=== PATIENT | female | born 1950 | race Caucasian/White ===

== ENCOUNTER → 2019-02-21 09:27 | Outpatient (BNVA) | payer MEDICARE, MEDICAID, SELFPAY | PROVIDERS: Family Provider Internal Medicine; PCP Internal Medicine; Referring Provider Internal Medicine; Visit Provider Specialist | DX: M19.042 Primary osteoarthritis, left hand (principal) | CPT/HCPCS: 73130 ==

== ENCOUNTER 2019-02-21 12:42 | Outpatient (CLI) | payer MEDICARE, MEDICAID, SELFPAY | END 2019-02-21 12:43 | disposition home or self-care (01) | LOC: SPT 12:43 | PROVIDERS: Family Provider Internal Medicine; PCP Internal Medicine; Visit Provider Specialist | DX: M18.0 Bilateral primary osteoarthritis of first carpometacarpal joints (principal) | CPT/HCPCS: L3924 ==

== ENCOUNTER 2019-02-23 10:59 | Outpatient (CLI) | payer MEDICARE, MEDICAID, SELFPAY ==
--- NOTE | 2019-02-23 11:16 | CT_ITS ---
WS: [id number] CT NECK WITH CONTRAST HISTORY: LOCALIZED SWELLING, MASS AND LUMP, NECK TECHNIQUE: Contiguous 5 mm axial images are performed through the neck with intravenous contrast. Sag ittal and coronal reformats are also submitted. All CT scans at [facility] use at least o ne of these dose optimization techniques: automated exposure control; mA and/or kV adjustment per pat ient size (includes targeted exams where dose is matched to clinical indication); or iterative recons truction. CONTRAST: CONTRAST: Omnipaque 300; 95 mL IV. DLP: 2052.69 mGycm COMPARISON: 10/22/2013 Mild asymmetry involving the larynx at the level of the pyriform sinuses and vocal cords. The LEFT py riform sinus is smaller caliber with increased soft tissue. No enhancing mass identified. There is sl ight soft tissue thickening along the posterior wall of the larynx. No focal cord abnormality. Torus tubarius and fossa of Rosenmuller and parapharyngeal fat are normal. There is a marker placed along the lateral LEFT neck in the area of a palpable abnormality. There is no underlying mass identified. This is at the level of the submandibular gland. No adenopathy. Thyroid gland and salivary glands are normally enhancing with no masses. Visualized portions of the skull base demonstrate no abnormalities. Small lacunar infarct versus tania vascular space on the RIGHT. Orbits and globes are within normal limits. No soft tissue masses. Visualized paranasal sinuses and mastoid air cells are normal. Stable micronodules RIGHT upper lobe. Mediastinal lymph nodes measure up to 11 mm. Lymph nodes were present on the prior study also. Nima herr to the prior examination of 10/07/2017. CT/CT neck w con* [id number] IMPRESSION: 1. Mild asymmetry of the LEFT pyriform sinus as compared to the RIGHT. No disc rete mass but there is some very slight increased soft tissue in the floor of t he pyriform sinus. Consider direct visualization to exclude early neoplasm. 2. No adenopathy.
[2019-02-23] MEDS: iohexol 300 mg/mL 100 mL Btl IV (11:41)
== END 2019-02-23 11:00 | disposition home or self-care (01) ==
PROVIDERS: Family Provider Internal Medicine; PCP Internal Medicine; Visit Provider Specialist
DX: R22.1 Localized swelling, mass and lump, neck (principal)
CPT/HCPCS: 70491; Q9967

== ENCOUNTER 2019-03-07 08:46 | Outpatient (CLI) | payer MEDICARE, MEDICAID, SELFPAY ==
--- NOTE | 2019-03-07 08:45 | USCV_ITS ---
Tatiana Alvarez Age: 68 Gender: F : 1950 Exam Date: 03/07/2019 09:06 Ordering Phys: Jevon Leyva MD ([email or web address]) Technologist: Elizabeth Durand Exam Location: [facility] [place] Indication: AI BP: 165 / 87 HR: 72 Rhythm: Sinus Technical Quality: Adequate MEASUREMENTS (Male / Female) Normal Values 2D ECHO LV Diastolic Diameter PLAX 4.1 cm 4.2 - 5.9 / 3.9 - 5.3 cm LV Systolic Diameter PLAX 2.9 cm LV Chamber Size 2.9 cm IVS Diastolic Thickness 1.3 cm 0.6 - 1.0 / 0.6 - 0.9 cm IVS Systolic Thickness 1.6 cm LVPW Diastolic Thickness 1.7 cm 0.6 - 1.0 / 0.6 - 0.9 cm LVPW Systolic Thickness 2.5 cm RV Chamber Size 1.7 cm LVOT Diameter 2.0 cm LV Ejection Fraction 2D Teich 58.2 % LV Ejection Fraction MOD 2C 66.9 % LV Ejection Fraction 2C AL 67.9 % LA Diameter 4.2 cm LA Width 2.5 cm LA Height 3.5 cm RA Width 2.0 cm RA Height 3.1 cm Aorta at Sinotubular Diameter 2.8 cm M-MODE LV Diastolic Diameter MM 4.3 cm 4.2 - 5.9 / 3.9 - 5.3 cm LV Systolic Diameter MM 2.1 cm LV Ejection Fraction MM Teich 83.3 % IVS Diastolic Thickness MM 0.8 cm 0.6 - 1.0 / 0.6 - 0.9 cm IVS Systolic Thickness MM 1.4 cm LVPW Diastolic Thickness MM 1.3 cm 0.6 - 1.0 / 0.6 - 0.9 cm LVPW Systolic Thickness MM 1.7 cm Aortic Annulus Diameter 2.8 cm LA Ao Ratio MM 1.5 MV E Point Septal Separation 0.6 cm DOPPLER AV Peak Velocity 152.0 cm/s LVOT Peak Velocity 112.0 cm/s AV Area Cont Eq vti 2.2 cm squared AV Area Cont Eq pk 2.4 cm squared MV Area PHT 3.2 cm squared Mitral E to A Ratio 0.7 MV E' Velocity 9.0 cm/s Mitral E to MV E' Ratio 11.1 Mitral E to LV E' Lateral Ratio 10.1 Mitral E to LV E' Septal Ratio 12.3 TR Peak Velocity 318.0 cm/s TR Peak Gradient 40.4 mmHg TV Peak E Velocity 57.0 cm/s Right Atrial Pressure 3.0 mmHg Pulmonary Artery Systolic Pressu 43.4 mmHg PV Peak Velocity 93.0 cm/s RV Acceleration Time 0.2 s RV Ejection Time 0.4 s RV AcT/ET 0.5 FINDINGS Left Ventricle Normal left ventricular cavity size. Mild left ventricular hypertrophy. Normal left ventricular systolic function. No regional wall motion abnormalities. Grade I/IV diastolic dysfunction (abnormal relaxation filling pattern), normal to mildly elevated filling pressures. Left ventricular ejection fraction is estimated at 65%. Right Ventricle Normal right ventricular size and systolic function. Mild pulmonary hypertension, RVSP 43.4 mmHg. Right Atrium The right atrium is normal in size. Left Atrium Mildly increased left atrial size. Mitral Valve Structurally normal mitral valve without significant stenosis or prolapse. There is no mitral regurgitation. Aortic Valve Structurally normal trileaflet aortic valve. No aortic valve stenosis. [id number] aortic valve regurgitation. Tricuspid Valve Structurally normal tricuspid valve. Mild tricuspid valve regurgitation. Pulmonic Valve Pulmonic valve not well visualized. Pericardium Normal pericardium without effusion. Aorta Normal ascending aorta dimension. CONCLUSIONS Normal left ventricular cavity size. Mild left ventricular hypertrophy. Normal left ventricular systolic function. No regional wall motion abnormalities. Grade I/IV diastolic dysfunction (abnormal relaxation filling pattern), normal to mildly elevated filling pressures. Left ventricular ejection fraction is estimated at 65%. Normal right ventricular size and systolic function. Mild pulmonary hypertension, RVSP 43.4 mmHg. Mildly increased left atrial size. Structurally normal trileaflet aortic valve. No aortic valve stenosis. [id number] aortic valve regurgitation. No change from the previous study done 04/12/2018 Dr. Jevon Leyva MD (Electronically Signed) Final Date: 08 March 2019 11:26 S
== END 2019-03-07 08:47 | disposition home or self-care (01) ==
LOC: US 08:48
PROVIDERS: Family Provider Internal Medicine; PCP Internal Medicine; Visit Provider Internal Medicine Cardiovascular Disease
DX: I35.1 Nonrheumatic aortic (valve) insufficiency (principal); I51.7 Cardiomegaly; I27.20 Pulmonary hypertension, unspecified
CPT/HCPCS: 93306

== ENCOUNTER 2019-03-27 09:28 | Outpatient (CLI) | payer MEDICARE, MEDICAID, SELFPAY ==
--- NOTE | 2019-03-27 09:35 | XR_ITS ---
WS: [id number] PROCEDURE: XR chest 2V* [id number] CLINICAL INFORMATION: COUGH,COPD,DYSPNEA COMPARISON: December 14, 2017 FINDINGS: Heart: Normal cardiac silhouette. Lungs: Moderate chronic emphysematous changes. Elevation left hemidiaphragm. No acute pulmonary infil trates. Chronic pleural thickening left lower lobe. Bones: Thoracic scoliosis convex right. Thoracic kyphosis. Osteopenia. XR/XR chest 2V* [id number] IMPRESSION: 1. Volume loss left lower lobe with chronic appearing pleural thickening is un changed from previous. 2. Chronic emphysematous changes. No acute pulmonary infiltrates. 3. Thoracic curve convex right with mild thoracic kyphosis.
== END 2019-03-27 09:29 | disposition home or self-care (01) ==
LOC: RADWPI 09:32
PROVIDERS: Family Provider Internal Medicine; PCP Internal Medicine; Visit Provider Nurse Practitioner Family
DX: R05 Cough (principal); J44.9 Chronic obstructive pulmonary disease, unspecified; R06.00 Dyspnea, unspecified; M79.602 Pain in left arm; M79.601 Pain in right arm; F17.210 Nicotine dependence, cigarettes, uncomplicated
CPT/HCPCS: 71046; 95885; 95912

== ENCOUNTER 2019-04-12 15:58 | Outpatient (CLI) | payer MEDICARE, MEDICAID, SELFPAY ==
[2019-04-12 16:35] LABS: Alanine Aminotransferase 16 U/L (0-33); Albumin Level 4.4 g/dL (3.5-5.2); Alkaline Phosphatase 86 IU/L (35-105); Aspartate Amino Transferase 21 U/L (0-32); Blood Urea Nitrogen 13 mg/dL (8-23); C Reactive Protein 2.2 mg/L (0.0-4.9); Calcium 10.4 mg/dL (8.5-10.5); Carbon Dioxide 25 mmol/L (22-29); Chloride 106 mmol/L (98-107); Glomerular Filtration Rate 82.7 mL/min (90-130); Glucose 90 mg/dL (65-115); Sodium 145 mmol/L (136-145); Total Bilirubin 0.3 mg/dL (0.15-1.2); Total Protein 7.4 g/dL (6.6-8.7)
[2019-04-12 16:38] LABS: Basophils % 0.4 %; Eosinophils # 0.1 10^3/uL (0.0-0.8); Hematocrit 41.5 % (37.0-47.0); Hemoglobin 13.4 g/dL (11.5-15.3); Lymphocytes # 2.7 10^3/uL (0.8-4.8); Lymphocytes % 39.8 %; Mean Corpuscular HGB Conc 32.3 g/dL (30.0-36.0); Mean Corpuscular Hemoglobin 33.1 pg (28.0-34.0); Mean Corpuscular Volume 102.5 fL (81-99); Mean Platelet Volume 9.1 fL (7.4-10.4); Monocytes # 0.5 10^3/uL (0.2-0.9); Monocytes % 6.5 %; Neutrophils # 3.6 10^3/uL (1.8-7.7); Neutrophils % 52.2 %; Nucleated Red Blood Cells % 0 %; Platelet Count 249 10^3/cmm (130-400); Red Blood Count 4.05 10^6/uL (4.1-5.3); Red Cell Distribution Width 12.9 % (12.1-15.1); White Blood Count 6.9 10^3/uL (4.0-10.0)
[2019-04-12 18:14] LABS: Erythrocyte Sedimentation Rate 25 mm/hr (0-15)
[2019-04-14 11:56] LABS: CENTROMERE B ANTIBODY <1.0 NEG AI (<1.0 NEG); JO-1 ANTIBODY <1.0 NEG AI (<1.0 NEG); RNP ANTIBODY <1.0 NEG AI (<1.0 NEG); SCL-70 ANTIBODY <1.0 NEG AI (<1.0 NEG); SJOGREN'S ANTIBODY (SS-A) <1.0 NEG AI (<1.0 NEG); SM ANTIBODY <1.0 NEG AI (<1.0 NEG)
[2019-04-14 13:17] LABS: ANA SCREEN, IFA NEGATIVE (NEGATIVE)
[2019-04-15 09:40] LABS: DNA AB (DS) CRITHIDIA,IFA NEGATIVE (NEGATIVE)
[2019-04-16 11:57] LABS: COMPLEMENT COMPONENT C3C 128 mg/dL (83-193); COMPLEMENT COMPONENT C4C 32 mg/dL (15-57)
[2019-04-16 13:17] LABS: COMPLEMENT, TOTAL (CH50) 60 U/mL (31-60)
[2019-04-16 16:56] LABS: THYROID PEROXIDASE ANTIBODIES 1 IU/mL (<9)
== END 2019-04-12 15:59 | disposition home or self-care (01) ==
LOC: LAB 16:03
PROVIDERS: Family Provider Internal Medicine; PCP Internal Medicine; Visit Provider Specialist
DX: M18.0 Bilateral primary osteoarthritis of first carpometacarpal joints (principal); M79.642 Pain in left hand; M79.641 Pain in right hand
CPT/HCPCS: 80053; 85025; 85651; 86140; 86431; L3809

== ENCOUNTER 2019-04-12 16:42 | Outpatient (CLI) | payer MEDICARE, MEDICAID, SELFPAY | END 2019-04-12 16:43 | disposition home or self-care (01) | LOC: SPT 16:43 | PROVIDERS: Family Provider Internal Medicine; Visit Provider Specialist | DX: M18.0 Bilateral primary osteoarthritis of first carpometacarpal joints (principal) | CPT/HCPCS: L3809 ==

== ENCOUNTER 2019-05-01 06:00 | Outpatient (RCR) | payer MEDICARE, MEDICAID, SELFPAY | END 2019-05-01 23:00 | disposition home or self-care (01) | LOC: SOT 06:00 | PROVIDERS: Family Provider Internal Medicine; PCP Internal Medicine; Referring Provider Specialist; Visit Provider Specialist | DX: M18.0 Bilateral primary osteoarthritis of first carpometacarpal joints (principal) | CPT/HCPCS: 97166 ==

== ENCOUNTER 2019-05-09 06:00 | Outpatient (RCR) | payer MEDICARE, MEDICAID, SELFPAY | END 2019-06-07 23:59 | disposition home or self-care (01) | LOC: SOT 06:00 | PROVIDERS: Family Provider Internal Medicine; PCP Internal Medicine; Visit Provider Specialist | DX: M18.0 Bilateral primary osteoarthritis of first carpometacarpal joints (principal) | CPT/HCPCS: 97018; 97530 ==

== ENCOUNTER 2019-06-08 06:00 | Outpatient (RCR) | payer MEDICARE, MEDICAID, SELFPAY | END 2019-07-08 23:59 | disposition home or self-care (01) | LOC: SOT 06:00 | PROVIDERS: PCP Internal Medicine; Visit Provider Specialist | DX: M19.042 Primary osteoarthritis, left hand (principal); M19.041 Primary osteoarthritis, right hand | CPT/HCPCS: 97018; 97530 ==

== ENCOUNTER → 2019-08-07 09:12 | Outpatient (BNVA) | payer MEDICARE, MEDICAID, SELFPAY | PROVIDERS: PCP Internal Medicine; Visit Provider Internal Medicine Rheumatology | DX: M19.041 Primary osteoarthritis, right hand (principal); Z79.899 Other long term (current) drug therapy; M19.042 Primary osteoarthritis, left hand; M18.0 Bilateral primary osteoarthritis of first carpometacarpal joints; M25.50 Pain in unspecified joint; F17.210 Nicotine dependence, cigarettes, uncomplicated; Z79.891 Long term (current) use of opiate analgesic | CPT/HCPCS: 36415; 73130; 73630; 80076; 82306; 82565; 85025; 85651; 86140; 99203 ==

== ENCOUNTER 2019-08-07 10:45 | Outpatient (CLI) | payer MEDICARE, MEDICAID, SELFPAY ==
--- NOTE | 2019-08-07 10:51 | XRR_ITS ---
PROCEDURE INFORMATION: Exam: XR Left Foot Complete Exam date and time: 08/07/2019 11:17 AM Age: 68 years old Clinical indication: Condition or disease; Other: Inflammatory arthritis; Bilateral; Prior surgery; Surgery type: Carpal tunnel TECHNIQUE: Imaging protocol: XR Left foot. Views: 3 or more views. COMPARISON: No relevant prior studies available. FINDINGS: Bones/joints: No fracture. No dislocation. No joint space narrowing. No erosions. There are tiny calcaneal plantar and Achilles tendon insertion enthesophytes. Suggestion that there may have been a prior distal 5th metatarsal osteotomy. Soft tissues: There appears to be superficial soft tissue swelling involving the dorsum of the foot and anterior to the ankle on the lateral view. XR/XR foot LT min 3V* [id number] IMPRESSION: No acute osseous abnormality.
--- NOTE | 2019-08-07 10:51 | XRR_ITS ---
PROCEDURE INFORMATION: Exam: XR Right Hand Exam date and time: 08/07/2019 12:09 PM Age: 68 years old Clinical indication: Condition or disease; Other: Inflammatory arthritis; Hand; Bilateral; Prior surgery; Surgery type: Carpal tunnel TECHNIQUE: Imaging protocol: XR Right hand. Views: 3 or more views. COMPARISON: CR XR hand RT min 3V* [id number] 02/21/2019 9:32 AM FINDINGS: Bones/joints: No fracture. No dislocation. There is severe degeneration of the 1st carpometacarpal joint. Additional significant degeneration at the interphalangeal joint of the thumb. Lesser degree of degeneration at the 1st, 2nd, and 3rd metacarpophalangeal joints. Degenerative changes also present at the distal interphalangeal joint of the index finger. Soft tissues: No acute soft tissue abnormality. 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
--- NOTE | 2019-08-07 10:51 | XRR_ITS ---
PROCEDURE INFORMATION: Exam: XR Right Foot Complete Exam date and time: 08/07/2019 11:15 AM Age: 68 years old Clinical indication: Condition or disease; Other: Inflammatory arthritis; Bilateral TECHNIQUE: Imaging protocol: XR Right foot. Views: 3 or more views. COMPARISON: No relevant prior studies available. FINDINGS: Bones/joints: No fracture. No dislocation. No joint space narrowing. No erosions. There are tiny calcaneal plantar and Achilles tendon insertion enthesophytes. Prior distal 5th metatarsal osteotomy with 2 fixation screws. Suspect prior surgical resection of the distal aspect of the 4th and 5th proximal phalanges. Soft tissues: There appears to be superficial soft tissue swelling involving the dorsum of the foot and anterior to the ankle on the lateral view. XR/XR foot RT min 3V* [id number] IMPRESSION: No acute osseous abnormality.
--- NOTE | 2019-08-07 10:51 | XRR_ITS ---
PROCEDURE INFORMATION: Exam: XR Left Hand Exam date and time: 08/07/2019 12:09 PM Age: 68 years old Clinical indication: Condition or disease; Other: Inflammatory arthritis; Hand; Bilateral; Prior surgery; Surgery type: Carpal tunnel TECHNIQUE: Imaging protocol: XR Left hand. Views: 3 or more views. COMPARISON: CR XR hand LT min 3V* [id number] 02/21/2019 9:32 AM FINDINGS: Bones/joints: No fracture. No dislocation. There is severe degeneration of the 1st carpometacarpal joint. Additional significant degeneration at the interphalangeal joint of the thumb. Lesser degree of degeneration at the 1st, 2nd, and 3rd metacarpophalangeal joints. Degenerative changes also present at the distal interphalangeal joints of all fingers. Mild degenerative change at the radiocarpal joint space. Soft tissues: No acute soft tissue abnormality. 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
[2019-08-07 11:46] LABS: Basophils % 0.6 %; Eosinophils # 0.1 10^3/uL (0.0-0.8); Eosinophils % 0.9 %; Hemoglobin 12.7 g/dL (11.5-15.3); Lymphocytes # 2.7 10^3/uL (0.8-4.8); Lymphocytes % 40.5 %; Mean Corpuscular HGB Conc 32.6 g/dL (30.0-36.0); Mean Corpuscular Hemoglobin 32.9 pg (28.0-34.0); Mean Platelet Volume 9.4 fL (7.4-10.4); Monocytes # 0.4 10^3/uL (0.2-0.9); Monocytes % 5.6 %; Neutrophils # 3.5 10^3/uL (1.8-7.7); Neutrophils % 52.2 %; Nucleated Red Blood Cells % 0 %; Platelet Count 239 10^3/cmm (130-400); Red Blood Count 3.86 10^6/uL (4.1-5.3); White Blood Count 6.6 10^3/uL (4.0-10.0)
[2019-08-07 12:27] LABS: 25 Hydroxy Vitamin D 58 ng/mL (30-100); Alanine Aminotransferase 11 U/L (0-33); Albumin Level 4.5 g/dL (3.5-5.2); Alkaline Phosphatase 76 IU/L (35-105); Aspartate Amino Transferase 19 U/L (0-32); C Reactive Protein 4.2 mg/L (0.0-4.9); Glomerular Filtration Rate 98.8 mL/min (90-130); Total Bilirubin 0.2 mg/dL (0.15-1.2); Total Protein 7.5 g/dL (6.6-8.7)
[2019-08-07 12:33] LABS: Erythrocyte Sedimentation Rate 23 mm/hr (0-15)
[2019-08-08 13:00] LABS: Cyclic Citrullinated Peptide <16 UNITS
== END 2019-08-07 10:46 | disposition home or self-care (01) ==
LOC: RAD 10:49
PROVIDERS: PCP Internal Medicine; Visit Provider Internal Medicine Rheumatology
DX: Z79.899 Other long term (current) drug therapy; M19.042 Primary osteoarthritis, left hand; M19.041 Primary osteoarthritis, right hand; M19.90 Unspecified osteoarthritis, unspecified site; M18.0 Bilateral primary osteoarthritis of first carpometacarpal joints; M25.50 Pain in unspecified joint; F17.210 Nicotine dependence, cigarettes, uncomplicated; Z79.891 Long term (current) use of opiate analgesic
CPT/HCPCS: 73130; 73630; 80076; 82306; 82565; 85025; 85651; 86140

== ENCOUNTER 2019-09-12 10:59 | Outpatient (CLI) | payer MEDICARE, MEDICAID, SELFPAY ==
--- NOTE | 2019-09-12 11:07 | CT_ITS ---
WS: [id number] CT LUNG CANCER SCREENING DLP: 76.35 mGy.cm DIvol: 2.27 mGy CLINICAL INFORMATION SCREENING VISIT: Baseline COMPARISON: 10/07/2017, 12/11/2014. FINDINGS Diagnostic quality: Satisfactory Comments: None. Lung Nodules: There are several bilateral calcified pulmonary nodules which are benign. There are mul ti lobar less than 3 mm nodules in the periphery of all lobes. There are no nodules greater than 3 mm . No endobronchial lesions. Lungs: Hyperinflated lungs with emphysema. Mild early changes of bronchiectasis with bronchial thicke juan at the lingula and LEFT lower lobe. There is some very minimal scarring at the LEFT lung base. L farideh-term stability of biapical pleural thickening and scarring and fibrosis. Heart: Mild enlargement of the heart chambers. No pericardial effusion. There is scattered coronary a rtery calcifications. Other findings: Moderate atherosclerosis aorta with no aneurysm. There are numerous mediastinal and h ilar lymph nodes. These are predominantly indeterminate lymph nodes which are also present on the juan josé or study from 2018. Small hiatal hernia. Stable LEFT adrenal adenoma measuring 1.6 cm. Stable LEFT hepatic cyst at 1.[address]/CT lung screening [id number] IMPRESSION: LUNG-RADS: 2-Benign Appearance or Behavior FOLLOW UP: 12 Month: Continue annual screening with LDCT 1. Long-term stability indeterminate mediastinal and hilar lymph nodes. 2. Benign stable LEFT hepatic cyst and LEFT adrenal adenoma. 3. Prior granulomatous disease.
== END 2019-09-12 11:00 | disposition home or self-care (01) ==
LOC: CT 11:00
PROVIDERS: PCP Internal Medicine; Visit Provider Internal Medicine
DX: Z12.2 Encounter for screening for malignant neoplasm of respiratory organs (principal); F17.210 Nicotine dependence, cigarettes, uncomplicated; K76.89 Other specified diseases of liver; D35.02 Benign neoplasm of left adrenal gland
CPT/HCPCS: G0297

== ENCOUNTER → 2019-11-14 13:54 | Outpatient (BNVA) | payer MEDICARE, MEDICAID, SELFPAY | PROVIDERS: PCP Internal Medicine; Visit Provider Internal Medicine Rheumatology | DX: M19.041 Primary osteoarthritis, right hand (principal); M19.042 Primary osteoarthritis, left hand; M19.90 Unspecified osteoarthritis, unspecified site; F17.210 Nicotine dependence, cigarettes, uncomplicated; M18.0 Bilateral primary osteoarthritis of first carpometacarpal joints; Z79.899 Other long term (current) drug therapy | CPT/HCPCS: 99213 ==

== ENCOUNTER 2019-11-28 13:55 | Outpatient (CLI) | payer MEDICARE, MEDICAID, SELFPAY ==
--- NOTE | 2019-11-28 14:01 | MM_ITS ---
WS: [id number] BILATERAL DIGITAL SCREENING MAMMOGRAPHY WITH CAD CLINICAL INFORMATION: SCREENING HISTORY: Screening mammogram. No current complaints. COMPARISON: TECHNIQUE: Bilateral CC and MLO views. FINDINGS: Scattered fibroglandular densities bilaterally. No suspicious focal mass, asymmetry, calcifications, or architectural distortion. No evidence of malignancy. Punctate and lucent centered calcifications. Vascular calcification. MM/[place] [id number] IMPRESSION: BI-RADS: 2-Benign FOLLOW UP: 1 Year Follow-up Recommend return to annual screening mammography.
--- NOTE | 2019-11-28 14:44 | XR_ITS ---
WS: [id number] DEXA (DUAL ENERGY X-RAY ABSORPTIOMETRY) Bone mineral density was performed using a [employer] machine. HISTORY: ASYMPTOMATIC POSTMENOPAUSAL STATUS COMPARISON: None available. Lumbar spine BMD (L1-L4): 1.146 g/cm2 T score: -0.3 Z score: 1.3 Total hip BMD: Left: 0.841 g/cm2. T score: -1.3 Z score: 0.1 Right: 0.829 g/cm2. T score: -1.4 Z score: 0.0 10 year probability of a major osteoporotic fracture is 16%. Moderate LEFT convex rotoscoliosis lumbar spine. XR/XR DEXA axial skeleton* [id number] IMPRESSION: OSTEOPENIA based upon the WHO classification for females.
== END 2019-11-28 13:56 | disposition home or self-care (01) ==
LOC: RADSHAW 13:58
PROVIDERS: PCP Internal Medicine; Visit Provider Internal Medicine
DX: Z12.31 Encounter for screening mammogram for malignant neoplasm of breast (principal); Z78.0 Asymptomatic menopausal state; M85.89 Other specified disorders of bone density and structure, multiple sites
CPT/HCPCS: 77067; 77080

== ENCOUNTER 2019-12-05 09:11 | Outpatient (CLI) | payer MEDICARE, MEDICAID, SELFPAY ==
--- NOTE | 2019-12-05 09:26 | NM_ITS ---
WS: [id number] NUCLEAR MEDICINE GASTRIC EMPTYING EXAMINATION HISTORY: EARLY SATIETY COMPARISON: None available. TECHNIQUE: The patient ingested a meal containing 1.1 mCi of Tc 99m sulfur colloid mixed with eggs. The patient was placed in supine position and imaging over the abdomen was performed for a total of 1 20 minutes. Computer acquisition with the region of interest placed over the stomach to evaluate alexa mabel emptying half-time. Good distention of the stomach with the radionuclide material. There is very little movement of the r adionuclide into the proximal small bowel. At 120 minutes approximately 34% emptying of the stomach. NM/[place] [id number] IMPRESSION: Moderate gastroparesis. Only 34% emptying of the stomach at 2 hours.
== END 2019-12-05 09:12 | disposition home or self-care (01) ==
PROVIDERS: PCP Internal Medicine; Visit Provider Nurse Practitioner
DX: R68.81 Early satiety (principal); K31.84 Gastroparesis
CPT/HCPCS: 78264; A9541

== ENCOUNTER → 2019-12-21 08:39 | Outpatient (BNVA) | payer MEDICARE, MEDICAID, SELFPAY | PROVIDERS: PCP Internal Medicine; Visit Provider Internal Medicine Rheumatology | DX: Z79.899 Other long term (current) drug therapy (principal) | CPT/HCPCS: 36415; 80076; 82565; 85025; 85651; 86140 ==

== ENCOUNTER → 2020-02-04 12:32 | Outpatient (BNVA) | payer MEDICARE, MEDICAID, SELFPAY | PROVIDERS: PCP Internal Medicine; Visit Provider Internal Medicine Rheumatology | DX: M19.90 Unspecified osteoarthritis, unspecified site (principal); Z79.899 Other long term (current) drug therapy | CPT/HCPCS: 36415; 80076; 82565; 85025; 85651; 86140 ==

== ENCOUNTER 2020-02-21 11:43 | Outpatient (CLI) | payer MEDICARE, MEDICAID, SELFPAY ==
--- NOTE | 2020-02-21 12:45 | USCV_ITS ---
Tatiana Alvarez Age: 69 Gender: F : 1950 Exam Date: 02/21/2020 12:52 Ordering Phys: Jevon Leyva MD ([email or web address]) Technologist: Dara Pearce Exam Location: [facility] [place] Indication: AORTIC VALVE REGURGITATION BP: 140 / 80 HR: 62 Rhythm: Sinus Technical Quality: Fair MEASUREMENTS (Male / Female) Normal Values 2D ECHO LV Diastolic Diameter PLAX 4.1 cm 4.2 - 5.9 / 3.9 - 5.3 cm LV Systolic Diameter PLAX 2.5 cm LV Chamber Size 3.8 cm IVS Diastolic Thickness 1.4 cm 0.6 - 1.0 / 0.6 - 0.9 cm IVS Systolic Thickness 1.6 cm LVPW Diastolic Thickness 1.4 cm 0.6 - 1.0 / 0.6 - 0.9 cm LVPW Systolic Thickness 1.3 cm RV Chamber Size 2.1 cm LVOT Diameter 2.0 cm LV Ejection Fraction 2D Teich 72.1 % LV Ejection Fraction MOD 2C 39.0 % LV Ejection Fraction 2C AL 36.8 % LA Diameter 2.9 cm LA Width 2.2 cm LA Height 4.0 cm RA Width 2.6 cm RA Height 3.7 cm Aorta at Sinotubular Diameter 3.5 cm M-MODE LV Diastolic Diameter MM 4.5 cm 4.2 - 5.9 / 3.9 - 5.3 cm LV Systolic Diameter MM 2.6 cm LV Ejection Fraction MM Teich 73.4 % IVS Diastolic Thickness MM 1.1 cm 0.6 - 1.0 / 0.6 - 0.9 cm IVS Systolic Thickness MM 1.3 cm LVPW Diastolic Thickness MM 1.1 cm 0.6 - 1.0 / 0.6 - 0.9 cm LVPW Systolic Thickness MM 1.6 cm RV Diastolic Diameter MM 1.5 cm Aortic Annulus Diameter 3.6 cm LA Ao Ratio MM 1.1 MV E Point Septal Separation 0.3 cm DOPPLER AV Peak Velocity 167.0 cm/s LVOT Peak Velocity 104.0 cm/s AV Area Cont Eq vti 2.1 cm squared AV Area Cont Eq pk 2.0 cm squared MV Area PHT 3.7 cm squared Mitral E to A Ratio 0.9 MV E' Velocity 61.5 cm/s Mitral E to MV E' Ratio 13.7 Mitral E to LV E' Lateral Ratio 15.0 Mitral E to LV E' Septal Ratio 12.7 TR Peak Velocity 261.4 cm/s TR Peak Gradient 27.3 mmHg TR Mean Velocity 199.7 cm/s TR Mean Gradient 17.4 mmHg TR Velocity Time Integral 101.6 cm TV Peak E Velocity 65.0 cm/s Right Atrial Pressure 3.0 mmHg Pulmonary Artery Systolic Pressu 30.3 mmHg PV Peak Velocity 59.0 cm/s RV Acceleration Time 0.2 s RV Ejection Time 0.4 s RV AcT/ET 0.5 FINDINGS Left Ventricle Normal left ventricular size and systolic function with no regional wall motion abnormalities. LVEF is 55 to 60%. Grade 1 diastolic dysfunction is seen. Right Ventricle The right ventricle is normal in size and function. Right Atrium The right atrium is normal in size. Left Atrium The left atrium is normal in size. Mitral Valve Structurally normal mitral valve without significant stenosis or prolapse. There is trace mitral regurgitation. Aortic Valve Structurally normal aortic valve without significant sclerosis or stenosis. There is mild to moderate aortic regurgitation. Tricuspid Valve Structurally normal tricuspid valve without significant stenosis or regurgitation. RVSP is 30 to 35 millimeters of mercury. Pulmonic Valve Structurally normal pulmonic valve without significant stenosis. There is no pulmonic regurgitation. Pericardium Normal pericardium without effusion. Aorta Normal ascending aorta dimension. CONCLUSIONS LV systolic function is normal with EF of 55 to 60%. Grade 1 diastolic dysfunction is seen. There is mild to moderate aortic regurgitation. Trace mitral regurgitation is seen. RVSP is 30-35mmhg. Mild pulmonary hypertension is seen. Compared to prior echocardiogram from 10/28/2019, no significant changes are seen. Marquis Strickland MD (Electronically Signed) Final Date: 25 February 2020 13:39 S
== END 2020-02-21 11:44 | disposition home or self-care (01) ==
PROVIDERS: PCP Internal Medicine; Visit Provider Internal Medicine Cardiovascular Disease
DX: I35.1 Nonrheumatic aortic (valve) insufficiency (principal); I27.20 Pulmonary hypertension, unspecified
CPT/HCPCS: 93306

== ENCOUNTER → 2020-02-28 10:55 | Outpatient (BNVA) | payer MEDICARE, MEDICAID, SELFPAY | PROVIDERS: PCP Internal Medicine; Visit Provider Internal Medicine Rheumatology | DX: M19.041 Primary osteoarthritis, right hand (principal); M19.042 Primary osteoarthritis, left hand; Z79.899 Other long term (current) drug therapy; F17.210 Nicotine dependence, cigarettes, uncomplicated | CPT/HCPCS: 99213; 99214 ==

== ENCOUNTER → 2020-04-08 11:31 | Outpatient (BNVA) | payer MEDICARE, MEDICAID, SELFPAY | PROVIDERS: PCP Internal Medicine; Visit Provider Orthopaedic Surgery | DX: M54.9 Dorsalgia, unspecified (principal) | CPT/HCPCS: 72110 ==

== ENCOUNTER 2020-05-12 08:35 | Outpatient (CLI) | payer MEDICARE, MEDICAID, SELFPAY ==
[2020-05-12 08:58] VITALS: BMI 29.0
--- NOTE | 2020-05-12 08:58 | ECG_ITS ---
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 Interpretive Statements NAME OF STUDY: LEXISCAN SESTAMIBI STRESS TEST INDICATION: [Chest Pain] Procedure: At the baseline, blood pressure was 152/93 mmHg, with a heart rate of 74 bpm. The electrocardiogram showed normal sinus rhythm, normal axis with normal ST and T waves. The Lexiscan was infused over a duration of 20 seconds. A total of 0.4 mg of Lexiscan was infused. Stress phase was continued for a total of 5 minutes. Heart rate at the end of stress phase was 86 bpm, with a blood pressure of 158/79 mmHg. The EKG at the peak infusion revealed sinus rhythm with no significant ST-T wave changes. Sestamibi was injected 20 seconds after the Lexiscan infusion. Blood pressure at the end of recovery phase was 151/83 mmHg, with a heart rate of 85 bpm. Conclusion: 1. Normal EKG response to Lexiscan infusion. 2. No Lexiscan induced chest pain or cardiac arrhythmia. 3. Normal blood pressure and heart rate response. 4. Sestamibi/sestamibi perfusion scan pending; see separate report. Electronically Signed On 06-10-2020 12:40:26 CDT by Marquis Strickland M.D. [id number]
--- NOTE | 2020-05-12 08:59 | NMCV_ITS ---
NM damion perf SPECT r/s* [id number] Tatiana Alvarez Age: 69 Gender: F : 1950 Exam Date: 05/12/2020 10:10 Ordering Phys: Marquis Strickland M.D ([email or web address]) Technologist: GREGORY Raya Exam Location: [facility] Indications: CHEST PAIN STRESS TEST [facility] IMAGE PROTOCOL Rest/Stress 1 Lexiscan Day Radiopharmaceutical Dose (mCi) Administration Site Administered by Rest: Tc-99m 10.6 IV GREGORY Raya Sestamibi Stress:Tc-99m 32.4 IV GREGORY Randall Sestamibi Rest: 12-May-2020 60 Discovery 630 Stress: 12-May-2020 30 Discovery 630 0.4mg Lexiscan. Images obtained in supine and prone position. SPECT RESULTS Technical Quality: Excellent Raw Data Analysis: Normal Image Corrections: No attenuation or motion correction applied Summed Stress Score: 5 Summed Rest Score: 0 Summed Difference Score: 5 PERFUSION FINDINGS There is moderate in size, reversible perfusion defect in the apical, apical lateral and mid lateral poole. This is consistent with ischemia FUNCTIONAL RESULTS (calculated via Gated SPECT) Stress Image LV EF (%): 78 Stress EDV (mL):68 TID: 1.09 Stress ESV (mL):15 FUNCTIONAL FINDINGS: There is normal left ventricular systolic function. IMPRESSIONS 1. There is moderate in size, reversible perfusion defect of the apical, apical lateral and mid lateral poole. This is consistent with ischemia 2. LV systolic function is normal Marquis Strickland MD (Electronically Signed) Final Date: 12 May 2020 17:01 S
[2020-05-12] MEDS: regadenoson 0.4 Mg/5 ml Syringe IVP (10:37)
[2020-05-12 10:52] VITALS: BP 158/79; PULSE 86
== END 2020-05-12 08:36 | disposition home or self-care (01) ==
LOC: CDL 08:38
PROVIDERS: PCP Internal Medicine; Visit Provider Internal Medicine
DX: R07.9 Chest pain, unspecified (principal)
CPT/HCPCS: 78452; 93017; A9500; J2785

== ENCOUNTER → 2020-06-02 11:02 | Outpatient (BNVA) | payer MEDICARE, MEDICAID, SELFPAY | PROVIDERS: PCP Internal Medicine; Visit Provider Internal Medicine Pulmonary Disease | DX: R94.39 Abnormal result of other cardiovascular function study (principal); Z20.822 Contact with and (suspected) exposure to COVID-19 | CPT/HCPCS: 87635 ==

== ENCOUNTER 2020-06-04 11:55 | Outpatient (CLI) | payer MEDICARE, MEDICAID, SELFPAY ==
--- NOTE | 2020-06-04 12:50 | PFTS_ITS ---
Date of Study:06/04/20 Date of Dictation: 06/05/2020 MECHANICS: Prebronchodilator forced vital capacity (FVC) is normal. Prebronchodilator forced expiratory volume in one second (FEV1) is normal. FEV1/FVC is normal. Postbronchodilator study not performed. FLOW VOLUME LOOP: Normal . LUNG VOLUMES: TLC is normal. RV is normal. DIFFUSING CAPACITY FOR CARBON MONOXIDE: Moderately reduced 55%. . INTERPRETATION: The spirometry and lung volumes are normal. There is isolated moderately reduced gas transfer suggestive of pulmonary vascular disease. Please correlate clinically. MTDD
== END 2020-06-04 11:56 | disposition home or self-care (01) ==
LOC: RT 12:03
PROVIDERS: PCP Internal Medicine; Visit Provider Internal Medicine
DX: J44.9 Chronic obstructive pulmonary disease, unspecified (principal)
CPT/HCPCS: 94010; 94618; 94726; 94729

== ENCOUNTER → 2020-06-12 08:34 | Outpatient (BNVA) | payer MEDICARE, MEDICAID, SELFPAY | PROVIDERS: PCP Internal Medicine; Visit Provider Internal Medicine Rheumatology | DX: M06.041 Rheumatoid arthritis without rheumatoid factor, right hand (principal); M06.042 Rheumatoid arthritis without rheumatoid factor, left hand; M19.041 Primary osteoarthritis, right hand; M19.042 Primary osteoarthritis, left hand; Z79.899 Other long term (current) drug therapy; F17.210 Nicotine dependence, cigarettes, uncomplicated | CPT/HCPCS: 99214 ==

== ENCOUNTER → 2020-07-09 12:18 | Outpatient (BNVA) | payer MEDICARE, MEDICAID, SELFPAY | PROVIDERS: PCP Internal Medicine; Visit Provider Internal Medicine | DX: I50.9 Heart failure, unspecified (principal); R07.9 Chest pain, unspecified; Z20.822 Contact with and (suspected) exposure to COVID-19 | CPT/HCPCS: 87635 ==

== ENCOUNTER 2020-07-14 11:05 | Observation (INO) | payer MEDICARE, MEDICAID, SELFPAY ==
[2020-06-26 09:25] LABS: Blood Urea Nitrogen 23 mg/dL (8-23); Calcium 8.9 mg/dL (8.5-10.5); Carbon Dioxide 26 mmol/L (22-29); Chloride 103 mmol/L (98-107); Glucose 93 mg/dL (65-115); NT Pro B Type Natriuretic Pept 99 pg/mL (0-125); Osmolality Calculated 293 mOsm/kg (285-295); Sodium 140 mmol/L (136-145)
[2020-07-09 08:36] LABS: Basophils % 0.5 %; Eosinophils # 0.1 10^3/uL (0.0-0.8); Eosinophils % 1.2 %; Hematocrit 35.9 % (37.0-47.0); Hemoglobin 11.4 g/dL (11.5-15.3); Lymphocytes # 2.2 10^3/uL (0.8-4.8); Lymphocytes % 38.6 %; Mean Corpuscular HGB Conc 31.8 g/dL (30.0-36.0); Mean Corpuscular Hemoglobin 33.1 pg (28.0-34.0); Mean Corpuscular Volume 104.4 fL (81-99); Mean Platelet Volume 9.3 fL (7.4-10.4); Monocytes # 0.7 10^3/uL (0.2-0.9); Monocytes % 11.3 %; Neutrophils # 2.77 10^3/uL (1.8-7.7); Neutrophils % 48.1 %; Nucleated Red Blood Cells % 0 %; Platelet Count 259 10^3/cmm (130-400); Red Blood Count 3.44 10^6/uL (4.1-5.3); Red Cell Distribution Width 13.2 % (12.1-15.1); White Blood Count 5.8 10^3/uL (4.0-10.0)
[2020-07-09 08:55] LABS: INR 0.87 (0.8-1.2)
[2020-07-09 09:04] LABS: Anion Gap 13.9 (5-19); Blood Urea Nitrogen 18 mg/dL (8-23); Calcium 8.6 mg/dL (8.5-10.5); Carbon Dioxide 26 mmol/L (22-29); Chloride 103 mmol/L (98-107); Glucose 96 mg/dL (65-115); Osmolality Calculated 290 mOsm/kg (285-295); Potassium 3.9 mmol/L (3.5-5.1); Sodium 139 mmol/L (136-145)
[2020-07-14] VITALS (16 sets, daily range): BP systolic 120–159; BP diastolic 55–76; PULSE 61–93; RESP 9–23; TEMP 36.6; O2SAT 89–94; BMI 30.7
--- NOTE | 2020-07-14 07:30 | XACV_ITS ---
Ht: 160 cm Wt: 72 kg BSA: 1.81 m2 Gender: Female : 1950 Any Known Allergies: Other Exam Priority: Routine Procedure(s): Procedure Description: Diagnostic procedure Procedure Description: Left Heart Catheterization Procedure Description: Coronary Angiography Procedure Description: Pressure Wire Diagnostic Cath Status: Elective Diagnostic Findings * Left Main: Ostium has 30-40% stenosis, CHAVO: 3 flow. * Left Anterior Descending has no disease. * Circumflex has no disease. * Right Coronary Artery has no disease. * Coronary angiography shows right dominance. Interventional Findings * Procedure detail: After diagnostic pictures we decided to perform FFR of ostial left main artery. A JL 3.5 guide catheter was used to engage left main. After zeroing and equalization the pressure wire was advanced into the left circumflex artery past the ostial left main lesion. IV adenosine was used to perform FFR. FFR value of 0.94 was obtained. This was nonischemic. FFR wire was removed and final angiogram was performed that showed excellent CHAVO-3 flow. Guidewire and guide catheter were removed. TR band was applied to achieve hemostasis and patient left the Cnc Operator Machinist in a stable condition.. Conclusions 1. Left main artery has mild to moderate disease. FFR is non ischemic. 2. Otherwise no significant disease. Recommendations * Aggressive risk factor modification. * Outpatient cardiology follow up. Interventional RX Recommendation: medical therapy and/or counseling Diagnostic RX Recommendation: other cardiac therapy w/o CABG/PCI Anticoagulation: Heparin Pressures Phase:Rest AO : 146 / 70 ( 103 ) @ 8:50:00 AM 202 / 39 ( 96 ) @ 9:16:00 AM 205 / 60 ( 114 ) @ 9:16:00 AM LV : 208 / 28 / 33 @ 9:16:00 AM Clinical Evaluation EBL: 5mL-10mL Procedural Details Procedure Consent Obtained. Pre-Procedure Time Out. Identified patient by full name and date of as verbalized by the patient/guarantor. Does the consent match the physician's order: Yes. Accurate & Complete Informed Consent: Yes. Inpatient/Outpatient History & Physical on Chart: Yes. If H&P is completed, is and addenduem needed: No; If yes, is the addendum complete: N/A. Visualize and Verify Site with Patient/Guarantor: N/A. Relevant Radiology Images available: N/A. Pre-op teaching completed and patient verbalized understanding. The risks, benefits, and alternatives of sedation and/or procedure were discussed by physician. The patient agrees to continue. Procedure started. [facility] Clinical Fraility Score: 3: Managing Well. 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 Chest Pain Symptom Assessment: Atypical Angina. Cardiovascular Instability: No. Correct patient, site and procedure confirmed by cath team. PERRLA. Strong, equal hand gambling dealer bilaterally. Lungs clear x 5 lobes. IV Site on Arrival: 20 gauge in the left anticubital. IV Fluids: 0.9% NaCl at KVO. 0 mL infused prior to laborer stores. Pre Procedural Pulses: right dorsalis pedis was 2+. Pre Procedural Pulses: left dorsalis pedis was Doppled. Pre Procedural Pulses: bilateral posterior tibial was Doppled. Pre Procedural Pulses: right radial was 3+. Oxygen started at 2liters/min via nasal canula. Physician arrived. Equipment: 6F - Radial. Cardiac Cath Pack. ACIST Manifold Kit Model BT 2000. Heparinized Saline (2 units/mL), 1000 mL bag. right groin was prepped with chloroprep then draped in the usual sterile fashion. right radial was prepped with chloroprep then draped in the usual sterile fashion. Baseline sample Acquired. HR: 59 BPM. Physician scrubbed in. Immediate Pre-Procedure Time Out. Correct Patient: Yes; Correct Procedure: Yes; Correct Site: Yes; Correct Patient Position: Yes; Correct Supplies: Yes; Dried Flammable Prep: Yes; Blood Products Available: N/A;. Lidocaine 1% infiltrated to the right radial. Arterial access obtained. A 5 micronesian TIG catheter in over wire. Multiple views taken of left coronary artery. Catheter redirected to the RCA. Catheter removed over the glide wire. 6 micronesian JL 3.5 guide catheter was inserted over the wire. FFR guidewire was advanced through the guide catheter to lesion in the LMCA. An FFR value of 0.94 was obtained for a lesion located at LMCA. Fractional flow reserve measurements obtained. Wire out. Guide catheter out. A 5 micronesian Angled Pig catheter in over wire. Inventory is CRD 6FR JL 3.5 GUIDE. EDP Sample taken: LV 208/28,33; HR: 75 BPM; SpO2: 98%. Pullback taken: LV Off; AO Off; Mean: , Peak to Peak: , SEP: ; HR: 74 BPM; SpO2: 98%. Catheter removed over the exchange wire. Physician scrubbed out. A TR Band was successful obtaining hemostatsis at the Right Radial artery insertion site. TR band placed. Hemostasis obtained. Post Procedure: Pulses reassessed and unchanged. PERRLA. Strong, equal hand gambling dealer bilaterally. No VTE prophylaxis required. Medication's Wasted: Lidocaine 1% = 18 mL. Medication's Wasted: Nitro = 49.8 mg. Medication's Wasted: Heparin = 4000 units. Medication's Wasted: Other = versed 1 mg. Medication's Wasted: Other = adenosine 69 mg. Total IV fluids: 50 mL. Contrast type used: Omnipaque 300 mgI/mL, 500 mL bottle. Post-op diagnosis: moderate LMCA diseased, FFR normal. Complications: none. Estimated blood loss: 5mL-10mL. Procedure completed. Patient transferred by wheelchair to 1st floor. Vital chart was stopped. Access Site Site: Right Radial artery Sheath Size: 6 Fr Hemostasis Method: TR Band Hemostasis Success: Successful Procedure Medications Start: 9:37 AM Stop: 9:37 AM Medication: Benadryl Amount: 50 mg Route: I.V. Start: 9:38 AM Stop: 9:38 AM Medication: Versed Amount: 1 mg Route: I.V. Start: 9:39 AM Stop: 9:39 AM Medication: Fentanyl Amount: 50 mcg Route: I.V. Start: 9:46 AM Stop: 9:46 AM Medication: Nitrogylcerin Amount: 200 mcg Route: I.A. Start: 9:46 AM Stop: 9:46 AM Medication: Fentanyl Amount: 25 mcg Route: I.V. Start: 9:48 AM Stop: 9:48 AM Medication: Versed Amount: 1 mg Route: I.V. Start: 9:52 AM Stop: 9:52 AM Medication: Heparin Amount: 5000 units Route: I.V. Start: 10:00 AM Stop: 10:00 AM Medication: Heparin Amount: 2000 units Route: I.V. Start: 10:03 AM Stop: 10:03 AM Medication: Fentanyl Amount: 25 mcg Route: I.V. Start: 10:06 AM Stop: 10:06 AM Medication: Versed Amount: 1 mg Route: I.V. Start: 10:17 AM Stop: 10:17 AM Medication: Hydralazine Amount: 10 mg Route: I.V. I, the attending physician, have reviewed and verified all procedure medications. Yes, all medications given per verbal order History/Risk Factors Hypertension: Yes Dyslipidemia: No Peripheral Arterial Disease (PAD): No Myocardial Infarction (PR): No Obesity: No Renal Disease: No Tobacco Use: Current/Recent(w/in 1 year) Prior Interventions PCI: No CABG: No Valve Surgery: No Report Signatures Finalized by Marquis Strickland MD on 07/26/2020 05:54 PM
[2020-07-14] MEDS: nicotine 21 mg Patch 1 PATCH TRANSDERMA (09:16)
[2020-07-14] MEDS: sodium chloride 0.9% 1,000 ML 50 ML IV (09:16)
--- NOTE | 2020-07-14 09:37 | P.HP_ITS ---
Same Day Surgery H&P Indication for Procedure/HPI DATE OF PROCEDURE: July 14, 2020 CHIEF COMPLAINT/INDICATIONFOR SURGICAL PROCEDURE: Chest pain/abnormal stress test PREOP DIAGNOSIS: Chest pain/abnormal stress test PLANNED PROCEDRUE: Operation Date: 07/14/20 08:30 Proposed Procedures p left Cardiac Catheterization 74961 r07.89(Left) - Marquis Strickland M.D Possible percutaneous coronary intervention 69-year-old woman with past medical history of aortic insufficiency, smoking, obstructive sleep apnea, hypertension had been having worsening , exertional chest discomfort on the left side. She underwent stress test that was abnormal and plan for left heart cath with possible percutaneous coronary intervention ROS CONSTITUTIONAL: No fever chills weight loss or gain or night sweats. [] HEENT: Normocephalic, atraumatic.[] RESPIRATORY: No cough, sputum, hemoptysis or wheezing.[] CARDIOVASCULAR: Chest pain, shortness of breath, no PND, orthopnea, lower extremity edema, presyncope or syncope. [] GI: no nausea vomiting diarrhea. [] SALES DATA ANALYST: No numbness, tingling, weakness or loss of function in any part of the body. [] MUSCULOSKELETAL: No knee or joint pain or rashes. [] Medications/Allergies* Home Medications Medication Instructions Recorded Confirmed Type hydrocodone 10 mg-acetaminophen 1 tab PO 5XD PRN 02/22/19 07/14/20 History 325 mg tablet omeprazole 20 mg capsule,delayed 20 mg PO BID 02/22/19 07/14/20 History release pregabalin 150 mg capsule 150 mg PO QDAY 02/22/19 07/14/20 History baclofen 10 mg tablet 20 mg PO BID PRN tab 02/22/20 07/14/20 History amitriptyline 25 mg tablet 50 mg PO DAILY 05/29/20 07/14/20 History atorvastatin 20 mg tablet 20 mg PO DAILY 05/29/20 07/14/20 History famotidine 40 mg tablet 40 mg PO DAILY 05/29/20 07/14/20 History metoclopramide HCl 10 mg tablet 10 mg PO BID 05/29/20 07/14/20 History tiotropium-olodaterol 07/14/20 History Allergies/Adverse Reactions Allergy/AdvReac Type Severity Reaction Status Date / Time metronidazole [From Flagyl] Allergy Intermediate Sores on Verified 06/27/20 10:08 legs Current Medications: Generic Name Dose Route Start Last Admin Trade Name Nanda PRN Reason Stop Dose Admin Sodium Chloride 1,000 mls @ 50 mls/hr 07/14/20 07:30 07/14/20 09:16 Sodium Chloride 0.9% IV 07/15/20 03:29 50 mls/hr .Q20H ONE Administration Nicotine 1 patch 07/14/20 09:00 07/14/20 09:16 Nicotine 21 Mg Patch TRANSDERMA 1 patch DAILY PIERCE Administration Pertinent History/Comorbid Conditions* Medical History (Updated 06/12/20 @ 09:46 by Kevin Zapata MD) Aortic regurgitation Chronic pain COPD (chronic obstructive pulmonary disease) DDD (degenerative disc disease) High risk medication use Immunization counseling Inflammatory arthritis Osteoarthritis RLS (restless legs syndrome) Seronegative rheumatoid arthritis of both hands Sleep apnea Tobacco abuse Vulvar cancer Surgical History (Updated 02/23/19 @ 10:11 by Jveon Leyva MD) H/O cataract extraction H/O hemorrhoidectomy H/O: hysterectomy History of bilateral carpal tunnel release History of colon surgery History of lung surgery S/P carpal tunnel release S/P hysterectomy Family History (Updated 02/21/19 @ 09:13 by Teressa Traore LPN) Diabetes Mother Alcohol abuse Father Dementia Sister Heart disease Mother Hypertension Mother Stroke Mother Sister Hyperchloremia Mother Social History Smoking and tobacco status: current every day smoker cigarettes Packs smoked per day: 1.5 [ Other cigarette details: 1-2ppd 47yr hx ] Quit status (tobacco): has tried quititng Second hand smoke exposure: No Smoking risk assessment/counseling performed?: Yes Alcohol intake: former Lives independently: Yes Household members: none Marital status: Current occupational status: disabled Pets and animals: Yes History of recent travel: No Current gender identity: Female Brenda/Anabaptist: Shinto Pertinent Exam Findings alert, oriented x 3, clear to auscultation bilaterally and regular rate & rhythm Conscious Sedation Assessment PATIENT ASSESSED PRIOR TO SEDATION, WITH NO CHANGE NOTED: Yes AIRWAY EVAL/ANESTHESIA PLAN: normal airway, see other exam findings, ASA III, Monitored Anesthesia, Local Anesthesia, Risks, benefits & alternatives of sedation and/or procedure discussed and Patient agrees to continue as planned Recommendations Surgery/Procedure today (Left heart cath with possible percutaneous coronary intervention) Coding Level of Care Code Acute Electronic Resources Librarian for Tracy Medrano
--- NOTE | 2020-07-14 10:30 | PC.NURSE ---
from hot plate plywood press laborer Received pt from hot plate plywood press laborer. tr band intact. no hematoma, swelling or bleeding noted. radial pulse is palpable +3. instructed pt on no pushing, pulling, or lifting of right arm more than 5 lbs for 2-3 days. pt verbalizes understanding. VS taken.
[2020-07-14] MEDS: HYDROcodone-acetaminophen 10-325 mg Tablet 1 TAB PO ×2 (11:16→14:31)
[2020-07-14] MEDS: sodium chloride 0.9% 1,000 ML 100 ML IV (11:18)
--- NOTE | 2020-07-14 14:00 | PC.NURSE ---
Tr band off TR band off. no bleeding, hematoma, swelling or bleeding noted on right arm. VS taken.
== END 2020-07-14 17:01 | disposition home or self-care (01) ==
LOC: CSU 11:05
PROVIDERS: Admitting Provider Internal Medicine; PCP Internal Medicine; Visit Provider Internal Medicine
DX: I25.10 Atherosclerotic heart disease of native coronary artery without angina pectoris (principal); I35.1 Nonrheumatic aortic (valve) insufficiency; I50.9 Heart failure, unspecified; R94.39 Abnormal result of other cardiovascular function study; F17.210 Nicotine dependence, cigarettes, uncomplicated; I10 Essential (primary) hypertension; J44.9 Chronic obstructive pulmonary disease, unspecified; M19.90 Unspecified osteoarthritis, unspecified site; G47.30 Sleep apnea, unspecified; Z82.49 Family history of ischemic heart disease and other diseases of the circulatory system
CPT/HCPCS: 36415; 80048; 83880; 85025; 85610; 93452; 93571; C1769; C1887; C1894; G0378; J0153; J0360; J1200; J1644; J2250; J3010; J3490; J7030; Q9967

== ENCOUNTER → 2020-07-18 12:37 | Outpatient (BNVA) | payer MEDICARE, MEDICAID, SELFPAY | PROVIDERS: PCP Internal Medicine; Visit Provider Nurse Practitioner Family | DX: I50.9 Heart failure, unspecified (principal) | CPT/HCPCS: 80048; 83880 ==

== ENCOUNTER → 2020-07-23 08:48 | Outpatient (BNVA) | payer MEDICARE, MEDICAID, SELFPAY | PROVIDERS: PCP Internal Medicine; Visit Provider Nurse Practitioner Family | DX: I50.32 Chronic diastolic (congestive) heart failure (principal) | CPT/HCPCS: 80048 ==

== ENCOUNTER 2020-07-24 06:00 | Outpatient (RCR) | payer MEDICARE, MEDICAID, SELFPAY | END 2020-08-06 23:59 | disposition home or self-care (01) | LOC: TPT 06:00 | PROVIDERS: PCP Internal Medicine; Referring Provider Internal Medicine Pulmonary Disease; Visit Provider Internal Medicine Pulmonary Disease | DX: J44.9 Chronic obstructive pulmonary disease, unspecified (principal); R54 Age-related physical debility | CPT/HCPCS: 97110; 97161 ==

== ENCOUNTER 2020-08-07 06:00 | Outpatient (RCR) | payer MEDICARE, MEDICAID, SELFPAY | END 2020-09-06 23:59 | disposition home or self-care (01) | LOC: TPT 06:00 | PROVIDERS: PCP Internal Medicine; Referring Provider Internal Medicine Pulmonary Disease; Visit Provider Internal Medicine Pulmonary Disease | DX: J44.9 Chronic obstructive pulmonary disease, unspecified (principal) | CPT/HCPCS: 97110; 97164 ==

== ENCOUNTER → 2020-08-22 10:03 | Outpatient (BNVA) | payer MEDICARE, MEDICAID, SELFPAY | PROVIDERS: PCP Internal Medicine; Visit Provider Internal Medicine | DX: I50.32 Chronic diastolic (congestive) heart failure (principal) | CPT/HCPCS: 80048; 83880 ==

== ENCOUNTER 2020-11-18 13:09 | Outpatient (CLI) | payer MEDICARE, MEDICAID, SELFPAY ==
--- NOTE | 2020-11-18 13:31 | US_ITS ---
WS: [id number] ULTRASOUND SOFT TISSUES LEFT submandibular region. HISTORY: LYMPHADENOPATHY-LEFT SUBMANDIBULAR COMPARISON: None available. TECHNIQUE: 2-D and color Doppler imaging is submitted. Ultrasound directed to the area of interest. There are several benign lymph nodes along the LEFT subm andibular region. No enlarged lymph nodes or adenopathy. US/US soft tissue head neck [id number] IMPRESSION: Normal-appearing lymph node along the LEFT submandibular gland.
== END 2020-11-18 13:10 | disposition home or self-care (01) ==
LOC: RAD 13:14
PROVIDERS: PCP Internal Medicine; Visit Provider Internal Medicine
DX: R59.1 Generalized enlarged lymph nodes (principal)
CPT/HCPCS: 76536

== ENCOUNTER 2021-01-13 08:24 | Outpatient (CLI) | payer MEDICARE, MEDICAID, SELFPAY ==
--- NOTE | 2021-01-13 08:40 | CT_ITS ---
WS: [id number] LDCT LUNG CANCER SCREENING HISTORY: NICOTINE DEPENDENCE TECHNIQUE: Axial imaging performed from the apices to 1 cm below the costophrenic angles. Coronal and sagittal reformats are submitted with axial MIP series. All CT scans at [facility] use at least one of these dose optimization techniques: automated exposure control; mA and/or kV adjustment per patient size (includes targeted exams where dose is matched to clinical indication); or iterativ e reconstruction. DLP: 56.17 mGy.cm DIvol: 1.58 mGy COMPARISON: 09/12/2019 Diagnostic quality: Satisfactory Lung Nodules: There are several bilateral calcified pulmonary nodules. Some these nodules are calcifi ed and partially calcified. No new noncalcified pulmonary nodule or mass. No pneumonia. Lungs: Hyperexpanded lungs from emphysema. Heart: Mildly enlarged heart. No pericardial effusion. Stable calcified coronary artery atheroscleros is. Other findings: Mediastinal and hilar lymph nodes are partially calcified and ectatic identified. Lar gest lymph nodes measure up to 9 mm in diameter. Small hiatal hernia. LEFT adrenal gland stable adeno ma 2.0 cm. Poorly visualized LEFT hepatic cyst. CT/CT lung screening [id number] IMPRESSION: LUNG-RADS: 2-Benign Appearance or Behavior FOLLOW UP: 12 Month: Continue annual screening with LDCT OTHER FINDINGS (S MODIFIER): None.
== END 2021-01-13 08:25 | disposition home or self-care (01) ==
LOC: RAD 08:27
PROVIDERS: PCP Internal Medicine; Visit Provider Internal Medicine
DX: Z12.2 Encounter for screening for malignant neoplasm of respiratory organs (principal); F17.218 Nicotine dependence, cigarettes, with other nicotine-induced disorders
CPT/HCPCS: 71271

== ENCOUNTER 2021-01-22 11:12 | Outpatient (CLI) | payer MEDICARE, MEDICAID, SELFPAY ==
--- NOTE | 2021-01-22 11:31 | MM_ITS ---
WS: [id number] Bilateral screening digital mammogram, 01/22/2021 Clinical Data: SCREENING Comparison: 11/28/2019, 10/04/2018, 06/07/2017, 01/08/2016, 12/11/2014, 10/18/2013, 06/27/2012, 06/28/2011, , 07/31/2008. Findings: The breast parenchymal pattern shows upper glandular tissue No spiculated masses or clustered calcifi cations are seen. There are no secondary signs of carcinoma. MM/[place] [id number] Impression: 1. Negative bilateral mammogram unchanged. 2. Recommend annual screening mammograms. BIRADS: 1-Negative FOLLOW UP: 1 Year Follow-up The CAD sample checker was used.
== END 2021-01-22 11:13 | disposition home or self-care (01) ==
LOC: RADSHAW 11:21
PROVIDERS: PCP Internal Medicine; Visit Provider Internal Medicine
DX: Z12.31 Encounter for screening mammogram for malignant neoplasm of breast (principal)
CPT/HCPCS: 77067

== ENCOUNTER 2021-02-10 08:22 | Outpatient (CLI) | payer MEDICARE, MEDICAID, SELFPAY ==
[2021-02-10 08:50] LABS: Basophils # 0.1 10^3/uL (0.0-0.1); Basophils % 0.7 %; Eosinophils # 0.1 10^3/uL (0.0-0.8); Eosinophils % 0.7 %; Hematocrit 37.3 % (37.0-47.0); Hemoglobin 11.9 g/dL (11.5-15.3); Lymphocytes # 1.7 10^3/uL (0.8-4.8); Lymphocytes % 22.6 %; Mean Corpuscular HGB Conc 31.9 g/dL (30.0-36.0); Mean Corpuscular Hemoglobin 32.8 pg (28.0-34.0); Mean Corpuscular Volume 102.8 fl (81-99); Monocytes # 0.5 10^3/uL (0.2-0.9); Monocytes % 7.1 %; Neutrophils # 5.13 10^3/uL (1.8-7.7); Neutrophils % 68.8 %; Nucleated Red Blood Cells % 0 %; Platelet Count 247 10^3/cmm (130-400); Red Blood Count 3.63 10^6/uL (4.1-5.3); Red Cell Distribution Width 14.2 % (12.1-15.1); White Blood Count 7.5 10^3/uL (4.0-10.0)
[2021-02-10 09:07] LABS: Alanine Aminotransferase 13 U/L (0-33); Albumin Level 4.2 g/dL (3.5-5.2); Alkaline Phosphatase 79 IU/L (35-105); Aspartate Amino Transferase 18 U/L (0-32); C Reactive Protein 5.3 mg/L (0.0-4.9); Globulin 2.6 g/dL (1.3-4.6); Total Bilirubin 0.2 mg/dL (0.15-1.2); Total Protein 6.8 g/dL (6.6-8.7)
== END 2021-02-10 08:23 | disposition home or self-care (01) ==
LOC: LAB 08:28
PROVIDERS: PCP Internal Medicine; Visit Provider Internal Medicine Rheumatology
DX: M06.041 Rheumatoid arthritis without rheumatoid factor, right hand (principal); M06.042 Rheumatoid arthritis without rheumatoid factor, left hand; Z79.899 Other long term (current) drug therapy
CPT/HCPCS: 36415; 80076; 82565; 85025; 86140

== ENCOUNTER → 2021-02-18 15:09 | Outpatient (BNVA) | payer MEDICARE, MEDICAID, SELFPAY | PROVIDERS: PCP Internal Medicine; Visit Provider Internal Medicine Rheumatology | DX: M06.041 Rheumatoid arthritis without rheumatoid factor, right hand (principal); M06.042 Rheumatoid arthritis without rheumatoid factor, left hand; Z79.899 Other long term (current) drug therapy; Z71.89 Other specified counseling; M19.041 Primary osteoarthritis, right hand; M19.042 Primary osteoarthritis, left hand; R60.0 Localized edema; L60.8 Other nail disorders; F17.210 Nicotine dependence, cigarettes, uncomplicated | CPT/HCPCS: 99214 ==

== ENCOUNTER 2021-04-24 12:44 | Outpatient (CLI) | payer MEDICARE, MEDICAID, SELFPAY ==
--- NOTE | 2021-04-24 12:52 | MR_ITS ---
WS: [id number] MRI CERVICAL SPINE NONCONTRAST TECHNIQUE: Sagittal T1, T2 and STIR imaging. Axial T2, gradient, and fiesta imaging. CLINICAL INFORMATION: STENOSIS COMPARISON: MRI FINDINGS: Straightening of the normal cervical lordosis. Slight anterolisthesis C4 on C5. Slight retrolisthesis C5 on C6. Slight anterolisthesis C6 on C7. Disc osteophyte complexes worse at C4-C5 and C5-C6. Cord signal is normal. C2-C3: Mild LEFT bony foraminal narrowing. Moderate LEFT facet arthropathy. Spinal canal and RIGHT fo ramen are patent. C3-C4: Mild disc osteophytic ridging. Moderate LEFT and no significant RIGHT bony foraminal narrowing . Mild facet arthropathy. Spinal canal is patent. C4-C5: Disc osteophyte complex with endplate ridging. Slight anterolisthesis C4 on C5. Moderate LEFT bony foraminal narrowing. Mild RIGHT bony foraminal narrowing. Moderate facet arthropathy. C5-C6: Disc osteophyte complex with endplate ridging. Mild central canal stenosis. Severe LEFT and mo derate RIGHT bony foraminal narrowing. Mild facet arthropathy. C6-C7: Disc osteophyte complex with endplate ridging. Mild LEFT and no RIGHT foraminal narrowing. Spi nal canal is patent. Mild facet arthropathy. C7-T1: Disc osteophytic ridging. Moderate LEFT and mild RIGHT bony foraminal narrowing. Spinal canal is patent. Visualized brain stem structures: Normal. Prevertebral soft tissues: Normal. Degenerative disc disease at C4-C5 and C5-C6 is progressed slightly compared to previous. Slight ante rolisthesis C6 on C7 appears progressed. Otherwise no significant overall changes compared to 2017. MR/MR cervical spin wo con* [id number] IMPRESSION: 1. Straightening of the normal cervical lordosis. Slight anterolisthesis C4 on C5 and slight retrolisthesis C5 on C6 unchanged since . Slight anterol isthesis C6 on C7 appears slightly progressed. 2. Mild central canal stenosis C4-C5 and C5-C6 due to disc osteophyte complex is unchanged. 3. Moderate LEFT C4-C5 and severe LEFT C5-C6 bony foraminal narrowing worse at C5-C6 unchanged from previous. 4. Otherwise mild to moderate bony foraminal narrowing at LEFT C3-C4, RIGHT C5 -C6, LEFT C6-C7, and LEFT C7-C1. 5. Moderate facet arthropathy more prominent at LEFT C2-C3 and RIGHT C4-C5
== END 2021-04-24 12:45 | disposition home or self-care (01) ==
LOC: RAD 12:48
PROVIDERS: PCP Internal Medicine; Visit Provider General Practice
DX: M51.36 Other intervertebral disc degeneration, lumbar region (principal); M50.30 Other cervical disc degeneration, unspecified cervical region; M48.02 Spinal stenosis, cervical region; M25.78 Osteophyte, vertebrae; M47.812 Spondylosis without myelopathy or radiculopathy, cervical region
CPT/HCPCS: 72141; 72148

== ENCOUNTER 2021-05-13 11:17 | Outpatient (CLI) | payer MEDICARE, MEDICAID, SELFPAY ==
--- NOTE | 2021-05-13 11:28 | MR_ITS ---
WS: [id number] MRI LUMBAR SPINE NONCONTRAST HISTORY: LUMBAR DDD COMPARISON: 11/26/2015 TECHNIQUE: Sagittal and axial multisequence imaging is submitted. Marked increase in thoracic kyphosis. Moderate LEFT rotoscoliosis of the lumbar spine. Similar to the prior study. Disc spaces are desiccated and narrowed throughout the lumbar spine, most significant at L4-5 and L5- S1 similar to the prior study. No acute fracture. No marrow edema. L1, L2 and L3 retrolisthesis by 3 mm. Conus terminates normally at L1-2 disc level. L1-L2: Diffuse disc bulging encroaching upon the anterior thecal sac. Disc encroaches upon and displa jalil the traversing L2 nerve roots with mild central and RIGHT foraminal stenosis. Similar to the prio r study. L2-L3: Severe annular disc bulging with osteophytic ridging. Disc contacts the ventral thecal sac. Th ere is disc contacting the RIGHT L2 and L3 nerve roots and the L3 nerve root on the LEFT. Mild centra l, bilateral subarticular recess and RIGHT foraminal stenosis. Mild increase in stenosis since the pr ior study. L3-L4: Moderate diffuse annular disc bulging. Ligamentum flavum and facet arthritis. Thecal sac is be ing deformed and flattened by combination of factors. There is a more focal RIGHT proximal foraminal subarticular disc protrusion. There is significant encroachment upon the RIGHT subarticular recess an d proximal foramen. Mild central stenosis with moderate RIGHT subarticular and foraminal stenosis. Th e disc protrusion and stenosis on the RIGHT are new. Marked RIGHT facet joint arthritis. L4-L5: Diffuse annular disc bulging and osteophytic ridging. Mild encroachment upon the subarticular recesses and foramina. L5-S1: Mild annular disc bulging with disc osteophyte extension into the LEFT foramen. Moderate to se terrance LEFT foraminal stenosis with contact on the LEFT S1 and ascending LEFT L5 nerve root. Disc sligh tly contacts the RIGHT S1 nerve root. Marrow signal within the pelvis and sacrum are similar to the prior examination. MR/MR lumbar spine wo con* [id number] IMPRESSION: 1. Mild progression of degenerative disc disease and facet joint and disc dise ase since 2015. 2. LEFT lumbar rotary scoliosis. 3. Mild central and RIGHT foraminal stenosis at L1-2. 4. Mild central, bilateral subarticular recess and RIGHT foraminal stenosis at L2-3 disc contacts the L3 nerve roots and the RIGHT L2 nerve root. 5. Moderate RIGHT subarticular recess and foraminal stenosis L3-4 with a disc protrusion and facet joint encroachment. Mild central stenosis at L3-4. 6. Mild encroachment upon the subarticular recesses and foramina at L4-5. 7. Moderate to severe LEFT foraminal stenosis with disc an ossified contact on the LEFT L5 and S1 nerve roots. Very minimal contact on the RIGHT S1 nerve thee t.
== END 2021-05-13 11:18 | disposition home or self-care (01) ==
PROVIDERS: PCP Internal Medicine; Visit Provider General Practice
DX: M51.36 Other intervertebral disc degeneration, lumbar region (principal); M41.86 Other forms of scoliosis, lumbar region; M48.061 Spinal stenosis, lumbar region without neurogenic claudication; M51.26 Other intervertebral disc displacement, lumbar region
CPT/HCPCS: 72148

== ENCOUNTER → 2021-06-10 14:29 | Outpatient (BNVA) | payer MEDICARE, MEDICAID, SELFPAY | PROVIDERS: PCP Internal Medicine; Visit Provider Internal Medicine Rheumatology | DX: M06.041 Rheumatoid arthritis without rheumatoid factor, right hand (principal); M06.042 Rheumatoid arthritis without rheumatoid factor, left hand; Z79.899 Other long term (current) drug therapy; Z71.89 Other specified counseling | CPT/HCPCS: 36415; 80076; 82565; 85025; 86140; 99214 ==

== ENCOUNTER → 2021-06-15 15:10 | Outpatient (BNVA) | payer MEDICARE, MEDICAID, SELFPAY | PROVIDERS: PCP Internal Medicine; Visit Provider Internal Medicine | DX: I50.32 Chronic diastolic (congestive) heart failure (principal); I49.9 Cardiac arrhythmia, unspecified; G47.30 Sleep apnea, unspecified; I35.1 Nonrheumatic aortic (valve) insufficiency; Z87.891 Personal history of nicotine dependence; R07.9 Chest pain, unspecified | CPT/HCPCS: 36415; 80048; 83880; 99214 ==

== ENCOUNTER → 2021-07-31 09:35 | Outpatient (BNVA) | payer MEDICARE, MEDICAID, SELFPAY | PROVIDERS: PCP Internal Medicine; Visit Provider Internal Medicine Pulmonary Disease | DX: J43.2 Centrilobular emphysema (principal); Z71.6 Tobacco abuse counseling; M19.90 Unspecified osteoarthritis, unspecified site; Z71.89 Other specified counseling; I35.1 Nonrheumatic aortic (valve) insufficiency; F17.210 Nicotine dependence, cigarettes, uncomplicated; K21.9 Gastro-esophageal reflux disease without esophagitis | CPT/HCPCS: 99214 ==

== ENCOUNTER 2021-08-03 09:20 | Day surgery (SDC) | payer MEDICARE, MEDICAID, SELFPAY ==
[2021-07-30 11:43] VITALS: BMI 31.3
--- NOTE | 2021-08-03 07:41 | W.PM.OPSFHP ---
Same Day Surgery H&P Indication for Procedure/HPI DATE OF PROCEDURE: August 03, 2021 CHIEF COMPLAINT/INDICATIONFOR SURGICAL PROCEDURE: Dysphagia screening PREOP DIAGNOSIS: Chest pain/abnormal stress test PLANNED PROCEDURE: Operation Date: 08/03/21 10:30 Proposed Procedures p EGD and colonoscopy [id number],K21.9,Z12.11(Not Applicable) - Michelet Woods MD s Colonoscopy(Not Applicable) - Michelet Woods MD Medications/Allergies* Home Medications Medication Instructions Recorded Confirmed Type baclofen 10 mg tablet 20 mg PO BID PRN tab 02/22/20 07/31/21 History hydrocodone 10 mg-acetaminophen 1 tab PO Q6H PRN 12/29/20 07/31/21 History 325 mg tablet ferrous sulfate [Iron (ferrous 65 mg PO PRN PRN 07/02/21 07/31/21 History sulfate)] magnesium oxide 400 mg PO DAILY 07/02/21 07/31/21 History pregabalin 100 mg capsule 100 mg PO BID 07/02/21 07/31/21 History Allergies/Adverse Reactions Allergy/AdvReac Type Severity Reaction Status Date / Time metronidazole [From Flagyl] Allergy Intermediate Sores on Verified 07/31/21 09:38 legs Pertinent History/Comorbid Conditions* Medical History (Updated 07/31/21 @ 11:13 by Sean Durand MD) Anxiety about health Aortic regurgitation mild to moderate Atherosclerosis of coronary artery Chronic pain pain clinic in [facility] COPD (chronic obstructive pulmonary disease) DDD (degenerative disc disease) Encounter for smoking cessation counseling GERD (gastroesophageal reflux disease) High risk medication use Hypertension Inflammatory arthritis Osteoarthritis Osteoarthritis of both hands RLS (restless legs syndrome) Screen for colon cancer Seronegative rheumatoid arthritis of both hands Sleep apnea She chose not to treat with CPAP Tobacco abuse 2 ppd all of her adult life, 45 + years. Vulvar cancer Surgical History (Updated 07/31/21 @ 11:12 by Sean Durand MD) H/O cataract extraction H/O hemorrhoidectomy H/O: hysterectomy Total Hysterectomy in 1970 History of appendectomy History of bilateral carpal tunnel release History of colon surgery History of hernia repair History of lung surgery S/P carpal tunnel release S/P hysterectomy Family History (Updated 02/21/19 @ 09:13 by Teressa Traore RN) Diabetes Mother Alcohol abuse Father Dementia Sister Heart disease Mother Hypertension Mother Stroke Mother Sister Hyperchloremia Mother Social History Smoking and tobacco status: current every day smoker cigarettes Packs smoked per day: 2.5 Years cigarettes smoked: 60 [ Other cigarette details: 3ppd previously ] Quit status (tobacco): has tried quititng Second hand smoke exposure: No Smoking risk assessment/counseling performed?: Yes Alcohol intake: former Lives independently: Yes Household members: none Marital status: Current occupational status: disabled Pets and animals: Yes History of recent travel: No Current gender identity: Female Brenda/Confucianism: Yazdanism Pertinent Exam Findings alert, oriented x 3, clear to auscultation bilaterally, regular rate & rhythm, operative site marked and procedure specific exam findings Recommendations Surgery/Procedure today Coding Level of Care Code Acute Statistical Programmer for Tracy Medrano
[2021-08-03 10:08] VITALS: BP 139/69; PULSE 64; RESP 18; TEMP 36.1; O2SAT 96
[2021-08-03] MEDS: sodium chloride 0.9% 1,000 ML 30 ML IV (10:17)
--- NOTE | 2021-08-03 10:30 | ANES.PREANE2 ---
Pre-Anesthetic Assessment Height/Weight: Height 1.57 m Weight 78.925 kg Temp Pulse Resp BP Pulse Ox 97 F L 64 18 139/69 96 08/03/21 10:08 08/03/21 10:08 08/03/21 10:08 08/03/21 10:08 08/03/21 10:08 Preop Diagnosis: Screen, and GERD Operation Date: 08/03/21 10:30 Proposed Procedures p EGD and colonoscopy [id number],K21.9,Z12.11(Not Applicable) - Michelet Woods MD s Colonoscopy(Not Applicable) - Michelet Woods MD Familial anesthetic complications: None Was Beta Froilan taken within 24 hours: Yes Was Clonidine taken within 24 hours: N/A Last intake: Intake Last Liquid Date 08/03/21 Last Liquid Time 01:00 Last Solid Date 08/02/21 Last Solid Time 18:00 Social No alcohol and No tobacco Exam alert, oriented x 3, clear to auscultation bilaterally and regular rate & rhythm caorse breath sounds/bl Airway Mallampati: Class III Dentition: false Pulmonary Sleep Apnea CV/HEM Coronary Artery Disease, Congestive Heart Failure and Hypertension cath 07/28 - mild to mod LAD disease GI Gastroesophageal Reflux Disease [facility] Rheumatoid Arthritis Anesthetic Plan ASA status: 3 Risk of > 500 ml blood loss (7ml/kg in children): No Medications/Allergies Home Medications Medication Instructions Recorded Confirmed Last Taken Type baclofen 10 mg tablet 20 mg PO BID PRN tab 02/22/20 07/31/21 07/29/21 History potassium chloride 20 mEq 20 meq PO DAILY #90 tab 07/21/20 07/31/21 07/30/21 Rx tablet,extended release(part/cryst) (Klor-Con M) levalbuterol tartrate 45 2 inh INHALATION Q6H PRN #15 g 10/23/20 07/31/21 07/30/21 Rx mcg/actuation aerosol inhaler (Xopenex HFA) hydrocodone 10 mg-acetaminophen 1 tab PO Q6H PRN 12/29/20 07/31/21 07/30/21 History 325 mg tablet prednisone 10 mg tablet See Rx Instructions PO .COMPLEX 02/18/21 07/30/21 Unknown Rx PRN #60 tab lisinopril 40 mg tablet 40 mg PO DAILY #90 tab 05/27/21 07/31/21 07/30/21 Rx sulfasalazine 500 mg tablet See Rx Instructions .ROUTE 06/10/21 07/31/21 07/30/21 Rx .COMPLEX #120 tab bumetanide 1 mg tablet 2 mg PO BID #360 tab 06/15/21 07/31/21 07/30/21 Rx ferrous sulfate [Iron (ferrous 65 mg PO PRN PRN 07/02/21 07/31/21 07/08/21 History sulfate)] magnesium oxide 400 mg PO DAILY 07/02/21 07/31/21 07/30/21 History pregabalin 100 mg capsule 100 mg PO BID 07/02/21 07/31/21 07/29/21 History albuterol sulfate 2.5 mg (3 mL) INHALATION Q6H PRN 07/16/21 07/31/21 08/03/21 09:00 Rx #90 ml amitriptyline 50 mg tablet See Rx Instructions PO .hs PRN #60 07/16/21 07/31/21 07/29/21 Rx tab bupropion HCl 100 mg tablet,12 hr 100 mg PO QAM #30 tab 07/16/21 07/31/21 07/30/21 Rx sustained-release nystatin 100,000 unit/gram topical 1 applic TOPICAL BID #60 g 07/16/21 07/31/21 07/27/21 Rx powder spironolactone 25 mg tablet 25 mg PO QAM #30 tab 07/16/21 07/31/21 07/30/21 Rx metoprolol tartrate 50 mg tablet 50 mg PO BID #180 tab 07/22/21 07/31/21 07/30/21 Rx atorvastatin 20 mg tablet See Rx Instructions .ROUTE 07/28/21 07/31/21 07/29/21 Rx .COMPLEX #30 tablet omeprazole 40 mg capsule,delayed 40 mg PO BID #60 cap 07/28/21 07/31/21 07/30/21 Rx release guaifenesin 600 mg tablet, 600 mg PO Q12H PRN #60 tab 07/31/21 08/03/21 Unknown Rx extended release 12 hr hydroxychloroquine 200 mg tablet See Rx Instructions .ROUTE .COMPLEX 08/03/21 07/30/21 07/30/21 History (Plaquenil) Allergies Allergy/AdvReac Type Severity Reaction Status Date / Time metronidazole [From Flagyl] Allergy Intermediate Sores on Verified 07/31/21 09:38 legs Current Medications Generic Name Dose Route Start Last Admin Trade Name Nanda PRN Reason Stop Dose Admin Sodium Chloride 1,000 mls @ 30 mls/hr 08/03/21 10:30 08/03/21 10:17 Sodium Chloride 0.9% IV 30 mls/hr .Q24H PIERCE Administration PFSH Anesthesia Medical History (Updated 07/31/21 @ 11:13 by Sean Durand MD) Anxiety about health Aortic regurgitation mild to moderate Atherosclerosis of coronary artery Chronic pain pain clinic in [facility] COPD (chronic obstructive pulmonary disease) DDD (degenerative disc disease) Encounter for smoking cessation counseling GERD (gastroesophageal reflux disease) High risk medication use Hypertension Inflammatory arthritis Osteoarthritis Osteoarthritis of both hands RLS (restless legs syndrome) Screen for colon cancer Seronegative rheumatoid arthritis of both hands Sleep apnea She chose not to treat with CPAP Tobacco abuse 2 ppd all of her adult life, 45 + years. Vulvar cancer Surgical History (Updated 07/31/21 @ 11:12 by Sean Durand MD) H/O cataract extraction H/O hemorrhoidectomy H/O: hysterectomy Total Hysterectomy in 1969 History of appendectomy History of bilateral carpal tunnel release History of colon surgery History of hernia repair History of lung surgery S/P carpal tunnel release S/P hysterectomy Family History Mother Diabetes Heart disease Hypertension Hyperchloremia Stroke Father Alcohol abuse Sister Dementia Stroke Social History Smoking and tobacco status: current every day smoker cigarettes Packs smoked per day: 2.5 Years cigarettes smoked: 60 [ Other cigarette details: 3ppd previously ] Quit status (tobacco): has tried quititng Second hand smoke exposure: No Smoking risk assessment/counseling performed?: Yes Alcohol intake: former Lives independently: Yes Household members: none Marital status: Current occupational status: disabled Pets and animals: Yes History of recent travel: No Current gender identity: Female Brenda/Congregational: Yarsanism Data Anesthesia Cardiac Studies: Echocardiogram Ultrasound 02/21/20 Sestamibi Stress Test (Cardiology) 05/12/20
--- NOTE | 2021-08-03 11:49 | ANE.PACU2 ---
Inpatient post-anesthesia follow up: Airway intact: Yes Vital signs: Temperature 97 F Pulse Rate 64 Respiratory Rate 18 Blood Pressure 139/69 Pulse Oximetry 96 Oxygen Delivery Me thod Room Air Oxygen Flow Rate Fraction of Inspir ed Oxygen Hydration adequate: Yes Nausea and vomiting: No Pain level: 1 Mental status: Baseline
[2021-08-03 11:51] VITALS: BP 164/70; PULSE 66; RESP 18; O2SAT 95
[2021-08-03 11:52] VITALS: BP 171/77; PULSE 67; RESP 16; TEMP 36.1; O2SAT 95
--- NOTE | 2021-08-03 11:55 | PC.NURSE ---
dentures return to patient and she placed in her mouth
[2021-08-03 12:01] VITALS: BP 179/63; PULSE 68; RESP 18; O2SAT 95
[2021-08-04 12:48] LABS: H. Pylori / CLO Test Negative
== END 2021-08-03 12:20 | disposition home or self-care (01) ==
PROVIDERS: PCP Family Medicine Adult Medicine; Visit Provider Internal Medicine
PROC: 0DJ08ZZ Inspection of Upper Intestinal Tract, Via Natural or Artificial Opening Endoscopic (ICD-10-PCS; CPT 43235; principal; 2021-08-03 10:30)
PROC: 0DJD8ZZ Inspection of Lower Intestinal Tract, Via Natural or Artificial Opening Endoscopic (ICD-10-PCS; CPT 45378; 2021-08-03 10:30)
DX: Z12.11 Encounter for screening for malignant neoplasm of colon (principal); K21.9 Gastro-esophageal reflux disease without esophagitis; I25.10 Atherosclerotic heart disease of native coronary artery without angina pectoris; G47.30 Sleep apnea, unspecified; I11.0 Hypertensive heart disease with heart failure; I50.9 Heart failure, unspecified; M06.9 Rheumatoid arthritis, unspecified; I10 Essential (primary) hypertension
CPT/HCPCS: 43239; 87077; G0121; J2704; J7030

== ENCOUNTER 2021-08-31 09:31 | Inpatient (IN) | payer MEDICARE, MEDICAID, SELFPAY ==
[2021-08-31] VITALS (21 sets, daily range): BP systolic 92–183; BP diastolic 51–99; PULSE 87–119; RESP 14–24; TEMP 38.1; O2SAT 83–98; BMI 34.7
--- NOTE | 2021-08-31 09:33 | CT_ITS ---
WS: [id number] CT ABDOMEN AND PELVIS NONCONTRAST HISTORY: Abdominal pain TECHNIQUE: Imaging performed through the abdomen and pelvis. Coronal and sagittal reformats are submi tted. All CT scans at [facility] use at least one of these dose optimization techniques: auto mated exposure control; mA and/or kV adjustment per patient size (includes targeted exams where dose is matched to clinical indication); or iterative reconstruction. DLP: 1172.40 mGy.cm COMPARISON: 07/14/2018 and 08/04/2014 Lower thorax: Lung bases are clear. Visualized heart is normal. No hiatal hernia. Liver: Normal size liver. 18 mm cyst in the LEFT lobe. There is significant artifact through the abdo men from the patient's arms. There is also breathing motion artifact. Gallbladder: Nondistended. Limited by motion. Pancreas: Normal size and attenuation. Normal pancreatic duct. No pancreatitis or mass. Spleen: Normal. Adrenal glands: Bilateral adrenal low-attenuation masses. The RIGHT adrenal mass measures 15 mm in th e LEFT 19 mm. Consistent with adenomas. Right kidney: Normal size kidney with no mass or hydronephrosis. Left kidney: Normal size kidney with no mass or hydronephrosis. Aorta: Extensive atherosclerotic plaque. No aneurysm. Calcification continues to partially obstruct t he proximal celiac axis and SMA. No free fluid, intraperitoneal air or significant lymphadenopathy. GI tract: Nonobstructed stomach. Normal small bowel caliber. No evidence for appendicitis. No colonic obstruction. Abdominal wall: Negative. No hernia. Pelvis: No free fluid or adenopathy. Nondistended bladder. Osseous structures: LEFT curvature lumbar spine. Degenerative disc disease and facet arthritis. CT/CT abdomen pelvis wo con [id number] IMPRESSION: 1. No acute abdominal or pelvic abnormalities are identified. 2. Stable LEFT hepatic cyst and bilateral adrenal adenomas. 3. No GI tract obstruction. 4. Moderate atherosclerotic plaque abdominal aorta.
--- NOTE | 2021-08-31 09:56 | CT_ITS ---
WS: [id number] CT HEAD NONCONTRAST HISTORY: AMS TECHNIQUE: Contiguous axial imaging performed through the brain in 2.5 mm imaging. Bone and soft tiss ue windows. Sagittal and coronal reformats reviewed. All CT scans at [facility] use at least one of these dose optimization techniques: automated exposure control; mA and/or kV adjustment per pa tient size (includes targeted exams where dose is matched to clinical indication); or iterative recon struction. DLP: 2212.68 mGy.cm COMPARISON: None available. No acute intracranial hemorrhage, midline shift or mass effect. Mild atrophy and small vessel ischemic disease. Prior lacunar infarct in the RIGHT basal ganglia. Ventricles: Normal size with no hydrocephalus. No inferior displacement of cerebellar tonsils. Paranasal sinuses: Mild mucoperiosteal thickening in the LEFT maxillary sinus. Mastoid air cells: Well pneumatized. Calvarium and scalp: Skull is intact with no soft tissue edema or swelling. CT/CT head wo con* [id number] IMPRESSION: 1. No acute intracranial hemorrhage or edema. 2. Mild atrophy and small vessel ischemic disease. 3. Remote lacunar infarct RIGHT basal ganglia.
--- NOTE | 2021-08-31 09:56 | XR_ITS ---
WS: [id number] Exam: XR chest 1V portable [id number] Date/Time of Exam: 08/31/2021 10:01 AM Reason For Exam: hypoxia Comparison 03/27/2019. The lungs are fully expanded and clear. Soft tissue density along the left heart border may represent prominent fat pad. This is unchanged since multiple prior exams. No pleural effusion or pneumothorax . Normal cardiomediastinal silhouette. Bony structures are intact. XR/XR chest 1V portable [id number] IMPRESSION: 1. No acute cardiopulmonary finding. No change.
[2021-08-31 10:08] LABS: ABG PCO2 42.7 mmHg (35-45); ABG PH Result 7.44 (7.35-7.45); Alveolar-Arterial Oxygen Gradi 5.7 mmHg (5-10); Base Excess ABG 3.9 mmol/L (-2.0-2.0); Blood Gas Allen Test Pos; Blood Gas Operator Identificat MONRO; Blood Gas Sample Site Radial, right; Blood Gas Sample Type Arterial; Carboxyhemoglobin 0.6 %THgb (0.4-20.1); HCO3 ABG 28.6 mmol/L (22-26); HGB O2 Sat 96.3 % (95-100); Ionized Calcium Level - ABG 1.2 mmol/L (1.1-1.4); Methemoglobin 1.4 % (0.4-1.5); Oxygen Device NC; Oxygen Saturation ABG 98.3; Potassium Level - ABG 3.5 mmol/L (3.5-5.0); Total Hemoglobin 10.4 g/dL (12-16)
[2021-08-31 10:42] LABS: Basophils % 0.4 %; Eosinophils % 0.5 %; Hemoglobin 10.1 g/dL (11.5-15.3); Lymphocytes # 1.5 10^3/uL (0.8-4.8); Lymphocytes % 20.4 %; Mean Corpuscular HGB Conc 31.6 g/dL (30.0-36.0); Mean Corpuscular Hemoglobin 31.1 pg (28.0-34.0); Mean Corpuscular Volume 98.5 fl (81-99); Mean Platelet Volume 10.3 fL (7.4-10.4); Monocytes # 0.6 10^3/uL (0.2-0.9); Monocytes % 8.4 %; Neutrophils # 5.19 10^3/uL (1.8-7.7); Nucleated Red Blood Cells % 0 %; Platelet Count 240 10^3/cmm (130-400); Red Blood Count 3.25 10^6/uL (4.1-5.3); Red Cell Distribution Width 15.5 % (12.1-15.1); White Blood Count 7.4 10^3/uL (4.0-10.0)
--- NOTE | 2021-08-31 11:08 | PC.PHAR ---
PT UNABLE TO VERIFY MEDICATIONS DUE TO AMS- PT SON NOT SURE OF THE FACILITY THAT PROVIDES HOME HEALTH- MEDICATIONS VERIFIED BY CALLING PHARMACY AND EXTERNAL MED LIST.
[2021-08-31 11:11] LABS: Alanine Aminotransferase 15 U/L (0-33); Albumin Level 4.1 g/dL (3.5-5.2); Alkaline Phosphatase 82 IU/L (35-105); Anion Gap 15.6 (5-19); Aspartate Amino Transferase 30 U/L (0-32); Blood Urea Nitrogen 23 mg/dL (8-23); Calcium 9.2 mg/dL (8.5-10.5); Carbon Dioxide 26 mmol/L (22-29); Chloride 107 mmol/L (98-107); Creatinine Clr Calc Pharmacy 64.7573; Globulin 2.5 g/dL (1.3-4.6); Glucose 116 mg/dL (65-115); Lipase 22 U/L (13-60); Magnesium 2.3 mg/dL (1.7-2.3); Osmolality Calculated 305 mOsm/kg (285-295); Potassium 3.6 mmol/L (3.5-5.1); Sodium 145 mmol/L (136-145); Total Bilirubin 0.3 mg/dL (0.15-1.2); Total Protein 6.6 g/dL (6.6-8.7)
[2021-08-31 11:46] LABS: INR 0.97 (0.8-1.2)
--- NOTE | 2021-08-31 11:46 | ED_ITS ---
HPI - GI Bleed General: Chief complaint: Altered Mental Status Stated complaint: RECTAL BLEED/ GENERAL WEAKNESS/ CONFUSION Time Seen by Provider: 08/31/21 09:32 Source: patient and family Mode of arrival: EMS Limitations: altered mental status History of Present Illness: 70-year-old female presents to the emergency room via ambulance. She had been at home and started having rectal bleeding she has some altered mental status as well. The son had last seen her and she appeared normal about 5 days ago. Not been complaining of anything in particular on arrival here she is disoriented and confused poorly responsive states were over and over she just wants to go home she denies chest or abdominal pain. She is very disoriented seen and tried to walk around outside without any clothes on below the waist. complaint: gross hematochezia Onset (ago): unknown Severity: moderate Relieving factors: none Exacerbating factors: none Associated symptoms: Reports malaise, nausea, poor appetite and weakness; Denies abdominal pain, chills, easy bruising, epistaxis, fever(s), headache(s), other bleeding, rash, syncope or vomiting Treatments Prior to Arrival: none Review of Systems General: Reports: Other (Limited due to her condition at the time of arrival) Const: Reports: fatigue and malaise; Denies: fever(s) or chills ENMT: Denies: epistaxis Card: Denies: chest pain or syncope Resp: Denies: dyspnea GI: Reports: nausea and hematochezia; Denies: abdominal pain or vomiting : Denies: difficulty voiding or dysuria Skin/Breast: Denies: rash Neuro: Denies: headache(s) Jay/Lymph: Denies: easy bruising PFS ED PFSH: Medical History (Updated 08/31/21 @ 14:10 by Catarina Simpson MD) Anxiety about health Aortic regurgitation mild to moderate Arm and leg movements, uncontrollable Atherosclerosis of coronary artery Chronic pain pain clinic in [facility] Congestive heart failure Diastolic COPD (chronic obstructive pulmonary disease) DDD (degenerative disc disease) GERD (gastroesophageal reflux disease) High risk medication use Hypertension Inflammatory arthritis Osteoarthritis of both hands RLS (restless legs syndrome) Seronegative rheumatoid arthritis of both hands Sleep apnea She chose not to treat with CPAP Tobacco abuse 2 ppd all of her adult life, 45 + years. Vulvar cancer s/p excision and radiation therapy Surgical History (Updated 08/31/21 @ 14:10 by Catarina Simpson MD) H/O cataract extraction H/O hemorrhoidectomy H/O: hysterectomy Total Hysterectomy in 1970 History of appendectomy History of bilateral carpal tunnel release History of colon surgery History of colonoscopy 07/2021 History of hernia repair History of lung surgery S/P carpal tunnel release S/P hysterectomy Family History Mother Diabetes Heart disease Hypertension Hyperchloremia Stroke Father Alcohol abuse Sister Dementia Stroke Social History Smoking and tobacco status: current every day smoker cigarettes Packs smoked per day: 2.5 Years cigarettes smoked: 60 [ Other cigarette details: 3ppd previously ] Quit status (tobacco): has tried quititng Second hand smoke exposure: No Smoking risk assessment/counseling performed?: Yes Alcohol intake: former Lives independently: Yes Household members: none Marital status: Current occupational status: disabled Pets and animals: Yes History of recent travel: No Current gender identity: Female Brenda/Adventism: Jainism Physical Exam HENMT: COMMON NORMALS: normocephalic and atraumatic HEAD & SCALP: normocephalic and atraumatic Eye: COMMON NORMALS: Equal, round and reactive pupils present and EOMs intact bilaterally PUPIL: Yes Equal, round and reactive pupils present Neck/C-Spine: COMMON NORMALS: no JVD Resp: COMMON NORMALS: normal respiratory effort, No retractions, No use of accessory muscles and clear to auscultation bilaterally AUSCULTATION: clear to auscultation bilaterally Cardio: COMMON NORMALS: no JVD, regular rate, regular rhythm and No murmurs present (Cardio) RATE: regular rate RHYTHM: regular rhythm GI: COMMON NORMALS: Soft to palpation and No hepatosplenomegaly present AUSCULTATION: Yes normoactive bowel sounds PALPATION: Yes Soft to palpation, No Tenderness to palpation present (GI), No Guarding due to palpation present (GI) and Yes No hepatosplenomegaly present Extremity: COMMON NORMALS: normal to inspection, capillary refill normal, no clubbing, cyanosis or edema, no calf tenderness and no pedal edema Neuro: OTHER: No focal neurologic deficits. Patient uses both extremities and has normal facial expression without any abnormality. Course Vital Signs: Vital signs: Vital Signs Pulse Rate 91 08/31/21 14:00 Respiratory Rate 18 08/31/21 14:00 Blood Pressure 124/69 08/31/21 13:45 Pulse Oximetry 98 08/31/21 13:15 MDM - GI Bleed Medical Decision Making Lower GI bleed with reports of bright red blood patient has acute delirium. We are still waiting on a urine sample. Will admit sure monitor hemoglobin and further evaluate altered mental status. CT head unremarkable discussed Dr. Simpson orders written Medical Records I reviewed the patient's medical records. Lab Data I reviewed the patient's lab results. : 08/31/21 09:50 08/31/21 09:50 Radiology Impressions Abdomen/Pelvis CT 08/31/21 09:33 IMPRESSION: 1. No acute abdominal or pelvic abnormalities are identified. 2. Stable LEFT hepatic cyst and bilateral adrenal adenomas. 3. No GI tract obstruction. 4. Moderate atherosclerotic plaque abdominal aorta. Chest X-Ray 08/31/21 09:56 IMPRESSION: 1. No acute cardiopulmonary finding. No change. Head CT 08/31/21 09:56 IMPRESSION: 1. No acute intracranial hemorrhage or edema. 2. Mild atrophy and small vessel ischemic disease. 3. Remote lacunar infarct RIGHT basal ganglia. Laboratory Results WBC 7.4 10^3/uL (4.0-10.0) 08/31/21 09:50 RBC 3.25 10^6/uL (4.1-5.3) L 08/31/21 09:50 Hgb 10.1 g/dL (11.5-15.3) L 08/31/21 09:50 Hct 32.0 % (37.0-47.0) L 08/31/21 09:50 MCV 98.5 fl (81-99) 08/31/21 09:50 MCH 31.1 pg (28.0-34.0) 08/31/21 09:50 MCHC 31.6 g/dL (30.0-36.0) 08/31/21 09:50 RDW 15.5 % (12.1-15.1) H 08/31/21 09:50 Plt Count 240 10^3/cmm (130-400) 08/31/21 09:50 MPV 10.3 fL (7.4-10.4) 08/31/21 09:50 Neut % (Auto) 70.0 % 08/31/21 09:50 Lymph % (Auto) 20.4 % 08/31/21 09:50 Chase % (Auto) 8.4 % 08/31/21 09:50 Eos % (Auto) 0.5 % 08/31/21 09:50 Baso % (Auto) 0.4 % 08/31/21 09:50 Neut # (Auto) 5.19 10^3/uL (1.8-7.7) 08/31/21 09:50 Lymph # (Auto) 1.5 10^3/uL (0.8-4.8) 08/31/21 09:50 Chase # (Auto) 0.6 10^3/uL (0.2-0.9) 08/31/21 09:50 Eos # (Auto) 0.0 10^3/uL (0.0-0.8) 08/31/21 09:50 Baso # (Auto) 0.0 10^3/uL (0.0-0.1) 08/31/21 09:50 Nucleated RBC % (auto) 0 % 08/31/21 09:50 Nucleated RBCs # 0.0 /100WBC 08/31/21 09:50 PT 13.20 SECONDS (12.1-14.9) 08/31/21 11:09 INR 0.97 (0.8-1.2) 08/31/21 11:09 APTT 28.2 SECONDS (23.9-36.7) 08/31/21 11:09 Specimen Type Arterial 08/31/21 09:54 Sample Site Radial, right 08/31/21 09:54 ABG pH 7.44 (7.35-7.45) 08/31/21 09:54 ABG pCO2 42.7 mmHg (35-45) 08/31/21 09:54 ABG pO2 130.0 mmHg (80.0-100.0) H 08/31/21 09:54 ABG HCO3 28.6 mmol/L (22-26) H 08/31/21 09:54 ABG O2 Saturation 98.3 08/31/21 09:54 ABG Base Excess 3.9 mmol/L (-2.0-2.0) H 08/31/21 09:54 Ismael Test Pos 08/31/21 09:54 A-a O2 Gradient 5.7 mmHg (5-10) 08/31/21 09:54 Hematocrit 32.0 % (37-47) L 08/31/21 09:54 Hgb O2 Saturation 96.3 % (95-100) 08/31/21 09:54 Carboxyhemoglobin 0.6 %THgb (0.4-20.1) 08/31/21 09:54 Methemoglobin 1.4 % (0.4-1.5) 08/31/21 09:54 Total Hemoglobin 10.4 g/dL (12-16) L 08/31/21 09:54 Sodium 148.0 mmol/L (131-143) H 08/31/21 09:54 Potassium 3.5 mmol/L (3.5-5.0) 08/31/21 09:54 Glucose 117.0 mg/dL (70-115) H 08/31/21 09:54 Ionized Calcium 1.2 mmol/L (1.1-1.4) 08/31/21 09:54 O2 Delivery Device Nc 08/31/21 09:54 O2 Liters/Min 3.0 % 08/31/21 09:54 FiO2 32.0 % 08/31/21 09:54 Trademark Affixer ID Vivro 08/31/21 09:54 Sodium 145 mmol/L (136-145) 08/31/21 09:50 Potassium 3.6 mmol/L (3.5-5.1) 08/31/21 09:50 Chloride 107 mmol/L (98-107) 08/31/21 09:50 Carbon Dioxide 26 mmol/L (22-29) 08/31/21 09:50 Anion Gap 15.6 (5-19) 08/31/21 09:50 BUN 23 mg/dL (8-23) 08/31/21 09:50 Creatinine 0.6 mg/dL (0.5-0.9) 08/31/21 09:50 GFR Calculation Not Reportable 08/31/21 09:50 Glucose 116 mg/dL (65-115) H 08/31/21 09:50 Calculated Osmolality 305 mOsm/kg (285-295) H 08/31/21 09:50 Calcium 9.2 mg/dL (8.5-10.5) 08/31/21 09:50 Magnesium 2.3 mg/dL (1.7-2.3) 08/31/21 09:50 Total Bilirubin 0.3 mg/dL (0.15-1.2) 08/31/21 09:50 AST 30 U/L (0-32) 08/31/21 09:50 ALT 15 U/L (0-33) 08/31/21 09:50 Alkaline Phosphatase 82 IU/L (35-105) 08/31/21 09:50 Total Protein 6.6 g/dL (6.6-8.7) 08/31/21 09:50 Albumin 4.1 g/dL (3.5-5.2) 08/31/21 09:50 Globulin 2.5 g/dL (1.3-4.6) 08/31/21 09:50 Lipase 22 U/L (13-60) 08/31/21 09:50 Discharge Plan Discharge Patient Disposition: Placed in Observation Admit Provider: Catarina Simpson Clinical Impression: Acute GI bleeding, Altered mental state Coding Level of Care Code ED Recreation Director for Chg Fwd Exam Comprehensive
[2021-08-31 11:58] LABS: Partial Thromboplastin Time 28.2 SECONDS (23.9-36.7)
[2021-08-31] MEDS: diphenhydrAMINE 50 mg/mL SDV 1mL 25 MG IVP (13:54)
[2021-08-31] MEDS: haloperidol inj 5 mg/mL INJ 1 mL IM (13:54)
--- NOTE | 2021-08-31 13:59 | P.HP_ITS ---
Providers/Chief Complaint Admitting Physician: Catarina Simpson MD Primary Care Provider: Sean Durand MD Chief Complaint: RECTAL BLEED/ GENERAL WEAKNESS/ CONFUSION History of Present Illness Tatiana Alvarez is a 70 year old female who presented to the emergency room with chief complaint of not acting right and rectal bleeding. Patient lives alone in [place]. Her son visits her 1-2 times a week. She has a nurse that comes by once a week and a cleaning person that comes by maybe 3 times a week. Mrs. Alvarez's son calls her almost every day. On Tuesday she seemed like her usual self. On Tuesday she seemed more goofy than usual but he did not really think much of it at the time. Normally when Tatiana wakes up she is disoriented. It will last 15 to 30 minutes or so and then she is back to her normal self. Today when he came over to see her she heard him come in the door and yelled out that she was in the bathroom. This is not an unusual habit for her. But usually this is followed a short time later by her coming out of the bathroom. Today she again yelled out a short time later that she was in the bathroom. She then yelled out that she was bleeding. Her son came into the room and noted that there was some blood on a cough. He called for an ambulance to come. While he was doing this she had taken off her underwear and her pants, only had her shirt on and was wandering outside. She seemed to have no idea what was going on. She was not acting like her usual self and did not respond to directions. EMS brought her in and initial vital signs here showed blood pressure 162/87, pulse 89, oxygen saturation 93%. No report of any fever. There was a wet spot on the kitchen floor but otherwise Tatiana son did not get an idea of if there had been any vomiting, bowel movements or urination evident around the house. Mrs. Silva medications are arranged in a medicine box for her. She keeps her pain medications separately. Its not known if she has run out or taken extra of any of these medications. She does have chronic pain for which she goes to a pain clinic and [place] with Dr. Stubbs. She has had steroid injection sometime within the last few weeks for pain control. Chronically she has prescriptions for baclofen, unclear if she takes it regularly, hydrocodone 10/325, ibuprofen as needed, Lyrica, sulfasalazine and Plaquenil among other medications. She sees multiple doctors including rheumatology, cardiology, pulmonology, pain clinic, spine surgeon and orthopedics. She had colonoscopy and EGD at the end of July for colon cancer screening as well as complaint of her food sticking in her esophagus, respectively. EGD revealed chronic localized gastritis with some gastric erosions without active bleeding were noted. There was a mention of contact bleeding. Biopsy was taken for H. pylori and she was started on Protonix daily. Colonoscopy was performed without any abnormalities identified. In the emergency room today she was noted to have hemoglobin less than prior values as well as significant alteration in her mental status. She was yelling and screaming and very much not who she usually is according to her son. Tatiana has had a gradual decline over the last 2 months. She is complained of increasing severity of back pain, become more stooped over, and cannot seem to walk as far without having noticeable increased work of breathing and discomfort. No known fever, upper respiratory symptoms that are new, GI symptoms, urinary symptoms. Primary complaint from Mrs. Alvarez is consistently back pain. Attempts to get additional history from her are unsuccessful today. She accuses me of trying to kill her, insist that I leave and when I do not immediately attempt to fight for her own safety. She is able to provide the year, the day of the week, her birthday and her name appropriately. She can yell for her son by name correctly but does not believe that he is not here. She thinks we are hiding him from her. History obtained from discussion with patient's son and review of available records. Review of Systems General: Reports: ROS unobtainable due to medical condition and ROS unobtainable due to mental status Medications/Allergies Home Medications Medication Instructions Recorded Confirmed Last Taken Type levalbuterol tartrate 45 2 inh INHALATION Q6H PRN #15 g 10/23/20 08/31/21 07/30/21 Rx mcg/actuation aerosol inhaler (Xopenex HFA) hydrocodone 10 mg-acetaminophen 1 tab PO Q6H PRN 12/29/20 08/31/21 07/30/21 History 325 mg tablet lisinopril 40 mg tablet 40 mg PO DAILY #90 tab 05/27/21 08/31/21 07/30/21 Rx bumetanide 1 mg tablet 2 mg PO BID #360 tab 06/15/21 08/31/21 07/30/21 Rx magnesium oxide 400 mg PO DAILY 07/02/21 08/31/21 07/30/21 History pregabalin 100 mg capsule 100 mg PO BID 07/02/21 08/31/21 07/29/21 History albuterol sulfate 2.5 mg (3 mL) INHALATION Q6H PRN 07/16/21 08/31/21 08/03/21 09:00 Rx #90 ml bupropion HCl 100 mg tablet,12 hr 100 mg PO QAM #30 tab 07/16/21 08/31/21 07/30/21 Rx sustained-release nystatin 100,000 unit/gram topical 1 applic TOPICAL BID #60 g 07/16/21 08/31/21 07/27/21 Rx powder spironolactone 25 mg tablet 25 mg PO QAM #30 tab 07/16/21 08/31/21 07/30/21 Rx metoprolol tartrate 50 mg tablet 50 mg PO BID #180 tab 07/22/21 08/31/21 07/30/21 Rx guaifenesin 600 mg tablet, 600 mg PO Q12H PRN #60 tab 07/31/21 08/31/21 Unknown Rx extended release 12 hr hydroxychloroquine 200 mg tablet 200 mg PO BID 08/03/21 08/31/21 07/30/21 History (Plaquenil) pantoprazole 40 mg tablet,delayed 40 mg PO DAILY #90 tab 08/03/21 08/31/21 Unknown Rx release tiotropium 2.5 mcg-olodaterol 2.5 2 puff INHALATION DAILY #4 g 08/20/21 08/31/21 Unknown Rx mcg/actuation mist for inhalation (Stiolto Respimat) amitriptyline 50 mg tablet 50 - 100 mg PO BEDTIME PRN 08/31/21 08/31/21 Unknown History atorvastatin 20 mg tablet 20 mg PO DAILY 08/31/21 08/31/21 Unknown History baclofen 20 mg tablet 20 mg PO BID PRN 08/31/21 08/31/21 Unknown History ferrous sulfate 325 mg (65 mg 325 mg PO DAILY PRN 08/31/21 08/31/21 Unknown History iron) tablet (Iron (ferrous sulfate)) ibuprofen 800 mg tablet 800 mg PO DAILY PRN 08/31/21 08/31/21 Unknown History sulfasalazine 500 mg tablet 1,000 mg PO BID 08/31/21 08/31/21 Unknown History Allergies Allergy/AdvReac Type Severity Reaction Status Date / Time metronidazole [From Flagyl] Allergy Intermediate Sores on Verified 08/31/21 11:07 legs Additional Medication Information Unclear if patient has been compliant with her medications noted above, taken them in excess or not taken them regularly I personally reviewed a large bag of medications brought from home by her son. It looks like she only took her morning medications this weekend and not the medications in the middle of the day or at bedtime. She has very full bottles of several medications but there are similar medicines in place in her pillbox such as the baclofen. Her son was unable to find any of the hydrocodone tablets at home. PFSH Acute PFSH: Medical History (Updated 08/31/21 @ 17:32 by Catarina Simpson MD) Anxiety about health Aortic regurgitation mild to moderate Arm and leg movements, uncontrollable Atherosclerosis of coronary artery Chronic pain pain clinic in [facility] Congestive heart failure Diastolic COPD (chronic obstructive pulmonary disease) DDD (degenerative disc disease) GERD (gastroesophageal reflux disease) High risk medication use History of PFTs 05/2020: normal spirometry and lung volumes; isolated gas transfer suggestive of pulmonary vascular disease Hypertension Osteoarthritis of both hands RLS (restless legs syndrome) Seronegative rheumatoid arthritis of both hands Sleep apnea She chose not to treat with CPAP Tobacco abuse 2 ppd all of her adult life, 45 + years. Vulvar cancer s/p excision and radiation therapy Surgical History (Updated 08/31/21 @ 17:32 by Catarina Simpson MD) H/O cataract extraction H/O hemorrhoidectomy H/O: hysterectomy Total Hysterectomy in 1970 History of appendectomy History of bilateral carpal tunnel release History of cardiac catheterization 07/2020: moderate left main, stenosis, FFR 0.94, no hemodynamically significant History of colon surgery History of colonoscopy 07/2021 History of hernia repair History of lung surgery S/P carpal tunnel release Family History Mother Diabetes Heart disease Hypertension Hyperchloremia Stroke Father Alcohol abuse Sister Dementia Stroke Social History (Updated 08/31/21 @ 15:27 by Catarina Simpson MD) Smoking and tobacco status: current every day smoker cigarettes Packs smoked per day: 2.5 Years cigarettes smoked: 60 [ Other cigarette details: 3ppd previously ] Quit status (tobacco): has tried quititng Second hand smoke exposure: No Alcohol intake: former Substance/Drug Use: never Lives independently: Yes Household members: none Marital status: Current occupational status: disabled Pets and animals: Yes Current gender identity: Female Brenda/Confucianism: Anabaptist Vitals/I&O/Wt Last Vital Signs Pulse 108 H 08/31/21 13:45 Resp 18 08/31/21 13:45 BP 124/69 08/31/21 13:45 Pulse Ox 98 08/31/21 13:15 Weight last 48 hrs Weight 86.183 kg Physical Exam Narrative: Patient was seen and examination was attempted. She was lying down in bed and as high came into the room she sat up on her elbows leaning on her right side. She had a frown on her face that was symmetric. She was able to point her index finger of her left hand straight with no tremors noted. She subsequently pointed with her right hand again with no tremors noted. Mucous membranes appear dry on gross inspection. Extraocular movements were grossly intact. Pupils appeared reactive bilaterally. Chest expansion grossly equal bilaterally with no accessory muscle use noted. Patient was able to yell loudly for her son who is no longer here and to insist that I leave her room. She managed to grab my stethoscope and my arms and was very strong with both hands. She had some trace pitting edema noted at both shins although skin was dry. Sensation was intact to both feet with her pulling away and kicking equally. No large sores or bruises noted to the extremities. Some scattered minor ecchymoses noted to upper extremities. Grossly normal external genitalia without any visible blood although not able to examine closely. Erythema note to intertrigenous areas in groin bilaterally. Data : 08/31/21 09:50 08/31/21 09:50 Other Labs: Radiology Impressions Abdomen/Pelvis CT 08/31/21 09:33 IMPRESSION: 1. No acute abdominal or pelvic abnormalities are identified. 2. Stable LEFT hepatic cyst and bilateral adrenal adenomas. 3. No GI tract obstruction. 4. Moderate atherosclerotic plaque abdominal aorta. Chest X-Ray 08/31/21 09:56 IMPRESSION: 1. No acute cardiopulmonary finding. No change. Head CT 08/31/21 09:56 IMPRESSION: 1. No acute intracranial hemorrhage or edema. 2. Mild atrophy and small vessel ischemic disease. 3. Remote lacunar infarct RIGHT basal ganglia. Laboratory Results WBC 7.4 10^3/uL (4.0-10.0) 08/31/21 09:50 RBC 3.25 10^6/uL (4.1-5.3) L 08/31/21 09:50 Hgb 10.1 g/dL (11.5-15.3) L 08/31/21 09:50 Hct 32.0 % (37.0-47.0) L 08/31/21 09:50 MCV 98.5 fl (81-99) 08/31/21 09:50 MCH 31.1 pg (28.0-34.0) 08/31/21 09:50 MCHC 31.6 g/dL (30.0-36.0) 08/31/21 09:50 RDW 15.5 % (12.1-15.1) H 08/31/21 09:50 Plt Count 240 10^3/cmm (130-400) 08/31/21 09:50 MPV 10.3 fL (7.4-10.4) 08/31/21 09:50 Neut % (Auto) 70.0 % 08/31/21 09:50 Lymph % (Auto) 20.4 % 08/31/21 09:50 [place] % (Auto) 8.4 % 08/31/21 09:50 Eos % (Auto) 0.5 % 08/31/21 09:50 Baso % (Auto) 0.4 % 08/31/21 09:50 Neut # (Auto) 5.19 10^3/uL (1.8-7.7) 08/31/21 09:50 Lymph # (Auto) 1.5 10^3/uL (0.8-4.8) 08/31/21 09:50 [place] # (Auto) 0.6 10^3/uL (0.2-0.9) 08/31/21 09:50 Eos # (Auto) 0.0 10^3/uL (0.0-0.8) 08/31/21 09:50 Baso # (Auto) 0.0 10^3/uL (0.0-0.1) 08/31/21 09:50 Nucleated RBC % (auto) 0 % 08/31/21 09:50 Nucleated RBCs # 0.0 /100WBC 08/31/21 09:50 PT 13.20 SECONDS (12.1-14.9) 08/31/21 11:09 INR 0.97 (0.8-1.2) 08/31/21 11:09 APTT 28.2 SECONDS (23.9-36.7) 08/31/21 11:09 Specimen Type Arterial 08/31/21 09:54 Sample Site Radial, right 08/31/21 09:54 ABG pH 7.44 (7.35-7.45) 08/31/21 09:54 ABG pCO2 42.7 mmHg (35-45) 08/31/21 09:54 ABG pO2 130.0 mmHg (80.0-100.0) H 08/31/21 09:54 ABG HCO3 28.6 mmol/L (22-26) H 08/31/21 09:54 ABG O2 Saturation 98.3 08/31/21 09:54 ABG Base Excess 3.9 mmol/L (-2.0-2.0) H 08/31/21 09:54 Ismael Test Pos 08/31/21 09:54 A-a O2 Gradient 5.7 mmHg (5-10) 08/31/21 09:54 Hematocrit 32.0 % (37-47) L 08/31/21 09:54 Hgb O2 Saturation 96.3 % (95-100) 08/31/21 09:54 Carboxyhemoglobin 0.6 %THgb (0.4-20.1) 08/31/21 09:54 Methemoglobin 1.4 % (0.4-1.5) 08/31/21 09:54 Total Hemoglobin 10.4 g/dL (12-16) L 08/31/21 09:54 Sodium 148.0 mmol/L (131-143) H 08/31/21 09:54 Potassium 3.5 mmol/L (3.5-5.0) 08/31/21 09:54 Glucose 117.0 mg/dL (70-115) H 08/31/21 09:54 Ionized Calcium 1.2 mmol/L (1.1-1.4) 08/31/21 09:54 O2 Delivery Device Nc 08/31/21 09:54 O2 Liters/Min 3.0 % 08/31/21 09:54 FiO2 32.0 % 08/31/21 09:54 Letterpress Setter ID [place] 08/31/21 09:54 Sodium 145 mmol/L (136-145) 08/31/21 09:50 Potassium 3.6 mmol/L (3.5-5.1) 08/31/21 09:50 Chloride 107 mmol/L (98-107) 08/31/21 09:50 Carbon Dioxide 26 mmol/L (22-29) 08/31/21 09:50 Anion Gap 15.6 (5-19) 08/31/21 09:50 BUN 23 mg/dL (8-23) 08/31/21 09:50 Creatinine 0.6 mg/dL (0.5-0.9) 08/31/21 09:50 GFR Calculation Not Reportable 08/31/21 09:50 Glucose 116 mg/dL (65-115) H 08/31/21 09:50 Calculated Osmolality 305 mOsm/kg (285-295) H 08/31/21 09:50 Calcium 9.2 mg/dL (8.5-10.5) 08/31/21 09:50 Magnesium 2.3 mg/dL (1.7-2.3) 08/31/21 09:50 Total Bilirubin 0.3 mg/dL (0.15-1.2) 08/31/21 09:50 AST 30 U/L (0-32) 08/31/21 09:50 ALT 15 U/L (0-33) 08/31/21 09:50 Alkaline Phosphatase 82 IU/L (35-105) 08/31/21 09:50 Total Protein 6.6 g/dL (6.6-8.7) 08/31/21 09:50 Albumin 4.1 g/dL (3.5-5.2) 08/31/21 09:50 Globulin 2.5 g/dL (1.3-4.6) 08/31/21 09:50 Lipase 22 U/L (13-60) 08/31/21 09:50 Other data: Echo 02/2020 CONCLUSIONS ?LV systolic function is normal with EF of 55 to 60%. ?Grade 1 diastolic dysfunction is seen. ?There is mild to moderate aortic regurgitation. ?Trace mitral regurgitation is seen. ?RVSP is 30-35mmhg.? Mild pulmonary hypertension is seen. ?Compared to prior echocardiogram from 10/28/2019, no significant ?changes are seen. Cath 07/2020 Diagnostic Findings ? * Left Main: Ostium has 30-40% stenosis, CHAVO: 3 flow. ? * Left Anterior Descending has no disease. ? * Circumflex has no disease. ? * Right Coronary Artery has no disease. ? * Coronary angiography shows right dominance. Interventional Findings ? * Procedure detail: After diagnostic pictures we decided to perform FFR of ostial left main artery. A JL 3.5 guide catheter was used to engage left main. After zeroing and equalization the pressure wire was advanced into the left circumflex artery past the ostial left main lesion. IV adenosine was used to perform FFR. FFR value of 0.94 was obtained.? This was nonischemic.? FFR wire was removed and final angiogram was performed that showed excellent CHAVO-3 flow. Guidewire and guide catheter were removed. TR band was applied to achieve hemostasis and patient left the [employer] in a stable condition.. Conclusions ? 1. Left main artery has mild to moderate disease. FFR is non ischemic. ? 2. Otherwise no significant disease. A&P Assessment and plan (1) Altered mental state: Differential diagnosis quite broad currently. First thought is medication effect, whether that be withdrawal or over ingestion, or even potentially known side effect. It sounds like there has been a gradual decline in her cognitive capabilities over time but that today is worse than her son has ever experienced. Acute vascular event, such as heart attack or stroke can be considered given risk factors of tobacco use, historical hypertension and hyperlipidemia. Current exam seems to be nonfocal beyond mental status changes. CT of the head did showed evidence of old lacunar infarcts and some chronic changes. She has no known personal history of coronary artery disease. He has history of CHF with preserved ejection fraction and aortic regurgitation from what I can gather in records. Occult infection is something to keep in mind although presently with no evidence of fever, normal white count and differential. It should be recalled that she had steroid injection sometime within the last few weeks for pain in her neck and back done through her pain clinic. Urinary tract infection in particular should be ruled out but we have not been able to get urine specimen thus far. Seizures, cognitive decline for other reasons exacerbated by disruption to her usual routine are another consideration. The only thing I have been able to identify potentially associated from the timeline that the son provides of a couple of months of not knowing where she is when she wakes up in the morning is that her dosing of amitriptyline was increased a few months ago and buproprion was added at once daily dosing. Patient is already received Benadryl and Haldol in the emergency room Will try benzodiazepines and monitor response Resume baclofen scheduled but at a lower dose Decrease dose of Lyrica Hold amitriptyline Hold buproprion Check urinalysis Check urine drug screen Check EKG, at least baseline and morning troponin, not currently safe to attempt serial lab more frequently Check BNP for baseline Monitor for more specific signs and symptoms of infection; if apparent consider cultures, fungal studies and electronics hardware design engineer fluid as part of work up if clear foci not identified Serial neuro exams When she becomes more cooperative can consider further evaluation as deemed appropriate, possibly carotid ultasound and echo Current goal is for her to be safe and for those caring for her to be safe Sitter for safety Status: Acute Qualifiers: Altered mental status type: delirium Qualified Code(s): R41.0 - Disorientation, unspecified (2) Bright red blood per rectum: Report from home with visible blood on a cloth that was bright red. Hemoglobin down 1 g/dL since last value of 11.2 in June of this year. No visible gross bleeding currently. Had a colonoscopy in July that did not show any abnormalities. EGD at the time did show some gastritis with gastric erosions for which she was changed to Protonix from omeprazole and famotidine. Continue PPI Status: Acute (3) Polypharmacy: Access to numerous medications in the home setting some of which have been discontinued and are labeled as such but many within easy reach. She has a nurse who sets out pillboxes for her but unclear if she takes appropriately. Appears to have not taken her medications as prescribed this past weekend at the very least. Recommend minimizing medications as much as possible to limit contributions to further cognitive decline Patient's son expressed desire to decrease number of medications she is normally on as he has been concerned about this for a while Status: Acute (4) Chronic pain: Follows with pain care clinic in [place]. On hydrocodone, Lyrica, ibuprofen and baclofen. Had been on as many as 8 hydrocodone pe day but has been cut back to 4 per day. Continue hydrocodone at current dosing prescribed by pain clinic, has been on higher doses in the past Continue Lyrica at half dose Stop ibuprofen Continue baclofen at half dosing Status: Chronic Qualifiers: Chronic pain type: other chronic pain Qualified Code(s): G89.29 - Other chronic pain (5) Congestive heart failure: Chronic CHF with preserved ejection fraction/diastolic, not currently acute. Chronically on spironolactone, bumetanide and lisinopril. Has known aortic regurgitation and follows with cardiology clinic. Continue Bumex at lower dose of 2 mg daily rather than twice per day Monitor I's and O's Currently holding Aldactone and lisinopril secondary to lower blood pressures Status: Chronic Qualifiers: Heart failure type: diastolic Heart failure chronicity: chronic Qualified Code(s): I50.32 - Chronic diastolic (congestive) heart failure (6) COPD (chronic obstructive pulmonary disease): Not currently acute DuoNebs if needed Status: Chronic Qualifiers: COPD type: emphysema Emphysema type: centrilobular Qualified Code(s): J43.2 - Centrilobular emphysema (7) Seronegative rheumatoid arthritis of both hands: Follows with Dr. Zapata. Currently on sulfasalazine 1000 mg twice per day and hydroxychloroquine. Not complaining of pain in her hands presently. Continue lower dose of sulfasalazine until we determine potential source of bleeding Hold Plaquenil until able to evaluate a bit more from a cardiac standpoint Status: Chronic (8) Hypertension: Chronic diagnosis for which she is on metoprolol in addition to already mentioned diuretic therapy and PRISCILLA inhibitor Will continue a lower dose of metoprolol currently Status: Chronic (9) GERD (gastroesophageal reflux disease): EGD with gastritis and gastric erosions noted at the end of July Continue PPI but change to twice daily Status: Chronic Plan Nicotine dependence with cigarettes with other associated conditions Borderline blood sugar Tinea corporis Inpatient admission Care as noted above Reviewed with patient's son risk of certain medications, in particular antipsychotics, at her age and with her comorbid conditions. We reviewed potential causes of current presentation and various options to try to manage i ncluding removing some medications, providing short-term medications to see how they impact her and the like. Risk of these medications including stroke, arrhythmia, heart attack and potential benefits of allowing her mind and opportunity to reset were reviewed and son was agreeable to plan of care. Need to continue evaluation for medical cause of current presentation but ultimately may require Helen psych if medical etiology is not identified. Sitter for safety Nicotine patch as needed Monitor sugars Nystatin powder Lovenox for DVT prophylaxis Supportive care otherwise Findings, concerns and plans were discussed with patient side and he was given an opportunity to ask questions Disposition plans will depend on clinical course. May require geriatric psych evaluation. Ideally goal would be to get her back home where she has been living alone. She has had some home health. May need that expanded if able to go home. Recommend someone not only assist her in setting up all medications (which appears to be happening to a degree), but also assist with disposing of those no longer being taken if she goes back home to manage her own care Patient is FULL CODE however should it be determined that she would need long- term life support she would not want that per my discussion with her son Attestations Medical Necessity Statement*: Anticipated stay greater than two midnights in a 70-year-old with comorbid medical conditions as noted above presenting with significant delirium for uncl ear reason at this time. She is at clear risk of harming herself and others with current condition and has potential acute medical issues as possible cause. No definitive diagnosis of cognitive dysfunction at baseline plans however it sounds like she may have had some degree of cognitive decline for couple of months. Time Spent in Patient Care: Greater than 35 minutes (>than 50% of time spent in counselling and/or direct pt care on unit) . I spent 120 minutes between initial evaluation and several follow up evaluations due to acute beh avior changes. Also discussed at length with son and reviewed personally all the medication bottles he could find at his mothers house. Coding Level of Care Code Acute Psychologist Industrial Organizational for Tracy Medrano Diagnoses Altered mental state R41.0 Altered mental status type: delirium Bright red blood per rectum K62.5 Polypharmacy Z79.899 Chronic pain G89.29 Chronic pain type: other chronic pain Congestive heart failure I50.32 Heart failure type: diastolic Heart failure chronicity: chronic COPD (chronic obstructive pulmonary disease) J43.2 COPD type: emphysema Emphysema type: centrilobular Seronegative rheumatoid arthritis of both hands M06.041; M06.042 Hypertension I10 GERD (gastroesophageal reflux disease) K21.9
[2021-08-31] MEDS: LORazepam 2 mg/mL INJ 1 mL 0.5 MG IVP (15:31)
--- NOTE | 2021-08-31 15:44 | ECG_ITS ---
[facility] Test Date: 2021-08-31 Pat Name: Tatiana Alvarez Department: Room: 269 Gender: Female Gelatin Maker Utility: : 1950 Requested By: Catarina Simpson Order Number: [id number] Shayy MD: Blanquita Lopez M.D. Measurements Intervals [place] Rate: 104 P: 65 [place]: 159 QRS: 49 QRSD: 91 T: 35 QT: 333 QTc: 438 Interpretive Statements SINUS TACHYCARDIA POSSIBLE LEFT ATRIAL ENLARGEMENT [-0.1mV P-WAVE IN V1/V2] MODERATE ST DEPRESSION [0.05+ mV ST DEPRESSION] Compared to ECG 10/07/2017 10:23:30 ST (T wave) deviation now present Sinus rhythm no longer present Electronically Signed On 08-31-2021 21:07:21 CDT by Blanquita Lopez M.D. [id number]
[2021-08-31] MEDS: LORazepam 2 mg/mL INJ 1 mL 0.5 MG IM (16:12)
[2021-08-31 17:15] LABS: NT Pro B Type Natriuretic Pept 203 pg/mL (0-125); Troponin T (5th) Once 12 ng/L (0-10)
--- NOTE | 2021-08-31 17:27 | PC.NURSE ---
This nurse was called to this patients room as patient was being violent and acting out to staff. Dr asked to administer two dosages of ativan per orders placed in MAR. Ativan IV/IM is on shortage so pharmacy and physician and nurse systems integration manager asked to keep one dose vial for multiple appropriate doses. This nurse delivered amount per MAR and will be handing off the vial with 1mg remaining to the receiving nurse.
[2021-08-31 18:34] LABS: Alcohol Level < 10 mg/dL (0-10)
[2021-08-31 19:30] LABS: Ketone (Acetest) Serum Negative (Negative)
[2021-08-31 19:58] LABS: Urine Appearance Hazy (CLEAR); Urine Color Yellow (Yellow)
[2021-08-31 19:59] LABS: Amphetamines Screen Urine Negative (Negative); Barbiturates Screen Urine Negative (Negative); Benzodiazepines Screen Urine Positive (Negative); Cocaine Screen Urine Negative (Negative); PCP Screen Urine Negative (Negative); THC Screen Urine Negative (Negative)
[2021-08-31 20:00] LABS: Specific Gravity, Urine 1.015 (1.005-1.030); pH Urine 6 (5-7)
[2021-08-31 20:01] LABS: Bilirubin Urine Neg (Negative); Blood Urine Trace (Negative); Glucose Urine UA Norm (Normal); Ketones Urine 2+ (Negative); Nitrate Urine Negative (Negative); Protein Urine Trace (Negative); Urobilinogen Urine Norm (Negative)
[2021-08-31 20:02] LABS: Add Urine Microscopic? YES; Leukocyte Esterase Urine Trace (Negative)
[2021-08-31 20:05] LABS: Squamous Epithelial Cell Urine 0-4 /hpf (0-5); Transitional Epi Cells Urine 0-4 /hpf; WBC Urine 0-4 /hpf (0-5)
[2021-08-31 20:06] LABS: Bacteria Urine 1+ /hpf; Mucus Urine 1+ /hpf
[2021-08-31 20:07] LABS: Amorphous Sediment Urine 1+ /hpf
[2021-08-31 20:09] LABS: Sulfosalicylic Acid Urine Negative (Negative)
[2021-08-31 20:29] LABS: Opiate Screen Urine Positive (Negative)
[2021-08-31] MEDS: sodium chloride 0.9% 1,000 ML 50 ML IV (22:09)
[2021-09-01] VITALS (8 sets, daily range): BP systolic 160–178; BP diastolic 77–84; PULSE 104–125; RESP 16–20; TEMP 36.6–37.3; O2SAT 88–93
[2021-09-01 04:58] LABS: Basophils % 0.5 %; Eosinophils % 0.4 %; Hematocrit 35.1 % (37.0-47.0); Hemoglobin 10.4 g/dL (11.5-15.3); Lymphocytes # 1.4 10^3/uL (0.8-4.8); Lymphocytes % 19.2 %; Mean Corpuscular HGB Conc 29.6 g/dL (30.0-36.0); Mean Corpuscular Hemoglobin 30.1 pg (28.0-34.0); Mean Corpuscular Volume 101.4 fl (81-99); Monocytes # 0.6 10^3/uL (0.2-0.9); Monocytes % 8.7 %; Neutrophils # 5.21 10^3/uL (1.8-7.7); Neutrophils % 70.9 %; Nucleated Red Blood Cells % 0 %; Platelet Count 218 10^3/cmm (130-400); Red Blood Count 3.46 10^6/uL (4.1-5.3); Red Cell Distribution Width 15.6 % (12.1-15.1); White Blood Count 7.4 10^3/uL (4.0-10.0)
[2021-09-01 05:25] LABS: Troponin T (5th) Once 13 ng/L (0-10)
[2021-09-01 05:31] LABS: Anion Gap 21.6 (5-19); Blood Urea Nitrogen 14 mg/dL (8-23); Calcium 8.8 mg/dL (8.5-10.5); Carbon Dioxide 20 mmol/L (22-29); Chloride 105 mmol/L (98-107); Creatinine Clr Calc Pharmacy 64.7573; Glucose 100 mg/dL (65-115); Osmolality Calculated 297 mOsm/kg (285-295); Potassium 3.6 mmol/L (3.5-5.1); Sodium 143 mmol/L (136-145); Thyroid Stimulating Hormone 0.92 uIU/mL (0.27-4.20)
[2021-09-01] MEDS: enoxaparin 40 mg/0.4 mL Syringe SUBCUT (05:32)
[2021-09-01 05:36] LABS: Creatine Phosphokinase 421 U/L (26-192)
--- NOTE | 2021-09-01 09:35 | ECG_ITS ---
[facility] Test Date: 2021-09-01 Pat Name: Tatiana Alvarez Department: Room: 269 Gender: Female Circuit Walker: : 1950 Requested By: Tadeo Lockwood Order Number: [id number] Shayy MD: Paulette Hernández M.D. Measurements Intervals [place] Rate: 120 P: 72 [place]: 132 QRS: 52 QRSD: 84 T: 42 QT: 318 QTc: 451 Interpretive Statements SINUS TACHYCARDIA ABNORMAL RHYTHM ECG Compared to ECG 08/31/2021 17:30:30 ST (T wave) deviation no longer present Electronically Signed On 09-01-2021 12:05:08 CDT by Paulette Hernández M.D. [id number]
--- NOTE | 2021-09-01 10:36 | PC.CHAP ---
Pastoral Care Encounter/Spiritual Assessment Type of Contact [] Declined director of trauma visit [] Patient/Family/Request visit [] Outpatient visit [] Follow-up visit [] Physician referral [] Code/Alert [c] Routine visit [] Staff referral [] Actively dying [c] Patient sleeping [] Family support [] [] Out of room [] Palliative care [] [] Receiving care in room [] Pre-surgical visit [] Trauma [] Long length of stay [] ICU visit [] Other: Relational/Emotional Strength [] Patient feels connected with others/family/visitors/staff [] Distress [] Loneliness/isolation [] Abandonment Spirituality of Patient [] Person of Brenda [] Attends Denominational of their Brenda [] Believes in Prayer [] Reads Bible or Presybeterian materials [] There are Spiritual issues to be addressed Rush Seater Interventions [] Prayer [] Active listening [] Non-anxious presence [] Spiritual/emotional support [] Crisis/trauma care [] Spiritual counseling [] Bereavement support [] Provided bereavement packet [] Provided Bible/devotional materials [] Provided toy/stuffed animal, coloring book to patient or family member [] Provided Communion [] Anointing/[place] [] Salvation [] Completed spiritual assessment [] Other: Impact on Illness or Injury [] Angry [] Fearful [] Anxious [] Often cries [] Exhaustion [] Unable to work [] Unable to attend zoroastrian [] Unable to walk/stand [] Unable to read [] Unable to drive [] Unable to eat/drink [] Unable to sleep [] Unable to be with family [] Patient intubated [] Other: Summary Time spent with patient
--- NOTE | 2021-09-01 11:21 | PM.PN ---
Subjective Subjective: This morning patient is able to move her extremities, she open her eyes after multiple audible stimuli, her son clapped pretty strongly to wake her up, She is keeping her mouth closed tightly, she has not talking with us however she is following commands She is moving her extremities No strokelike features Clinically dehydrated Son present in the room She is on one-to-one supervision Vitals/I&O/Wt Last Vital Signs Temp 98.7 F 09/01/21 07:15 Pulse 120 H 09/01/21 08:00 Resp 20 H 09/01/21 08:00 BP 172/84 09/01/21 07:15 Pulse Ox 88 L 09/01/21 08:00 08/31/21 09/01/21 09/01/21 22:59 06:59 14:59 Intake Total 0 / 0 0 / 0 0 / 0 Output Total 750 / 750 Balance 0 / 0 -750 / -750 0 / 0 Weight last 48 hrs Weight 86.183 kg Physical Exam Narrative: This morning she is calm, cooperative She is not talking with us keeping her mouth closed Following commands Moving her extremities No signs of stroke Clinically looks dehydrated Mild ankle edema Ramirez catheter with clear urine Sinus tachycardia, S1, S2 Hypertensive No audible stridor or wheezing Saturating well on room air Urinary Catheter Management: Ramirez: Cath Placed During This Visit: yes Reason for Continuing Indwelling Catheter: Acute Urinary Retention or Obstruction Urinary Catheter Date of Insertion: 08/31/21 Urinary Catheter Time of Insertion: 16:30 Data : 09/01/21 04:39 09/01/21 04:39 A&P Assessment and plan (1) Osteoarthritis of hands, bilateral: Status: Chronic Qualifiers: Osteoarthritis type: primary Qualified Code(s): M19.041 - Primary osteoarthritis, right hand; M19.042 - Primary osteoarthritis, left hand (2) Altered mental state: Status: Acute Qualifiers: Altered mental status type: delirium Qualified Code(s): R41.0 - Disorientation, unspecified (3) Arm and leg movements, uncontrollable: Status: Chronic (4) Hypertension: Status: Chronic (5) Anxiety about health: Status: Chronic (6) GERD (gastroesophageal reflux disease): Status: Chronic (7) Seronegative rheumatoid arthritis of both hands: Status: Chronic (8) High risk medication use: Status: Chronic (9) COPD (chronic obstructive pulmonary disease): Status: Chronic Qualifiers: COPD type: emphysema Emphysema type: centrilobular Qualified Code(s): J43.2 - Centrilobular emphysema (10) Sleep apnea: Status: Chronic (11) Bright red blood per rectum: Status: Acute Plan Metabolic encephalopathy Delirium with possible underlying dementia Rule out reversible causes I will check TSH, B12 rule out UTI however UA is not strongly positive for pyuria I would continue her on ceftriaxone and IV fluids She looks dehydrated as well Will request psychiatrist to evaluate her as well No signs of stroke no signs of meningitis Son was asking about heatstroke She has been afebrile Continue thiamine Hypertensive in sinus tachycardic, opiate withdrawal? Sinus tachycardia, check D-dimer, I will also request venous Doppler, continue her metoprolol which she was taking at home tachycardia could be related to dehydration EKG confirms sinus tachycardia no signs of A. fib Diastolic congestive heart failure without exacerbation History of alcohol abuse Polypharmacy Back pain, chronic pain, she takes Lyrica hydrocodone ibuprofen and baclofen No active rectal bleed: Hemoglobin is stable Seronegative rheumatoid arthritis no acute exacerbation Patient lives alone, if she is considered unsafe to return home we might pursue placement to a penitentiary, will be evaluated tomorrow morning, she is full code Lovenox for DVT prophylaxis to be continued Attestations Medical Necessity Statement*: Continue medical management Time Spent in Patient Care: 30 Coding Level of Care Code Acute Process Mold Technician for Chg Fwd Diagnoses Osteoarthritis of hands, bilateral M19.041; M19.042 Osteoarthritis type: primary Altered mental state R41.0 Altered mental status type: delirium Arm and leg movements, uncontrollable R25.8 Hypertension I10 Anxiety about health F41.8 GERD (gastroesophageal reflux disease) K21.9 Seronegative rheumatoid arthritis of both hands M06.041; M06.042 High risk medication use Z79.899 COPD (chronic obstructive pulmonary disease) J43.2 COPD type: emphysema Emphysema type: centrilobular Sleep apnea G47.30 Bright red blood per rectum K62.5
--- NOTE | 2021-09-01 11:37 | USCV_ITS ---
KimTatiana Age: 70 Gender: F : 1950 Exam Date: 09/01/2021 13:11 Ordering Phys: Tadeo Lockwood MD Technologist: MECHELLE Exam Location: [facility] – [place] Indication: BLE SWELLING HISTORY: Lower extremity swelling. PROCEDURES: Venous duplex imaging was performed in bilateral lower extremities. The following venous structures were evaluated: common femoral vein, profunda vein, proximal portion of the greater saphenous vein, superficial femoral vein, and the popliteal vein. In addition, the posterior tibial and peroneal trunk were evaluated. Serial compression, augmentation maneuvers, and spectral Doppler flow evaluation were performed. FINDINGS: Examination was technically limited due to body habitus. Normal 2-D Doppler and augmentation and compressibility throughout the lower extremity venous structures. Additional imaging through the proximal calf veins also reveals no thrombus. Limited evaluation of the greater saphenous vein is patent with no thrombus. CONCLUSIONS No DVT bilateral lower extremities. Dr. Beverley Olson DO (Electronically Signed) Final Date: 01 September 2021 14:56 S
[2021-09-01] MEDS: cefTRIAXone 1,000 MG in sodium chloride 0.9% (plus) 50 ML 100 MG IV (12:00)
[2021-09-01 12:18] LABS: Prolactin 9.01 ng/mL (4.8-23.3)
[2021-09-01] MEDS: metoprolol tartrate 1 mg/1 mL SDV 5 mL 5 MG IVP (13:02)
--- NOTE | 2021-09-01 15:56 | P.NPUCON_ITS ---
Providers/Reason for Consult Consulting Physican/Specialty*: Rupesh Hood MD. Psychiatry. Reason for Consult*: Altered mental status. Attending Physician: Tadeo Lockwood MD Primary Care Provider: Sean Durand MD Psych Consult HPI History of Present Illness Tatiana Alvarez is a 70 year old female who presented to the ED with the following report: Chief complaint: Altered Mental Status Stated complaint: RECTAL BLEED/ GENERAL WEAKNESS/ CONFUSION Time Seen by Provider: 08/31/21 09:32 Source: patient and family Mode of arrival: EMS Limitations: altered mental status History of Present Illness: 70-year-old female presents to the emergency room via ambulance. She had been at home and started having rectal bleeding she has some altered mental status as well. The son had last seen her and she appeared normal about 5 days ago. Not been complaining of anything in particula r on arrival here she is disoriented and confused poorly responsive states were over and over she just wants to go home she denies chest or abdominal pain. She is very disoriented seen and tried to walk around outside without any clothes on below the waist. complaint: gross hematochezia Onset (ago): unknown Severity: moderate Relieving factors: none Exacerbating factors: none Associated symptoms: Reports malaise, nausea, poor appetite and weakness; Denies abdominal pain, chills, easy bruising, epistaxis, fever(s), headache(s), other bleeding, rash, syncope or vomiting Treatments Prior to Arrival: none. She was admitted to the [facility] unit for definitive treatment of those issues. A psychiatric consult was requested after she had an evaluation and there were concerns that possibly there was not a clear medical cause for her odd behavior. She presents today mostly communicative but slow and somewhat confused with one of her sons who was the primary historian. He reports that his mother is fairly independent, lives by herself and has for some time. He reports that he lived in [place] but has been back here for many years and checks on his mother frequently. He reports that he did see her towards the end of last week and then went to see her on Tuesday and knew immediately that things were not right. He reports that she was confused, that she was talking oddly, not answering questions, was sometimes nonverbal and when she went to do something it would be without insight. For instance, he said at one point she tried to go out into the yard without her pants on. So, he brought her to the hospital, and she began her workup. He reports, and she confirms, that outside of anxiety, she has not had any real extensive psychiatric history, maybe some minor depression, but mostly anxiety type things. He reports he does not believe she has been psychiatrically hospitalized and had not traumatic experiences he knows of, he continued, and she concurred, likely on her part due to the continued high level confusion. Additionally, she just received a dose of pain medication and she is having some difficulty with it and had multiple moments of emesis while this insurance underwriter sales was in the room. Otherwise, her history was noncontributory and he did make a point to say that her mental status is greatly improved today compared to when he got here Tuesday and she seemed so out of it. He reports that it is still quite a ways away from her baseline. Additionally, he reported that what is classic delirium that today there was a time in the morning where she was way out of sorts but now she seems better and recognizes him which is not the case prior. There are no reports of significant aggression. She is tolerating and doing well with her medications. Meds Home Medications and Allergies Home Medications Medication Instructions Recorded Confirmed Last Taken Type levalbuterol tartrate 45 2 inh inhalation Q6H PRN shortness 10/23/20 08/31/21 07/30/21 Rx mcg/actuation aerosol inhaler of breath or wheezing #15 grams (Xopenex HFA) hydrocodone 10 mg-acetaminophen 1 tab PO Q6H PRN Pain 12/29/20 08/31/21 07/30/21 History 325 mg tablet lisinopril 40 mg tablet 40 mg PO DAILY #90 tabs 05/27/21 08/31/21 07/30/21 Rx bumetanide 1 mg tablet 2 mg PO BID #360 tabs 06/15/21 08/31/21 07/30/21 Rx magnesium oxide 400 mg PO DAILY 07/02/21 08/31/21 07/30/21 History pregabalin 100 mg capsule 100 mg PO BID 07/02/21 08/31/21 07/29/21 History albuterol sulfate 2.5 mg (3 mL) inhalation Q6H PRN 07/16/21 08/31/21 08/03/21 09:00 Rx shortness of breath or wheezing #90 mL bupropion HCl 100 mg tablet,12 hr 100 mg PO QAM anxiety #30 tabs 07/16/21 08/31/21 07/30/21 Rx sustained-release nystatin 100,000 unit/gram topical 1 applic topical BID skin yeast 07/16/21 08/31/21 07/27/21 Rx powder #60 grams spironolactone 25 mg tablet 25 mg PO QAM edema #30 tabs 07/16/21 08/31/21 07/30/21 Rx metoprolol tartrate 50 mg tablet 50 mg PO BID #180 tabs 07/22/21 08/31/21 07/30/21 Rx guaifenesin 600 mg tablet, 600 mg PO Q12H PRN congestion #60 07/31/21 08/31/21 Unknown Rx extended release 12 hr tabs hydroxychloroquine 200 mg tablet 200 mg PO BID 08/03/21 08/31/21 07/30/21 History (Plaquenil) pantoprazole 40 mg tablet,delayed 40 mg PO DAILY #90 tabs 08/03/21 08/31/21 Unknown Rx release tiotropium 2.5 mcg-olodaterol 2.5 2 puff inhalation DAILY #4 grams 08/20/21 08/31/21 Unknown Rx mcg/actuation mist for inhalation (Stiolto Respimat) amitriptyline 50 mg tablet 50 - 100 mg PO BEDTIME PRN sleep 08/31/21 08/31/21 Unknown History and chronic pain atorvastatin 20 mg tablet 20 mg PO DAILY 08/31/21 08/31/21 Unknown History baclofen 20 mg tablet 20 mg PO BID PRN Spasms 08/31/21 08/31/21 Unknown History ferrous sulfate 325 mg (65 mg 325 mg PO DAILY PRN WEAKNESS 08/31/21 08/31/21 Unknown History iron) tablet (Iron (ferrous sulfate)) ibuprofen 800 mg tablet 800 mg PO DAILY PRN Pain 08/31/21 08/31/21 Unknown History sulfasalazine 500 mg tablet 1,000 mg PO BID 08/31/21 08/31/21 Unknown History Allergies Allergy/AdvReac Type Severity Reaction Status Date / Time metronidazole [From Flagyl] Allergy Intermediate Sores on Verified 08/31/21 11:07 legs Current Medications Current Medications Generic Name Dose Route Start Last Admin Trade Name Freq PRN Reason Stop Dose Admin Hydrocodone Bitart/Acetaminophen 1 tab 08/31/21 16:06 09/01/21 19:10 Hydrocodone-Acetaminophen 10-325 Mg Tablet PO 1 tab Q6H PRN Administration MODERATE TO SEVERE PAIN Atorvastatin Calcium 20 mg 08/31/21 21:00 09/01/21 21:50 Atorvastatin 40 Mg Tablet PO 20 mg BEDTIME PIERCE Administration Enoxaparin Sodium 40 mg 09/01/21 06:00 09/01/21 05:32 Enoxaparin 40 Mg/0.4 Ml Syringe SUBCUT 40 mg Q24H PIERCE Administration Ceftriaxone Sodium 1,000 mg/ 50 mls @ 100 mls/hr 09/01/21 11:30 09/01/21 14:58 Sodium Chloride IV Infused Q24H PIERCE Infusion Protocol Magnesium Oxide 400 mg 08/31/21 18:00 09/01/21 18:04 Magnesium Oxide 400 Mg Tablet PO Not Given BID PIERCE Metoprolol Tartrate 50 mg 09/01/21 21:00 09/01/21 21:50 Metoprolol Tartrate 50 Mg Tablet PO 50 mg BID@0900,2100 PIERCE Administration Nystatin 1 applic 08/31/21 18:00 09/01/21 18:04 Nystatin Powder 15 Gm Btl TOPICAL Not Given BID [facility] Pantoprazole Sodium 40 mg 08/31/21 18:00 09/01/21 18:[address] 40 Mg Tablet PO Not Given BID PIERCE Sulfasalazine 500 mg 08/31/21 18:00 09/01/21 18:05 Sulfasalazine 500 Mg Tablet PO Not Given BID [facility] Protocol PFS NPU PFSH: Medical History (Updated 09/02/21 @ 14:10 by Abdullahi Rivers PA-C) Anxiety about health Aortic regurgitation mild to moderate Arm and leg movements, uncontrollable Atherosclerosis of coronary artery Chronic pain pain clinic in [facility] Congestive heart failure Diastolic COPD (chronic obstructive pulmonary disease) DDD (degenerative disc disease) GERD (gastroesophageal reflux disease) High risk medication use History of PFTs 05/2020: normal spirometry and lung volumes; isolated gas transfer suggestive of pulmonary vascular disease Hypertension Osteoarthritis of both hands RLS (restless legs syndrome) Seronegative rheumatoid arthritis of both hands Sleep apnea She chose not to treat with CPAP Tobacco abuse 2 ppd all of her adult life, 45 + years. Vulvar cancer s/p excision and radiation therapy Surgical History (Updated 08/31/21 @ 17:32 by Catarina Simpson MD) H/O cataract extraction H/O hemorrhoidectomy H/O: hysterectomy Total Hysterectomy in 1970 History of appendectomy History of bilateral carpal tunnel release History of cardiac catheterization 07/2020: moderate left main, stenosis, FFR 0.94, no hemodynamically significant History of colon surgery History of colonoscopy 07/2021 History of hernia repair History of lung surgery S/P carpal tunnel release Family History Mother Diabetes Heart disease Hypertension Hyperchloremia Stroke Father Alcohol abuse Sister Dementia Stroke Social History (Updated 08/31/21 @ 15:27 by Catarina Simpson MD) Smoking and tobacco status: current every day smoker cigarettes Packs smoked per day: 2.5 Years cigarettes smoked: 60 [ Other cigarette details: 3ppd previously ] Quit status (tobacco): has tried quititng Second hand smoke exposure: No Alcohol intake: former Substance/Drug Use: never Lives independently: Yes Household members: none Marital status: Current occupational status: disabled Pets and animals: Yes Current gender identity: Female Brenda/Zoroastrianism: Latter Day Mental Status Exam MSE Comments: This is an obese white female looking older than her stated age in hospital gown looking disheveled with limited eye contact. No abnormal movements except for psychomotor retardation. Intermittently cooperative with exam in mild to moderate distress. Speech was limited and decreased rate and volume, with mostly monosyllabic answers but some sentences structures. Mood described as ?I feel sick?, affect is congruent. Thought process, linear. Thought content: patient denies suicidal or homicidal ideation, no delusions reported or noted, and did not report auditory or visual hallucinations and did not appear to be attending to internal stimuli but did appear confused. Attention and concentration were limited and memory is unreliable, but none were formally tested. She is alert and oriented to person and place. Insight and judgment are impaired. Impulse control is limited. Vitals/I&O/Wt Last Vital Signs Temp 99.1 F 09/01/21 15:20 Pulse 104 H 09/01/21 15:20 Resp 16 09/01/21 15:20 BP 178/82 09/01/21 15:20 Pulse Ox 93 09/01/21 15:20 O2 Del Method 09/01/21 15:20 O2 Flow Rate 2 08/31/21 20:00 09/01/21 09/01/21 09/02/21 14:59 22:59 06:59 Intake Total 50 / 50 Output Total Balance 50 / 50 Weight last 48 hrs Weight 86.183 kg Physical Exam Urinary Catheter Management: Ramirez: Cath Placed During This Visit: yes Reason for Continuing Indwelling Catheter: Acute Urinary Retention or Obs truction Urinary Catheter Date of Insertion: 08/31/21 Urinary Catheter Time of Insertion: 16:30 Data NPU : 09/03/21 04:50 09/03/21 04:50 Micro: Microbiology 09/02/21 02:00 Occult Blood (FIT) - Final Stool Routine Collection Microbiology 09/02/21 02:00 Stool Routine Collection Occult Blood (FIT) - Final A&P Assessment and plan (1) Degenerative disc disease, cervical: Status: Acute (2) DDD (degenerative disc disease), lumbar: Status: Acute (3) Lumbar spondylosis: Status: Acute (4) Delirium: Status: Acute (5) Tobacco abuse: Status: Chronic (6) Sleep apnea: Status: Chronic (7) Cervical spondylosis: Status: Acute Plan This is 70 year old white female with some history of anxiety and depression but limited treatment history, who presents with her son reporting altered mental status with possible identified infection. 1. Continue current medications 2. There certainly appears to be delirium presentation. Should continue to monitor if UTI is not a plausible explanation. 3. Will continue to follow. Attestations NPU Medical Necessity Statement*: N/A. Please see primary team note for medical necessity. Coding Level of Care Code Acute Media Relations Director for g Fwd Diagnoses Degenerative disc disease, cervical M50.30 DDD (degenerative disc disease), lumbar M51.36 Lumbar spondylosis M47.816 Delirium R41.0 Tobacco abuse Z72.0 Sleep apnea G47.30 Cervical spondylosis M47.812
[2021-09-01] MEDS: HYDROcodone-acetaminophen 10-325 mg Tablet 1 TAB PO (19:10)
[2021-09-01] MEDS: hyDRALAzine 20 mg/mL INJ 1 mL 10 MG IVP (19:10)
[2021-09-01] MEDS: metoprolol tartrate 50 mg Tablet PO (21:50)
[2021-09-01] MEDS: atorvastatin 40 mg Tablet 20 MG PO (21:50)
[2021-09-01 23:26] LABS: D Dimer 1.14 ug/mIFEU (0-0.59)
[2021-09-02] VITALS (8 sets, daily range): BP systolic 117–182; BP diastolic 61–81; PULSE 75–97; RESP 14–22; TEMP 36.4–37.2; O2SAT 90–97
[2021-09-02] MEDS: labetalol 5 mg/mL SDV 20mL 10 MG IVP (02:33)
[2021-09-02] MEDS: enoxaparin 40 mg/0.4 mL Syringe SUBCUT (05:59)
[2021-09-02] MEDS: metoprolol tartrate 50 mg Tablet PO ×2 (08:45→21:27)
[2021-09-02] MEDS: sulfaSALAzine 500 mg Tablet PO (08:45)
[2021-09-02] MEDS: pantoprazole DR 40 mg Tablet PO ×2 (08:45→17:21)
[2021-09-02] MEDS: magnesium oxide 400 mg tablet PO ×2 (08:45→17:22)
[2021-09-02] MEDS: nystatin powder 15 gm Btl 1 APPLIC TOPICAL ×2 (08:46→17:22)
[2021-09-02 08:56] LABS: Basophils % 0.5 %; Eosinophils # 0.1 10^3/uL (0.0-0.8); Eosinophils % 0.7 %; Hematocrit 32.6 % (37.0-47.0); Hemoglobin 10.7 g/dL (11.5-15.3); Lymphocytes # 1.8 10^3/uL (0.8-4.8); Lymphocytes % 21.3 %; Mean Corpuscular HGB Conc 32.8 g/dL (30.0-36.0); Mean Corpuscular Hemoglobin 30.6 pg (28.0-34.0); Mean Corpuscular Volume 93.1 fl (81-99); Mean Platelet Volume 10.1 fL (7.4-10.4); Monocytes # 0.7 10^3/uL (0.2-0.9); Monocytes % 7.6 %; Neutrophils # 6.02 10^3/uL (1.8-7.7); Neutrophils % 69.6 %; Nucleated Red Blood Cells % 0 %; Platelet Count 222 10^3/cmm (130-400); Red Cell Distribution Width 15.3 % (12.1-15.1); White Blood Count 8.7 10^3/uL (4.0-10.0)
[2021-09-02 09:24] LABS: Anion Gap 18.9 (5-19); Blood Urea Nitrogen 14 mg/dL (8-23); Carbon Dioxide 22 mmol/L (22-29); Chloride 105 mmol/L (98-107); Creatinine Clr Calc Pharmacy 64.7573; Glucose 113 mg/dL (65-115); Osmolality Calculated 295 mOsm/kg (285-295); Potassium 3.9 mmol/L (3.5-5.1); Sodium 142 mmol/L (136-145)
[2021-09-02] MEDS: ipratropium-albuterol 3 mL Neb INHALATION (09:31)
[2021-09-02] MEDS: HYDROcodone-acetaminophen 10-325 mg Tablet 1 TAB PO ×3 (10:01→21:28)
[2021-09-02] MEDS: cefTRIAXone 1,000 MG in sodium chloride 0.9% (plus) 50 ML 100 MG IV (11:50)
--- NOTE | 2021-09-02 12:02 | MR_ITS ---
WS: [id number] MRI LUMBAR SPINE NONCONTRAST TECHNIQUE: Sagittal T1, T2 and STIR imaging. Axial T1 and T2 imaging. CLINICAL INFORMATION: back pain COMPARISON: MRI May 13, 2021 FINDINGS: Mild lumbar curve. No acute compression. No high-grade central canal stenosis. Slight retrolisthesis L1 on L2, L2 on L3. Disc space narrowing worse L4-L5 and L5-S1. L1-L2: Slight retrolisthesis L1 on L2. Slight effacement of ventral thecal sac. Narrowing of the RIGH T subarticular recess. Mild facet arthropathy. Foramen are patent. L2-L3: Slight retrolisthesis. Mild annular bulging. Moderate facet arthropathy. Moderate narrowing of the thecal sac due to facet arthropathy and ligamentum flavum hypertrophy combination with prominent dorsal epidural fat. This is similar to previous. Mild RIGHT and no LEFT foraminal narrowing. L3-L4: Mild disc bulging with slight impingement RIGHT subarticular recess and traversing RIGHT L4 ne rve root. Mild RIGHT and no significant LEFT foraminal narrowing. Moderate facet arthropathy. Moderat e crowding of the cauda equina nerve rootlets with prominent dorsal epidural fat. L4-L5: Mild disc bulging with narrowing subarticular recess bilaterally. Impingement traversing L5 ne rve roots. Moderate facet arthropathy. Mild RIGHT foraminal narrowing. L5-S1: LEFT eccentric disc osteophyte complex slightly impinges the exiting LEFT L5 nerve root. Moder ate LEFT foraminal narrowing. RIGHT foramen is patent. Moderate facet arthropathy. Visualized pelvic bony structures: Normal. Paravertebral soft tissues: Normal. MR/MR lumbar spine wo con* [id number] IMPRESSION: 1. Mild lumbar curve convex LEFT. No acute compression. 2. Stable retrolisthesis L1 on L2 and L2 on L3. 3. Mild narrowing of the thecal sac L1-L2 with moderate narrowing of the theca l sac L2-L3 and L3-L4 with crowding of the cauda equina nerve rootlets. Promine nt dorsal epidural fat contributes to stenosis. This is stable compared to prev ious. 4. RIGHT foraminal protrusion L3-L4 impinges the exiting RIGHT L3 nerve root. 5. Mild RIGHT L4-L5 foraminal narrowing with slight impingement on the exiting RIGHT L4 nerve root. 6. Moderate LEFT L5-S1 foraminal narrowing impinges the exiting LEFT L5 nerve root. 7. Overall no remarkable changes compared to May 13, 2021.
--- NOTE | 2021-09-02 12:02 | MR_ITS ---
WS: [id number] MRI CERVICAL SPINE NONCONTRAST TECHNIQUE: Sagittal T1, T2 and STIR imaging. Axial T2, gradient, and fiesta imaging. CLINICAL INFORMATION: back pain COMPARISON: April 24, 2021 FINDINGS: Straightening of the normal cervical lordosis. Slight anterolisthesis C4 on C5. Slight anterolisthesi s C6 on C7. Cord signal is normal. C2-C3: Mild LEFT facet arthropathy. Spinal canal and foramen are patent. C3-C4: Mild bilateral bony foraminal narrowing. Mild facet arthropathy. Spinal canal is patent. C4-C5: Slight anterolisthesis. Disc osteophyte complex with endplate ridging. Moderate LEFT and no si gnificant RIGHT foraminal narrowing. Moderate RIGHT facet arthropathy. C5-C6: Disc osteophyte complex with endplate ridging. Mild central canal stenosis. Severe LEFT and mi ld RIGHT bony foraminal narrowing. Mild facet arthropathy. C6-C7: Slight anterolisthesis C6 on C7. Mild facet arthropathy. Mild LEFT greater than RIGHT foramina l narrowing. C7-T1: Mild LEFT bony foraminal narrowing. Spinal canal and RIGHT foramen are patent.. Visualized brain stem structures: Normal. Prevertebral soft tissues: Normal. MR/MR cervical spin wo con* [id number] IMPRESSION: 1. Straightening of the normal cervical lordosis. Slight anterolisthesis C4 on C5 and C6 on C7. 2. Mild central canal stenosis C4-C5 and C5-C6 unchanged compared to previous. 3. Bony foraminal narrowing severe at LEFT C5-C6 unchanged. 4. Otherwise mild to moderate bony foraminal narrowing described above. 5. Overall no significant interval changes since April 24, 2021.
--- NOTE | 2021-09-02 12:03 | P.PN_ITS ---
Subjective Subjective: Patient is morning is awake and alert and talkative She ate her breakfast No bowel movement yet complaining of back pain, patient is stating that she would like to go home but because of back pain she is concerned she uses a walker at home, she did not endorse to overdosing accidentally on opioids, stating that there is a nurse who takes care of her medication but as per her son that nurse only comes once a week I would get MRI of cervical and lumbar region, Dr. Bella consulted, Vitals/I&O/Wt Last Vital Signs Temp 97.7 F 09/02/21 11:55 Pulse 75 09/02/21 11:55 Resp 14 09/02/21 11:55 BP 182/78 09/02/21 11:55 Pulse Ox 92 09/02/21 11:55 O2 Del Method 09/02/21 11:55 O2 Flow Rate 2 08/31/21 20:00 09/01/21 09/02/21 09/02/21 22:59 06:59 14:59 Intake Total 1540 / 1590 0 / 1590 0 / 0 Output Total 0 / 0 Balance 1540 / 1590 0 / 1590 0 / 0 Physical Exam Narrative: She is awake and alert NIH 0 Signs of dehydration improved Answer my questions appropriately Abdomen is soft, intertrigo, Lower extremity without edema Ramirez catheter in place Much more calm, cooperative She has no memory of her recent events No audible stridor or wheezing Currently on room air Urinary Catheter Management: Ramirez: Cath Placed During This Visit: yes Reason for Continuing Indwelling Catheter: Acute Urinary Retention or Obstruction Urinary Catheter Date of Insertion: 08/31/21 Urinary Catheter Time of Insertion: 16:30 Data : 09/02/21 08:20 09/02/21 08:20 Micro: Microbiology 09/01/21 12:35 Urine Culture - Preliminary Urine Catheterized 09/02/21 02:00 Occult Blood (FIT) - Final Stool Routine Collection A&P Assessment and plan (1) Osteoarthritis of hands, bilateral: Status: Chronic Qualifiers: Osteoarthritis type: primary Qualified Code(s): M19.041 - Primary osteoarthritis, right hand; M19.042 - Primary osteoarthritis, left hand (2) Aortic regurgitation: Status: Chronic Qualifiers: Cardiac valve disease etiology: etiology unspecified Qualified Code(s): I35.1 - Nonrheumatic aortic (valve) insufficiency (3) Tobacco abuse: Status: Chronic (4) Chronic pain: Status: Chronic Qualifiers: Chronic pain type: other chronic pain Qualified Code(s): G89.29 - Other chronic pain (5) DDD (degenerative disc disease): Status: Chronic (6) Sleep apnea: Status: Chronic (7) COPD (chronic obstructive pulmonary disease): Status: Chronic Qualifiers: COPD type: emphysema Emphysema type: centrilobular Qualified Code(s): J43.2 - Centrilobular emphysema (8) High risk medication use: Status: Chronic (9) Congestive heart failure: Status: Chronic Qualifiers: Heart failure type: diastolic Heart failure chronicity: chronic Qualified Code(s): I50.32 - Chronic diastolic (congestive) heart failure (10) Lumbar stenosis with neurogenic claudication: Status: Chronic (11) Seronegative rheumatoid arthritis of both hands: Status: Chronic (12) GERD (gastroesophageal reflux disease): Status: Chronic (13) Polypharmacy: Status: Acute (14) Bright red blood per rectum: Status: Acute (15) Delirium: Status: Acute Plan Acute delirium Improved This was most likely related to polypharmacy Opiate Baclofen Dehydration This morning she is awake and alert no signs of stroke No active psychosis or delusion Patient is complaining of rectal bleed however hemoglobin has remained stable Had 1 bowel movement Hemodynamically stable Hold Lovenox for tonight Patient is complaining of neck pain, lower back pain she has history of seronegative rheumatoid arthritis Will request MRI of cervical and lumbar region Dr. Bella consulted I will give her lidocaine patch along her hydrocodone Continue bowel regimen No significant signs of UTI I would go ahead and discontinue ceftriaxone Sinus tachycardia and hypertension improved this was most likely opioid withdrawal Full code Cardiac diet DVT prophylaxis on hold Patient does not want to go to shelter, she lives alone, has home health services Will need a walker PT evaluation Attestations Medical Necessity Statement*: Anticipating discharge after MRI, Dr. 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[employer] Diagnoses Osteoarthritis of hands, bilateral M19.041; M19.042 Osteoarthritis type: primary Aortic regurgitation I35.1 Cardiac valve disease etiology: etiology unspecified Tobacco abuse Z72.0 Chronic pain G89.29 Chronic pain type: other chronic pain DDD (degenerative disc disease) Sleep apnea G47.30 COPD (chronic obstructive pulmonary disease) J43.2 COPD type: emphysema Emphysema type: centrilobular High risk medication use Z79.899 Congestive heart failure I50.32 Heart failure type: diastolic Heart failure chronicity: chronic Lumbar stenosis with neurogenic claudication M48.062 Seronegative rheumatoid arthritis of both hands M06.041; M06.042 GERD (gastroesophageal reflux disease) K21.9 Polypharmacy Z79.899 Bright red blood per rectum K62.5 Delirium R41.0
--- NOTE | 2021-09-02 13:55 | P.CONIM_ITS ---
Providers/Reason For Consult Consulting Physician/Specialty*: Orthopedic spine Reason for Consult*: Neck pain and low back pain Requesting Physician: Dr Lockwood Attending Physician: Tadeo Lockwood MD Primary Care Provider: Sean Durand MD History of Present Illness History of Present Illness Tatiana Alvarez is a 70 year old female who presented to [facility] with medical problems. She was reporting continued neck and low back pain that is progressively gotten worse since April 2021. She states she has had multiple falls she feels that her legs get weak when she walks any distance. She reports more back pain than leg pain. Ranks her pain as 7 out of 10 on the pain scale at its worst. She describes the low back pain is sharp stabbing constant pain localized over the right low back and buttock region worse than left. She states pain travels over the outside of her right leg stops at the knee. She has intermittent groin pain. Activities make her symptoms much worse. Rest gives her some temporary relief. She denies any loss of bowel or bladder control. She has tried medications for arthritis, pain medication as well as spasms without much benefit. She also reports neck pain with 100% neck pain she denies any arm pain. She describes the pain with movement making her symptoms much worse. Activities overhead lifting makes her neck pain much worse. She denies any clumsiness or any falling. Although when she turns or leans her head to the side she feels dizzy. She denies any particular injury to her neck. She feels that this pain has progressively intensified since April 2021 as well. Ranks the pain is 7 out of 10 on the pain scale at its worst. Describes her neck pain is aching, stabbing, spasming type pain with movements. Denies any clumsiness or falling denies any loss of dexterity. Activities seem to make her neck pain much worse. She has tried home stretching exercises without much benefit. She has tried medications for arthritis, pain medication as well as spasms without much bene fit. An extensive review of the patient's past medical history, surgical history, allergies, medications, family history, social history, and review of systems was completed Review of Systems General: Reports: 10 or more systems reviewed and unremarkable except in HPI and below Medications/Allergies Home Medications Medication Instructions Recorded Confirmed Last Taken Type levalbuterol tartrate 45 2 inh inhalation Q6H PRN shortness 10/23/20 08/31/21 07/30/21 Rx mcg/actuation aerosol inhaler of breath or wheezing #15 grams (Xopenex HFA) hydrocodone 10 mg-acetaminophen 1 tab PO Q6H PRN Pain 12/29/20 08/31/21 07/30/21 History 325 mg tablet lisinopril 40 mg tablet 40 mg PO DAILY #90 tabs 05/27/21 08/31/21 07/30/21 Rx bumetanide 1 mg tablet 2 mg PO BID #360 tabs 06/15/21 08/31/21 07/30/21 Rx magnesium oxide 400 mg PO DAILY 07/02/21 08/31/21 07/30/21 History pregabalin 100 mg capsule 100 mg PO BID 07/02/21 08/31/21 07/29/21 History albuterol sulfate 2.5 mg (3 mL) inhalation Q6H PRN 07/16/21 08/31/21 08/03/21 09 :00 Rx shortness of breath or wheezing #90 mL bupropion HCl 100 mg tablet,12 hr 100 mg PO QAM anxiety #30 tabs 07/16/21 08/31/21 07/30/21 Rx sustained-release nystatin 100,000 unit/gram topical 1 applic topical BID skin yeast 07/16/21 08/31/21 07/27/21 Rx powder #60 grams spironolactone 25 mg tablet 25 mg PO QAM edema #30 tabs 07/16/21 08/31/21 07/30/21 Rx metoprolol tartrate 50 mg tablet 50 mg PO BID #180 tabs 07/22/21 08/31/21 07/30/21 Rx guaifenesin 600 mg tablet, 600 mg PO Q12H PRN congestion #60 07/31/21 08/31/21 Unknown Rx extended release 12 hr tabs hydroxychloroquine 200 mg tablet 200 mg PO BID 08/03/21 08/31/21 07/30/21 History (Plaquenil) pantoprazole 40 mg tablet,delayed 40 mg PO DAILY #90 tabs 08/03/21 08/31/21 Unknown Rx release tiotropium 2.5 mcg-olodaterol 2.5 2 puff inhalation DAILY #4 grams 08/20/21 08/31/21 Unknown Rx mcg/actuation mist for inhalation (Stiolto Respimat) amitriptyline 50 mg tablet 50 - 100 mg PO BEDTIME PRN sleep 08/31/21 08/31/21 Unknown History and chronic pain atorvastatin 20 mg tablet 20 mg PO DAILY 08/31/21 08/31/21 Unknown History baclofen 20 mg tablet 20 mg PO BID PRN Spasms 08/31/21 08/31/21 Unknown History ferrous sulfate 325 mg (65 mg 325 mg PO DAILY PRN WEAKNESS 08/31/21 08/31/21 Unknown History iron) tablet (Iron (ferrous sulfate)) ibuprofen 800 mg tablet 800 mg PO DAILY PRN Pain 08/31/21 08/31/21 Unknown History sulfasalazine 500 mg tablet 1,000 mg PO BID 08/31/21 08/31/21 Unknown History Allergies Allergy/AdvReac Type Severity Reaction Status Date / Time metronidazole [From Flagyl] Allergy Intermediate Sores on Verified 08/31/21 11:07 legs Current Medications Generic Name Dose Route Start Last Admin Trade Name Freq PRN Reason Stop Dose Admin Hydrocodone Bitart/Acetaminophen 1 tab 08/31/21 16:06 09/02/21 10:01 Hydrocodone-Acetaminophen 10-325 Mg Tablet PO 1 tab Q6H PRN Administration MODERATE TO SEVERE PAIN Albuterol/Ipratropium 3 ml 08/31/21 16:12 09/02/21 09:31 Ipratropium-Albuterol 3 Ml Neb INHALATION 3 ml Q4H PRN Administration SHORTNESS OF BREATH Atorvastatin Calcium 20 mg 08/31/21 21:00 09/01/21 21:50 Atorvastatin 40 Mg Tablet PO 20 mg BEDTIME PIERCE Administration Enoxaparin Sodium 40 mg 09/01/21 06:00 09/02/21 05:59 Enoxaparin 40 Mg/0.4 Ml Syringe SUBCUT 40 mg Q24H PIERCE Administration Fluticasone Propionate 1 spray 09/02/21 09:00 09/02/21 08:45 Fluticasone Nasal Raymond 16gm Btl NASAL 1 spray BID PIERCE Administration Magnesium Oxide 400 mg 08/31/21 18:00 09/02/21 08:45 Magnesium Oxide 400 Mg Tablet PO 400 mg BID PIERCE Administration Metoprolol Tartrate 50 mg 09/01/21 21:00 09/02/21 08:45 Metoprolol Tartrate 50 Mg Tablet PO 50 mg BID@0900,2100 PIERCE Administration Nystatin 1 applic 08/31/21 18:00 09/02/21 08:46 Nystatin Powder 15 Gm Btl TOPICAL 1 applic BID PIERCE Administration Pantoprazole Sodium 40 mg 08/31/21 18:00 09/02/21 08:[address] 40 Mg Tablet PO 40 mg BID PIERCE Administration Sulfasalazine 500 mg 08/31/21 18:00 09/02/21 08:45 Sulfasalazine 500 Mg Tablet PO 500 mg BID PIERCE Administration Protocol PFSH Acute PFSH: Medical History (Updated 09/02/21 @ 14:10 by Abdullahi Rivers PA-C) Anxiety about health Aortic regurgitation mild to moderate Arm and leg movements, uncontrollable Atherosclerosis of coronary artery Chronic pain pain clinic in [facility] Congestive heart failure Diastolic COPD (chronic obstructive pulmonary disease) DDD (degenerative disc disease) GERD (gastroesophageal reflux disease) High risk medication use History of PFTs 05/2020: normal spirometry and lung volumes; isolated gas transfer suggestive of pulmonary vascular disease Hypertension Osteoarthritis of both hands RLS (restless legs syndrome) Seronegative rheumatoid arthritis of both hands Sleep apnea She chose not to treat with CPAP Tobacco abuse 2 ppd all of her adult life, 45 + years. Vulvar cancer s/p excision and radiation therapy Surgical History (Updated 08/31/21 @ 17:32 by Catarina Simpson MD) H/O cataract extraction H/O hemorrhoidectomy H/O: hysterectomy Total Hysterectomy in 1970 History of appendectomy History of bilateral carpal tunnel release History of cardiac catheterization 07/2020: moderate left main, stenosis, FFR 0.94, no hemodynamically significant History of colon surgery History of colonoscopy 07/2021 History of hernia repair History of lung surgery S/P carpal tunnel release Family History Mother Diabetes Heart disease Hypertension Hyperchloremia Stroke Father Alcohol abuse Sister Dementia Stroke Social History (Updated 08/31/21 @ 15:27 by Catarina Simpson MD) Smoking and tobacco status: current every day smoker cigarettes Packs smoked per day: 2.5 Years cigarettes smoked: 60 [ Other cigarette details: 3ppd previously ] Quit status (tobacco): has tried quititng Second hand smoke exposure: No Alcohol intake: former Substance/Drug Use: never Lives independently: Yes Household members: none Marital status: Current occupational status: disabled Pets and animals: Yes Current gender identity: Female Brenda/[employer]ology: [employer] Vitals/I&O/Wt Last Vital Signs Temp 97.7 F 09/02/21 11:55 Pulse 75 09/02/21 11:55 Resp 14 09/02/21 11:55 BP 182/78 09/02/21 11:55 Pulse Ox 92 09/02/21 11:55 O2 Del Method 09/02/21 11:55 O2 Flow Rate 2 08/31/21 20:00 09/01/21 09/02/21 09/02/21 22:59 06:59 14:59 Intake Total 1540 / 1590 0 / 1590 530 / 530 Output Total 0 / 0 Balance 1540 / 1590 0 / 1590 530 / 530 Physical Exam Narrative: Patient demonstrates normal gait normal tandem gait. Negative Romberg or signs of ataxia. Normal coordination and normal stability. Moder ately tender with palpation throughout the cervical and thoracic regions. Normal sensation to light touch in all dermatomal layers. No signs of muscle wasting. Normal functional range of motion of the cervical with flexion to 35 degrees, extends 25 degrees, rotates 25 degrees symmetrically with difficulty, laterally bends 20 degrees symmetrically. Negative Spurling and Liriano tests. Normal motor strength in all muscle groups with 5/5 strength in shoulders, elbows, wrists and digits bilaterally. No gross laxity. Reflexes 2+ and symmetric but the biceps, triceps and brachioradialis bilaterally. Negative Phalen's and Tinel's sign bilaterally. Radial pulses 2+ bilaterally. No palpable lymphadenopathy. No evidence of peripheral edema. Demonstrates raising up onto heels and toes with difficulty. Exhibits normal coordination and normal stability. Moderate palpatory and percussion pain throughout the paraspinous musculature of the lumbar spine. No obvious curvature in the forward bend test. Examination reveals normal alignment, normal functional range of motion of the thoracolumbar spine with Flexion to 45 degrees, extends 15 degrees with increased pain, laterally bends 10 degrees symmetrically. Normal sensation to light touch through all dermatomal layers. Normal sensation light touch down both lower extremities with 5/5 motor strength throughout all motor groups. Moderate palpatory pain over the facets and greater trochanteric region on the right side greater than left. Mild palpable pain over the SI joints bilaterally. Negative Luis F and Fabere sign. Neg ative straight leg raise bilaterally. Skin is clear warm with normal sensation to light touch, calves are supple with no medial thigh tenderness, negative Homans' sign. No palpable lymphadenopathy bilaterally. Reflexes are 2+ and symmetric about the knees and Achilles. No hyperreflexia or clonus. Downgoing Babinski's bilaterally. Dorsalis pedis and posterior tibial pulses are 2+. No palpable edema bilaterally. HENMT: COMMON NORMALS: normocephalic and atraumatic HEAD & SCALP: normocephalic and atraumatic Resp: COMMON NORMALS: normal respiratory effort Cardio: COMMON NORMALS: regular rate and regular rhythm RATE: regular rate RHYTHM: regular rhythm GI: COMMON NORMALS: Soft to palpation and non-tender PALPATION: Yes Soft to palpation : COMMON NORMALS: Yes no CVA tenderness BLADDER/KIDNEY EXAM: Yes no CVA tenderness Back/Pelvis: COMMON NORMALS: no CVA tenderness Psych: COMMON NORMALS: mental status grossly normal and cooperative Urinary Catheter Management: Ramirez: Cath Placed During This Visit: yes, but has since been removed by the nurse Reason for Continuing Indwelling Catheter: Decision to DC Catheter Urinary Catheter Date of Insertion: 08/31/21 Urinary Catheter Time of Insertion: 16:30 Date Urinary Catheter Removed: 09/02/21 Time Urinary Catheter Discontinued: 12:00 Data : 09/02/21 08:20 09/02/21 08:20 Micro: Microbiology 09/01/21 12:35 Urine Culture - Preliminary Urine Catheterized 09/02/21 02:00 Occult Blood (FIT) - Final Stool Routine Collection Other data: MR/MR cervical spin wo con* [id number] IMPRESSION: ? 1.? Straightening of the normal cervical lordosis. Slight anterolisthesis C4 on C5 and slight retrolisthesis C5 on C6 unchanged since . Slight anterolisthesis C6 on C7 appears slightly progressed. 2.? Mild central canal stenosis C4-C5 and C5-C6 due to disc osteophyte complex is unchanged. 3.? Moderate LEFT C4-C5 and severe LEFT C5-C6 bony foraminal narrowing worse at C5-C6 unchanged from previous. 4.? Otherwise mild to moderate bony foraminal narrowing at LEFT C3-C4, RIGHT C5- C6, LEFT C6-C7, and LEFT C7-C1. 5.? Moderate facet arthropathy more prominent at LEFT C2-C3 and RIGHT C4-C5 MR/MR lumbar spine wo con* [id number] IMPRESSION: ? 1.? Mild progression of degenerative disc disease and facet joint and disc disease since 2016. 2.? LEFT lumbar rotary scoliosis. 3.? Mild central and RIGHT foraminal stenosis at L1-2. 4.? Mild central, bilateral subarticular recess and RIGHT foraminal stenosis at L2-3 disc contacts the L3 nerve roots and the RIGHT L2 nerve root. 5.? Moderate RIGHT subarticular recess and foraminal stenosis L3-4 with a disc protrusion and facet joint encroachment. Mild central stenosis at L3-4. 6.? Mild encroachment upon the subarticular recesses and foramina at L4-5. 7.? Moderate to severe LEFT foraminal stenosis with disc an ossified contact on the LEFT L5 and S1 nerve roots. Very minimal contact on the RIGHT S1 nerve root. A&P Assessment and plan (1) Lumbar stenosis with neurogenic claudication: Reviewed the MRI scans at length with the patient. There were no x-rays available from her recent hospitalization. She states that her symptoms have go tten worse since April 2021. She has had intermittent falls most recent being yesterday in the emergency room. Therefore we will update the MRI scan of her cervical and lumbar spine without contrast. I will order cervical and lumbar radiographs with AP, lateral, flexion-extension views. Based on those findings we will discuss further treatment options. In the meantime encouraged her to be cautious with bending lifting or twisting activities. Activities as tolerated are fine. More than 50% of the time spent with the patient today involved coordination of care, counseling and discussion of conservative versus surgical treatment options. Total amount of time spent with the patient was 45 minutes. 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
--- NOTE | 2021-09-02 16:54 | W.PM.NPUPNS ---
Subjective NPU Subjective: Patient presents today appearing much better and getting closer to baseline. She was she feels somewhat better and it can be identified on the lack of stress on her face compared to yesterday. She is able to have a much more coherent conversation and reports that she is able to eat better and is sleeping better. Mental Status Exam MSE Comments: This is an obese white female in hospital gown with adequate grooming and eye contact. No abnormal movements except for mild psychomotor retardation. Cooperative with exam in no acute distress. Speech was slightly decreased volume, normal rate with normal sentence structure. Mood described as better, affect is congruent. Thought process, organized. Thought content: patient denies suicidal or homicidal ideation, no delusions reported or noted, and did not report auditory or visual hallucinations and did not appear to be attending to internal stimuli and did not appear confused. Attention and concentration were intact and memory is more reliable, but none were formally tested. She is alert and oriented x 3. Insight and judgment are improving. Impulse control is improving. Vitals/I&O/Wt Last Vital Signs Temp 98.1 F 09/02/21 15:47 Pulse 78 09/02/21 15:47 Resp 16 09/02/21 15:47 BP 167/73 09/02/21 15:47 Pulse Ox 97 09/02/21 15:47 O2 Del Method 09/02/21 15:47 O2 Flow Rate 2 08/31/21 20:00 Physical Exam Urinary Catheter Management: Ramirez: Cath Placed During This Visit: yes, but has since been removed by the nurse Reason for Continuing Indwelling Catheter: Acute Urinary Retention or Obstruction Urinary Catheter Date of Insertion: 08/31/21 Urinary Catheter Time of Insertion: 16:30 Date Urinary Catheter Removed: 09/02/21 Time Urinary Catheter Discontinued: 12:00 Data NPU : 09/03/21 04:50 09/03/21 04:50 Micro: Microbiology 09/02/21 15:23 Occult Blood (FIT) - Final Stool Routine Collection 09/01/21 12:35 Urine Culture - Preliminary Urine Catheterized Microbiology 09/02/21 15:23 Stool Routine Collection Occult Blood (FIT) - Final 09/01/21 12:35 Urine Catheterized Urine Culture - Preliminary A&P Assessment and plan (1) Degenerative disc disease, cervical: Status: Acute (2) DDD (degenerative disc disease), lumbar: Status: Acute (3) Lumbar spondylosis: Status: Acute (4) Cervical spondylosis: Status: Acute (5) Delirium: Status: Acute (6) Tobacco abuse: Status: Chronic (7) Chronic pain: Status: Chronic Qualifiers: Chronic pain type: other chronic pain Qualified Code(s): G89.29 - Other chronic pain (8) Sleep apnea: Status: Chronic Plan This is 70 year old white female with some history of anxiety and depression but limited treatment history, who presents with her son reporting altered mental status with possible identified infection. 1. Continue current medications 2. Appears to be resolving delirium. 3. Will sign off. Please contact if any further issues arise. Attestations NPU Medical Necessity Statement*: N/A. Please see primary team note for medical necessity. Coding Level of Care Code Acute Clinical Quality Analyst for Tracy Medrano Diagnoses Degenerative disc disease, cervical M50.30 DDD (degenerative disc disease), lumbar M51.36 Lumbar spondylosis M47.816 Cervical spondylosis M47.812 Delirium R41.0 Tobacco abuse Z72.0 Chronic pain G89.29 Chronic pain type: other chronic pain Sleep apnea G47.30
[2021-09-02] MEDS: atorvastatin 40 mg Tablet 20 MG PO (21:27)
[2021-09-02] MEDS: lidocaine 5% Patch 1 PATCH TOPICAL (21:28)
[2021-09-02] MEDS: nicotine 14 mg Patch 1 PATCH TRANSDERMA (21:28)
[2021-09-03 00:18] VITALS: BP 162/69; PULSE 72; RESP 18; TEMP 36.7; O2SAT 93
[2021-09-03] MEDS: HYDROcodone-acetaminophen 10-325 mg Tablet 1 TAB PO ×2 (04:23→10:35)
[2021-09-03 05:16] VITALS: BP 137/68; PULSE 79; RESP 16; TEMP 36.3; O2SAT 95
[2021-09-03 05:47] LABS: Basophils # 0.1 10^3/uL (0.0-0.1); Basophils % 0.7 %; Eosinophils # 0.2 10^3/uL (0.0-0.8); Eosinophils % 2.1 %; Hemoglobin 9.6 g/dL (11.5-15.3); Lymphocytes # 1.8 10^3/uL (0.8-4.8); Mean Corpuscular HGB Conc 34.3 g/dL (30.0-36.0); Mean Corpuscular Volume 90.3 fl (81-99); Mean Platelet Volume 10.2 fL (7.4-10.4); Monocytes # 0.8 10^3/uL (0.2-0.9); Neutrophils # 5.23 10^3/uL (1.8-7.7); Neutrophils % 64.7 %; Nucleated Red Blood Cells % 0 %; Platelet Count 202 10^3/cmm (130-400); White Blood Count 8.1 10^3/uL (4.0-10.0)
[2021-09-03 06:11] LABS: Anion Gap 16.4 (5-19); Blood Urea Nitrogen 17 mg/dL (8-23); Calcium 8.8 mg/dL (8.5-10.5); Carbon Dioxide 22 mmol/L (22-29); Chloride 106 mmol/L (98-107); Creatinine Clr Calc Pharmacy 64.7573; Glucose 95 mg/dL (65-115); Osmolality Calculated 293 mOsm/kg (285-295); Potassium 3.4 mmol/L (3.5-5.1); Sodium 141 mmol/L (136-145)
--- NOTE | 2021-09-03 07:59 | PM.PN ---
Subjective Subjective: Patient sitting up in the chair this morning having coffee reports continued intermittent neck and low back pain. Denies any changes from last evening. Vitals/I&O/Wt Last Vital Signs Temp 97.4 F L 09/03/21 05:16 Pulse 79 09/03/21 05:16 Resp 16 09/03/21 05:16 BP 137/68 09/03/21 05:16 Pulse Ox 95 09/03/21 05:16 O2 Del Method 09/03/21 05:16 O2 Flow Rate 2 08/31/21 20:00 09/02/21 09/03/21 09/03/21 22:59 06:59 14:59 Intake Total 360 / 890 Output Total 500 / 500 Balance -140 / 390 Physical Exam Narrative: Patient is alert and orient x3 has a good general appearance normal normal affect. She is sitting up in the chair this morning having coffee. Reports continued neck pain denies any arm pain. She has pain with flexion extension lateral bending rotation of the cervical spine. She has 5/5 strength in both upper extremities with with firing in all motor groups. Good sensation light touch in both upper extremities hands warm good cap refill. Radial pulses are palpable. Good sensation to light touch. She has palpable pain over the facets on both sides of the cervical spine.. Pain with palpation over the paraspinous musculature of the lumbar spine primarily over the facets on the right side worse than left. She has good strength in both lower extremities 5/5 strength. She appears to fire in all muscle groups. Normal sensation light touch in feet are warm good cap refill calves are supple no medial thigh tenderness. Dorsalis pedis and posterior tibial pulses are palpable. She wiggles all digits. HENMT: COMMON NORMALS: normocephalic HEAD & SCALP: normocephalic Resp: COMMON NORMALS: normal respiratory effort Cardio: COMMON NORMALS: regular rate and regular rhythm RATE: regular rate RHYTHM: regular rhythm GI: COMMON NORMALS: Soft to palpation PALPATION: Yes Soft to palpation : COMMON NORMALS: Yes no CVA tenderness BLADDER/KIDNEY EXAM: Yes no CVA tenderness Back/Pelvis: COMMON NORMALS: no CVA tenderness Psych: COMMON NORMALS: cooperative Urinary Catheter Management: Ramirez: Cath Placed During This Visit: yes, but has since been removed by the nurse Reason for Continuing Indwelling Catheter: Acute Urinary Retention or Obstruction Urinary Catheter Date of Insertion: 08/31/21 Urinary Catheter Time of Insertion: 16:30 Date Urinary Catheter Removed: 09/02/21 Time Urinary Catheter Discontinued: 12:00 Data : 09/03/21 04:50 09/03/21 04:50 Micro: Microbiology 09/02/21 15:23 Occult Blood (FIT) - Final Stool Routine Collection 09/01/21 12:35 Urine Culture - Preliminary Urine Catheterized Other data: MR/MR cervical spin wo con* [id number] IMPRESSION: ? 1.? Straightening of the normal cervical lordosis. Slight anterolisthesis C4 on C5 and C6 on C7. 2.? Mild central canal stenosis C4-C5 and C5-C6 unchanged compared to previous. 3.? Bony foraminal narrowing severe at LEFT C5-C6 unchanged. 4.? Otherwise mild to moderate bony foraminal narrowing described above. 5.? Overall no significant interval changes since April 24, 2021. MR/MR lumbar spine wo con* [id number] IMPRESSION: ? 1.? Mild lumbar curve convex LEFT. No acute compression. 2.? Stable retrolisthesis L1 on L2 and L2 on L3. 3.? Mild narrowing of the thecal sac L1-L2 with moderate narrowing of the thecal sac L2-L3 and L3-L4 with crowding of the cauda equina nerve rootlets. Prominent dorsal epidural fat contributes to stenosis. This is stable compared to previous. 4.? RIGHT foraminal protrusion L3-L4 impinges the exiting RIGHT L3 nerve root. 5.? Mild RIGHT L4-L5 foraminal narrowing with slight impingement on the exiting RIGHT L4 nerve root. 6.? Moderate LEFT L5-S1 foraminal narrowing impinges the exiting LEFT L5 nerve root. 7.? Overall no remarkable changes compared to May 13, 2021. ? A&P Assessment and plan (1) Degenerative disc disease, cervical: Reviewed and discussed the MRI scans at length with her. At this point would recommend conservative treatment which would be physical therapy both on her cervical and lumbar spine. Also would recommend setting her up for consultation with Dr. Morse for her cervical spine and lumbar spine. Consider facet blocks in the lumbar spine with possible radiofrequency ablation. Discussed with Ms. Alvarez that we will see her back in the office in approximately 4 weeks following the pain clinic work-up to discuss further treatment options. Status: Acute (2) DDD (degenerative disc disease), lumbar: Status: Acute (3) Lumbar spondylosis: Status: Acute (4) Lumbar stenosis with neurogenic claudication: Status: Chronic Attestations Medical Necessity Statement*: Defer to Medical Team Coding Level of Care Code Acute Digital Cartographic Technician for g Fwd Diagnoses Degenerative disc disease, cervical M50.30 DDD (degenerative disc disease), lumbar M51.36 Lumbar spondylosis M47.816 Lumbar stenosis with neurogenic claudication M48.062
[2021-09-03 08:00] VITALS: BP 172/80; PULSE 90; PULSE 94; RESP 14; RESP 17; TEMP 37.1; O2SAT 93; O2SAT 95
[2021-09-03] MEDS: magnesium oxide 400 mg tablet PO (08:05)
[2021-09-03] MEDS: pantoprazole DR 40 mg Tablet PO (08:05)
[2021-09-03] MEDS: metoprolol tartrate 50 mg Tablet PO (08:12)
[2021-09-03] MEDS: nystatin powder 15 gm Btl 1 APPLIC TOPICAL (08:13)
--- NOTE | 2021-09-03 08:21 | PM.DCS ---
Discharge Providers Date of Admission: 08/31/21 14:18 Date of Discharge: September 03, 2021 Attending Provider at Admission: Catarina Simpson MD Attending Provider at Discharge: Tadeo Lockwood MD Primary Care Provider: Sean Durand MD Diagnoses at Discharge Discharge Diagnosis (1) Degenerative disc disease, cervical: Status: Acute (2) DDD (degenerative disc disease), lumbar: Status: Acute (3) Lumbar spondylosis: Status: Acute (4) Lumbar stenosis with neurogenic claudication: Status: Chronic (5) Tobacco abuse: Status: Chronic Permanent problem details: 2 ppd all of her adult life, 45 + years. (6) Chronic pain: Status: Chronic Qualifiers: Chronic pain type: other chronic pain Qualified Code(s): G89.29 - Other chronic pain Permanent problem details: pain clinic in [facility] (7) Sleep apnea: Status: Chronic Permanent problem details: She chose not to treat with CPAP (8) Delirium: Status: Acute (9) Cervical spondylosis: Status: Acute Reason for Visit Reason for Visit: RECTAL BLEED/ GENERAL WEAKNESS/ CONFUSION Hospital Course Hospital Course Please see Dr. Simpson's H&P for detail note. Patient was admitted for management evaluation of metabolic encephalopathy related to dehydration and possible polypharmacy, accidental overdose on opioids. Her UA was unremarkable. Code 10 was called twice on day of admission, patient was very agitated and noncooperative. She required one-to-one supervision. With IV fluid hydration her mentation next day improved and after 2 days she was able to talk, she was back to baseline. Patient had no memory at all what she did at the time of admission. No signs of stroke or seizure. No signs of UTI. She remained hemodynamically stable. There was concern for rectal bleed, H&H did not drop significantly. I will give her referral to see Dr. Gutierrez for outpatient endoscopy. Patient asked to see Dr. Bella for her cervical and lower back pain. MRI spine was requested which did not show spinal cord compression. Dr. Bella recommended follow-up with Dr. Morse for pain management and see him in the clinic after 4 weeks. At the time of discharge I have discontinued her amitriptyline which she takes at bedtime and pregabalin. I have resumed her opioids and baclofen for now. Did nutrition counselor her and her son that she probably suffered from polypharmacy and accidental drug overdose. She should not take more than 4 tablets of hydrocodone a day, patient is happy that we have discontinued 2 of her medications to avoid drug interactions and side effects. Dr. Hood also evaluated the patient and recommended conservative management. She is suffering from delirium related to dehydration and polypharmacy. Physical Exam Narrative: Patient is awake and alert Nonfocal neuro exam Very calm and cooperative Euvolemic Abdomen soft No signs of UTI No signs of stroke or seizure S1, S2 Able to walk Son at the bedside Urinary Catheter Management: Ramirez: Cath Placed During This Visit: yes, but has since been removed by the nurse Reason for Continuing Indwelling Catheter: Acute Urinary Retention or Obstruction Urinary Catheter Date of Insertion: 08/31/21 Urinary Catheter Time of Insertion: 16:30 Date Urinary Catheter Removed: 09/02/21 Time Urinary Catheter Discontinued: 12:00 Discharge Data Studies Completed and Pending Completed Studies During Hospitalization Category Date Time Status CT abdomen pelvis wo con [id number] Stat Cat Scan 08/31/21 09:[address] head wo con* [id number] Stat Cat Scan 08/31/21 09:56 Completed XR chest 1V portable [id number] Stat Exams 08/31/21 09:56 Completed MR cervical spin wo con* [id number] Routine MRI 09/02/21 12:02 Completed MR lumbar spine wo con* [id number] Routine MRI 09/02/21 12:02 Completed US venous duplex lower extremity bilat [CV venous Ultrasound 09/01/21 11:37 [place] [id number]] Routine Pending at discharge Category Date Time Status Urine Culture Routine Lab 09/01/21 12:35 Results Radiology Impressions Abdomen/Pelvis CT 08/31/21 09:33 IMPRESSION: 1. No acute abdominal or pelvic abnormalities are identified. 2. Stable LEFT hepatic cyst and bilateral adrenal adenomas. 3. No GI tract obstruction. 4. Moderate atherosclerotic plaque abdominal aorta. Chest X-Ray 08/31/21 09:56 IMPRESSION: 1. No acute cardiopulmonary finding. No change. Head CT 08/31/21 09:56 IMPRESSION: 1. No acute intracranial hemorrhage or edema. 2. Mild atrophy and small vessel ischemic disease. 3. Remote lacunar infarct RIGHT basal ganglia. Cervical Spine MRI 09/02/21 12:02 IMPRESSION: 1. Straightening of the normal cervical lordosis. Slight anterolisthesis C4 on C5 and C6 on C7. 2. Mild central canal stenosis C4-C5 and C5-C6 unchanged compared to previous. 3. Bony foraminal narrowing severe at LEFT C5-C6 unchanged. 4. Otherwise mild to moderate bony foraminal narrowing described above. 5. Overall no significant interval changes since April 24, 2021. Lumbar Spine MRI 09/02/21 12:02 IMPRESSION: 1. Mild lumbar curve convex LEFT. No acute compression. 2. Stable retrolisthesis L1 on L2 and L2 on L3. 3. Mild narrowing of the thecal sac L1-L2 with moderate narrowing of the thecal sac L2-L3 and L3-L4 with crowding of the cauda equina nerve rootlets. Prominent dorsal epidural fat contributes to stenosis. This is stable compared to previous. 4. RIGHT foraminal protrusion L3-L4 impinges the exiting RIGHT L3 nerve root. 5. Mild RIGHT L4-L5 foraminal narrowing with slight impingement on the exiting RIGHT L4 nerve root. 6. Moderate LEFT L5-S1 foraminal narrowing impinges the exiting LEFT L5 nerve root. 7. Overall no remarkable changes compared to May 13, 2021. Laboratory Results WBC 8.1 10^3/uL (4.0-10.0) 09/03/21 04:50 RBC 3.10 10^6/uL (4.1-5.3) L 09/03/21 04:50 Hgb 9.6 g/dL (11.5-15.3) L 09/03/21 04:50 Hct 28.0 % (37.0-47.0) L 09/03/21 04:50 MCV 90.3 fl (81-99) 09/03/21 04:50 MCH 31.0 pg (28.0-34.0) 09/03/21 04:50 MCHC 34.3 g/dL (30.0-36.0) 09/03/21 04:50 RDW 15.0 % (12.1-15.1) 09/03/21 04:50 Plt Count 202 10^3/cmm (130-400) 09/03/21 04:50 MPV 10.2 fL (7.4-10.4) 09/03/21 04:50 Neut % (Auto) 64.7 % 09/03/21 04:50 Lymph % (Auto) 22.0 % 09/03/21 04:50 [place] % (Auto) 10.0 % 09/03/21 04:50 Eos % (Auto) 2.1 % 09/03/21 04:50 Baso % (Auto) 0.7 % 09/03/21 04:50 Neut # (Auto) 5.23 10^3/uL (1.8-7.7) 09/03/21 04:50 Lymph # (Auto) 1.8 10^3/uL (0.8-4.8) 09/03/21 04:50 [place] # (Auto) 0.8 10^3/uL (0.2-0.9) 09/03/21 04:50 Eos # (Auto) 0.2 10^3/uL (0.0-0.8) 09/03/21 04:50 Baso # (Auto) 0.1 10^3/uL (0.0-0.1) 09/03/21 04:50 Nucleated RBC % (auto) 0 % 09/03/21 04:50 Nucleated RBCs # 0.0 /100WBC 09/03/21 04:50 PT 13.20 SECONDS (12.1-14.9) 08/31/21 11:09 INR 0.97 (0.8-1.2) 08/31/21 11:09 APTT 28.2 SECONDS (23.9-36.7) 08/31/21 11:09 D-Dimer 1.14 ug/mIFEU (0-0.59) H 09/01/21 22:42 Specimen Type Arterial 08/31/21 09:54 Sample Site Radial, right 08/31/21 09:54 ABG pH 7.44 (7.35-7.45) 08/31/21 09:54 ABG pCO2 42.7 mmHg (35-45) 08/31/21 09:54 ABG pO2 130.0 mmHg (80.0-100.0) H 08/31/21 09:54 ABG HCO3 28.6 mmol/L (22-26) H 08/31/21 09:54 ABG O2 Saturation 98.3 08/31/21 09:54 ABG Base Excess 3.9 mmol/L (-2.0-2.0) H 08/31/21 09:54 Ismael Test Pos 08/31/21 09:54 A-a O2 Gradient 5.7 mmHg (5-10) 08/31/21 09:54 Hematocrit 32.0 % (37-47) L 08/31/21 09:54 Hgb O2 Saturation 96.3 % (95-100) 08/31/21 09:54 Carboxyhemoglobin 0.6 %THgb (0.4-20.1) 08/31/21 09:54 Methemoglobin 1.4 % (0.4-1.5) 08/31/21 09:54 Total Hemoglobin 10.4 g/dL (12-16) L 08/31/21 09:54 Sodium 148.0 mmol/L (131-143) H 08/31/21 09:54 Potassium 3.5 mmol/L (3.5-5.0) 08/31/21 09:54 Glucose 117.0 mg/dL (70-115) H 08/31/21 09:54 Ionized Calcium 1.2 mmol/L (1.1-1.4) 08/31/21 09:54 O2 Delivery Device Nc 08/31/21 09:54 O2 Liters/Min 3.0 % 08/31/21 09:54 FiO2 32.0 % 08/31/21 09:54 Rest Room Matron ID [place] 08/31/21 09:54 Sodium 141 mmol/L (136-145) 09/03/21 04:50 Potassium 3.4 mmol/L (3.5-5.1) L 09/03/21 04:50 Chloride 106 mmol/L (98-107) 09/03/21 04:50 Carbon Dioxide 22 mmol/L (22-29) 09/03/21 04:50 Anion Gap 16.4 (5-19) 09/03/21 04:50 BUN 17 mg/dL (8-23) 09/03/21 04:50 Creatinine 0.5 mg/dL (0.5-0.9) 09/03/21 04:50 GFR Calculation Not Reportable 09/03/21 04:50 Glucose 95 mg/dL (65-115) 09/03/21 04:50 Calculated Osmolality 293 mOsm/kg (285-295) 09/03/21 04:50 Calcium 8.8 mg/dL (8.5-10.5) 09/03/21 04:50 Magnesium 2.3 mg/dL (1.7-2.3) 08/31/21 09:50 Total Bilirubin 0.3 mg/dL (0.15-1.2) 08/31/21 09:50 AST 30 U/L (0-32) 08/31/21 09:50 ALT 15 U/L (0-33) 08/31/21 09:50 Alkaline Phosphatase 82 IU/L (35-105) 08/31/21 09:50 Creatine Kinase 421 U/L (26-192) H* 09/01/21 04:39 Troponin T Gen 5 ng/L 13 ng/L (0-10) H 09/01/21 04:39 NT-Pro-B Natriuret Pep 203 pg/mL (0-125) H 08/31/21 09:50 Total Protein 6.6 g/dL (6.6-8.7) 08/31/21 09:50 Albumin 4.1 g/dL (3.5-5.2) 08/31/21 09:50 Globulin 2.5 g/dL (1.3-4.6) 08/31/21 09:50 Lipase 22 U/L (13-60) 08/31/21 09:50 TSH 0.92 uIU/mL (0.27-4.20) 09/01/21 04:39 Prolactin 9.01 ng/mL (4.8-23.3) 09/01/21 04:39 Urine Color Yellow (Yellow) 08/31/21 18:29 Urine Appearance Hazy (CLEAR) A 08/31/21 18:29 Urine pH 6 (5-7) 08/31/21 18:29 Ur Specific [place] 1.015 (1.005-1.030) 08/31/21 18:29 Urine Protein Trace (Negative) 08/31/21 18:29 Urine Glucose (UA) Norm (Normal) 08/31/21 18:29 Urine Ketones 2+ (Negative) H 08/31/21 18:29 Urine Blood Trace (Negative) H 08/31/21 18:29 Urine Nitrate Negative (Negative) 08/31/21 18:29 Urine Bilirubin Neg (Negative) 08/31/21 18:29 Prot Sulfosalicylic Acd Negative (Negative) 08/31/21 18:29 Urine Urobilinogen Norm mg/dL (Negative) 08/31/21 18:29 Ur Leukocyte Esterase Trace (Negative) H 08/31/21 18:29 Urine RBC 5-10 /hpf (0-2) H 08/31/21 18:29 Urine WBC 0-4 /hpf (0-5) H 08/31/21 18:29 Ur Squamous Epith Cells 0-4 /hpf (0-5) H 08/31/21 18:29 Ur Transition Epith Cell 0-4 /hpf 08/31/21 18:29 Amorphous Sediment 1+ /hpf 08/31/21 18:29 Urine Bacteria 1+ /hpf (NONE) H 08/31/21 18:29 Urine Mucus 1+ /hpf 08/31/21 18:29 Urine Opiates Screen Positive ng/mL (Negative) H 08/31/21 18:29 Ur Barbiturates Screen Negative ng/mL (Negative) 08/31/21 18:29 Ur Phencyclidine Scrn Negative ng/mL (Negative) 08/31/21 18:29 Ur Amphetamines Screen Negative ng/mL (Negative) 08/31/21 18:29 U Benzodiazepines Scrn Positive ng/mL (Negative) H 08/31/21 18:29 Urine Cocaine Screen Negative ng/mL (Negative) 08/31/21 18:29 U Marijuana (THC) Screen Negative ng/mL (Negative) 08/31/21 18:29 Ethyl Alcohol < 10 mg/dL (0-10) 08/31/21 09:50 Serum Ketones Negative (Negative) 08/31/21 09:50 Vitals Last Vital Signs Temp 97.4 F L 09/03/21 05:16 Pulse 79 09/03/21 05:16 Resp 16 09/03/21 05:16 BP 137/68 09/03/21 05:16 Pulse Ox 95 09/03/21 05:16 O2 Del Method 09/03/21 05:16 O2 Flow Rate 2 08/31/21 20:00 Discharge Plan Discharge Patient Disposition: Home Condition: Stable Prescriptions: Continued bumetanide 1 mg tablet 2 mg PO BID Qty: 360 3RF levalbuterol tartrate [Xopenex HFA] 45 mcg/actuation HFA aerosol inhaler 2 inh inhalation Q6H PRN (Reason: shortness of breath or wheezing) Qty: 15 3RF hydrocodone-acetaminophen 10-325 mg tablet 1 tab PO Q6H PRN (Reason: Pain) spironolactone 25 mg tablet 25 mg PO QAM Qty: 30 5RF albuterol sulfate 2.5 mg /3 mL (0.083 %) solution for nebulization 2.5 mg inhalation Q6H PRN (Reason: shortness of breath or wheezing) Qty: 90 1RF bupropion HCl 100 mg tablet sustained-release 12 hr 100 mg PO QAM Qty: 30 3RF guaifenesin 600 mg tablet extended release 12hr 600 mg PO Q12H PRN (Reason: congestion) Qty: 60 5RF magnesium oxide 400 mg magnesium capsule 400 mg PO DAILY lisinopril 40 mg tablet 40 mg PO DAILY Qty: 90 3RF nystatin 100,000 unit/gram powder 1 applic topical BID Qty: 60 3RF Rx Instructions: use on abdomen/groin area. metoprolol tartrate 50 mg tablet 50 mg PO BID Qty: 180 2RF Stiolto Respimat 2.5-2.5 mcg/actuation mist 2 puff inhalation DAILY Qty: 4 0RF baclofen 20 mg Tablet 20 mg PO BID PRN (Reason: Spasms) atorvastatin 20 mg tablet 20 mg PO DAILY sulfasalazine 500 mg tablet 1,000 mg PO BID Iron (ferrous sulfate) 325 mg (65 mg iron) Tablet 325 mg PO DAILY PRN (Reason: WEAKNESS) ibuprofen 800 mg tablet 800 mg PO DAILY PRN (Reason: Pain) hydroxychloroquine [Plaquenil] 200 mg tablet 200 mg PO BID pantoprazole 40 mg tablet,delayed release (DR/EC) 40 mg PO DAILY Qty: 90 8RF Discontinued pregabalin 100 mg capsule 100 mg PO BID amitriptyline 50 mg tablet 50 - 100 mg PO BEDTIME PRN (Reason: sleep and chronic pain) Discharge Orders: Discharge Order (Routine); Ordered 09/03/21 Ordered By: Tadeo Lockwood Referrals: Sean Durand MD [Primary Care Provider] - 09/23/21 2:00 pm Abdullahi Rivers PA-C [Physician Porcelain Enamel Laborer] - 10/01/21 9:45 am (F/U 4 wks after Pain Clinic Consultation with Dr Morse for Neck and Back Pain) Antwan Morse MD [Physician] - 1-3 days (WILL CALL PT WITH APPT INFO ) Naseem Gutierrez DO [Physician] - 6 Weeks ([facility]) Patient Instructions: Degenerative Disc Disease (DC), Opioid Safety Discharge Attestations Time Spent in Discharge Care*: less than 30 min Quality Metrics Clinical Quality Measures [ No reported AMI, CVA or VTE this stay] Coding Level of Care Code Acute Chg FW DC note Diagnoses Degenerative disc disease, cervical M50.30 DDD (degenerative disc disease), lumbar M51.36 Lumbar spondylosis M47.816 Lumbar stenosis with neurogenic claudication M48.062 Tobacco abuse Z72.0 Chronic pain G89.29 Chronic pain type: other chronic pain Sleep apnea G47.30 Delirium R41.0 Cervical spondylosis M47.812
--- NOTE | 2021-09-03 10:04 | PC.SOCIAL ---
IMM Update Imm updated with patient, copy of page 2 provided. Patient verbalized understanding. Copy initialed, dated and timed, placed in chart.
[2021-09-03] MEDS: fluticasone nasal spray 16gm Btl 1 SPRAY NASAL (11:16)
[2021-09-03] MEDS: lidocaine 5% Patch 1 PATCH TOPICAL (11:17)
== END 2021-09-03 11:36 | disposition home or self-care (01) | DRG 640 ==
LOC: ER 13:32 → MEDSURG 14:18
PROVIDERS: Admitting Provider Hospitalist; Emergency Provider Family Medicine; PCP Family Medicine Adult Medicine; Visit Provider Internal Medicine
DX: E86.0 Dehydration (principal); G92.8 Other toxic encephalopathy; G93.41 Metabolic encephalopathy; K62.5 Hemorrhage of anus and rectum; I50.32 Chronic diastolic (congestive) heart failure; F11.93 Opioid use, unspecified with withdrawal; T40.2X1A Poisoning by other opioids, accidental (unintentional), initial encounter; T50.915A Adverse effect of multiple unspecified drugs, medicaments and biological substances, initial encounter; G47.30 Sleep apnea, unspecified; M48.062 Spinal stenosis, lumbar region with neurogenic claudication; M47.816 Spondylosis without myelopathy or radiculopathy, lumbar region; M47.812 Spondylosis without myelopathy or radiculopathy, cervical region; M50.30 Other cervical disc degeneration, unspecified cervical region; G89.29 Other chronic pain; I11.0 Hypertensive heart disease with heart failure; G25.81 Restless legs syndrome; J43.2 Centrilobular emphysema; M06.042 Rheumatoid arthritis without rheumatoid factor, left hand; M06.041 Rheumatoid arthritis without rheumatoid factor, right hand; F17.210 Nicotine dependence, cigarettes, uncomplicated; B35.4 Tinea corporis; R82.81 Pyuria; R00.0 Tachycardia, unspecified; I35.1 Nonrheumatic aortic (valve) insufficiency; R29.6 Repeated falls; F32.A Depression, unspecified; F41.9 Anxiety disorder, unspecified; Z85.44 Personal history of malignant neoplasm of other female genital organs; Z92.3 Personal history of irradiation; Z90.710 Acquired absence of both cervix and uterus; Z79.899 Other long term (current) drug therapy
CPT/HCPCS: 36415; 36600; 51702; 70450; 71045; 72141; 72148; 74176; 80048; 80051; 80053; 80306; 80307; 81001; 82009; 82274; 82330; 82550; 82805; 83690; 83735; 83880; 84146; 84443; 84484; 85025; 85378; 85610; 85730; 87086; 93005; 93970; 94640; 94760; 96372; 96374; 97116; 97161; 97530; 99285; J0360; J0696; J1200; J1630; J1650; J2060; J3490; J7030

== ENCOUNTER → 2021-10-01 09:23 | Outpatient (BNVA) | payer MEDICARE, MEDICAID, SELFPAY | PROVIDERS: PCP Family Medicine Adult Medicine; Visit Provider Physician Assistant | DX: M48.062 Spinal stenosis, lumbar region with neurogenic claudication (principal); M48.02 Spinal stenosis, cervical region | CPT/HCPCS: 99213 ==

== ENCOUNTER → 2021-10-15 12:57 | Outpatient (BNVA) | payer MEDICARE, MEDICAID, SELFPAY | PROVIDERS: PCP Family Medicine Adult Medicine; Visit Provider Internal Medicine Rheumatology | DX: M06.041 Rheumatoid arthritis without rheumatoid factor, right hand (principal); M06.042 Rheumatoid arthritis without rheumatoid factor, left hand; Z79.899 Other long term (current) drug therapy; M18.0 Bilateral primary osteoarthritis of first carpometacarpal joints | CPT/HCPCS: 99204 ==

== ENCOUNTER 2021-10-28 08:36 | Emergency (ER) | payer MEDICARE, MEDICAID, SELFPAY ==
[2021-10-28] VITALS (7 sets, daily range): BP systolic 111–124; BP diastolic 54–59; PULSE 72–82; RESP 16–20; TEMP 36.8; O2SAT 91–96; BMI 29.9
--- NOTE | 2021-10-28 08:56 | XRR_ITS ---
PROCEDURE INFORMATION: Exam: XR Chest Exam date and time: 10/28/2021 9:45 AM Age: 70 years old Clinical indication: Dyspnea TECHNIQUE: Imaging protocol: Radiologic exam of the chest. Views: 1 view. COMPARISON: CR XR chest 1V portable [id number] 08/31/2021 10:04 AM FINDINGS: Lungs: Unremarkable. No consolidation. Pleural spaces: Unremarkable. No pleural effusion. No pneumothorax. Heart/Mediastinum: Unremarkable. No cardiomegaly. Bones/joints: Unremarkable. XR/XR chest 1V portable [id number] IMPRESSION: No acute findings.
--- NOTE | 2021-10-28 08:56 | ECG_ITS ---
[facility] Test Date: 2021-10-28 Pat Name: Tatiana Alvarez Department: Room: Gender: Female Slasher Operator: : 1950 Requested By: Jose Luis Burgos Order Number: [id number] Shayy MD: Paulette Hernández M.D. Measurements Intervals Dickinson Rate: 76 P: 55 MO: 137 QRS: 39 QRSD: 90 T: 43 QT: 399 QTc: 450 Interpretive Statements SINUS RHYTHM Compared to ECG 09/01/2021 09:39:29 Sinus tachycardia no longer present Electronically Signed On 10-28-2021 12:46:16 CDT by Paulette Hernández M.D. [id number]
--- NOTE | 2021-10-28 10:20 | ED_ITS ---
HPI - SOB/Dyspnea General: Chief Complaint: Shortness of Breath/Dyspnea Stated Complaint: SOB Time Seen by Provider: 10/28/21 08:42 Source: patient and family Mode of arrival: ambulatory Limitations: no limitations History of Present Illness: HPI Narrative: This patient with a known history of COPD presents to our emergency department because of increasing shortness of breath she states has worsened over the last 2 weeks. States she just started reusing her home neb utilizer last week. She denies any fevers. She has had some upper airway congestion and sinus drainage. She denies chest pain, fevers, productive cough. She does cough but mostly nonproductive. She does not have a history of heart failure but states she has a leaky valve. She is never been admitted to the hospital for COPD. She has not seen her private physician. She is not been exposed to any illness that she is aware and is unimmunized against COVID-19. She is still smoking tobacco. She states that her dyspnea is markedly worsened with exertion. MD elicited complaint: shortness of breath Pertinent past history: COPD Timing: progressively worsening Exacerbating factors: exertion Relieving factors: bronchodilators Known history of: COPD Associated symptoms: Reports vomiting; Deny abdominal pain, chest pain, extremity pain, fever(s) or palpitations Review of Systems Const: Denies: fever(s) or chills Eyes: Denies: change in vision ENMT: Reports: dry mouth, nasal discharge and nasal congestion; Denies: throat pain or odynophagia Card: Denies: chest pain, palpitations, irregular heart rhythm or edema Resp: Reports: dyspnea, non-productive cough and wheezing GI: Reports: vomiting and diarrhea; Denies: abdominal pain, hematochezia or melena : Reports: oliguria; Denies: flank pain, difficulty voiding, dysuria or urinary frequency Musc: Reports: back pain; Denies: neck pain, extremity pain or extremity swelling Skin/Breast: Denies: rash or erythema Neuro: Denies: headache(s), numbness in extremities or weakness in extremities Psych: Denies: anxiety or depression All/Imm: Denies: urticaria or throat swelling PFS ED PFSH: Medical History Altered mental state Anxiety about health Aortic regurgitation mild to moderate Arm and leg movements, uncontrollable Atherosclerosis of coronary artery Bright red blood per rectum Chronic pain pain clinic in [facility] Congestive heart failure Diastolic COPD (chronic obstructive pulmonary disease) DDD (degenerative disc disease) GERD (gastroesophageal reflux disease) High risk medication use History of cancer of vulva s/p excision and radiation therapy History of PFTs 05/2020: normal spirometry and lung volumes; isolated gas transfer suggestive of pulmonary vascular disease Hypertension Lumbar spondylosis Lumbar stenosis with neurogenic claudication Osteoarthritis of both hands RLS (restless legs syndrome) Seronegative rheumatoid arthritis of both hands Sleep apnea She chose not to treat with CPAP Tobacco abuse 2 ppd all of her adult life, 45 + years. Surgical History H/O cataract extraction H/O hemorrhoidectomy H/O: hysterectomy Total Hysterectomy in 1970 History of appendectomy History of bilateral carpal tunnel release History of cardiac catheterization 07/2020: moderate left main, stenosis, FFR 0.94, no hemodynamically significant History of colon surgery History of colonoscopy 07/2021 History of hernia repair History of lung surgery S/P carpal tunnel release Family History Mother Diabetes Heart disease Hypertension Hyperchloremia Stroke Father Alcohol abuse Sister Dementia Stroke Social History Smoking and tobacco status: current every day smoker (up to 2 PPD) cigarettes Packs smoked per day: 2.5 Years cigarettes smoked: 60 [ Other cigarette details: 3ppd previously ] Quit status (tobacco): has tried quititng Second hand smoke exposure: No Alcohol intake: former Caregiver/support person: Yes Lives independently: Yes Household members: none Marital status: Highest education level completed: GED or Equivalent service: No Current occupational status: retired and disabled Pets and animals: No Current gender identity: Female 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 She is dyspneic with normal conversation but is able to talk in relatively complete sentences. Const: COMMON NORMALS: no acute distress and patient oriented x3 GENERAL APPEARANCE: cooperative NUTRITIONAL APPEARANCE: overweight HENMT: COMMON NORMALS: normocephalic and Normal nasal mucous membranes and turbinates present HEAD & SCALP: normocephalic NOSE: Normal nasal mucous membranes and turbinates present MOUTH: moist mucous membranes not abnormal Eye: COMMON NORMALS: Equal, round and reactive pupils present, EOMs intact bilaterally and conjunctivae normal CONJUNCTIVA: Yes conjunctivae normal PUPIL: Yes Equal, round and reactive pupils present Neck/C-Spine: COMMON NORMALS: full ROM, no lymphadenopathy, no JVD and No carotid bruits Chest: COMMONS NORMALS: normal inspection of the chest and normal palpation of entire chest wall Resp: COMMON NORMALS: No retractions and No use of accessory muscles EFFORT & INSPECTION: Yes symmetric chest movement AUSCULTATION: rhonchi and wheezes lower bilaterally Cardio: COMMON NORMALS: no JVD GI: COMMON NORMALS: Normal to inspection, nondistended, normoactive bowel sounds present, Soft to palpation and non-tender PALPATION: Yes Soft to palpation : COMMON NORMALS: Yes no CVA tenderness BLADDER/KIDNEY EXAM: Yes no CVA tenderness Back/Pelvis: COMMON NORMALS: no CVA tenderness, thoracic and lumbar spine normal to inspection, no thoracic nor lumbar tenderness and straight leg raise negative bilaterally Extremity: COMMON NORMALS: normal to inspection, full ROM, capillary refill normal, no calf tenderness and no pedal edema Neuro: COMMON NORMALS: patient oriented x3, moves all extremities, no focal motor deficits and no sensory deficits noted CRANIAL NERVES: Yes CN normal except as noted SPEECH: speech normal Psych: COMMON NORMALS: mental status grossly normal and Normal thought process present THOUGHT PROCESS: Normal thought process present Skin: COMMON NORMALS: no rashes or lesions noted, no wounds and turgor normal GENERAL SKIN EXAM: no rashes or lesions noted and turgor normal Course Reevaluation(s): Reevaluation #1: Patient subjectively states she feels better. Reevaluation reveals no rhonchi or wheezing at this time. I informed her that her COVID antigen was positive suggesting that this may have precipitated her increase in symptoms recently. That in addition to her continue to smoke tobacco. She is not oxygen requiring and has otherwise normal vital signs with a normal chest x-ray at this time. She is amenable to be treated at home with usual COPD measures, isolation and good return precautions. She voiced understanding of this recommendation and is agreeable to it. No indications for pack Slo-Bid for this patient given her duration of symptoms and uncertain benefit in ideal conditions. Time: 12:04 Vital Signs: Vital signs: Vital Signs Temperature 98.3 F 10/28/21 08:41 Pulse Rate 77 10/28/21 10:40 Respiratory Rate 20 H 10/28/21 10:40 Blood Pressure 111/58 10/28/21 10:14 Pulse Oximetry 91 10/28/21 10:40 Oxygen Delivery Me thod 10/28/21 10:40 MDM - SOB/Dyspnea Medical Decision Making Patient with longstanding COPD, continued tobacco use who presents with cough and increasing shortness of breath over the past 2 weeks. Evaluation here found her not to be hypoxic, chest x-ray is reassuring, COVID-positive antigen at this time. She has received normal COPD treatment with bronchodilators and steroids as it clinically improved as amenable to outpatient treatment which is appropriate given her clinical picture at this time. Medical Records I reviewed the patient's medical records. Lab Data I reviewed the patient's lab results. : 10/28/21 11:03 10/28/21 11:03 Labs/Radiology: Radiology Impressions Chest X-Ray 10/28/21 08:56 IMPRESSION: No acute findings. Laboratory Results WBC 5.1 10^3/uL (4.0-10.0) 10/28/21 11:03 RBC 3.58 10^6/uL (4.1-5.3) L 10/28/21 11:03 Hgb 10.9 g/dL (11.5-15.3) L 10/28/21 11:03 Hct 33.5 % (37.0-47.0) L 10/28/21 11:03 MCV 93.6 fl (81-99) 10/28/21 11:03 MCH 30.4 pg (28.0-34.0) 10/28/21 11:03 MCHC 32.5 g/dL (30.0-36.0) 10/28/21 11:03 RDW 15.1 % (12.1-15.1) 10/28/21 11:03 Plt Count 238 10^3/cmm (130-400) 10/28/21 11:03 MPV 10.5 fL (7.4-10.4) H 10/28/21 11:03 Neut % (Auto) 63.6 % 10/28/21 11:03 Lymph % (Auto) 28.1 % 10/28/21 11:03 Gray % (Auto) 7.1 % 10/28/21 11:03 Eos % (Auto) 0.2 % 10/28/21 11:03 Baso % (Auto) 0.2 % 10/28/21 11:03 Neut # (Auto) 3.23 10^3/uL (1.8-7.7) 10/28/21 11:03 Lymph # (Auto) 1.4 10^3/uL (0.8-4.8) 10/28/21 11:03 Gray # (Auto) 0.4 10^3/uL (0.2-0.9) 10/28/21 11:03 Eos # (Auto) 0.0 10^3/uL (0.0-0.8) 10/28/21 11:03 Baso # (Auto) 0.0 10^3/uL (0.0-0.1) 10/28/21 11:03 Nucleated RBC % (auto) 0 % 10/28/21 11:03 Nucleated RBCs # 0.0 /100WBC 10/28/21 11:03 PT 13.10 SECONDS (12.1-14.9) 10/28/21 11:03 INR 0.96 (0.8-1.2) 10/28/21 11:03 APTT 24.5 SECONDS (23.9-36.7) 10/28/21 11:03 Sodium 144 mmol/L (136-145) 10/28/21 11:03 Potassium 3.6 mmol/L (3.5-5.1) 10/28/21 11:03 Chloride 104 mmol/L (98-107) 10/28/21 11:03 Carbon Dioxide 23 mmol/L (22-29) 10/28/21 11:03 Anion Gap 20.6 (5-19) H 10/28/21 11:03 BUN 26 mg/dL (8-23) H 10/28/21 11:03 Creatinine 1.1 mg/dL (0.5-0.9) H 10/28/21 11:03 GFR Calculation Not Reportable 10/28/21 11:03 Glucose 115 mg/dL (65-115) 10/28/21 11:03 Calculated Osmolality 304 mOsm/kg (285-295) H 10/28/21 11:03 Calcium 10.1 mg/dL (8.5-10.5) 10/28/21 11:03 Total Bilirubin 0.3 mg/dL (0.15-1.2) 10/28/21 11:03 AST 41 U/L (0-32) H 10/28/21 11:03 ALT 23 U/L (0-33) 10/28/21 11:03 Alkaline Phosphatase 93 U/L (35-105) 10/28/21 11:03 NT-Pro-B Natriuret Pep 214 pg/mL (0-125) H 10/28/21 11:03 Total Protein 7.3 g/dL (6.6-8.7) 10/28/21 11:03 Albumin 3.7 g/dL (3.5-5.2) 10/28/21 11:03 Globulin 3.6 g/dL (1.3-4.6) 10/28/21 11:03 Urine Opiates Screen Negative ng/mL (Negative) 10/28/21 11:37 Ur Barbiturates Screen Negative ng/mL (Negative) 10/28/21 11:37 Ur Phencyclidine Scrn Negative ng/mL (Negative) 10/28/21 11:37 Ur Amphetamines Screen Negative ng/mL (Negative) 10/28/21 11:37 U Benzodiazepines Scrn Positive ng/mL (Negative) H 10/28/21 11:37 Urine Cocaine Screen Negative ng/mL (Negative) 10/28/21 11:37 U Marijuana (THC) Screen Negative ng/mL (Negative) 10/28/21 11:37 SARS-CoV-2 Ag (Rapid) Positive (Negative) H 10/28/21 10:28 EKG Data EKG 1: I personally reviewed and interpreted this EKG as follows: Interpretation: EKG reveals ventricular rate of 76 bpm. Normal intervals, normal axis, normal QTC duration. No acute ST-T wave changes noted at this time. Discharge Plan Discharge Patient Disposition: Home Clinical Impression: COPD (chronic obstructive pulmonary disease), COVID-19 Condition: Stable Prescriptions: New prednisone 20 mg tablet 20 mg PO BID 7 Days Qty: 14 0RF ProAir HFA 90 mcg/actuation HFA aerosol inhaler 2 inh inhalation Q4H PRN (Reason: shortness of breath or wheezing) Qty: 8.5 0RF No Action levalbuterol tartrate [Xopenex HFA] 45 mcg/actuation HFA aerosol inhaler 2 inh inhalation Q6H PRN (Reason: shortness of breath or wheezing) Qty: 15 3RF hydroxychloroquine [Plaquenil] 200 mg tablet 200 mg PO BID Qty: 60 3RF sulfasalazine 500 mg tablet 1,000 mg PO BID Qty: 120 3RF spironolactone 25 mg tablet 25 mg PO QAM Qty: 30 5RF albuterol sulfate 2.5 mg /3 mL (0.083 %) solution for nebulization 2.5 mg inhalation Q6H PRN (Reason: shortness of breath or wheezing) Qty: 90 1RF guaifenesin 600 mg tablet extended release 12hr 600 mg PO Q12H PRN (Reason: congestion) Qty: 60 5RF clobetasol 0.05 % cream 1 applic topical BID 14 Days Qty: 45 0RF Rx Instructions: use twice daily for two weeks only and then twice a week after that. ibuprofen 800 mg tablet 800 mg PO DAILY PRN (Reason: Pain) Qty: 30 3RF vitamin B complex [B Complex-Vitamin B12] Tablet 1 tab PO DAILY Complete MV Adult 50 Plus 0.4 mg-300 mcg- 250 mcg tablet 1 tab PO DAILY buspirone 5 mg tablet 5 mg PO TID Qty: 90 1RF bumetanide 1 mg tablet 2 mg PO DAILY Qty: 180 3RF hydroxyzine HCl 50 mg tablet 50 mg PO BID PRN (Reason: sleep) Qty: 30 3RF magnesium oxide 400 mg magnesium capsule 400 mg PO DAILY lisinopril 40 mg tablet 40 mg PO DAILY Qty: 90 3RF nystatin 100,000 unit/gram powder 1 applic topical BID Qty: 60 3RF Rx Instructions: use on abdomen/groin area. metoprolol tartrate 50 mg tablet 50 mg PO BID Qty: 180 2RF Stiolto Respimat 2.5-2.5 mcg/actuation mist 2 puff inhalation DAILY Qty: 4 0RF bupropion HCl 100 mg tablet sustained-release 12 hr 100 mg PO QAM Qty: 30 2RF atorvastatin 20 mg tablet 20 mg PO DAILY Iron (ferrous sulfate) 325 mg (65 mg iron) Tablet 325 mg PO DAILY PRN (Reason: WEAKNESS) pantoprazole 40 mg tablet,delayed release (DR/EC) 40 mg PO DAILY Qty: 90 8RF Discharge Orders: Discharge ED (Routine); Ordered 10/28/21 Ordered By: Stanley Willis Referrals: Sean Durand MD [Primary Care Provider] - Discharge Diet: Usual diet Discharge Activity: Increase activity as tolerated Patient Instructions: Opioid Safety, Pain Management Activity Restrictions/Additional Instructions: ArrivedIsolate at home until symptoms have improved. Continue use your nebulizer, other usual medications in addition to the prednisone and the inhaler do not smoke cigarettes. You may return to this emergency department if it anytime your symptoms or not improving, worsen or new or other concerning symptoms develop otherwise follow-up with your regular doctor for routine care. Coding Level of Care Code ED Development Team Lead for Tracy Medrano Exam Comprehensive
[2021-10-28] MEDS: ipratropium-albuterol 3 mL Neb INHALATION (10:32)
--- NOTE | 2021-10-28 11:18 | ECG_ITS ---
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 Measurements Intervals [place] Rate: 76 P: 38 DE: 150 QRS: 30 QRSD: 94 T: 19 QT: 410 QTc: 461 Interpretive Statements SINUS RHYTHM Compared to ECG 10/28/2021 08:46:31 No significant changes Electronically Signed On 10-28-2021 12:45:47 CDT by Paulette Hernández M.D. [id number]
[2021-10-28 11:23] LABS: Basophils % 0.2 %; Eosinophils % 0.2 %; Hematocrit 33.5 % (37.0-47.0); Hemoglobin 10.9 g/dL (11.5-15.3); Lymphocytes # 1.4 10^3/uL (0.8-4.8); Lymphocytes % 28.1 %; Mean Corpuscular HGB Conc 32.5 g/dL (30.0-36.0); Mean Corpuscular Hemoglobin 30.4 pg (28.0-34.0); Mean Corpuscular Volume 93.6 fl (81-99); Mean Platelet Volume 10.5 fL (7.4-10.4); Monocytes # 0.4 10^3/uL (0.2-0.9); Monocytes % 7.1 %; Neutrophils # 3.23 10^3/uL (1.8-7.7); Neutrophils % 63.6 %; Nucleated Red Blood Cells % 0 %; Platelet Count 238 10^3/cmm (130-400); Red Blood Count 3.58 10^6/uL (4.1-5.3); Red Cell Distribution Width 15.1 % (12.1-15.1); White Blood Count 5.1 10^3/uL (4.0-10.0)
[2021-10-28] MEDS: nicotine 21 mg Patch 1 PATCH TRANSDERMA (11:23)
[2021-10-28] MEDS: sodium chloride 0.9% 1,000 ML 999 ML IV (11:24)
[2021-10-28 11:31] LABS: INR 0.96 (0.8-1.2)
[2021-10-28 11:32] LABS: Partial Thromboplastin Time 24.5 SECONDS (23.9-36.7)
[2021-10-28 11:46] LABS: SARS Covid-2 Antigen Positive (Negative)
[2021-10-28 11:48] LABS: Alanine Aminotransferase 23 U/L (0-33); Albumin Level 3.7 g/dL (3.5-5.2); Alkaline Phosphatase 93 U/L (35-105); Blood Urea Nitrogen 26 mg/dL (8-23); Calcium 10.1 mg/dL (8.5-10.5); Carbon Dioxide 23 mmol/L (22-29); Chloride 104 mmol/L (98-107); Globulin 3.6 g/dL (1.3-4.6); Glucose 115 mg/dL (65-115); NT Pro B Type Natriuretic Pept 214 pg/mL (0-125); Osmolality Calculated 304 mOsm/kg (285-295); Sodium 144 mmol/L (136-145); Total Bilirubin 0.3 mg/dL (0.15-1.2); Total Protein 7.3 g/dL (6.6-8.7)
[2021-10-28 11:51] LABS: Anion Gap 20.6 (5-19); Aspartate Amino Transferase 41 U/L (0-32); Potassium 3.6 mmol/L (3.5-5.1)
[2021-10-28 11:57] LABS: Amphetamines Screen Urine Negative (Negative); Barbiturates Screen Urine Negative (Negative); Benzodiazepines Screen Urine Positive (Negative); Cocaine Screen Urine Negative (Negative); Opiate Screen Urine Negative (Negative); PCP Screen Urine Negative (Negative); THC Screen Urine Negative (Negative)
[2021-10-28 12:14] LABS: Add Urine Microscopic? YES; Bilirubin Urine 2+ (Negative); Blood Urine Trace (Negative); Glucose Urine UA Norm (Normal); Ketones Urine 1+ (Negative); Leukocyte Esterase Urine Trace (Negative); Nitrate Urine Negative (Negative); Protein Urine Trace (Negative); Urine Appearance Clear (CLEAR); Urine Color Dark Yellow (Yellow); Urobilinogen Urine 1 mg/dL (Negative); pH Urine 5 (5-7)
[2021-10-28 12:16] LABS: Add Urine Culture? No; Amorphous Sediment Urine 1+ /hpf; Bacteria Urine TRACE /hpf; Mucus Urine 1+ /hpf; RBC Urine 0-4 /hpf (0-2)
== END 2021-10-28 12:33 | disposition home or self-care (01) ==
PROVIDERS: Emergency Provider Emergency Medicine; PCP Family Medicine Adult Medicine
DX: J44.9 Chronic obstructive pulmonary disease, unspecified (principal); U07.1 COVID-19; F17.210 Nicotine dependence, cigarettes, uncomplicated; I25.10 Atherosclerotic heart disease of native coronary artery without angina pectoris; I11.0 Hypertensive heart disease with heart failure; I50.9 Heart failure, unspecified; Z85.89 Personal history of malignant neoplasm of other organs and systems; Z92.3 Personal history of irradiation
CPT/HCPCS: 71045; 80053; 80306; 81001; 83880; 85025; 85610; 85730; 87426; 93005; 94640; 96361; 96374; 99285; J2930; J7030

== ENCOUNTER → 2021-11-11 10:00 | Outpatient (BNVA) | payer MEDICARE, MEDICAID, SELFPAY | PROVIDERS: PCP Family Medicine Adult Medicine; Visit Provider Internal Medicine Pulmonary Disease | DX: U07.1 COVID-19 (principal); J44.9 Chronic obstructive pulmonary disease, unspecified; Z71.6 Tobacco abuse counseling; Z71.89 Other specified counseling; Z72.0 Tobacco use; I35.1 Nonrheumatic aortic (valve) insufficiency | CPT/HCPCS: 71046 ==

== ENCOUNTER 2021-12-15 09:59 | Outpatient (CLI) | payer MEDICARE, MEDICAID, SELFPAY ==
[2021-12-15 10:29] LABS: Basophils % 0.6 %; Eosinophils # 0.1 10^3/uL (0.0-0.8); Hemoglobin 10.6 g/dL (11.5-15.3); Lymphocytes # 2.1 10^3/uL (0.8-4.8); Lymphocytes % 29.7 %; Mean Corpuscular HGB Conc 31.2 g/dL (30.0-36.0); Mean Corpuscular Volume 96.3 fl (81-99); Mean Platelet Volume 9.1 fL (7.4-10.4); Monocytes # 0.5 10^3/uL (0.2-0.9); Monocytes % 7.1 %; Neutrophils # 4.29 10^3/uL (1.8-7.7); Neutrophils % 61.3 %; Nucleated Red Blood Cells % 0 %; Platelet Count 314 10^3/cmm (130-400); Red Blood Count 3.53 10^6/uL (4.1-5.3); Red Cell Distribution Width 15.4 % (12.1-15.1)
[2021-12-15 10:46] LABS: Alanine Aminotransferase 12 U/L (0-33); Alkaline Phosphatase 86 U/L (35-105); Aspartate Amino Transferase 20 U/L (0-32); Creatine Phosphokinase 55 U/L (26-192); Globulin 3.4 g/dL (1.3-4.6); Total Bilirubin 0.2 mg/dL (0.15-1.2); Total Protein 7.4 g/dL (6.6-8.7)
[2021-12-16 13:02] LABS: Aldolase 3.1 U/L (< OR = 8.1)
== END 2021-12-15 10:00 | disposition home or self-care (01) ==
LOC: LAB 10:01
PROVIDERS: PCP Family Medicine Adult Medicine; Visit Provider Internal Medicine Rheumatology
DX: M06.041 Rheumatoid arthritis without rheumatoid factor, right hand (principal); M06.042 Rheumatoid arthritis without rheumatoid factor, left hand; Z79.899 Other long term (current) drug therapy; G89.29 Other chronic pain; M48.062 Spinal stenosis, lumbar region with neurogenic claudication; M47.816 Spondylosis without myelopathy or radiculopathy, lumbar region; M54.16 Radiculopathy, lumbar region; M47.812 Spondylosis without myelopathy or radiculopathy, cervical region; M50.90 Cervical disc disorder, unspecified, unspecified cervical region; M79.604 Pain in right leg; M79.605 Pain in left leg; F17.210 Nicotine dependence, cigarettes, uncomplicated
CPT/HCPCS: 80076; 82085; 82550; 82565; 85025; 86140; 99205

== ENCOUNTER → 2022-01-04 14:34 | Outpatient (BNVA) | payer MEDICARE, MEDICAID, SELFPAY | PROVIDERS: PCP Family Medicine Adult Medicine; Visit Provider Internal Medicine | DX: I35.1 Nonrheumatic aortic (valve) insufficiency (principal); I49.9 Cardiac arrhythmia, unspecified; G47.30 Sleep apnea, unspecified; I11.0 Hypertensive heart disease with heart failure; I50.32 Chronic diastolic (congestive) heart failure; F17.210 Nicotine dependence, cigarettes, uncomplicated | CPT/HCPCS: 99213 ==

== ENCOUNTER 2022-01-07 11:42 | Outpatient (CLI) | payer MEDICARE, MEDICAID, SELFPAY ==
--- NOTE | 2022-01-07 12:00 | CT_ITS ---
WS: [id number] LDCT LUNG CANCER SCREENING TECHNIQUE: Noncontrast CT of the chest with coronal and sagittal reformatted images. CLINICAL INFORMATION: F17.210 - Nicotine dependence, cigarettes, uncomplicated COMPARISON: CT January 13, 2021 DLP: 82.47 mGy.cm DIvol: Mean CTDIvol: 1.60 (mGy) All CT scans at [facility] use at least one of these dose optimization techniques: automat ed exposure control; mA and/or kV adjustment per patient size (includes targeted exams where dose is matched to clinical indication); or iterative reconstruction. FINDINGS: A few tiny calcified and partially calcified nodules similar to previous. No suspicious pulmonary par enchymal opacities. Atelectasis in the RIGHT middle lobe and lingula with bronchiectasis. Mild bronch iectasis both lower lobes. Slight hazy atelectasis LEFT lower lobe medially. Fibrosis in the lung api jalil. Aortic calcification. Coronary calciafication. No mediastinal or hilar lymphadenopathy. No axillary l ymphadenopathy. Stable LEFT adrenal adenoma measuring 1.7CM. Mild thickening RIGHT adrenal gland unchanged. LEFT hepa tic cyst dome of the liver measuring 1.9 CM. 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 This can be further evaluated with CTA. This may represent eccentric mural thrombus. Small esophageal hiatal hernia. CT/CT lung screening [id number] IMPRESSION:Small outpouching descending thoracic aorta likely pseudoaneurysm or focal eccentric mural thrombus along the descending thoracic aorta measuring 1 .3 x 1.4 cm appears unchanged since January 13, 2021. This can be further eval uated with CTA chest. LUNG-RADS: 2S-Benign Appearance or Behavior with Significant Findings FOLLOW UP: 12 Month: Continue annual screening with LDCT
== END 2022-01-07 11:43 | disposition home or self-care (01) ==
LOC: RAD 11:42
PROVIDERS: PCP Family Medicine Adult Medicine; Visit Provider Internal Medicine Pulmonary Disease
DX: Z12.2 Encounter for screening for malignant neoplasm of respiratory organs (principal); F17.210 Nicotine dependence, cigarettes, uncomplicated; G89.29 Other chronic pain
CPT/HCPCS: 71271

== ENCOUNTER 2022-02-25 08:16 | Outpatient (CLI) | payer MEDICARE, MEDICAID, SELFPAY ==
--- NOTE | 2022-02-25 08:30 | XR_ITS ---
WS: [id number] XR hip RT 2-3V wo/w pel* [id number] REASON FOR EXAM: fall right hip pain FINDINGS: No fracture. Right hip joint space is relatively well preserved. Mild to moderate subchondral sclerosis and small osteophytosis of the acetabulum. No significant abnormality the femoral head and neck, trochanter, or proximal femoral shaft. No soft tissue abnormality. XR/XR hip RT 2-3V wo/w pel* [id number] IMPRESSION: No acute abnormality.
== END 2022-02-25 08:17 | disposition home or self-care (01) ==
LOC: RAD 08:21
PROVIDERS: PCP Family Medicine Adult Medicine; Visit Provider Family Medicine Adult Medicine
DX: M25.551 Pain in right hip (principal); W19.XXXA Unspecified fall, initial encounter
CPT/HCPCS: 73502

== ENCOUNTER 2022-06-17 10:07 | Outpatient (CLI) | payer MEDICARE, MEDICAID, SELFPAY ==
--- NOTE | 2022-06-17 10:30 | CT_ITS ---
WS: [id number] LDCT LUNG CANCER SCREENING TECHNIQUE: Noncontrast CT of the chest with coronal and sagittal reformatted images. CLINICAL INFORMATION: R06.02 - Shortness of breath COMPARISON: None. DLP: 63.57 mGy.cm DIvol: Mean CTDIvol: 1.10 (mGy) All CT scans at [facility] use at least one of these dose optimization techniques: automat ed exposure control; mA and/or kV adjustment per patient size (includes targeted exams where dose is matched to clinical indication); or iterative reconstruction. FINDINGS: A few tiny calcified and partially calcified nodules similar to previous no new suspicious nodules. Subsegmental atelectasis and bronchiectasis in the lingula. Bronchiectasis in the RIGHT middle lobe. Subsegmental atelectasis in the RIGHT middle lobe and both lung bases. Aortic calcification. Coronary calcification. No mediastinal or hilar lymphadenopathy. No axillary ly mphadenopathy. Small esophageal hiatal hernia.Bilateral adrenal adenomas LEFT greater than RIGHT. LEFT measuring 18 mm. Stable 2.1 cm hepatic cyst unchanged. Stable small outpouching descending thoracic aorta likely p seudoaneurysm measuring 1.[address]/CT lung screening [id number] IMPRESSION: LUNG-RADS: 2-Benign Appearance or Behavior FOLLOW UP: 12 Month: Continue annual screening with LDCT
== END 2022-06-17 10:08 | disposition home or self-care (01) ==
LOC: RAD 10:14
PROVIDERS: PCP Nurse Practitioner Family; Visit Provider Internal Medicine Pulmonary Disease
DX: Z12.2 Encounter for screening for malignant neoplasm of respiratory organs (principal); F17.210 Nicotine dependence, cigarettes, uncomplicated; R06.02 Shortness of breath; R91.8 Other nonspecific abnormal finding of lung field
CPT/HCPCS: 71271

== ENCOUNTER → 2022-07-06 14:52 | Outpatient (BNVA) | payer MEDICARE, MEDICAID, SELFPAY | PROVIDERS: PCP Nurse Practitioner Family; Visit Provider Internal Medicine | DX: I49.9 Cardiac arrhythmia, unspecified (principal); Z72.0 Tobacco use; G47.30 Sleep apnea, unspecified; I35.1 Nonrheumatic aortic (valve) insufficiency; I11.0 Hypertensive heart disease with heart failure; I50.32 Chronic diastolic (congestive) heart failure; R07.89 Other chest pain | CPT/HCPCS: 99214 ==

== ENCOUNTER 2022-07-12 13:59 | Outpatient (CLI) | payer MEDICARE, MEDICAID, SELFPAY ==
--- NOTE | 2022-07-12 14:13 | XRR_ITS ---
PROCEDURE INFORMATION: Exam: XR Lumbosacral Spine Exam date and time: 07/12/2022 2:35 PM Age: 71 years old Clinical indication: Condition or disease; Stenosis, spinal; Lumbar region; Prior surgery; Surgery date: 6+ months; Surgery type: Hernia; Additional info: Lumbar radiculopathy, foraminal stenosis of lumbosacral region.No history of trauma or recent surgery is provided. TECHNIQUE: Imaging protocol: Radiologic exam of the lumbosacral spine. 3image(s) are provided. Views: 2 or 3 views. COMPARISON: MR lumbar spine wo con* [id number] 09/02/2021 2:33 PM FINDINGS: Bones/joints: Osseous alignment is maintained.No interval displaced fracture or dislocation is appreciated.There is slightly decreased bone mineralization overall. In the interval there is multilevel pedicular screw and vertical dominick fixation hardware as well as disc spacing fusion material and sacroiliac level screws L3 through S1. The hardware appears grossly intact overall. There is levocurvature of the lumbar spine similar overall. Symmetric appearance of the sacral arcuate lines and sacroiliac junctions are appreciated. There is some chronic disc space narrowing of the L1-L2 and L2-L3 levels along with slight retrolisthesis at the L2-L3 level similar overall. Soft tissues: No radiopaque foreign body or subcutaneous emphysema is appreciated. Vasculature: There are atherosclerotic vascular calcifications present. Other findings: No other significant interval changes are appreciated. XR/XR lumbar spine 2-3V* [id number] IMPRESSION: 1. There is interval multilevel surgical hardware appearing grossly intact with maintained alignment. 2. There is chronic disc degeneration of the L1-L2 and L2-L3 level similar overall. 3. Osseous alignment is maintained.No interval fracture or dislocation is appreciated.
== END 2022-07-12 14:00 | disposition home or self-care (01) ==
LOC: RAD 14:08
PROVIDERS: PCP Nurse Practitioner Family; Visit Provider Nurse Practitioner Family
DX: M54.16 Radiculopathy, lumbar region (principal); M51.37 Other intervertebral disc degeneration, lumbosacral region; M48.07 Spinal stenosis, lumbosacral region; Z98.890 Other specified postprocedural states
CPT/HCPCS: 72100

== ENCOUNTER 2022-07-26 07:33 | Outpatient (CLI) | payer MEDICARE, MEDICAID, SELFPAY ==
--- NOTE | 2022-07-26 08:00 | USCV_ITS ---
Tatiana Alvarez Age: 71 Gender: F : 1950 Exam Date: 07/26/2022 08:16 Ordering Phys: Marquis Strickland M.D ([email or web address]) Technologist: Alexa Cadena [place] [facility] [place]: chf, sob, aortic sclerosis BP: 108 / 62 HR: 58 Rhythm: Sinus Technical Quality: Adequate MEASUREMENTS (Male / Female) Normal Values 2D ECHO LV Diastolic Diameter PLAX 4.2 cm 4.2 - 5.9 / 3.9 - 5.3 cm LV Systolic Diameter PLAX 1.4 cm IVS Diastolic Thickness 1.3 cm 0.6 - 1.0 / 0.6 - 0.9 cm IVS Systolic Thickness 1.7 cm LVPW Diastolic Thickness 1.1 cm 0.6 - 1.0 / 0.6 - 0.9 cm LVPW Systolic Thickness 2.3 cm LVOT Diameter 2.1 cm LV Ejection Fraction 2D Teich 93.8 % LV Ejection Fraction MOD 2C 66.8 % LV Ejection Fraction 2C AL 68.6 % LA Diameter 3.3 cm LA Width 2.8 cm LA Height 4.2 cm RA Width 2.9 cm RA Height 3.9 cm Aorta at Sinotubular Diameter 2.5 cm IVC Diameter 1.1 cm M-MODE Aortic Annulus Diameter 3.4 cm LA Ao Ratio MM 1.1 DOPPLER AV Peak Velocity 161.0 cm/s LVOT Peak Velocity 118.0 cm/s AV Area Cont Eq vti 3.1 cm squared AV Area Cont Eq pk 2.6 cm squared MV Peak Velocity 121.0 cm/s MV Area PHT 2.9 cm squared Mitral E to A Ratio 0.6 MV E' Velocity 67.0 cm/s TR Peak Velocity 191.0 cm/s TR Peak Gradient 14.6 mmHg Right Atrial Pressure 5.0 mmHg Pulmonary Artery Systolic Pressu 19.6 mmHg PV Peak Velocity 84.0 cm/s RV Acceleration Time 0.1 s RV Ejection Time 0.3 s RV AcT/ET 0.3 FINDINGS Left Ventricle Left ventricle is normal in size. LV systolic function is normal with EF of 60 to 65%. No regional wall motion abnormalities are seen. Grade 1 diastolic dysfunction Right Ventricle Normal in size and function Right Atrium Normal in size Left Atrium Normal in size Mitral Valve Structurally normal mitral valve. Trace mitral regurgitation. Aortic Valve Aortic valve is thickened and calcified. Mild aortic regurgitation. Tricuspid Valve Mild tricuspid regurgitation. Pulmonary artery systolic pressure is normal Pulmonic Valve Not well-visualized Pericardium Normal Aorta Normal in size IVC Appears to be normal CONCLUSIONS LV systolic function is normal with EF of 60 to 65%. Grade 1 diastolic dysfunction. Trace mitral regurgitation Aortic valve is thickened and calcified. Mild aortic regurgitation Mild tricuspid regurgitation. Compared to prior echocardiogram from 2020, no significant changes are seen. Marquis Strickland MD (Electronically Signed) Final Date: 31 July 2022 15:10 S
== END 2022-07-26 07:34 | disposition home or self-care (01) ==
LOC: RAD 07:35
PROVIDERS: PCP Nurse Practitioner Family; Visit Provider Internal Medicine
DX: I35.1 Nonrheumatic aortic (valve) insufficiency (principal); I50.9 Heart failure, unspecified; R06.02 Shortness of breath
CPT/HCPCS: 93306

== ENCOUNTER → 2022-08-02 13:53 | Outpatient (BNVA) | payer MEDICARE, MEDICAID, SELFPAY | PROVIDERS: PCP Nurse Practitioner Family; Visit Provider Internal Medicine Rheumatology | DX: M06.041 Rheumatoid arthritis without rheumatoid factor, right hand (principal); M06.042 Rheumatoid arthritis without rheumatoid factor, left hand; M19.90 Unspecified osteoarthritis, unspecified site; Z79.899 Other long term (current) drug therapy | CPT/HCPCS: 80076; 82565; 85025; 86140 ==

== ENCOUNTER → 2022-08-04 12:54 | Outpatient (BNVA) | payer MEDICARE, MEDICAID, SELFPAY | PROVIDERS: PCP Nurse Practitioner Family; Visit Provider Internal Medicine Rheumatology | DX: Z79.899 Other long term (current) drug therapy (principal); M06.041 Rheumatoid arthritis without rheumatoid factor, right hand; M06.042 Rheumatoid arthritis without rheumatoid factor, left hand | CPT/HCPCS: 36415; 80076; 82310; 82565; 83735; 84100; 84132; 85025; 86140; 99214 ==

== ENCOUNTER → 2022-09-20 15:20 | Outpatient (BNVA) | payer MEDICARE, MEDICAID, SELFPAY | PROVIDERS: PCP Family Medicine Adult Medicine; Visit Provider Obstetrics & Gynecology | DX: Z85.44 Personal history of malignant neoplasm of other female genital organs (principal) | CPT/HCPCS: 87624 ==

== ENCOUNTER 2022-09-27 06:00 | Outpatient (RCR) | payer MEDICARE, MEDICAID, SELFPAY | END 2022-10-07 23:59 | disposition home or self-care (01) | LOC: APT 06:00 | PROVIDERS: PCP Family Medicine Adult Medicine; Visit Provider Nurse Practitioner Family | DX: G89.4 Chronic pain syndrome (principal) | CPT/HCPCS: 97110; 97112; 97161; 97530 ==

== ENCOUNTER 2022-10-01 06:36 | Outpatient (CLI) | payer MEDICARE, MEDICAID, SELFPAY ==
--- NOTE | 2022-10-01 07:00 | US_ITS ---
WS: [id number] US pelvic complete* [id number] HISTORY: R10.2 - Pelvic and perineal pain COMPARISON: None available. Only transabdominal imaging is performed. Patient is status post hysterectomy. No midline mass. No in creased soft tissue. Neither ovary is identified. No adnexal masses. No free fluid. IMPRESSION: 1. Prior hysterectomy. 2. No midline mass or fluid. 3. Neither ovary is identified.
--- NOTE | 2022-10-01 07:45 | US_ITS ---
WS: [id number] Complete ABDOMINAL ULTRASOUND HISTORY: R10.2 - Pelvic and perineal pain, abdominal pain. COMPARISON: None available. Liver: 13.2 cm in length. Normal size liver. There is a slightly lobulated cystic mass toward the khushi phragm measuring 1.6 x 2.8 x 1.4 cm. No solid mass or bile duct dilatation. Portal Vein: Normal hepatopetal flow with monophasic waveform. Gallbladder: Normally distended gallbladder with no stones or wall thickening. CBD: 0.7 cm Pancreas: Partially obscured by bowel gas but otherwise negative. Right kidney: 9.3 cm x 5.2 x 5.0 cm. Cortex:1.0 cm. Normal size and echogenicity. No hydronephrosis or mass. Left kidney: 9.9 cm x 5.0 cm x 4.7 cm. Cortex: 1.1 cm. Normal size kidney. Cortical cyst upper pole measures 1.4 x 1.2 x 1.2 cm. No hydronephrosis. Spleen: Mildly heterogeneous spleen. Numerous calcified granulomas are noted. Aorta and IVC: Unremarkable abdominal aorta and IVC. Impression: 1. Normal gallbladder. 2. Hepatic cyst measures 1.6 x 2.8 x 1.4 cm. 3. LEFT renal cyst 1.4 x 1.2 x 1.2 cm.
== END 2022-10-01 06:37 | disposition home or self-care (01) ==
LOC: RAD 06:39
PROVIDERS: PCP Nurse Practitioner Family; Visit Provider Obstetrics & Gynecology
DX: R10.2 Pelvic and perineal pain (principal); K76.89 Other specified diseases of liver; N28.1 Cyst of kidney, acquired; Z90.710 Acquired absence of both cervix and uterus
CPT/HCPCS: 76700; 76856

== ENCOUNTER 2022-10-08 06:00 | Outpatient (RCR) | payer MEDICARE, MEDICAID, SELFPAY | END 2022-11-06 23:59 | disposition home or self-care (01) | LOC: APT 06:00 | PROVIDERS: PCP Nurse Practitioner Family; Visit Provider Nurse Practitioner Family | DX: G89.4 Chronic pain syndrome (principal) | CPT/HCPCS: 97110; 97112; 97530 ==

== ENCOUNTER 2022-10-15 07:08 | Outpatient (CLI) | payer MEDICARE, MEDICAID, SELFPAY ==
--- NOTE | 2022-10-15 07:18 | MM_ITS ---
WS: [id number] Bilateral screening 3D tomosynthesis digital mammogram, 10/15/2022 Clinical Data: Z12.39 - Encounter for other screening for malignant neop... Comparison: 01/22/2021, 11/28/2019, 10/04/2018, 06/07/2017, 01/08/2016, 12/11/2014, 10/18/2013, 06/27/2012, 06/28/2011, 07/10/2009, 07/31/2008. Findings: The breast parenchymal pattern shows fibroglandular tissue. No spiculated masses or clustered calcifi cations are seen. There are no secondary signs of carcinoma. Impression: 1. Negative bilateral mammogram unchanged. 2. Recommend annual screening mammograms. MM/[place] [id number] BIRADS: 1-Negative FOLLOW UP: 1 Year Follow-up The CAD order checker packer processer was used.
== END 2022-10-15 07:09 | disposition home or self-care (01) ==
PROVIDERS: PCP Nurse Practitioner Family; Visit Provider Obstetrics & Gynecology
DX: Z12.31 Encounter for screening mammogram for malignant neoplasm of breast (principal)
CPT/HCPCS: 77063; 77067

== ENCOUNTER → 2022-10-27 14:13 | Outpatient (BNVA) | payer MEDICARE, MEDICAID, SELFPAY | PROVIDERS: PCP Nurse Practitioner Family; Visit Provider Internal Medicine Rheumatology | DX: Z79.899 Other long term (current) drug therapy (principal); M06.041 Rheumatoid arthritis without rheumatoid factor, right hand; M06.042 Rheumatoid arthritis without rheumatoid factor, left hand | CPT/HCPCS: 36415; 80076; 82565; 85025; 86140; 99214 ==

== ENCOUNTER → 2022-11-02 09:17 | Outpatient (BNVA) | payer MEDICARE, MEDICAID, SELFPAY | PROVIDERS: PCP Nurse Practitioner Family; Referring Provider Obstetrics & Gynecology; Visit Provider Surgery | DX: K64.9 Unspecified hemorrhoids (principal) | CPT/HCPCS: 99203 ==

== ENCOUNTER 2022-11-07 06:00 | Outpatient (RCR) | payer MEDICARE, MEDICAID, SELFPAY | END 2022-12-07 23:59 | disposition home or self-care (01) | LOC: APT 06:00 | PROVIDERS: PCP Nurse Practitioner Family; Visit Provider Nurse Practitioner Family | DX: G89.4 Chronic pain syndrome (principal) | CPT/HCPCS: 97110; 97530 ==

== ENCOUNTER 2023-01-07 07:12 | Outpatient (CLI) | payer MEDICARE, MEDICAID, SELFPAY ==
--- NOTE | 2023-01-07 07:32 | XR_ITS ---
WS: [id number] Lumbar spine, 3 views, 01/07/2023 Clinical Data: LUMBAR RADICULOPATHY/DISC DEGENERATION,LUMBOSACRAL Comparison: Lumbar spine, 07/12/2022 Findings: There is a posterior lumbosacral fusion from L3-S1. There are disc spacers at L3-L4, L4-L5 and L5-S1. There are oblique screws fusing the SI joints. There is degenerative disc narrowing at L1-L2 and L2- L3 with minimal posterior subluxation of L1 on L2 and L2 on L3 unchanged. There is a levoscoliosis. There are calcifications in the wall of the abdominal aorta but no aneurysm . Impression: Stable L3-S1 posterior lumbosacral fusion.
== END 2023-01-07 07:13 | disposition home or self-care (01) ==
PROVIDERS: PCP Nurse Practitioner Family; Visit Provider Nurse Practitioner Family
DX: M54.16 Radiculopathy, lumbar region (principal); M51.37 Other intervertebral disc degeneration, lumbosacral region
CPT/HCPCS: 72100

== ENCOUNTER → 2023-01-11 13:35 | Outpatient (BNVA) | payer MEDICARE, MEDICAID, SELFPAY | PROVIDERS: PCP Nurse Practitioner Family; Visit Provider Internal Medicine | DX: I49.9 Cardiac arrhythmia, unspecified (principal); R07.9 Chest pain, unspecified; Z72.0 Tobacco use; G47.30 Sleep apnea, unspecified; I35.1 Nonrheumatic aortic (valve) insufficiency; I50.32 Chronic diastolic (congestive) heart failure | CPT/HCPCS: 99214 ==

== ENCOUNTER 2023-04-05 06:49 | Outpatient (CLI) | payer MEDICARE, MEDICAID, SELFPAY ==
--- NOTE | 2023-04-05 07:15 | CT_ITS ---
WS: [id number] CT NECK WITH CONTRAST HISTORY: CHRONIC LARYNGITIS/PAIN IN THROAT TECHNIQUE: Contiguous 2 mm axial images are performed through the neck with intravenous contrast. Sag ittal and coronal reformats are also submitted. All CT scans at [facility] use at least one o f these dose optimization techniques: automated exposure control; mA and/or kV adjustment per patient size (includes targeted exams where dose is matched to clinical indication); or iterative reconstruc tion. CONTRAST: CONTRAST: Omnipaque 350; 100 mL IV. DLP: 175.79 mGy.cm COMPARISON: 02/23/2019 Nasopharynx, oropharynx, hypopharynx and larynx are unremarkable. No soft tissue masses or abnormal e nhancement. Reidentified is very mildly prominent LEFT palatine tonsillar surface as on the prior murphy dy with no change. There is no enhancing mass. Similar findings on 02/23/2019. Normal epiglottis. Torus tubarius and fossa of Rosenmuller and parapharyngeal fat are normal. No significant lymphadenopathy is identified. Thyroid gland and salivary glands are normally enhancing with no masses. C4 anterolisthesis by 3 mm. Advanced degenerative disc disease at C4-5, C5-6 and C6-7. Visualized portions of the skull base demonstrate no abnormalities. Orbits and globes are within norm al limits. No soft tissue masses. Visualized paranasal sinuses and mastoid air cells are normal. Lung apices are clear. IMPRESSION: 1. Stable neck CT since 02/23/2019. 2. No new mass or asymmetry. 3. No adenopathy along the cervical chains.
[2023-04-05 08:22] LABS: Blood Urea Nitrogen 24 mg/dL (8-23)
[2023-04-05] MEDS: iohexol 350 mg/mL 100 mL Btl IV (08:27)
== END 2023-04-05 06:50 | disposition home or self-care (01) ==
LOC: RAD 06:51
PROVIDERS: PCP Nurse Practitioner Family; Visit Provider Otolaryngology
DX: J37.0 Chronic laryngitis (principal); R09.89 Other specified symptoms and signs involving the circulatory and respiratory systems; R07.0 Pain in throat
CPT/HCPCS: 70491; 82565; 84520; Q9967

== ENCOUNTER → 2023-04-15 08:01 | Outpatient (BNVA) | payer MEDICARE, MEDICAID, SELFPAY | PROVIDERS: PCP Nurse Practitioner Family; Visit Provider Internal Medicine Rheumatology | DX: M06.041 Rheumatoid arthritis without rheumatoid factor, right hand (principal); M06.042 Rheumatoid arthritis without rheumatoid factor, left hand; Z79.899 Other long term (current) drug therapy | CPT/HCPCS: 80076; 82565; 85025; 85651; 86140 ==

== ENCOUNTER 2023-06-20 07:57 | Outpatient (CLI) | payer MEDICARE, MEDICAID, SELFPAY ==
--- NOTE | 2023-06-20 08:00 | CT_ITS ---
WS: [email or web address] LDCT LUNG CANCER SCREENING HISTORY: F17.210 - Nicotine dependence, cigarettes, uncomplicated TECHNIQUE: Axial imaging performed from the apices to 1 cm below the costophrenic angles. Coronal and sagittal reformats are submitted with axial MIP series. All CT scans at [facility] use at least one of these dose optimization techniques: automated exposure control; mA and/or kV adjustment per patient size (includes targeted exams where dose is matched to clinical indication); or iterativ e reconstruction. DLP: 66.42 mGy.cm DIvol: Mean CTDIvol: 1.50 (mGy) COMPARISON: 06/17/2022 Diagnostic quality: Satisfactory Lungs: Slight elevation of the LEFT hemidiaphragm. LEFT pleural thickening. Mild increased fat in the lingula adjacent to the LEFT ventricular apex. There are a few scattered nodules throughout both akin gs. Some of these are calcified. Some of these are noncalcified and micronodules. No enlarging mass o r new mass. No endobronchial lesions. Mild bilateral lower lobe bronchiectasis and bronchiectasis in the lingula and medial RIGHT upper lobe. Heart: Normal size heart with no pericardial effusion.. Other findings: Marked atherosclerosis thoracic aorta. There is a focal bulging beyond the aortic aor tic wall of the descending aorta consistent with a pseudoaneurysm which is stable. Extensive coronary artery calcifications. Heart is normal size. No adenopathy. Bilateral stable adrenal adenomas. Stabl e LEFT lobe hepatic cyst is [address]/CT lung screening [id number] IMPRESSION: LUNG-RADS: 2-Benign Appearance or Behavior FOLLOW UP: 12 Month: Continue annual screening with LDCT OTHER FINDINGS (S MODIFIER): None.
== END 2023-06-20 07:58 | disposition home or self-care (01) ==
LOC: RAD 07:58
PROVIDERS: PCP Nurse Practitioner Family; Visit Provider Internal Medicine Pulmonary Disease
DX: F17.210 Nicotine dependence, cigarettes, uncomplicated (principal); Z12.2 Encounter for screening for malignant neoplasm of respiratory organs
CPT/HCPCS: 71271

== ENCOUNTER 2023-06-30 08:10 | Outpatient (CLI) | payer MEDICARE, MEDICAID, SELFPAY ==
--- NOTE | 2023-06-30 08:14 | FL_ITS ---
WS: [email or web address] Barium swallow and esophagram, 06/30/2023 Clinical Data: OTHER DYSPHAGIA Comparison: Barium swallow, 11/16/2011 Fluoroscopy time: 1min [id number] # of spot films: 7 Findings: The patient swallowed the thick and thin barium, and it flowed through the hypopharynx without hesita tion. No stricture, mass, polyp or erosion was seen. No aspiration or penetration occurred. The barium entered the esophagus and there was normal motility throughout. There is distal esophageal dilatation with an eccentric entry into the gastro esophageal junction. This finding is unchanged fr om the prior study. There is a small hiatal hernia with moderate esophageal reflux. No stricture, jeanne yp, mass, erosion or ulcer was noted. No reflux was present. FL/FL barium swallow [id number] Impression: 1. Distal esophageal dilatation with eccentric entry into the gastroesophageal junction. 2. Small hiatal hernia with moderate gastroesophageal reflux.
== END 2023-06-30 08:11 | disposition home or self-care (01) ==
LOC: RAD 08:10
PROVIDERS: PCP Nurse Practitioner Family; Visit Provider Otolaryngology
DX: R13.19 Other dysphagia (principal); Q39.5 Congenital dilatation of esophagus; K44.9 Diaphragmatic hernia without obstruction or gangrene; K21.9 Gastro-esophageal reflux disease without esophagitis
CPT/HCPCS: 74220

== ENCOUNTER 2023-07-06 09:04 | Outpatient (CLI) | payer MEDICARE, MEDICAID, SELFPAY ==
--- NOTE | 2023-07-06 09:11 | FL_ITS ---
WS: [email or web address] Exam: FL barium swallow modifd [id number] Date/Time of Exam: 07/06/2023 9:49 AM Reason For Exam: Other dysphagia Fluoroscopy time: 1min [id number] minutes # of spot films: 0 Modified barium swallow test was performed in conjunction with the speech therapy service. Oral pharyngeal phase of swallowing was normal. No aspiration or penetration. The patient tolerated a ll consistencies of barium mixture foodstuffs without difficulty. The patient swallowed a barium tabl et without complication. FL/FL barium swallow modifd [id number] IMPRESSION: 1. Unremarkable modified barium swallow test. No aspiration or penetration. A separate report with recommendations will follow from the speech therapy serv ice.
== END 2023-07-06 09:05 | disposition home or self-care (01) ==
LOC: RAD 09:04
PROVIDERS: PCP Nurse Practitioner Family; Visit Provider Otolaryngology
DX: R13.19 Other dysphagia (principal)
CPT/HCPCS: 74230; 92611

== ENCOUNTER → 2023-07-14 10:02 | Outpatient (BNVA) | payer MEDICARE, MEDICAID, SELFPAY | PROVIDERS: PCP Nurse Practitioner Family; Visit Provider Internal Medicine Rheumatology | DX: Z79.899 Other long term (current) drug therapy (principal); M06.041 Rheumatoid arthritis without rheumatoid factor, right hand; M06.042 Rheumatoid arthritis without rheumatoid factor, left hand | CPT/HCPCS: 36415; 80076; 82565; 85025; 86140; 99214 ==

== ENCOUNTER 2023-07-25 06:00 | Outpatient (CLI) | payer MEDICARE, MEDICAID, SELFPAY | END 2023-07-25 06:01 | disposition home or self-care (01) | LOC: RAD 10-12 12:48 | PROVIDERS: Visit Provider Internal Medicine Cardiovascular Disease | DX: I35.9 Nonrheumatic aortic valve disorder, unspecified (principal); I50.32 Chronic diastolic (congestive) heart failure | CPT/HCPCS: 99213 ==

== ENCOUNTER 2023-07-27 07:01 | Outpatient (CLI) | payer MEDICARE, MEDICAID, SELFPAY ==
[2023-07-27 07:40] LABS: Blood Urea Nitrogen 28 mg/dL (8-23)
== END 2023-07-27 07:02 | disposition home or self-care (01) ==
PROVIDERS: PCP Nurse Practitioner Family; Visit Provider Internal Medicine Rheumatology
DX: R79.89 Other specified abnormal findings of blood chemistry (principal); Z79.899 Other long term (current) drug therapy
CPT/HCPCS: 36415; 82565; 84520

== ENCOUNTER 2023-08-10 07:42 | Outpatient (CLI) | payer MEDICARE, MEDICAID, SELFPAY ==
--- NOTE | 2023-08-10 09:00 | USCV_ITS ---
Tatiana Alvarez Age: 72 Gender: F : 1950 Exam Date: 08/10/2023 07:59 Ordering Phys: Tadeo Dey MD ([email or web address]) Technologist: Exam Location: [facility] – [place] Indication: chf murmur BP: / HR: 63 Rhythm: Sinus Technical Quality: Adequate MEASUREMENTS (Male / Female) Normal Values 2D ECHO LV Diastolic Diameter PLAX 4.4 cm 4.2 - 5.9 / 3.9 - 5.3 cm IVS Diastolic Thickness 1.4 cm 0.6 - 1.0 / 0.6 - 0.9 cm IVS Systolic Thickness 2.0 cm LVPW Diastolic Thickness 1.2 cm 0.6 - 1.0 / 0.6 - 0.9 cm LVPW Systolic Thickness 1.3 cm LVOT Diameter 2.0 cm LV Ejection Fraction 2D Teich 65.5 % LV Ejection Fraction MOD 2C 53.9 % LV Ejection Fraction 2C AL 54.8 % LA Diameter 3.6 cm RA Systolic Volume 4C AL 32.2 ml RA Systolic Volume 4C MOD 32.2 ml Aorta at Sinotubular Diameter 2.7 cm M-MODE LA Ao Ratio MM 1.0 AV Cusp Separation MM 2.1 cm DOPPLER AV Peak Velocity 163.0 cm/s LVOT Peak Velocity 94.0 cm/s AV Area Cont Eq vti 2.3 cm squared AV Area Cont Eq pk 1.8 cm squared MV Peak Velocity 150.0 cm/s MV Area PHT 4.8 cm squared Mitral E to A Ratio 0.9 TV Peak Velocity 226.5 cm/s TR Peak Velocity 310.0 cm/s TR Peak Gradient 38.4 mmHg TV Peak E Velocity 73.0 cm/s Right Atrial Pressure 3.0 mmHg Pulmonary Artery Systolic Pressu 41.4 mmHg PV Peak Velocity 69.0 cm/s FINDINGS Left Ventricle Normal left ventricular size, systolic function and wall thickness, with no regional wall motion abnormalities. Normal diastolic function. Left ventricular ejection fraction is estimated at 60 %. Right Ventricle Normal right ventricular size and systolic function. Mild pulmonary hypertension, RVSP 41.4 mmHg. Right Atrium The right atrium is normal in size. Left Atrium The left atrium is normal in size. Mitral Valve Structurally normal mitral valve without significant stenosis or prolapse. There is no mitral regurgitation. Aortic Valve Structurally normal trileaflet aortic valve. Mild aortic valve regurgitation. No aortic valve stenosis. Tricuspid Valve Structurally normal tricuspid valve. Mild tricuspid valve regurgitation. Pulmonic Valve Pulmonic valve not well visualized. Pericardium Normal pericardium without effusion. Aorta Normal ascending aorta dimension. IVC The inferior vena cava appears normal. CONCLUSIONS Normal left ventricular size, systolic function and wall thickness, with no regional wall motion abnormalities. Normal diastolic function. Left ventricular ejection fraction is estimated at 60 %. Normal right ventricular size and systolic function. Mild pulmonary hypertension, RVSP 41.4 mmHg. Structurally normal trileaflet aortic valve. Mild aortic valve regurgitation. No aortic valve stenosis. No change from the previous echo [address] Jevon Leyva MD (Electronically Signed) Final Date: 10 August 2023 18:57 S
--- NOTE | 2023-08-10 09:45 | USCV_ITS ---
Tatiana Alvarez Age: 72 Gender: F : 1950 Exam Date: 08/10/2023 08:04 Ordering Phys: Tadeo Dey MD ([email or web address]) Technologist: Exam Location[place] [facility] [place]ication: pad leg pain RIGHT LEFT Brachial 128.00 mmHg Brachial 125.00 mmHg Pressure (mmHg) Waveform Pressure (mmHg) Waveform 80.00 SOFTWARE ENGINEER DEVELOPER 63.00 79.00 DPA 62.00 0.63 Ankle/Brachial Index 0.48 63.00 Pre-Exercise Toe Pressure 57.00 0.49 Pre-Exercise Toe/Brachial Index 0.45 FINDINGS Resting AGATA of 0.63 on the right side and 0.48 on the left side Resting TBI of 0.49 on the right and 0.45 on the left CONCLUSIONS 1. Features of abnormal resting AGATA and TBI on the right side, suggesting moderate peripheral artery disease 2. Abnormal resting AGATA and TBI on the left side suggesting severe peripheral arterial disease Dr Blanquita Lopez MD [facility] (Electronically Signed) Final Date: 10 August 2023 11:03 S
== END 2023-08-10 07:43 | disposition home or self-care (01) ==
LOC: RAD 07:43
PROVIDERS: PCP Nurse Practitioner Family; Visit Provider Internal Medicine Cardiovascular Disease
DX: R93.6 Abnormal findings on diagnostic imaging of limbs (principal); M79.604 Pain in right leg; M79.605 Pain in left leg; R07.9 Chest pain, unspecified; R06.02 Shortness of breath
CPT/HCPCS: 93306; 93922

== ENCOUNTER → 2023-08-25 13:18 | Outpatient (BNVA) | payer MEDICARE, MEDICAID, SELFPAY | PROVIDERS: PCP Nurse Practitioner Family; Visit Provider Internal Medicine Critical Care Medicine | DX: R13.19 Other dysphagia (principal); R09.89 Other specified symptoms and signs involving the circulatory and respiratory systems; R06.09 Other forms of dyspnea; J43.2 Centrilobular emphysema; I50.32 Chronic diastolic (congestive) heart failure; I27.20 Pulmonary hypertension, unspecified; F17.200 Nicotine dependence, unspecified, uncomplicated; I73.9 Peripheral vascular disease, unspecified; G47.33 Obstructive sleep apnea (adult) (pediatric); J44.9 Chronic obstructive pulmonary disease, unspecified; R07.0 Pain in throat; Z71.9 Counseling, unspecified; M79.605 Pain in left leg | CPT/HCPCS: 99214 ==

== ENCOUNTER 2023-09-01 07:16 | Outpatient (CLI) | payer MEDICARE, MEDICAID, SELFPAY ==
--- NOTE | 2023-09-01 | ECG_ITS ---
[facility] Test Date: 2023-09-01 Pat Name: Tatiana Alvarez Department: Room: Gender: Female Glove Examiner: : 1950 Requested By: Marquis Strickland Order Number: [id number] Reading MD: Interpretive Statements Lung unchanged pre/post procedure; Intraprocedure shortess of breath; Symptoms resoled by discharge [id number]
[2023-09-01 07:39] VITALS: BMI 22.6
--- NOTE | 2023-09-01 07:41 | NMCV_ITS ---
NM damion perf SPECT r/s* [id number] Tatiana Alvarez Age: 72 Gender: F : 1950 Exam Date: 09/01/2023 08:12 Ordering Phys: Marquis Strickland M.D ([email or web address]) Technologist: GREGORY Randall Exam Location: [facility] Indications: CP STRESS TEST Please see separate stress test report in [facility] for full findings IMAGE PROTOCOL Rest/Stress 1 Lexiscan Day Radiopharmaceutical Dose (mCi) Administration Site Administered by Rest: Tc-99m 10.7 IV GREGORY Randall Sestamibi Stress:Tc-99m 32.5 IV GREGORY Randall Sestamibi Rest: 01-Sep-2023 60 Discovery 630 Stress: 01-Sep-2023 30 Discovery 630 0.4mg Lexiscan. Supine position only as patient was unable to lay prone. SPECT RESULTS Technical Quality: Good Raw Data Analysis: Subdiaphragmatic activity Image Corrections: No attenuation or motion correction applied Summed Stress Score: 6 Summed Rest Score: 5 Summed Difference Score: 1 PERFUSION FINDINGS Medium sized area of fixed perfusion defect noted in the lateral wall. This is consistent with medium sized area of prior infarct seen in left circumflex artery territory. FUNCTIONAL RESULTS (calculated via Gated SPECT) Stress Image LV EF (%): 81 Stress EDV (mL):52 TID: 0.81 Stress ESV (mL):10 FUNCTIONAL FINDINGS: There is normal left ventricular systolic function. IMPRESSIONS 1. 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 2. LV systolic function is normal Marquis Strickland MD (Electronically Signed) Final Date: 01 September 2023 11:24 S
[2023-09-01] MEDS: regadenoson 0.4 Mg/5 ml Syringe IVP (09:00)
[2023-09-01 09:19] VITALS: BP 113/68; PULSE 97
== END 2023-09-01 07:17 | disposition home or self-care (01) ==
PROVIDERS: PCP Nurse Practitioner Family; Visit Provider Internal Medicine Cardiovascular Disease
DX: R07.9 Chest pain, unspecified (principal); I77.89 Other specified disorders of arteries and arterioles
CPT/HCPCS: 36415; 78452; 93017; 96374; A9500; J2785

== ENCOUNTER 2023-09-05 06:00 | Outpatient (RCR) | payer MEDICARE, MEDICAID, SELFPAY | END 2023-09-07 23:59 | disposition home or self-care (01) | LOC: AST 06:00 | PROVIDERS: Visit Provider Internal Medicine Critical Care Medicine | DX: R13.19 Other dysphagia (principal); R09.89 Other specified symptoms and signs involving the circulatory and respiratory systems; R06.09 Other forms of dyspnea | CPT/HCPCS: 92610 ==

== ENCOUNTER 2023-10-20 12:12 | Emergency (ER) | payer MEDICARE, MEDICAID, SELFPAY ==
[2023-10-20] VITALS (7 sets, daily range): BP systolic 137–165; BP diastolic 58–68; PULSE 52–64; RESP 17–21; TEMP 36.5; O2SAT 91–96; BMI 31.3
--- NOTE | 2023-10-20 12:31 | XRR_ITS ---
PROCEDURE INFORMATION: Exam: XR Chest Exam date and time: 10/20/2023 12:47 PM Age: 72 years old Clinical indication: Pain; Shortness of breath; Angina pectoris; Prior surgery; Surgery date: 6+ months; Surgery type: Hemicolectomy; Patient HX: HX of vulva cancer; Additional info: Chest pain TECHNIQUE: Imaging protocol: Radiologic exam of the chest. Views: 1 view. COMPARISON: CT lung screening [id number] 06/20/2023 8:06 AM FINDINGS: Lungs: Unremarkable. No consolidation. Pleural spaces: Chronic left lateral pleural thickening. No acute infiltrate, effusion, pneumonia, or pneumothorax. Heart/Mediastinum: Unremarkable. No cardiomegaly. Bones/joints: Unremarkable. XR/XR chest 1V portable [id number] IMPRESSION: No acute cardiopulmonary disease.
--- NOTE | 2023-10-20 12:31 | ECG_ITS ---
[facility] Test Date: 2023-10-20 Pat Name: Tatiana Alvarez Department: Room: Gender: Female Steward/Stewardess: : 1950 Requested By: Jose Luis Burgos Order Number: [id number] Reading MD: JEREMIE ARMAS Measurements Intervals [place] Rate: 53 P: 65 CO: 154 QRS: 48 QRSD: 83 T: 58 QT: 440 QTc: 413 Interpretive Statements SINUS BRADYCARDIA POSSIBLE LEFT ATRIAL ENLARGEMENT [-0.1mV P-WAVE IN V1/V2] Compared to ECG 10/28/2021 11:18:49 Sinus rhythm no longer present Electronically Signed On 10-20-2023 19:53:12 CDT by JEREMIE ARMAS [email or web address] [email or web address] [id number]
--- NOTE | 2023-10-20 12:35 | W.ED.CHESTPA ---
HPI - Chest Pain General: Chief Complaint: Chest Pain Stated Complaint: cp Time Seen by Provider: 10/20/23 12:20 History of Present Illness: 72-year-old female presents emergency room for chest tightness this been going on for the last 2 weeks. Pain in her right arm. She also has some lower back pain associated with it. She has had chronic problems with her back. She has taken some [place] today which did seem to help her back pain. No fever sweats or chills her blood pressure was also elevated. No fever sweats or chills. Associated symptoms: Deny abdominal pain, dyspnea or fever(s) Related Data Home Medications Medication Instructions Recorded Confirmed [id number] acid 0.4 1 tab PO DAILY 09/23/21 08/25/23 mg-lycopene 300 mcg-lutein 250 mcg tablet (Complete Multivitamin Adult 50 Plus) vitamin B complex (B 1 tab PO DAILY 09/23/21 08/25/23 Complex-Vitamin B12 tablet) Zinc PO 07/06/22 08/25/23 esomeprazole magnesium 40 mg 40 mg PO DAILY 10/18/22 08/25/23 capsule,delayed release cyclobenzaprine 10 mg tablet mg PO 11/02/22 08/25/23 hydrocodone 10 mg-acetaminophen 1 tab PO DAILY 11/02/22 08/25/23 325 mg tablet pregabalin 150 mg capsule mg PO 11/02/22 08/25/23 ropinirole 2 mg tablet ea PO 11/02/22 08/25/23 loratadine 10 mg tablet 10 mg PO DAILY 01/12/23 08/25/23 diclofenac sodium 75 mg 75 mg PO BID 07/25/23 08/25/23 tablet,delayed release ibuprofen 800 mg tablet 800 mg PO Q8H PRN 07/25/23 08/25/23 magnesium PO 07/25/23 08/25/23 potassium 99 mg tablet mg PO 07/25/23 08/25/23 temazepam 15 mg capsule mg PO 07/25/23 08/25/23 trazodone 150 mg tablet 150 mg PO DAILY PRN 07/25/23 08/25/23 prednisone 5 mg tablet 5 mg PO DAILY PRN 08/25/23 08/25/23 Previous Rx's Medication Instructions Recorded clobetasol 0.05 % topical cream 1 applic topical BID 2 weeks #45 09/17/21 grams bumetanide 1 mg tablet 2 mg (2 x 1 mg) PO DAILY #180 tabs 09/23/21 guaifenesin 100 mg/5 mL oral 200 mg (10 mL) PO Q4H PRN cough 12/11/21 liquid (Mucinex Fast-Max Chest #473 mL Congestion) acetaminophen 500 mg tablet 500 mg PO Q6H PRN pain #90 tabs 03/10/22 (Tylenol Extra Strength) montelukast 10 mg tablet 10 mg PO DAILY breathing #30 tabs 04/27/22 (Singulair) spironolactone 25 mg tablet See Rx Instructions .Route 05/26/22 .COMPLEX #30 tabs lisinopril 40 mg tablet 40 mg PO DAILY #90 tabs 06/25/22 metoprolol tartrate 50 mg tablet 50 mg PO BID #180 tabs 06/25/22 hydrocortisone acetate 25 mg 25 mg PA DAILY #30 ea 09/21/22 rectal suppository (Anusol-HC) mometasone 0.1 % topical cream 1 applic topical DAILY #45 grams 09/21/22 nystatin 100,000 unit/gram topical 1 applic topical DAILY #30 grams 09/21/22 cream Acapella #1 ea 01/12/23 sodium chloride 7 % for 4 ml inhalation BID #240 mL 01/12/23 nebulization (Hyper-Dilan) omeprazole 40 mg capsule,delayed 40 mg PO BID #60 caps 02/01/23 release budesonide 160 mcg-glycopyr 9 2 inh inhalation BID #10.7 grams 02/15/23 mcg-formot 4.8 mcg/actuation HFA inhaler (Breztri Aerosphere) albuterol sulfate 2.5 mg/3 mL 2.5 mg (3 mL) continuous 05/27/23 (0.083 %) solution for nebulization nebulization Q6H PRN shortness of breath or wheezing #90 mL hydroxychloroquine 200 mg tablet 200 mg PO BID #180 tabs 07/14/23 (Plaquenil) sulfasalazine 500 mg tablet 1,000 mg (2 x 500 mg) PO BID #360 07/14/23 tabs nitroglycerin 0.4 mg sublingual 0.4 mg sublingual Q5M PRN chest 09/06/23 tablet pain #30 tabs isosorbide mononitrate 30 mg 30 mg PO DAILY #30 tabs 10/20/23 tablet,extended release 24 hr Allergies Allergy/AdvReac Type Severity Reaction Status Date / Time metronidazole [From Flagyl] Allergy Intermediate Sores on Verified 10/20/23 12:23 legs Review of Systems Const: Denies: fever(s) or chills Card: Reports: chest pain Resp: Denies: dyspnea GI: Denies: abdominal pain : Denies: dysuria, urinary frequency or urinary urgency Musc: Denies: neck pain or back pain Skin/Breast: Denies: rash PFSH ED PFSH: Medical History Aortic valve disease Sacroiliac (ligament) sprain Bony pelvic pain Mixed stress and urge incontinence RLS (restless legs syndrome) History of cancer of vulva s/p excision and radiation therapy Lumbar spondylosis History of PFTs 05/2020: normal spirometry and lung volumes; isolated gas transfer suggestive of pulmonary vascular disease Bright red blood per rectum Altered mental state Arm and leg movements, uncontrollable Hypertension Anxiety about health GERD (gastroesophageal reflux disease) Osteoarthritis of both hands Atherosclerosis of coronary artery Seronegative rheumatoid arthritis of both hands Lumbar stenosis with neurogenic claudication Congestive heart failure Diastolic High risk medication use COPD (chronic obstructive pulmonary disease) Sleep apnea She chose not to treat with CPAP RLS (restless legs syndrome) DDD (degenerative disc disease) Chronic pain pain clinic in [facility] Tobacco abuse 2 ppd all of her adult life, 45 + years. Aortic regurgitation mild to moderate Surgical History History of cardiac catheterization 07/2020: moderate left main, stenosis, FFR 0.94, no hemodynamically significant History of colonoscopy 07/2021 History of appendectomy History of hernia repair History of colon surgery H/O: hysterectomy Total Hysterectomy in 1970 History of lung surgery H/O hemorrhoidectomy H/O cataract extraction S/P carpal tunnel release History of bilateral carpal tunnel release Family History Mother Diabetes Heart disease Hypertension Hyperchloremia Stroke Father Alcohol abuse Sister Dementia Stroke Social History Smoking and tobacco/nicotine status: current every day tobacco/nicotine user (2 ppd) cigarettes Packs smoked per day: 2.5 Years cigarettes smoked: 60 [ Other cigarette details: 3ppd previously ] Quit status (tobacco/nicotine): has tried quititng Alcohol intake: former Substance/Drug Use: never Caregiver/support person: Yes Lives independently: Yes Household members: none Marital status: Highest education level completed: GED or Equivalent service: No Current occupational status: retired and disabled Pets and animals: No Do you think of yourself as: Straight/Heterosexual Current gender identity: Female Brenda/Synagogue: [employer] Physical Exam Const: GENERAL APPEARANCE: cooperative ORIENTATION/CONSCIOUSNESS: Yes awake, Yes oriented to person, Yes oriented to place and Yes oriented to time HENMT: COMMON NORMALS: normocephalic, atraumatic and hearing grossly normal bilaterally HEAD & SCALP: normocephalic and atraumatic Resp: COMMON NORMALS: normal respiratory effort, No retractions, No use of accessory muscles and clear to auscultation bilaterally AUSCULTATION: clear to auscultation bilaterally Cardio: COMMON NORMALS: regular rate, regular rhythm and No murmurs present (Cardio) RATE: regular rate RHYTHM: regular rhythm GI: COMMON NORMALS: Soft to palpation and No hepatosplenomegaly present AUSCULTATION: Yes normoactive bowel sounds PALPATION: Yes Soft to palpation, No Tenderness to palpation present (GI), No Guarding due to palpation present (GI) and Yes No hepatosplenomegaly present Extremity: COMMON NORMALS: normal to inspection, capillary refill normal, no clubbing, cyanosis or edema, no calf tenderness and no pedal edema Neuro: SENSORIUM/ORIENTATION: Yes oriented to person, Yes oriented to place and Yes oriented to time Skin: COMMON NORMALS: no rashes or lesions noted GENERAL SKIN EXAM: no rashes or lesions noted Course Vital Signs: Vital signs: Vital Signs Temperature 97.7 F 10/20/23 12:13 Pulse Rate 64 10/20/23 15:57 Respiratory Rate 18 10/20/23 15:30 Blood Pressure 154/58 10/20/23 15:57 Pulse Oximetry 96 10/20/23 15:57 Oxygen Delivery Me thod Room Air 10/20/23 15:30 MDM - Chest Pain Medical Decision Making No further chest pain. EKG does not show any changes troponins trending unchanged. The patient had a stress test done in August of this year that was negative. D-dimer slightly elevated CTA negative. Patient wishes to go home at this point. Given normal trending troponins abnormal recent stress test and no EKG changes no indication for further workup. She is not currently having pain. Discussed with on-call cardiology they concur. Medical Records I reviewed the patient's medical records. Lab Data I reviewed the patient's lab results. 10/20/23 12:45 10/20/23 12:45 Radiology Impressions Chest X-Ray 10/20/23 12:31 IMPRESSION: No acute cardiopulmonary disease. Chest CTA 10/20/23 13:35 IMPRESSION: No acute findings. Laboratory Results WBC 9.65 10^3/uL (3.29-11.43) 10/20/23 12:45 RBC 3.43 10^6/uL (3.85-5.65) L 10/20/23 12:45 Hgb 9.70 g/dL (11.27-16.99) L 10/20/23 12:45 Hct 31.7 % (36-47) L 10/20/23 12:45 MCV 92.4 fl (85-98) 10/20/23 12:45 MCH 28.3 pg (27-33) 10/20/23 12:45 MCHC 30.6 g/dL (30-55) 10/20/23 12:45 RDW 18.1 % (12.1-15.1) H 10/20/23 12:45 Plt Count 243 10^3/cmm (157-399) 10/20/23 12:45 MPV 9.3 fL (7.4-10.4) 10/20/23 12:45 Neut % (Auto) 61.5 % 10/20/23 12:45 Lymph % (Auto) 30.5 % 10/20/23 12:45 Haakon % (Auto) 7.0 % 10/20/23 12:45 Eos % (Auto) 0.4 % 10/20/23 12:45 Baso % (Auto) 0.4 % 10/20/23 12:45 Neut # (Auto) 5.93 10^3/uL (1.8-7.7) 10/20/23 12:45 Lymph # (Auto) 2.9 10^3/uL (0.8-4.8) 10/20/23 12:45 Haakon # (Auto) 0.7 10^3/uL (0.2-0.9) 10/20/23 12:45 Eos # (Auto) 0.0 10^3/uL (0.0-0.8) 10/20/23 12:45 Baso # (Auto) 0.0 10^3/uL (0.0-0.1) 10/20/23 12:45 Nucleated RBC % (auto) 0 % 10/20/23 12:45 Nucleated RBCs # 0.0 /100WBC 10/20/23 12:45 D-Dimer 2.08 ug/mLFEU (0-0.59) H 10/20/23 12:45 Sodium 139 mmol/L (136-145) 10/20/23 12:45 Potassium 4.1 mmol/L (3.5-5.1) 10/20/23 12:45 Chloride 102 mmol/L (98-107) 10/20/23 12:45 Carbon Dioxide 27 mmol/L (22-29) 10/20/23 12:45 Anion Gap 14.1 (5-19) 10/20/23 12:45 BUN 12 mg/dL (8-23) 10/20/23 12:45 Creatinine 0.6 mg/dL (0.5-0.9) 10/20/23 12:45 GFR Calculation Not Reportable 10/20/23 12:45 Glucose 100 mg/dL (65-115) 10/20/23 12:45 Calculated Osmolality 288 mOsm/kg (285-295) 10/20/23 12:45 Calcium 8.9 mg/dL (8.5-10.5) 10/20/23 12:45 Total Bilirubin 0.2 mg/dL (0.15-1.2) 10/20/23 12:45 AST 14 U/L (0-32) 10/20/23 12:45 ALT 9 U/L (0-33) 10/20/23 12:45 Alkaline Phosphatase 71 U/L (35-105) 10/20/23 12:45 Troponin T Baseline 21 ng/L (0-10) H 10/20/23 12:45 Troponin T 120 Minute 20.96 ng/L (0-10) H 10/20/23 14:17 Delta Troponin T -0.04 ABS# (0-10) L 10/20/23 14:17 Total Protein 6.5 g/dL (6.6-8.7) L 10/20/23 12:45 Albumin 3.8 g/dL (3.5-5.2) 10/20/23 12:45 Globulin 2.7 g/dL (1.3-4.6) 10/20/23 12:45 Lipase 41 U/L (13-60) 10/20/23 12:45 All radiology interpretation(s) finalized by discharge Clincial Decision Support The following clinical decision support tools were used to aid in care of the patient HEART Score -> History: Slightly Suspicous, EKG: Normal, Age: 65 or more yrs, Risk Factors: >/=3 Risk Factors, Troponin: Baseline Trop 16-45 ng/L. Resulting HEART Score: 5. Discharge Plan Discharge Patient Disposition: Home Clinical Impression: Atypical chest pain, Hypertension Condition: Stable Prescriptions: New isosorbide mononitrate 30 mg tablet extended release 24 hr 30 mg PO DAILY Qty: 30 0RF No Action clobetasol 0.05 % cream 1 applic topical BID 14 Days Qty: 45 0RF Rx Instructions: use twice daily for two weeks only and then twice a week after that. vitamin B complex [B Complex-Vitamin B12] Tablet 1 tab PO DAILY Complete MV Adult 50 Plus 0.4 mg-300 mcg- 250 mcg tablet 1 tab PO DAILY bumetanide 1 mg tablet 2 mg PO DAILY Qty: 180 3RF esomeprazole magnesium 40 mg capsule,delayed release(DR/EC) 40 mg PO DAILY hydroxychloroquine [Plaquenil] 200 mg tablet 200 mg PO BID Qty: 180 1RF sulfasalazine 500 mg tablet 1,000 mg PO BID Qty: 360 1RF prednisone 5 mg tablet 5 mg PO DAILY PRN Zinc PO loratadine 10 mg tablet 10 mg PO DAILY sodium chloride [Hyper-Dilan] 7 % solution for nebulization 4 ml inhalation BID Qty: 240 1RF cyclobenzaprine 10 mg tablet PO hydrocodone-acetaminophen 10-325 mg tablet 1 tab PO DAILY ropinirole 2 mg tablet PO pregabalin 150 mg capsule PO ibuprofen 800 mg tablet 800 mg PO Q8H PRN potassium 99 mg tablet PO temazepam 15 mg capsule PO trazodone 150 mg tablet 150 mg PO DAILY PRN diclofenac sodium 75 mg tablet,delayed release (DR/EC) 75 mg PO BID magnesium PO guaifenesin [Mucinex Fast-Max Chest-Congest] 100 mg/5 mL liquid 200 mg PO Q4H PRN (Reason: cough) Qty: 473 2RF acetaminophen [Tylenol Extra Strength] 500 mg tablet 500 mg PO Q6H PRN (Reason: pain) Qty: 90 0RF montelukast [Singulair] 10 mg tablet 10 mg PO DAILY Qty: 30 5RF spironolactone 25 mg tablet See Rx Instructions .ROUTE .COMPLEX Qty: 30 5RF Dose Instruction: TAKE ONE TABLET BY MOUTH EVERY MORNING FOR EDEMA Rx Instructions: TAKE ONE TABLET BY MOUTH EVERY MORNING FOR EDEMA metoprolol tartrate 50 mg tablet 50 mg PO BID Qty: 180 2RF lisinopril 40 mg tablet 40 mg PO DAILY Qty: 90 3RF hydrocortisone acetate [Anusol-HC] 25 mg suppository 25 mg PA DAILY Qty: 30 0RF nystatin 100,000 unit/gram cream 1 applic topical DAILY Qty: 30 1RF Rx Instructions: apply 2-3 times daily mometasone 0.1 % cream 1 applic topical DAILY Qty: 45 1RF Rx Instructions: apply 2-3 times daily (DME) Acapella See Rx Instructions .Route .MEDSUPPLY Qty: 1 0RF Rx Instructions: 15 minutes TID as tolerated omeprazole 40 mg capsule,delayed release(DR/EC) 40 mg PO BID Qty: 60 5RF Breztri Aerosphere 160-9-4.8 mcg/actuation HFA aerosol inhaler 2 inh inhalation BID Qty: 10.7 6RF albuterol sulfate 2.5 mg /3 mL (0.083 %) solution for nebulization 2.5 mg continuous nebulization Q6H PRN (Reason: shortness of breath or wheezing) Qty: 90 1RF nitroglycerin 0.4 mg tablet, sublingual 0.4 mg sublingual Q5M PRN (Reason: chest pain) Qty: 30 2RF Rx Instructions: do not exceed 3 doses per episode Discharge Orders: Discharge ED (Routine); Ordered 10/20/23 Ordered By: Jose Luis Coley Discharge Diet: Usual diet Discharge Activity: Limit activity as instructed Patient Instructions: Opioid Safety, Pain Management Activity Restrictions/Additional Instructions: Thank you for choosing [facility] for your healthcare needs today. It is very important that you follow up as instructed or that you return to the Emergency Department should you have concerns or if your condition changes or worsens in any way. You were seen in the emergency room with complaints of chest discomfort. Cardiac enzymes were negative your D-dimer is elevated but is scan of your chest to evaluate for pulmonary embolism was also negative. Reviewing the chart you were had a stress test in August of this year that was unremarkable. I discussed your case with the on-call mattress renovator recommended to follow-up with Dr. Barragan in the office. We do recommend you start isosorbide mononitrate 30 mg once daily. Symptoms worsen or change recheck. Continue all of your other medications. Coding Level of Care Code ED News Gathering Technician for Tracy Medrano
[2023-10-20] MEDS: HYDROcodone-acetaminophen 10-325 mg Tablet 1 TAB PO (12:52)
[2023-10-20] MEDS: sodium chloride 0.9% 1,000 ML 999 ML IV (12:54)
[2023-10-20 12:55] LABS: Basophils % 0.4 %; Eosinophils % 0.4 %; Hematocrit 31.7 % (36-47); Lymphocytes # 2.9 10^3/uL (0.8-4.8); Lymphocytes % 30.5 %; Mean Corpuscular HGB Conc 30.6 g/dL (30-55); Mean Corpuscular Hemoglobin 28.3 pg (27-33); Mean Corpuscular Volume 92.4 fl (85-98); Mean Platelet Volume 9.3 fL (7.4-10.4); Monocytes # 0.7 10^3/uL (0.2-0.9); Neutrophils # 5.93 10^3/uL (1.8-7.7); Neutrophils % 61.5 %; Nucleated Red Blood Cells % 0 %; Platelet Count 243 10^3/cmm (157-399); Red Blood Count 3.43 10^6/uL (3.85-5.65); Red Cell Distribution Width 18.1 % (12.1-15.1); White Blood Count 9.65 10^3/uL (3.29-11.43)
--- NOTE | 2023-10-20 13:03 | PC.NURSE ---
pt c/o back pain rated 9 states she didnt take her morning pain pill norco 10/325mg tab. this nurse informed dr reggie placed order for norco 10/325, pain medication given at this time.
[2023-10-20 13:08] LABS: D Dimer 2.08 ug/mLFEU (0-0.59)
[2023-10-20 13:11] LABS: Alanine Aminotransferase 9 U/L (0-33); Albumin Level 3.8 g/dL (3.5-5.2); Alkaline Phosphatase 71 U/L (35-105); Anion Gap 14.1 (5-19); Aspartate Amino Transferase 14 U/L (0-32); Blood Urea Nitrogen 12 mg/dL (8-23); Calcium 8.9 mg/dL (8.5-10.5); Carbon Dioxide 27 mmol/L (22-29); Chloride 102 mmol/L (98-107); Creatinine Clr Calc Pharmacy 60.0251; Globulin 2.7 g/dL (1.3-4.6); Glucose 100 mg/dL (65-115); Lipase 41 U/L (13-60); Osmolality Calculated 288 mOsm/kg (285-295); Potassium 4.1 mmol/L (3.5-5.1); Sodium 139 mmol/L (136-145); Total Bilirubin 0.2 mg/dL (0.15-1.2); Total Protein 6.5 g/dL (6.6-8.7)
[2023-10-20 13:14] LABS: Troponin(5th) Baseline 21 ng/L (0-10)
--- NOTE | 2023-10-20 13:35 | CTR_ITS ---
PROCEDURE INFORMATION: Exam: CTA Chest With Contrast Exam date and time: 10/20/2023 2:08 PM Age: 72 years old Clinical indication: Shortness of breath; Additional info: Elevated d-dimer chest pain TECHNIQUE: Imaging protocol: Computed tomographic angiography of the chest with contrast. Exam focused on the arteries. 3D rendering (Not supervised by radiologist): MIP and/or 3D reconstructed images were created by the technologist. Radiation optimization: All CT scans at this facility use at least one of these dose optimization techniques: automated exposure control; mA and/or kV adjustment per patient size (includes targeted exams where dose is matched to clinical indication); or iterative reconstruction. Contrast material: OMNI 350; Contrast volume: 70 ml; Contrast route: INTRAVENOUS (IV); COMPARISON: CT lung screening [id number] 06/20/2023 8:06 AM RADIATION DOSE METRICS: Total DLP (mGy-cm): 417 FINDINGS: Pulmonary arteries: Normal. No pulmonary emboli. Aorta: Unremarkable. No aortic aneurysm. No aortic dissection. Lungs: Unremarkable. No consolidation. No masses. Pleural spaces: Unremarkable. No pneumothorax. No pleural effusion. Heart: Unremarkable. No cardiomegaly. No pericardial effusion. Lymph nodes: Unremarkable. No enlarged lymph nodes. Bones/joints: Unremarkable. No acute fracture. Soft tissues: Unremarkable. CT/CT angio chest PE protcl [id number] IMPRESSION: No acute findings.
[2023-10-20] MEDS: iohexol 350 mg/mL 500 mL Btl (per mL) IV (14:11)
--- NOTE | 2023-10-20 14:24 | ECG_ITS ---
[facility] Test Date: 2023-10-20 Pat Name: Tatiana Alvarez Department: Room: Gender: Female Swatch Folder: : [id number] Requested By: Jose Luis Burgos Order Number: [id number] Reading MD: JEREMIE ARMAS Measurements Intervals [place] Rate: 59 P: 67 [place]: 158 QRS: 54 QRSD: 88 T: 54 QT: 443 QTc: 441 Interpretive Statements SINUS BRADYCARDIA Compared to ECG 10/20/2023 12:16:06 No significant changes Electronically Signed On 10-20-2023 19:53:50 CDT by JEREMIE ARMAS [email or web address]
--- NOTE | 2023-10-20 14:47 | PC.NURSE ---
pt states back pain currently 6, states she has chronic back pain. pt states she feels much better now.
[2023-10-20 14:53] LABS: Troponin 5 2HR 20.96 ng/L (0-10)
[2023-10-20 14:54] LABS: Troponin 5 2HR Delta -0.04 ABS# (0-10)
== END 2023-10-20 15:58 | disposition home or self-care (01) ==
PROVIDERS: Emergency Provider Family Medicine
DX: R07.89 Other chest pain (principal); F17.210 Nicotine dependence, cigarettes, uncomplicated; Z85.44 Personal history of malignant neoplasm of other female genital organs; Z92.3 Personal history of irradiation; I25.10 Atherosclerotic heart disease of native coronary artery without angina pectoris; I11.0 Hypertensive heart disease with heart failure; I50.30 Unspecified diastolic (congestive) heart failure; J44.9 Chronic obstructive pulmonary disease, unspecified
CPT/HCPCS: 36415; 71045; 71275; 80053; 83690; 84484; 85025; 85378; 93005; 96360; 96361; 99285; J7030

== ENCOUNTER → 2023-10-26 14:26 | Outpatient (BNVA) | payer MEDICARE, MEDICAID, SELFPAY | PROVIDERS: Visit Provider Internal Medicine Cardiovascular Disease | DX: R07.9 Chest pain, unspecified (principal); I35.9 Nonrheumatic aortic valve disorder, unspecified; I10 Essential (primary) hypertension; F17.210 Nicotine dependence, cigarettes, uncomplicated | CPT/HCPCS: 99214 ==

== ENCOUNTER 2023-11-08 06:00 | Outpatient (RCR) | payer MEDICARE, MEDICAID, SELFPAY | END 2023-12-08 23:59 | disposition home or self-care (01) | LOC: APT 06:00 | PROVIDERS: PCP Nurse Practitioner Family; Visit Provider Nurse Practitioner Family | DX: G89.4 Chronic pain syndrome (principal); M70.61 Trochanteric bursitis, right hip | CPT/HCPCS: 97110; 97163; 97530 ==

== ENCOUNTER 2023-11-11 05:33 | Outpatient (CLI) | payer MEDICARE, MEDICAID, SELFPAY ==
[2023-11-11] VITALS (24 sets, daily range): BP systolic 123–155; BP diastolic 64–106; PULSE 70–112; RESP 13–25; TEMP 36.6; O2SAT 85–97; BMI 31.1
[2023-11-11] MEDS: aspirin 325 mg Tablet PO (06:10)
[2023-11-11] MEDS: diphenhydrAMINE 50 mg Capsule PO (06:10)
[2023-11-11 06:22] LABS: Basophils # 0.1 10^3/uL (0.0-0.1); Basophils % 0.7 %; Eosinophils # 0.1 10^3/uL (0.0-0.8); Eosinophils % 1.4 %; Hematocrit 33.9 % (36-47); Lymphocytes # 2.6 10^3/uL (0.8-4.8); Lymphocytes % 36.5 %; Mean Corpuscular Hemoglobin 28.3 pg (27-33); Mean Corpuscular Volume 91.4 fl (85-98); Mean Platelet Volume 9.8 fL (7.4-10.4); Monocytes # 0.6 10^3/uL (0.2-0.9); Monocytes % 7.9 %; Neutrophils # 3.71 10^3/uL (1.8-7.7); Neutrophils % 53.2 %; Nucleated Red Blood Cells % 0 %; Platelet Count 255 10^3/cmm (157-399); Red Blood Count 3.71 10^6/uL (3.85-5.65); Red Cell Distribution Width 16.3 % (12.1-15.1); White Blood Count 6.98 10^3/uL (3.29-11.43)
[2023-11-11 06:38] LABS: Anion Gap 16.6 (5-19); Blood Urea Nitrogen 28 mg/dL (8-23); Calcium 9.1 mg/dL (8.5-10.5); Carbon Dioxide 29 mmol/L (22-29); Chloride 97 mmol/L (98-107); Creatinine Clr Calc Pharmacy 47.8785; Glucose 114 mg/dL (65-115); Osmolality Calculated 294 mOsm/kg (285-295); Potassium 3.6 mmol/L (3.5-5.1); Sodium 139 mmol/L (136-145)
--- NOTE | 2023-11-11 07:00 | XACV_ITS ---
Exam Room: 2 Ht: 157 cm Wt: 78 kg BSA: 1.88 m2 Gender: Female : 1950 Any Known Allergies: Other Exam Priority: Routine Procedure(s): Procedure Description: Diagnostic procedure Procedure Description: Coronary Angiography Yissel GREENBERG; Diagnostic Cath Status: Elective Diagnostic Findings * Left Main has no disease. * Circumflex has no disease. * Right Coronary Artery has no disease. * Mid Left Anterior Descending: severe 90% stenosis, CHAVO: 3 flow. * Coronary angiography shows right dominance. * Right heart catheterizationPulmonary capillary wedge pressure 11 mm Hg PA mean: 27 mmHg RV 40/0 mmHg RA: 6 mm markNo significant stepup or intracardiac shunt noted. Conclusions 1. There is severe coronary artery disease with one vessel disease. 2. Normal left ventricular systolic function. Ejection fraction of 65%. Recommendations * Continue current medical management and risk factor modification. Diagnostic RX Recommendation: medical therapy and/or counseling Ventriculography Ejection Fraction: 65.0 % Left Ventriculography Findings: * Normal left ventricular ejection fraction. Pressures Phase:Rest AO : 137 / 76 ( 104 ) @ 8:52:00 AM 172 / 31 ( 89 ) @ 9:07:00 AM LV : 176 / 0 / 25 @ 9:06:00 AM 173 / 9 / 28 @ 9:07:00 AM RV : 40 / 0 / 8 @ 8:42:00 AM PA : 44 / 17 ( 27 ) @ 8:41:00 AM RA : a wave = 10 v wave = 7 mean = 6 @ 8:43:00 AM PCW : a wave = 12 v wave = 13 mean = 11 @ 8:42:00 AM O2 Content Phase:Rest PA : O2 Content O2: 60.4 @ 9:07:00 AM Saturations Phase:Rest AO : 94 @ 9:06:00 AM RA : 60 @ 9:07:00 AM RV : 56 @ 8:52:00 AM PA : 60 @ 9:07:00 AM Cardiac Output Phase:Rest Maritza : 4 @ 8:21:02 AM Maritza Cardiac Index: 2 @ 8:21:02 AM Flow Phase:Rest Qp : 4 @ 8:21:02 AM Qs : 4 @ 8:21:02 AM Clinical Evaluation EBL: 5mL-10mL Procedural Details Procedure Consent Obtained. Admit Source: Out Patient. Pre-Procedure Time Out. Identified patient by full name and date of as verbalized by the patient/guarantor. Does the consent match the physician's order: Yes. Accurate & Complete Informed Consent: Yes. Inpatient/Outpatient History & Physical on Chart: Yes. If H&P is completed, is and addenduem needed: No; If yes, is the addendum complete: N/A. Visualize and Verify Site with Patient/Guarantor: N/A. Relevant Radiology Images available: N/A. Pre-op teaching completed and patient verbalized understanding. The risks, benefits, and alternatives of sedation and/or procedure were discussed by physician. The patient agrees to continue. Procedure started. [facility] Clinical Fraility Score: 4: Vulnerable. Flavorings Compounder Indications: Worsening Angina. Chest Pain Symptom Assessment: Typical Angina Symptoms. Cardiovascular Instability: Yes, if yes, Persistant Ischemic Symptoms. Correct patient, site and procedure confirmed by cath team. Current diagnosis: Chest Pain. PERRLA. Strong, equal hand workforce management consultant bilaterally. Lungs clear x 5 lobes. IV Site on Arrival: 20 gauge in the left anticubital. IV Site on Arrival: 20 gauge in the right anticubital. IV Fluids: 0.9% NaCl at KVO. 0 mL infused prior to seed analysis laboratory assistant. Pre Procedural Pulses: bilateral posterior tibial was Doppled. Pre Procedural Pulses: bilateral posterior tibial was Doppled. right groin was prepped with chloroprep then draped in the usual sterile fashion. left groin was prepped with chloroprep then draped in the usual sterile fashion. right radial was prepped with chloroprep then draped in the usual sterile fashion. right brachial was prepped with chloroprep then draped in the usual sterile fashion. Physician notified. Baseline sample Acquired. HR: 80 BPM. Physician arrived. Physician scrubbed in. Immediate Pre-Procedure Time Out. Correct Patient: Yes; Correct Procedure: Yes; Correct Site: Yes; Correct Patient Position: Yes; Correct Supplies: Yes; Dried Flammable Prep: Yes; Blood Products Available: N/A;. Lidocaine 1% infiltrated to the right brachial. Wire inserted through the IV catheter. IVcatheter removed and 6 Fr sheath inserted over the wire. [place]-Derick MON catheter inserted. 0.25 [place] wire inserted. [place] wire removed. PA sample obtained. RV sample obtained. RA sample obtained. [place]ick out. Lidocaine 1% infiltrated to the right radial. Arterial access obtained. A 5 zambian TIG catheter in over wire. Oxygen started at 2liters/min via nasal canula. Multiple views taken of left coronary artery. Catheter redirected to the RCA. Multiple views taken of right coronary artery. Catheter removed over the exchange wire. A 5 zambian Angled Pig catheter in over wire. Catheter out. A 5 zambian Antwan catheter in over wire. Catheter out. A 5 zambian Angled Pig catheter in over wire. Catheter advanced across the LV. EDP Sample taken: LV 176/0,25; HR: 69 BPM; SpO2: 96%. LV gram performed in STEVENSON @ 10 mL/second for a total of 30 mL. EDP Sample taken: LV 173/9,28; HR: 80 BPM; SpO2: 97%. Pullback taken: LV Off; AO Off; Mean: , Peak to Peak: , SEP: ; HR: 73 BPM; SpO2: 96%. Catheter out. A Manual Compression was successful obtaining hemostatsis at the Right Brachial Vein insertion site. A TR Band was successful obtaining hemostatsis at the Right Radial artery insertion site. Physician scrubbed out. Post Procedure: Pulses reassessed and unchanged. PERRLA. Strong, equal hand workforce management consultant bilaterally. No VTE prophylaxis required. Medication's Wasted: Lidocaine 1% = 17 mL. Medication's Wasted: Nitro = 49.8 mg. Medication's Wasted: Heparin = 1000u. Medication's Wasted: Other = Fentanyl 75 mcg. Total IV fluids: 55 mL. Complications: none. Post-op diagnosis:Normal Coronaries, Normal RHC. Estimated blood loss: 5mL-10mL. Responsiveness - Normal response to verbal stimuli; alert and oriented, PERRLA. Airway - Unaffected, no intervention required; spontaneous ventilation. Circulation: W/N/L, pulses unchanged. Nausea/Vomiting: No. Procedure completed. Patient transferred by wheelchair to 1st floor. Vital chart was stopped. Access Site Site: Right Brachial Vein Sheath Size: 6 Fr Hemostasis Method: Manual Compression Hemostasis Success: Successful Site: Right Radial artery Sheath Size: 6 Fr Hemostasis Method: TR Band Hemostasis Success: Successful Procedure Medications Start: 7:23 AM Stop: 7:23 AM Medication: Versed Amount: 1 mg Route: I.V. Start: 7:48 AM Stop: 7:48 AM Medication: Versed Amount: 1 mg Route: I.V. Start: 7:48 AM Stop: 7:48 AM Medication: Fentanyl Amount: 25 mcg Route: I.V. Start: 7:49 AM Stop: 7:49 AM Medication: Nitrogylcerin Amount: 200 mcg Route: I.A. Start: 7:52 AM Stop: 7:52 AM Medication: Heparin Amount: 5000 units Route: I.V. I, the attending physician, have reviewed and verified all procedure medications. Yes, all medications given per verbal order History/Risk Factors Hypertension: Yes Dyslipidemia: No Peripheral Arterial Disease (PAD): No Myocardial Infarction (WA): No Obesity: Yes Renal Disease: No Tobacco Use: Current/Recent(w/in 1 year) Prior Interventions PCI: No CABG: No Valve Surgery: No Report Signatures Finalized by Tadeo Dey MD on 11/12/2023 05:11 PM
--- NOTE | 2023-11-11 07:25 | W.PM.OPSUD ---
Surgery/Procedure H&P Update DATE OF PROCEDURE: November 11, 2023 DATE H&P PERFORMED: 07/15/21 H&P UPDATE INFORMATION: I have reviewed H&P completed within last 30 days, I have examined patient prior to procedure and No changes to prior documentation PREOP DIAGNOSIS: Chest pain suggestive of angina, unexplained shortness of breath, aortic va PLANNED PROCEDURE: Operation Date: 11/11/23 07:00 Proposed Procedures p Cardiac Catheterization - [facility] W/WO LV & KARIN(Bilateral) - Tadeo Dey MD PATIENT REASSESSED PRIOR TO SEDATION, WITH NO CHANGE NOTED: Yes PHYSICAL EXAM: alert, oriented x 3, clear to auscultation bilaterally, regular rate & rhythm and operative site marked AIRWAY EVAL/ANESTHESIA PLAN: ASA II, Risks, benefits & alternatives of sedation and/or procedure discussed and Patient agrees to continue as planned ADDITIONAL INFORMATION: Mallampati 2
[2023-11-11 08:01] LABS: Arterial Blood Gas Hematocrit 21.7 % (37-47); Blood Gas Operator Identificat WALCI; Blood Gas Sample Type Not specified; HGB O2 Sat 51.6 % (95-100); Methemoglobin 1.2 % (0.4-1.5); Total Hemoglobin 7.1 g/dL (12-16)
[2023-11-11 08:03] LABS: Arterial Blood Gas Hematocrit 27.5 % (37-47); Blood Gas Operator Identificat WALCI; Blood Gas Sample Type Not specified; Carboxyhemoglobin 6.8 %THgb (0.4-20.1); HGB O2 Sat 55.6 % (95-100); Methemoglobin 1.2 % (0.4-1.5)
[2023-11-11 08:05] LABS: Arterial Blood Gas Hematocrit 19.8 % (37-47); Blood Gas Operator Identificat WALCI; Blood Gas Sample Type Not specified; Carboxyhemoglobin 6.8 %THgb (0.4-20.1); HGB O2 Sat 86.2 % (95-100); Methemoglobin 1.4 % (0.4-1.5); Total Hemoglobin 6.5 g/dL (12-16)
[2023-11-11 08:09] LABS: Arterial Blood Gas Hematocrit 25.5 % (37-47); Blood Gas Operator Identificat WALCI; Blood Gas Sample Type Not specified; Carboxyhemoglobin 6.9 %THgb (0.4-20.1); HGB O2 Sat 55.4 % (95-100); Methemoglobin 1.2 % (0.4-1.5); Total Hemoglobin 8.3 g/dL (12-16)
[2023-11-11] MEDS: sodium chloride 0.9% 1,000 ML 100 ML IV (08:25)
--- NOTE | 2023-11-11 08:52 | PC.NURSE ---
received from cardiac labview programmer in to room 112-1 at 0825 via w/c.report received.pt is alert and awake and oriented x 4.denies apin at present.sr on monitor.right wrist tr band on and inflated.right hand is slightly cool to touch and with brisk capillary refill.palpable radial pulse noted distal to tr band.no hematoma noted.pt instructed in activity restrictions s/p radial artery procedure...and instructed to notify staff for any bleeding,pain,numbness,sob..or for any concerns at all.pt verb understanding of instructions.
[2023-11-11] MEDS: albuterol 2.5 mg/3 mL Neb INHALATION (10:50)
--- NOTE | 2023-11-11 14:52 | PC.NURSE ---
discharge instructions given and explained.pt verb understanding of instructions.discharged via w/c to exit at this time.son to drive pt home
== END 2023-11-11 13:34 | disposition home or self-care (01) ==
LOC: CCL 05:36 → CSU 09:17
PROVIDERS: PCP Nurse Practitioner Family; Visit Provider Internal Medicine Cardiovascular Disease
DX: I25.10 Atherosclerotic heart disease of native coronary artery without angina pectoris (principal); E66.9 Obesity, unspecified; Z68.31 Body mass index [BMI] 31.0-31.9, adult; K21.9 Gastro-esophageal reflux disease without esophagitis; J44.9 Chronic obstructive pulmonary disease, unspecified; G47.30 Sleep apnea, unspecified; I11.0 Hypertensive heart disease with heart failure; I50.32 Chronic diastolic (congestive) heart failure
CPT/HCPCS: 36415; 80048; 82810; 85025; 93460; 94640; 96365; 96374; 99152; 99153; C1751; C1769; C1887; C1894; G0378; J1644; J2250; J3010; J3490; J7030; J7613; Q0163; Q9967

== ENCOUNTER → 2023-11-17 10:49 | Outpatient (BNVA) | payer MEDICARE, MEDICAID, SELFPAY | PROVIDERS: PCP Nurse Practitioner Family; Visit Provider Internal Medicine Rheumatology | DX: M06.041 Rheumatoid arthritis without rheumatoid factor, right hand (principal); M06.042 Rheumatoid arthritis without rheumatoid factor, left hand; Z79.899 Other long term (current) drug therapy; M47.816 Spondylosis without myelopathy or radiculopathy, lumbar region; M19.041 Primary osteoarthritis, right hand; M19.042 Primary osteoarthritis, left hand; F17.210 Nicotine dependence, cigarettes, uncomplicated | CPT/HCPCS: 99214 ==

== ENCOUNTER 2023-12-09 06:00 | Outpatient (RCR) | payer MEDICARE, MEDICAID, SELFPAY | END 2024-01-07 23:59 | disposition home or self-care (01) | LOC: APT 06:00 | PROVIDERS: PCP Nurse Practitioner Family; Visit Provider Nurse Practitioner Family | DX: G89.4 Chronic pain syndrome (principal); M70.60 Trochanteric bursitis, unspecified hip | CPT/HCPCS: 97110; 97140; 97530 ==

== ENCOUNTER 2024-01-08 06:00 | Outpatient (RCR) | payer MEDICARE, MEDICAID, SELFPAY | END 2024-02-07 23:59 | disposition home or self-care (01) | LOC: APT 06:00 | PROVIDERS: PCP Nurse Practitioner Family; Visit Provider Nurse Practitioner Family | DX: G89.4 Chronic pain syndrome (principal); M70.61 Trochanteric bursitis, right hip | CPT/HCPCS: 97110; 97530 ==

== ENCOUNTER → 2024-01-23 08:27 | Outpatient (BNVA) | payer MEDICARE, MEDICAID, SELFPAY | PROVIDERS: PCP Nurse Practitioner Family; Visit Provider Nurse Practitioner Family | DX: I25.119 Atherosclerotic heart disease of native coronary artery with unspecified angina pectoris (principal); R06.09 Other forms of dyspnea; J44.9 Chronic obstructive pulmonary disease, unspecified; F17.210 Nicotine dependence, cigarettes, uncomplicated; I11.0 Hypertensive heart disease with heart failure; I50.30 Unspecified diastolic (congestive) heart failure | CPT/HCPCS: 99214 ==

== ENCOUNTER 2024-03-06 11:05 | Emergency (ER) | payer MEDICARE, MEDICAID, SELFPAY ==
[2024-03-06 11:11] VITALS: BP 125/58; PULSE 85; TEMP 36.6; O2SAT 92; BMI 31.4
[2024-03-06 12:20] LABS: Basophils # 0.1 10^3/uL (0.0-0.1); Basophils % 0.6 %; Eosinophils # 0.1 10^3/uL (0.0-0.8); Eosinophils % 0.9 %; Hematocrit 33.5 % (36-47); Lymphocytes # 2.1 10^3/uL (0.8-4.8); Lymphocytes % 24.3 %; Mean Corpuscular HGB Conc 29.3 g/dL (30-55); Mean Corpuscular Volume 82.1 fl (85-98); Mean Platelet Volume 9.8 fL (7.4-10.4); Monocytes # 0.8 10^3/uL (0.2-0.9); Monocytes % 9.7 %; Neutrophils # 5.42 10^3/uL (1.8-7.7); Neutrophils % 64.1 %; Nucleated Red Blood Cells % 0 %; Platelet Count 189 10^3/cmm (157-399); Red Blood Count 4.08 10^6/uL (3.85-5.65); Red Cell Distribution Width 18.3 % (12.1-15.1); White Blood Count 8.45 10^3/uL (3.29-11.43)
[2024-03-06 12:38] LABS: Alanine Aminotransferase 16 U/L (0-33); Albumin Level 3.8 g/dL (3.5-5.2); Alkaline Phosphatase 88 U/L (35-105); Anion Gap 16.8 (5-19); Aspartate Amino Transferase 31 U/L (0-32); Blood Urea Nitrogen 22 mg/dL (8-23); Calcium 9.2 mg/dL (8.5-10.5); Carbon Dioxide 25 mmol/L (22-29); Chloride 99 mmol/L (98-107); Creatinine Clr Calc Pharmacy 58.7676; Globulin 3.1 g/dL (1.3-4.6); Glucose 113 mg/dL (65-115); Lipase 22 U/L (13-60); Osmolality Calculated 288 mOsm/kg (285-295); Potassium 3.8 mmol/L (3.5-5.1); Sodium 137 mmol/L (136-145); Total Bilirubin 0.3 mg/dL (0.15-1.2); Total Protein 6.9 g/dL (6.6-8.7)
--- NOTE | 2024-03-06 13:24 | W.ED.NAVMDI ---
HPI - Nausea/Vomiting/Diarrhea General: Chief complaint: Nausea/Vomiting/Diarrhea Stated complaint: n,v,d Time Seen by Provider: 03/06/24 13:04 Source: patient Mode of arrival: ambulatory Limitations: no limitations History of Present Illness: 73-year-old female who states that on Tuesday she had 2 episodes of diarrhea she states that she felt weak and then fell 1 time and struck her head states she has been having headache since then states that her diarrhea is since resolved she has had no vomiting states she has felt slightly weak but is mainly concerned she still has had a headache and will make sure she had no major head injuries Associated nausea: No Associated symtoms: Reports headache(s); Denies chest pain or nausea Related Data Home Medications Medication Instructions Recorded Confirmed cyclobenzaprine 10 mg tablet 10 mg PO BID PRN MUSCLE SPASMS 11/02/22 03/06/24 hydrocodone 10 mg-acetaminophen 1 tab PO DAILY 11/02/22 03/06/24 325 mg tablet pregabalin 150 mg capsule 150 mg PO 2XD 11/02/22 03/06/24 ropinirole 2 mg tablet 1 ea PO BEDTIME 11/02/22 03/06/24 diclofenac sodium 75 mg 75 mg PO BID 07/25/23 03/06/24 tablet,delayed release ibuprofen 800 mg tablet 800 mg PO Q8H PRN Pain 07/25/23 03/06/24 trazodone 150 mg tablet 150 mg PO DAILY PRN Insomnia 07/25/23 03/06/24 metoclopramide HCl 10 mg tablet 10 mg PO DAILY 03/06/24 03/06/24 ondansetron HCl 4 mg tablet 4 mg PO PRN PRN Nausea And Vomiting 03/06/24 03/06/24 pantoprazole 40 mg tablet,delayed 40 mg PO DAILY 03/06/24 03/06/24 release Previous Rx's Medication Instructions Recorded bumetanide 1 mg tablet 2 mg (2 x 1 mg) PO DAILY #180 tabs 09/23/21 acetaminophen 500 mg tablet 500 mg PO Q6H PRN pain #90 tabs 03/10/22 (Tylenol Extra Strength) spironolactone 25 mg tablet See Rx Instructions .Route 05/26/22 .COMPLEX #30 tabs lisinopril 40 mg tablet 40 mg PO DAILY #90 tabs 06/25/22 budesonide 160 mcg-glycopyr 9 2 inh inhalation BID #10.7 grams 02/15/23 mcg-formot 4.8 mcg/actuation HFA inhaler (Breztri Aerosphere) nitroglycerin 0.4 mg sublingual 0.4 mg sublingual Q5M PRN chest 09/06/23 tablet pain #30 tabs isosorbide mononitrate 30 mg 30 mg PO DAILY #30 tabs 10/20/23 tablet,extended release 24 hr hydroxychloroquine 200 mg tablet 200 mg PO BID #180 tabs 11/17/23 (Plaquenil) prednisone 20 mg tablet See Rx Instructions PO .COMPLEX 11/17/23 PRN joint pain flare #30 tabs sulfasalazine 500 mg tablet 1,000 mg (2 x 500 mg) PO BID #360 11/17/23 tabs metoprolol tartrate 100 mg tablet 100 mg PO BID #180 tabs 01/23/24 Allergies Allergy/AdvReac Type Severity Reaction Status Date / Time metronidazole [From Flagyl] Allergy Intermediate Sores on Verified 03/06/24 11:15 legs Review of Systems Const: Denies: fever(s), chills, body aches or change in appetite ENMT: Denies: throat pain or dental pain Card: Denies: chest pain Resp: Denies: dyspnea GI: Reports: vomiting; Denies: abdominal pain, nausea or diarrhea Musc: Denies: neck pain or back pain Skin/Breast: Denies: rash Neuro: Reports: headache(s) PFSH ED PFSH: Medical History Aortic valve disease Sacroiliac (ligament) sprain Bony pelvic pain Mixed stress and urge incontinence RLS (restless legs syndrome) History of cancer of vulva s/p excision and radiation therapy Lumbar spondylosis History of PFTs 05/2020: normal spirometry and lung volumes; isolated gas transfer suggestive of pulmonary vascular disease Bright red blood per rectum Altered mental state Arm and leg movements, uncontrollable Hypertension Anxiety about health GERD (gastroesophageal reflux disease) Osteoarthritis of both hands Atherosclerosis of coronary artery Seronegative rheumatoid arthritis of both hands Lumbar stenosis with neurogenic claudication Congestive heart failure Diastolic High risk medication use COPD (chronic obstructive pulmonary disease) Sleep apnea She chose not to treat with CPAP RLS (restless legs syndrome) DDD (degenerative disc disease) Chronic pain pain clinic in [facility] Tobacco abuse 2 ppd all of her adult life, 45 + years. Aortic regurgitation mild to moderate Surgical History History of cardiac catheterization 07/2020: moderate left main, stenosis, FFR 0.94, no hemodynamically significant History of colonoscopy 07/2021 History of appendectomy History of hernia repair History of colon surgery H/O: hysterectomy Total Hysterectomy in 1970 History of lung surgery H/O hemorrhoidectomy H/O cataract extraction S/P carpal tunnel release History of bilateral carpal tunnel release Family History Mother Diabetes Heart disease Hypertension Hyperchloremia Stroke Father Alcohol abuse Sister Dementia Stroke Social History Smoking and tobacco/nicotine status: current every day tobacco/nicotine user cigarettes Packs smoked per day: 2 Years cigarettes smoked: 60 Quit status (tobacco/nicotine): has tried quititng Alcohol intake: former Substance/Drug Use: never Caregiver/support person: Yes Lives independently: Yes Household members: none Marital status: Highest education level completed: GED or Equivalent service: No Current occupational status: retired and disabled Pets and animals: No Do you think of yourself as: Straight/Heterosexual Current gender identity: Female Brenda/Cheondoism: Uatsdin Physical Exam Const: COMMON NORMALS: no acute distress, patient oriented x3 and healthy appearing HENMT: COMMON NORMALS: normocephalic and atraumatic HEAD & SCALP: normocephalic and atraumatic Eye: COMMON NORMALS: conjunctivae normal CONJUNCTIVA: Yes conjunctivae normal Neck/C-Spine: COMMON NORMALS: full ROM and supple Chest: COMMONS NORMALS: normal inspection of the chest Resp: COMMON NORMALS: normal respiratory effort Cardio: COMMON NORMALS: regular rate, regular rhythm and No murmurs present (Cardio) RATE: regular rate RHYTHM: regular rhythm GI: COMMON NORMALS: Normal to inspection, nondistended, normoactive bowel sounds present, Soft to palpation, non-tender and no masses PALPATION: Yes Soft to palpation Extremity: COMMON NORMALS: normal to inspection and full ROM Neuro: COMMON NORMALS: patient oriented x3, moves all extremities and no focal motor deficits Psych: COMMON NORMALS: mental status grossly normal, Normal thought process present and cooperative THOUGHT PROCESS: Normal thought process present Skin: COMMON NORMALS: no rashes or lesions noted and no wounds GENERAL SKIN EXAM: no rashes or lesions noted Course Vital Signs: Vital signs: Vital Signs Temperature 97.9 F 03/06/24 11:11 Pulse Rate 85 03/06/24 11:11 Blood Pressure 130/60 03/06/24 14:01 Pulse Oximetry 95 03/06/24 14:01 Oxygen Delivery Me thod Room Air 03/06/24 11:11 MDM - Nausea/Vomiting/Diarrhea Medical Decision Making Patient presents here close head injury and she had episodes of diarrhea as well as since resolved she feels much improved here she does not want a wait for her head CT I went and spoke to her and informed her that they were getting ready to her head CT she states that she needs to leave with no longer having a headache did try to convince her to stay I feel she is stable for discharge informed her if she changes her mind she is to return she understands agrees to plan. Medical Records I reviewed the patient's medical records. Lab Data I reviewed the patient's lab results. 03/06/24 12:00 03/06/24 12:00 Laboratory Results WBC 8.45 10^3/uL (3.29-11.43) 03/06/24 12:00 RBC 4.08 10^6/uL (3.85-5.65) 03/06/24 12:00 Hgb 9.80 g/dL (11.27-16.99) L 03/06/24 12:00 Hct 33.5 % (36-47) L 03/06/24 12:00 MCV 82.1 fl (85-98) L 03/06/24 12:00 MCH 24.0 pg (27-33) L 03/06/24 12:00 MCHC 29.3 g/dL (30-55) L 03/06/24 12:00 RDW 18.3 % (12.1-15.1) H 03/06/24 12:00 Plt Count 189 10^3/cmm (157-399) 03/06/24 12:00 MPV 9.8 fL (7.4-10.4) 03/06/24 12:00 Neut % (Auto) 64.1 % 03/06/24 12:00 Lymph % (Auto) 24.3 % 03/06/24 12:00 [place] % (Auto) 9.7 % 03/06/24 12:00 Eos % (Auto) 0.9 % 03/06/24 12:00 Baso % (Auto) 0.6 % 03/06/24 12:00 Neut # (Auto) 5.42 10^3/uL (1.8-7.7) 03/06/24 12:00 Lymph # (Auto) 2.1 10^3/uL (0.8-4.8) 03/06/24 12:00 [place] # (Auto) 0.8 10^3/uL (0.2-0.9) 03/06/24 12:00 Eos # (Auto) 0.1 10^3/uL (0.0-0.8) 03/06/24 12:00 Baso # (Auto) 0.1 10^3/uL (0.0-0.1) 03/06/24 12:00 Nucleated RBC % (auto) 0 % 03/06/24 12:00 Nucleated RBCs # 0.0 /100WBC 03/06/24 12:00 Sodium 137 mmol/L (136-145) 03/06/24 12:00 Potassium 3.8 mmol/L (3.5-5.1) 03/06/24 12:00 Chloride 99 mmol/L (98-107) 03/06/24 12:00 Carbon Dioxide 25 mmol/L (22-29) 03/06/24 12:00 Anion Gap 16.8 (5-19) 03/06/24 12:00 BUN 22 mg/dL (8-23) 03/06/24 12:00 Creatinine 0.7 mg/dL (0.5-0.9) 03/06/24 12:00 GFR Calculation Not Reportable 03/06/24 12:00 Glucose 113 mg/dL (65-115) 03/06/24 12:00 Calculated Osmolality 288 mOsm/kg (285-295) 03/06/24 12:00 Calcium 9.2 mg/dL (8.5-10.5) 03/06/24 12:00 Total Bilirubin 0.3 mg/dL (0.15-1.2) 03/06/24 12:00 AST 31 U/L (0-32) 03/06/24 12:00 ALT 16 U/L (0-33) 03/06/24 12:00 Alkaline Phosphatase 88 U/L (35-105) 03/06/24 12:00 Total Protein 6.9 g/dL (6.6-8.7) 03/06/24 12:00 Albumin 3.8 g/dL (3.5-5.2) 03/06/24 12:00 Globulin 3.1 g/dL (1.3-4.6) 03/06/24 12:00 Lipase 22 U/L (13-60) 03/06/24 12:00 Urine Color Dark yellow (Yellow) A 03/06/24 13:32 Urine Appearance Clear (CLEAR) 03/06/24 13:32 Urine pH 5.5 (5-7) 03/06/24 13:32 Ur Specific [place] 1.027 (1.005-1.030) 03/06/24 13:32 Urine Protein 1+ (Negative) A 03/06/24 13:32 Urine Glucose (UA) Negative (Normal) 03/06/24 13:32 Urine Ketones Trace (Negative) 03/06/24 13:32 Urine Blood Negative (Negative) 03/06/24 13:32 Urine Nitrate Negative (Negative) 03/06/24 13:32 Urine Bilirubin 1+ (Negative) H 03/06/24 13:32 Urine Urobilinogen 1.0 mg/dL (Negative) 03/06/24 13:32 Ur Leukocyte Esterase Trace (Negative) A 03/06/24 13:32 Urine RBC 0-2 /hpf (0-2) 03/06/24 13:32 Urine WBC 6-10 /hpf (0-5) 03/06/24 13:32 Ur Squamous Epith Cells 11-20 /hpf (0-5) H 03/06/24 13:32 Amorphous Sediment Not Reportable 03/06/24 13:32 Urine Bacteria 1+ /hpf (NONE) H 03/06/24 13:32 Hyaline Casts 0.40 /lpf 03/06/24 13:32 No radiology studies performed this visit Discharge Plan Discharge Patient Disposition: Home Clinical Impression: Closed head injury Condition: Stable Prescriptions: No Action bumetanide 1 mg tablet 2 mg PO DAILY Qty: 180 3RF metoprolol tartrate 100 mg tablet 100 mg PO BID Qty: 180 2RF cyclobenzaprine 10 mg tablet 10 mg PO BID PRN (Reason: MUSCLE SPASMS) hydrocodone-acetaminophen 10-325 mg tablet 1 tab PO DAILY ropinirole 2 mg tablet 1 ea PO BEDTIME pregabalin 150 mg capsule 150 mg PO 2XD ibuprofen 800 mg tablet 800 mg PO Q8H PRN (Reason: Pain) trazodone 150 mg tablet 150 mg PO DAILY PRN (Reason: Insomnia) diclofenac sodium 75 mg tablet,delayed release (DR/EC) 75 mg PO BID hydroxychloroquine [Plaquenil] 200 mg tablet 200 mg PO BID Qty: 180 1RF prednisone 20 mg tablet See Rx Instructions PO .COMPLEX PRN (Reason: joint pain flare) Qty: 30 1RF Rx Instructions: take 1 or 2 tab daily for up to 7 days as needed for arthritis flare PO PRN; sulfasalazine 500 mg tablet 1,000 mg PO BID Qty: 360 1RF acetaminophen [Tylenol Extra Strength] 500 mg tablet 500 mg PO Q6H PRN (Reason: pain) Qty: 90 0RF spironolactone 25 mg tablet See Rx Instructions .ROUTE .COMPLEX Qty: 30 5RF Dose Instruction: TAKE ONE TABLET BY MOUTH EVERY MORNING FOR EDEMA Rx Instructions: TAKE ONE TABLET BY MOUTH EVERY MORNING FOR EDEMA lisinopril 40 mg tablet 40 mg PO DAILY Qty: 90 3RF Breztri Aerosphere 160-9-4.8 mcg/actuation HFA aerosol inhaler 2 inh inhalation BID Qty: 10.7 6RF nitroglycerin 0.4 mg tablet, sublingual 0.4 mg sublingual Q5M PRN (Reason: chest pain) Qty: 30 2RF Rx Instructions: do not exceed 3 doses per episode isosorbide mononitrate 30 mg tablet extended release 24 hr 30 mg PO DAILY Qty: 30 0RF ondansetron HCl 4 mg tablet 4 mg PO PRN PRN (Reason: Nausea And Vomiting) pantoprazole 40 mg tablet,delayed release (DR/EC) 40 mg PO DAILY metoclopramide HCl 10 mg tablet 10 mg PO DAILY Discharge Orders: Discharge ED (Routine); Ordered 03/06/24 Ordered By: Michael Gtz Referrals: Inocencia Jaime APN [Primary Care Provider] - Discharge Diet: Advance as tolerated Discharge Activity: Resume usual activity Patient Instructions: Head Injury (ED) Coding Level of Care Code ED Kiln Car Unloader for Tracy Medrano
[2024-03-06] MEDS: sodium chloride 0.9% 1,000 ML 999 ML IV (13:31)
[2024-03-06 13:44] LABS: Bilirubin Urine 1+ (Negative); Blood Urine Negative (Negative); Glucose Urine UA Negative (Normal); Ketones Urine Trace (Negative); Leukocyte Esterase Urine Trace (Negative); Nitrate Urine Negative (Negative); Protein Urine 1+ (Negative); Specific Gravity, Urine 1.027 (1.005-1.030); Urine Appearance Clear (CLEAR); Urine Color Dark Yellow (Yellow); pH Urine 5.5 (5-7)
[2024-03-06 13:46] VITALS: BP 150/49; O2SAT 95
[2024-03-06 13:49] LABS: Add Urine Microscopic? YES; Bacteria Urine 1+ /hpf; RBC Urine 0-2 /hpf (0-2)
[2024-03-06 13:51] LABS: Add Urine Culture? No
[2024-03-06 14:01] VITALS: BP 130/60; O2SAT 95
== END 2024-03-06 14:16 | disposition home or self-care (01) ==
PROVIDERS: Emergency Provider Emergency Medicine; PCP Nurse Practitioner Family
DX: S09.8XXA Other specified injuries of head, initial encounter (principal); F17.210 Nicotine dependence, cigarettes, uncomplicated; J44.9 Chronic obstructive pulmonary disease, unspecified; I25.10 Atherosclerotic heart disease of native coronary artery without angina pectoris
CPT/HCPCS: 80053; 81001; 83690; 85025; 99283; J7030

== ENCOUNTER 2024-03-13 18:02 | Inpatient (IN) | payer MEDICARE, MEDICAID, SELFPAY ==
[2024-03-13] VITALS (21 sets, daily range): BP systolic 124–165; BP diastolic 45–102; PULSE 71–83; RESP 15–91; TEMP 35.5; O2SAT 90–97
--- NOTE | 2024-03-13 18:09 | CTR_ITS ---
PROCEDURE INFORMATION: Exam: CT Head Without Contrast Exam date and time: 03/13/2024 6:53 PM Age: 73 years old Clinical indication: Altered mental status/memory loss; Confusion or disorientation; Additional info: AMS TECHNIQUE: Imaging protocol: Computed tomography of the head without contrast. Radiation optimization: All CT scans at this facility use at least one of these dose optimization techniques: automated exposure control; mA and/or kV adjustment per patient size (includes targeted exams where dose is matched to clinical indication); or iterative reconstruction. COMPARISON: CT head wo con* [id number] 08/31/2021 10:30 AM RADIATION DOSE METRICS: Total DLP (mGy-cm): 1154.28 FINDINGS: Brain: Periventricular white matter changes likely related to chronic ischemic small vessel disease. No intracranial mass, hemorrhage or recent infarct. Brain atrophy present. Cerebral ventricles: No ventriculomegaly. Paranasal sinuses: Visualized sinuses are unremarkable. No fluid levels. Mastoid air cells: Visualized mastoid air cells are well aerated. Bones: Unremarkable. No acute fracture. Soft tissues: Unremarkable. CT/CT head wo con* [id number] IMPRESSION: No acute intracranial abnormality.
--- NOTE | 2024-03-13 18:09 | XRR_ITS ---
PROCEDURE INFORMATION: Exam: XR Chest Exam date and time: 03/13/2024 6:43 PM Age: 73 years old Clinical indication: Other: AMS TECHNIQUE: Imaging protocol: Radiologic exam of the chest. Views: 1 view. COMPARISON: CT angio chest PE protcl [id number] 10/20/2023 2:08 PM FINDINGS: Lungs: Unremarkable. No consolidation. Pleural spaces: Unremarkable. No pleural effusion. No pneumothorax. Heart/Mediastinum: Stable cardiomegaly. An epicardial fat pad noted. The Vasculature: Calcific plaque involves the aortic knob. Bones/joints: Mild degenerative changes involve the spine. XR/XR chest 1V portable [id number] IMPRESSION: No acute abnormality.
--- NOTE | 2024-03-13 18:10 | ECG_ITS ---
[facility] Date: 2024-03-13 Pat Name: Tatiana Alvarez Department: Room: Gender: Female Director Of Marketing Analytics: : 1950 Requested By: Michael Gtz Order Number: [id number] Shayy MD: Marquis Strickland M.D. Measurements Intervals Krebs Rate: 75 P: 73 TN: 153 QRS: 83 QRSD: 85 T: 52 QT: 399 QTc: 447 Interpretive Statements SINUS RHYTHM NONSPECIFIC ST & T-WAVE ABNORMALITY Compared to ECG 10/20/2023 14:24:28 T-wave abnormality now present Sinus bradycardia no longer present Electronically Signed On 03-15-2024 22:02:10 JUDO TEACHER by Marquis Strickland M.D. [email or web address]
--- NOTE | 2024-03-13 18:12 | W.ED.AMS ---
HPI - Altered Mental Status General: Chief Complaint: Altered Mental Status Stated Complaint: unresp/ v/ Time Seen by Provider: 03/13/24 18:04 Source: EMS Mode of arrival: EMS Limitations: altered mental status History of Present Illness: 73-year-old female is brought in by EMS for altered mental status per EMS. Son last seen her normal yesterday at 5 PM when the house today and found her in altered in the floor and had vomited. Per EMS patient had some hypotension upon arrival her blood pressure here is improved she is hypoxic as well patient here will awake to painful stimuli but not answer any questions. Related Data Home Medications ?Medication ?Instructions ?Recorded ?Confirmed cyclobenzaprine 10 mg tablet 10 mg PO BID PRN MUSCLE SPASMS 11/02/22 03/14/24 hydrocodone 10 mg-acetaminophen 1 tab PO DAILY 11/02/22 03/14/24 325 mg tablet pregabalin 150 mg capsule 150 mg PO 2XD 11/02/22 03/14/24 ropinirole 2 mg tablet 2 mg PO BEDTIME 11/02/22 03/14/24 diclofenac sodium 75 mg 75 mg PO BID 07/25/23 03/14/24 tablet,delayed release ibuprofen 800 mg tablet 800 mg PO Q8H PRN Pain 07/25/23 03/14/24 trazodone 150 mg tablet 150 mg PO DAILY PRN Insomnia 07/25/23 03/14/24 metoclopramide HCl 10 mg tablet 10 mg PO DAILY 03/06/24 03/14/24 ondansetron HCl 4 mg tablet 4 mg PO PRN PRN Nausea And Vomiting 03/06/24 03/14/24 pantoprazole 40 mg tablet,delayed 40 mg PO DAILY 03/06/24 03/14/24 release escitalopram oxalate 10 mg tablet 10 mg PO DAILY 03/14/24 03/14/24 spironolactone 25 mg tablet 25 mg PO QAM 03/14/24 03/14/24 Previous Rx's ?Medication ?Instructions ?Recorded bumetanide 1 mg tablet 2 mg (2 x 1 mg) PO DAILY #180 tabs 09/23/21 acetaminophen 500 mg tablet 500 mg PO Q6H PRN pain #90 tabs 03/10/22 (Tylenol Extra Strength) lisinopril 40 mg tablet 40 mg PO DAILY #90 tabs 06/25/22 budesonide 160 mcg-glycopyr 9 2 inh inhalation BID #10.7 grams 02/15/23 mcg-formot 4.8 mcg/actuation HFA inhaler (Breztri Aerosphere) nitroglycerin 0.4 mg sublingual 0.4 mg sublingual Q5M PRN chest 09/06/23 tablet pain #30 tabs isosorbide mononitrate 30 mg 30 mg PO DAILY #30 tabs 10/20/23 tablet,extended release 24 hr hydroxychloroquine 200 mg tablet 200 mg PO BID #180 tabs 11/17/23 (Plaquenil) prednisone 20 mg tablet See Rx Instructions PO .COMPLEX 11/17/23 PRN joint pain flare #30 tabs sulfasalazine 500 mg tablet 1,000 mg (2 x 500 mg) PO BID #360 11/17/23 tabs metoprolol tartrate 100 mg tablet 100 mg PO BID #180 tabs 01/23/24 Allergies Allergy/AdvReac Type Severity Reaction Status Date / Time metronidazole (From Flagyl) Allergy Intermediate Sores on Verified 03/06/24 11:15 legs Review of Systems General: Reports: ROS unobtainable due to mental status [facility] ED PFSH: Medical History Aortic valve disease Sacroiliac (ligament) sprain Bony pelvic pain Mixed stress and urge incontinence RLS (restless legs syndrome) History of cancer of vulva s/p excision and radiation therapy Lumbar spondylosis History of PFTs 05/2020: normal spirometry and lung volumes; isolated gas transfer suggestive of pulmonary vascular disease Bright red blood per rectum Altered mental state Arm and leg movements, uncontrollable Hypertension Anxiety about health GERD (gastroesophageal reflux disease) Osteoarthritis of both hands Atherosclerosis of coronary artery Seronegative rheumatoid arthritis of both hands Lumbar stenosis with neurogenic claudication Congestive heart failure Diastolic High risk medication use COPD (chronic obstructive pulmonary disease) Sleep apnea She chose not to treat with CPAP RLS (restless legs syndrome) DDD (degenerative disc disease) Chronic pain pain clinic in [facility] Tobacco abuse 2 ppd all of her adult life, 45 + years. Aortic regurgitation mild to moderate Surgical History History of cardiac catheterization 07/2020: moderate left main, stenosis, FFR 0.94, no hemodynamically significant History of colonoscopy 07/2021 History of appendectomy History of hernia repair History of colon surgery H/O: hysterectomy Total Hysterectomy in 1970 History of lung surgery H/O hemorrhoidectomy H/O cataract extraction S/P carpal tunnel release History of bilateral carpal tunnel release Family History Mother Diabetes Heart disease Hypertension Hyperchloremia Stroke Father Alcohol abuse Sister Dementia Stroke Social History Smoking and tobacco/nicotine status: current every day tobacco/nicotine user cigarettes Packs smoked per day: 2 Years cigarettes smoked: 60 Quit status (tobacco/nicotine): has tried quititng Alcohol intake: former Substance/Drug Use: never Caregiver/support person: Yes Lives independently: Yes Household members: none Marital status: Highest education level completed: GED or Equivalent service: No Current occupational status: retired and disabled Pets and animals: No Do you think of yourself as: Straight/Heterosexual Current gender identity: Female Brenda/Taoist: Scientology Physical Exam Const: COMMON NORMALS: negative for patient oriented x3 HENMT: COMMON NORMALS: normocephalic and atraumatic HEAD & SCALP: normocephalic and atraumatic Eye: COMMON NORMALS: Equal, round and reactive pupils present and EOMs intact bilaterally PUPIL: Yes Equal, round and reactive pupils present Neck/C-Spine: COMMON NORMALS: full ROM and supple Chest: COMMONS NORMALS: normal inspection of the chest and normal palpation of entire chest wall Resp: COMMON NORMALS: normal respiratory effort, No retractions, No use of accessory muscles and clear to auscultation bilaterally AUSCULTATION: clear to auscultation bilaterally Cardio: COMMON NORMALS: regular rate, regular rhythm and No murmurs present (Cardio) RATE: regular rate RHYTHM: regular rhythm GI: COMMON NORMALS: Normal to inspection, nondistended, normoactive bowel sounds present, Soft to palpation, non-tender and no masses PALPATION: Yes Soft to palpation Extremity: COMMON NORMALS: normal to inspection and full ROM Neuro: COMMON NORMALS: moves all extremities; negative for patient oriented x3 Psych: COMMON NORMALS: negative for mental status grossly normal Skin: COMMON NORMALS: no rashes or lesions noted and no wounds GENERAL SKIN EXAM: no rashes or lesions noted Course Vital Signs: Vital signs: Vital Signs Temperature 98.3 F 03/14/24 07:43 Pulse Rate 84 03/14/24 08:15 Respiratory Rate 20 H 03/14/24 08:15 Blood Pressure 118/70 03/14/24 07:43 Pulse Oximetry 94 03/14/24 08:15 Oxygen Delivery Me thod Nasal Cannula 03/14/24 08:15 Oxygen Flow Rate 4 03/14/24 08:15 Fraction of Inspir ed Oxygen 35 03/14/24 05:25 MDM - Altered Mental Status Medical Decision Making Patient presents here with altered mental status she is also in rhabdo patient is not a lytic candidate as her last known normal was over [address] here showed no acute abnormalities have given IV fluids spoke to hospitalist will admit at this time Medical Records I reviewed the patient's medical records. Lab Data I reviewed the patient's lab results. 03/14/24 06:15 03/14/24 06:15 Radiology Impressions Chest X-Ray 03/13/24 18:09 IMPRESSION: No acute abnormality. Head CT 03/13/24 18:09 IMPRESSION: No acute intracranial abnormality. Chest/Abdomen/Pelvis CT 03/13/24 21:12 IMPRESSION: 1. No acute abnormality. 2. Extensive atherosclerosis including coronary artery calcification. IMPRESSION: 1. Findings suggestive of a mild colitis. Clinical correlation advised. 2. Bilateral adrenal adenomas. 3. Atherosclerosis. 4. Questionable gallstones versus gallbladder sludge. No signs of acute cholecystitis. COMMENTS: Consistent with the [employer]'s Incidental Findings Committee white paper (J Am Bethany Radiol 2017): For any incidental adrenal lesion greater than or equal to 1 cm but less than or equal to 4 cm classified in this report as benign, likely benign, or containing fat (including classification as an adenoma or myelolipoma), no follow-up imaging is recommended per consensus recommendations based on imaging criteria. Further lab evaluation could be pursued if warranted based on clinical findings. Venous Duplex 03/13/24 22:42 IMPRESSION: No evidence of deep vein thrombosis. Laboratory Results WBC 7.44 10^3/uL (3.29-11.43) 03/13/24 18:29 RBC 5.00 10^6/uL (3.85-5.65) 03/13/24 18: Hgb 12.30 g/dL (11.27-16.99) 03/13/24 18: Hct 41.7 % (36-47) 03/13/24 18: MCV 83.4 fl (85-98) L 03/13/24 18: MCH 24.6 pg (27-33) L 03/13/24 18: MCHC 29.5 g/dL (30-55) L 03/13/24 18: RDW 19.5 % (12.1-15.1) H 03/13/24 18: Plt Count 216 10^3/cmm (157-399) 03/13/24 18: MPV 10.4 fL (7.4-10.4) 03/13/24 18: Lymph % (Auto) Not Reportable 03/13/24 18: [place] % (Auto) Not Reportable 03/13/24 18: Lymph # (Auto) Not Reportable 03/13/24 18: [place] # (Auto) Not Reportable 03/13/24 18: Total Counted 100 (0-100) 03/13/24 18: Atypical Lymphs % 0.0 % (0-5) 03/13/24 18: Absolute Neutrophils 5.6 10^3/cmm (1.4-6.5) 03/13/24 18: Segmented Neutrophils 39 % 03/13/24 18: Band Neutrophils 36.0 % 03/13/24 18: Absolute Lymphocytes 1.3 10^3/cmm (1.2-3.4) 03/13/24 18: Lymphocytes (Manual) 18 % 03/13/24 18: Monocytes (Manual) 4.0 % 03/13/24 18: Absolute Monocytes 0.3 10^3/cmm (0.1-0.6) 03/13/24 18: Eosinophils (Manual) 0 % 03/13/24 18: Absolute Eosinophils 0.0 10^3/cmm (0.0-0.7) 03/13/24 18: Basophils (Manual) 1.0 % 03/13/24 18:29 Absolute Basophils 0.1 10^3/cmm (0.0-0.2) 03/13/24 18:29 Metamyelocytes 2.0 % 03/13/24 18:29 Platelet Estimate Normal (Normal) 03/13/24 18:29 Giant Platelets Trace 03/13/24 18:29 Polychromasia Trace 03/13/24 18: PT 14.30 SECONDS (12.1-14.9) 03/13/24 18:48 INR 1.04 (0.8-1.2) 03/13/24 18:48 D-Dimer 3.17 ug/mLFEU (0-0.59) H 03/13/24 18:48 Specimen Type Arterial 03/13/24 18:08 Sample Site Radial, left 03/13/24 18:08 ABG pH 7.24 (7.35-7.45) L 03/13/24 18:08 ABG pCO2 45.3 mmHg (35-45) H 03/13/24 18:08 ABG pO2 47.9 mmHg (80.0-100.0) L 03/13/24 18:08 ABG PO2/FiO2 Ratio 228 03/13/24 18:08 ABG HCO3 19.5 mmol/L (22-26) L 03/13/24 18:08 ABG Base Excess -7.6 mmol/L (-2.0-2.0) L 03/13/24 18:08 Ismael Test Pos 03/13/24 18:08 Hematocrit 34.4 % (37-47) L 03/13/24 18:08 Hgb O2 Saturation 70.2 % (95-100) L 03/13/24 18:08 Carboxyhemoglobin 3.0 %THgb (0.4-20.1) 03/13/24 18:08 Methemoglobin 1.5 % (0.4-1.5) 03/13/24 18:08 Total Hemoglobin 11.2 g/dL (12-16) L 03/13/24 18:08 O2 Delivery Device Room air 03/13/24 18:08 FiO2 21.0 % 03/13/24 18:08 Office Executive ID [place] 03/13/24 18:08 Sodium 138 mmol/L (136-145) 03/13/24 18: Potassium 4.7 mmol/L (3.5-5.1) 03/13/24 18: Chloride 97 mmol/L (98-107) L 03/13/24 18: Carbon Dioxide 20 mmol/L (22-29) L 03/13/24 18: Anion Gap 25.7 (5-19) H 03/13/24 18: BUN 43 mg/dL (8-23) H 03/13/24 18: Creatinine 3.5 mg/dL (0.5-0.9) H 03/13/24 18: GFR Calculation Not Reportable 03/13/24 18: Glucose 111 mg/dL (65-115) 03/13/24 18: Calculated Osmolality 298 mOsm/kg (285-295) H 03/13/24 18: Lactic Acid 1.9 mmol/L (0.5-2.2) 03/13/24 18: Calcium 8.5 mg/dL (8.5-10.5) 03/13/24 18: Magnesium 1.9 mg/dL (1.7-2.3) 03/13/24 18: Total Bilirubin 0.2 mg/dL (0.15-1.2) 03/13/24 18:29 AST 94 U/L (0-32) H 03/13/24 18: ALT 29 U/L (0-33) 03/13/24 18: Alkaline Phosphatase 97 U/L (35-105) 03/13/24 18: Creatine Kinase 7315 U/L (26-192) H* D 03/14/24 00:30 Troponin T Baseline 69 ng/L (0-10) H 03/13/24 18:29 Troponin T 120 Minute 63.66 ng/L (0-10) H 03/13/24 20:40 Delta Troponin T -5.34 ABS# (0-10) L 03/13/24 20:40 Troponin T Hi Sens 6Hr 61.43 ng/L (0-10) H 03/14/24 00:30 Troponin T Hi Sens 6Hr Delta -7.57 ng/L (0-12) L 03/14/24 00:30 Total Protein 7.5 g/dL (6.6-8.7) 03/13/24 18: Albumin 4.0 g/dL (3.5-5.2) 03/13/24 18: Globulin 3.5 g/dL (1.3-4.6) 03/13/24 18: Lipase 51 U/L (13-60) 03/13/24 18:29 Vitamin B12 791 pg/mL (232-1245) 03/13/24 20:40 Procalcitonin 3.61 ng/mL (0-0.5) H 03/13/24 20:40 TSH 1.36 uIU/mL (0.27-4.20) 03/13/24 20:40 Urine Color Dark yellow (Yellow) A 03/13/24 18:41 Urine Appearance Turbid (CLEAR) A 03/13/24 18: Urine pH 5.0 (5-7) 03/13/24 18: Ur Specific [place] 1.028 (1.005-1.030) 03/13/24 18:41 Urine Protein 2+ (Negative) A 03/13/24 18:41 Urine Glucose (UA) Negative (Normal) 03/13/24 18:41 Urine Ketones Trace (Negative) 03/13/24 18:41 Urine Blood 3+ (Negative) A 03/13/24 18:41 Urine Nitrate Negative (Negative) 03/13/24 18:41 Urine Bilirubin 3+ (Negative) H 03/13/24 18:41 Urine Urobilinogen 1.0 mg/dL (Negative) 03/13/24 18:41 Ur Leukocyte Esterase 1+ (Negative) A 03/13/24 18:41 Urine RBC 6-10 /hpf (0-2) 03/13/24 18:41 Urine WBC 11-20 /hpf (0-5) H 03/13/24 18:41 Ur Squamous Epith Cells 6-10 /hpf (0-5) 03/13/24 18:41 Amorphous Sediment Not Reportable 03/13/24 18:41 Urine Bacteria None seen /hpf (NONE) 03/13/24 18: Hyaline Casts 225.91 /lpf 03/13/24 18:41 Urine Opiates Screen Positive ng/mL (Negative) H 03/13/24 18: Acetaminophen < 5.0 ug/mL (10-30) L 03/13/24 18: Ur Barbiturates Screen Negative ng/mL (Negative) 03/13/24 18:41 Ur Phencyclidine Scrn Negative ng/mL (Negative) 03/13/24 18:41 Ur Amphetamines Screen Negative ng/mL (Negative) 03/13/24 18:41 U Benzodiazepines Scrn Positive ng/mL (Negative) H 03/13/24 18:41 Urine Cocaine Screen Negative ng/mL (Negative) 03/13/24 18:41 U Marijuana (THC) Screen Negative ng/mL (Negative) 03/13/24 18:41 Ethyl Alcohol < 10 mg/dL (0-10) 03/14/24 00:30 Serum Ketones Negative (Negative) 03/13/24 18:29 Adenovirus (PCR) Not detected (NOT DETECT) 03/13/24 21:45 C. pneumoniae DNA (PCR) Not detected (NOT DETECT) 03/13/24 21:45 C. difficile (PCR) Negative (Negative) 03/13/24 18:45 Coronavirus 229E (PCR) Not detected (NOT DETECT) 03/13/24 21:45 Human Metapneumovir PCR Not detected (NOT DETECT) 03/13/24 21:45 Influenza A (H1) PCR Not detected (NOT DETECT) 03/13/24 21:45 Influ A (H1/09) PCR Not detected (NOT DETECT) 03/13/24 21:45 Influenza A (H3) PCR Not detected (NOT DETECT) 03/13/24 21:45 Influenza Type A (PCR) Not detected (NOT DETECT) 03/13/24 21:45 Influenza Type B (PCR) Not detected (NOT DETECT) 03/13/24 21:45 M. pneumoniae (PCR) Not detected (NOT DETECT) 03/13/24 21:45 Parainfluenza 1 (PCR) Not detected (NOT DETECT) 03/13/24 21:45 Parainfluenza 2 (PCR) Not detected (NOT DETECT) 03/13/24 21:45 Parainfluenza 3 (PCR) Not detected (NOT DETECT) 03/13/24 21:45 Parainfluenza 4 (PCR) Not detected (NOT DETECT) 03/13/24 21:45 RSV Type A (PCR) Not detected (NOT DETECT) 03/13/24 21:45 RSV Type B (PCR) Not detected (NOT DETECT) 03/13/24 21:45 Entero/Rhino (PCR) Not detected (NOT DETECT) 03/13/24 21:45 SARS-CoV-2 (PCR) Detected (NOT DETECT) A 03/13/24 21:45 All radiology interpretation(s) finalized by discharge EKG Data EKG 1: I personally reviewed and interpreted this EKG as follows: EKG interpretation date: 03/13/24 EKG interpretation time: 18:09 Interpretation: nsr hr [address] elevation qrs 85 qtc 428 Discharge Plan Discharge Patient Disposition: Admitted As Inpatient Admit Provider: Tadeo Lockwood Clinical Impression: Altered mental status, Acute kidney injury, Hypoxia, Rhabdomyolysis Condition: Stable Coding Level of Care Code ED Car Deliverer for Tracy Medrano
[2024-03-13 18:19] LABS: ABG PCO2 45.3 mmHg (35-45); ABG PH Result 7.24 (7.35-7.45); Arterial Blood Gas Hematocrit 34.4 % (37-47); Base Excess ABG -7.6 mmol/L (-2.0-2.0); Blood Gas Allen Test Pos; Blood Gas Operator Identificat WALCI; Blood Gas Sample Site Radial, left; Blood Gas Sample Type Arterial; HCO3 ABG 19.5 mmol/L (22-26); HGB O2 Sat 70.2 % (95-100); Methemoglobin 1.5 % (0.4-1.5); Oxygen Device ROOM AIR; PO2 ABG 47.9 mmHg (80.0-100.0); PO2 FiO2 Ratio Arterial Blood 228; Total Hemoglobin 11.2 g/dL (12-16)
--- NOTE | 2024-03-13 18:23 | PC.RESP ---
abg drawn on 03/13/24 @ 1822 is believed to be venous instead of arterial. dr. bruce notified. dr. bruce stated he was ok with it being a venous gas
[2024-03-13] MEDS: sodium chloride 0.9% 1,000 ML 999 ML IV ×3 (18:26→22:42)
[2024-03-13 18:38] LABS: Hematocrit 41.7 % (36-47); Mean Corpuscular HGB Conc 29.5 g/dL (30-55); Mean Corpuscular Hemoglobin 24.6 pg (27-33); Mean Corpuscular Volume 83.4 fl (85-98); Mean Platelet Volume 10.4 fL (7.4-10.4); Platelet Count 216 10^3/cmm (157-399); Red Cell Distribution Width 19.5 % (12.1-15.1); White Blood Count 7.44 10^3/uL (3.29-11.43)
[2024-03-13 18:53] LABS: Bilirubin Urine 3+ (Negative); Blood Urine 3+ (Negative); Glucose Urine UA Negative (Normal); Ketones Urine Trace (Negative); Leukocyte Esterase Urine 1+ (Negative); Nitrate Urine Negative (Negative); Protein Urine 2+ (Negative); Specific Gravity, Urine 1.028 (1.005-1.030); Urine Appearance Turbid (CLEAR); Urine Color Dark Yellow (Yellow)
[2024-03-13 18:58] LABS: Absolute Segmented Neutrophil 2.9 10/cmm (1.6-7.1); Band Neutrophils Absolute 2.7 10^3/cmm (0.0-1.2); Segmented Neutrophils 39 %; Slide Review Slide Review Perform; Total Cells Counted 100 (0-100)
[2024-03-13 18:58] LABS: Add Urine Microscopic? YES; Bacteria Urine None Seen /hpf; Hyaline Casts Urine 225.91 /lpf
[2024-03-13 18:59] LABS: Absolute Neutrophil 5.6 10^3/cmm (1.4-6.5); Basophils Absolute 0.1 10^3/cmm (0.0-0.2); Eosinophils 0 %; Giant Platelets Trace; Lymphocytes 18 %; Lymphocytes Absolute 1.3 10^3/cmm (1.2-3.4); Monocytes Absolute 0.3 10^3/cmm (0.1-0.6); Platelet Estimate Normal (Normal); Polychromasia Trace
[2024-03-13 19:01] LABS: Lactic Sepsis W/Reflex 1.9 mmol/L (0.5-2.2)
[2024-03-13 19:02] LABS: INR 1.04 (0.8-1.2)
[2024-03-13 19:02] LABS: Troponin(5th) Baseline 69 ng/L (0-10)
[2024-03-13 19:12] LABS: Add Urine Culture? Yes; UA Slide Review UA Slide Review Perf
[2024-03-13 19:12] LABS: Alanine Aminotransferase 29 U/L (0-33); Alkaline Phosphatase 97 U/L (35-105); Anion Gap 25.7 (5-19); Aspartate Amino Transferase 94 U/L (0-32); Blood Urea Nitrogen 43 mg/dL (8-23); Calcium 8.5 mg/dL (8.5-10.5); Carbon Dioxide 20 mmol/L (22-29); Chloride 97 mmol/L (98-107); Creatinine Clr Calc Pharmacy 13.4326; Globulin 3.5 g/dL (1.3-4.6); Glucose 111 mg/dL (65-115); Lipase 51 U/L (13-60); Magnesium 1.9 mg/dL (1.7-2.3); Osmolality Calculated 298 mOsm/kg (285-295); Potassium 4.7 mmol/L (3.5-5.1); Sodium 138 mmol/L (136-145); Thyroid Stimulating Hormone 2.32 uIU/mL (0.27-4.20); Total Bilirubin 0.2 mg/dL (0.15-1.2); Total Protein 7.5 g/dL (6.6-8.7)
[2024-03-13 19:19] LABS: Alcohol Level < 10 mg/dL (0-10)
[2024-03-13] MEDS: naloxone 0.4 mg/ml SDV IVP (19:42)
[2024-03-13 19:52] LABS: C.Diff PCR (Lab) NEGATIVE (Negative)
[2024-03-13 20:04] LABS: Amphetamines Screen Urine Negative (Negative); Barbiturates Screen Urine Negative (Negative); Benzodiazepines Screen Urine Positive (Negative); Cocaine Screen Urine Negative (Negative); Opiate Screen Urine Positive (Negative); PCP Screen Urine Negative (Negative); THC Screen Urine Negative (Negative)
--- NOTE | 2024-03-13 20:08 | ECG_ITS ---
[facility] Pat Name: Tatiana Alvarez Department: Room: Gender: Female Children'S Minister: : 1950 Requested By: Michael Gtz Order Number: [id number] Shayy MD: Marquis Strickland M.D. Measurements Intervals [place] Rate: 78 P: 72 SD: 153 QRS: 74 QRSD: 89 T: 40 QT: 397 QTc: 455 Interpretive Statements SINUS RHYTHM NONSPECIFIC ST & T-WAVE ABNORMALITY Compared to ECG 03/13/2024 18:09:19 No significant changes Electronically Signed On 03-15-2024 22:20:41 PATENT LAWYER by Marquis Strickland M.D. [id number] [id number]
[2024-03-13 20:56] LABS: Acetaminophen < 5.0 ug/mL (10-30); Creatine Phosphokinase 2878 U/L (26-192)
--- NOTE | 2024-03-13 21:12 | CTR_ITS ---
PROCEDURE INFORMATION: Exam: CT Chest Without Contrast; Diagnostic Exam date and time: 03/13/2024 9:34 PM Age: 73 years old Clinical indication: Other: AMS; Shortness of breath TECHNIQUE: Imaging protocol: Diagnostic computed tomography of the chest without contrast. Radiation optimization: All CT scans at this facility use at least one of these dose optimization techniques: automated exposure control; mA and/or kV adjustment per patient size (includes targeted exams where dose is matched to clinical indication); or iterative reconstruction. COMPARISON: CT angio chest PE protcl [id number] 10/20/2023 2:08 PM RADIATION DOSE METRICS: Total DLP (mGy-cm): 827.9 FINDINGS: Lungs: The lungs are free of consolidation. Minimal bibasilar discoid atelectasis. Pleural spaces: Unremarkable. No pneumothorax. No pleural effusion. Heart: The heart is mildly enlarged. Lymph nodes: Unremarkable. No enlarged lymph nodes. Vasculature: Extensive calcific plaque involves the thoracic aorta and coronary arteries. The thoracic aorta is free of aneurysm. Bones/joints: Unremarkable. No acute fracture. Soft tissues: Unremarkable. Other findings: Image quality degraded by respiratory motion artifact. PROCEDURE INFORMATION: Exam: CT Abdomen And Pelvis Without Contrast Exam date and time: 03/13/2024 9:34 PM Age: 73 years old Clinical indication: Other: AMS; Shortness of breath TECHNIQUE: Imaging protocol: Computed tomography of the abdomen and pelvis without contrast. Radiation optimization: All CT scans at this facility use at least one of these dose optimization techniques: automated exposure control; mA and/or kV adjustment per patient size (includes targeted exams where dose is matched to clinical indication); or iterative reconstruction. COMPARISON: CR XR lumbar spine 2-3V* [id number] 07/12/2022 2:35 PM RADIATION DOSE METRICS: Total DLP (mGy-cm): 827.9 FINDINGS: Liver: Normal. No mass. Gallbladder and biliary ducts: Questionable tiny gallstones versus gallbladder sludge. No gallbladder wall thickening or pericholecystic fluid. Pancreas: Normal. No ductal dilation. Spleen: Normal. No splenomegaly. Adrenal glands: There is a right adrenal adenoma measuring 2.1 cm. There is a left adrenal adenoma measuring 2.1 cm. Kidneys and ureters: Normal. No hydronephrosis. Stomach and bowel: There is mild wall thickening involving the transverse colon and ascending colon which may be exaggerated by collapsed. No signs of bowel obstruction. Appendix: No evidence of appendicitis. Intraperitoneal space: Unremarkable. No free air. No significant fluid collection. Vasculature: Extensive calcific plaque involves the abdominal aorta and iliac arteries. Lymph nodes: Unremarkable. No enlarged lymph nodes. Urinary bladder: Unremarkable as visualized. Reproductive: The uterus is surgically absent. Bones/joints: Postoperative changes from posterior fusion from L3 through the upper sacrum. Additional screws involve the sacroiliac joints. Soft tissues: Unremarkable. CT/[place] [id number] IMPRESSION: 1. No acute abnormality. 2. Extensive atherosclerosis including coronary artery calcification. IMPRESSION: 1. Findings suggestive of a mild colitis. Clinical correlation advised. 2. Bilateral adrenal adenomas. 3. Atherosclerosis. 4. Questionable gallstones versus gallbladder sludge. No signs of acute cholecystitis. COMMENTS: Consistent with the [employer]'s Incidental Findings Committee white paper (J Am Bethany Radiol 2017): For any incidental adrenal lesion greater than or equal to 1 cm but less than or equal to 4 cm classified in this report as benign, likely benign, or containing fat (including classification as an adenoma or myelolipoma), no follow-up imaging is recommended per consensus recommendations based on imaging criteria. Further lab evaluation could be pursued if warranted based on clinical findings.
--- NOTE | 2024-03-13 21:15 | PM.HP ---
Providers/Chief Complaint Primary Care Provider: Inocencia Jaime APN Chief Complaint: unresp/ v/ History of Present Illness Tatiana lAvarez is a 73 year old female with multiple comorbid conditions, last known well time was 5 PM, today son tried to call her around noon she did not nut picker, son checked on her and around 5 PM she was found on the floor, confused. Reportedly patient stayed on the floor for unknown amount of time, patient was not wearing oxygen, hypoxic. Patient has been noncompliant, she smokes 1 pack/day, does not use oxygen on daily basis which was recommended. Patient was put on 5 L nasal cannula by the EMS,, blood pressure improved with IV fluid hydration. I do not have EMS report. At the time of evaluation patient is able to tell me her name, date of , however extreme lethargic and fatigued, she is requiring 5 L of oxygen saturating 94%, she does not have any signs of stroke or meningitis. I requested CT chest abdomen pelvis and respiratory panel. She had diarrhea on arrival, C. difficile negative. CT chest abdomen pelvis unremarkable other than colitis. I have started her on Zosyn. Resp panel is pending. Review of medications and previous records revealed that patient was supposed to be on oxygen, takes Bumex, also takes nephrotoxic agent such as ibuprofen, hydroxychloroquine, I have started her on heparin secondary to abnormal D-dimer, We cannot do CTA chest because of worsening of creatinine, D-dimer 3.1, will request venous Doppler start her on heparin Troponin trending down, EKG unremarkable for infarctive changes Procalcitonin is high UA shows pyuria CT head unremarkable, ABG consistent with mixed respiratory and metabolic acidosis Lactic acid unremarkable Will check alcohol level and ketones Review of Systems General: Reports: ROS unobtainable due to mental status Medications/Allergies Home Medications ?Medication ?Instructions ?Recorded ?Confirmed ?Last Taken ?Type bumetanide 1 mg tablet 2 mg (2 x 1 mg) PO DAILY #180 tabs 09/23/21 03/06/24 03/06/24 Rx acetaminophen 500 mg tablet 500 mg PO Q6H PRN pain #90 tabs 03/10/22 03/06/24 Unknown Rx (Tylenol Extra Strength) spironolactone 25 mg tablet See Rx Instructions .Route 05/26/22 03/06/24 03/06/24 Rx .COMPLEX #30 tabs lisinopril 40 mg tablet 40 mg PO DAILY #90 tabs 06/25/22 03/06/24 03/06/24 Rx cyclobenzaprine 10 mg tablet 10 mg PO BID PRN MUSCLE SPASMS 11/02/22 03/06/24 03/06/24 History hydrocodone 10 mg-acetaminophen 1 tab PO DAILY 11/02/22 03/06/24 03/06/24 History 325 mg tablet pregabalin 150 mg capsule 150 mg PO 2XD 11/02/22 03/06/24 03/06/24 History ropinirole 2 mg tablet 1 ea PO BEDTIME 11/02/22 03/06/24 03/05/24 History budesonide 160 mcg-glycopyr 9 2 inh inhalation BID #10.7 grams 02/15/23 03/06/24 Unknown Rx mcg-formot 4.8 mcg/actuation HFA inhaler (Breztri Aerosphere) diclofenac sodium 75 mg 75 mg PO BID 07/25/23 03/06/24 03/06/24 History tablet,delayed release ibuprofen 800 mg tablet 800 mg PO Q8H PRN Pain 07/25/23 03/06/24 Unknown History trazodone 150 mg tablet 150 mg PO DAILY PRN Insomnia 07/25/23 03/06/24 03/06/24 History nitroglycerin 0.4 mg sublingual 0.4 mg sublingual Q5M PRN chest 09/06/23 03/06/24 03/06/24 Rx tablet pain #30 tabs isosorbide mononitrate 30 mg 30 mg PO DAILY #30 tabs 10/20/23 03/06/24 03/06/24 Rx tablet,extended release 24 hr hydroxychloroquine 200 mg tablet 200 mg PO BID #180 tabs 11/17/23 03/06/24 03/06/24 Rx (Plaquenil) prednisone 20 mg tablet See Rx Instructions PO .COMPLEX 11/17/23 03/06/24 Unknown Rx PRN joint pain flare #30 tabs sulfasalazine 500 mg tablet 1,000 mg (2 x 500 mg) PO BID #360 11/17/23 03/06/24 03/06/24 Rx tabs metoprolol tartrate 100 mg tablet 100 mg PO BID #180 tabs 01/23/24 03/06/2425 Rx metoclopramide HCl 10 mg tablet 10 mg PO DAILY 03/06/24 03/06/24 Unknown History ondansetron HCl 4 mg tablet 4 mg PO PRN PRN Nausea And Vomiting 03/06/24 03/06/24 Unknown History pantoprazole 40 mg tablet,delayed 40 mg PO DAILY 03/06/24 03/06/24 Unknown History release Allergies Allergy/AdvReac Type Severity Reaction Status Date / Time metronidazole (From Flagyl) Allergy Intermediate Sores on Verified 03/06/24 11:15 legs PFSH Acute PFSH: Medical History Aortic valve disease Sacroiliac (ligament) sprain Bony pelvic pain Mixed stress and urge incontinence RLS (restless legs syndrome) History of cancer of vulva s/p excision and radiation therapy Lumbar spondylosis History of PFTs 05/2020: normal spirometry and lung volumes; isolated gas transfer suggestive of pulmonary vascular disease Bright red blood per rectum Altered mental state Arm and leg movements, uncontrollable Hypertension Anxiety about health GERD (gastroesophageal reflux disease) Osteoarthritis of both hands Atherosclerosis of coronary artery Seronegative rheumatoid arthritis of both hands Lumbar stenosis with neurogenic claudication Congestive heart failure Diastolic High risk medication use COPD (chronic obstructive pulmonary disease) Sleep apnea She chose not to treat with CPAP RLS (restless legs syndrome) DDD (degenerative disc disease) Chronic pain pain clinic in [facility] Tobacco abuse 2 ppd all of her adult life, 45 + years. Aortic regurgitation mild to moderate Surgical History History of cardiac catheterization 07/2020: moderate left main, stenosis, FFR 0.94, no hemodynamically significant History of colonoscopy 07/2021 History of appendectomy History of hernia repair History of colon surgery H/O: hysterectomy Total Hysterectomy in 1970 History of lung surgery H/O hemorrhoidectomy H/O cataract extraction S/P carpal tunnel release History of bilateral carpal tunnel release Family History Mother Diabetes Heart disease Hypertension Hyperchloremia Stroke Father Alcohol abuse Sister Dementia Stroke Social History Smoking and tobacco/nicotine status: current every day tobacco/nicotine user cigarettes Packs smoked per day: 2 Years cigarettes smoked: 60 Quit status (tobacco/nicotine): has tried quititng Alcohol intake: former Substance/Drug Use: never Caregiver/support person: Yes Lives independently: Yes Household members: none Marital status: Highest education level completed: GED or Equivalent service: No Current occupational status: retired and disabled Pets and animals: No Do you think of yourself as: Straight/Heterosexual Current gender identity: Female Brenda/Uatsdin: Adventism Vitals/I&O/Wt Last Vital Signs Temp 95.9 F L 03/13/24 18:04 Pulse 75 03/13/24 20:15 Resp 20 H 03/13/24 20:15 BP 165/102 03/13/24 20:00 Pulse Ox 93 03/13/24 20:15 O2 Del Method Room Air 03/13/24 19:45 O2 Flow Rate 5 03/13/24 18:04 03/13/24 03/13/24 03/13/24 06:59 14:59 22:59 Intake Total 1000 / 1000 Balance 1000 / 1000 Weight last 48 hrs Weight 78.018 kg Physical Exam Narrative: Clinically patient is dehydrated Laying supine Able to follow commands, simple commands Responsive to verbal stimuli She was able to tell me her name, date of was able to shake hands and protrude her trunk Clinically dehydrated Currently on 5 L saturating 94% No sign of meningitis I did not appreciate any stroke related focal deficit Pupils equal and reactive Abdomen soft Lower extremity no edema Had mild cyanotic/blue tint to her toes, I was able to palpate dorsalis pedis pulse right greater than left Data 03/13/24 18:29 03/13/24 18:29 Micro: Microbiology 03/13/24 18:45 Stool Lactoferrin - Final Stool Occult Blood (FIT) - Final A&P Assessment and plan (1) High risk medication use: (2) Progressive pulmonary hypertension: (3) Aortic valve disease: (4) HICKEY (dyspnea on exertion): (5) Dysphagia causing pulmonary aspiration with swallowing: (6) Hemorrhoids: (7) Acute kidney injury: (8) Mixed stress and urge incontinence: (9) Seronegative rheumatoid arthritis of both hands: (10) Sacroiliac (ligament) sprain: (11) Rhabdomyolysis: (12) Altered mental status: (13) COPD (chronic obstructive pulmonary disease): Qualifiers: COPD type: emphysema Emphysema type: centrilobular Qualified Code(s): J43.2 - Centrilobular emphysema (14) Hypoxia: (15) SARAH (obstructive sleep apnea): (16) Tobacco dependence with current use: (17) Colitis: (18) Metabolic acidosis with respiratory acidosis: Plan Metabolic encephalopathy: Multifactorial Colitis: Dehydration lack of oxygen: Hypoxia Possible thromboembolic disease: Abnormal D-dimer noted Start heparin drip Requested venous Doppler Not a candidate to get CTA chest CT chest abdomen pelvis showed colitis At the time my evaluation patient is drowsy however able to tell me her name, date of , able to tell me that she smokes every day No sign of stroke or meningitis Mixed respiratory and metabolic acidosis with high anion gap Check ketones Hemoglobin A1c Requested respiratory panel Diarrhea: Colitis C. difficile ruled out Start Zosyn Acute on chronic hypoxic hypercarbic respiratory distress Will start patient on BiPAP Noncompliant, active smoker Currently on 5 L nasal cannula Syncope likely thromboembolic in nature versus hypoxia Start heparin drip for abnormal D-dimer Troponin trending down EKG unremarkable Clinical signs of dehydration: Severe dehydration Muscle injury 2878 CPK Trend CPK every 12 hours continue IV fluids Acute on chronic kidney disease Anticipate improvement with IV fluids Stop nephrotoxic agent Rheumatoid arthritis: Hold hydroxychloroquine, ibuprofen Judicious use of opioids Full code Advance diet once more awake and alert PDMP PDMP Reviewed: Not Reviewed Attestations Medical Necessity Statement*: More than 2 midnights anticipated for management of syncope, kidney injury, hypoxia Coding Level of Care Code Acute Code for Chg Fwd Diagnoses High risk medication use Z79.899 Progressive pulmonary hypertension I27.20 Aortic valve disease I35.9 HICKEY (dyspnea on exertion) R06.09 Dysphagia causing pulmonary aspiration with swallowing R13.19 Hemorrhoids K64.9 Acute kidney injury N17.9 Mixed stress and urge incontinence N39.46 Seronegative rheumatoid arthritis of both hands M06.041; M06.042 Sacroiliac (ligament) sprain S33.6XXA Rhabdomyolysis M62.82 Altered mental status R41.82 Centrilobular emphysema J43.2 COPD type: emphysema Emphysema type: centrilobular Hypoxia R09.02 SARAH (obstructive sleep apnea) G47.33 Tobacco dependence with current use F17.200 Colitis K52.9 Metabolic acidosis with respiratory acidosis E87.4
[2024-03-13 21:29] LABS: Troponin 5 2HR 63.66 ng/L (0-10)
[2024-03-13 21:31] LABS: Troponin 5 2HR Delta -5.34 ABS# (0-10)
[2024-03-13 21:41] LABS: D Dimer 3.17 ug/mLFEU (0-0.59)
[2024-03-13 22:05] LABS: Procalcitonin 3.61 ng/mL (0-0.5); Thyroid Stimulating Hormone 1.36 uIU/mL (0.27-4.20)
--- NOTE | 2024-03-13 22:42 | USR_ITS ---
PROCEDURE INFORMATION: Exam: US Duplex Lower Extremity Veins, Bilateral Exam date and time: 03/13/2024 11:21 PM Age: 73 years old Clinical indication: Edema, localized; Lower extremity, bilateral; Additional info: Swelling TECHNIQUE: Imaging protocol: Real-time duplex ultrasound of the bilateral extremities with 2-D snell scale, color Doppler flow and spectral waveform analysis including responses to compression and other maneuvers (when performed) with image documentation. Complete exam focused on the lower extremity veins. COMPARISON: US CV ankle brachial index [id number] 08/10/2023 8:04 AM FINDINGS: Right deep veins: Unremarkable. The common femoral, femoral, proximal profunda femoral and popliteal veins are patent without thrombus. Normal Doppler waveforms. Normal compressibility and/or augmentation response. Left deep veins: Unremarkable. The common femoral, femoral, proximal profunda femoral and popliteal veins are patent without thrombus. Normal Doppler waveforms. Normal compressibility and/or augmentation response. Superficial veins: Greater saphenous veins at the saphenofemoral junctions are patent bilaterally without thrombus. Soft tissues: Unremarkable. US/[place] [id number] IMPRESSION: No evidence of deep vein thrombosis.
[2024-03-13 23:10] LABS: Ketone (Acetest) Serum Negative (Negative)
[2024-03-13 23:43] LABS: Adenovirus Not Detected (NOT DETECT); Chlamydia Pneumoniae Not Detected (NOT DETECT); Coronavirus 229E,HKU1,NL63,OC4 Not Detected (NOT DETECT); Human Metapneumovirus Not Detected (NOT DETECT); Human Rhinovirus/Enterovirus Not Detected (NOT DETECT); Influenza A Not Detected (NOT DETECT); Influenza A H1 Not Detected (NOT DETECT); Influenza A H1-2009 Not Detected (NOT DETECT); Influenza A H3 Not Detected (NOT DETECT); Influenza B Not Detected (NOT DETECT); Mycoplasma Pneumoniae Not Detected (NOT DETECT); Parainfluenza Virus Type 1 Not Detected (NOT DETECT); Parainfluenza Virus Type 2 Not Detected (NOT DETECT); Parainfluenza Virus Type 3 Not Detected (NOT DETECT); Parainfluenza Virus Type 4 Not Detected (NOT DETECT); Respiratory Syncytial Virus A Not Detected (NOT DETECT); Respiratory Syncytial Virus B Not Detected (NOT DETECT)
[2024-03-13 23:52] LABS: SARS-COV-2 Detected (NOT DETECT)
[2024-03-13] MEDS: piperacillin-tazobactam 3.375 GM in sodium chloride 0.9% (plus) 50 ML IV (23:52)
[2024-03-14] VITALS (24 sets, daily range): BP systolic 89–151; BP diastolic 39–77; PULSE 67–86; RESP 15–22; TEMP 36.5–36.8; O2SAT 90–100
[2024-03-14] MEDS: heparin 5,000 unit/mL INJ 1 mL IVP (00:06)
[2024-03-14] MEDS: heparin drip 25,000 UNIT/500 ML PREMIX 22 UNIT IV (00:07)
--- NOTE | 2024-03-14 00:42 | PC.NURSE ---
This nurse started heparin drip @0007 at 22 ML/HR, TOÑO Esqueda and TOÑO Vivar both nurse verified.
[2024-03-14 01:05] LABS: Troponin 5 6HR 61.43 ng/L (0-10)
[2024-03-14 01:08] LABS: Troponin 5 6HR Delta -7.57 ng/L (0-12)
[2024-03-14] MEDS: sodium chloride 0.9% 1,000 ML 75 ML IV ×2 (01:08→12:32)
[2024-03-14 01:11] LABS: Alcohol Level < 10 mg/dL (0-10)
[2024-03-14 01:23] LABS: Creatine Phosphokinase 7315 U/L (26-192)
[2024-03-14 01:55] LABS: Vitamin B12 791 pg/mL (232-1245)
--- NOTE | 2024-03-14 03:17 | PC.NURSE ---
Pt arrived on med/surg unit at this time.
--- NOTE | 2024-03-14 03:19 | PC.NURSE ---
Pt will only opens eyes to painful stimuli and is unable to answer any questions or provide any history. Admission to be completed accordingly to pts mental status.
[2024-03-14] MEDS: remdesivir 200 MG in sodium chloride 0.9% (100 ml) 60 ML 100 MG IV (03:49)
--- NOTE | 2024-03-14 05:20 | PC.NURSE ---
Pt is now becoming more alert and obeying simple commands, opens eyes to verbal stimuli. Pt nods head that she is not in pain when asked.
[2024-03-14 05:24] LABS: ABG PCO2 39.9 mmHg (35-45); ABG PH Result 7.28 (7.35-7.45); Arterial Blood Gas Hematocrit 30.2 % (37-47); Base Excess ABG -7.5 mmol/L (-2.0-2.0); Blood Gas Sample Site Brachial, right; Blood Gas Sample Type Arterial; HCO3 ABG 18.7 mmol/L (22-26); Oxygen Device BIPAP; PO2 ABG 98.1 mmHg (80.0-100.0); PO2 FiO2 Ratio Arterial Blood 280
[2024-03-14 06:29] LABS: Basophils % 0.5 %; Eosinophils % 0.5 %; Lymphocytes # 1.1 10^3/uL (0.8-4.8); Lymphocytes % 12.7 %; Mean Corpuscular HGB Conc 30.3 g/dL (30-55); Mean Corpuscular Hemoglobin 25.5 pg (27-33); Mean Platelet Volume 10.4 fL (7.4-10.4); Monocytes # 0.6 10^3/uL (0.2-0.9); Monocytes % 7.3 %; Neutrophils # 6.54 10^3/uL (1.8-7.7); Neutrophils % 78.6 %; Nucleated Red Blood Cells % 0 %; Platelet Count 160 10^3/cmm (157-399); Red Blood Count 3.69 10^6/uL (3.85-5.65); Red Cell Distribution Width 19.1 % (12.1-15.1); White Blood Count 8.32 10^3/uL (3.29-11.43)
[2024-03-14 06:40] LABS: Anion Gap 18.7 (5-19); Blood Urea Nitrogen 40 mg/dL (8-23); Carbon Dioxide 19 mmol/L (22-29); Chloride 105 mmol/L (98-107); Creatinine Clr Calc Pharmacy 24.7662; Glucose 95 mg/dL (65-115); Magnesium 1.6 mg/dL (1.7-2.3); Osmolality Calculated 298 mOsm/kg (285-295); Phosphorus 4.4 mg/dL (2.5-4.5); Potassium 3.7 mmol/L (3.5-5.1); Sodium 139 mmol/L (136-145)
[2024-03-14 06:48] LABS: Slide Review Slide Review Perform
[2024-03-14 06:53] LABS: Partial Thromboplastin Time 162.8 SECONDS (23.9-36.7)
[2024-03-14] MEDS: pantoprazole 40 mg SDV IVP ×2 (07:52→18:23)
[2024-03-14] MEDS: dexamethasone 4 mg Tablet 6 MG PO (07:53)
[2024-03-14] MEDS: isosorbide mononitrate ER 30 mg Tablet PO (07:53)
[2024-03-14] MEDS: piperacillin-tazobactam 3.375 GM in sodium chloride 0.9% (plus) 50 ML IV (07:53)
[2024-03-14] MEDS: metoprolol tartrate 50 mg Tablet 100 MG PO ×2 (07:53→18:23)
[2024-03-14 12:07] LABS: Creatine Phosphokinase 5934 U/L (26-192)
--- NOTE | 2024-03-14 13:00 | P.PN_ITS ---
Subjective 2 Subjective: overnight labs abd H&P reviewed. patient continues to be encephalopathic, does not answer any questions at this time, opens eyes spontaneously and to commands Medications: Reviewed: Yes Vitals/I&O/Wt Last Vital Signs Temp 98.2 F 03/14/24 19:00 Pulse 84 03/14/24 20:12 Resp 22 H 03/14/24 20:01 BP 147/77 03/14/24 19:00 Pulse Ox 96 03/14/24 20:12 O2 Del Method Nasal Cannula 03/14/24 20:12 O2 Flow Rate 3 03/14/24 20:12 FiO2 35 03/14/24 05:25 03/14/24 03/14/24 03/14/24 06:59 14:59 22:59 Intake Total 1299.233 / 4299.233 1080 / 1080 100 / 1180 Balance 1299.233 / 4299.233 1080 / 1080 100 / 1180 Weight last 48 hrs Weight 78.154 kg Weight 78.018 kg Weight 78.018 kg Physical Exam 2 Narrative: General: ill apppearing, encephalopathic , keeps repeating names multiple times HEENT: PERRLA, pupils bilaterally equal and reactive, pallors not present Chest: crackles to auscultation B/L lung bases CVS: S1-S2 regular, no murmurs, no tachycardia, no gallops, no rubs Abdomen: Soft, nontender, no organomegaly, bowel sounds present Neuro: No focal deficits, does not follow any commands Data 03/14/24 06:15 03/14/24 06:15 Micro: Microbiology 03/13/24 18:45 Stool Lactoferrin - Final Stool Occult Blood (FIT) - Final A&P Assessment and plan (1) COVID-19: 73 F admitted with lethargy, AMS , being found on the floor RVP + COVID 19 Ct chest with atelactasis, no consolidation remdisivir to continue Dexamethasone 6mg ivp q24h (2) Congestive heart failure: crackles one xam B/L, developing LE edema D/c IVF lasix 20mg ivp q24h monitor renal function closely Qualifiers: Heart failure type: diastolic Heart failure chronicity: chronic Q ualified Code(s): I50.32 - Chronic diastolic (congestive) heart failure (3) Acute kidney injury: likely related to rhabdomyolysis holding off on further fluids for now given hypervolemia cr improving currently (4) Rhabdomyolysis: (5) Altered mental status: likely acute encephaopathy related to her acute viral illness (6) COPD (chronic obstructive pulmonary disease): duoneb q6h and budesonide inhalation systemic steroids as above Qualifiers: COPD type: emphysema Emphysema type: centrilobular Qualified Code(s): J43.2 - Centrilobular emphysema Plan elevated D dimer , negative LE duplex, d/c heparin drip, change to ppx dose PDMP PDMP Reviewed: Not Reviewed Attestations 2 Medical Necessity Statement*: continued admission for manage,ent of acute necephalopathy, covid 19 , copd exacerbation, iv diuretics Coding Level of Care Code Acute Code for Chg Fwd Diagnoses COVID-19 U07.1 Chronic diastolic congestive heart failure I50.32 Heart failure type: diastolic Heart failure chronicity: chronic Acute kidney injury N17.9 Rhabdomyolysis M62.82 Altered mental status R41.82 Centrilobular emphysema J43.2 COPD type: emphysema Emphysema type: centrilobular
[2024-03-14] MEDS: cefTRIAXone 1,000 mg SDV 1000 MG IVP (13:27)
[2024-03-14] MEDS: ipratropium-albuterol 3 mL Neb INHALATION ×2 (13:55→20:01)
[2024-03-14 15:43] LABS: MRSA PCR OZH (swab) NOT DETECTED (Not Detecte)
[2024-03-14] MEDS: budesonide 0.5 mg/2 mL Neb INHALATION (20:01)
[2024-03-14] MEDS: acetaminophen 500 mg Tablet PO (20:05)
[2024-03-14] MEDS: heparin 5,000 unit/mL INJ 1 mL 5000 UNIT SUBCUT (23:39)
[2024-03-14] MEDS: FUROsemide 10 mg/mL SDV 2mL 20 MG IVP (23:40)
[2024-03-15] VITALS (14 sets, daily range): BP systolic 171–193; BP diastolic 61–77; PULSE 62–86; RESP 16–22; TEMP 36.5–36.8; O2SAT 92–100
[2024-03-15] MEDS: ipratropium-albuterol 3 mL Neb INHALATION ×4 (02:22→21:01)
[2024-03-15 05:45] LABS: Basophils % 0.2 %; Hematocrit 29.3 % (36-47); Lymphocytes # 1.3 10^3/uL (0.8-4.8); Lymphocytes % 9.8 %; Mean Corpuscular HGB Conc 31.1 g/dL (30-55); Mean Corpuscular Hemoglobin 24.7 pg (27-33); Mean Corpuscular Volume 79.4 fl (85-98); Mean Platelet Volume 10.5 fL (7.4-10.4); Monocytes # 0.7 10^3/uL (0.2-0.9); Monocytes % 5.2 %; Neutrophils # 10.72 10^3/uL (1.8-7.7); Nucleated Red Blood Cells % 0.2 %; Platelet Count 174 10^3/cmm (157-399); Red Blood Count 3.69 10^6/uL (3.85-5.65); Red Cell Distribution Width 18.8 % (12.1-15.1); White Blood Count 12.76 10^3/uL (3.29-11.43)
[2024-03-15 06:01] LABS: Alanine Aminotransferase 75 U/L (0-33); Albumin Level 2.8 g/dL (3.5-5.2); Alkaline Phosphatase 74 U/L (35-105); Anion Gap 19.5 (5-19); Aspartate Amino Transferase 203 U/L (0-32); Blood Urea Nitrogen 36 mg/dL (8-23); Calcium 8.1 mg/dL (8.5-10.5); Carbon Dioxide 20 mmol/L (22-29); Chloride 108 mmol/L (98-107); Creatinine Clr Calc Pharmacy 58.6978; Globulin 2.8 g/dL (1.3-4.6); Glucose 128 mg/dL (65-115); Osmolality Calculated 308 mOsm/kg (285-295); Potassium 3.5 mmol/L (3.5-5.1); Sodium 144 mmol/L (136-145); Total Bilirubin 0.2 mg/dL (0.15-1.2); Total Protein 5.6 g/dL (6.6-8.7)
[2024-03-15 06:22] LABS: Slide Review Slide Review Perform
[2024-03-15] MEDS: budesonide 0.5 mg/2 mL Neb INHALATION ×2 (07:43→21:01)
[2024-03-15] MEDS: pantoprazole 40 mg SDV IVP ×2 (08:18→17:16)
[2024-03-15] MEDS: heparin 5,000 unit/mL INJ 1 mL 5000 UNIT SUBCUT ×2 (08:18→22:42)
[2024-03-15] MEDS: metoprolol tartrate 50 mg Tablet 100 MG PO ×2 (08:18→17:16)
[2024-03-15] MEDS: remdesivir 100 MG in sodium chloride 0.9% (100 ml) 80 ML IV (08:18)
[2024-03-15] MEDS: isosorbide mononitrate ER 30 mg Tablet PO (08:18)
[2024-03-15] MEDS: cefTRIAXone 1,000 mg SDV 1000 MG IVP (12:09)
--- NOTE | 2024-03-15 16:16 | P.PN_ITS ---
Subjective 2 Subjective: Patient is clinically better today. More awake and alert. Able to be more conversant, however remains confused. Medications: Reviewed: Yes Vitals/I&O/Wt Last Vital Signs Temp 97.7 F 03/15/24 16:05 Pulse 72 03/15/24 16:05 Resp 18 03/15/24 16:05 BP 175/77 03/15/24 16:05 Pulse Ox 98 03/15/24 16:05 O2 Del Method Room Air 03/15/24 16:05 O2 Flow Rate 2 03/15/24 16:05 FiO2 35 03/15/24 07:43 03/15/24 03/15/24 03/15/24 06:59 14:59 22:59 Intake Total 140 / 1440 218 / 218 Balance 140 / 1440 218 / 218 Weight last 48 hrs Weight 77.836 kg Weight 78.154 kg Weight 78.018 kg Weight 78.018 kg Physical Exam 2 Narrative: General: ill apppearing, encephalopathic , keeps repeating names multiple times HEENT: PERRLA, pupils bilaterally equal and reactive, pallors not present Chest: crackles to auscultation B/L lung bases CVS: S1-S2 regular, no murmurs, no tachycardia, no gallops, no rubs Abdomen: Soft, nontender, no organomegaly, bowel sounds present Neuro: No focal deficits, does not follow any commands Data 03/15/24 05:35 03/15/24 05:35 Micro: Microbiology 03/13/24 18:41 Urine Culture - Preliminary Urine,Clean Catch A&P Assessment and plan (1) COVID-19: 73 F admitted with lethargy, AMS , being found on the floor RVP + COVID 19 Ct chest with atelactasis, no consolidation remdisivir to continue Dexamethasone 6mg ivp q24h (2) Congestive heart failure: crackles one xam B/L, developing LE edema D/c IVF lasix 20mg ivp q24h monitor renal function closely Qualifiers: Heart failure type: diastolic Heart failure chronicity: chronic Q ualified Code(s): I50.32 - Chronic diastolic (congestive) heart failure (3) Acute kidney injury: likely related to rhabdomyolysis holding off on further fluids for now given hypervolemia cr improving currently (4) Rhabdomyolysis: (5) Altered mental status: likely acute encephaopathy related to her acute viral illness (6) COPD (chronic obstructive pulmonary disease): duoneb q6h and budesonide inhalation systemic steroids as above Qualifiers: COPD type: emphysema Emphysema type: centrilobular Qualified Code(s): J43.2 - Centrilobular emphysema Plan elevated D dimer , negative LE duplex, d/c heparin drip, change to ppx dose PDMP PDMP Reviewed: Not Reviewed Attestations 2 Medical Necessity Statement*: continued admission for manage,ent of acute necephalopathy, covid 19 , copd exacerbation, iv diuretics March 15, 2024 Patient appears to be clinically better today. She is more awake and alert. Able to have a simple conversation though confused about her whereabouts. Overall mental status appears to be improving metabolic encephalopathy. Continue remdesivir, IV steroids. Oxygen requirement is stable at 2 L/min. Worsening transaminitis, suspect this to be related to acute viral infection. Check sputum culture and Gram stain. Patient is currently expectorating at the time of this assessment. Continue diuresis with Lasix 20 mg IV daily. Continue scheduled nebulization. KIRT improving with creatinine now normalized at 0.8. Will start amlodipine 5 mg daily for blood pressure management. Continue to hold off on losartan and Aldactone for now given recent KIRT. Coding Level of Care Code Acute Code for Chg Fwd Diagnoses COVID-19 U07.1 Chronic diastolic congestive heart failure I50.32 Heart failure type: diastolic Heart failure chronicity: chronic Acute kidney injury N17.9 Rhabdomyolysis M62.82 Altered mental status R41.82 Centrilobular emphysema J43.2 COPD type: emphysema Emphysema type: centrilobular
[2024-03-15] MEDS: dexamethasone 10 mg/mL INJ 6 MG PO (17:16)
[2024-03-15] MEDS: amlodipine 5 mg Tablet PO (17:16)
[2024-03-15] MEDS: FUROsemide 10 mg/mL SDV 2mL 20 MG IVP (22:42)
[2024-03-16] VITALS (11 sets, daily range): BP systolic 152–182; BP diastolic 52–74; PULSE 62–98; RESP 15–22; TEMP 36.5–36.8; O2SAT 90–97
[2024-03-16] MEDS: ipratropium-albuterol 3 mL Neb INHALATION ×4 (02:22→21:05)
[2024-03-16] MEDS: metoprolol tartrate 50 mg Tablet 100 MG PO ×2 (09:09→17:05)
[2024-03-16] MEDS: remdesivir 100 MG in sodium chloride 0.9% (100 ml) 80 ML IV (09:09)
[2024-03-16] MEDS: pantoprazole 40 mg SDV IVP ×2 (09:10→17:05)
[2024-03-16] MEDS: amlodipine 5 mg Tablet PO (09:10)
[2024-03-16] MEDS: heparin 5,000 unit/mL INJ 1 mL 5000 UNIT SUBCUT ×2 (09:10→22:05)
[2024-03-16] MEDS: isosorbide mononitrate ER 30 mg Tablet PO (09:10)
[2024-03-16] MEDS: budesonide 0.5 mg/2 mL Neb INHALATION ×2 (09:58→21:04)
[2024-03-16] MEDS: cefTRIAXone 1,000 mg SDV 1000 MG IVP (12:25)
--- NOTE | 2024-03-16 16:27 | P.PN_ITS ---
Subjective 2 Subjective: Patient wakes up to calling name, however overall more lethargic compared to yesterday. She did wake up by the afternoon and was able to eat lunch, less verbal compared to yesterday Medications: Reviewed: Yes Vitals/I&O/Wt Last Vital Signs Temp 98.2 F 03/16/24 11:54 Pulse 68 03/16/24 15:05 Resp 18 03/16/24 14:58 BP 173/74 03/16/24 11:54 Pulse Ox 95 03/16/24 14:58 O2 Del Method Nasal Cannula 03/16/24 14:58 O2 Flow Rate 2 03/16/24 14:58 FiO2 35 03/15/24 07:43 03/16/24 03/16/24 03/16/24 06:59 14:59 22:59 Intake Total 0 / 318 410 / 410 Balance 0 / 318 410 / 410 Weight last 48 hrs Weight 75.523 kg Weight 77.836 kg Physical Exam 2 Narrative: General: ill apppearing, encephalopathic , keeps repeating names multiple times HEENT: PERRLA, pupils bilaterally equal and reactive, pallors not present Chest: crackles to auscultation B/L lung bases CVS: S1-S2 regular, no murmurs, no tachycardia, no gallops, no rubs Abdomen: Soft, nontender, no organomegaly, bowel sounds present Neuro: No focal deficits, does not follow any commands Data 03/15/24 05:35 03/15/24 05:35 Micro: Microbiology 03/15/24 14:10 Gram Stain - Final Sputum - Expectorated Sputum Sputum Culture - Preliminary 03/13/24 18:41 Urine Culture - Final Urine,Clean Catch A&P Assessment and plan (1) COVID-19: 73 F admitted with lethargy, AMS , being found on the floor RVP + COVID 19 Ct chest with atelactasis, no consolidation remdisivir to continue Dexamethasone 6mg ivp q24h (2) Congestive heart failure: crackles one xam B/L, developing LE edema D/c IVF lasix 20mg ivp q24h monitor renal function closely Qualifiers: Heart failure type: diastolic Heart failure chronicity: chronic Q ualified Code(s): I50.32 - Chronic diastolic (congestive) heart failure (3) Acute kidney injury: likely related to rhabdomyolysis holding off on further fluids for now given hypervolemia cr improving currently (4) Rhabdomyolysis: (5) Altered mental status: likely acute encephaopathy related to her acute viral illness (6) COPD (chronic obstructive pulmonary disease): duoneb q6h and budesonide inhalation systemic steroids as above Qualifiers: COPD type: emphysema Emphysema type: centrilobular Qualified Code(s): J43.2 - Centrilobular emphysema Plan elevated D dimer , negative LE duplex, d/c heparin drip, change to ppx dose PDMP PDMP Reviewed: Not Reviewed Attestations 2 Medical Necessity Statement*: continued admission for manage,ent of acute necephalopathy, covid 19 , copd exacerbation, iv diuretics March 15, 2024 Patient appears to be clinically better today. She is more awake and alert. Able to have a simple conversation though confused about her whereabouts. Overall mental status appears to be improving metabolic encephalopathy. Continue remdesivir, IV steroids. Oxygen requirement is stable at 2 L/min. Worsening transaminitis, suspect this to be related to acute viral infection. Check sputum culture and Gram stain. Patient is currently expectorating at the time of this assessment. Continue diuresis with Lasix 20 mg IV daily. Continue scheduled nebulization. KIRT improving with creatinine now normalized at 0.8. Will start amlodipine 5 mg daily for blood pressure management. Continue to hold off on losartan and Aldactone for now given recent KIRT. Mar 16, 2024: More lethargic again today however starting to wake up towards the evening. Was able to eat lunch, noted to have difficulty eating carrots, changed to dysphagia diet. Son reports that patient has been acting confused and disoriented for the past few weeks. He has noticed her to have defecated in the home without caring to make it to the bathroom, she has stepped out of the shower without realizing that she is naked. Per son, she is unaware of a lot of her medications and sometimes just pos a pill as it is time for her medication . She has had issues with polypharmacy in the past. It appears she had a similar episode of encephalopathy last year in the setting of an acute illness but then recovered back to baseline. Possible that patient may have some underlying dementia contributing. For now holding all opiates and lyrica owing to lethargy and poor mentation. Continue Remdisivir, abx. No noted diarrhea currently. Coding Level of Care Code Acute Code for Chg Fwd High MDM includes number and complexity of problems actively addressed during encounter, amount and/or complexity of data reviewed/ordered and described risk of complication, morbidity or mortality of management as documented Diagnoses COVID-19 U07.1 Chronic diastolic congestive heart failure I50.32 Heart failure type: diastolic Heart failure chronicity: chronic Acute kidney injury N17.9 Rhabdomyolysis M62.82 Altered mental status R41.82 Centrilobular emphysema J43.2 COPD type: emphysema Emphysema type: centrilobular
[2024-03-16] MEDS: dexamethasone 4 mg Tablet 6 MG PO (17:04)
[2024-03-17] VITALS (12 sets, daily range): BP systolic 134–177; BP diastolic 65–77; PULSE 62–92; RESP 14–20; TEMP 36.4–36.8; O2SAT 88–100; BMI 30.2
[2024-03-17] MEDS: ipratropium-albuterol 3 mL Neb INHALATION ×4 (02:06→19:33)
[2024-03-17 05:17] LABS: Basophils % 0.3 %; Hematocrit 36.4 % (36-47); Lymphocytes # 1.3 10^3/uL (0.8-4.8); Lymphocytes % 13.2 %; Mean Corpuscular HGB Conc 30.5 g/dL (30-55); Mean Corpuscular Hemoglobin 24.7 pg (27-33); Mean Corpuscular Volume 80.9 fl (85-98); Mean Platelet Volume 10.4 fL (7.4-10.4); Monocytes # 0.6 10^3/uL (0.2-0.9); Monocytes % 6.3 %; Neutrophils # 7.67 10^3/uL (1.8-7.7); Neutrophils % 78.5 %; Nucleated Red Blood Cells # 0.1 /100WBC; Nucleated Red Blood Cells % 0.9 %; Platelet Count 211 10^3/cmm (157-399); Red Cell Distribution Width 19.9 % (12.1-15.1); White Blood Count 9.78 10^3/uL (3.29-11.43)
[2024-03-17] MEDS: TRAMadol 50 mg Tablet PO (05:31)
[2024-03-17 05:42] LABS: Alanine Aminotransferase 86 U/L (0-33); Albumin Level 3.6 g/dL (3.5-5.2); Alkaline Phosphatase 109 U/L (35-105); Anion Gap 21.4 (5-19); Aspartate Amino Transferase 108 U/L (0-32); Blood Urea Nitrogen 24 mg/dL (8-23); Calcium 9.1 mg/dL (8.5-10.5); Carbon Dioxide 25 mmol/L (22-29); Chloride 99 mmol/L (98-107); Creatinine Clr Calc Pharmacy 57.6365; Globulin 3.5 g/dL (1.3-4.6); Glucose 156 mg/dL (65-115); Osmolality Calculated 301 mOsm/kg (285-295); Potassium 3.4 mmol/L (3.5-5.1); Sodium 142 mmol/L (136-145); Total Bilirubin 0.4 mg/dL (0.15-1.2); Total Protein 7.1 g/dL (6.6-8.7)
[2024-03-17] MEDS: budesonide 0.5 mg/2 mL Neb INHALATION ×2 (08:33→19:33)
[2024-03-17] MEDS: pantoprazole 40 mg SDV IVP (09:02)
[2024-03-17] MEDS: remdesivir 100 MG in sodium chloride 0.9% (100 ml) 80 ML IV (09:02)
[2024-03-17] MEDS: FUROsemide 40 mg Tablet PO (09:03)
[2024-03-17] MEDS: isosorbide mononitrate ER 30 mg Tablet PO (09:03)
[2024-03-17] MEDS: heparin 5,000 unit/mL INJ 1 mL 5000 UNIT SUBCUT ×2 (09:03→22:12)
[2024-03-17] MEDS: metoprolol tartrate 50 mg Tablet 100 MG PO ×2 (09:03→17:28)
[2024-03-17] MEDS: amlodipine 10 mg Tablet PO (09:03)
[2024-03-17] MEDS: cefTRIAXone 1,000 mg SDV 1000 MG IVP (11:49)
--- NOTE | 2024-03-17 16:48 | P.PN_ITS ---
Subjective 2 Subjective: Patient's mental status is waxing and waning. Earlier in the day she was able to have a conversation with the nurse. Was able to state her name, age, did not know which city she is in currently. At the time of my assessment in the afternoon, she was unable to answer any questions. She was making purposeful movements such as moving her nasal cannula, moving her legs to get comfortable in bed, however did not answer any questions. She tracks me as I try to walk across the room. Medications: Reviewed: Yes Vitals/I&O/Wt Last Vital Signs Temp 98.2 F 03/17/24 16:00 Pulse 82 03/17/24 16:00 Resp 18 03/17/24 16:00 BP 134/65 03/17/24 16:00 Pulse Ox 92 03/17/24 16:00 O2 Del Method Room Air 03/17/24 13:34 O2 Flow Rate 2 03/17/24 08:35 FiO2 35 03/15/24 07:43 03/17/24 03/17/24 03/17/24 06:59 14:59 22:59 Intake Total 120 / 650 340 / 340 Balance 120 / 650 340 / 340 Weight last 48 hrs Weight 75.07 kg Weight 75.523 kg Physical Exam 2 Narrative: General: ill apppearing, encephalopathic , keeps repeating names multiple times HEENT: PERRLA, pupils bilaterally equal and reactive, pallors not present Chest: crackles to auscultation B/L lung bases CVS: S1-S2 regular, no murmurs, no tachycardia, no gallops, no rubs Abdomen: Soft, nontender, no organomegaly, bowel sounds present Neuro: No focal deficits, does not follow any commands Data 03/17/24 04:24 03/17/24 04:24 Micro: Microbiology 03/15/24 14:10 Gram Stain - Final Sputum - Expectorated Sputum Sputum Culture - Preliminary Yeast species A&P Assessment and plan (1) COVID-19: 73 F admitted with lethargy, AMS , being found on the floor RVP + COVID 19 Ct chest with atelactasis, no consolidation remdisivir to continue Dexamethasone 6mg ivp q24h (2) Congestive heart failure: crackles one xam B/L, developing LE edema D/c IVF lasix 20mg ivp q24h monitor renal function closely Qualifiers: Heart failure type: diastolic Heart failure chronicity: chronic Q ualified Code(s): I50.32 - Chronic diastolic (congestive) heart failure (3) Acute kidney injury: likely related to rhabdomyolysis holding off on further fluids for now given hypervolemia cr improving currently (4) Rhabdomyolysis: (5) Altered mental status: likely acute encephaopathy related to her acute viral illness (6) COPD (chronic obstructive pulmonary disease): duoneb q6h and budesonide inhalation systemic steroids as above Qualifiers: COPD type: emphysema Emphysema type: centrilobular Qualified Code(s): J43.2 - Centrilobular emphysema Plan elevated D dimer , negative LE duplex, d/c heparin drip, change to ppx dose PDMP PDMP Reviewed: Not Reviewed Attestations 2 Medical Necessity Statement*: continued admission for manage,ent of acute necephalopathy, covid 19 , copd exacerbation, iv diuretics March 15, 2024 Patient appears to be clinically better today. She is more awake and alert. Able to have a simple conversation though confused about her whereabouts. Overall mental status appears to be improving metabolic encephalopathy. Continue remdesivir, IV steroids. Oxygen requirement is stable at 2 L/min. Worsening transaminitis, suspect this to be related to acute viral infection. Check sputum culture and Gram stain. Patient is currently expectorating at the time of this assessment. Continue diuresis with Lasix 20 mg IV daily. Continue scheduled nebulization. KIRT improving with creatinine now normalized at 0.8. Will start amlodipine 5 mg daily for blood pressure management. Continue to hold off on losartan and Aldactone for now given recent KIRT. Mar 16, 2024: More lethargic again today however starting to wake up towards the evening. Was able to eat lunch, noted to have difficulty eating carrots, changed to dysphagia diet. Son reports that patient has been acting confused and disoriented for the past few weeks. He has noticed her to have defecated in the home without caring to make it to the bathroom, she has stepped out of the shower without realizing that she is naked. Per son, she is unaware of a lot of her medications and sometimes just pos a pill as it is time for her medication . She has had issues with polypharmacy in the past. It appears she had a similar episode of encephalopathy last year in the setting of an acute illness but then recovered back to baseline. Possible that patient may have some underlying dementia contributing. For now holding all opiates and lyrica owing to lethargy and poor mentation. Continue Remdisivir, abx. No noted diarrhea currently. March 17, 2024 Patient is more alert today. Her mentation appears to wax and wane during course of the day. She is completing day 5 of remdesivir today. Patient has pulled out 3 IV lines due to disorientation. Will attempt to change most of her medications to oral. Blood pressure is better controlled after increasing Norvasc to 10 mg daily. Suspect that patient has underlying dementia which has been worsening over the past several weeks, likely made worse by acute viral infection. Continue to hold all opiates and other sedating medications while in the hospital. Awaiting appropriate disposition planning. In her current state patient is unsafe to live alone at home. Coding Level of Care Code Acute Code for Chg Fwd High MDM includes number and complexity of problems actively addressed during encounter, amount and/or complexity of data reviewed/ordered and described risk of complication, morbidity or mortality of management as documented Diagnoses COVID-19 U07.1 Chronic diastolic congestive heart failure I50.32 Heart failure type: diastolic Heart failure chronicity: chronic Acute kidney injury N17.9 Rhabdomyolysis M62.82 Altered mental status R41.82 Centrilobular emphysema J43.2 COPD type: emphysema Emphysema type: centrilobular
[2024-03-17] MEDS: nystatin 100,000 unit/mL UDC 5 mL 500000 UNIT PO ×2 (17:26→22:12)
[2024-03-17] MEDS: potassium chloride ER 20 mEq Tablet PO (17:27)
[2024-03-17] MEDS: dexamethasone 4 mg Tablet 6 MG PO (17:27)
--- NOTE | 2024-03-17 17:59 | PC.NURSE ---
Pt has pulled out three IVs this shift d/t disorientation. Notified Dr. Yadav, whom states pt can switch to oral medications. Notified family of all updates and pt status. Gave son, Stanley, informational packet on Dementia/Alzheimer to help answer questions.
[2024-03-18] VITALS (13 sets, daily range): BP systolic 125–172; BP diastolic 58–80; PULSE 60–87; RESP 16–20; TEMP 36.2–36.9; O2SAT 87–93
[2024-03-18] MEDS: ipratropium-albuterol 3 mL Neb INHALATION ×4 (01:22→21:12)
[2024-03-18 06:32] LABS: Basophils % 0.1 %; Hematocrit 36.2 % (36-47); Lymphocytes # 1.1 10^3/uL (0.8-4.8); Lymphocytes % 15.1 %; Mean Corpuscular HGB Conc 30.7 g/dL (30-55); Mean Corpuscular Hemoglobin 24.7 pg (27-33); Mean Corpuscular Volume 80.4 fl (85-98); Mean Platelet Volume 10.8 fL (7.4-10.4); Monocytes # 0.7 10^3/uL (0.2-0.9); Monocytes % 8.8 %; Neutrophils # 5.43 10^3/uL (1.8-7.7); Neutrophils % 72.9 %; Nucleated Red Blood Cells % 0.4 %; Platelet Count 227 10^3/cmm (157-399); Red Cell Distribution Width 19.9 % (12.1-15.1); White Blood Count 7.46 10^3/uL (3.29-11.43)
[2024-03-18 06:49] LABS: Alanine Aminotransferase 73 U/L (0-33); Albumin Level 3.3 g/dL (3.5-5.2); Alkaline Phosphatase 90 U/L (35-105); Anion Gap 20.2 (5-19); Aspartate Amino Transferase 63 U/L (0-32); Blood Urea Nitrogen 29 mg/dL (8-23); Calcium 8.9 mg/dL (8.5-10.5); Carbon Dioxide 25 mmol/L (22-29); Chloride 98 mmol/L (98-107); Creatinine Clr Calc Pharmacy 57.6887; Globulin 3.4 g/dL (1.3-4.6); Glucose 150 mg/dL (65-115); Osmolality Calculated 299 mOsm/kg (285-295); Potassium 3.2 mmol/L (3.5-5.1); Sodium 140 mmol/L (136-145); Total Bilirubin 0.4 mg/dL (0.15-1.2); Total Protein 6.7 g/dL (6.6-8.7)
[2024-03-18] MEDS: budesonide 0.5 mg/2 mL Neb INHALATION ×2 (08:11→21:12)
[2024-03-18] MEDS: levoFLOXacin 750 mg Tablet PO (09:17)
[2024-03-18] MEDS: metoprolol tartrate 50 mg Tablet 100 MG PO ×2 (09:17→17:19)
[2024-03-18] MEDS: pantoprazole DR 40 mg Tablet PO (09:17)
[2024-03-18] MEDS: heparin 5,000 unit/mL INJ 1 mL 5000 UNIT SUBCUT ×2 (09:17→21:46)
[2024-03-18] MEDS: isosorbide mononitrate ER 30 mg Tablet PO (09:17)
[2024-03-18] MEDS: nystatin 100,000 unit/mL UDC 5 mL 500000 UNIT PO ×4 (09:17→21:46)
[2024-03-18] MEDS: amlodipine 10 mg Tablet PO (09:18)
[2024-03-18] MEDS: FUROsemide 40 mg Tablet PO (14:27)
[2024-03-18] MEDS: potassium chloride ER 20 mEq Tablet 40 MEQ PO (14:27)
--- NOTE | 2024-03-18 14:36 | PC.NURSE ---
Lasix delay d/t needing potassium replacement
--- NOTE | 2024-03-18 16:19 | MRR_ITS ---
PROCEDURE INFORMATION: Exam: MR Head Without Contrast Exam date and time: 03/18/2024 5:51 PM Age: 73 years old Clinical indication: Altered mental status/memory loss; Confusion or disorientation; Additional info: Persistent encephalopathy, admitted with covid pna, improving by all parameters except TECHNIQUE: Imaging protocol: Magnetic resonance imaging of the head without contrast. COMPARISON: CT head wo con* [id number] 03/13/2024 6:53 PM FINDINGS: Brain: There is diffusion restriction present in both superior frontal lobes as well as in the [id number]-right temporal occipital region. There is mild associated FLAIR signal hyperintensity present in these regions without mass effect. Small foci of hemosiderin staining present in the left frontal lobe (series 701, image 20) and on image 11 in the left temporal occipital region consistent with petechial hemorrhage. There is a small region of chronic encephalomalacia in the superior left parietal lobe. [id number] involutional white matter changes and volume loss of the brain are stable. No midline shift. Cerebral ventricles: No ventriculomegaly. Stable cavum septum pellucidum et vergae. Bones: There are degenerative changes in the visualized upper cervical spine. Paranasal sinuses: No significant inflammation. No fluid levels. Mastoid air cells: No significant inflammation. Orbital cavities: Bilateral lens replacements. Soft tissues: Unremarkable. 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 Minimal petechial hemorrhage is seen in the left frontal infarct and also in the left temporal occipital region infarct. No significant mass effect present. Consider a cardioembolic source given multiplicity and bilaterality.
--- NOTE | 2024-03-18 16:22 | P.PN_ITS ---
Subjective 2 Subjective: Patient is more awake today compared to yesterday. Correctly tells me her name, age, date of . Acknowledges that she is in a hospital but does not know which one. Medications: Reviewed: Yes Vitals/I&O/Wt Last Vital Signs Temp 97.2 F L 03/18/24 12:00 Pulse 72 03/18/24 13:21 Resp 18 03/18/24 13:21 BP 131/66 03/18/24 12:00 Pulse Ox 89 L 03/18/24 13:21 O2 Del Method Nasal Cannula 03/18/24 13:21 O2 Flow Rate 2 03/18/24 13:21 FiO2 35 03/15/24 07:43 03/18/24 03/18/24 03/18/24 06:59 14:59 22:59 Intake Total 60 / 700 600 / 600 Balance 60 / 700 600 / 600 Weight last 48 hrs Weight 75.206 kg Weight 75.07 kg Physical Exam 2 Narrative: General: more alert, sitting in bed, answers some questions, but still lethargic HEENT: PERRLA, pupils bilaterally equal and reactive, pallors not present Chest: crackles to auscultation B/L lung bases CVS: S1-S2 regular, no murmurs, no tachycardia, no gallops, no rubs Abdomen: Soft, nontender, no organomegaly, bowel sounds present Neuro: No focal deficits, following commands Data 03/18/24 06:12 03/18/24 06:12 Micro: Microbiology 03/15/24 14:10 Gram Stain - Final Sputum - Expectorated Sputum Sputum Culture - Preliminary Yeast species A&P Assessment and plan (1) COVID-19: 73 F admitted with lethargy, AMS , being found on the floor RVP + COVID 19 Ct chest with atelactasis, no consolidation remdisivir to continue Dexamethasone 6mg ivp q24h (2) Congestive heart failure: crackles one xam B/L, developing LE edema D/c IVF lasix 20mg ivp q24h monitor renal function closely Qualifiers: Heart failure type: diastolic Heart failure chronicity: chronic Q ualified Code(s): I50.32 - Chronic diastolic (congestive) heart failure (3) Acute kidney injury: likely related to rhabdomyolysis holding off on further fluids for now given hypervolemia cr improving currently (4) Rhabdomyolysis: (5) Altered mental status: likely acute encephaopathy related to her acute viral illness (6) COPD (chronic obstructive pulmonary disease): duoneb q6h and budesonide inhalation systemic steroids as above Qualifiers: COPD type: emphysema Emphysema type: centrilobular Qualified Code(s): J43.2 - Centrilobular emphysema Plan elevated D dimer , negative LE duplex, d/c heparin drip, change to ppx dose PDMP PDMP Reviewed: Not Reviewed Attestations 2 Medical Necessity Statement*: continued admission for manage,ent of acute necephalopathy, covid 19 , copd exacerbation, iv diuretics March 15, 2024 Patient appears to be clinically better today. She is more awake and alert. Able to have a simple conversation though confused about her whereabouts. Overall mental status appears to be improving metabolic encephalopathy. Continue remdesivir, IV steroids. Oxygen requirement is stable at 2 L/min. Worsening transaminitis, suspect this to be related to acute viral infection. Check sputum culture and Gram stain. Patient is currently expectorating at the time of this assessment. Continue diuresis with Lasix 20 mg IV daily. Continue scheduled nebulization. KIRT improving with creatinine now normalized at 0.8. Will start amlodipine 5 mg daily for blood pressure management. Continue to hold off on losartan and Aldactone for now given recent KIRT. Mar 16, 2024: More lethargic again today however starting to wake up towards the evening. Was able to eat lunch, noted to have difficulty eating carrots, changed to dysphagia diet. Son reports that patient has been acting confused and disoriented for the past few weeks. He has noticed her to have defecated in the home without caring to make it to the bathroom, she has stepped out of the shower without realizing that she is naked. Per son, she is unaware of a lot of her medications and sometimes just pos a pill as it is time for her medication . She has had issues with polypharmacy in the past. It appears she had a similar episode of encephalopathy last year in the setting of an acute illness but then recovered back to baseline. Possible that patient may have some underlying dementia contributing. For now holding all opiates and lyrica owing to lethargy and poor mentation. Continue Remdisivir, abx. No noted diarrhea currently. March 17, 2024 Patient is more alert today. Her mentation appears to wax and wane during course of the day. She is completing day 5 of remdesivir today. Patient has pulled out 3 IV lines due to disorientation. Will attempt to change most of her medications to oral. Blood pressure is better controlled after increasing Norvasc to 10 mg daily. Suspect that patient has underlying dementia which has been worsening over the past several weeks, likely made worse by acute viral infection. Continue to hold all opiates and other sedating medications while in the hospital. Awaiting appropriate disposition planning. In her current state patient is unsafe to live alone at home. March 18, 2024 Patient was alert, able to answer some orientation questions correctly. However still pretty lethargic. Very slow in conversation. Noted to have cold sore over the lower lip today. Start Valtrex 1 g p.o. twice daily for the same. Patient continues to be pretty encephalopathic even though other parameters are improving. He has completed a 5-day course on remdesivir and antibiotics. Currently on levofloxacin 750 mg daily, which may be discontinued at discharge. Oxygen is at 2 L/min. Patient is on Lasix 40 mg p.o. daily. Her chest is currently clear to auscultation. Her blood pressure is better controlled today between 130-150 systolic. Increase Imdur to 60mg daily if remains elevated. Over the previous days blood pressure has been noted to be ranging between 1 70- 1 90 systolic. Concerned that persistent encephalopathy may be related to PRES, check MRI brain. D/c tramadol. Check ammonia level, LFTS are improving. Ct abdomen on admission with possible colitis, received abx for the same, clinically no abdominal pain or tenderness currently, diarrhea is resolved. Awaiting safe disposition planning. Patient is not safe to return home to living alone at this time. Coding Level of Care Code Acute Code for Chg Fwd High MDM includes number and complexity of problems actively addressed during encounter, amount and/or complexity of data reviewed/ordered and described risk of complication, morbidity or mortality of management as documented Diagnoses COVID-19 U07.1 Chronic diastolic congestive heart failure I50.32 Heart failure type: diastolic Heart failure chronicity: chronic Acute kidney injury N17.9 Rhabdomyolysis M62.82 Altered mental status R41.82 Centrilobular emphysema J43.2 COPD type: emphysema Emphysema type: centrilobular
[2024-03-18] MEDS: dexamethasone 4 mg Tablet 6 MG PO (17:18)
[2024-03-18] MEDS: valACYclovir 1,000 mg Tablet 1000 MG PO (17:20)
[2024-03-18] MEDS: acetaminophen 500 mg Tablet PO (17:20)
[2024-03-18] MEDS: hydroxychloroquine 200 mg Tablet PO (17:30)
--- NOTE | 2024-03-18 17:57 | PC.NURSE ---
Lab canceled COVID AG testing on Tatiana Alvarez. Notified Dr. Yadav.
[2024-03-18 18:01] LABS: Ammonia 43 umol/L (11-51); Creatine Phosphokinase 128 U/L (26-192)
[2024-03-18 23:04] LABS: Adenovirus Not Detected (NOT DETECT); Chlamydia Pneumoniae Not Detected (NOT DETECT); Coronavirus 229E,HKU1,NL63,OC4 Not Detected (NOT DETECT); Human Metapneumovirus Not Detected (NOT DETECT); Human Rhinovirus/Enterovirus Not Detected (NOT DETECT); Influenza A Not Detected (NOT DETECT); Influenza A H1 Not Detected (NOT DETECT); Influenza A H1-2009 Not Detected (NOT DETECT); Influenza A H3 Not Detected (NOT DETECT); Influenza B Not Detected (NOT DETECT); Mycoplasma Pneumoniae Not Detected (NOT DETECT); Parainfluenza Virus Type 1 Not Detected (NOT DETECT); Parainfluenza Virus Type 2 Not Detected (NOT DETECT); Parainfluenza Virus Type 3 Not Detected (NOT DETECT); Parainfluenza Virus Type 4 Not Detected (NOT DETECT); Respiratory Syncytial Virus A Not Detected (NOT DETECT); Respiratory Syncytial Virus B Not Detected (NOT DETECT)
[2024-03-18 23:06] LABS: SARS-COV-2 Detected (NOT DETECT)
[2024-03-19] VITALS (10 sets, daily range): BP systolic 93–159; BP diastolic 52–72; PULSE 64–88; RESP 15–20; TEMP 36.4–36.8; O2SAT 90–96
[2024-03-19] MEDS: acetaminophen 500 mg Tablet PO ×3 (00:55→17:23)
[2024-03-19] MEDS: ipratropium-albuterol 3 mL Neb INHALATION ×4 (02:27→20:42)
--- NOTE | 2024-03-19 08:49 | USCV_ITS ---
Tatiana Alvarez Age: 73 Gender: F : 1950 Exam Date: 03/19/2024 10:20 Ordering Phys: Aide Beauchamp MD Technologist: TREE Exam Location: [facility] Indication: cva BP: 110 / 68 HR: 78 Rhythm: Sinus Technical Quality: Adequate MEASUREMENTS (Male / Female) Normal Values 2D ECHO LV Diastolic Diameter PLAX 3.0 cm 4.2 - 5.9 / 3.9 - 5.3 cm LV Systolic Diameter PLAX 2.7 cm IVS Diastolic Thickness 2.2 cm 0.6 - 1.0 / 0.6 - 0.9 cm IVS Systolic Thickness 2.9 cm LVPW Diastolic Thickness 1.2 cm 0.6 - 1.0 / 0.6 - 0.9 cm LVPW Systolic Thickness 1.5 cm LVOT Diameter 2.1 cm LV Ejection Fraction 2D Teich 23.9 % LV Ejection Fraction MOD 4C 46.2 % LV Ejection Fraction MOD 2C 62.6 % LV Ejection Fraction 2C AL 65.0 % LA Diameter 2.4 cm RA Systolic Volume 4C AL 25.8 ml RA Systolic Volume 4C MOD 25.0 ml Aorta at Sinotubular Diameter 2.9 cm M-MODE LA Ao Ratio MM 1.0 AV Cusp Separation MM 1.6 cm DOPPLER AV Peak Velocity 167.0 cm/s AV Area Cont Eq vti 3.6 cm squared AV Area Cont Eq pk 3.0 cm squared MV Peak Velocity 108.0 cm/s MV Area PHT 3.9 cm squared Mitral E to A Ratio 0.5 TR Peak Velocity 191.0 cm/s TR Peak Gradient 14.6 mmHg TV Peak E Velocity 81.0 cm/s PV Peak Velocity 101.0 cm/s FINDINGS Left Ventricle Moderate left ventricular hypertrophy. Normal left ventricular size and systolic function, EF 65%.Grade I/IV diastolic dysfunction (abnormal relaxation filling pattern), normal to mildly elevated filling pressures. Right Ventricle Not visualized well. No gross abnormalities noted Right Atrium Not visualized well Left Atrium Normal left atrial size. Mitral Valve No gross abnormalities noted Aortic Valve Trace to mild aortic valve regurgitation. Thickened aortic valve. Tricuspid Valve No gross abnormalities noted Pulmonic Valve Pulmonic valve not well visualized. Pericardium Normal pericardium without effusion. Aorta Normal ascending aorta dimension. IVC Inferior vena cava not visualized. CONCLUSIONS Moderate left ventricular hypertrophy. Normal left ventricular size and systolic function, EF 65%.Grade I/IV diastolic dysfunction (abnormal relaxation filling pattern), normal to mildly elevated filling pressures. Trace to mild aortic valve regurgitation. Thickened aortic valve. There is no pericardial effusion. There are no intracardiac masses. Compared to the study from 08/10/2023, there may not be a significant change Dr Blanquita Lopez MD FACC (Electronically Signed) Final Date: 19 March 2024 21:38 S
[2024-03-19] MEDS: budesonide 0.5 mg/2 mL Neb INHALATION ×2 (09:12→20:42)
[2024-03-19] MEDS: hydroxychloroquine 200 mg Tablet PO ×2 (09:20→17:25)
[2024-03-19] MEDS: isosorbide mononitrate ER 30 mg Tablet 60 MG PO (09:21)
[2024-03-19] MEDS: FUROsemide 40 mg Tablet PO (09:21)
[2024-03-19] MEDS: metoprolol tartrate 50 mg Tablet 100 MG PO ×2 (09:21→17:23)
[2024-03-19] MEDS: levoFLOXacin 750 mg Tablet PO (09:21)
[2024-03-19] MEDS: valACYclovir 1,000 mg Tablet 1000 MG PO ×2 (09:21→17:22)
[2024-03-19] MEDS: escitalopram 10 mg Tablet PO (09:21)
[2024-03-19] MEDS: pantoprazole DR 40 mg Tablet PO (09:22)
[2024-03-19] MEDS: nystatin 100,000 unit/mL UDC 5 mL 500000 UNIT PO ×4 (09:22→20:58)
[2024-03-19] MEDS: amlodipine 10 mg Tablet PO (09:22)
[2024-03-19] MEDS: heparin 5,000 unit/mL INJ 1 mL 5000 UNIT SUBCUT ×2 (11:00→20:58)
[2024-03-19 13:00] LABS: Basophils % 0.1 %; Hematocrit 38.3 % (36-47); Lymphocytes # 1.2 10^3/uL (0.8-4.8); Lymphocytes % 12.8 %; Mean Corpuscular HGB Conc 31.1 g/dL (30-55); Mean Corpuscular Hemoglobin 24.7 pg (27-33); Mean Corpuscular Volume 79.5 fl (85-98); Mean Platelet Volume 10.4 fL (7.4-10.4); Monocytes # 0.8 10^3/uL (0.2-0.9); Neutrophils # 6.97 10^3/uL (1.8-7.7); Nucleated Red Blood Cells % 0.2 %; Platelet Count 245 10^3/cmm (157-399); Red Blood Count 4.82 10^6/uL (3.85-5.65); Red Cell Distribution Width 19.5 % (12.1-15.1); White Blood Count 9.16 10^3/uL (3.29-11.43)
--- NOTE | 2024-03-19 13:00 | P.PN_ITS ---
Subjective 2 Subjective: Seen today. Patient seems to be confused. Currently undergoing echocardiogram. Bubble study negative, no thrombus seen on echo. MRI brain does show There are acute infarcts bilaterally in the superior frontal lobes and in the bilateral temporal occipital regions. Minimal petechial hemorrhage is seen in the left frontal infarct and also in the left temporal occipital region infarct. No significant mass effect present. Consider a cardioembolic source given multiplicity and bilaterality. Vitals/I&O/Wt Last Vital Signs Temp 98.3 F 03/19/24 08:00 Pulse 84 03/19/24 09:13 Resp 18 03/19/24 09:13 BP 159/65 03/19/24 08:00 Pulse Ox 92 03/19/24 09:13 O2 Del Method Nasal Cannula 03/19/24 09:13 O2 Flow Rate 2 03/19/24 09:13 FiO2 35 03/15/24 07:43 03/18/24 03/19/24 03/19/24 22:59 06:59 14:59 Intake Total 120 / 720 120 / 840 240 / 240 Balance 120 / 720 120 / 840 240 / 240 Weight last 48 hrs Weight 74.48 kg Weight 75.206 kg Physical Exam 2 Narrative: General: more alert, sitting in bed, answers some questions, but still lethargic HEENT: PERRLA, pupils bilaterally equal and reactive, pallors not present Chest: Lungs mainly clear to auscultation bilaterally no crackles appreciated at this time however difficult to auscultate as patient not very cooperative with physical exam. CVS: S1-S2 regular, no murmurs, no tachycardia, no gallops, no rubs Abdomen: Soft, nontender, no organomegaly, bowel sounds present Neuro: No focal deficits, following commands Data 03/19/24 12:42 03/18/24 06:12 Micro: Microbiology 03/13/24 18:45 E. coli Shiga-like Toxin (PCR) - Final Stool Salmonella/Shigella Culture - Final Campylobacter (PCR) - Final Ova and Parasite Concentrate Exam - Final A&P Assessment and plan (1) COVID-19: 73 F admitted with lethargy, AMS , being found on the floor RVP + COVID 19 Ct chest with atelactasis, no consolidation remdisivir to continue Dexamethasone 6mg ivp q24h (2) Congestive heart failure: crackles one xam B/L, developing LE edema D/c IVF lasix 20mg ivp q24h monitor renal function closely Qualifiers: Heart failure type: diastolic Heart failure chronicity: chronic Q ualified Code(s): I50.32 - Chronic diastolic (congestive) heart failure (3) Acute kidney injury: likely related to rhabdomyolysis holding off on further fluids for now given hypervolemia cr improving currently (4) Rhabdomyolysis: (5) Altered mental status: likely acute encephaopathy related to her acute viral illness (6) COPD (chronic obstructive pulmonary disease): duoneb q6h and budesonide inhalation systemic steroids as above Qualifiers: COPD type: emphysema Emphysema type: centrilobular Qualified Code(s): J43.2 - Centrilobular emphysema Plan elevated D dimer , negative LE duplex, d/c heparin drip, change to ppx dose March 15, 2024 Patient appears to be clinically better today. She is more awake and alert. Able to have a simple conversation though confused about her whereabouts. Overall mental status appears to be improving metabolic encephalopathy. Continue remdesivir, IV steroids. Oxygen requirement is stable at 2 L/min. Worsening transaminitis, suspect this to be related to acute viral infection. Check sputum culture and Gram stain. Patient is currently expectorating at the time of this assessment. Continue diuresis with Lasix 20 mg IV daily. Continue scheduled nebulization. KIRT improving with creatinine now normalized at 0.8. Will start amlodipine 5 mg daily for blood pressure management. Continue to hold off on losartan and Aldactone for now given recent KIRT. Mar 16, 2024: More lethargic again today however starting to wake up towards the evening. Was able to eat lunch, noted to have difficulty eating carrots, changed to dysphagia diet. Son reports that patient has been acting confused and disoriented for the past few weeks. He has noticed her to have defecated in the home without caring to make it to the bathroom, she has stepped out of the shower without realizing that she is naked. Per son, she is unaware of a lot of her medications and sometimes just pos a pill as it is time for her medication . She has had issues with polypharmacy in the past. It appears she had a similar episode of encephalopathy last year in the setting of an acute illness but then recovered back to baseline. Possible that patient may have some underlying dementia contributing. For now holding all opiates and lyrica owing to lethargy and poor mentation. Continue Remdisivir, abx. No noted diarrhea currently. March 17, 2024 Patient is more alert today. Her mentation appears to wax and wane during course of the day. She is completing day 5 of remdesivir today. Patient has pulled out 3 IV lines due to disorientation. Will attempt to change most of her medications to oral. Blood pressure is better controlled after increasing Norvasc to 10 mg daily. Suspect that patient has underlying dementia which has been worsening over the past several weeks, likely made worse by acute viral infection. Continue to hold all opiates and other sedating medications while in the hospital. Awaiting appropriate disposition planning. In her current state patient is unsafe to live alone at home. March 18, 2024 Patient was alert, able to answer some orientation questions correctly. However still pretty lethargic. Very slow in conversation. Noted to have cold sore over the lower lip today. Start Valtrex 1 g p.o. twice daily for the same. Patient continues to be pretty encephalopathic even though other parameters are improving. He has completed a 5-day course on remdesivir and antibiotics. Currently on levofloxacin 750 mg daily, which may be discontinued at discharge. Oxygen is at 2 L/min. Patient is on Lasix 40 mg p.o. daily. Her chest is currently clear to auscultation. Her blood pressure is better controlled today between 130-150 systolic. Increase Imdur to 60mg daily if remains elevated. Over the previous days blood pressure has been noted to be ranging between 1 70- 1 90 systolic. Concerned that persistent encephalopathy may be related to PRES, check MRI brain. D/c tramadol. Check ammonia level, LFTS are improving. Ct abdomen on admission with possible colitis, received abx for the same, clinically no abdominal pain or tenderness currently, diarrhea is resolved. Awaiting safe disposition planning. Patient is not safe to return home to living alone at this time. 03/19/2024 - Check CPK, chest x-ray today. ? Tenderness normalized. ? Labs are pending today. ? Patient appears to be euvolemic ? Official echo report pending. ? Remdesivir completed. Continue dexamethasone. ? MRI brain does show stroke. Consult neurology for further recommendations. -She may require care home going forward. PDMP PDMP Reviewed: Not Reviewed Attestations 2 Medical Necessity Statement*: continued admission for manage,ent of acute necephalopathy, covid 19 , copd exacerbation, iv diuretics Diagnoses COVID-19 U07.1 Chronic diastolic congestive heart failure I50.32 Heart failure type: diastolic Heart failure chronicity: chronic Acute kidney injury N17.9 Rhabdomyolysis M62.82 Altered mental status R41.82 Centrilobular emphysema J43.2 COPD type: emphysema Emphysema type: centrilobular
--- NOTE | 2024-03-19 13:02 | PM.CONSULT ---
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 Patient admitted with acute renal injury as well as altered mental status and COVID-19 infection. Patient mental status is not improving head MRI was obtained on 03/18/2024 and revealed findings suggestive of embolic hemorrhagic strokes. MRI 03/18/2024 IMPRESSION: There are acute infarcts bilaterally in the superior frontal lobes and in the bilateral temporal occipital regions. Minimal petechial hemorrhage is seen in the left frontal infarct and also in the left temporal occipital region infarct. No significant mass effect present. Consider a cardioembolic source given multiplicity and bilaterality. As a result neurology consult was obtained. Drug allergies: Flagyl which resulted in sores on her legs Current medications: Bumetanide 1 mg tablets 2 p.o. daily Flexeril 10 mg p.o. twice daily as needed for muscle spasm Diclofenac sodium 75 mg p.o. twice daily Lexapro 10 mg p.o. daily Hydrocodone/acetaminophen 10/325 mg tablet 1 p.o. daily Plaquenil 200 mg p.o. twice daily Ibuprofen 800 mg p.o. every 8 hours as needed pain Isosorbide mononitrate 30 mg p.o. daily Lisinopril 40 mg p.o. daily Metoprolol 100 mg p.o. twice daily Sublingual nitroglycerin 0.4 mg as needed Zofran 4 mg as needed Protonic 40 mg p.o. daily Prednisone 20 mg tablets to use as directed Lyrica 150 mg p.o. twice daily Ropinirole 2 mg p.o. nightly Spironolactone 25 mg p.o. daily Sulfasalazine 1000 mg p.o. twice daily Trazodone 150 mg p.o. nightly as needed Past medical history: Obstructive sleep apnea Metabolic acidosis with respiratory acidosis Rhabdomyolysis Acute kidney injury Tobacco dependence with current use Progressive pulmonary hypertension Aortic valve disease Hemorrhoids Mixed stress and urge incontinence Lumbar radiculopathy Cervical disc disease Restless leg syndrome History of cancer of the vulva Seronegative rheumatoid arthritis of both hands Lumbar stenosis with neurogenic claudication Degenerative disc disease of the spine Chronic neck and back pain Chronic obstructive pulmonary disease Atherosclerosis of the coronary arteries Habits: Nicotine dependence Family history: Unable to obtain from patient Review of Systems General: Reports: 10 or more systems reviewed and unremarkable except in HPI and below and ROS unobtainable due to mental status Medications/Allergies Home Medications ?Medication ?Instructions ?Recorded ?Confirmed ?Last Taken ?Type bumetanide 1 mg tablet 2 mg (2 x 1 mg) PO DAILY #180 tabs 09/23/21 03/14/24 03/06/24 Rx acetaminophen 500 mg tablet 500 mg PO Q6H PRN pain #90 tabs 03/10/22 03/14/24 Unknown Rx (Tylenol Extra Strength) lisinopril 40 mg tablet 40 mg PO DAILY #90 tabs 06/25/22 03/14/24 03/06/24 Rx cyclobenzaprine 10 mg tablet 10 mg PO BID PRN MUSCLE SPASMS 11/02/22 03/14/24 03/06/24 History hydrocodone 10 mg-acetaminophen 1 tab PO DAILY 11/02/22 03/14/24 03/06/24 History 325 mg tablet pregabalin 150 mg capsule 150 mg PO 2XD 11/02/22 03/14/24 03/06/24 History ropinirole 2 mg tablet 2 mg PO BEDTIME 11/02/22 03/14/24 03/05/24 History budesonide 160 mcg-glycopyr 9 2 inh inhalation BID #10.7 grams 02/15/23 03/14/24 Unknown Rx mcg-formot 4.8 mcg/actuation HFA inhaler (Breztri Aerosphere) diclofenac sodium 75 mg 75 mg PO BID 07/25/23 03/14/24 03/06/24 History tablet,delayed release ibuprofen 800 mg tablet 800 mg PO Q8H PRN Pain 07/25/23 03/14/24 Unknown History trazodone 150 mg tablet 150 mg PO DAILY PRN Insomnia 07/25/23 03/14/24 03/06/24 History nitroglycerin 0.4 mg sublingual 0.4 mg sublingual Q5M PRN chest 09/06/23 03/14/24 03/06/24 Rx tablet pain #30 tabs isosorbide mononitrate 30 mg 30 mg PO DAILY #30 tabs 10/20/23 03/14/24 03/06/24 Rx tablet,extended release 24 hr hydroxychloroquine 200 mg tablet 200 mg PO BID #180 tabs 11/17/23 03/14/24 03/06/24 Rx (Plaquenil) prednisone 20 mg tablet See Rx Instructions PO .COMPLEX 11/17/23 03/14/24 Unknown Rx PRN joint pain flare #30 tabs sulfasalazine 500 mg tablet 1,000 mg (2 x 500 mg) PO BID #360 11/17/23 03/14/24 03/06/24 Rx tabs metoprolol tartrate 100 mg tablet 100 mg PO BID #180 tabs 01/23/24 03/14/24 03/06/24 Rx metoclopramide HCl 10 mg tablet 10 mg PO DAILY 03/06/24 03/14/24 Unknown History ondansetron HCl 4 mg tablet 4 mg PO PRN PRN Nausea And Vomiting 03/06/24 03/14/24 Unknown History pantoprazole 40 mg tablet,delayed 40 mg PO DAILY 03/06/24 03/14/24 Unknown History release escitalopram oxalate 10 mg tablet 10 mg PO DAILY 03/14/24 03/14/24 Unknown History spironolactone 25 mg tablet 25 mg PO QAM 03/14/24 03/14/24 Unknown History Allergies Allergy/AdvReac Type Severity Reaction Status Date / Time metronidazole (From Voicendo) Allergy Intermediate Sores on Verified 03/06/24 11:15 legs Current Medications Generic Name Dose Route Start Last Admin Trade Name Freq PRN Reason Stop Dose Admin Acetaminophen 500 mg 03/13/24 21:15 03/19/24 09:20 Acetaminophen 500 Mg Tablet PO 500 mg Q4H PRN Administration fever Albuterol/Ipratropium 3 ml 03/15/24 08:00 03/19/24 09:12 Ipratropium-Albuterol 3 Ml Neb INHALATION 3 ml Q6H.RESP PIERCE Administration Amlodipine Besylate 10 mg 03/17/24 09:00 03/19/24 09:22 Amlodipine 10 Mg Tablet PO 10 mg DAILY PIERCE Administration Budesonide 0.5 mg 03/14/24 20:00 03/19/24 09:12 Budesonide 0.5 Mg/2 Ml Neb INHALATION 0.5 mg BID.RESPIRATORY PIERCE Administration Dexamethasone 6 mg 03/16/24 17:00 03/18/24 17:18 Dexamethasone 4 Mg Tablet PO 6 mg Q24H PIERCE Administration Escitalopram Oxalate 10 mg 03/19/24 09:00 03/19/24 09:21 Escitalopram 10 Mg Tablet PO 10 mg DAILY PIERCE Administration Furosemide 40 mg 03/17/24 08:00 03/19/24 09:21 Furosemide 40 Mg Tablet PO 40 mg DAILY@0800 PIERCE Administration Heparin Sodium (Porcine) 5,000 unit 03/14/24 22:45 03/19/24 11:00 Heparin 5,000 Unit/Ml Inj 1 Ml SUBCUT 5,000 unit Q12H PIERCE Administration Hydroxychloroquine Sulfate 200 mg 03/18/24 18:00 03/19/24 09:20 Hydroxychloroquine 200 Mg Tablet PO 200 mg BID PIERCE Administration Isosorbide Mononitrate 60 mg 03/19/24 09:00 03/19/24 09:21 Isosorbide Mononitrate Er 30 Mg Tablet PO 60 mg DAILY PIERCE Administration Levofloxacin 750 mg 03/18/24 09:00 03/19/24 09:21 Levofloxacin 750 Mg Tablet PO 750 mg DAILY PIERCE Administration Protocol Metoprolol Tartrate 100 mg 03/14/24 09:00 03/19/24 09:21 Metoprolol Tartrate 50 Mg Tablet PO 100 mg BID PIERCE Administration Nystatin 500,000 unit 03/17/24 17:00 03/19/24 09:22 Nystatin 100,000 Unit/Ml Udc 5 Ml PO 500,000 unit QID PIERCE Administration Pantoprazole Sodium 40 mg 03/18/24 09:00 03/19/24 09:[address] 40 Mg Tablet PO 40 mg DAILY PIERCE Administration Valacyclovir HCl 1,000 mg 03/18/24 18:00 03/19/24 09:21 Valacyclovir 1,000 Mg Tablet PO 1,000 mg BID PIERCE Administration PFSH Acute PFSH: Medical History Aortic valve disease Sacroiliac (ligament) sprain Bony pelvic pain Mixed stress and urge incontinence RLS (restless legs syndrome) History of cancer of vulva s/p excision and radiation therapy Lumbar spondylosis History of PFTs 05/2020: normal spirometry and lung volumes; isolated gas transfer suggestive of pulmonary vascular disease Bright red blood per rectum Altered mental state Arm and leg movements, uncontrollable Hypertension Anxiety about health GERD (gastroesophageal reflux disease) Osteoarthritis of both hands Atherosclerosis of coronary artery Seronegative rheumatoid arthritis of both hands Lumbar stenosis with neurogenic claudication Congestive heart failure Diastolic High risk medication use COPD (chronic obstructive pulmonary disease) Sleep apnea She chose not to treat with CPAP RLS (restless legs syndrome) DDD (degenerative disc disease) Chronic pain pain clinic in [facility] Tobacco abuse 2 ppd all of her adult life, 45 + years. Aortic regurgitation mild to moderate Surgical History History of cardiac catheterization 07/2020: moderate left main, stenosis, FFR 0.94, no hemodynamically significant History of colonoscopy 07/2021 History of appendectomy History of hernia repair History of colon surgery H/O: hysterectomy Total Hysterectomy in 1969 History of lung surgery H/O hemorrhoidectomy H/O cataract extraction S/P carpal tunnel release History of bilateral carpal tunnel release Family History Mother Diabetes Heart disease Hypertension Hyperchloremia Stroke Father Alcohol abuse Sister Dementia Stroke Social History Smoking and tobacco/nicotine status: current every day tobacco/nicotine user cigarettes Packs smoked per day: 2 Years cigarettes smoked: 60 Quit status (tobacco/nicotine): has tried quititng Alcohol intake: former Substance/Drug Use: never Caregiver/support person: Yes Lives independently: Yes Household members: none Marital status: Highest education level completed: GED or Equivalent service: No Current occupational status: retired and disabled Pets and animals: No Do you think of yourself as: Straight/Heterosexual Current gender identity: Female Brenda/Scientology: Mandaen Vitals/I&O/Wt Last Vital Signs Temp 98.3 F 03/19/24 08:00 Pulse 84 03/19/24 09:13 Resp 18 03/19/24 09:13 BP 159/65 03/19/24 08:00 Pulse Ox 92 03/19/24 09:13 O2 Del Method Nasal Cannula 03/19/24 09:13 O2 Flow Rate 2 03/19/24 09:13 FiO2 35 03/15/24 07:43 03/18/24 03/19/24 03/19/24 22:59 06:59 14:59 Intake Total 120 / 720 120 / 840 240 / 240 Balance 120 / 720 120 / 840 240 / 240 Weight last 48 hrs Weight 164 lb 3.2 oz Weight 165 lb 12.8 oz Physical Exam Narrative: Patient is currently alert she was sitting in the bedside chair eating lunch. She had decreased verbal output but did answer when asked but answers slowly. Patient moves all extremities to command slowly. I did not appreciate any obvious facial weakness or focal weakness in her upper or lower extremities. Sensory examination intact to touch. Throat clear. Lungs clear. Heart regular rhythm and rate extremities were negative for cyanosis. Gait was not tested as patient was sitting in the bedside chair with table in front of her and eating lunch. Data 03/19/24 12:42 03/18/24 06:12 Micro: Microbiology 03/13/24 18:45 E. coli Shiga-like Toxin (PCR) - Final Stool Salmonella/Shigella Culture - Final Campylobacter (PCR) - Final Ova and Parasite Concentrate Exam - Final A&P Assessment and plan (1) Embolic stroke: Impression: 1. 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 COVID-19 infection 3. Aortic valve disease and coronary artery disease 4. Recommend starting cholesterol-lowering agent per [facility] stroke protocol 5. Plan: 1. Recommend cardiac evaluation to assess for cardiac causes for embolic stroke and to determine if patient requires anticoagulation 2. Discontinue nonsteroidal anti-inflammatory medications diclofenac, and ibuprofen since nonsteroidal anti-inflammatory medication other than aspirin have been reported increase risk for heart disease and stroke 3. Recommend patient be placed on cardiac telemetry monitoring to assess for arrhythmia 4. Recommend obtaining 2D echocardiogram with bubble study if possible to assess for embolic source for strokes 5. Neurochecks and vital signs per [facility] stroke protocol 6. Physical therapy, Occupational Therapy and speech therapy consults 7. Stroke education information for patient and patient's family PDMP PDMP Reviewed: Not Reviewed Consult Attestations Medical Necessity Statement: The patient was evaluated by neurology for embolic hemorrhagic strokes on head MRI 03/18/2024 Coding Level of Care Code 67469 Diagnoses Embolic stroke I63.9
[2024-03-19 13:19] LABS: Alanine Aminotransferase 69 U/L (0-33); Albumin Level 3.4 g/dL (3.5-5.2); Alkaline Phosphatase 86 U/L (35-105); Blood Urea Nitrogen 38 mg/dL (8-23); Calcium 9.1 mg/dL (8.5-10.5); Carbon Dioxide 21 mmol/L (22-29); Chloride 96 mmol/L (98-107); Creatinine Clr Calc Pharmacy 45.9281; Globulin 3.4 g/dL (1.3-4.6); Glucose 235 mg/dL (65-115); Osmolality Calculated 299 mOsm/kg (285-295); Sodium 136 mmol/L (136-145); Total Bilirubin 0.5 mg/dL (0.15-1.2); Total Protein 6.8 g/dL (6.6-8.7)
[2024-03-19 13:20] LABS: Aspartate Amino Transferase 65 U/L (0-32)
[2024-03-19] MEDS: sodium chloride 0.9% 250 ML IV (14:36)
--- NOTE | 2024-03-19 15:18 | PC.SOCIAL ---
IMM Updated Updated pt on IMM. No questions voiced. Provided pt a copy. Initialed, dated, & timed copy in chart.
[2024-03-19] MEDS: dexamethasone 4 mg Tablet 6 MG PO (17:23)
[2024-03-19] MEDS: atorvastatin 40 mg Tablet 80 MG PO (22:46)
[2024-03-20] VITALS (9 sets, daily range): BP systolic 78–120; BP diastolic 41–70; PULSE 56–82; RESP 16–20; TEMP 36.3–36.6; O2SAT 90–95
[2024-03-20] MEDS: ipratropium-albuterol 3 mL Neb INHALATION ×3 (01:12→15:57)
[2024-03-20 05:29] LABS: Basophils % 0.1 %; Hematocrit 35.5 % (36-47); Lymphocytes # 0.8 10^3/uL (0.8-4.8); Lymphocytes % 10.2 %; Mean Corpuscular HGB Conc 30.1 g/dL (30-55); Mean Corpuscular Hemoglobin 24.3 pg (27-33); Mean Corpuscular Volume 80.7 fl (85-98); Mean Platelet Volume 11.4 fL (7.4-10.4); Monocytes # 0.4 10^3/uL (0.2-0.9); Monocytes % 5.4 %; Neutrophils # 6.66 10^3/uL (1.8-7.7); Nucleated Red Blood Cells % 0 %; Platelet Count 234 10^3/cmm (157-399); Red Cell Distribution Width 19.3 % (12.1-15.1); White Blood Count 8.13 10^3/uL (3.29-11.43)
[2024-03-20 05:48] LABS: Anion Gap 18.6 (5-19); Blood Urea Nitrogen 41 mg/dL (8-23); Carbon Dioxide 26 mmol/L (22-29); Chloride 99 mmol/L (98-107); Creatinine Clr Calc Pharmacy 45.5521; Glucose 162 mg/dL (65-115); Magnesium 1.8 mg/dL (1.7-2.3); Osmolality Calculated 304 mOsm/kg (285-295); Potassium 3.6 mmol/L (3.5-5.1); Sodium 140 mmol/L (136-145)
[2024-03-20] MEDS: acetaminophen 500 mg Tablet PO ×2 (06:59→11:11)
[2024-03-20] MEDS: hydroxychloroquine 200 mg Tablet PO ×2 (07:36→17:50)
[2024-03-20] MEDS: escitalopram 10 mg Tablet PO (07:37)
[2024-03-20] MEDS: amlodipine 10 mg Tablet PO (07:37)
[2024-03-20] MEDS: valACYclovir 1,000 mg Tablet 1000 MG PO ×2 (07:37→18:20)
[2024-03-20] MEDS: pantoprazole DR 40 mg Tablet PO (07:37)
[2024-03-20] MEDS: isosorbide mononitrate ER 30 mg Tablet 60 MG PO (07:37)
[2024-03-20] MEDS: aspirin 81 mg EC Tablet PO (07:37)
[2024-03-20] MEDS: levoFLOXacin 750 mg Tablet PO (07:38)
[2024-03-20] MEDS: nystatin 100,000 unit/mL UDC 5 mL 500000 UNIT PO ×4 (07:38→20:13)
[2024-03-20] MEDS: metoprolol tartrate 50 mg Tablet 100 MG PO ×2 (07:38→17:50)
[2024-03-20] MEDS: heparin 5,000 unit/mL INJ 1 mL 5000 UNIT SUBCUT ×2 (10:28→20:13)
--- NOTE | 2024-03-20 11:08 | P.PN_ITS ---
Subjective 2 Subjective: Seen this morning. Patient alert oriented x 2. Somewhat confused. This may be her new baseline. Vitals/I&O/Wt Last Vital Signs Temp 97.9 F 03/20/24 10:54 Pulse 71 03/20/24 10:54 Resp 19 H 03/20/24 10:54 BP 78/42 03/20/24 10:54 Pulse Ox 94 03/20/24 10:54 O2 Del Method Nasal Cannula 03/20/24 10:54 O2 Flow Rate 4 03/20/24 08:00 FiO2 35 03/15/24 07:43 03/19/24 03/20/24 03/20/24 22:59 06:59 14:59 Intake Total 550 / 910 240 / 1150 480 / 480 Balance 550 / 910 240 / 1150 480 / 480 Weight last 48 hrs Weight 73.255 kg Weight 74.48 kg Physical Exam 2 Narrative: General: More alert and awake and sitting up in chair eating breakfast this morning. HEENT: PERRLA, pupils bilaterally equal and reactive, pallors not present Chest: Lungs mainly clear to auscultation bilaterally no crackles appreciated at this time CVS: S1-S2 regular, no murmurs, no tachycardia, no gallops, no rubs Abdomen: Soft, nontender, no organomegaly, bowel sounds present Neuro: No focal deficits, following commands Data 03/20/24 05:07 03/20/24 05:07 Micro: Microbiology 03/15/24 14:10 Gram Stain - Final Sputum - Expectorated Sputum Sputum Culture - Final Jazmine albicans 03/13/24 18:45 E. coli Shiga-like Toxin (PCR) - Final Stool Salmonella/Shigella Culture - Final Campylobacter (PCR) - Final Ova and Parasite Concentrate Exam - Final A&P Assessment and plan (1) COVID-19: 73 F admitted with lethargy, AMS , being found on the floor RVP + COVID 19 Ct chest with atelactasis, no consolidation remdisivir to continue Dexamethasone 6mg ivp q24h (2) Congestive heart failure: crackles one xam B/L, developing LE edema D/c IVF lasix 20mg ivp q24h monitor renal function closely Qualifiers: Heart failure type: diastolic Heart failure chronicity: chronic Q ualified Code(s): I50.32 - Chronic diastolic (congestive) heart failure (3) Acute kidney injury: likely related to rhabdomyolysis holding off on further fluids for now given hypervolemia cr improving currently (4) Rhabdomyolysis: (5) Altered mental status: likely acute encephaopathy related to her acute viral illness (6) COPD (chronic obstructive pulmonary disease): duoneb q6h and budesonide inhalation systemic steroids as above Qualifiers: COPD type: emphysema Emphysema type: centrilobular Qualified Code(s): J43.2 - Centrilobular emphysema Plan elevated D dimer , negative LE duplex, d/c heparin drip, change to ppx dose March 15, 2024 Patient appears to be clinically better today. She is more awake and alert. Able to have a simple conversation though confused about her whereabouts. Overall mental status appears to be improving metabolic encephalopathy. Continue remdesivir, IV steroids. Oxygen requirement is stable at 2 L/min. Worsening transaminitis, suspect this to be related to acute viral infection. Check sputum culture and Gram stain. Patient is currently expectorating at the time of this assessment. Continue diuresis with Lasix 20 mg IV daily. Continue scheduled nebulization. KIRT improving with creatinine now normalized at 0.8. Will start amlodipine 5 mg daily for blood pressure management. Continue to hold off on losartan and Aldactone for now given recent KIRT. Mar 16, 2024: More lethargic again today however starting to wake up towards the evening. Was able to eat lunch, noted to have difficulty eating carrots, changed to dysphagia diet. Son reports that patient has been acting confused and disoriented for the past few weeks. He has noticed her to have defecated in the home without caring to make it to the bathroom, she has stepped out of the shower without realizing that she is naked. Per son, she is unaware of a lot of her medications and sometimes just pos a pill as it is time for her medication . She has had issues with polypharmacy in the past. It appears she had a similar episode of encephalopathy last year in the setting of an acute illness but then recovered back to baseline. Possible that patient may have some underlying dementia contributing. For now holding all opiates and lyrica owing to lethargy and poor mentation. Continue Remdisivir, abx. No noted diarrhea currently. March 17, 2024 Patient is more alert today. Her mentation appears to wax and wane during course of the day. She is completing day 5 of remdesivir today. Patient has pulled out 3 IV lines due to disorientation. Will attempt to change most of her medications to oral. Blood pressure is better controlled after increasing Norvasc to 10 mg daily. Suspect that patient has underlying dementia which has been worsening over the past several weeks, likely made worse by acute viral infection. Continue to hold all opiates and other sedating medications while in the hospital. Awaiting appropriate disposition planning. In her current state patient is unsafe to live alone at home. March 18, 2024 Patient was alert, able to answer some orientation questions correctly. However still pretty lethargic. Very slow in conversation. Noted to have cold sore over the lower lip today. Start Valtrex 1 g p.o. twice daily for the same. Patient continues to be pretty encephalopathic even though other parameters are improving. He has completed a 5-day course on remdesivir and antibiotics. Currently on levofloxacin 750 mg daily, which may be discontinued at discharge. Oxygen is at 2 L/min. Patient is on Lasix 40 mg p.o. daily. Her chest is currently clear to auscultation. Her blood pressure is better controlled today between 130-150 systolic. Increase Imdur to 60mg daily if remains elevated. Over the previous days blood pressure has been noted to be ranging between 1 70- 1 90 systolic. Concerned that persistent encephalopathy may be related to PRES, check MRI brain. D/c tramadol. Check ammonia level, LFTS are improving. Ct abdomen on admission with possible colitis, received abx for the same, clinically no abdominal pain or tenderness currently, diarrhea is resolved. Awaiting safe disposition planning. Patient is not safe to return home to living alone at this time. 03/19/2024 - Check CPK, chest x-ray today. ? Tenderness normalized. ? Labs are pending today. ? Patient appears to be euvolemic ? Official echo report pending. ? Remdesivir completed. Continue dexamethasone. ? MRI brain does show stroke. Consult neurology for further recommendations. -She may require long term going forward. 03/20/2024 Creatinine kinase 128. Chest x-ray pending Patient appears to be euvolemic this morning. Echo does not show patent foramen ovale or thrombus. Patient will need event monitor at discharge to rule out underlying A-fib. ? MRI does show stroke with possible cardioembolic etiology. Possibility of underlying A-fib?. There is a small area of petechial hemorrhage. Will discuss with neurology and cardiology regarding anticoagulation going forward. ? Patient awaiting placement in long term at this time Speech swallow evaluation, PT OT pending. Patient awaiting safe discharge planning. Blood pressure has been on the softer side. I have stopped her Lasix. Will place patient on low-dose aspirin and atorvastatin. PDMP PDMP Reviewed: Not Reviewed Attestations 2 Medical Necessity Statement*: If discharge planning. Diagnoses COVID-19 U07.1 Chronic diastolic congestive heart failure I50.32 Heart failure type: diastolic Heart failure chronicity: chronic Acute kidney injury N17.9 Rhabdomyolysis M62.82 Altered mental status R41.82 Centrilobular emphysema J43.2 COPD type: emphysema Emphysema type: centrilobular
[2024-03-20] MEDS: sodium chloride 0.9% 500 ML 999 ML IV (11:13)
--- NOTE | 2024-03-20 12:19 | MRR_ITS ---
PROCEDURE INFORMATION: Exam: MRA Head Without Contrast; Arteriography Exam date and time: 03/20/2024 4:44 PM Age: 73 years old Clinical indication: Weakness; Stroke, post covid encephalopathy TECHNIQUE: Imaging protocol: Magnetic resonance angiography head without contrast. Zaex-[id number]-[id number] (TOF) technique was utilized for this exam. Exam focused on the arteries. COMPARISON: MR head wo con* [id number] 03/18/2024 5:51 PM FINDINGS: ANTERIOR CIRCULATION: Right internal carotid artery: Intracranial segment is patent with no significant stenosis. No aneurysm. Undulating signal likely service representative of non stenotic calcified and noncalcified atherosclerotic disease. Right middle cerebral artery: No occlusion or significant stenosis. No aneurysm. Right anterior cerebral artery: No occlusion or significant stenosis. No aneurysm. Left internal carotid artery: Intracranial segment is patent with no significant stenosis. No aneurysm. Undulating signal likely service representative of non stenotic calcified and noncalcified atherosclerotic disease. Left middle cerebral artery: No occlusion or significant stenosis. No aneurysm. Left anterior cerebral artery: No occlusion or significant stenosis. No aneurysm. POSTERIOR CIRCULATION: Right vertebral artery: No occlusion or significant stenosis. No aneurysm. Left vertebral artery: No occlusion or significant stenosis. No aneurysm. Basilar artery: No occlusion or significant stenosis. No aneurysm. Right posterior cerebral artery: No occlusion or significant stenosis. No aneurysm. origin of the right posterior cerebral artery. Left posterior cerebral artery: No occlusion or significant stenosis. No aneurysm. MR/MR angio head wo con [id number] IMPRESSION: No stenosis or occlusion.
--- NOTE | 2024-03-20 12:19 | MRR_ITS ---
PROCEDURE INFORMATION: Exam: MRA Neck Without Contrast Exam date and time: 03/20/2024 4:57 PM Age: 73 years old Clinical indication: Weakness; Post covid encephalopathy. Stroke TECHNIQUE: Imaging protocol: Magnetic resonance angiography of the neck without contrast. Nvcx-wg-vmpfrg (TOF) technique was utilized for this exam. COMPARISON: CT neck w con* [id number] 04/05/2023 8:23 AM FINDINGS: Right common carotid artery: Mild atherosclerotic narrowing of the origin, no further stenosis. No dissection or occlusion. Right internal carotid artery: No stenosis of the extracranial segment. No dissection or occlusion. Right external carotid artery: No stenosis. No dissection or occlusion of the origin. Right vertebral artery: Mild atherosclerotic narrowing of the origin, no further stenosis. No dissection or occlusion. Left common carotid artery: Mild atherosclerotic narrowing of the origin, no further stenosis. No dissection or occlusion. Left internal carotid artery: No stenosis of the extracranial segment. No dissection or occlusion. Left external carotid artery: No stenosis. No dissection or occlusion of the origin. Left vertebral artery: No stenosis. No dissection or occlusion. MR/MR angio neck con [id number] IMPRESSION: No significant stenosis or occlusion. REFERENCES: NASCET CRITERIA. The degree of stenosis in the cervical segment of the internal carotid artery is based on NASCET criteria. Normal is no stenosis. Mild is less than 50% stenosis. Moderate is 50-69% stenosis. Severe is 70% to 99% stenosis. Total occlusion is no detectable patent lumen.
[2024-03-20] MEDS: sodium chloride 0.9% 500 ML IV (15:22)
[2024-03-20 16:22] LABS: Lactic Sepsis W/Reflex 2.8 mmol/L (0.5-2.2)
[2024-03-20 17:50] LABS: Reflex Lactate Order REFLEX LACTIC ORDERD
[2024-03-20] MEDS: dexamethasone 4 mg Tablet 6 MG PO (17:50)
[2024-03-20 18:53] LABS: Lactic Acid level (Lactate) 2.3 mmol/L (0.5-2.2)
[2024-03-20] MEDS: atorvastatin 40 mg Tablet 80 MG PO (20:13)
[2024-03-20] MEDS: sodium chloride 0.9% 1,000 ML 125 ML IV (20:14)
[2024-03-21] VITALS (8 sets, daily range): BP systolic 114–148; BP diastolic 63–68; PULSE 60–88; RESP 16–22; TEMP 36.4–37; O2SAT 90–94
[2024-03-21] MEDS: ipratropium-albuterol 3 mL Neb INHALATION ×3 (01:24→13:30)
[2024-03-21] MEDS: sodium chloride 0.9% 1,000 ML 125 ML IV (04:03)
[2024-03-21 05:24] LABS: Basophils % 0.1 %; Hematocrit 31.5 % (36-47); Lymphocytes # 0.9 10^3/uL (0.8-4.8); Lymphocytes % 9.7 %; Mean Corpuscular HGB Conc 30.8 g/dL (30-55); Mean Corpuscular Hemoglobin 24.5 pg (27-33); Mean Corpuscular Volume 79.5 fl (85-98); Mean Platelet Volume 11.1 fL (7.4-10.4); Monocytes # 0.4 10^3/uL (0.2-0.9); Monocytes % 4.6 %; Neutrophils # 7.68 10^3/uL (1.8-7.7); Nucleated Red Blood Cells % 0 %; Platelet Count 214 10^3/cmm (157-399); Red Blood Count 3.96 10^6/uL (3.85-5.65); Red Cell Distribution Width 19.3 % (12.1-15.1); White Blood Count 9.15 10^3/uL (3.29-11.43)
[2024-03-21 06:00] LABS: Anion Gap 14.6 (5-19); Blood Urea Nitrogen 46 mg/dL (8-23); Calcium 8.4 mg/dL (8.5-10.5); Carbon Dioxide 24 mmol/L (22-29); Chloride 105 mmol/L (98-107); Creatinine Clr Calc Pharmacy 46.5266; Glucose 145 mg/dL (65-115); Magnesium 1.7 mg/dL (1.7-2.3); Osmolality Calculated 304 mOsm/kg (285-295); Potassium 3.6 mmol/L (3.5-5.1); Sodium 140 mmol/L (136-145)
--- NOTE | 2024-03-21 09:03 | PC.SOCIAL ---
IMM Updated Updated pt & family on IMM. No questions voiced. Provided pt a copy. Initialed, dated, & timed copy in chart.
[2024-03-21] MEDS: nystatin 100,000 unit/mL UDC 5 mL 500000 UNIT PO ×2 (09:09→12:06)
--- NOTE | 2024-03-21 09:09 | PC.NURSE ---
Pt has two sets of dentures in room.
[2024-03-21] MEDS: escitalopram 10 mg Tablet PO (09:10)
[2024-03-21] MEDS: aspirin 81 mg EC Tablet PO (09:10)
[2024-03-21] MEDS: amlodipine 10 mg Tablet PO (09:10)
[2024-03-21] MEDS: valACYclovir 1,000 mg Tablet 1000 MG PO (09:10)
[2024-03-21] MEDS: pantoprazole DR 40 mg Tablet PO (09:10)
[2024-03-21] MEDS: hydroxychloroquine 200 mg Tablet PO (09:10)
[2024-03-21] MEDS: metoprolol tartrate 50 mg Tablet 100 MG PO (09:10)
[2024-03-21] MEDS: budesonide 0.5 mg/2 mL Neb INHALATION (09:33)
[2024-03-21] MEDS: heparin 5,000 unit/mL INJ 1 mL 5000 UNIT SUBCUT (11:20)
--- NOTE | 2024-03-21 13:27 | XR_ITS ---
WS: [id number] XR chest 1V portable [id number] REASON FOR EXAM: hypoxia FINDINGS: Moderate tortuosity and ectasia of the thoracic aorta. Heart size within normal limits. Calcified granulomatous disease in both hemithoraces. Possibly early interstitial reticular lung opacities in the periphery of the right lower lung, equivocal. No other significant interval change compared to 03/13/2024. XR/XR chest 1V portable [id number] IMPRESSION: Potential early changes of COVID pneumonitis, equivocal. Chest otherwise unchan ged compared to 03/13/2024.
--- NOTE | 2024-03-21 13:51 | P.DS_ITS ---
Discharge Providers Date of Admission: 03/14/24 02:06 Date of Discharge: March 21, 2024 Attending Provider at Admission: Tadeo Lockwood MD Attending Provider at Discharge: Aide Beauchamp MD Primary Care Provider: Inocencia Jaime APN Diagnoses at Discharge Discharge Diagnosis (1) COVID-19: Status: Acute (2) Congestive heart failure: Status: Acute Qualifiers: Heart failure chronicity: chronic Heart failure type: diastolic Qualified Code(s): I50.32 - Chronic diastolic (congestive) heart failure Permanent problem details: Diastolic (3) Acute kidney injury: Status: Resolved (4) Rhabdomyolysis: Status: Resolved (5) Altered mental status: Status: Acute (6) COPD (chronic obstructive pulmonary disease): Status: Acute Qualifiers: COPD type: emphysema Emphysema type: centrilobular Qualified Code(s): J43.2 - Centrilobular emphysema Reason for Visit Reason for Visit: unresp/ v/ Hospital Course Hospital Course Patient with history of multiple comorbid conditions presented to the hospital with shortness of breath and altered mental status. She was diagnosed with COVID-pneumonia and was given remdesivir and dexamethasone. Also thought to be in diastolic heart failure and was diuresed with Lasix however did overdiuresis therefore fluids were given back. She also had rhabdomyolysis with elevated creatinine kinase which also improved going forward. She has a history of COPD and was given systemic steroids budesonide DuoNeb. Patient remained confused and it was thought to be her new baseline at this time. She also had cold sores on her lower lip for which valacyclovir was started. She was placed on Levaquin for possible superimposed pneumonia. MRI was ordered which showed multiple areas with stroke and small area of petechial hemorrhage. Neurology was consulted. There was no documented evidence of A-fib on telemetry. She was set up with an event monitor at discharge. We will place her on aspirin and statin at this time and hold off on dual antiplatelet secondary to small area of petechial hemorrhage to be on the safer side. Discussed this with neurology and they are in agreement. Updated patient's son as well. Called him at home and explained patient's entire situation. Patient is unable to participate physical therapy 3 hours a day therefore inpatient rehab was not considered. She will be set up for rehab at [facility] where she will get at least 1 hour physical therapy. Patient is requiring nasal cannula 4 L which is secondary to her COVID pneumonitis. This will takes weeks to resolve. She is not an active heart failure exacerbation at this time. Chest x-ray was rechecked at time of discharge. She will be sent to [facility] with oxygen. I will stop antibiotics at discharge. Physical Exam Narrative: General: More alert and awake and sitting up in chair eating breakfast this morning. HEENT: PERRLA, pupils bilaterally equal and reactive, pallors not present Chest: Lungs mainly clear to auscultation bilaterally no crackles appreciated at this time CVS: S1-S2 regular, no murmurs, no tachycardia, no gallops, no rubs Abdomen: Soft, nontender, no organomegaly, bowel sounds present Neuro: No focal deficits, following commands Discharge Data Studies Completed and Pending Completed Studies During Hospitalization Category Date Time Status CT chest abdomen pelvis [[place] [id number] Cat Scan 03/13/24 21:12 Completed ] Stat CT head wo con* [id number] Stat Cat Scan 03/13/24 18:09 Completed XR chest 1V portable [id number] Stat Exams 03/13/24 18:09 Completed OVA and Parasites, Conc and PE Routine Lab 03/13/24 18:45 Completed Salmonella / Shigella / Campy Routine Lab 03/13/24 18:45 Completed MR head wo con* [id number] Routine MRI 03/18/24 16:19 Completed MRA head [MR angio head wo con [id number]] Routine MRI 03/20/24 12:19 Completed MRA neck [MR angio neck wo con [id number]] Routine MRI 03/20/24 12:19 [place] [id number] Stat Ultrasound 03/13/24 22:42 Completed CV. echo w/w bubble cont [id number] Routine Ultrasound 03/19/24 08:49 Completed Pending at discharge Category Date Time Status XR chest 1V portable [id number] Stat Exams 03/21/24 13:27 Taken Blood Culture Stat Lab 03/20/24 15:48 Results Urine Culture Stat Lab 03/20/24 14:57 Uncollected Radiology Impressions Head CT 03/13/24 18:09 IMPRESSION: No acute intracranial abnormality. Chest/Abdomen/Pelvis CT 03/13/24 21:12 IMPRESSION: 1. No acute abnormality. 2. Extensive atherosclerosis including coronary artery calcification. IMPRESSION: 1. Findings suggestive of a mild colitis. Clinical correlation advised. 2. Bilateral adrenal adenomas. 3. Atherosclerosis. 4. Questionable gallstones versus gallbladder sludge. No signs of acute cholecystitis. COMMENTS: Consistent with the [employer]'s Incidental Findings Committee white paper (J Am Bethany Radiol 2017): For any incidental adrenal lesion greater than or equal to 1 cm but less than or equal to 4 cm classified in this report as benign, likely benign, or containing fat (including classification as an adenoma or myelolipoma), no follow-up imaging is recommended per consensus recommendations based on imaging criteria. Further lab evaluation could be pursued if warranted based on clinical findings. Venous Duplex 03/13/24 22:42 IMPRESSION: No evidence of deep vein thrombosis. Head MRI 03/18/24 16:19 IMPRESSION: There are acute infarcts bilaterally in the superior frontal lobes and in the bilateral temporal occipital regions. Minimal petechial hemorrhage is seen in the left frontal infarct and also in the left temporal occipital region infarct. No significant mass effect present. Consider a cardioembolic source given multiplicity and bilaterality. ADDENDUM: 03/18/24 190 THIS REPORT CONTAINS FINDINGS THAT MAY BE CRITICAL TO PATIENT CARE. The findings were verbally communicated via telephone conference with Dr. Lockwood at 7:00 PM [employer] [place] on 03/18/2024. The findings were acknowledged and understood. Head MRA 03/20/24 12:19 IMPRESSION: No stenosis or occlusion. Neck MRA 03/20/24 12:19 IMPRESSION: No significant stenosis or occlusion. REFERENCES: NASCET CRITERIA. The degree of stenosis in the cervical segment of the internal carotid artery is based on NASCET criteria. Normal is no stenosis. Mild is less than 50% stenosis. Moderate is 50-69% stenosis. Severe is 70% to 99% stenosis. Total occlusion is no detectable patent lumen. Laboratory Results WBC 9.15 10^3/uL (3.29-11.43) 03/21/24 04:59 RBC 3.96 10^6/uL (3.85-5.65) 03/21/24 04:59 Hgb 9.70 g/dL (11.27-16.99) L 03/21/24 04:59 Hct 31.5 % (36-47) L 03/21/24 04:59 MCV 79.5 fl (85-98) L 03/21/24 04:59 MCH 24.5 pg (27-33) L 03/21/24 04:59 MCHC 30.8 g/dL (30-55) 03/21/24 04:59 RDW 19.3 % (12.1-15.1) H 03/21/24 04:59 Plt Count 214 10^3/cmm (157-399) 03/21/24 04:59 MPV 11.1 fL (7.4-10.4) H 03/21/24 04:59 Neut % (Auto) 84.0 % 03/21/24 04:59 Lymph % (Auto) 9.7 % 03/21/24 04:59 Mchenry % (Auto) 4.6 % 03/21/24 04:59 Eos % (Auto) 0.0 % 03/21/24 04:59 Baso % (Auto) 0.1 % 03/21/24 04:59 Neut # (Auto) 7.68 10^3/uL (1.8-7.7) 03/21/24 04:59 Lymph # (Auto) 0.9 10^3/uL (0.8-4.8) 03/21/24 04:59 Mchenry # (Auto) 0.4 10^3/uL (0.2-0.9) 03/21/24 04:59 Eos # (Auto) 0.0 10^3/uL (0.0-0.8) 03/21/24 04:59 Baso # (Auto) 0.0 10^3/uL (0.0-0.1) 03/21/24 04:59 Nucleated RBC % (auto) 0 % 03/21/24 04:59 Total Counted 100 (0-100) 03/13/24 18:29 Atypical Lymphs % 0.0 % (0-5) 03/13/24 18:29 Absolute Neutrophils 5.6 10^3/cmm (1.4-6.5) 03/13/24 18:29 Segmented Neutrophils 39 % 03/13/24 18:29 Band Neutrophils 36.0 % 03/13/24 18:29 Absolute Lymphocytes 1.3 10^3/cmm (1.2-3.4) 03/13/24 18:29 Lymphocytes (Manual) 18 % 03/13/24 18:29 Monocytes (Manual) 4.0 % 03/13/24 18:29 Absolute Monocytes 0.3 10^3/cmm (0.1-0.6) 03/13/24 18:29 Eosinophils (Manual) 0 % 03/13/24 18: Absolute Eosinophils 0.0 10^3/cmm (0.0-0.7) 03/13/24 18: Basophils (Manual) 1.0 % 03/13/24 18: Absolute Basophils 0.1 10^3/cmm (0.0-0.2) 03/13/24 18: Metamyelocytes 2.0 % 03/13/24 18: Nucleated RBCs # 0.0 /100WBC 03/21/24 04:59 Platelet Estimate Normal (Normal) 03/13/24 18:29 Giant Platelets Trace 03/13/24 18:29 Polychromasia Trace 03/13/24 18:29 PT 14.30 SECONDS (12.1-14.9) 03/13/24 18:48 INR 1.04 (0.8-1.2) 03/13/24 18:48 APTT 162.8 SECONDS (23.9-36.7) H* 03/14/24 06:15 D-Dimer 3.17 ug/mLFEU (0-0.59) H 03/13/24 18:48 Specimen Type Arterial 03/14/24 05:14 Sample Site Brachial, right 03/14/24 05:14 ABG pH 7.28 (7.35-7.45) L 03/14/24 05:14 ABG pCO2 39.9 mmHg (35-45) 03/14/24 05:14 ABG pO2 98.1 mmHg (80.0-100.0) 03/14/24 05:14 ABG PO2/FiO2 Ratio 280 03/14/24 05:14 ABG HCO3 18.7 mmol/L (22-26) L 03/14/24 05:14 ABG Base Excess -7.5 mmol/L (-2.0-2.0) L 03/14/24 05:14 Ismael Test N/a 03/14/24 05:14 Hematocrit 30.2 % (37-47) L 03/14/24 05:14 Hgb O2 Saturation 70.2 % (95-100) L 03/13/24 18:08 Carboxyhemoglobin 3.0 %THgb (0.4-20.1) 03/13/24 18:08 Methemoglobin 1.5 % (0.4-1.5) 03/13/24 18:08 Total Hemoglobin 11.2 g/dL (12-16) L 03/13/24 18:08 O2 Delivery Device Bipap 03/14/24 05:14 FiO2 35.0 % 03/14/24 05:14 Weigh And Charge Worker ID [email or web address] 03/14/24 05:14 Sodium 140 mmol/L (136-145) 03/21/24 04:59 Potassium 3.6 mmol/L (3.5-5.1) 03/21/24 04:59 Chloride 105 mmol/L (98-107) 03/21/24 04:59 Carbon Dioxide 24 mmol/L (22-29) 03/21/24 04:59 Anion Gap 14.6 (5-19) 03/21/24 04:59 BUN 46 mg/dL (8-23) H 03/21/24 04:59 Creatinine 1.0 mg/dL (0.5-0.9) H 03/21/24 04:59 GFR Calculation Not Reportable 03/21/24 04:59 Glucose 145 mg/dL (65-115) H 03/21/24 04:59 Calculated Osmolality 304 mOsm/kg (285-295) H 03/21/24 04:59 Lactic Acid 2.8 mmol/L (0.5-2.2) H 03/20/24 15:48 Lactic Acid (Sepsis) 2.3 mmol/L (0.5-2.2) H 03/20/24 18:27 Calcium 8.4 mg/dL (8.5-10.5) L 03/21/24 04:59 Phosphorus 4.4 mg/dL (2.5-4.5) 03/14/24 06:15 Magnesium 1.7 mg/dL (1.7-2.3) 03/21/24 04:59 Total Bilirubin 0.5 mg/dL (0.15-1.2) 03/19/24 12:42 AST 65 U/L (0-32) H 03/19/24 12:42 ALT 69 U/L (0-33) H 03/19/24 12:42 Alkaline Phosphatase 86 U/L (35-105) 03/19/24 12:42 Ammonia 43 umol/L (11-51) 03/18/24 17:35 Creatine Kinase 128 U/L (26-192) 03/18/24 17:35 Troponin T Baseline 69 ng/L (0-10) H 03/13/24 18:29 Troponin T 120 Minute 63.66 ng/L (0-10) H 03/13/24 20:40 Delta Troponin T -5.34 ABS# (0-10) L 03/13/24 20:40 Troponin T Hi Sens 6Hr 61.43 ng/L (0-10) H 03/14/24 00:30 Troponin T Hi Sens 6Hr Delta -7.57 ng/L (0-12) L 03/14/24 00:30 C-Reactive Protein 263.0 mg/L (0.0-4.9) H 03/14/24 06:15 Total Protein 6.8 g/dL (6.6-8.7) 03/19/24 12:42 Albumin 3.4 g/dL (3.5-5.2) L 03/19/24 12:42 Globulin 3.4 g/dL (1.3-4.6) 03/19/24 12:42 Lipase 51 U/L (13-60) 03/13/24 18:29 Vitamin B12 791 pg/mL (232-1245) 03/13/24 20:40 Procalcitonin 3.61 ng/mL (0-0.5) H 03/13/24 20:40 TSH 1.36 uIU/mL (0.27-4.20) 03/13/24 20:40 Urine Color Dark yellow (Yellow) A 03/13/24 18:41 Urine Appearance Turbid (CLEAR) A 03/13/24 18:41 Urine pH 5.0 (5-7) 03/13/24 18:41 Ur Specific Clifton 1.028 (1.005-1.030) 03/13/24 18:41 Urine Protein 2+ (Negative) A 03/13/24 18:41 Urine Glucose (UA) Negative (Normal) 03/13/24 18:41 Urine Ketones Trace (Negative) 03/13/24 18:41 Urine Blood 3+ (Negative) A 03/13/24 18:41 Urine Nitrate Negative (Negative) 03/13/24 18:41 Urine Bilirubin 3+ (Negative) H 03/13/24 18:41 Urine Urobilinogen 1.0 mg/dL (Negative) 03/13/24 18:41 Ur Leukocyte Esterase 1+ (Negative) A 03/13/24 18:41 Urine RBC 6-10 /hpf (0-2) 03/13/24 18:41 Urine WBC 11-20 /hpf (0-5) H 03/13/24 18:41 Ur Squamous Epith Cells 6-10 /hpf (0-5) 03/13/24 18:41 Amorphous Sediment Not Reportable 03/13/24 18:41 Urine Bacteria None seen /hpf (NONE) 03/13/24 18:41 Hyaline Casts 225.91 /lpf 03/13/24 18:41 Nasal MRSA (PCR) Not detected (Not Detecte) 03/14/24 13:30 Urine Opiates Screen Positive ng/mL (Negative) H 03/13/24 18:41 Acetaminophen < 5.0 ug/mL (10-30) L 03/13/24 18:29 Ur Barbiturates Screen Negative ng/mL (Negative) 03/13/24 18:41 Ur Phencyclidine Scrn Negative ng/mL (Negative) 03/13/24 18:41 Ur Amphetamines Screen Negative ng/mL (Negative) 03/13/24 18:41 U Benzodiazepines Scrn Positive ng/mL (Negative) H 03/13/24 18:41 Urine Cocaine Screen Negative ng/mL (Negative) 03/13/24 18:41 U Marijuana (THC) Screen Negative ng/mL (Negative) 03/13/24 18:41 Ethyl Alcohol < 10 mg/dL (0-10) 03/14/24 00:30 Serum Ketones Negative (Negative) 03/13/24 18:29 Adenovirus (PCR) Not detected (NOT DETECT) 03/18/24 17:30 C. pneumoniae DNA (PCR) Not detected (NOT DETECT) 03/18/24 17:30 C. difficile (PCR) Negative (Negative) 03/13/24 18:45 Coronavirus 229E (PCR) Not detected (NOT DETECT) 03/18/24 17:30 Human Metapneumovir PCR Not detected (NOT DETECT) 03/18/24 17:30 Influenza A (H1) PCR Not detected (NOT DETECT) 03/18/24 17:30 Influ A (H1/09) PCR Not detected (NOT DETECT) 03/18/24 17:30 Influenza A (H3) PCR Not detected (NOT DETECT) 03/18/24 17:30 Influenza Type A (PCR) Not detected (NOT DETECT) 03/18/24 17:30 Influenza Type B (PCR) Not detected (NOT DETECT) 03/18/24 17:30 M. pneumoniae (PCR) Not detected (NOT DETECT) 03/18/24 17:30 Parainfluenza 1 (PCR) Not detected (NOT DETECT) 03/18/24 17:30 Parainfluenza 2 (PCR) Not detected (NOT DETECT) 03/18/24 17:30 Parainfluenza 3 (PCR) Not detected (NOT DETECT) 03/18/24 17:30 Parainfluenza 4 (PCR) Not detected (NOT DETECT) 03/18/24 17:30 RSV Type A (PCR) Not detected (NOT DETECT) 03/18/24 17:30 RSV Type B (PCR) Not detected (NOT DETECT) 03/18/24 17:30 Entero/Rhino (PCR) Not detected (NOT DETECT) 03/18/24 17:30 SARS-CoV-2 (PCR) Detected (NOT DETECT) A 03/18/24 17:30 Vitals Last Vital Signs Temp 98.5 F 03/21/24 12:45 Pulse 62 03/21/24 13:30 Resp 22 H 03/21/24 13:30 BP 116/63 03/21/24 12:45 Pulse Ox 92 03/21/24 13:30 O2 Del Method Nasal Cannula 03/21/24 13:30 O2 Flow Rate 4 03/21/24 13:30 FiO2 35 03/15/24 07:43 Discharge Plan Discharge Patient Disposition: Xfer SNF Condition: Stable Prescriptions: New atorvastatin 40 mg Tablet 80 mg PO BEDTIME Qty: 30 0RF nystatin 100,000 unit/mL Suspension 500,000 unit PO QID 4 Days Qty: 80 0RF valacyclovir 1 gram Tablet 1,000 mg PO BID Qty: 10 0RF aspirin 81 mg Tablet,Delayed Release (Dr/Ec) 81 mg PO DAILY Qty: 30 0RF amlodipine 10 mg Tablet 10 mg PO DAILY Qty: 30 0RF nystatin 100,000 unit/gram Cream 1 applic topical BID Qty: 300 0RF furosemide 40 mg Tablet 20 mg PO DAILY@0800 Qty: 30 0RF potassium chloride 10 mEq capsule, extended release 10 meq PO DAILY Qty: 30 0RF Continued metoprolol tartrate 100 mg tablet 100 mg PO BID Qty: 180 2RF cyclobenzaprine 10 mg tablet 10 mg PO BID PRN (Reason: MUSCLE SPASMS) pregabalin 150 mg capsule 150 mg PO 2XD ibuprofen 800 mg tablet 800 mg PO Q8H PRN (Reason: Pain) hydroxychloroquine [Plaquenil] 200 mg tablet 200 mg PO BID Qty: 180 1RF prednisone 20 mg tablet See Rx Instructions PO .COMPLEX PRN (Reason: joint pain flare) Qty: 30 1RF Rx Instructions: take 1 or 2 tab daily for up to 7 days as needed for arthritis flare PO PRN; sulfasalazine 500 mg tablet 1,000 mg PO BID Qty: 360 1RF acetaminophen [Tylenol Extra Strength] 500 mg tablet 500 mg PO Q6H PRN (Reason: pain) Qty: 90 0RF Breztri Aerosphere 160-9-4.8 mcg/actuation HFA aerosol inhaler 2 inh inhalation BID Qty: 10.7 6RF nitroglycerin 0.4 mg tablet, sublingual 0.4 mg sublingual Q5M PRN (Reason: chest pain) Qty: 30 2RF Rx Instructions: do not exceed 3 doses per episode isosorbide mononitrate 30 mg tablet extended release 24 hr 30 mg PO DAILY Qty: 30 0RF ondansetron HCl 4 mg tablet 4 mg PO PRN PRN (Reason: Nausea And Vomiting) pantoprazole 40 mg tablet,delayed release (DR/EC) 40 mg PO DAILY escitalopram oxalate 10 mg tablet 10 mg PO DAILY Discontinued bumetanide 1 mg tablet 2 mg PO DAILY Qty: 180 3RF hydrocodone-acetaminophen 10-325 mg tablet 1 tab PO DAILY ropinirole 2 mg tablet 2 mg PO BEDTIME trazodone 150 mg tablet 150 mg PO DAILY PRN (Reason: Insomnia) diclofenac sodium 75 mg tablet,delayed release (DR/EC) 75 mg PO BID lisinopril 40 mg tablet 40 mg PO DAILY Qty: 90 3RF metoclopramide HCl 10 mg tablet 10 mg PO DAILY spironolactone 25 mg tablet 25 mg PO QAM Rx Instructions: TAKE ONE TABLET BY MOUTH EVERY MORNING FOR EDEMA Discharge Orders: Discharge Order (Routine); Ordered 03/21/24 Ordered By: Aide Beauchamp Other Ambulatory Orders: MCT/Event Monitor 30 Days (Routine) Timeframe: 1 Day Facility: [facility] - Location: Radiology Ordered By: Aide Beauchamp Referrals: [facility] [Outside] Inocencia Jaime APN [Primary Care Provider] - 1-3 days Everardo Raya MD [Physician] - 2 weeks (We have notified your physician's clinic of the need for a follow-up appointment to be scheduled. If you have not heard from them within the next 2 business days, please call them directly. ) Blanquita Lopez MD [Physician] - 1 month (your appointment will be scheduled when you see Katelin Mcdonald) Katelin Mcdonald FNP [Nurse Practitioner] - 04/03/24 8:30 am Discharge Diet: As Directed Discharge Activity: As per PT/OT instructions and Oxygen as instructed Patient Instructions: Altered Mental Status (ED), Pain Management, Stroke Stoplight Activity Restrictions/Additional Instructions: Appointment scheduled for TuesdayMarch 26 @ 2pm for the 30 day event monitor please arrive to [facility] 15 minutes prior to appointment. Discharge Attestations Time Spent in Discharge Care*: greater than 30 min Quality Metrics Clinical Quality Measures [ No reported AMI, CVA or VTE this stay] Coding Level of Care Code Acute Code for Chg Fwd Diagnoses COVID-19 U07.1 Chronic diastolic congestive heart failure I50.32 Heart failure chronicity: chronic Heart failure type: diastolic Acute kidney injury N17.9 Rhabdomyolysis M62.82 Altered mental status R41.82 Centrilobular emphysema J43.2 COPD type: emphysema Emphysema type: centrilobular
== END 2024-03-21 15:12 | disposition skilled nursing facility (03) | DRG 177 ==
LOC: ER 23:26 → MEDSURG 03-14 02:06
PROVIDERS: Student in an Organized Health Care Education/Training Program; Admitting Provider Internal Medicine; Emergency Provider Emergency Medicine; PCP Nurse Practitioner Family; Visit Provider Internal Medicine
DX: U07.1 COVID-19 (principal); G93.41 Metabolic encephalopathy; I61.8 Other nontraumatic intracerebral hemorrhage; J12.82 Pneumonia due to coronavirus disease 2019; I63.49 Cerebral infarction due to embolism of other cerebral artery; I13.0 Hypertensive heart and chronic kidney disease with heart failure and stage 1 through stage 4 chronic kidney disease, or unspecified chronic kidney disease; I50.32 Chronic diastolic (congestive) heart failure; N17.9 Acute kidney failure, unspecified; M62.82 Rhabdomyolysis; E87.4 Mixed disorder of acid-base balance; R06.03 Acute respiratory distress; N18.9 Chronic kidney disease, unspecified; F17.210 Nicotine dependence, cigarettes, uncomplicated; J43.2 Centrilobular emphysema; B00.1 Herpesviral vesicular dermatitis; Z91.199 Patient's noncompliance with other medical treatment and regimen due to unspecified reason; I27.20 Pulmonary hypertension, unspecified; R13.10 Dysphagia, unspecified; K64.9 Unspecified hemorrhoids; N39.46 Mixed incontinence; M06.042 Rheumatoid arthritis without rheumatoid factor, left hand; M06.041 Rheumatoid arthritis without rheumatoid factor, right hand; G47.33 Obstructive sleep apnea (adult) (pediatric); K52.9 Noninfective gastroenteritis and colitis, unspecified; E86.0 Dehydration; G25.81 Restless legs syndrome; I25.10 Atherosclerotic heart disease of native coronary artery without angina pectoris; K21.9 Gastro-esophageal reflux disease without esophagitis; R79.1 Abnormal coagulation profile; Z79.899 Other long term (current) drug therapy
CPT/HCPCS: 36415; 36600; 70450; 70544; 70547; 70551; 71045; 71250; 74176; 80048; 80053; 80306; 80307; 81001; 82009; 82140; 82274; 82550; 82607; 82803; 82805; 83605; 83630; 83690; 83735; 84100; 84145; 84443; 84484; 85007; 85025; 85378; 85610; 85730; 86140; 87040; 87045; 87070; 87086; 87106; 87177; 87205; 87209; 87427; 87449; 87486; 87493; 87581; 87633; 93005; 93970; 94640; 94660; 96365; 96366; 96367; 96372; 96375; 97110; 97116; 97162; 97167; 97530; 97535; 99285; C8929; J0248; J0696; J1100; J1644; J1940; J2310; J2470; J2543; J7030; J7040; J7050; J7626; J8540

== ENCOUNTER → 2024-04-03 08:20 | Outpatient (BNVA) | payer MEDICARE, MEDICAID, SELFPAY | PROVIDERS: PCP Nurse Practitioner Family; Visit Provider Nurse Practitioner Family | DX: I11.0 Hypertensive heart disease with heart failure (principal); I50.32 Chronic diastolic (congestive) heart failure; I25.119 Atherosclerotic heart disease of native coronary artery with unspecified angina pectoris; Z87.891 Personal history of nicotine dependence; M62.82 Rhabdomyolysis; Z86.16 Personal history of COVID-19 | CPT/HCPCS: 99214 ==

== ENCOUNTER → 2024-07-17 14:37 | Outpatient (BNVA) | payer MEDICARE, MEDICAID, SELFPAY | PROVIDERS: PCP Nurse Practitioner Family; Visit Provider Internal Medicine Cardiovascular Disease | DX: M79.89 Other specified soft tissue disorders (principal); M79.604 Pain in right leg; M79.605 Pain in left leg; Z79.82 Long term (current) use of aspirin; Z87.891 Personal history of nicotine dependence | CPT/HCPCS: 99214 ==

== ENCOUNTER → 2024-07-25 08:55 | Outpatient (BNVA) | payer MEDICARE, MEDICAID, SELFPAY | PROVIDERS: PCP Nurse Practitioner Family; Visit Provider Psychiatry & Neurology Neurology | DX: R29.898 Other symptoms and signs involving the musculoskeletal system (principal); R29.2 Abnormal reflex; M25.551 Pain in right hip; M54.16 Radiculopathy, lumbar region; M54.50 Low back pain, unspecified; I63.40 Cerebral infarction due to embolism of unspecified cerebral artery | CPT/HCPCS: 99213 ==

== ENCOUNTER 2024-07-27 10:39 | Outpatient (CLI) | payer MEDICARE, MEDICAID, SELFPAY ==
--- NOTE | 2024-07-27 11:30 | USCV_ITS ---
Tatiana Alvarez Age: 73 Gender: F : 1950 Exam Date: 07/27/2024 10:52 Ordering Phys: Tadeo Dey MD ([email or web address]) Technologist: JOSELIN Exam Location: [facility] Indication: leg swelling HISTORY: Lower extremity swelling. PROCEDURES: The following venous structures were evaluated: common femoral vein, profunda vein, proximal portion of the greater saphenous vein, superficial femoral vein, and the popliteal vein. In addition, the posterior tibial and peroneal trunk were evaluated. FINDINGS: No evidence of DVT seen in any vessel visualized at this time. CONCLUSIONS No evidence of right lower extremity DVT. No evidence of left lower extremity DVT. Dileep Mendes MD (Electronically Signed) Final Date: 27 July 2024 11:58 S
== END 2024-07-27 10:40 | disposition home or self-care (01) ==
PROVIDERS: PCP Nurse Practitioner Family; Visit Provider Internal Medicine Cardiovascular Disease
DX: M79.89 Other specified soft tissue disorders (principal)
CPT/HCPCS: 93970

== ENCOUNTER 2024-08-08 09:14 | Outpatient (CLI) | payer MEDICARE, MEDICAID, SELFPAY ==
--- NOTE | 2024-08-08 09:30 | MR_ITS ---
WS: [id number] MRI LUMBAR SPINE NONCONTRAST HISTORY: M54.2 - Cervicalgia, low back pain, numbness RIGHT leg. COMPARISON: 09/02/2021 TECHNIQUE: Sagittal and axial multisequence imaging is submitted. Degenerative disc disease in the cervical and thoracic spines. Increase in thoracic kyphosis. Lumbosacral fusion beginning at L3-S2. Interbody spacers at L2-3, L3-4 and L4-5. Scoliosis and LEFT curvature lumbar spine. Disc spaces are narrowed. L2 retrolisthesis by 5 mm with mild progression since the prior study. There is a small amount of marrow edema in the adjacent endplates of L2 and L3. Additional retrolisthesis of L1 by 4 mm. Conus terminates normally at L1-2 disc level. T11-12: Central disc protrusion appears to extend just greater to the LEFT. L1-L2: Diffuse annular disc bulging with osteophytic ridging, mild facet arthritis. Disc osteophyte extends into the RIGHT subarticular recess and RIGHT foramen. Moderate bilateral foraminal stenosis, RIGHT greater than LEFT. Disc contacts the traversing RIGHT L2 nerve root. L2-L3: Large posterior laminectomy defect. Patulous thecal sac. No central stenosis. Foramina poorly visualized. L3-L4: Patulous thecal sac with large posterior laminectomy defects. Mild foraminal narrowing. L4-L5: Patulous thecal sac with clumping of the nerve roots. Mild foraminal narrowing. L5-S1: Large laminectomy defect. Patulous thecal sac with clumping of the nerve roots. Mild bilateral foraminal stenosis. Elongated fluid collection measuring 6.0 cm in length centered at the L4 level in the paravertebral postoperative site. Most likely this is a seroma. MR/MR lumbar spine wo con* [id number] IMPRESSION: 1. Status post posterior lumbosacral fusion from L3-S2. 2. Large posterior laminectomy defects from L2-L5. 3. Postoperative fluid collection likely a seroma centered in the laminectomy sites. 4. Asymmetric disc bulging at L1-2 extending into the RIGHT subarticular reces s contacting the traversing RIGHT L2 nerve root. Moderate bilateral foraminal s tenosis at L1-2. 5. Patulous thecal sac from L2-3 to L5-S1. Mild foraminal narrowing. Foramina evaluation is limited due to artifact from the hardware.
== END 2024-08-08 09:15 | disposition home or self-care (01) ==
LOC: RAD 09:16
PROVIDERS: PCP Internal Medicine; Visit Provider Psychiatry & Neurology Neurology
DX: M48.062 Spinal stenosis, lumbar region with neurogenic claudication (principal); M54.2 Cervicalgia; G89.29 Other chronic pain; R29.2 Abnormal reflex; Z98.1 Arthrodesis status
CPT/HCPCS: 72148

== ENCOUNTER → 2024-08-16 14:55 | Outpatient (BNVA) | payer MEDICARE, MEDICAID, SELFPAY | PROVIDERS: PCP Internal Medicine; Visit Provider Orthopaedic Surgery | DX: M54.50 Low back pain, unspecified (principal) | CPT/HCPCS: 72100; 99203 ==

== ENCOUNTER → 2024-08-20 10:34 | Outpatient (BNVA) | payer MEDICARE, MEDICAID, SELFPAY | PROVIDERS: PCP Internal Medicine; Visit Provider Nurse Practitioner Family | DX: I11.0 Hypertensive heart disease with heart failure (principal); I50.30 Unspecified diastolic (congestive) heart failure; I73.9 Peripheral vascular disease, unspecified; I25.10 Atherosclerotic heart disease of native coronary artery without angina pectoris; Z79.82 Long term (current) use of aspirin; Z87.891 Personal history of nicotine dependence | CPT/HCPCS: 99214 ==

== ENCOUNTER 2024-08-28 06:06 | Inpatient (IN) | payer MEDICARE, MEDICAID, SELFPAY ==
--- OUTSIDE RECORDS SUMMARY | 2024-03-21 04:00 | XMS_ITS ---
Author Organization [facility] Address [address] [place] [address] Care Team Providers Care Compensation And Benefits Manager Name Role Phone Inocencia Jaime Primary Care Provider [phone] INOCENCIA JAIME Unavailable Unavailable Antwan Dos Santos Unavailable [phone] REASON FOR VISIT 1 month f/u RK Problems Problem Type SNOMED Code ICD Code Onset Dates Problem Status W/U Status Risk Notes Problem Cervical radiculopathy (M54.12) Active confirmed Problem Cervical spondylosis (348923260) Cervical spondylosis (M47.812) Active confirmed Problem Lumbosacral radiculopathy (3044556) L-S radiculopathy (M54.17) Active confirmed Problem Lumbosacral spondylosis (329704784) Lumbosacral spondylosis (M47.817) Active confirmed Encounters Encounter Location Date Provider Diagnosis [facility] [address] [address] 03/21/2024 Antwan Dos Santos Chronic pain syndrom e G89.4 ; Other cervical disc degeneration, unspecified cervical region M50.30 ; Cervical radiculopathy M54.12 ; Cervical spondylosis M47.812 ; Degeneration of intervertebral disc of lumbar region with discogenic back pain M51.360 ; L-S radiculopathy M54.17 ; Lumbosacral spondylosis M47.817 ; Trochanteric bursitis, right hip M70.61 ; Chronic kidney disease, stage 3b N18.32 and long-term (current) use of opiate analgesic Z79.891 Assessments [...] disease, stage 3b (ICD-10 - N18.32) 03/21/2024 long-term (current) use of opiate analgesic (ICD-10 - [...] of average pain . , ___ , 8/10 Severity of pain right now . , [...] sent for confirmation. , ___ , ___ [place] Prescription Monitoring Program . , ___ , [...] and [facility] ___ Past medication you have [...] distributions Progress Notes * JOANN ESCALANTE EDOB: (73 yo F)Acc No.[id number]:03/21/2024 Progress Notes Patient: JOANN GAXIOLA Provider: Fortino Dos Santos D.O. :1950 A ge:73 Y S ex:Female Date:03/21/2024 Address:[address] [place], [place] [phone] Pcp:Inocencia Jaime Subjective: * Chief Complaints: * 1 month f/u RK * HPI: P ain Details: Pain Location . , ___ , neck, left arm, mid back, left shoulder, lower back, right leg. Quality . , ___ , Sharp, Stabbing, Dull, Aching. Severity of pain at its worst . , ___ , 910. Severity of pain at its best . [...] sent for confirmation. , ___ , ___. [place] Prescription Monitoring Program . 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 Date: 0 03/21/2024 Generated for Johnna pollard/Mitchell/Mary Lou on: 0 08/28/2024 06:17 AM CDT
[2024-08-28] VITALS (21 sets, daily range): BP systolic 95–136; BP diastolic 50–112; PULSE 75–125; RESP 12–24; TEMP 36.6–38.1; O2SAT 88–96; BMI 28.9
--- OUTSIDE RECORDS SUMMARY | 2024-08-28 06:16 | XMS_ITS | Clinical Summary ---
Author Organization [facility] de Address [address] [place] [address] Phone Care Team Providers Care Packing And Final Assembly Supervisor Name Role Phone Unavailable Primary Care Provider Unavailabl e Social History Tobacco Use Types Packs/Day Years Used Date Smoking Tobacco: Never Assessed Comments Unknown Sex and Gender Information Value Date Recorded Sex Assigned at Not on file Legal Sex Female 1:30 PM CDT Gender Identity Not on file Sexual Orientation Not on file Plan of Treatment Health Maintenance Due Date Last Done Comments DTAP/TDAP/TD VACCINES (1 - Tdap) 11/29/1967 COLORECTAL SCREENING 1993 Colorectal Cancer Screening 1993 FIT-DNA Q 3 years 1993 FIT/FOBT Q 1 year 1993 Flex Sig/CT Colonography Q 5 years 1993 PNEUMOCOCCAL VACCINE 50+ YEARS (1 of 1 - PCV) 11/28/18 99 ZOSTER VACCINE (1 of 2) 1998 OSTEOPOROSIS SCREENING 2013 RSV VACCINE (60+ or ) (1 - 1-dose 75+ series) 11/29/2023 INFLUENZA VACCINE (#1) 2024
--- OUTSIDE RECORDS SUMMARY | 2024-08-28 06:17 | XMS_ITS | Clinical Summary ---
Author Organization [facility] Address [address] Ricardo: Epic Prelude [place] [address] Care Team Providers Care Manager Basketball Name Role Phone Unavailable Primary Care Provider Unavailabl e Encounters Date Type Department Care Team Description 08/22/2024 External Device Data [facility] ABSTRACTION Provider, Abstract 08/22/2024 External Device Data [facility] ABSTRACTION Provider, Abstract 07/24/2024 External Device Data [facility] ABSTRACTION Provider, Abstract 06/28/2024 External Device Data [facility] ABSTRACTION Provider, Abstract 06/27/2024 External Device Data [facility] ABSTRACTION Provider, Abstract 06/26/2024 External Device Data [facility] ABSTRACTION Provider, Abstract from Last 3 Months Social History Tobacco Use Types Packs/Day Years Used Date Smoking Tobacco: Never Assessed Comments Unknown Sex and Gender Information Value Date Recorded Sex Assigned at Not on file Legal Sex Female 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
--- OUTSIDE RECORDS SUMMARY | 2024-08-28 06:17 | XMS_ITS | Encounter Summary ---
Author Organization [facility] Address 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
--- OUTSIDE RECORDS SUMMARY | 2024-08-28 06:17 | XMS_ITS | Encounter Summary ---
Author Organization [facility] [address] Address [address] [place] [address] Care Team Providers Care Jigger Crown Pouncing Machine Operator Name Role Phone Unavailable Primary Care Provider [...] on file Legal Sex Female 10:48 PM NUTRITION MANAGER Gender Identity Not on file Sexual Orientation Not on file documented as of this encounter Plan of Treatment Not on file documented as of this encounter Visit Diagnoses Not on filedocumented in this encounter
--- OUTSIDE RECORDS SUMMARY | 2024-08-28 06:17 | XMS_ITS | Patient Health Record ---
Author Organization [facility] Address [address] [place] [address] Care Team Providers Care Formation Fracturing Operator Name Role Phone Inocencia Jaime Primary Care Provider [phone] INOCENCIA JAIME Unavailable Unavailable Migration, Provider Unavailable Unavailable Antwan Dos Santos Unavailable [phone] Merari Mcdonald Unavailable [phone] Allergies Allergen (clinical drug ingredient) Drug/Non Drug Allergy documented on EMR Reaction Allergy Type Onset Date Status amoxicillin / clavulanate Augmentin diarrhea Drug Allergy Active metronidazole Flagyl Unknown Drug Allergy Act alessandra ibuprofen Ibuprofen Unknown Drug Allergy Active Results Component Value Reference Range Notes Remote Monitoring (RPM): Sca le Reviewed date:10/24/2023 03:37:46 PM Interpretation: Performing Lab: Notes/Report: Remote Monitoring (RPM): Pul se Ox Reviewed date:10/24/2023 03:37:34 PM Interpretation: Performing Lab: Notes/Report: Remote Monitoring (RPM): Blo od Pressure Reviewed date:10/24/2023 03:37:23 PM Interpretation: Performing Lab: Notes/Report: Reason For Referral No Information Medications Medication SIG (Take, Route, Frequency, Duration) Notes Start Date End Date Status Ondansetron HCl 4 mg Tablet TAKE ONE TABLET BY MOUTH EVERY 4 HOURS NEEDED FOR NAUSEA; Duration: 5 Active Metoclopramide HCl 10 mg Tablet TAKE ONE TABLET BY MOUTH TWICE DAILY BEFORE MEALS; Duration: 90 Active Cyclobenzaprine HCl 10 MG Tablet TAKE ONE TABLET BY MOUTH TWICE DAILY NEEDED Oral Active Isosorbide Mononitrate ER 30 mg Tablet Extended Release 24 Hour TAKE ONE TABLET BY MOUTH DAILY; Duration: 30 days Active Cyanocobalamin 1000 MCG/ML Solution INJECT 1ML INTO THE MUSCLE EVERY TWO WEEKS; Duration: 30 Active Pregabalin 150 mg Capsule TAKE ONE CAPSULE BY MOUTH TWICE DAILY; Duration: 30 03/26/2024 Active Cyanocobalamin 1000 MCG/ML Solution INJECT 1ML INTO THE MUSCLE EVERY TWO WEEKS Injection Active Albuterol Sulfate (2.5 MG/3ML) 0.083% Nebulization Solution 3 mL as needed Inhalation every 6 hrs; Duration: 90 days Active traZODone HCl 150 mg Tablet TAKE ONE TABLET BY MOUTH ONCE DAILY AT BEDTIME NEEDED; Duration: 30 Active Adults Multivitamin *Reorder fro [facility] for eRx and Interaction Alerts* Active Temazepam 15 MG Capsule 1 capsule at bedtime as needed Orally Once a day; Duration: 30 days 03/15/2023 Active BD Luer-Antonia Syringe 3 mL 25 x 5/8 USE DIRECTED FOR B-12 INJECTIONS *Reorder from [facility] for eRx and Interaction Alerts* Active BD Luer-Antonia Syringe 25G X 5/8 3 ML Miscellaneous USE DIRECTED FOR B-12 INJECTIONS; Duration: 30 Active Vitamin B12 100 MCG Tablet as directed Orally Once a day; Duration: 90 days Active rOPINIRole HCl 2 mg Tablet TAKE ONE TABLET BY MOUTH ONE TO THREE HOURS BEFORE BEDTIME ONCE DAILY; Duration: 90 Active Pseudoephedrine HCl ER 240 MG Tablet Extended Release 24 Hour 1 tablet as needed Orally Once a day; Duration: 30 days Active sulfaSALAzine 500 MG Tablet TAKE TWO TABLETS BY MOUTH TWICE DAILY Oral Active Spironolactone 25 mg Tablet TAKE ONE TABLET BY MOUTH EVERY MORNING; Duration: 90 Active Nystop 638900 UNIT/GM Powder APPLY TOPICALLY TWICE DAILY FOR SKIN YEAST; USE ON ABDOMEN / GROIN AREA; Duration: 30 Active predniSONE 10 mg Tablet TAKE ONE TABLET BY MOUTH DAILY; Duration: 30 Active Omeprazole 40 MG Capsule Delayed Release TAKE ONE CAPSULE BY MOUTH TWICE DAILY Oral Active Magnesium 400 MG Tablet as directed Orally Active Vitamin B12 3000 MCG Tablet Sublingual as directed Sublingual Not-Taking Ibuprofen 800 MG Tablet TAKE ONE TABLET BY MOUTH EVERY 8 HOURS WITH FOOD OR MILK NEEDED Oral Active Magnesium Oxide 400 MG Tablet 1 tablet as needed Orally Once a day Not-Taking Montelukast Sodium 10 MG Tablet 1 tablet Orally Once a day; Duration: 90 days Active Mometasone Furoate 50 MCG/ACT Suspension 2 sprays (2 sprays in each nostril) Nasally Twice a day; Duration: 30 days 11/18/2022 Active Diclofenac Sodium 75 MG Tablet Delayed Release TAKE ONE TABLET BY MOUTH TWICE DAILY Oral Active Bumetanide 2 mg Tablet TAKE TWO TABLETS BY MOUTH ONCE DAILY FOR 30 DAYS; Duration: 30 Active Diclofenac Sodium 75 mg Tablet Delayed Release TAKE ONE TABLET BY MOUTH TWICE DAILY; Duration: 30 Active Metoprolol Tartrate 100 mg Tablet TAKE ONE TABLET BY MOUTH TWICE DAILY WITH FOOD; Duration: 30 days Active Estradiol 0.5 MG Tablet 1 tablet Orally Once a day Active clonazePAM 0.5 MG Tablet 1 tablet at bedtime Orally Once a day; Duration: 30 days 03/24/2022 Not-Taking Escitalopram Oxalate 10 mg Tablet TAKE ONE TABLET BY MOUTH DAILY; Duration: 30 Active Lisinopril 40 mg Tablet TAKE ONE TABLET BY MOUTH ONCE DAILY; Duration: 90 days Active Immunizations Vaccine Route Administration Date Status Comme nts Flucelvax Trivalent, Syringe 0.5 mL, PF Unknown 12/20/2023 Refused Prevnar 20 IM Intramuscular 08/16/2022 Administered [id number]- Patient tolerated well. Social History Tobacco Use: Social History Observation Description Date Details (start date - stop date) Current Smoker NA - NA Social History Depression Screening Social Info Question Answer Notes PHQ-9 Little interest or p maury in doing things Nearly every day Feeling down, depressed, or hopeless Several day s Trouble falling or staying a sleep, or sleeping too much Nearly every day Feeling tired or having little energy Nearly nicole ry day Poor appetite or overeating Nearly every day Feeling bad about yourself, or that you are a failure, or have let yourself or your family down Several days Trouble concentrating on thi ngs, such as reading the newspaper or watching television Nearly every day Moving or speaking so slowly that other people could have noticed. Or the opposite ? being so fidgety or restless that you have been moving around a lot more than usual Not at all Thoughts that you would be b anny off , or of hurting yourself in some way Not at all Total Score 17 Interpretation Moderately severe depression Drugs/Alcohol: Social Info Question Answer Notes Alcohol Screen (Audit-C) Did you have a drink containing alcohol in the past year? No Points 0 Interpretation Negative Drugs Have you used drugs other than those for medical reasons in the past 12 months? No Tobacco Use: Social Info Question Answer Notes xTobacco Use/Smoking Are you a current smoker How often do you smoke cigarettes? every day How many cigarettes a day do you smoke? 11-20 Additional Details Category Social Info Options Details Migrated Social History Migrated Social History Alcoholic beverages? - No, Currently on disability? - Yes, Drug or substance abuse? - Yes, Involved in any legal proceedings or lawsuits? - No, Marital Status - , Nonprescription drug use? - No, Participation in detoxification or rehabilitation - Yes : alcohol, Smoking - 2 PPD : yes, Smoking status (MU) - Current every day smoker, Working currently? - No Section Notes: 03-24-22 PHQ9 03-24-22 PHQ9 10/12/23 PHQ9 03-24-22 PHQ9 03-24-22 PHQ9 03-24-22 PHQ9 03-24-22 PHQ9 03-24-22 PHQ9 03-24-22 PHQ9 03-24-22 PHQ9 03-24-22 PHQ9 03-24-22 PHQ9 03-24-22 PHQ9 03-24-22 PHQ9 03-24-22 PHQ9 03-24-22 PHQ9 03-24-22 PHQ9 10/12/23 PHQ9 03-24-22 PHQ9 10/12/23 PHQ9 03-24-22 PHQ9 10/12/23 PHQ9 03-24-22 PHQ9 10/12/23 PHQ9 03-24-22 PHQ9 03-24-22 PHQ9 03-24-22 PHQ9 03-24-22 PHQ9 03-24-22 PHQ9 03-24-22 PHQ9 03-24-22 PHQ9 03-24-22 PHQ9 03-24-22 PHQ9 03-24-22 PHQ9 03-24-22 PHQ9 03-24-22 PHQ9 03-24-22 PHQ9 03-24-22 PHQ9 03-24-22 PHQ9 03-24-22 PHQ9 03-24-22 PHQ9 03-24-22 PHQ9 03-24-22 PHQ9 03-24-22 PHQ9 10/12/23 PHQ9 03-24-22 PHQ9 10/12/23 PHQ9 03-24-22 PHQ9 10/12/23 PHQ9 03-24-22 PHQ9 10/12/23 PHQ9 03-24-22 PHQ9 10/12/23 PHQ9 2 PHQ9 10/12/23 PHQ9 - PHQ9 10/12/23 PHQ9 Problems Problem Type SNOMED Code ICD Code Onset Dates Problem Status W/U Status Risk Notes Problem Tobacco user (857063982) Nicotine dependence, cigarettes, uncomplicated (F17.210) Active confirmed Problem Chronic pain syndrome (962747698) Chronic pain syndrome (G89.4) 07/21/19 Active confirmed Problem Hypertensive heart failure (91578213) Hypertensive heart disease with heart failure (I11.0) Active confirmed Problem Chronic obstructive pulmonary disease (64045199) Chronic obstructive pulmonary disease, unspecified (J44.9) 07/21/19 Active confirmed Problem Cervical spondylosis without myelopathy (725592716) Other spondylosis with radiculopathy, cervical region (M47.22) 07/21/19 Active confirmed Problem Lumbosacral spondylosis without myelopathy (89748030) Other spondylosis with radiculopathy, lumbosacral region (M47.27) 07/21/19 Active confirmed Problem Degeneration of cervical intervertebral disc (78873077) Other cervical disc degeneration, unspecified cervical region (M50.30) 07/21/19 Active confirmed Problem Degeneration of lumbar intervertebral disc (42382412) Other intervertebral disc degeneration, lumbar region (M51.36) 07/21/19 Active confirmed Problem Abnormal gait (80548329) Unspecified abnormalities of gait and mobility (R26.9) 07/21/19 Active confirmed Problem Personal history of primary malignant neoplasm of female genital organ (094017900) Personal history of malignant neoplasm of other female genital organs (Z85.44) 07/21/19 Active confirmed Problem History of fall (177145580) History of falling (Z91.81) Active confirmed Problem Cervical radiculopathy (65371990) Cervical radiculopathy (M54.12) Active confirmed Problem Anxiety (00867899) Anxiety (F41.9) Active confirmed Problem Neuropathy (677624286) Neuropathy (G62.9) Active confirmed Problem Lumbosacral spondylosis with radiculopathy (315368992) Lumbosacral spondylosis with radiculopathy (M47.27) Active confirmed Problem Sinusitis (58510536) Sinusitis (J32.9) Active confirmed Problem Insomnia (277814676) Insomnia (G47.00) Active confirmed Problem Cervical spondylosis (743648464) Cervical spondylosis (M47.812) Active confirmed Problem Degeneration of lumbosacral intervertebral disc (96308184) Disc degeneration, lumbosacral (M51.37) Active confirmed Problem Congestive heart failure (80689878) CHF (congestive heart failure) (I50.9) Active confirmed Problem Cervical disc disorder (816672930) DDD (degenerative disc disease), cervical (M50.30) Active confirmed Problem Depression (092642213) Depression (F32.9) Active confirmed Problem COPD - Chronic obstructive pulmonary disease (90792431) COPD (chronic obstructive pulmonary disease) (J44.9) Active confirmed Problem Ulcerative colitis (40697276) Ulcerative colitis (K51.90) Active confirmed Problem Acute exacerbation of chronic obstructive airways disease (942192338) COPD with acute exacerbation (J44.1) Active confirmed Problem Systemic lupus erythematosus (15470743) Systemic lupus erythematosus, unspecified SLE type, unspecified organ involvement status (M32.9) Active confirmed Problem Allergic rhinitis (52369336) Rhinitis, allergic (J30.9) Active confirmed Problem Rheumatoid arthritis (37245427) Rheumatoid arthritis (M06.9) Active confirmed Problem Recurrent falls (922597438) Falls frequently (R29.6) Active confirmed Problem Hypertension (95321215) Hypertension (I10) Active confirmed Problem Hyperlipidemia (10791675) Hyperlipidemia (E78.5) Active confirmed Problem Cervical spondylosis without myelopathy (548879869) Cervical spondylosis with radiculopathy (M47.22) Active confirmed Problem Chronic obstructive pulmonary disease (76414039) COPD, moderate (J44.9) Active confirmed Problem Lumbosacral spondylosis without myelopathy (78160605) Spondylosis of lumbar spine (M47.816) Active confirmed Problem Abnormal gait (45903209) Abnormality of gait and mobility (R26.9) Active confirmed Problem Skin sensation disturbance (32666357) Paresthesia of bilateral legs (R20.2) Active confirmed Problem Chronic kidney disease stage 3B (disorder) (910000082) Chronic kidney disease, stage 3b (N18.32) 07/21/19 24 Active confirmed Problem Chronic kidney disease stage 3B (disorder) (372950500) Stage 3b chronic kidney disease (N18.32) Active confirmed Problem Lumbosacral radiculopathy (5280174) L-S radiculopathy (M54.17) Active confirmed Problem History of cancer of vulva (083280677) History of cancer of vulva (Z85.44) Active confirmed Problem Lumbosacral spondylosis (403495972) Lumbosacral spondylosis (M47.817) Active confirmed Problem Food insecurity (705284492) Food insecurity (Z59.41) Active confirmed Problem Financial insecurity (9237377429) Financial insecurity (Z59.86) Active confirmed Vital Signs Heart Rate 84 /min 12/20/2023 Temperature 97.2 degrees Fahrenheit 12/20/2023 Respiratory Rate 20 /min 12/20/2023 Height-cm 165.1 cm 02/16/2024 Oximetry 99 % 12/20/2023 Blood pressure diastolic 80 mm Hg 12/20/2023 Weight-kg 74.84 kg 12/20/2023 Height 65 in 02/16/2024 Blood pressure systolic 160 mm Hg 12/20/2023 Weight 165 lbs 12/20/2023 BMI 27.45 kg/m2 12/20/2023 Encounters Encounter Location Date Provider Diagnosis [facility] [address] [place] [address] 09/13/[address] [facility] [address] [address] 09/27/2023 Inocencia Jaime Lumbar radiculopathy M54.16 and Rheumatoid arthritis M06.9 [facility] [address] [place] [address] 09/28/2023 Inocencia Jaime CHF (congestive hear t failure) I50.[address] [facility] [address] [address] 10/12/2023 Inocencia Jaime Advanced care planning/counseling discussion Z71.89 ; Encounter for Medicare annual wellness exam Z00.00 ; Hypertension I10 ; Hyperlipidemia E78.5 ; Rheumatoid arthritis M06.9 and Depression F32.9 [facility] [address] [place] [address] 10/13/[address] [facility] [address] [place] [address] 11/01/2023 Inocencia Jaime Bilateral leg edema R60.0 ; Cellulitis of left lower extremity L03.116 and Need for RSV vaccination Z29.11 [facility] [address] [facility] [address] [place] [address] 11/07/2023 Inocencia Jaime Cellulitis of left lower extremity L03.116 and Bilateral leg edema R60.0 [facility] [address] [place] [address] 11/10/[address] [facility] [address] [place] [address] 12/20/2023 Inocencia Jaime Hypertension I10 ; Encounter for immunization Z23 and Immunization not carried out because of patient refusal Z28.21 [facility] [address] [place] [address] 12/21/2023 Antwan Dos Santos Chronic pain syndrom e G89.4 ; DDD (degenerative disc disease), cervical M50.30 ; Cervical radiculopathy M54.12 ; Cervical spondylosis M47.812 ; L-S radiculopathy M54.17 ; Lumbosacral spondylosis M47.817 ; Greater trochanteric bursitis of right hip M70.61 ; Stage 3b chronic kidney disease N18.32 ; History of cancer of vulva Z85.44 and 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 Z79.891 [facility] [address] [place] [address] 01/19/2024 Merari Mcdonald Chronic pain syndrom e G89.4 ; Other cervical disc degeneration, unspecified cervical region M50.30 ; Cervical radiculopathy M54.12 ; Cervical spondylosis M47.812 ; Degeneration of intervertebral disc of lumbar region with discogenic back pain M51.360 ; L-S radiculopathy M54.17 ; Lumbosacral spondylosis M47.817 ; Trochanteric bursitis, right hip M70.61 ; Chronic kidney disease, stage 3b N18.32 and jail (current) use of opiate analgesic Z79.891 [facility] [address] [place] [address] 02/16/2024 Merari Mcdonald Chronic pain syndrom e G89.4 ; Other cervical disc degeneration, unspecified cervical region M50.30 ; Cervical radiculopathy M54.12 ; Cervical spondylosis M47.812 ; Degeneration of intervertebral disc of lumbar region with discogenic back pain M51.360 ; L-S radiculopathy M54.17 ; Lumbosacral spondylosis M47.817 ; Trochanteric bursitis, right hip M70.61 ; Chronic kidney disease, stage 3b N18.32 and jail (current) use of opiate analgesic Z79.891 [facility] 0 12/03/2023 Provider Migration [facility] 0 0 12/04/[address] [facility] [address] [address] 09/08/2023 Inocencia [facility] [address] [place] [address] 09/13/2023 Inocencia Jaime Hypertension I10 and Hyperlipidemia E78.5 [facility] [address] [place] [address] 09/13/2023 Inocencia [facility] [address] [place] [address] 10/14/2023 Inocencia Jaime Anxiety F41.9 and Hyperlipidemia E78.5 [facility] [address] [place] [address] 10/14/2023 Inocencia [facility] [address] [place] [address] 10/17/2023 Inocencia Jaime Hypertension I10 ; COPD (chronic obstructive pulmonary disease) J44.9 and CHF (congestive heart failure) I50.9 [facility] [address] [place] [address] 10/18/2023 Inocencia Addison Hypertension I10 ; Hypertensive heart disease with heart failure I11.0 ; CHF (congestive heart failure) I50.9 ; COPD (chronic obstructive pulmonary disease) J44.9 ; Anxiety F41.9 and Depression F32.9 [facility] [address] [place] [address] 10/19/2023 Inocencia [facility] [address] [place] [address] 11/10/2023 Inocencia [facility] [address] [place] [address] 11/10/2023 Inocencia Jaime Hypertension I10 and Hyperlipidemia E78.[address] [address] 11/15/2023 Inocencia [facility] [address] [place] [address] 12/12/2023 Inocencia Jaime Nicotine dependence, cigarettes, uncomplicated F17.210 and COPD (chronic obstructive pulmonary disease) J44.9 [facility] [address] [place] [address] 01/10/2024 Inocencia Addison Spondylosis of lumba r spine M47.816 [facility] [address] [place] [address] 01/10/2024 Inocencia Jaime Hyperlipidemia E78.5 and Hypertension I10 [facility] [address] [place] [address] 01/17/2024 Inocencia [facility] [address] [place] [address] 01/19/2024 Antwan Dos Santos Chronic pain syndrom e G89.4 [facility] [address] [place] [address] 01/19/2024 Antwan Dos Santos [facility] [address] [place] [address] 02/13/2024 Inocencia Jaime Hyperlipidemia E78.5 and CHF (congestive heart failure) I50.9 [facility] [address] [place] [address] 02/16/2024 Antwan Dos Santos Chronic pain syndrom e G89.4 [facility] [address] [place] [address] 03/01/2024 Antwan Dos Santos Chronic pain syndrom e G89.4 [facility] [address] [place] [address] 03/14/2024 Inocencia Jaime Chronic pain syndrom e G89.4 and Hypertension I10 [facility] [address] [place] [address] 04/23/2024 Inocencia Jaime Hypertension I10 and Rheumatoid arthritis M06.9 [facility] [address] [place] [address] 05/16/2024 Inocencia Jaime Assessments Encounter Date Diagnosis (ICD Code) Assessment Notes Treatment Notes Treatment Clinical Notes Section Notes 09/27/2023 Lumbar radiculopathy (ICD-10 - M54.16) Will order new lift chair. 09/27/2023 Rheumatoid arthritis (ICD-10 - M06.9) 09/28/2023 CHF (congestive heart failure) (ICD-10 - I50.9) 09/13/2023 Hypertension (ICD-10 - I10) 10/12/2023 Encounter for Medicare annual wellness exam (ICD-10 - Z00.00) Diagnosis reconciliation performed and verified as listed in Assessments. 10/12/2023 Advanced care planning/counseli ng discussion (ICD-10 - Z71.89) Provided advanced care planning including the explanation and discussion of advance directives such as standard forms by the physician or other qualified healthcare professional, [id number] with the patient, family member(s), and/or surrogate. Diagnosis reconciliation performed and verified as listed in Assessments. 10/14/2023 Anxiety (ICD-10 - F41.9) Generalized Anxiety Disorder: Care Instructions material was published 10/17/2023 Hypertension (ICD-10 - I10) 10/18/2023 Hypertensive heart disease with heart failure (ICD-10 - I11.0) Patient would benefit from Remote Patient Monitoring of blood pressure, heart rate, pulse ox and weight. 10/18/2023 CHF (congestive heart failure) (ICD-10 - I50.9) Patient would benefit from Remote Patient Monitoring of blood pressure, heart rate, pulse ox and weight. 10/18/2023 Hypertension (ICD-10 - I10) 11/01/2023 Cellulitis of left lower extremity (ICD-10 - L03.116) Recheck in 1 week. 11/01/2023 Bilateral leg edema (ICD-10 - R60.0) 11/07/2023 Cellulitis of left lower extremity (ICD-10 - L03.116) Recheck in 1 week. 11/10/2023 Hypertension (ICD-10 - I10) 12/12/2023 Nicotine dependence, cigarettes, uncomplicated (ICD-10 - F17.210) Deciding About Using Medicines To Quit Smoking material was published 12/20/2023 Hypertension (ICD-10 - I10) Monitor BP at home daily, recheck in 2 weeks. 12/21/2023 Chronic pain syndrome (ICD-10 - G89.4) I had a nice visit with the patient today regarding her chronic pain issues. Overall, she seems to be doing alright with the physical therapy. She is only done about 6 sessions so far but she does feel like it is helping a little bit. We will continue her medications unchanged and see her back in a month. At that point, we will decide if we need to order a new MRI and we can proceed accordingly from there. 12/21/2023 DDD (degenerative disc disease), cervical (ICD-10 - M50.30) 01/10/2024 Hyperlipidemia (ICD-10 - E78.5) 01/19/2024 Chronic pain syndrome (ICD-10 - G89.4) I had a nice discussion with the patient today regarding her chronic pain complaints. She states she did finish physical therapy and feels like it has helped her to be stronger. However, she still having a lot of neck and lower back pain as well as radicular symptoms. She has also tried seeing a chiropractor. After discussion, we will order cervical and lumbar MRI. She denies any other changes since we last seen her any untoward side effects of the medication. She will continue her medication at present level and return to clinic in 1 month to monitor for treatment effectiveness and compliance. 01/19/2024 Other cervical disc degeneration, unspecified cervical region (ICD-10 - M50.30) 01/10/2024 Spondylosis of lumbar spine (ICD-10 - M47.816) 02/13/2024 Hyperlipidemia (ICD-10 - E78.5) 02/16/2024 Chronic pain syndrome (ICD-10 - G89.4) I had a nice discussion with the patient today regarding her chronic pain complaints. She states she continues to have a lot of neck and lower back pain and has finally got her MRI set up for February 22. Her medication is providing her with some relief so she will continue that at present level. She will return to clinic in 1 month to monitor for treatment effectiveness and compliance as well as for biannual appointment with Dr. Dos Santos. 02/16/2024 Other cervical disc degeneration, unspecified cervical region (ICD-10 - M50.30) 02/16/2024 Chronic pain syndrome (ICD-10 - G89.4) 03/01/2024 Chronic pain syndrome (ICD-10 - G89.4) 03/14/2024 Chronic pain syndrome (ICD-10 - G89.4) 03/14/2024 Hypertension (ICD-10 - I10) 01/19/2024 Chronic pain syndrome (ICD-10 - G89.4) 04/23/2024 Hypertension (ICD-10 - I10) 04/23/2024 Rheumatoid arthritis (ICD-10 - M06.9) Rheumatoid Arthritis (RA): Care Instructions material was published 02/13/2024 CHF (congestive heart failure) (ICD-10 - I50.9) 02/16/2024 Cervical radiculopathy (ICD-10 - M54.12) 01/10/2024 Hypertension (ICD-10 - I10) Low Sodium Diet (2,000 Milligram): Care Instructions material was published 01/19/2024 Cervical radiculopathy (ICD-10 - M54.12) 12/21/2023 Cervical radiculopathy (ICD-10 - M54.12) 12/12/2023 COPD (chronic obstructive pulmonary disease) (ICD-10 - J44.9) 12/20/2023 Encounter for immunization (ICD-10 - Z23) 11/10/2023 Hyperlipidemia (ICD-10 - E78.5) 11/07/2023 Bilateral leg edema (ICD-10 - R60.0) 11/01/2023 Need for RSV vaccination (ICD-10 - Z29.11) 10/17/2023 COPD (chronic obstructive pulmonary disease) (ICD-10 - J44.9) 10/18/2023 COPD (chronic obstructive pulmonary disease) (ICD-10 - J44.9) Patient would benefit from Remote Patient Monitoring of blood pressure, heart rate, pulse ox and weight. 10/14/2023 Hyperlipidemia (ICD-10 - E78.5) 10/12/2023 Hypertension (ICD-10 - I10) Stable, continue same. Diagnosis reconciliation performed and verified as listed in Assessments. 09/13/2023 Hyperlipidemia (ICD-10 - E78.5) 09/28/2023 Hypertension (ICD-10 - I10) 10/12/2023 Hyperlipidemia (ICD-10 - E78.5) Continue same. Diagnosis reconciliation performed and verified as listed in Assessments. 10/18/2023 Anxiety (ICD-10 - F41.9) 10/17/2023 CHF (congestive heart failure) (ICD-10 - I50.9) 12/20/2023 Immunization not carried out because of patient refusal (ICD-10 - Z28.21) 12/21/2023 Cervical spondylosis (ICD-10 - M47.812) 01/19/2024 Cervical spondylosis (ICD-10 - M47.812) 02/16/2024 Cervical spondylosis (ICD-10 - M47.812) 02/16/2024 Degeneration of intervertebral disc of lumbar region with discogenic back pain (ICD-10 - M51.360) 01/19/2024 Degeneration of intervertebral disc of lumbar region with discogenic back pain (ICD-10 - M51.360) 12/21/2023 L-S radiculopathy (ICD-10 - M54.17) 10/12/2023 Rheumatoid arthritis (ICD-10 - M06.9) Recheck in 3 weeks. Diagnosis reconciliation performed and verified as listed in Assessments. 10/18/2023 Depression (ICD-10 - F32.9) Patient would benefit from Remote Patient Monitoring of blood pressure, heart rate, pulse ox and weight. 10/12/2023 Depression (ICD-10 - F32.9) Recheck in 3 weeks. Diagnosis reconciliation performed and verified as listed in Assessments. 12/21/2023 Lumbosacral spondylosis (ICD-10 - M47.817) 01/19/2024 L-S radiculopathy (ICD-10 - M54.17) 02/16/2024 L-S radiculopathy (ICD-10 - M54.17) 02/16/2024 Lumbosacral spondylosis (ICD-10 - M47.817) 01/19/2024 Lumbosacral spondylosis (ICD-10 - M47.817) 12/21/2023 Greater trochanteric bursitis of right hip (ICD-10 - M70.61) 12/21/2023 Stage 3b chronic kidney disease (ICD-10 - N18.32) 02/16/2024 Trochanteric bursitis, right hip (ICD-10 - M70.61) 01/19/2024 Trochanteric bursitis, right hip (ICD-10 - M70.61) 02/16/2024 Chronic kidney disease, stage 3b (ICD-10 - N18.32) 01/19/2024 Chronic kidney disease, stage 3b (ICD-10 - N18.32) 12/21/2023 History of cancer of vulva (ICD-10 - Z85.44) 12/21/2023 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 Antwan Nassar, personally performed the services described in this documentatio n, as scribed by Nando Morel, and it is both accurate and complete. 09/13/2023 Other Chest Pain: Care Instructions material was published 11/10/2023 Other Cellulitis: Care Instructions material was published 02/13/2024 Other Learning About Low-Fat Eating material was published 03/14/2024 Other Heart-Healthy Diet: Care Instructions material was published, A Healthy Heart: Care Instructions material was published Plan Of Treatment Pending Test Test Name Order Date Prothrombin Time 32488 01/13/2022 ABORh 22019, 17595 01/13/2022 Antibody Screen 89493 01/13/2022 Basic Metabolic Panel (BMP) 79762 2021 Basic Metabolic Panel (BMP) 92749 2021 Basic Metabolic Panel (BMP) 41258 2021 Basic Metabolic Panel (BMP) 65052 2021 Basic Metabolic Panel (BMP) 72472 2021 CBC w\ Auto Diff 76117 01/30/2022 CBC w\ Auto Diff 10292 01/29/2022 CBC w\ Auto Diff 65463 01/13/2022 Partial Thromboplastin Time 83914 2021 CBC Reflex Man Diff 74498, 05977 022 CBC Reflex Man Diff 54601, 87719 022 Chest PA/Lat-20944 01/20/2022 Chest PA/Lat-40682 01/13/2022 Lumbosacral Spine AP/Lat-37196 2 Lumbosacral Spine AP/Lat-67887 2 Electrocardiogram 12 Lead Tracing-01735 01/13/2022 WBC Auto Diff--96622 01/25/2022 WBC Auto Diff--65668 01/26/2022 BB ABORH-73001,55267 01/20/2022 zzzFluoro >1h4 01/25/2022 zzzMRI Outside CD 09/02/2021 zzzMRI Outside CD 09/02/2021 Future Test Test Name Order Date MRI Cervical Spine w/o Cont-60506 2023 MRI Lumbar Spine w/o Cont-80992 01/26/20 zzzUrine Drug Screen (confirmation by in strument) - 40804 02/20/2024 Insurance Providers Payer Name Payer Address Payer Phone Subscriber Number Group Number Insured Name Patient Relationship to Insured Coverage Start Date Coverage End Date [place] [employer] [address] [address] [place] [address] [phone] [id number] JOANN ESCALANTE Self - patient is the insured [place] Medicaid [address] [place] [address] [id number] JOANN ESCALANTE Self - patient is the insured [employer] Replacement [address] [address] [place] [address] [id number] JOANN ESCALANTE Self - patient is the insured Medications Administered Medication Instructions Date of Administration Dosage Notes DEPO-Medrol 06/15/2023 40 mg [id number] 3-01 Patient tolerated well. dexAMETHasone 11/18/2022 8 mL [id number] 423-00 Patient tolertated well. dexAMETHasone 06/15/2023 4 mg [id number] 423-00 Patient tolerated well. Ketorolac Tromethamine 05/17/2023 60 mg nd [id number] Patient tolerated well. Medical (General) History Medical History History ICD Code Measles Mumps Chicken Pox Pneumonia Heart Disease Arthritis Anemia Vulva Cancer Hernia Back trouble HBP Hemmorhoids Bronchitis Bronchitis Anxiety Cataracts CHF COPD Depression Emphysema GERD Hyperlipidemia IBS Osteoporosis Sleep Apnea Ulcerative Colitis Diverticulitis Surgical History Surgery Date(Month/Year) Foot Sx Face Cysts Hernia Repair Partial Hysterectomy Vulva Cancer Throat Scrape bilateral foot surgery Cataract surgery Hysterectomy Nasal Stent Thoracotomy Toe nail removal Vocal cord surgery
--- NOTE | 2024-08-28 06:25 | XRR_ITS ---
PROCEDURE INFORMATION: Exam: XR Right Hip Exam date and time: 08/28/2024 6:38 AM Age: 73 years old Clinical indication: Injury or trauma; Fall; Blunt trauma (contusions or hematomas); Right; Hip; Additional info: Fall hip pain TECHNIQUE: Imaging protocol: Radiologic exam of the right hip. Views: 1 view hip with pelvis when performed. COMPARISON: CR XR hip RT 2-3V wo/w pel* [id number] 02/25/2022 8:34 AM FINDINGS: Bones/joints: Mildly angulated and overriding intertrochanteric fracture of the proximal right femur. Mild degenerative changes of the hip.. No acute fracture. Soft tissues: Unremarkable. XR/XR hip RT 2-3V wo/w pel* [id number] IMPRESSION: Intertrochanteric fracture.
[2024-08-28] MEDS: morphine 4 mg/mL SDV 1 mL IVP ×2 (06:30→08:54)
--- NOTE | 2024-08-28 06:35 | W.ED.SEIZURE ---
Documented by User: Anupam Romero, DO 08/31/24 19:48 HPI - Seizure General: Chief Complaint: ER Hold Stated Complaint: possible seizure Time Seen by Provider: 08/28/24 06:22 History of Present Illness: HPI Narrative: 73-year-old female presenting after seizure in the halfway. Evidently according to staff, she was standing, raised her hands, and then fell striking her head. She had convulsions following. She is complaining of right hip pain Related Data Home Medications ?Medication ?Instructions ?Recorded ?Confirmed pantoprazole 40 mg tablet,delayed 40 mg PO DAILY 03/06/24 08/28/24 release hydrocodone 5 mg-acetaminophen 325 1 tab PO Q8H PRN Pain 07/17/24 08/28/24 mg tablet furosemide 20 mg tablet (Lasix) 20 mg PO DAILY 08/20/24 08/28/24 loperamide 2 mg capsule See Rx Instructions .Route 08/20/24 08/28/24 .COMPLEX PRN loose stools potassium chloride 10 mEq 10 meq PO DAILY 08/20/24 08/28/24 capsule,extended release acetaminophen 325 mg tablet 650 mg PO BID pain 08/28/24 08/28/24 citalopram 10 mg tablet 10 mg PO DAILY 08/28/24 08/28/24 hydrocodone 5 mg-acetaminophen 325 2 tab PO BEDTIME Severe Pain 08/28/24 08/28/24 mg tablet (Scale Score 7-10) magnesium hydroxide 400 mg/5 mL 30 ml PO DAILY PRN Constipation 08/28/24 08/28/24 oral suspension (Milk of Magnesia) melatonin 1 mg tablet 1 mg PO BEDTIME 08/28/24 08/28/24 menthol 4 % topical gel (Biofreeze 1 applic topical BID 08/28/24 08/28/24 (menthol)) metoprolol tartrate 100 mg tablet 100 mg PO DAILY 08/28/24 08/28/24 [id number]- 250 mg-dha 90 1 cap PO QAM 08/28/24 08/28/24 mg-epa 160 dh-qjob-arem-zeax capsule (Ocuvite Adult 50 Plus) nystatin 100,000 unit/gram topical 1 applic topical PRN PRN Rash 08/28/24 08/28/24 cream ondansetron HCl 4 mg tablet 4 mg PO Q8H PRN Nausea And Vomiting 08/28/24 08/28/24 Previous Rx's ?Medication ?Instructions ?Recorded acetaminophen 500 mg tablet 500 mg PO Q6H PRN pain #90 tabs 03/10/22 (Tylenol Extra Strength) budesonide 160 mcg-glycopyr 9 2 inh inhalation BID #10.7 grams 02/15/23 mcg-formot 4.8 mcg/actuation HFA inhaler (Breztri Aerosphere) nitroglycerin 0.4 mg sublingual 0.4 mg sublingual Q5M PRN chest 09/06/23 tablet pain #30 tabs aspirin 81 mg tablet,delayed 81 mg PO DAILY #30 tabs 03/21/24 release enoxaparin 40 mg/0.4 mL 40 mg (0.4 mL) SUBCUT Q24H 21 days 08/31/24 subcutaneous syringe #8.4 mL Allergies Allergy/AdvReac Type Severity Reaction Status Date / Time metronidazole (From Flagyl) Allergy Intermediate Sores on Verified 08/20/24 10:43 legs lactose AdvReac Unknown Unknown Unverified 08/31/24 12:11 PFSH ED PFSH: Medical History Aortic valve disease Sacroiliac (ligament) sprain Bony pelvic pain Mixed stress and urge incontinence RLS (restless legs syndrome) History of cancer of vulva s/p excision and radiation therapy Lumbar spondylosis History of PFTs 05/2020: normal spirometry and lung volumes; isolated gas transfer suggestive of pulmonary vascular disease Bright red blood per rectum Altered mental state Arm and leg movements, uncontrollable Hypertension Anxiety about health GERD (gastroesophageal reflux disease) Osteoarthritis of both hands Atherosclerosis of coronary artery Seronegative rheumatoid arthritis of both hands Lumbar stenosis with neurogenic claudication Congestive heart failure Diastolic High risk medication use COPD (chronic obstructive pulmonary disease) Sleep apnea She chose not to treat with CPAP RLS (restless legs syndrome) DDD (degenerative disc disease) Chronic pain pain clinic in [facility] Tobacco abuse 2 ppd all of her adult life, 45 + years. Aortic regurgitation mild to moderate Surgical History History of cardiac catheterization 07/2020: moderate left main, stenosis, FFR 0.94, no hemodynamically significant History of colonoscopy 07/2021 History of appendectomy History of hernia repair History of colon surgery H/O: hysterectomy Total Hysterectomy in 1970 History of lung surgery H/O hemorrhoidectomy H/O cataract extraction S/P carpal tunnel release History of bilateral carpal tunnel release Family History Mother Diabetes Heart disease Hypertension Hyperchloremia Stroke Father Alcohol abuse Sister Dementia Stroke Social History Smoking and tobacco/nicotine status: former use of tobacco/nicotine Quit status (tobacco/nicotine): has tried quititng Alcohol intake: former Substance/Drug Use: never Caregiver/support person: Yes Lives independently: Yes Household members: none Marital status: Highest education level completed: GED or Equivalent service: No Current occupational status: retired and disabled Pets and animals: No Do you think of yourself as: Straight/Heterosexual Current gender identity: Female 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 Physical Exam Const: EXAM LIMITATIONS: altered mental status GENERAL APPEARANCE: cooperative, ill appearing and frail appearing ORIENTATION/CONSCIOUSNESS: Yes awake, Yes oriented to person and Yes confused; not oriented to place and not oriented to time HENMT: COMMON NORMALS: normocephalic, atraumatic, EAC's normal and Normal external nose present HEAD & SCALP: normocephalic and atraumatic NOSE: Normal external nose present EXTERNAL AUDITORY CANAL: EAC's normal MOUTH: tongue normal Neuro: SENSORIUM/ORIENTATION: Yes oriented to person, No oriented to place and No oriented to time Course Vital Signs: Vital signs: Vital Signs Temperature 98.2 F 08/31/24 12:22 Pulse Rate 99 08/31/24 12:22 Respiratory Rate 17 08/31/24 12:22 Blood Pressure 134/65 08/31/24 12:22 Pulse Oximetry 91 08/31/24 12:22 Oxygen Delivery Me thod Nasal Cannula 08/31/24 08:22 Oxygen Flow Rate 2 08/31/24 04:00 MDM - Seizure Lab Data 08/31/24 04:38 08/31/24 04:38 Labs: Radiology Impressions Head CT 08/28/24 08:07 IMPRESSION: 1. No acute intracranial hemorrhage or edema. 2. Numerous bilateral areas of decreased attenuation correspond to prior acute infarcts described on 03/18/2024. 3. Superimposed additional small vessel disease and a few small lacunar infarcts. Femur X-Ray 08/28/24 08:57 IMPRESSION: Comminuted intertrochanteric fracture right hip. Knee X-Ray 08/28/24 08:57 IMPRESSION: 1. Medial collateral ligament injury. 2. Degenerative changes of the joint space Hip/Pelvis X-Ray 08/29/24 12:28 IMPRESSION: Status post interval open reduction and internal fixation of the previously seen comminuted and displaced intertrochanteric fracture. Interval placement of a short intramedullary dominick and dynamic screw. The alignment is significantly improved. Displaced avulsion fracture of the lesser trochanter persists. Chest X-Ray 08/29/24 14:25 Impression: Atherosclerosis. Laboratory Results WBC 13.90 10^3/uL (3.29-11.43) H 08/28/24 06:00 RBC 3.63 10^6/uL (3.85-5.65) L 08/28/24 06:00 Hgb 9.00 g/dL (11.27-16.99) L 08/28/24 06:00 Hct 31.7 % (36-47) L 08/28/24 06:00 MCV 87.3 fl (85-98) 08/28/24 06:00 MCH 24.8 pg (27-33) L 08/28/24 06:00 MCHC 28.4 g/dL (30-55) L 08/28/24 06:00 RDW 16.2 % (12.1-15.1) H 08/28/24 06:00 Plt Count 423 10^3/cmm (157-399) H 08/28/24 06:00 MPV 9.5 fL (7.4-10.4) 08/28/24 06:00 Neut % (Auto) 57.2 % 08/28/24 06:00 Lymph % (Auto) 30.6 % 08/28/24 06:00 Crook % (Auto) 9.3 % 08/28/24 06:00 Eos % (Auto) 1.9 % 08/28/24 06:00 Baso % (Auto) 0.6 % 08/28/24 06:00 Neut # (Auto) 7.96 10^3/uL (1.8-7.7) H 08/28/24 06:00 Lymph # (Auto) 4.3 10^3/uL (0.8-4.8) 08/28/24 06:00 Crook # (Auto) 1.3 10^3/uL (0.2-0.9) H 08/28/24 06:00 Eos # (Auto) 0.3 10^3/uL (0.0-0.8) 08/28/24 06:00 Baso # (Auto) 0.1 10^3/uL (0.0-0.1) 08/28/24 06:00 Nucleated RBC % (auto) 0 % 08/28/24 06:00 Nucleated RBCs # 0.0 /100WBC 08/28/24 06:00 Sodium 137 mmol/L (136-145) 08/28/24 06:00 Potassium 4.9 mmol/L (3.5-5.1) 08/28/24 06:00 Chloride 99 mmol/L (98-107) 08/28/24 06:00 Carbon Dioxide 15 mmol/L (22-29) L 08/28/24 06:00 Anion Gap 27.9 (5-19) H 08/28/24 06:00 BUN 17 mg/dL (8-23) 08/28/24 06:00 Creatinine 0.7 mg/dL (0.5-0.9) 08/28/24 06:00 GFR Calculation Not Reportable 08/28/24 06:00 Glucose 199 mg/dL (65-115) H 08/28/24 06:00 Calculated Osmolality 291 mOsm/kg (285-295) 08/28/24 06:00 Calcium 9.2 mg/dL (8.5-10.5) 08/28/24 06:00 Magnesium 2.3 mg/dL (1.7-2.3) 08/28/24 06:00 Total Bilirubin 0.2 mg/dL (0.15-1.2) 08/28/24 06:00 AST 14 U/L (0-32) 08/28/24 06:00 ALT 8 U/L (0-33) 08/28/24 06:00 Alkaline Phosphatase 102 U/L (35-105) 08/28/24 06:00 Total Protein 7.5 g/dL (6.6-8.7) 08/28/24 06:00 Albumin 3.8 g/dL (3.5-5.2) 08/28/24 06:00 Globulin 3.7 g/dL (1.3-4.6) 08/28/24 06:00 Discharge Plan Discharge Patient Disposition: Admitted As Inpatient Admit Provider: Mike Wan Clinical Impression: Fracture of right hip, Leukocytosis, Fall Condition: Stable Discharge Diet: Cardiac Discharge Activity: Limit activity as instructed, Use walker/crutches as instructed and As per PT/OT instructions Sign Out Sign Out Data: Patient Sign Out occurred on 08/28/24 at 08:09. Patient's care was discussed, and care was transferred from Anupam Romero DO to Jose Luis Coley DO. Coding Level of Care Code ED Java Web Architect for Chg Fwd Documented by User: Jose Luis Coley DO 08/28/24 13:36 HPI - Seizure General: Chief Complaint: ER Hold Stated Complaint: possible seizure Time Seen by Provider: 08/28/24 06:22 Related Data Home Medications ?Medication ?Instructions ?Recorded ?Confirmed pantoprazole 40 mg tablet,delayed 40 mg PO DAILY 03/06/24 08/28/24 release hydrocodone 5 mg-acetaminophen 325 1 tab PO Q8H PRN Pain 07/17/24 08/28/24 mg tablet furosemide 20 mg tablet (Lasix) 20 mg PO DAILY 08/20/24 08/28/24 loperamide 2 mg capsule See Rx Instructions .Route 08/20/24 08/28/24 .COMPLEX PRN loose stools potassium chloride 10 mEq 10 meq PO DAILY 08/20/24 08/28/24 capsule,extended release acetaminophen 325 mg tablet 650 mg PO BID pain 08/28/24 08/28/24 citalopram 10 mg tablet 10 mg PO DAILY 08/28/24 08/28/24 hydrocodone 5 mg-acetaminophen 325 2 tab PO BEDTIME Severe Pain 08/28/24 08/28/24 mg tablet (Scale Score 7-10) magnesium hydroxide 400 mg/5 mL 30 ml PO DAILY PRN Constipation 08/28/24 08/28/24 oral suspension (Milk of Magnesia) melatonin 1 mg tablet 1 mg PO BEDTIME 08/28/24 08/28/24 menthol 4 % topical gel (Biofreeze 1 applic topical BID 08/28/24 08/28/24 (menthol)) metoprolol tartrate 100 mg tablet 100 mg PO DAILY 08/28/24 08/28/24 cxjtqjiv-cet- 250 mg-dha 90 1 cap PO QAM 08/28/24 08/28/24 mg-epa 160 tr-etzj-txzm-zeax capsule (Ocuvite Adult 50 Plus) nystatin 100,000 unit/gram topical 1 applic topical PRN PRN Rash 08/28/24 08/28/24 cream ondansetron HCl 4 mg tablet 4 mg PO Q8H PRN Nausea And Vomiting 08/28/24 08/28/24 Previous Rx's ?Medication ?Instructions ?Recorded acetaminophen 500 mg tablet 500 mg PO Q6H PRN pain #90 tabs 03/10/22 (Tylenol Extra Strength) budesonide 160 mcg-glycopyr 9 2 inh inhalation BID #10.7 grams 02/15/23 mcg-formot 4.8 mcg/actuation HFA inhaler (Breztri Aerosphere) nitroglycerin 0.4 mg sublingual 0.4 mg sublingual Q5M PRN chest 09/06/23 tablet pain #30 tabs aspirin 81 mg tablet,delayed 81 mg PO DAILY #30 tabs 03/21/24 release enoxaparin 40 mg/0.4 mL 40 mg (0.4 mL) SUBCUT Q24H 21 days 08/31/24 subcutaneous syringe #8.4 mL Allergies Allergy/AdvReac Type Severity Reaction Status Date / Time metronidazole (From Flagyl) Allergy Intermediate Sores on Verified 08/20/24 10:43 legs lactose AdvReac Unknown Unknown Unverified 08/31/24 12:11 Review of Systems Musc: Reports: joint pain PFSH ED PFSH: Medical History Aortic valve disease Sacroiliac (ligament) sprain Bony pelvic pain Mixed stress and urge incontinence RLS (restless legs syndrome) History of cancer of vulva s/p excision and radiation therapy Lumbar spondylosis History of PFTs 05/2020: normal spirometry and lung volumes; isolated gas transfer suggestive of pulmonary vascular disease Bright red blood per rectum Altered mental state Arm and leg movements, uncontrollable Hypertension Anxiety about health GERD (gastroesophageal reflux disease) Osteoarthritis of both hands Atherosclerosis of coronary artery Seronegative rheumatoid arthritis of both hands Lumbar stenosis with neurogenic claudication Congestive heart failure Diastolic High risk medication use COPD (chronic obstructive pulmonary disease) Sleep apnea She chose not to treat with CPAP RLS (restless legs syndrome) DDD (degenerative disc disease) Chronic pain pain clinic in [facility] Tobacco abuse 2 ppd all of her adult life, 45 + years. Aortic regurgitation mild to moderate Surgical History History of cardiac catheterization 07/2020: moderate left main, stenosis, FFR 0.94, no hemodynamically significant History of colonoscopy 07/2021 History of appendectomy History of hernia repair History of colon surgery H/O: hysterectomy Total Hysterectomy in 1969 History of lung surgery H/O hemorrhoidectomy H/O cataract extraction S/P carpal tunnel release History of bilateral carpal tunnel release Family History Mother Diabetes Heart disease Hypertension Hyperchloremia Stroke Father Alcohol abuse Sister Dementia Stroke Social History Smoking and tobacco/nicotine status: former use of tobacco/nicotine Quit status (tobacco/nicotine): has tried quititng Alcohol intake: former Substance/Drug Use: never Caregiver/support person: Yes Lives independently: Yes Household members: none Marital status: Highest education level completed: GED or Equivalent service: No Current occupational status: retired and disabled Pets and animals: No Do you think of yourself as: Straight/Heterosexual Current gender identity: Female 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 Physical Exam Resp: COMMON NORMALS: normal respiratory effort, No retractions, No use of accessory muscles and clear to auscultation bilaterally AUSCULTATION: clear to auscultation bilaterally Cardio: COMMON NORMALS: regular rate, regular rhythm and No murmurs present (Cardio) RATE: regular rate RHYTHM: regular rhythm GI: COMMON NORMALS: Soft to palpation and No hepatosplenomegaly present AUSCULTATION: Yes normoactive bowel sounds PALPATION: Yes Soft to palpation, No Tenderness to palpation present (GI), No Guarding due to palpation present (GI) and Yes No hepatosplenomegaly present Extremity: COMMON NORMALS: normal to inspection, capillary refill normal, no clubbing, cyanosis or edema, no calf tenderness and no pedal edema Skin: COMMON NORMALS: no rashes or lesions noted GENERAL SKIN EXAM: no rashes or lesions noted Course Vital Signs: Vital signs: Vital Signs Temperature 98.2 F 08/31/24 12:22 Pulse Rate 99 08/31/24 12:22 Respiratory Rate 17 08/31/24 12:22 Blood Pressure 134/65 08/31/24 12:22 Pulse Oximetry 91 08/31/24 12:22 Oxygen Delivery Me thod Nasal Cannula 08/31/24 08:22 Oxygen Flow Rate 2 08/31/24 04:00 MDM - Seizure MDM Narrative Medical decision making narrative: Care assumed at change of shift. Patient has a right comminuted hip fracture intertrochanteric. No other fractures noted. CT of the head negative. She does have a low-grade fever mild leukocytosis no signs of cystitis. She has no meningeal signs. Chest x-ray is clear. Will admit the patient discussed with the hospitalist and they will do further workup regarding the fever. Defect to Dr. Macdonald they are planning on surgery tomorrow unless there is a medical condition found that would prevent this. Lab Data 08/31/24 04:38 08/31/24 04:38 Labs: Radiology Impressions Head CT 08/28/24 08:07 IMPRESSION: 1. No acute intracranial hemorrhage or edema. 2. Numerous bilateral areas of decreased attenuation correspond to prior acute infarcts described on 03/18/2024. 3. Superimposed additional small vessel disease and a few small lacunar infarcts. Femur X-Ray 08/28/24 08:57 IMPRESSION: Comminuted intertrochanteric fracture right hip. Knee X-Ray 08/28/24 08:57 IMPRESSION: 1. Medial collateral ligament injury. 2. Degenerative changes of the joint space Hip/Pelvis X-Ray 08/29/24 12:28 IMPRESSION: Status post interval open reduction and internal fixation of the previously seen comminuted and displaced intertrochanteric fracture. Interval placement of a short intramedullary dominick and dynamic screw. The alignment is significantly improved. Displaced avulsion fracture of the lesser trochanter persists. Chest X-Ray 08/29/24 14:25 Impression: Atherosclerosis. Laboratory Results WBC 13.90 10^3/uL (3.29-11.43) H 08/28/24 06:00 RBC 3.63 10^6/uL (3.85-5.65) L 08/28/24 06:00 Hgb 9.00 g/dL (11.27-16.99) L 08/28/24 06:00 Hct 31.7 % (36-47) L 08/28/24 06:00 MCV 87.3 fl (85-98) 08/28/24 06:00 MCH 24.8 pg (27-33) L 08/28/24 06:00 MCHC 28.4 g/dL (30-55) L 08/28/24 06:00 RDW 16.2 % (12.1-15.1) H 08/28/24 06:00 Plt Count 423 10^3/cmm (157-399) H 08/28/24 06:00 MPV 9.5 fL (7.4-10.4) 08/28/24 06:00 Neut % (Auto) 57.2 % 08/28/24 06:00 Lymph % (Auto) 30.6 % 08/28/24 06:00 Crook % (Auto) 9.3 % 08/28/24 06:00 Eos % (Auto) 1.9 % 08/28/24 06:00 Baso % (Auto) 0.6 % 08/28/24 06:00 Neut # (Auto) 7.96 10^3/uL (1.8-7.7) H 08/28/24 06:00 Lymph # (Auto) 4.3 10^3/uL (0.8-4.8) 08/28/24 06:00 Crook # (Auto) 1.3 10^3/uL (0.2-0.9) H 08/28/24 06:00 Eos # (Auto) 0.3 10^3/uL (0.0-0.8) 08/28/24 06:00 Baso # (Auto) 0.1 10^3/uL (0.0-0.1) 08/28/24 06:00 Nucleated RBC % (auto) 0 % 08/28/24 06:00 Nucleated RBCs # 0.0 /100WBC 08/28/24 06:00 Sodium 137 mmol/L (136-145) 08/28/24 06:00 Potassium 4.9 mmol/L (3.5-5.1) 08/28/24 06:00 Chloride 99 mmol/L (98-107) 08/28/24 06:00 Carbon Dioxide 15 mmol/L (22-29) L 08/28/24 06:00 Anion Gap 27.9 (5-19) H 08/28/24 06:00 BUN 17 mg/dL (8-23) 08/28/24 06:00 Creatinine 0.7 mg/dL (0.5-0.9) 08/28/24 06:00 GFR Calculation Not Reportable 08/28/24 06:00 Glucose 199 mg/dL (65-115) H 08/28/24 06:00 Calculated Osmolality 291 mOsm/kg (285-295) 08/28/24 06:00 Calcium 9.2 mg/dL (8.5-10.5) 08/28/24 06:00 Magnesium 2.3 mg/dL (1.7-2.3) 08/28/24 06:00 Total Bilirubin 0.2 mg/dL (0.15-1.2) 08/28/24 06:00 AST 14 U/L (0-32) 08/28/24 06:00 ALT 8 U/L (0-33) 08/28/24 06:00 Alkaline Phosphatase 102 U/L (35-105) 08/28/24 06:00 Total Protein 7.5 g/dL (6.6-8.7) 08/28/24 06:00 Albumin 3.8 g/dL (3.5-5.2) 08/28/24 06:00 Globulin 3.7 g/dL (1.3-4.6) 08/28/24 06:00 All radiology interpretation(s) finalized by discharge EKG Data EKG 1: Interpretation: EKG 722 2024-12-[address] changes. No acute changes. Unchanged from 03/13/2024. Rate 94 MO interval 151 QTc 443 Discharge Plan Discharge Patient Disposition: Admitted As Inpatient Admit Provider: Mike Wan Clinical Impression: Fracture of right hip, Leukocytosis, Fall Condition: Stable Discharge Diet: Cardiac Discharge Activity: Limit activity as instructed, Use walker/crutches as instructed and As per PT/OT instructions Sign Out Sign Out Data: Patient Sign Out occurred on 08/28/24 at 08:09. Patient's care was discussed, and care was transferred from Anupam Romero DO to Jose Luis Coley DO. Coding Level of Care Code ED Java Web Architect for Tracy Medrano
--- NOTE | 2024-08-28 07:18 | PC.PHAR ---
Addendum entered by Joyce Cooper 08/28/24 07:35: Pt has 4 orders with tylenol in them. Original Note: Pt is from [facility]
--- NOTE | 2024-08-28 08:07 | CT_ITS ---
WS: [id number] CT HEAD NONCONTRAST HISTORY: Seizure TECHNIQUE: Contiguous axial imaging performed through the brain. Bone and soft tissue windows. Sagittal and coronal reformats reviewed. All CT scans at [facility] use at least one of these dose optimization techniques: automated exposure control; mA and/or kV adjustment per patient size (includes targeted exams where dose is matched to clinical indication); or iterative reconstruction. DLP: 1073.84 mGy.cm COMPARISON: 03/13/2024, MRI 03/18/2024 No acute intracranial hemorrhage, midline shift or mass effect. Moderate bilateral atrophy. Bilateral infarcts and small vessel disease with significant progression since the CT of 03/13/2024. MRI from 03/18/2024 demonstrated bilateral acute infarcts. Encephalomalacia is now noted in the periventricular white matter and extending into the occipital lobes, LEFT greater than RIGHT. These areas of decreased attenuation correspond to the areas of prior infarction. Ventricles: Normal size with no hydrocephalus. No inferior displacement of the cerebellar tonsils. Paranasal sinuses: As visualized are clear. Mastoid air cells: Well pneumatized. Calvarium and scalp: Skull is intact with no soft tissue edema or swelling. CT/CT head wo con* [id number] IMPRESSION: 1. No acute intracranial hemorrhage or edema. 2. Numerous bilateral areas of decreased attenuation correspond to prior acute infarcts described on 03/18/2024. 3. Superimposed additional small vessel disease and a few small lacunar infarc ts.
[2024-08-28 08:15] LABS: Hematocrit 31.7 % (36-47); Hemoglobin 9.00 g/dL (11.27-16.99); Mean Corpuscular HGB Conc 28.4 g/dL (30-55); Mean Corpuscular Hemoglobin 24.8 pg (27-33); Mean Corpuscular Volume 87.3 fl (85-98); Nucleated Red Blood Cells % 0 %; Platelet Count 423 10^3/cmm (157-399); Red Blood Count 3.63 10^6/uL (3.85-5.65); White Blood Count 13.90 10^3/uL (3.29-11.43)
[2024-08-28 08:34] LABS: Alanine Aminotransferase 8 U/L (0-33); Albumin Level 3.8 g/dL (3.5-5.2); Alkaline Phosphatase 102 U/L (35-105); Anion Gap 27.9 (5-19); Aspartate Amino Transferase 14 U/L (0-32); Blood Urea Nitrogen 17 mg/dL (8-23); Calcium 9.2 mg/dL (8.5-10.5); Carbon Dioxide 15 mmol/L (22-29); Chloride 99 mmol/L (98-107); Creatinine Clr Calc Pharmacy 56.3312; Globulin 3.7 g/dL (1.3-4.6); Glucose 199 mg/dL (65-115); Magnesium 2.3 mg/dL (1.7-2.3); Osmolality Calculated 291 mOsm/kg (285-295); Potassium 4.9 mmol/L (3.5-5.1); Sodium 137 mmol/L (136-145); Total Protein 7.5 g/dL (6.6-8.7)
--- NOTE | 2024-08-28 08:42 | XRR_ITS ---
PROCEDURE INFORMATION: Exam: XR Chest Exam date and time: 08/28/2024 8:44 AM Age: 73 years old Clinical indication: Pre-operative exam; Cardiovascular screening and respiratory screening exam; Additional info: Preop hip fracture TECHNIQUE: Imaging protocol: Radiologic exam of the chest. Views: 1 view. COMPARISON: CR XR chest 1V portable [id number] 03/21/2024 1:45 PM FINDINGS: Lungs: The lungs are clear. Pleural spaces: Chronic blunting of the left costophrenic angle due to pericardial fat. Heart/Mediastinum: See Vasculature finding. Vasculature: Atherosclerotic changes of the aorta are present. Heart size is in the upper limits of normal and is stable. Bones/joints: Bony structures appear osteopenic without acute abnormality. XR/XR chest 1V portable [id number] IMPRESSION: Stable findings. No acute abnormality.
--- NOTE | 2024-08-28 08:42 | ECG_ITS ---
[facility] Surgical Test Date: 2024-08-28 Pat Name: Tatiana Alvarez Department: Room: EDIP Gender: Female Network Support Administrator: : [id number] Requested By: Jose Luis Burgos Order Number: [id number] Shayy MD: Marquis Strickland M.D. Measurements Intervals [place] Rate: 94 P: 66 NM: 151 QRS: 50 QRSD: 89 T: 69 QT: 354 QTc: 443 Interpretive Statements SINUS RHYTHM POSSIBLE LEFT ATRIAL ENLARGEMENT [-0.1mV P-WAVE IN V1/V2] NONSPECIFIC T-WAVE ABNORMALITY Compared to ECG 03/13/2024 20:08:09 No significant changes Electronically Signed On 08-30-2024 09:05:10 CDT by Marquis Strickland M.D. [email or web address]
--- NOTE | 2024-08-28 08:57 | XRR_ITS ---
PROCEDURE INFORMATION: Exam: XR Right Knee Exam date and time: 08/28/2024 9:01 AM Age: 73 years old Clinical indication: Injury or trauma; Fall; Blunt trauma; Knee; Right TECHNIQUE: Imaging protocol: Radiologic exam of the right knee. Views: 3 views. COMPARISON: CR XR foot RT min 3V* [id number] 08/07/2019 11:05 AM FINDINGS: Bones/joints: The bones are well mineralized. There is medial compartment narrowing. Spurring of the tibial spines is present. There is a linear bony fragment along the medial femoral condyle. This is consistent with a Kevin-Stieda lesion indicating chronic dystrophic calcification of the MCL from previous tear. Soft tissues: Normal. Vasculature: Atherosclerotic changes of the vessels is noted. Other findings: No effusion. XR/XR knee RT 3V* [id number] IMPRESSION: 1. Medial collateral ligament injury. 2. Degenerative changes of the joint space
--- NOTE | 2024-08-28 08:57 | XRR_ITS ---
PROCEDURE INFORMATION: Exam: XR Right Femur Exam date and time: 08/28/2024 9:02 AM Age: 73 years old Clinical indication: Injury or trauma; Fall; Blunt trauma; Thigh or upper leg; Right TECHNIQUE: Imaging protocol: Radiologic exam of the right femur. Views: 2 views. COMPARISON: CR XR knee RT 3V* [id number] 08/28/2024 9:01 AM FINDINGS: Bones/joints: There is an acute comminuted intertrochanteric fracture. There is superior subluxation of the distal fragment. No dislocation of the hip. Linear bony fragment along the medial femoral condyle is also noted consistent with MCL tear. No other fractures are identified. Surgical screw is present within the right iliac wing. Soft tissues: Unremarkable. Vasculature: There is atherosclerotic changes of the vessels. XR/XR femur RT min 2V* [id number] IMPRESSION: Comminuted intertrochanteric fracture right hip.
[2024-08-28 09:55] LABS: Glucose Urine UA Negative (Normal); Nitrate Urine Negative (Negative); Specific Gravity, Urine 1.019 (1.005-1.030)
[2024-08-28 09:59] LABS: Add Urine Microscopic? YES
[2024-08-28] MEDS: morphine 4 mg/mL SDV 1 mL 2 MG IVP ×5 (10:22→22:38)
--- NOTE | 2024-08-28 11:11 | PM.HP ---
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 She was brought from her group home to the ED after collapsing while ambulating; staff reported she raised her hands, attempted to speak, then fell, striking her head and exhibiting convulsions. The patient does not recall the event. On arrival she complained primarily of right hip pain. She reports recent muscle aches, runny nose, sore throat, and earlier nausea but denies current headache (later developed mild head pain), chest pain, cough, or diarrhea. Review of ED vitals showed BP 135/112 mmHg, HR 116 bpm, RR 22, temp 100.6 ?F, SpO? 94% on room air. CT head revealed no acute hemorrhage; right hip radiographs demonstrated a comminuted intertrochanteric fracture. Labs notable for WBC 13.9 K/?L, Hgb 9 g/dL, platelets 423 K/?L, glucose 199 mg/dL; chemistries and liver/renal panels otherwise unremarkable. The patient is confused at times but generally alert and oriented and no longer appears confused during my visit, she was pulling at lines during transport. Orthopedic surgery has been consulted; hip repair is anticipated tomorrow. She is aware of surgical risks given her cardiac disease and pulmonary comorbidities. Plans include viral swabs for her low-grade fever, pain control with Tylenol and stronger analgesics as needed, and possible neurology follow-up for first-time seizure. Review of Systems Const: Reports: body aches and malaise; Denies: fever(s) or chills ENMT: Reports: throat pain Card: Denies: chest pain, edema, pre-syncope or dyspnea on exertion Resp: Denies: dyspnea, productive cough, change in phlegm color or hemoptysis GI: Denies: abdominal pain, nausea, vomiting, diarrhea, constipation, hematochezia or melena : Denies: flank pain, urinary frequency or hematuria Musc: Reports: joint pain (R hip); Denies: back pain, joint swelling or joint redness Skin/Breast: Denies: rash or new lesions Neuro: Reports: headache(s) and other (possible seizure, fall); Denies: confusion Medications/Allergies Home Medications ?Medication ?Instructions ?Recorded ?Confirmed ?Last Taken ?Type acetaminophen 500 mg tablet 500 mg PO Q6H PRN pain #90 tabs 03/10/22 08/28/24 08/20/24 Rx (Tylenol Extra Strength) budesonide 160 mcg-glycopyr 9 2 inh inhalation BID #10.7 grams 02/15/23 08/28/24 08/27/24 Rx mcg-formot 4.8 mcg/actuation HFA inhaler (Breztri Aerosphere) nitroglycerin 0.4 mg sublingual 0.4 mg sublingual Q5M PRN chest 09/06/23 08/28/24 03/06/24 Rx tablet pain #30 tabs pantoprazole 40 mg tablet,delayed 40 mg PO DAILY 03/06/24 08/28/24 08/27/24 History release aspirin 81 mg tablet,delayed 81 mg PO DAILY #30 tabs 03/21/24 08/28/24 08/27/24 Rx release hydrocodone 5 mg-acetaminophen 325 1 tab PO Q8H PRN Pain 07/17/24 08/28/24 08/28/24 History mg tablet furosemide 20 mg tablet (Lasix) 20 mg PO DAILY 08/20/24 08/28/24 08/27/24 History loperamide 2 mg capsule See Rx Instructions .Route 08/20/24 08/28/24 08/22/24 History .COMPLEX PRN loose stools potassium chloride 10 mEq 10 meq PO DAILY 08/20/24 08/28/24 08/27/24 History capsule,extended release acetaminophen 325 mg tablet 650 mg PO BID pain 08/28/24 08/28/24 08/27/24 History citalopram 10 mg tablet 10 mg PO DAILY 08/28/24 08/28/24 08/27/24 History hydrocodone 5 mg-acetaminophen 325 2 tab PO BEDTIME Severe Pain 08/28/24 08/28/24 08/27/24 History mg tablet (Scale Score 7-10) magnesium hydroxide 400 mg/5 mL 30 ml PO DAILY PRN Constipation 08/28/24 08/28/24 Unknown History oral suspension (Milk of Magnesia) melatonin 1 mg tablet 1 mg PO BEDTIME 08/28/24 08/28/24 08/27/24 History menthol 4 % topical gel (Biofreeze 1 applic topical BID 08/28/24 08/28/24 08/27/24 History (menthol)) metoprolol tartrate 100 mg tablet 100 mg PO DAILY 08/28/24 08/28/24 08/27/24 History [id number] 250 mg-dha 90 1 cap PO QAM 08/28/24 08/28/24 08/27/24 History mg-epa 160 [id number] capsule (Ocuvite Adult 50 Plus) nystatin 100,000 unit/gram topical 1 applic topical PRN PRN Rash 08/28/24 08/28/24 08/06/24 History cream ondansetron HCl 4 mg tablet 4 mg PO Q8H PRN Nausea And Vomiting 08/28/24 08/28/24 08/07/24 History Allergies Allergy/AdvReac Type Severity Reaction Status Date / Time metronidazole (From Flagyl) Allergy Intermediate Sores on Verified 08/20/24 10:43 legs PFSH Acute PFSH: Medical History Aortic valve disease Sacroiliac (ligament) sprain Bony pelvic pain Mixed stress and urge incontinence RLS (restless legs syndrome) History of cancer of vulva s/p excision and radiation therapy Lumbar spondylosis History of PFTs 05/2020: normal spirometry and lung volumes; isolated gas transfer suggestive of pulmonary vascular disease Bright red blood per rectum Altered mental state Arm and leg movements, uncontrollable Hypertension Anxiety about health GERD (gastroesophageal reflux disease) Osteoarthritis of both hands Atherosclerosis of coronary artery Seronegative rheumatoid arthritis of both hands Lumbar stenosis with neurogenic claudication Congestive heart failure Diastolic High risk medication use COPD (chronic obstructive pulmonary disease) Sleep apnea She chose not to treat with CPAP RLS (restless legs syndrome) DDD (degenerative disc disease) Chronic pain pain clinic in [facility] Tobacco abuse 2 ppd all of her adult life, 45 + years. Aortic regurgitation mild to moderate Surgical History History of cardiac catheterization 07/2020: moderate left main, stenosis, FFR 0.94, no hemodynamically significant History of colonoscopy 07/2021 History of appendectomy History of hernia repair History of colon surgery H/O: hysterectomy Total Hysterectomy in 1970 History of lung surgery H/O hemorrhoidectomy H/O cataract extraction S/P carpal tunnel release History of bilateral carpal tunnel release Family History Mother Diabetes Heart disease Hypertension Hyperchloremia Stroke Father Alcohol abuse Sister Dementia Stroke Social History Smoking and tobacco/nicotine status: former use of tobacco/nicotine Quit status (tobacco/nicotine): has tried quititng Alcohol intake: former Substance/Drug Use: never Caregiver/support person: Yes Lives independently: Yes Household members: none Marital status: Highest education level completed: GED or Equivalent service: No Current occupational status: retired and disabled Pets and animals: No Do you think of yourself as: Straight/Heterosexual Current gender identity: Female Brenda/Mosque: [employer] Vitals/I&O/Wt Last Vital Signs Temp 100.6 F H 08/28/24 06:06 Pulse 99 08/28/24 11:00 Resp 18 08/28/24 11:00 BP 102/65 08/28/24 11:00 Pulse Ox 95 08/28/24 11:00 O2 Del Method Nasal Cannula 08/28/24 11:00 O2 Flow Rate 2 08/28/24 11:00 08/27/24 08/28/24 08/28/24 22:59 06:59 14:59 Output Total 300 / 300 Balance -300 / -300 Weight last 48 hrs Weight 71.668 kg Physical Exam Narrative: Visited by son during the interview Const: COMMON NORMALS: patient oriented x3 and alert GENERAL APPEARANCE: cooperative ORIENTATION/CONSCIOUSNESS: Yes awake HENMT: COMMON NORMALS: oropharynx normal Neck/C-Spine: COMMON NORMALS: no JVD Resp: COMMON NORMALS: normal respiratory effort and clear to auscultation bilaterally AUSCULTATION: clear to auscultation bilaterally Cardio: COMMON NORMALS: no JVD, regular rhythm, S1 normal heart sound present, S2 normal heart sound present and No murmurs present (Cardio) RHYTHM: regular rhythm HEART SOUNDS: S1 normal heart sound present and S2 normal heart sound present GI: COMMON NORMALS: Normal to inspection, nondistended, normoactive bowel sounds present, Soft to palpation and non-tender PALPATION: Yes Soft to palpation Extremity: COMMON NORMALS: no joint enlargement and no pedal edema NARRATIVE EXTREMITY EXAM: Right hip without swelling, bruising, redness. Neuro: COMMON NORMALS: patient oriented x3 and moves all extremities SENSORIUM/ORIENTATION: Yes alert Skin: COMMON NORMALS: no rashes or lesions noted GENERAL SKIN EXAM: no rashes or lesions noted Urinary Catheter Management: Ramirez: Cath Placed During This Visit: yes Urinary Catheter Date of Insertion: 08/28/24 Urinary Catheter Time of Insertion: 09:50 Data 08/28/24 06:00 08/28/24 06:00 A&P Assessment and plan 1. Fracture of right hip: Right intertrochanteric comminuted hip fracture : Imaging confirms comminuted intertrochanteric fracture of the right hip sustained during fall. Reviewed vitals, CBC, CMP, magnesium, head CT, hip/pelvis x-ray, femur x-ray, knee and chest x-ray, head CT, ED provider note, discussed with ED provider. Discussed with her and her son increased risk associated with surgery including her age, as well as underlying comorbidities with heart failure, valvular heart disease, lung disease with COPD, SARAH, additional comorbidities. Currently does not appear to have active disease that should hold back surgery given risks of delayed repair. Discussed her medical history and presentation with anesthesia. EKG reviewed noted with sinus rhythm, nonspecific T wave changes. - Orthopedic surgery consulted; plan for operative fixation tomorrow. - Continue IV fluids per ED orders. Monitor for risk of fluid overload with history of CHF. Decrease fluid rate to 30 mL/h. - Acetaminophen, hydrocodone for pain. IV morphine ordered for severe breakthrough pain. - Provide analgesia: Tylenol and opioid ([place]) per pain control protocol. - Post-op disposition likely return to nursing facility once stable. 2. Fever: Low-grade fever ? possible viral infection : Temp 100.6 ?F with myalgias, runny nose, sore throat; CXR and UA without clear infectious source. Without meningeal signs, always having headache after head injury. Brudzinski negative. No evidence of herpes labialis at this time. Without other evidence of integumentary ,urinary GI or other infection. With some malaise, sore throat, body aches, low-grade fever, possible viral infection. - Obtain respiratory viral panel (swabs ordered). - Monitor vitals and WBC trend; no antibiotics unless new evidence of bacterial infection. - Supportive care with antipyretics as needed. 3. Seizure: New-onset seizure/head injury : Witnessed convulsive episode at time of fall; first documented seizure; head CT negative for acute bleed; history of multiple chronic infarcts noted on recent MRI that was just done in March, reviewed. - No anticonvulsant initiated after single event. MRI has already been recently obtained. - Monitor for recurrent seizures or neurological changes while inpatient. Seizure precautions. - Arrange outpatient neurology follow-up after discharge. Plan: Diastolic CHF: Not currently in exacerbation Mild aortic regurgitation: Reviewed prior echocardiogram SARAH: Does not wear CPAP at night, cannot tolerate it COPD: Not currently in exacerbation. Is receiving 2 L nasal oxygen. Requested oxygen therapy protocol, avoid hyperoxia, target O2 saturation 88-92%. Seronegative rheumatoid arthritis RLS DDD HTN: Monitor blood pressures. Continue metoprolol. Blood pressure soft currently, reduce dose of metoprolol to 25 mg for today. Former smoker Multiple past CVA: Previously noted on MRI done back in March. Continues on aspirin. Consider addition of statin at discharge. PDMP PDMP Reviewed: Not Reviewed Attestations Medical Necessity Statement*: Admission over 2 midnights anticipated for assessment and management of right hip fracture after fall with possible seizure, low-grade fever. and High MDM includes amount and/or complexity of data reviewed/ordered [ previous or external records, resulted lab(s)/test(s), ordered lab(s)/test(s) and other healthcare professional discussion] and described risk of complication, morbidity or mortality of management as documented Diagnoses Fracture of right hip S72.001A Fever R50.9 Seizure R56.9
[2024-08-28 13:27] LABS: Coronavirus 229E,HKU1,NL63,OC4 Not Detected (NOT DETECT); Parainfluenza Virus Type 1 Not Detected (NOT DETECT); Parainfluenza Virus Type 2 Not Detected (NOT DETECT); Parainfluenza Virus Type 3 Not Detected (NOT DETECT); Parainfluenza Virus Type 4 Not Detected (NOT DETECT); SARS-COV-2 Not Detected (NOT DETECT)
--- NOTE | 2024-08-28 14:00 | PC.NURSE ---
This nurse took report from TOÑO Meier in ER at 1400
[2024-08-28] MEDS: HYDROcodone-acetaminophen 5-325 mg Tablet 1 TAB PO (14:54)
--- NOTE | 2024-08-28 15:00 | PICC.NOTE ---
Referred to vascular access nurse due to poor access and multiple unsuccessful IV attempts. 20 gauge peripheral IV started to right forearm x 1 stick using ultrasound. Good blood return noted. Flushed without difficulty. Report given to bedside nurse, Safia.
--- NOTE | 2024-08-28 16:22 | PM.CONSULT ---
Documented by User: MARLEY Wagner 08/28/24 16:54 Providers/Reason For Consult Consulting Physician/Specialty*: Dr. Macdonald, D.O. /orthopedic surgeon Reason for Consult*: Right hip fracture Requesting Physician: Dr. Coley/emergency department Attending Physician: Mike Wan Primary Care Provider: Mushtaq Watts DO History of Present Illness History of Present Illness Tatiana Alvarez is a 73 year old female that is here in the hospital for right hip fracture. Patient is a poor historian and has history of dementia. History obtained from nursing staff and looking over prior HPI notes. Patient was at half-way today and fell from apparent seizure and she did hit her head. Head CT performed and showed no acute findings. Since her fall she has been having pain in right hip and cannot weight-bear on it. Before fall patient was able to ambulate with a walker on occasion but for the most part ambulated with no walker. Patient is not on a blood thinner. Denies any symptoms such as fevers, nausea/vomiting. Review of Systems General: Reports: 10 or more systems reviewed and unremarkable except in HPI and below Medications/Allergies Home Medications ?Medication ?Instructions ?Recorded ?Confirmed ?Last Taken ?Type acetaminophen 500 mg tablet 500 mg PO Q6H PRN pain #90 tabs 03/10/22 08/28/24 08/20/24 Rx (Tylenol Extra Strength) budesonide 160 mcg-glycopyr 9 2 inh inhalation BID #10.7 grams 02/15/23 08/28/24 08/27/24 Rx mcg-formot 4.8 mcg/actuation HFA inhaler (Breztri Aerosphere) nitroglycerin 0.4 mg sublingual 0.4 mg sublingual Q5M PRN chest 09/06/23 08/28/24 03/06/24 Rx tablet pain #30 tabs pantoprazole 40 mg tablet,delayed 40 mg PO DAILY 03/06/24 08/28/24 08/27/24 History release aspirin 81 mg tablet,delayed 81 mg PO DAILY #30 tabs 03/21/24 08/28/24 08/27/24 Rx release hydrocodone 5 mg-acetaminophen 325 1 tab PO Q8H PRN Pain 07/17/24 08/28/24 08/28/24 History mg tablet furosemide 20 mg tablet (Lasix) 20 mg PO DAILY 08/20/24 08/28/24 08/27/24 History loperamide 2 mg capsule See Rx Instructions .Route 08/20/24 08/28/24 08/22/24 History .COMPLEX PRN loose stools potassium chloride 10 mEq 10 meq PO DAILY 08/20/24 08/28/24 08/27/24 History capsule,extended release acetaminophen 325 mg tablet 650 mg PO BID pain 08/28/24 08/28/24 08/27/24 History citalopram 10 mg tablet 10 mg PO DAILY 08/28/24 08/28/24 08/27/24 History hydrocodone 5 mg-acetaminophen 325 2 tab PO BEDTIME Severe Pain 08/28/24 08/28/24 08/27/24 History mg tablet (Scale Score 7-10) magnesium hydroxide 400 mg/5 mL 30 ml PO DAILY PRN Constipation 08/28/24 08/28/24 Unknown History oral suspension (Milk of Magnesia) melatonin 1 mg tablet 1 mg PO BEDTIME 08/28/24 08/28/24 08/27/24 History menthol 4 % topical gel (Biofreeze 1 applic topical BID 08/28/24 08/28/24 08/27/24 History (menthol)) metoprolol tartrate 100 mg tablet 100 mg PO DAILY 08/28/24 08/28/24 08/27/24 History [id number] 250 mg-dha 90 1 cap PO QAM 08/28/24 08/28/24 08/27/24 History mg-epa 160 ci-kyuo-jjgx-zeax capsule (Ocuvite Adult 50 Plus) nystatin 100,000 unit/gram topical 1 applic topical PRN PRN Rash 08/28/24 08/28/24 08/06/24 History cream ondansetron HCl 4 mg tablet 4 mg PO Q8H PRN Nausea And Vomiting 08/28/24 08/28/24 08/07/24 History enoxaparin 40 mg/0.4 mL 40 mg (0.4 mL) SUBCUT Q24H 21 days 08/31/24 Unknown Rx subcutaneous syringe #8.4 mL Allergies Allergy/AdvReac Type Severity Reaction Status Date / Time metronidazole (From Flagyl) Allergy Intermediate Sores on Verified 08/20/24 10:43 legs lactose AdvReac Unknown Unknown Unverified 08/31/24 12:11 Current Medications Generic Name Dose Route Start Last Admin Trade Name Freq PRN Reason Stop Dose Admin Hydrocodone Bitart/Acetaminophen 1 tab 08/28/24 14:29 08/28/24 14:54 Hydrocodone-Acetaminophen 5-325 Mg Tablet PO 1 tab Q8H PRN Administration PAIN Aspirin 81 mg 08/28/24 14:29 08/28/24 14:54 Aspirin 81 Mg Ec Tablet PO 81 mg DAILY PIERCE Administration Enoxaparin Sodium 40 mg 08/28/24 14:29 08/28/24 14:53 Enoxaparin 40 Mg/0.4 Ml Syringe SUBCUT 40 mg Q24H PIERCE Administration Sodium Chloride 1,000 mls @ 30 mls/hr 08/28/24 09:47 08/28/24 11:42 Sodium Chloride 0.9% IV 30 mls/hr .Q24H PIERCE Infusion Morphine Sulfate 2 mg 08/28/24 09:59 08/28/24 14:22 Morphine 4 Mg/Ml Sdv 1 Ml IVP 2 mg Q1H PRN Administration SEVERE PAIN Ondansetron HCl 4 mg 08/28/24 14:29 08/28/24 14:54 Ondansetron 4 Mg Tablet PO 4 mg Q8H PRN Administration NAUSEA AND VOMITING Pantoprazole Sodium 40 mg 08/28/24 14:29 08/28/24 14:[address] 40 Mg Tablet PO 40 mg DAILY PIERCE Administration PFSH Acute PFSH: Medical History (Updated 08/28/24 @ 11:55 by Mike Wan MD) Aortic valve disease Sacroiliac (ligament) sprain Bony pelvic pain Mixed stress and urge incontinence RLS (restless legs syndrome) History of cancer of vulva s/p excision and radiation therapy Lumbar spondylosis History of PFTs 05/2020: normal spirometry and lung volumes; isolated gas transfer suggestive of pulmonary vascular disease Bright red blood per rectum Altered mental state Arm and leg movements, uncontrollable Hypertension Anxiety about health GERD (gastroesophageal reflux disease) Osteoarthritis of both hands Atherosclerosis of coronary artery Seronegative rheumatoid arthritis of both hands Lumbar stenosis with neurogenic claudication Congestive heart failure Diastolic High risk medication use COPD (chronic obstructive pulmonary disease) Sleep apnea She chose not to treat with CPAP RLS (restless legs syndrome) DDD (degenerative disc disease) Chronic pain pain clinic in [place] Tobacco abuse 2 ppd all of her adult life, 45 + years. Aortic regurgitation mild to moderate Surgical History History of cardiac catheterization 07/2020: moderate left main, stenosis, FFR 0.94, no hemodynamically significant History of colonoscopy 07/2021 History of appendectomy History of hernia repair History of colon surgery H/O: hysterectomy Total Hysterectomy in 1970 History of lung surgery H/O hemorrhoidectomy H/O cataract extraction S/P carpal tunnel release History of bilateral carpal tunnel release Family History Mother Diabetes Heart disease Hypertension Hyperchloremia Stroke Father Alcohol abuse Sister Dementia Stroke Social History Smoking and tobacco/nicotine status: former use of tobacco/nicotine Quit status (tobacco/nicotine): has tried quititng Alcohol intake: former Substance/Drug Use: never Caregiver/support person: Yes Lives independently: Yes Household members: none Marital status: Highest education level completed: GED or Equivalent service: No Current occupational status: retired and disabled Pets and animals: No Do you think of yourself as: Straight/Heterosexual Current gender identity: Female Brenda/Adventist: Taoism Vitals/I&O/Wt Last Vital Signs Temp 97.9 F 08/28/24 15:59 Pulse 87 08/28/24 15:59 Resp 16 08/28/24 15:59 BP 136/98 08/28/24 15:59 Pulse Ox 94 08/28/24 15:59 O2 Del Method Nasal Cannula 08/28/24 15:59 O2 Flow Rate 2 08/28/24 11:00 08/28/24 08/28/24 08/28/24 06:59 14:59 22:59 Intake Total 125 / 125 Output Total 300 / 300 Balance -175 / -175 Weight last 48 hrs Weight 158 lb Physical Exam Const: COMMON NORMALS: no acute distress and alert Resp: COMMON NORMALS: normal respiratory effort and No retractions Cardio: COMMON NORMALS: Peripheral pulses 2+ throughout PERIPHERAL PULSES: Peripheral pulses 2+ throughout Extremity: NARRATIVE EXTREMITY EXAM: (Right) lower extremity-leg is shortened and externally rotated. Positive logroll test. Tenderness to palpation right hip. compartments are soft and compressible. Patient can Wiggle toes. Toes are warm and well-perfused. Pedal pulse 2+. Secondary assessment of other extremities. Upper extremities-no visible injuries, abrasions. Full range of motion in shoulders, elbows and wrist. no tenderness to palpation of shoulders or wrist. (Left) lower extremity-no visible injury or trauma seen. Full range of motion in hip. Negative logroll test. Patient able to perform straight leg raise and can dorsiflex plantarflex foot. Pedal pulse 2+ and patient can wiggle toes. Neuro: SENSORIUM/ORIENTATION: Yes alert Skin: GENERAL SKIN EXAM: dry skin Urinary Catheter Management: Ramirez: Cath Placed During This Visit: yes Urinary Catheter Date of Insertion: 08/28/24 Urinary Catheter Time of Insertion: 09:50 Data 08/31/24 04:38 08/31/24 04:38 Xray Ortho: Radiologist's impression: Patient: Tatiana Alvarez Unit #: [id number] : 1950 Age/Sex: 73 / F ADM Date: 08/28/24 Loc: ER IP Room/Bed: [place] [address]: Mike Wan MD Ordering Provider/Ordering MD: Jose Luis Coley DO Date of Service: 08/28/24 Procedure(s): XR femur RT min 2V* [id number] Accession Number(s): [id number] Report Number: [id number] PROCEDURE INFORMATION: Exam: XR Right Femur Exam date and time: 08/28/2024 9:02 AM Age: 73 years old Clinical indication: Injury or trauma; Fall; Blunt trauma; Thigh or upper leg; Right TECHNIQUE: Imaging protocol: Radiologic exam of the right femur. Views: 2 views. COMPARISON: CR XR knee RT 3V* [id number] 08/28/2024 9:01 AM FINDINGS: Bones/joints: There is an acute comminuted intertrochanteric fracture. There is superior subluxation of the distal fragment. No dislocation of the hip. Linear bony fragment along the medial femoral condyle is also noted consistent with MCL tear. No other fractures are identified. Surgical screw is present within the right iliac wing. Soft tissues: Unremarkable. Vasculature: There is atherosclerotic changes of the vessels. XR/XR femur RT min 2V* [id number] IMPRESSION: Comminuted intertrochanteric fracture right hip. Dictated By: Landy Marshall MD A&P Assessment and plan 1. Fracture of right hip: Plan: -Imaging and Labs reviewed -Hospitalist on board for medical management. -VTE prophylaxis -Nonweightbearing on right leg -Pain control -N.p.o. after midnight -Surgery tomorrow morning for Right hip Trochanteric femur nail PDMP PDMP Reviewed: Not Reviewed Coding Level of Care Code Acute Code for Chg Fwd Diagnoses Fracture of right hip S72.001A Time Spent (min) 45 Documented by User: Lei Macdonald DO 08/31/24 14:27 Medications/Allergies Home Medications ?Medication ?Instructions ?Recorded ?Confirmed ?Last Taken ?Type acetaminophen 500 mg tablet 500 mg PO Q6H PRN pain #90 tabs 03/10/22 08/28/24 08/20/24 Rx (Tylenol Extra Strength) budesonide 160 mcg-glycopyr 9 2 inh inhalation BID #10.7 grams 02/15/23 08/28/24 08/27/24 Rx mcg-formot 4.8 mcg/actuation HFA inhaler (Breztri Aerosphere) nitroglycerin 0.4 mg sublingual 0.4 mg sublingual Q5M PRN chest 09/06/23 08/28/24 03/06/24 Rx tablet pain #30 tabs pantoprazole 40 mg tablet,delayed 40 mg PO DAILY 03/06/24 08/28/24 08/27/24 History release aspirin 81 mg tablet,delayed 81 mg PO DAILY #30 tabs 03/21/24 08/28/24 08/27/24 Rx release hydrocodone 5 mg-acetaminophen 325 1 tab PO Q8H PRN Pain 07/17/24 08/28/24 08/28/24 History mg tablet furosemide 20 mg tablet (Lasix) 20 mg PO DAILY 08/20/24 08/28/24 08/27/24 History loperamide 2 mg capsule See Rx Instructions .Route 08/20/24 08/28/24 08/22/24 History .COMPLEX PRN loose stools potassium chloride 10 mEq 10 meq PO DAILY 08/20/24 08/28/24 08/27/24 History capsule,extended release acetaminophen 325 mg tablet 650 mg PO BID pain 08/28/24 08/28/24 08/27/24 History citalopram 10 mg tablet 10 mg PO DAILY 08/28/24 08/28/24 08/27/24 History hydrocodone 5 mg-acetaminophen 325 2 tab PO BEDTIME Severe Pain 08/28/24 08/28/24 08/27/24 History mg tablet (Scale Score 7-10) magnesium hydroxide 400 mg/5 mL 30 ml PO DAILY PRN Constipation 08/28/24 08/28/24 Unknown History oral suspension (Milk of Magnesia) melatonin 1 mg tablet 1 mg PO BEDTIME 08/28/24 08/28/24 08/27/24 History menthol 4 % topical gel (Biofreeze 1 applic topical BID 08/28/24 08/28/24 08/27/24 History (menthol)) metoprolol tartrate 100 mg tablet 100 mg PO DAILY 08/28/24 08/28/24 08/27/24 History enecpdqb-vkl- 250 mg-dha 90 1 cap PO QAM 08/28/24 08/28/24 08/27/24 History mg-epa 160 oa-cyqa-cugo-zeax capsule (Ocuvite Adult 50 Plus) nystatin 100,000 unit/gram topical 1 applic topical PRN PRN Rash 08/28/24 08/28/24 08/06/24 History cream ondansetron HCl 4 mg tablet 4 mg PO Q8H PRN Nausea And Vomiting 08/28/24 08/28/24 08/07/24 History enoxaparin 40 mg/0.4 mL 40 mg (0.4 mL) SUBCUT Q24H 21 days 08/31/24 Unknown Rx subcutaneous syringe #8.4 mL Allergies Allergy/AdvReac Type Severity Reaction Status Date / Time metronidazole (From Flagyl) Allergy Intermediate Sores on Verified 08/20/24 10:43 legs lactose AdvReac Unknown Unknown Unverified 08/31/24 12:11 PFSH Acute PFSH: Medical History (Updated 08/28/24 @ 11:55 by Mike Wan MD) Aortic valve disease Sacroiliac (ligament) sprain Bony pelvic pain Mixed stress and urge incontinence RLS (restless legs syndrome) History of cancer of vulva s/p excision and radiation therapy Lumbar spondylosis History of PFTs 05/2020: normal spirometry and lung volumes; isolated gas transfer suggestive of pulmonary vascular disease Bright red blood per rectum Altered mental state Arm and leg movements, uncontrollable Hypertension Anxiety about health GERD (gastroesophageal reflux disease) Osteoarthritis of both hands Atherosclerosis of coronary artery Seronegative rheumatoid arthritis of both hands Lumbar stenosis with neurogenic claudication Congestive heart failure Diastolic High risk medication use COPD (chronic obstructive pulmonary disease) Sleep apnea She chose not to treat with CPAP RLS (restless legs syndrome) DDD (degenerative disc disease) Chronic pain pain clinic in [facility] Tobacco abuse 2 ppd all of her adult life, 45 + years. Aortic regurgitation mild to moderate Surgical History History of cardiac catheterization 07/2020: moderate left main, stenosis, FFR 0.94, no hemodynamically significant History of colonoscopy 07/2021 History of appendectomy History of hernia repair History of colon surgery H/O: hysterectomy Total Hysterectomy in 1969 History of lung surgery H/O hemorrhoidectomy H/O cataract extraction S/P carpal tunnel release History of bilateral carpal tunnel release Family History Mother Diabetes Heart disease Hypertension Hyperchloremia Stroke Father Alcohol abuse Sister Dementia Stroke Social History Smoking and tobacco/nicotine status: former use of tobacco/nicotine Quit status (tobacco/nicotine): has tried quititng Alcohol intake: former Substance/Drug Use: never Caregiver/support person: Yes Lives independently: Yes Household members: none Marital status: Highest education level completed: GED or Equivalent service: No Current occupational status: retired and disabled Pets and animals: No Do you think of yourself as: Straight/Heterosexual Current gender identity: Female Brenda/Adventist: Taoism Physical Exam Urinary Catheter Management: Ramirez: Cath Placed During This Visit: yes Data 08/31/24 04:38 08/31/24 04:38 A&P Assessment and plan 1. Fracture of right hip: Plan: -Imaging and Labs reviewed -Hospitalist on board for medical management. -VTE prophylaxis -Nonweightbearing on right leg -Pain control -N.p.o. after midnight -Surgery tomorrow morning for Right hip Trochanteric femur nail Orthopedic attending addendum: Reviewed and agree with PAs assessment and plan. Patient was seen evaluated later in the evening by myself individually. Her son was at bedside at the point of my visit. Patient was able to have conversation and follow simple commands but given her baseline mental status she was a poor historian. Patient had a fall and found to have a right intertrochanteric femur fracture. Talked about her treatment options with patient and his son at the bedside. We talked about the risk benefits complication alternatives of surgical nonsurgical treatment options. Benefits with surgery would include early mobilization as well as pain control. At this point in time we talked about the risks of surgery which include but are not limited to make it better make it worse injury to nerves vessels or tendons, blood clot, infection, acute blood loss anemia, stroke, anesthetic complications. Understanding these risks with surgery patient and son elected proceed with surgical intervention for right hip trochanteric femur nail. She is being medically optimized to proceed with surgical intervention plan will be for tomorrow. They understand agree with current plan. All questions answered at this time. Patient will be n.p.o. at midnight, pain control nonweightbearing right lower extremity hold a.m. anticoagulation plan for or tomorrow for right hip trochanteric femur nail. All questions have been answered at this time. PDMP PDMP Reviewed: Not Reviewed Coding Level of Care Code Acute Code for Chg Fwd Diagnoses Fracture of right hip S72.001A Time Spent (min) 45
[2024-08-28] MEDS: HYDROcodone-acetaminophen 5-325 mg Tablet 2 TAB PO (20:53)
[2024-08-28] MEDS: MELATONIN 3 MG TABLET PO (20:53)
[2024-08-29] VITALS (28 sets, daily range): BP systolic 96–183; BP diastolic 38–82; PULSE 72–100; RESP 12–21; TEMP 36.4–37.5; O2SAT 90–96
[2024-08-29] MEDS: morphine 4 mg/mL SDV 1 mL 2 MG IVP ×3 (02:49→15:13)
[2024-08-29] MEDS: HYDROcodone-acetaminophen 5-325 mg Tablet 1 TAB PO ×2 (03:16→18:03)
[2024-08-29 05:29] LABS: Hematocrit 23.4 % (36-47); Hemoglobin 6.80 g/dL (11.27-16.99); Mean Corpuscular HGB Conc 29.1 g/dL (30-55); Mean Corpuscular Hemoglobin 25.0 pg (27-33); Mean Corpuscular Volume 86.0 fl (85-98); Nucleated Red Blood Cells % 0 %; Platelet Count 320 10^3/cmm (157-399); Red Blood Count 2.72 10^6/uL (3.85-5.65); White Blood Count 8.81 10^3/uL (3.29-11.43)
[2024-08-29 05:54] LABS: Anion Gap 17.8 (5-19); Blood Urea Nitrogen 28 mg/dL (8-23); Calcium 8.9 mg/dL (8.5-10.5); Carbon Dioxide 24 mmol/L (22-29); Chloride 103 mmol/L (98-107); Creatinine Clr Calc Pharmacy 46.0395; Glucose 139 mg/dL (65-115); Osmolality Calculated 298 mOsm/kg (285-295); Potassium 4.8 mmol/L (3.5-5.1); Sodium 140 mmol/L (136-145)
[2024-08-29] MEDS: acetaminophen 1,000 MG/100 ML PIGGYBACK 400 MG IV (06:48)
--- NOTE | 2024-08-29 06:52 | ANES.PREANE2 ---
Pre-Anesthetic Assessment Height/Weight: Height 1.57 m Weight 74.843 kg Temp Pulse Resp BP Pulse Ox O2 Del Method O2 Flow Rate 98.1 F 81 16 119/51 92 Nasal Cannula 2 08/29/24 04:00 08/29/24 06:00 08/29/24 05:39 08/29/24 04:00 08/29/24 04:00 08/29/24 04:00 08/29/24 04:00 Operation Date: 08/29/24 07:00 Proposed Procedures p Trochanteric Femoral Nail(Right) - Lei Lagrange, DO Familial anesthetic complications: None Was Beta Froilan taken within 24 hours: N/A Was Clonidine taken within 24 hours: N/A Last intake: > 8 hrs Social No alcohol and No tobacco former smoker Exam alert, oriented x 3, clear to auscultation bilaterally and regular rate & rhythm Pulmonary Chronic Obstructive Pulmonary Disease and Sleep Apnea CV/HEM Anemia (Hgb 6.8 - Type and screen and will transfuse 2 units prbcs intraop), Coronary Artery Disease (but negative stress test), Congestive Heart Failure (grad I diastolic) and Hypertension Mild AVR EF 65% Pulm HTN Neuropsych Cerebrovascular Accident and Seizure (new onset before admission) Anesthetic Plan ASA status: 4 Anesthesia: General Risk of > 500 ml blood loss (7ml/kg in children): No Medications/Allergies Home Medications ?Medication ?Instructions ?Recorded ?Confirmed ?Last Taken ?Type acetaminophen 500 mg tablet 500 mg PO Q6H PRN pain #90 tabs 03/10/22 08/28/24 08/20/24 Rx (Tylenol Extra Strength) budesonide 160 mcg-glycopyr 9 2 inh inhalation BID #10.7 grams 02/15/23 08/28/24 08/27/24 Rx mcg-formot 4.8 mcg/actuation HFA inhaler (Breztri Aerosphere) nitroglycerin 0.4 mg sublingual 0.4 mg sublingual Q5M PRN chest 09/06/23 08/28/24 03/06/24 Rx tablet pain #30 tabs pantoprazole 40 mg tablet,delayed 40 mg PO DAILY 03/06/24 08/28/24 08/27/24 History release aspirin 81 mg tablet,delayed 81 mg PO DAILY #30 tabs 03/21/24 08/28/24 08/27/24 Rx release hydrocodone 5 mg-acetaminophen 325 1 tab PO Q8H PRN Pain 07/17/24 08/28/24 08/28/24 History mg tablet furosemide 20 mg tablet (Lasix) 20 mg PO DAILY 08/20/24 08/28/24 08/27/24 History loperamide 2 mg capsule See Rx Instructions .Route 08/20/24 08/28/24 08/22/24 History .COMPLEX PRN loose stools potassium chloride 10 mEq 10 meq PO DAILY 08/20/24 08/28/24 08/27/24 History capsule,extended release acetaminophen 325 mg tablet 650 mg PO BID pain 08/28/24 08/28/24 08/27/24 History citalopram 10 mg tablet 10 mg PO DAILY 08/28/24 08/28/24 08/27/24 History hydrocodone 5 mg-acetaminophen 325 2 tab PO BEDTIME Severe Pain 08/28/24 08/28/24 08/27/24 History mg tablet (Scale Score 7-10) magnesium hydroxide 400 mg/5 mL 30 ml PO DAILY PRN Constipation 08/28/24 08/28/24 Unknown History oral suspension (Milk of Magnesia) melatonin 1 mg tablet 1 mg PO BEDTIME 08/28/24 08/28/24 08/27/24 History menthol 4 % topical gel (Biofreeze 1 applic topical BID 08/28/24 08/28/24 08/27/24 History (menthol)) metoprolol tartrate 100 mg tablet 100 mg PO DAILY 08/28/24 08/28/24 08/27/24 History [id number] 250 mg-dha 90 1 cap PO QAM 08/28/24 08/28/24 08/27/24 History mg-epa 160 kv-pada-gdey-zeax capsule (Ocuvite Adult 50 Plus) nystatin 100,000 unit/gram topical 1 applic topical PRN PRN Rash 08/28/24 08/28/24 08/06/24 History cream ondansetron HCl 4 mg tablet 4 mg PO Q8H PRN Nausea And Vomiting 08/28/24 08/28/24 08/07/24 History Allergies Allergy/AdvReac Type Severity Reaction Status Date / Time metronidazole (From Flagyl) Allergy Intermediate Sores on Verified 08/20/24 10:43 legs Current Medications Generic Name Dose Route Start Last Admin Trade Name Sayq PRN Reason Stop Dose Admin Acetaminophen 650 mg 08/28/24 18:00 08/28/24 17:03 Acetaminophen 325 Mg Tablet PO 650 mg On Hold: 08/29/24 06:20 BID PIERCE Administration Comment: Order held by Process Transfer Hydrocodone Bitart/Acetaminophen 1 tab 08/28/24 14:29 08/29/24 03:16 Hydrocodone-Acetaminophen 5-325 Mg Tablet PO 1 tab On Hold: 08/29/24 06:20 Q8H PRN Administration Comment: Order held by Process PAIN Transfer Hydrocodone Bitart/Acetaminophen 2 tab 08/28/24 21:00 08/28/24 20:53 Hydrocodone-Acetaminophen 5-325 Mg Tablet PO 2 tab On Hold: 08/29/24 06:20 BEDTIME PIERCE Administration Comment: Order held by Process Transfer Aspirin 81 mg 08/28/24 14:29 08/28/24 14:54 Aspirin 81 Mg Ec Tablet PO 81 mg On Hold: 08/29/24 06:20 DAILY PIERCE Administration Comment: Order held by Process Transfer Enoxaparin Sodium 40 mg 08/28/24 14:29 08/28/24 14:53 Enoxaparin 40 Mg/0.4 Ml Syringe SUBCUT 40 mg On Hold: 08/29/24 06:20 Q24H PIERCE Administration Comment: Order held by Process Transfer Sodium Chloride 1,000 mls @ 30 mls/hr 08/28/24 09:47 08/28/24 11:42 Sodium Chloride 0.9% IV 30 mls/hr On Hold: 08/29/24 06:20 .Q24H PIERCE Infusion Comment: Order held by Process Transfer Sodium Chloride 1,000 mls @ 30 mls/hr 08/29/24 06:30 08/29/24 06:49 Sodium Chloride 0.9% IV 08/30/24 06:29 30 mls/hr .Q24H PIERCE Administration Melatonin 3 mg 08/28/24 21:00 08/28/24 20:53 Melatonin 3 Mg Tablet PO 3 mg On Hold: 08/29/24 06:20 BEDTIME PIERCE Administration Comment: Order held by Process Transfer Morphine Sulfate 2 mg 08/28/24 09:59 08/29/24 05:39 Morphine 4 Mg/Ml Sdv 1 Ml IVP 2 mg On Hold: 08/29/24 06:20 Q1H PRN Administration Comment: Order held by Process SEVERE PAIN Transfer Ondansetron HCl 4 mg 08/28/24 14:29 08/28/24 14:54 Ondansetron 4 Mg Tablet PO 4 mg On Hold: 08/29/24 06:20 Q8H PRN Administration Comment: Order held by Process NAUSEA AND VOMITING Transfer Pantoprazole Sodium 40 mg 08/28/24 14:29 08/28/24 14:[address] 40 Mg Tablet PO 40 mg On Hold: 08/29/24 06:20 DAILY PIERCE Administration Comment: Order held by Process Transfer [facility] Anesthesia Medical History (Updated 08/28/24 @ 11:55 by Mike Wan MD) Aortic valve disease Sacroiliac (ligament) sprain Bony pelvic pain Mixed stress and urge incontinence RLS (restless legs syndrome) History of cancer of vulva s/p excision and radiation therapy Lumbar spondylosis History of PFTs 05/2020: normal spirometry and lung volumes; isolated gas transfer suggestive of pulmonary vascular disease Bright red blood per rectum Altered mental state Arm and leg movements, uncontrollable Hypertension Anxiety about health GERD (gastroesophageal reflux disease) Osteoarthritis of both hands Atherosclerosis of coronary artery Seronegative rheumatoid arthritis of both hands Lumbar stenosis with neurogenic claudication Congestive heart failure Diastolic High risk medication use COPD (chronic obstructive pulmonary disease) Sleep apnea She chose not to treat with CPAP RLS (restless legs syndrome) DDD (degenerative disc disease) Chronic pain pain clinic in [facility] Tobacco abuse 2 ppd all of her adult life, 45 + years. Aortic regurgitation mild to moderate Surgical History History of cardiac catheterization 07/2020: moderate left main, stenosis, FFR 0.94, no hemodynamically significant History of colonoscopy 07/2021 History of appendectomy History of hernia repair History of colon surgery H/O: hysterectomy Total Hysterectomy in 1970 History of lung surgery H/O hemorrhoidectomy H/O cataract extraction S/P carpal tunnel release History of bilateral carpal tunnel release Family History Mother Diabetes Heart disease Hypertension Hyperchloremia Stroke Father Alcohol abuse Sister Dementia Stroke Social History Smoking and tobacco/nicotine status: former use of tobacco/nicotine Quit status (tobacco/nicotine): has tried quititng Alcohol intake: former Substance/Drug Use: never Caregiver/support person: Yes Lives independently: Yes Household members: none Marital status: Highest education level completed: GED or Equivalent service: No Current occupational status: retired and disabled Pets and animals: No Do you think of yourself as: Straight/Heterosexual Current gender identity: Female Brenda/Protestant: [place]ze Data Anesthesia 08/29/24 05:22 08/29/24 05:22 Short CBC 08/28/24 08/29/24 Range/Units 06:00 05:22 WBC 13.90 H 8.81 (3.29-11.43) 10^3/uL Hgb 9.00 L 6.80 L (11.27-16.99) g/dL Hct 31.7 L 23.4 L (36-47) % MCV 87.3 86.0 (85-98) fl Plt Count 423 H 320 (157-399) 10^3/cmm Neut % (Auto) 57.2 76.8 % Neut # (Auto) 7.96 H 6.78 (1.8-7.7) 10^3/uL BMP 08/28/24 08/29/24 06:00 05:22 Sodium 137 140 Potassium 4.9 4.8 Chloride 99 103 Carbon Dioxide 15 L 24 BUN 17 28 H Creatinine 0.7 1.0 H Glucose 199 H 139 H Calcium 9.2 8.9 Liver Function 08/28/24 Range/Units 06:00 Total Bilirubin 0.2 (0.15-1.2) mg/dL AST 14 (0-32) U/L ALT 8 (0-33) U/L Alkaline Phosphatase 102 (35-105) U/L Albumin 3.8 (3.5-5.2) g/dL Urine 08/28/24 Range/Units 09:44 Urine Color Yellow (Yellow) Urine Appearance Clear (CLEAR) Urine pH 5.5 (5-7) Ur Specific [place] 1.019 (1.005-1.030) Urine Protein 1+ A (Negative) Urine Glucose (UA) Negative (Normal) Urine Ketones Negative (Negative) Urine Nitrate Negative (Negative) Urine Bilirubin Negative (Negative) Ur Leukocyte Esterase Trace A (Negative) Urine RBC 3-5 (0-2) /hpf Urine WBC 6-10 (0-5) /hpf COVID Results 08/28/24 11:34 Coronavirus 229E (PCR) Not detected SARS-CoV-2 (PCR) Not detected Cardiac Studies: Echocardiogram 03/19/24 Echocardiogram Ultrasound 02/21/20 Sestamibi Stress Test (Cardiology) 09/01/23 Cardiac Event Monitor 03/26/24
[2024-08-29 06:53] LABS: Hematocrit 23.1 % (36-47); Hemoglobin 6.80 g/dL (11.27-16.99); Mean Corpuscular HGB Conc 29.4 g/dL (30-55); Mean Corpuscular Hemoglobin 24.9 pg (27-33); Mean Corpuscular Volume 84.6 fl (85-98); Nucleated Red Blood Cells % 0 %; Platelet Count 298 10^3/cmm (157-399); Red Blood Count 2.73 10^6/uL (3.85-5.65); White Blood Count 9.08 10^3/uL (3.29-11.43)
[2024-08-29 06:59] LABS: Anion Gap 17.4 (5-19); Blood Urea Nitrogen 28 mg/dL (8-23); Calcium 8.7 mg/dL (8.5-10.5); Carbon Dioxide 22 mmol/L (22-29); Chloride 102 mmol/L (98-107); Creatinine Clr Calc Pharmacy 51.1550; Glucose 150 mg/dL (65-115); Osmolality Calculated 292 mOsm/kg (285-295); Potassium 4.4 mmol/L (3.5-5.1); Sodium 137 mmol/L (136-145)
--- NOTE | 2024-08-29 06:59 | W.PM.OPSUD ---
Surgery/Procedure H&P Update DATE OF PROCEDURE: August 29, 2024 DATE H&P PERFORMED: 08/28/24 H&P UPDATE INFORMATION: I have reviewed H&P completed within last 30 days, I have examined patient prior to procedure and No changes to prior documentation PREOP DIAGNOSIS: Right hip intertrochanteric femur fracture PRIMARY INDICATION FOR PROCEDURE: Right hip intertrochanteric femur fracture PLANNED PROCEDURE: Operation Date: 08/29/24 07:00 Proposed Procedures p Trochanteric Femoral Nail(Right) - Lei Macdonald DO
--- NOTE | 2024-08-29 07:20 | PM.MISC ---
Miscellaneous Note Purpose of Documentation: Orthopedic note update: Upon seeing patient and family in the preoperative holding area and Signing consent we will doing her H&P update her labs were reviewed and was found to have an 6.8 hemoglobin. At this point in time I worry this is this low and unfortunately we are unable to get blood products immediately I feel she would be best optimized if we are able to get her 1 unit of blood in her system prior to taking her back I suspect she will need another unit PRBC where we can start the second one when patient is going back to the OR for prior to starting the case. i Feel this will better optimize for this patient prior to us proceeding with surgical intervention just given her age. I did bring the family back and we talked about this plan at this point in time will be to delay her surgery to receive blood prior to and plan of hopefully getting this addressed and fixed around 11 this morning. Patient and family understand agree with current plan. All questions answered. Lei Macdonald, DO Orthopedic surgery
--- NOTE | 2024-08-29 07:29 | PC.NURSE ---
[id number]-Received pt back to outpatient surgery from [facility]. Pt immediately put back on O2 at 3L and O2 sat back up to 94%. Waiting on Dr Macdonald and Dr Hoffman to decide on when to give blood. Reported off to zuleyma Evans charge nurse
--- NOTE | 2024-08-29 09:21 | P.PN_ITS ---
Subjective 2 Subjective: Back was bothering her earlier but is feeling better now. Denies any cough. No chest pain or pressure. Vitals/I&O/Wt Last Vital Signs Temp 97.8 F 08/29/24 08:55 Pulse 78 08/29/24 08:55 Resp 17 08/29/24 08:55 BP 123/46 08/29/24 08:55 Pulse Ox 95 08/29/24 08:55 O2 Del Method Nasal Cannula 08/29/24 04:00 O2 Flow Rate 2 08/29/24 04:00 08/28/24 08/29/24 08/29/24 22:59 06:59 14:59 Intake Total 480 / 605 100 / 705 0 / 0 Output Total 500 / 800 1000 / 1800 Balance -20 / -195 -900 / -1095 0 / 0 Weight last 48 hrs Weight 74.843 kg Weight 71.668 kg Physical Exam 2 Const: COMMON NORMALS: patient oriented x3 and alert GENERAL APPEARANCE: c ooperative ORIENTATION/CONSCIOUSNESS: Yes awake HENMT: COMMON NORMALS: oropharynx normal Neck/C-Spine: COMMON NORMALS: no JVD Resp: COMMON NORMALS: normal respiratory effort and clear to auscultation bilaterally AUSCULTATION: clear to auscultation bilaterally Cardio: COMMON NORMALS: no JVD, regular rhythm, S1 normal heart sound present, S2 normal heart sound present and No murmurs present (Cardio) RHYTHM: regular rhythm HEART SOUNDS: S1 normal heart sound present and S2 normal heart sound present GI: COMMON NORMALS: Normal to inspection, nondistended, normoactive bowel sounds present, Soft to palpation and non-tender PALPATION: Yes Soft to palpation Extremity: COMMON NORMALS: no joint enlargement and no pedal edema N ARRATIVE EXTREMITY EXAM: Right hip postoperative dressing without swelling, bruising, redness. Neuro: COMMON NORMALS: patient oriented x3 and moves all extremities S ENSORIUM/ORIENTATION: Yes alert Skin: COMMON NORMALS: no rashes or lesions noted GENERAL SKIN EXAM: no rashes or lesions noted Urinary Catheter Management: Ramirez: Cath Placed During This Visit: yes Reason for Continuing Indwelling Catheter: Perioperative Use in Selected Surgeries Urinary Catheter Date of Insertion: 08/28/24 Urinary Catheter Time of Insertion: 09:50 Data 08/29/24 06:25 08/29/24 06:25 A&P Assessment and plan 1. Fracture of right hip: This morning hemoglobin down to 6.8 with acute anemia received transfusion prior to surgical repair, discussed with orthopedic surgeon. Status post right hip ORIF, reviewed surgery note, discussed with nursing, home health care case manager. On discussion with her she is Doing well after surgery, denies any significant pain other than back pain bothering her earlier which has since resolved. No chest pain or pressure. No nausea or vomiting. She is requiring increased amount of oxygen at 6 L. Discussed with her obtaining chest x-ray. Mild crackles in the left base., Chest x-ray appears to have some increased vascular congestion compared to prior imaging on my interpretation. Requesting NT proBNP. She is on oral Lasix, discussed with her give her additional dose of 20 mg IV Lasix x 1. Monitor for risk of electrolyte deficiency, reassess chemistry. Pending PT evaluation. - Acetaminophen, hydrocodone for pain. IV morphine ordered for severe breakthrough pain. - Post-op disposition likely return to nursing facility once stable for continued rehabilitation per discussion with CM. 2. Fever: Without recurrence of fever. Disease noted with some leukocytosis 11.83. She denies cough, any phlegm production. Some congestive changes on chest x-ray, has been read as clear by radiology. Monitor oxygenation, for any change in symptoms, possible aspiration after seizure, although so far without evidence of pneumonia. Respiratory viral panel reviewed and negative. Encouraged incentive spirometer. - Monitor vitals and WBC trend; no antibiotics unless new evidence of bacterial infection. - Supportive care with antipyretics as needed. 3. Seizure: New-onset seizure/head injury : Witnessed convulsive episode at time of fall; first documented seizure; head CT negative for acute bleed; history of multiple chronic infarcts noted on recent MRI that was just done in March, reviewed. Discussed with her outpatient EEG and follow-up with neurology. Plan: Acute anemia: After hip fracture, status post 2 units RBC transfusion. Repeat CBC reviewed, with good response. Follow-up repeat blood counts. Obtained iron studies. Noted iron deficiency anemia combined with ACD on review of TIBC, ferritin. Obtain Hemoccult. Iron sucrose, monitor for risk of allergic reaction. Diastolic CHF: Reviewed weight, chemistry, intake and output. Possible acute diastolic CHF with noted hypoxia, congestive changes on chest x-ray, crackles left base, received blood transfusion. Will give additional Lasix IV 20 mg at this time. Mild aortic regurgitation: Reviewed prior echocardiogram SARAH: Does not wear CPAP at night, cannot tolerate it COPD: Not currently in exacerbation. Is receiving 5 L nasal oxygen. Requested oxygen therapy protocol, avoid hyperoxia, target O2 saturation 88-92%. Add breathing treatments, scheduled and as needed. Seronegative rheumatoid arthritis RLS DDD HTN: Monitor blood pressures. Continue metoprolol. Blood pressure soft currently, reduce dose of metoprolol to 25 mg for today. Former smoker Multiple past CVA: Previously noted on MRI done back in March. Continues on aspirin. Consider addition of statin at discharge. PDMP PDMP Reviewed: Not Reviewed Attestations 2 Medical Necessity Statement*: Continue admission for assessment and management after right hip fracture and repair, seizure, fever episode, acute diastolic CHF, acute anemia requiring blood transfusion, additional comorbidities as above. and High MDM includes amount and/or complexity of data reviewed/ordered [ resulted lab(s)/test(s), ordered lab(s)/test(s) and other healthcare professional discussion] and described risk of complication, morbidity or mortality of management as documented Diagnoses Fracture of right hip S72.001A Fever R50.9 Seizure R56.9
[2024-08-29 09:57] LABS: Ferritin 26 ng/mL (15-150); Iron 21 ug/dL (37-145); Total Iron Binding Capacity 347 mcg/dl; Unsaturated Iron Binding 326 ug/dL (112-347)
[2024-08-29] MEDS: ceFAZolin 2,000 MG in sodium chloride 0.9% (plus) 50 ML 100 MG IV ×2 (11:04→18:16)
[2024-08-29] MEDS: tranexamic acid 1,000 mg/10mL SDV 1000 MG (11:05)
--- NOTE | 2024-08-29 12:13 | W.PM.BPON ---
Date of Procedure: 08/29/2024 Surgeon: Lei Macdonald DO Medical Office Assistant(s): Angelo Macdonald PA-C Procedure(s) performed: Right hip trochanteric femur nail Findings of the procedure(s): Patient underwent procedure as planned without issues or complications Estimated blood loss: 100 mL Specimen(s) removed: None Post-operative diagnosis: Right hip intertrochanteric femur fracture
--- NOTE | 2024-08-29 12:14 | P.OP_ITS ---
Operative Report Date of procedure: August 29, 2024 Surgeon: Lei Macdonald DO Resource Development Director: Angelo Macdonald PA-C: PA was necessary for assistance in this case with leg positioning assistance and instrumentation, as well as assistance in implantation wound closure and dressing application. Procedure: Preoperative diagnosis: Right displaced intertrochanteric femur fracture Post-op diagnosis: right displaced intertrochanteric femur fracture Procedure done: Right intertrochanteric femur fracture ORIF with cephalomedullary nail Implants: Anuj gamma nail short 11 mm x 180 mm x 125 degree Lag screw 10.5 mm x 105?mm Distal locking screw 5 mm x 35 mm Surgeon: Lei Macdonald DO Estimated blood loss: 100 mm IV fluids: 1200 mL Urine output: 175 mL Complications: See operative?report Findings: See operative?report narrative Condition: stable Disposition: Floor Brief History: Patient sustained a fall and was found to have a?right intertrochanteric hip fx.?Pt has?been unable to bear weight,?right hip/lower extremity shortened and externally?rotated.? At this point time Pt?was admitted by the hospitalist team and orthopedics was consulted.??Refer to consult note for detailed HPI.? We talked about treatment options as far as nonoperative and operative intervention.?Recommend?Right hip?trochanteric femur nail.? At this point time patient and son who is her POA would like to pursue surgical intervention for benefits of pain control and earlier mobilization.?? Patient understands the ins and outs of procedure, the?risk benefits complication alternatives of surgical nonsurgical treatment options.? Understanding?risk of surgery pt?agrees to proceed with surgical intervention all questions answered.? Consent obtained by her son who is POA and was reviewed in the preoperative holding area. She did have a drop in her hemoglobin this morning she subsequently received a 1 unit of PRBC and already was on her second unit PRBC and patient was taken back. I did call and update hospitalist who agrees with current plan. All questions answered. I did update the son so he is aware of our pausing for surgery this morning with plan for taking it at 11:00 after she has received her unit PRBC and started the second. He understands and agrees with current plan. All questions answered. Procedure: Patient seen evaluated in the preoperative holding area.? Consent was obtained.? Correct extremity was then marked.? Once cleared by anesthesia and the hospitalist team patient was taken back to the operative suite.? Patient underwent anesthesia per the anesthesia department.? Once appropriately anesthetized patient was placed on a fracture [place] table.? Patient was appropriately secured to the bed.? All bony prominences were well-padded.? At this point time patient?received appropriate preoperative antibiotics.? Final timeout was performed.? Prior to beginning surgery a standard closed?reduction maneuver was placed on the [place] table and large C-arm was brought in.? After performing a closed?reduction maneuver there was able to achieve satisfactory?reduction of?right intertrochanteric femur fracture.? Fracture site did not extend into the subtrochanteric?region as?result plan was for a short nail.?? This point time the?right lower extremity was then prepped and draped in standard orthopedic fashion. A standard longitudinal incision was made just proximal to the greater?trochanter?roughly 4 cm in length sharp scalpel vision was made through skin and subcutaneous tissue.? I then utilized a blunt Garcia to split? fascia and mobilized directly down to the greater?trochanter.? I then inserted my starting guidewire which was placed appropriate starting position the tip of the greater?trochanter.? This was advanced in AP and lateral films to be in center center position and advanced to the level lesser?trochanter.? This was confirmed to be in center center position on AP and lateral imaging.? Once this was done I then introduced my opening?reamer which was then subsequently guide pin?removed.? I selected a 11 mm x 180 mm x 125 degree. This point I went to pass the 11 mm nail down this was slightly tight at the isthmus distally and as a result I subsequently placed a long ball-tipped guidewire and sequentially reamed up to 13 mm starting at 10 mm to accommodate for the 11 mm passing nail preoperatively she had measured 12.5 mm. I sequentially reamed and had excellent chatter at 13 mm. At this point time the nail was then loaded onto the Anuj gamma?trochanteric nail guide.? This was placed within the canal and confirmed with XR and the setscrew was then gently placed not locked.? The nail was then impacted to appropriate depth .? At this point time I then inserted my lag screw guide and subsequently made a small incision through skin and subcutaneous tissue splitting the IT band longitudinally and the guide was placed directly onto bone.? Next I then subsequently placed the guidewire in center center position in the head with an appropriate tip to apex distance this was confirmed with multiple orthogonal images.? Once I was satisfied with my planned lag screw placement I then measured which was?105?mm.? I then set my cannulated drill and subsequently?reamed this into the head at appropriate depth.? I then had my?rep open the 10.5 mm x 105 mm lag screw which was then opened on the back table and subsequently screwed into place over my cannulated drill guide.? This was placed with satisfactory tip to apex distance.? Next I then utilized the compressing device and subsequently compressed my fracture af ter I let off traction.? This had excellent fracture compression and opposition and closing down to my fracture line.? Next I then locked the nail by locking my setscrew.? This point time the guidewire as well as the sleeve was then?removed.? Next I plan for statically locking the nail distally.? This triple sleeve was then placed a small stab incision was made blunt dissection directly down to bone and the guide sleeve was placed and locked directly onto the bone.? I then inserted the drill bit and subsequently drilled bicortically measured appropriate length screw and then placed a 35?mm distal interlocking screw and had excellent fixation was appropriate length.? This point time is completed my construct I?remove the outer jig and took final images of AP and lateral of the?right intertrochanteric femur fracture which showed stable?reduction and stable fixation.? Incision was then thoroughly irrigated.? Hemostasis was maintained with electrocautery.? I then once again thoroughly irrigated the incisions and then subsequently closed in layered fashion of 0 Vicryl 2-0 Vicryl and frederick.? Silverlon dressings applied.? Patient was then awakened from anesthesia transported onto the hospital bed and taken to PACU in stable condition.? Patient tolerated procedure without complications. Disposition: Patient taken to PACU in stable condition.? Postoperatively,? Patient to?receive appropriate discharge instructions as well as pain medication DVT prophylaxis postoperatively.? Patient?will be allowed weightbearing as tolerated?right lower extremity.? Will?receive appropriate postoperative antibiotics, PT/OT.? Patient to follow-up in the orthopedic office in 2 weeks.? Patients family understands and agrees with current plan.? All questions answered.
--- NOTE | 2024-08-29 12:28 | XRR_ITS ---
PROCEDURE INFORMATION: Exam: XR Right Hip Exam date and time: 08/29/2024 12:55 PM Age: 73 years old Clinical indication: Device placement; Other: R hip troch nail; Prior surgery; Surgery date: Post-operative (0-2 days); Additional info: S/P R hip troch nail TECHNIQUE: Imaging protocol: Radiologic exam of the right hip. Views: 1 view hip with pelvis when performed. COMPARISON: CR XR hip RT 2-3V wo/w pel* [id number] 08/28/2024 6:38 AM FINDINGS: Bones/joints: Status post open reduction and internal fixation of previously seen comminuted intertrochanteric fracture. Interval placement of a short intramedullary dominick and dynamic screw. Alignment is significantly improved. Persistent displaced avulsion fracture of the lesser trochanter. This is displaced up to 1.9 cm. Alignment at the right hip joint is normal. Left hip joint appears unremarkable. Symphysis pubis is normally aligned. Superior and inferior pubic rami are intact. Soft tissues: Postsurgical changes are present within the overlying soft tissues. XR/XR hip RT 2-3V wo/w pel* [id number] IMPRESSION: Status post interval open reduction and internal fixation of the previously seen comminuted and displaced intertrochanteric fracture. Interval placement of a short intramedullary dominick and dynamic screw. The alignment is significantly improved. Displaced avulsion fracture of the lesser trochanter persists.
--- NOTE | 2024-08-29 12:42 | PC.NURSE ---
1228- RBC continues to infuse into right ac without difficulty - see vital signs in phase 1
--- NOTE | 2024-08-29 12:42 | PM.PACU ---
PACU note Narrative: Patient is a 73-year-old female just underwent a right hip ORIF. Exam limited due to patient's underlying dementia. Pt transferred to PACU in stable condition. Dressing is dry. pt is awake and alert. pt can wiggle toes Distal pulses are palpable toes are warm and well-perfused. Cap refill is normal and under 2 seconds. Sensation to foot is intact. Pain is controlled. Exam: awake Disposition: back to floor
--- NOTE | 2024-08-29 13:25 | PC.NURSE ---
1322 - BP 142/77 - pulse 87 - 91% 4LNC - temp 98.6
--- NOTE | 2024-08-29 14:25 | XR_ITS ---
WS: [id number] Portable AP semiupright chest, 08/29/2024 Clinical Data: hypoxia Comparison: None. Findings: No nodules, masses or effusions are seen. The heart is normal. The pulmonary vascularity is not increased. No pneumonia or pneumothorax is seen. The aortic arch and descending thoracic aorta show calcification and tortuosity. XR/XR chest 1V portable [id number] Impression: Atherosclerosis.
[2024-08-29] MEDS: chlorhexidine gluconate 0.12% Btl 473 mL 30 ML MUCOUS MEM ×3 (15:12→20:18)
[2024-08-29 15:30] LABS: Hematocrit 30.3 % (36-47); Hemoglobin 9.40 g/dL (11.27-16.99); Mean Corpuscular HGB Conc 31.0 g/dL (30-55); Mean Corpuscular Hemoglobin 26.8 pg (27-33); Mean Corpuscular Volume 86.3 fl (85-98); Nucleated Red Blood Cells % 0 %; Platelet Count 262 10^3/cmm (157-399); Red Blood Count 3.51 10^6/uL (3.85-5.65); White Blood Count 11.83 10^3/uL (3.29-11.43)
[2024-08-29 16:57] LABS: NT Pro B Type Natriuretic Pept 306 pg/mL (0-450)
[2024-08-29] MEDS: mupirocin oint 22 gm 1 APPLIC NASAL (18:02)
[2024-08-29] MEDS: sennosides-docusate Tablet 2 TAB PO (18:03)
[2024-08-29] MEDS: FUROsemide 10 mg/mL SDV 2mL 20 MG IVP (18:03)
[2024-08-29] MEDS: calcium carb-vit d 600mg/400unit 1 Tablet 1 EACH PO (18:03)
[2024-08-29] MEDS: tranexamic acid 1,000 MG/100 ML PREMIX 600 MG IV (18:16)
[2024-08-29] MEDS: IRON SUCROSE 100 MG/5 ML 200 MG IVP (18:37)
[2024-08-29] MEDS: MELATONIN 3 MG TABLET PO (20:18)
[2024-08-29] MEDS: HYDROcodone-acetaminophen 5-325 mg Tablet 2 TAB PO (20:19)
[2024-08-30] VITALS (12 sets, daily range): BP systolic 99–158; BP diastolic 51–64; PULSE 78–94; RESP 13–18; TEMP 36.5–37.3; O2SAT 92–98
[2024-08-30] MEDS: ceFAZolin 2,000 MG in sodium chloride 0.9% (plus) 50 ML 100 MG IV ×2 (02:17→12:41)
[2024-08-30] MEDS: HYDROcodone-acetaminophen 5-325 mg Tablet 1 TAB PO ×2 (02:57→12:41)
[2024-08-30 05:42] LABS: Hematocrit 26.6 % (36-47); Hemoglobin 8.40 g/dL (11.27-16.99); Mean Corpuscular HGB Conc 31.6 g/dL (30-55); Mean Corpuscular Hemoglobin 27.4 pg (27-33); Mean Corpuscular Volume 86.6 fl (85-98); Nucleated Red Blood Cells % 0 %; Platelet Count 244 10^3/cmm (157-399); Red Blood Count 3.07 10^6/uL (3.85-5.65); White Blood Count 9.84 10^3/uL (3.29-11.43)
[2024-08-30 06:00] LABS: Anion Gap 15.3 (5-19); Blood Urea Nitrogen 20 mg/dL (8-23); Calcium 8.7 mg/dL (8.5-10.5); Carbon Dioxide 25 mmol/L (22-29); Chloride 104 mmol/L (98-107); Creatinine Clr Calc Pharmacy 57.6887; Glucose 134 mg/dL (65-115); Osmolality Calculated 295 mOsm/kg (285-295); Potassium 4.3 mmol/L (3.5-5.1); Sodium 140 mmol/L (136-145)
[2024-08-30] MEDS: sennosides-docusate Tablet 2 TAB PO ×2 (09:33→18:04)
[2024-08-30] MEDS: calcium carb-vit d 600mg/400unit 1 Tablet 1 EACH PO ×2 (09:34→18:05)
[2024-08-30] MEDS: morphine 4 mg/mL SDV 1 mL 2 MG IVP ×2 (09:36→14:05)
[2024-08-30] MEDS: mupirocin oint 22 gm 1 APPLIC NASAL ×2 (09:41→18:06)
[2024-08-30] MEDS: chlorhexidine gluconate 0.12% Btl 473 mL 30 ML MUCOUS MEM ×3 (09:41→21:38)
[2024-08-30] MEDS: multivitamin therapeutic Tablet 1 TAB PO (09:43)
[2024-08-30 11:03] LABS: Hemoglobin 8.20 g/dL (11.27-16.99)
--- NOTE | 2024-08-30 11:26 | P.PN_ITS ---
Subjective 2 Subjective: She was bothered by some pain in her right hip radiating down her right leg earlier this morning. She is preemptively worried about getting in pain before even working with physical therapy. Vitals/I&O/Wt Last Vital Signs Temp 97.7 F 08/30/24 08:12 Pulse 78 08/30/24 08:12 Resp 16 08/30/24 09:36 BP 146/62 08/30/24 08:12 Pulse Ox 96 08/30/24 08:12 O2 Del Method Nasal Cannula 08/30/24 08:12 O2 Flow Rate 4 08/30/24 07:32 08/29/24 08/30/24 08/30/24 22:59 06:59 14:59 Intake Total 510 / 2588.5 290 / 2878.5 480 / 480 Output Total 1250 / 1525 300 / 1825 Balance -740 / 1063.5 -10 / 1053.5 480 / 480 Weight last 48 hrs Weight 75.206 kg Weight 74.843 kg Physical Exam 2 Const: COMMON NORMALS: patient oriented x3 and alert GENERAL APPEARANCE: c ooperative ORIENTATION/CONSCIOUSNESS: Yes awake HENMT: COMMON NORMALS: oropharynx normal Neck/C-Spine: COMMON NORMALS: no JVD Resp: COMMON NORMALS: normal respiratory effort and clear to auscultation bilaterally AUSCULTATION: clear to auscultation bilaterally Cardio: COMMON NORMALS: no JVD, regular rhythm, S1 normal heart sound present, S2 normal heart sound present and No murmurs present (Cardio) RHYTHM: regular rhythm HEART SOUNDS: S1 normal heart sound present and S2 normal heart sound present GI: COMMON NORMALS: Normal to inspection, nondistended, normoactive bowel sounds present, Soft to palpation and non-tender PALPATION: Yes Soft to palpation Extremity: COMMON NORMALS: no joint enlargement and no pedal edema N ARRATIVE EXTREMITY EXAM: Right hip postoperative dressing without swelling, bruising, redness. Leg is perfused. She is moving her foot and ankle. Neuro: COMMON NORMALS: patient oriented x3 and moves all extremities S ENSORIUM/ORIENTATION: Yes alert Skin: COMMON NORMALS: no rashes or lesions noted GENERAL SKIN EXAM: no rashes or lesions noted Urinary Catheter Management: Ramirez: Cath Placed During This Visit: yes, but has since been removed by the nurse Reason for Continuing Indwelling Catheter: Decision to DC Catheter Urinary Catheter Date of Insertion: 08/28/24 Urinary Catheter Time of Insertion: 09:50 Date Urinary Catheter Removed: 08/30/24 Time Urinary Catheter Discontinued: 10:13 Data 08/30/24 10:33 08/30/24 05:28 A&P Assessment and plan 1. Fracture of right hip: Reviewed vitals, CBC, hemoglobin down to 8.2 this morning. Still on 4 L of nasal cannula oxygen. She reports breathing otherwise is comfortable. No cough. No chest pain or pressure. No nausea or vomiting. Underwent PT assessment this morning, got up and moved to the chair. She is preemptively worried about pain. Continue oxygen support will give additional 20 mg IV Lasix x 1. Will hold off additional intensive diuresis as BNP is not quite elevated at 306. Reassess oxygenation, wean down as tolerating. Discussed with respiratory therapy. Continue breathing treatments. Discussed with orthopedics otherwise will be ready for discharge Continue pain control, acetaminophen. Required morphine for severe breakthrough pain. This morning hemoglobin down to 6.8 with acute anemia received transfusion prior to surgical repair, discussed with orthopedic surgeon. Status post right hip ORIF, reviewed surgery note, discussed with nursing, hospice case manager. On discussion with her she is Doing well after surgery, denies any significant pain other than back pain bothering her earlier which has since resolved. No chest pain or pressure. No nausea or vomiting. She is requiring increased amount of oxygen at 6 L. Discussed with her obtaining chest x-ray. Mild crackles in the left base., Chest x-ray appears to have some increased vascular congestion compared to prior imaging on my interpretation. PT - Post-op disposition likely return to nursing facility once stable for continued rehabilitation per discussion with CM. 2. Fever: Without recurrence of fever. Reviewed CBC, leukocytosis resolved, WBC normal today. She denies cough, any phlegm production. Some congestive changes on chest x-ray, has been read as clear by radiology. Monitor oxygenation, for any change in symptoms, possible aspiration after seizure, although so far without evidence of pneumonia. Respiratory viral panel negative. Continue to encourage incentive spirometer. - Monitor vitals and WBC trend; no antibiotics unless new evidence of bacterial infection. - Supportive care with antipyretics as needed. 3. Seizure: New-onset seizure/head injury : Witnessed convulsive episode at time of fall; first documented seizure; head CT negative for acute bleed; history of multiple chronic infarcts noted on recent MRI that was just done in March, reviewed. Discussed with her outpatient EEG and follow-up with neurology. Plan: Acute anemia: Reviewed hemoglobin down to 8.2 today. Reassess in the morning. After hip fracture, status post 2 units RBC transfusion. Repeat CBC reviewed, with good response. Follow-up repeat blood counts. Obtained iron studies. Noted iron deficiency anemia combined with ACD on review of TIBC, ferritin. Obtain Hemoccult. Iron sucrose, monitor for risk of allergic reaction. Diastolic CHF: Will give additional 20 mg IV push Lasix. Reviewed chemistry, potassium is okay. Sodium 140. Check magnesium. Monitor intake and output. Weight appears to be higher than her normal at 75 kg. Monitor oxygenation, wean down as tolerating. Acute diastolic CHF with noted hypoxia, congestive changes on chest x-ray, crackles left base, received blood transfusion. Will give additional Lasix IV 20 mg at this time. Mild aortic regurgitation: Reviewed prior echocardiogram SARAH: Does not wear CPAP at night, cannot tolerate it COPD: Not currently in exacerbation. Is receiving 5 L nasal oxygen. Requested oxygen therapy protocol, avoid hyperoxia, target O2 saturation 88-92%. Add breathing treatments, scheduled and as needed. Seronegative rheumatoid arthritis RLS DDD HTN: Monitor blood pressures. Continue metoprolol. Blood pressure soft currently, reduce dose of metoprolol to 25 mg for today. Former smoker Multiple past CVA: Previously noted on MRI done back in March. Continues on aspirin. Consider addition of statin at discharge. PDMP PDMP Reviewed: Not Reviewed Attestations 2 Medical Necessity Statement*: Continue admission for optimization of respiratory status, acute diastolic heart failure, blood count reassessment after acute anemia, postoperative care and discharge planning after right hip fracture and repair. and High MDM includes amount and/or complexity of data reviewed/ordered [ previous or external records, resulted lab(s)/test(s), ordered lab(s)/test(s) and other healthcare professional discussion] and described risk of complication, morbidity or mortality of management as documented Diagnoses Fracture of right hip S72.001A Fever R50.9 Seizure R56.9
[2024-08-30] MEDS: FUROsemide 10 mg/mL SDV 2mL 20 MG IVP (12:40)
--- NOTE | 2024-08-30 14:17 | P.PN_ITS ---
Subjective 2 Subjective: Patient seen evaluated at bedside. Pain controlled medications she once again is able to follow some simple commands for evaluation. Dressings on in place clean dry and intact. Will work with PT today. Vitals/I&O/Wt Last Vital Signs Temp 99.2 F 08/30/24 12:19 Pulse 85 08/30/24 12:19 Resp 18 08/30/24 14:05 BP 158/58 08/30/24 12:19 Pulse Ox 97 08/30/24 12:19 O2 Del Method Nasal Cannula 08/30/24 12:19 O2 Flow Rate 4 08/30/24 07:32 08/29/24 08/30/24 08/30/24 22:59 06:59 14:59 Intake Total 510 / 2588.5 290 / 2878.5 890 / 890 Output Total 1250 / 1525 300 / 1825 Balance -740 / 1063.5 -10 / 1053.5 890 / 890 Weight last 48 hrs Weight 165 lb 12.8 oz Weight 165 lb Physical Exam 2 Narrative: Examination of the right hip demonstrates dressings on in place clean dry intact normal postoperative swelling appreciated with subtle ecchymosis. Compartments are soft compressible patient is able to wiggle the toes plantarflex and dorsiflex ankle, patient nods to sensation intact light touch distally as well as distal pulses are palpable right lower extremity warm well-perfused. Urinary Catheter Management: Ramirez: Cath Placed During This Visit: yes, but has since been removed by the nurse Reason for Continuing Indwelling Catheter: Decision to DC Catheter Urinary Catheter Date of Insertion: 08/28/24 Urinary Catheter Time of Insertion: 09:50 Date Urinary Catheter Removed: 08/30/24 Time Urinary Catheter Discontinued: 10:13 Data 08/31/24 04:38 08/31/24 04:38 Other Labs: AM labs 08/30/2024 hemoglobin 8.4 Xray Ortho: Radiologist's impression: Ordering Provider/Ordering MD: Lei Macdonald Date of Service: 08/29/24 Procedure(s): XR hip RT 2-3V wo/w pel* [id number] Accession Number(s): [id number] Report Number: [id number] PROCEDURE INFORMATION: Exam: XR Right Hip Exam date and time: 08/29/2024 12:55 PM Age: 73 years old Clinical indication: Device placement; Other: R hip troch nail; Prior surgery; Surgery date: Post-operative (0-2 days); Additional info: S/P R hip troch nail TECHNIQUE: Imaging protocol: Radiologic exam of the right hip. Views: 1 view hip with pelvis when performed. COMPARISON: CR XR hip RT 2-3V wo/w pel* [id number] 08/28/2024 6:38 AM FINDINGS: Bones/joints: Status post open reduction and internal fixation of previously seen comminuted intertrochanteric fracture. Interval placement of a short intramedullary dominick and dynamic screw. Alignment is significantly improved. Persistent displaced avulsion fracture of the lesser trochanter. This is displaced up to 1.9 cm. Alignment at the right hip joint is normal. Left hip joint appears unremarkable. Symphysis pubis is normally aligned. Superior and inferior pubic rami are intact. Soft tissues: Postsurgical changes are present within the overlying soft tissues. XR/XR hip RT 2-3V wo/w pel* [id number] IMPRESSION: Status post interval open reduction and internal fixation of the previously seen comminuted and displaced intertrochanteric fracture. Interval placement of a short intramedullary dominick and dynamic screw. The alignment is significantly improved. Displaced avulsion fracture of the lesser trochanter persists. A&P Assessment and plan 1. Closed hip fracture requiring operative repair: Plan: Postoperative day 1 right hip trochanteric femur nail AM labs reviewed?8.4 hemoglobin patient received unit PRBC preop and a unit PRBC intraoperatively Postop x-rays reviewed stable right hip ORIF with trochanteric femur nail Weight-bear as tolerated right lower extremity Pain control DVT prophylaxis Internal medicine is primary PT/OT Case management on board for discharge plan Planning on SNF at discharge Orthopedics will continue to follow PDMP PDMP Reviewed: Not Reviewed Attestations 2 Medical Necessity Statement*: Ongoing care status post right hip ORIF with trochanteric femur nail Coding Level of Care Code Acute Code for Chg Fwd Diagnoses Closed hip fracture requiring operative repair S72.009A Time Spent (min) 10
[2024-08-30] MEDS: MELATONIN 3 MG TABLET PO (21:36)
[2024-08-30] MEDS: HYDROcodone-acetaminophen 5-325 mg Tablet 2 TAB PO (21:37)
[2024-08-31] VITALS (8 sets, daily range): BP systolic 130–134; BP diastolic 60–65; PULSE 87–99; RESP 16–18; TEMP 36.5–36.8; O2SAT 91–98
[2024-08-31] MEDS: morphine 4 mg/mL SDV 1 mL 2 MG IVP (02:16)
[2024-08-31 05:00] LABS: Hematocrit 27.3 % (36-47); Hemoglobin 8.40 g/dL (11.27-16.99); Mean Corpuscular HGB Conc 30.8 g/dL (30-55); Mean Corpuscular Hemoglobin 26.6 pg (27-33); Mean Corpuscular Volume 86.4 fl (85-98); Nucleated Red Blood Cells % 0 %; Platelet Count 257 10^3/cmm (157-399); Red Blood Count 3.16 10^6/uL (3.85-5.65); White Blood Count 8.39 10^3/uL (3.29-11.43)
[2024-08-31 05:26] LABS: Anion Gap 15.6 (5-19); Blood Urea Nitrogen 16 mg/dL (8-23); Calcium 9.0 mg/dL (8.5-10.5); Carbon Dioxide 27 mmol/L (22-29); Chloride 100 mmol/L (98-107); Creatinine Clr Calc Pharmacy 57.6887; Glucose 125 mg/dL (65-115); Osmolality Calculated 291 mOsm/kg (285-295); Potassium 3.6 mmol/L (3.5-5.1); Sodium 139 mmol/L (136-145)
[2024-08-31] MEDS: HYDROcodone-acetaminophen 5-325 mg Tablet 1 TAB PO (06:15)
[2024-08-31] MEDS: sennosides-docusate Tablet 2 TAB PO (08:01)
[2024-08-31] MEDS: multivitamin therapeutic Tablet 1 TAB PO (08:01)
[2024-08-31] MEDS: calcium carb-vit d 600mg/400unit 1 Tablet 1 EACH PO (08:01)
[2024-08-31] MEDS: mupirocin oint 22 gm 1 APPLIC NASAL (08:04)
[2024-08-31] MEDS: chlorhexidine gluconate 0.12% Btl 473 mL 30 ML MUCOUS MEM (08:04)
--- NOTE | 2024-08-31 09:04 | PM.DCS ---
Discharge Providers Date of Admission: 08/28/24 09:35 Date of Discharge: August 31, 2024 Attending Provider at Admission: Mike Wan Attending Provider at Discharge: Mike Wan Primary Care Provider: Mushtaq Watts DO Diagnoses at Discharge Discharge Diagnosis 1. Fracture of right hip: 2. Fever: 3. 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 She was brought from her [facility] to the ED after collapsing while ambulating; staff reported she raised her hands, attempted to speak, then fell, striking her head and exhibiting convulsions. The patient does not recall the event. On arrival she complained primarily of right hip pain. She reports recent muscle aches, runny nose, sore throat, and earlier nausea but denies current headache (later developed mild head pain), chest pain, cough, or diarrhea. Review of ED vitals showed BP 135/112 mmHg, HR 116 bpm, RR 22, temp 100.6 ?F, SpO? 94% on room air. CT head revealed no acute hemorrhage; right hip radiographs demonstrated a comminuted intertrochanteric fracture. Labs notable for WBC 13.9 K/?L, Hgb 9 g/dL, platelets 423 K/?L, glucose 199 mg/dL; chemistries and liver/renal panels otherwise unremarkable. The patient is confused at times but generally alert and oriented and no longer appears confused during my visit, she was pulling at lines during transport. Orthopedic surgery has been consulted; hip repair is anticipated tomorrow. She is aware of surgical risks given her cardiac disease and pulmonary comorbidities. Plans include viral swabs for her low-grade fever, pain control with Tylenol and stronger analgesics as needed, and possible neurology follow-up for first-time seizure. Hospital Course Hospital Course Workup on presentation included head CT which showed no acute intracranial hemorrhage or edema but showed numerous bilateral areas of decreased corresponding to prior acute infarcts described in March 2024. Superimposed additional small vessel disease and few small lacunar infarcts. She was maintained on seizure precautions, and did not have any further seizure episodes while in the hospital. Workup did not reveal an obvious source of infection with stable findings and unremarkable chest x-ray, unremarkable urinalysis, without any othe obvious infection. Respiratory viral panel was obtained and was negative. Possible minor aspiration after seizure. She has otherwise remained awake and alert, lucid, with otherwise stable chronic conditions including COPD and hypertension. Not in congestive heart exacerbation on presentation, although oxygen requirement did transiently increase after receiving IV hydration and RBC transfusion due to acute anemia with hemoglobin coming down to as low as 6.8. She received 2 units RBC transfusion with good response and hemoglobin staying stable since. Received IV Lasix doses. She underwent an uneventful ORIF of right intertrochanteric fracture on 08/29. She has needed pain medication for hip pain, and pain has been wearing her even before working with physical therapy. She is otherwise doing well and ready for progression to rehabilitation. She is referred for additional workup with outpatient EEG and follow-up with neurology. She just had a recent MRI and MRA in March. Physical Exam Narrative: Sitting up in chair. Right hip is bothering her with pain. Also states she is lactose intolerant. Added to list of allergies. Const: COMMON NORMALS: patient oriented x3 and alert GENERAL APPEARANCE: cooperative ORIENTATION/CONSCIOUSNESS: Yes awake HENMT: COMMON NORMALS: oropharynx normal Neck/C-Spine: COMMON NORMALS: no JVD Resp: COMMON NORMALS: normal respiratory effort and clear to auscultation bilaterally AUSCULTATION: clear to auscultation bilaterally Cardio: COMMON NORMALS: no JVD, regular rhythm, S1 normal heart sound present, S2 normal heart sound present and No murmurs present (Cardio) RHYTHM: regular rhythm HEART SOUNDS: S1 normal heart sound present and S2 normal heart sound present GI: COMMON NORMALS: Normal to inspection, nondistended, normoactive bowel sounds present, Soft to palpation and non-tender PALPATION: Yes Soft to palpation Extremity: COMMON NORMALS: no joint enlargement and no pedal edema Neuro: COMMON NORMALS: patient oriented x3 and moves all extremities SENSORIUM/ORIENTATION: Yes alert Skin: COMMON NORMALS: no rashes or lesions noted GENERAL SKIN EXAM: no rashes or lesions noted Urinary Catheter Management: Ramirez: Cath Placed During This Visit: yes, but has since been removed by the nurse Reason for Continuing Indwelling Catheter: Decision to DC Catheter Urinary Catheter Date of Insertion: 08/28/24 Urinary Catheter Time of Insertion: 09:50 Date Urinary Catheter Removed: 08/30/24 Time Urinary Catheter Discontinued: 10:13 Discharge Data Studies Completed and Pending Completed Studies During Hospitalization Category Date Time Status CT head wo con* [id number] Stat Cat Scan 08/28/24 08:07 Completed CXRP [XR chest 1V portable [id number]] Routine Exams 08/29/24 14:25 Completed XR chest 1V portable [id number] Stat Exams 08/28/24 08:42 Completed XR femur RT min 2V* [id number] Stat Exams 08/28/24 08:57 Completed XR hip RT 2-3V wo/w pel* [id number] Routine Exams 08/29/24 12:28 Completed XR hip RT 2-3V wo/w pel* [id number] Stat Exams 08/28/24 06:25 Completed XR knee RT 3V* [id number] Stat Exams 08/28/24 08:57 Completed Pending at discharge Category Date Time Status Basic Metabolic Panel AM LABS Lab 09/01/24 04:00 Ordered Complete Blood Count w/Auto AM LABS Lab 09/01/24 04:00 Ordered Occult Blood Stool [Immunochemical Fecal OCB] Routine Lab 08/29/24 09:25 Uncollected Radiology Impressions Head CT 08/28/24 08:07 IMPRESSION: 1. No acute intracranial hemorrhage or edema. 2. Numerous bilateral areas of decreased attenuation correspond to prior acute infarcts described on 03/18/2024. 3. Superimposed additional small vessel disease and a few small lacunar infarcts. Femur X-Ray 08/28/24 08:57 IMPRESSION: Comminuted intertrochanteric fracture right hip. Knee X-Ray 08/28/24 08:57 IMPRESSION: 1. Medial collateral ligament injury. 2. Degenerative changes of the joint space Hip/Pelvis X-Ray 08/29/24 12:28 IMPRESSION: Status post interval open reduction and internal fixation of the previously seen comminuted and displaced intertrochanteric fracture. Interval placement of a short intramedullary dominick and dynamic screw. The alignment is significantly improved. Displaced avulsion fracture of the lesser trochanter persists. Chest X-Ray 08/29/24 14:25 Impression: Atherosclerosis. Laboratory Results WBC 8.39 10^3/uL (3.29-11.43) 08/31/24 04:38 RBC 3.16 10^6/uL (3.85-5.65) L 08/31/24 04:38 Hgb 8.40 g/dL (11.27-16.99) L 08/31/24 04:38 Hct 27.3 % (36-47) L 08/31/24 04:38 MCV 86.4 fl (85-98) 08/31/24 04:38 MCH 26.6 pg (27-33) L 08/31/24 04:38 MCHC 30.8 g/dL (30-55) 08/31/24 04:38 RDW 16.3 % (12.1-15.1) H 08/31/24 04:38 Plt Count 257 10^3/cmm (157-399) 08/31/24 04:38 MPV 9.3 fL (7.4-10.4) 08/31/24 04:38 Neut % (Auto) 72.0 % 08/31/24 04:38 Lymph % (Auto) 13.8 % 08/31/24 04:38 Johnston % (Auto) 11.6 % 08/31/24 04:38 Eos % (Auto) 1.4 % 08/31/24 04:38 Baso % (Auto) 0.2 % 08/31/24 04:38 Neut # (Auto) 6.04 10^3/uL (1.8-7.7) 08/31/24 04:38 Lymph # (Auto) 1.2 10^3/uL (0.8-4.8) 08/31/24 04:38 Johnston # (Auto) 1.0 10^3/uL (0.2-0.9) H 08/31/24 04:38 Eos # (Auto) 0.1 10^3/uL (0.0-0.8) 08/31/24 04:38 Baso # (Auto) 0.0 10^3/uL (0.0-0.1) 08/31/24 04:38 Nucleated RBC % (auto) 0 % 08/31/24 04:38 Nucleated RBCs # 0.0 /100WBC 08/31/24 04:38 Sodium 139 mmol/L (136-145) 08/31/24 04:38 Potassium 3.6 mmol/L (3.5-5.1) 08/31/24 04:38 Chloride 100 mmol/L (98-107) 08/31/24 04:38 Carbon Dioxide 27 mmol/L (22-29) 08/31/24 04:38 Anion Gap 15.6 (5-19) 08/31/24 04:38 BUN 16 mg/dL (8-23) 08/31/24 04:38 Creatinine 0.5 mg/dL (0.5-0.9) 08/31/24 04:38 GFR Calculation Not Reportable 08/31/24 04:38 Glucose 125 mg/dL (65-115) H 08/31/24 04:38 Calculated Osmolality 291 mOsm/kg (285-295) 08/31/24 04:38 Calcium 9.0 mg/dL (8.5-10.5) 08/31/24 04:38 Magnesium 2.3 mg/dL (1.7-2.3) 08/28/24 06:00 Iron 21 ug/dL (37-145) L 08/29/24 06:25 TIBC 347 mcg/dl 08/29/24 06:25 % Saturation 6.0 % (20-50) L 08/29/24 06:25 Unsat Iron Binding 326 ug/dL (112-347) 08/29/24 06:25 Ferritin 26 ng/mL (15-150) 08/29/24 06:25 Total Bilirubin 0.2 mg/dL (0.15-1.2) 08/28/24 06:00 AST 14 U/L (0-32) 08/28/24 06:00 ALT 8 U/L (0-33) 08/28/24 06:00 Alkaline Phosphatase 102 U/L (35-105) 08/28/24 06:00 NT-Pro-B Natriuret Pep 306 pg/mL (0-450) 08/29/24 06:25 Total Protein 7.5 g/dL (6.6-8.7) 08/28/24 06:00 Albumin 3.8 g/dL (3.5-5.2) 08/28/24 06:00 Globulin 3.7 g/dL (1.3-4.6) 08/28/24 06:00 Urine Color Yellow (Yellow) 08/28/24 09:44 Urine Appearance Clear (CLEAR) 08/28/24 09:44 Urine pH 5.5 (5-7) 08/28/24 09:44 Ur Specific Holden 1.019 (1.005-1.030) 08/28/24 09:44 Urine Protein 1+ (Negative) A 08/28/24 09:44 Urine Glucose (UA) Negative (Normal) 08/28/24 09:44 Urine Ketones Negative (Negative) 08/28/24 09:44 Urine Blood Negative (Negative) 08/28/24 09:44 Urine Nitrate Negative (Negative) 08/28/24 09:44 Urine Bilirubin Negative (Negative) 08/28/24 09:44 Urine Urobilinogen 1.0 mg/dL (Negative) 08/28/24 09:44 Ur Leukocyte Esterase Trace (Negative) A 08/28/24 09:44 Urine RBC 3-5 /hpf (0-2) 08/28/24 09:44 Urine WBC 6-10 /hpf (0-5) 08/28/24 09:44 Ur Squamous Epith Cells 6-10 /hpf (0-5) 08/28/24 09:44 Amorphous Sediment Not Reportable 08/28/24 09:44 Urine Bacteria None seen /hpf (NONE) 08/28/24 09:44 Hyaline Casts 4.11 /lpf 08/28/24 09:44 Adenovirus (PCR) Not detected (NOT DETECT) 08/28/24 11:34 C. pneumoniae DNA (PCR) Not detected (NOT DETECT) 08/28/24 11:34 Coronavirus 229E (PCR) Not detected (NOT DETECT) 08/28/24 11:34 Human Metapneumovir PCR Not detected (NOT DETECT) 08/28/24 11:34 Influenza A (H1) PCR Not detected (NOT DETECT) 08/28/24 11:34 Influ A (H1/09) PCR Not detected (NOT DETECT) 08/28/24 11:34 Influenza A (H3) PCR Not detected (NOT DETECT) 08/28/24 11:34 Influenza Type A (PCR) Not detected (NOT DETECT) 08/28/24 11:34 Influenza Type B (PCR) Not detected (NOT DETECT) 08/28/24 11:34 M. pneumoniae (PCR) Not detected (NOT DETECT) 08/28/24 11:34 Parainfluenza 1 (PCR) Not detected (NOT DETECT) 08/28/24 11:34 Parainfluenza 2 (PCR) Not detected (NOT DETECT) 08/28/24 11:34 Parainfluenza 3 (PCR) Not detected (NOT DETECT) 08/28/24 11:34 Parainfluenza 4 (PCR) Not detected (NOT DETECT) 08/28/24 11:34 RSV Type A (PCR) Not detected (NOT DETECT) 08/28/24 11:34 RSV Type B (PCR) Not detected (NOT DETECT) 08/28/24 11:34 Entero/Rhino (PCR) Not detected (NOT DETECT) 08/28/24 11:34 SARS-CoV-2 (PCR) Not detected (NOT DETECT) 08/28/24 11:34 Blood Type O Positive 08/29/24 06:25 Rho(D) Type Rh positive 08/29/24 06:25 Antibody Screen Negative 08/29/24 06:25 Crossmatch See Detail 08/29/24 06:25 Vitals Last Vital Signs Temp 98.2 F 08/31/24 08:22 Pulse 99 08/31/24 08:22 Resp 17 08/31/24 08:22 BP 134/65 08/31/24 08:22 Pulse Ox 91 08/31/24 08:22 O2 Del Method Nasal Cannula 08/31/24 08:22 O2 Flow Rate 2 08/31/24 04:00 Discharge Plan Discharge Patient Disposition: er SNF Condition: Stable Prescriptions: New enoxaparin 40 mg/0.4 mL Syringe 40 mg SUBCUT Q24H 21 Days Qty: 8.4 0RF Continued potassium chloride 10 mEq capsule, extended release 10 meq PO DAILY loperamide 2 mg capsule See Rx Instructions .ROUTE .COMPLEX PRN (Reason: loose stools) Rx Instructions: Give 2 mg by mouth as needed for loose stools by nursing staff, greater than 24 hours in duration. Not received a laxative in the past 24 hours and not received an antibiotic within the past 2 weeks. furosemide [Lasix] 20 mg tablet 20 mg PO DAILY hydrocodone-acetaminophen 5-325 mg tablet 1 tab PO Q8H PRN (Reason: Pain) acetaminophen [Tylenol Extra Strength] 500 mg tablet 500 mg PO Q6H PRN (Reason: pain) Qty: 90 0RF Breztri Aerosphere 160-9-4.8 mcg/actuation HFA aerosol inhaler 2 inh inhalation BID Qty: 10.7 6RF nitroglycerin 0.4 mg tablet, sublingual 0.4 mg sublingual Q5M PRN (Reason: chest pain) Qty: 30 2RF Rx Instructions: do not exceed 3 doses per episode pantoprazole 40 mg tablet,delayed release (DR/EC) 40 mg PO DAILY aspirin 81 mg Tablet,Delayed Release (Dr/Ec) 81 mg PO DAILY Qty: 30 0RF acetaminophen 325 mg Tablet 650 mg PO BID citalopram 10 mg tablet 10 mg PO DAILY hydrocodone-acetaminophen 5-325 mg Tablet 2 tab PO BEDTIME ondansetron HCl 4 mg tablet 4 mg PO Q8H PRN (Reason: Nausea And Vomiting) magnesium hydroxide [Milk of Magnesia] 400 mg/5 mL Suspension 30 ml PO DAILY PRN (Reason: Constipation) melatonin 1 mg Tablet 1 mg PO BEDTIME Biofreeze (menthol) 4 % Gel 1 applic TOPICAL BID Ocuvite Adult 50 Plus 250 mg (90 mg-160 mg) Capsule 1 cap PO QAM metoprolol tartrate 100 mg tablet 100 mg PO DAILY nystatin 100,000 unit/gram cream 1 applic topical PRN PRN (Reason: Rash) Discharge Order = DC NOW: Discharge Order (Routine); Ordered 08/31/24 Ordered By: Mike Wan Other Ambulatory Orders: EEG electroencephalogram (Routine) Timeframe: 3 Days Facility: [facility] - Location: Neurology Ordered By: Mike Wan Referrals: [facility] [Outside] Katherine Dahl MD [Physician, Neurology] - 09/20/24 11:00 am Referral Note: Lei Macdonald DO [Physician, Orthopedics] - 09/18/24 3:15 pm Referral Note: Mushtaq Watts DO [Primary Care Provider, Internal Medicine] - 4-7 days Discharge Diet: Cardiac Discharge Activity: Limit activity as instructed, Use walker/crutches as instructed and As per PT/OT instructions Patient Instructions: Enoxaparin (By injection) (Lovenox), Acute Wound Care (DC), Fall Prevention (DC), ORIF of Hip Fracture (DC), Opioid Safety, Post Anesthesia Care, Patient Portal & Singh Instructions Activity Restrictions/Additional Instructions: Orthopedic discharge instructions: Weightbearing as tolerated to the operative extremity Ice as needed for pain and swelling Encourage knee and hip range of motion as tolerated PT/OT Take pain medication as prescribed Take antinausea medication as needed Supplement with Citracal vitamin D for bone health and healing Take Lovenox (blood thinner) as prescribed for blood clot prevention Take Colace as needed for constipation Leave Silverlon dressings on and in place for 7 days. After this they may be removed you may shower/rinse incisions with warm soapy water, pat dry redress with a dry dressing. Okay to sponge bath/shower with Silverlon dressings as they should be waterproof however if they do get saturated or wet please take these off dry the incision and redressed with a new dry sterile bandage. Follow-up in the orthopedic office with Dr. Macdonald in 2 weeks for repeat x-rays and incision check/staple removal Contact the office for any questions or concerns (i.e. increasing redness and drainage around the incision, fevers, or chills, or severe worsening in pain/change in symptoms) Please follow-up with your primary provider for reassessment in addition to orthopedic surgery. Continue 2 L nasal cannula oxygen, target oxygen saturation 92%. Weaning down and off oxygen. Have a primary provider follow-up your blood counts after acute anemia. Follow-up for outpatient EEG and with neurology after a possible seizure episode at the fpc. Follow-up with your primary provider regarding noted multiple small prior strokes. Avoid any NSAIDs. Continue aspirin. Return for reassessment as needed with neurology. Discharge Attestations Time Spent in Discharge Care*: greater than 30 min Quality Metrics Clinical Quality Measures [ No reported AMI, CVA or VTE this stay] Coding Level of Care Code 81536 Total time (in minutes) for Discharge: 40 Diagnoses Fracture of right hip S72.001A Fever R50.9 Seizure R56.9
--- NOTE | 2024-08-31 09:32 | P.PN_ITS ---
Subjective 2 Subjective: Patient seen evaluated today prior to discharge patient is taken shower she is ready discharge to SNF today. Stable from Ortho standpoint Vitals/I&O/Wt Last Vital Signs Temp 98.2 F 08/31/24 08:22 Pulse 99 08/31/24 08:22 Resp 17 08/31/24 08:22 BP 134/65 08/31/24 08:22 Pulse Ox 91 08/31/24 08:22 O2 Del Method Nasal Cannula 08/31/24 08:22 O2 Flow Rate 2 08/31/24 04:00 08/30/24 08/31/24 08/31/24 22:59 06:59 14:59 Intake Total 360 / 1250 120 / 120 Output Total 300 / 300 Balance 360 / 1250 -180 / -180 Weight last 48 hrs Weight 165 lb Weight 165 lb 12.8 oz Physical Exam 2 Narrative: Examination of the right hip demonstrates dressings on in place clean dry intact normal postoperative swelling appreciated with subtle ecchymosis. Compartments are soft compressible patient is able to wiggle the toes plantarflex and dorsiflex ankle, patient nods to sensation intact light touch distally as well as distal pulses are palpable right lower extremity warm well-perfused. Urinary Catheter Management: Ramirez: Cath Placed During This Visit: yes, but has since been removed by the nurse Reason for Continuing Indwelling Catheter: Decision to DC Catheter Urinary Catheter Date of Insertion: 08/28/24 Urinary Catheter Time of Insertion: 09:50 Date Urinary Catheter Removed: 08/30/24 Time Urinary Catheter Discontinued: 10:13 Data 08/31/24 04:38 08/31/24 04:38 A&P Assessment and plan 1. Closed hip fracture requiring operative repair: Plan: Postoperative day 2 right hip trochanteric femur nail AM labs reviewed?8.4 hemoglobin (patient received unit PRBC preop and a unit PRBC intraoperatively on 08/29/2024) Weight-bear as tolerated right lower extremity Pain control DVT prophylaxis Internal medicine is primary PT/OT Case management on board for discharge plan Planning on SNF at discharge Patient stable for discharge from orthopedic standpoint. Orthopedic surgery team will sign off patient at this time follow peripherally. If there is any question pertaining to patient's care feel free to contact orthopedics on-call. Appropriate discharge instructions placed in patient's chart as well as discharge DVT prophylaxis. Patient will follow-up in the orthopedic office in 2 weeks. PDMP PDMP Reviewed: Not Reviewed Attestations 2 Medical Necessity Statement*: Ongoing care status post right hip ORIF with trochanteric femur nail Coding Level of Care Code Acute Code for Chg Fwd Diagnoses Closed hip fracture requiring operative repair S72.009A Time Spent (min) 10
--- NOTE | 2024-08-31 10:31 | PC.NURSE ---
Report called to [facility].
--- NOTE | 2024-08-31 12:20 | PC.NURSE ---
Discharge Note Patient discharged to [facility] via [facility] transport accompanied by transport personnel. Discharge instructions reviewed with patient and/or residential sales representative. Mobile pharmacy medications and/or prescriptions provided. Belongings/home medications returned.
--- NOTE | 2024-08-31 13:38 | PC.SOCIAL ---
IMM Update pg 2 of IMM updated and reviewed w/ patient. Copy provided and copy dated, initialed and placed in chart.
== END 2024-08-31 11:45 | disposition skilled nursing facility (03) | DRG 480 ==
LOC: ER 08:09 → ER IP 09:35 → MEDSURG 14:04
PROVIDERS: Physician Assistant; Student in an Organized Health Care Education/Training Program; Admitting Provider Internal Medicine; Emergency Provider Family Medicine; PCP Internal Medicine; Visit Provider Internal Medicine
PROC: 0QS606Z Reposition Right Upper Femur with Intramedullary Internal Fixation Device, Open Approach (ICD-10-PCS; CPT 27245; principal; 2024-08-29 07:00)
DX: S72.141A Displaced intertrochanteric fracture of right femur, initial encounter for closed fracture (principal); I50.33 Acute on chronic diastolic (congestive) heart failure; W18.30XA Fall on same level, unspecified, initial encounter; Y92.129 Unspecified place in nursing home as the place of occurrence of the external cause; R50.9 Fever, unspecified; R56.9 Unspecified convulsions; G47.33 Obstructive sleep apnea (adult) (pediatric); D64.89 Other specified anemias; I35.1 Nonrheumatic aortic (valve) insufficiency; I11.0 Hypertensive heart disease with heart failure; J44.9 Chronic obstructive pulmonary disease, unspecified; G25.81 Restless legs syndrome; M48.062 Spinal stenosis, lumbar region with neurogenic claudication; M06.00 Rheumatoid arthritis without rheumatoid factor, unspecified site; F41.9 Anxiety disorder, unspecified; K21.9 Gastro-esophageal reflux disease without esophagitis; Z85.89 Personal history of malignant neoplasm of other organs and systems; Z92.3 Personal history of irradiation; Z86.73 Personal history of transient ischemic attack (TIA), and cerebral infarction without residual deficits; Z87.891 Personal history of nicotine dependence; Z79.82 Long term (current) use of aspirin
CPT/HCPCS: 36415; 36430; 51702; 70450; 71045; 73502; 73552; 73562; 76000; 80048; 80053; 81001; 82728; 83540; 83550; 83735; 83880; 85018; 85025; 86850; 86900; 86920; 87486; 87581; 87633; 93005; 94640; 96372; 96374; 96376; 97110; 97116; 97162; 97167; 97530; 99285; C1713; J0131; J0690; J1100; J1171; J1650; J1756; J1885; J1938; J2270; J2405; J2704; J3010; J3490; J7030; J9999; P9016; P9045; Q0162

== ENCOUNTER → 2024-09-18 15:10 | Outpatient (BNVA) | payer MEDICARE, MEDICAID, SELFPAY | PROVIDERS: PCP Internal Medicine; Visit Provider Physician Assistant | DX: S72.002A Fracture of unspecified part of neck of left femur, initial encounter for closed fracture (principal); X58.XXXA Exposure to other specified factors, initial encounter | CPT/HCPCS: 73502; 99024 ==

== ENCOUNTER 2024-10-14 07:27 | Emergency (ER) | payer MEDICARE, MEDICAID, SELFPAY ==
--- OUTSIDE RECORDS SUMMARY | 2024-03-21 04:00 | XMS_ITS ---
Author Organization [facility] Address [address] [place] [address] Care Team Providers Care Application Integration Architect Name Role Phone Inocencia Jaime Primary Care Provider INOCENCIA JAIME Unavailable Unavailable Antwan Dos Santos Unavailable [phone] REASON FOR VISIT 1 month f/u RK Problems Problem Type SNOMED Code ICD Code Onset Dates Problem Status W/U Status Risk Notes Problem Cervical radiculopathy (60332984) Cervical radiculopathy (M54.12) Active confirmed Problem Cervical spondylosis (590112313) Cervical spondylosis (M47.812) Active confirmed Problem Lumbosacral radiculopathy (6654591) L-S radiculopathy (M54.17) Active confirmed Problem Lumbosacral spondylosis (877371166) Lumbosacral spondylosis (M47.817) Active confirmed Encounters Encounter Location Date Provider Diagnosis [facility] [address] [address] 03/21/2024 Antwan Dos Santos Chronic pain syndrom e G89.4 ; Other cervical disc degeneration, unspecified cervical region M50.30 ; Cervical radiculopathy M54.12 ; Cervical spondylosis M47.812 ; Degeneration of intervertebral disc of lumbar region with discogenic back pain M51.360 ; L-S radiculopathy M54.17 ; Lumbosacral spondylosis M47.817 ; Trochanteric bursitis, right hip M70.61 ; Chronic kidney disease, stage 3b N18.32 and half-way (current) use of opiate analgesic Z79.891 Assessments [...] disease, stage 3b (ICD-10 - N18.32) 03/21/2024 half-way (current) use of opiate analgesic (ICD-10 - [...] of average pain . , ___ , 10 Severity of pain right now . , [...] sent for confirmation. , ___ , ___ [place] Prescription Monitoring Program . , ___ , [...] on 01/25 Sent to [facility] , ___ Past medication you have [...] Progress Notes * JOANN ESCALANTE EDOB: [birth year] (73 yo F)Acc No.[id number]:03/21/2024 Progress Notes Patient: JOANN GAXIOLA Provider: Fortino Dos Santos D.O. :1950 A ge:73 Y S ex:Female Date:03/21/2024 Address:[address] [place], [place] [id number] Pcp:Inocencia Jaime Subjective: * Chief Complaints: * 1 month [...] sent for confirmation. , ___ , ___. [place] Prescription Monitoring Program . 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 Date: 0 03/21/2024 Generated for Johnna pollard/Mitchell/Dakotaitting on: 0 10/14/2024 07:32 AM CDT
--- NOTE | 2024-10-14 07:28 | CTR_ITS ---
PROCEDURE INFORMATION: Exam: CT Head Without Contrast Exam date and time: 10/14/2024 7:30 AM Age: 73 years old Clinical indication: Stroke-like symptoms; Altered mental status/memory loss; Additional info: Symptoms of acute stroke TECHNIQUE: Imaging protocol: Computed tomography of the head without contrast. Radiation optimization: All CT scans at this facility use at least one of these dose optimization techniques: automated exposure control; mA and/or kV adjustment per patient size (includes targeted exams where dose is matched to clinical indication); or iterative reconstruction. Other technique: STROKE PROTOCOL was implemented. COMPARISON: CT head wo con* [id number] 08/28/2024 8:41 AM RADIATION DOSE METRICS: Total DLP (mGy-cm): 935.28 FINDINGS: Brain: There is moderate cerebral atrophy. There is moderate diffuse heterogeneity of the white matter attenuation, consistent with chronic white matter ischemic changes. Negative for acute intracranial hemorrhage. Negative for midline shift the brain. Left occipital lobe encephalomalacia redemonstrated. Cerebral ventricles: No ventriculomegaly. Paranasal sinuses: Visualized sinuses are unremarkable. No fluid levels. Mastoid air cells: Visualized mastoid air cells are well aerated. Bones: Unremarkable. No acute fracture. Soft tissues: Unremarkable. CT/CT head thrombolytic [id number] IMPRESSION: Negative for acute intracranial pathology. ASSESSMENT: ASPECTS ([place] Stroke Program Early CT Score) is 10.
--- NOTE | 2024-10-14 07:28 | ECG_ITS ---
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
--- OUTSIDE RECORDS SUMMARY | 2024-10-14 07:31 | XMS_ITS | Clinical Summary ---
Author Organization [facility] de Address [address] [place] [address] Phone Care Team Providers Care Software Developer Consultant Name Role Phone Unavailable Primary Care Provider [...]
--- OUTSIDE RECORDS SUMMARY | 2024-10-14 07:32 | XMS_ITS | Clinical Summary ---
Author Organization [facility] Address [address] 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
--- OUTSIDE RECORDS SUMMARY | 2024-10-14 07:32 | XMS_ITS | Patient Health Record ---
Author Organization [facility] Address [address] [place] [address] Care Team Providers Care Cat Driver Name Role Phone Inocencia Jaime Primary Care Provider INOCENCIA JAIME Unavailable Unavailable Migration, Provider Unavailable Unavailable Antwan Dos Santos Unavailable [phone] Merari Mcdonald Unavailable [phone] Allergies Allergen (clinical drug ingredient) Drug/Non Drug Allergy documented on EMR Reaction Allergy Type Onset Date Status amoxicillin / clavulanate Augmentin diarrhea Drug Allergy Active metronidazole Flagyl Unknown Drug Allergy Act alessandra ibuprofen Ibuprofen Unknown Drug Allergy Active Results Component Value Reference Range Notes Remote Monitoring (RPM): Blo od Pressure Reviewed date:10/24/2023 03:37:23 PM Interpretation: Performing Lab: Notes/Report: Remote Monitoring (RPM): Pul se Ox Reviewed date:10/24/2023 03:37:34 PM Interpretation: Performing Lab: Notes/Report: Remote Monitoring (RPM): Sca le Reviewed date:10/24/2023 03:37:46 PM Interpretation: Performing Lab: Notes/Report: Reason For [...] Duration: 30 Active Adults Multivitamin *Reorder fro [facility] for eRx and Interaction Alerts* Active Temazepam 15 MG Capsule 1 capsule at bedtime as needed Orally Once a day; Duration: 30 days 03/15/2023 Active BD Luer-Antonia Syringe 3 mL 25 x 5/8 USE DIRECTED FOR B-12 INJECTIONS *Reorder from [facility] for eRx and Interaction Alerts* Active [...] MOUTH EVERY MORNING; Duration: 90 Active Nystop 672906 UNIT/GM Powder APPLY TOPICALLY TWICE DAILY FOR [...] Refused Prevnar 20 IM Intramuscular 08/16/2022 Administered [facility]-00 [phone]- Patient tolerated well. Social History Tobacco [...] No Section Notes: 03-24-22 PHQ9 03-24-22 PHQ9 03-24-22 PHQ9 03-24-22 PHQ9 03-24-22 PHQ9 10/12/23 PHQ9 03-24-22 PHQ9 03-24-22 PHQ9 10/12/23 PHQ9 [...] PHQ9 03-24-22 PHQ9 10/12/23 PHQ9 03-24-22 PHQ9 Problems Problem Type SNOMED Code ICD Code Onset Dates Problem Status W/U Status Risk Notes Problem Tobacco user (923641222) Nicotine dependence, cigarettes, uncomplicated (F17.210) Active confirmed Problem Chronic pain syndrome (207044738) Chronic pain syndrome (G89.4) 07/21/19 Active confirmed Problem Hypertensive heart failure (49453828) Hypertensive heart disease with heart failure (I11.0) Active confirmed Problem Chronic obstructive pulmonary disease (05342035) Chronic obstructive pulmonary disease, unspecified (J44.9) 07/21/19 Active confirmed Problem Cervical spondylosis without myelopathy (030693176) Other spondylosis with radiculopathy, cervical region (M47.22) 07/21/19 Active confirmed Problem Lumbosacral spondylosis without myelopathy (47146984) Other spondylosis with radiculopathy, lumbosacral region (M47.27) 07/21/19 Active confirmed Problem Degeneration of cervical intervertebral disc (36601416) Other cervical disc degeneration, unspecified cervical region (M50.30) 07/21/19 Active confirmed Problem Degeneration of lumbar intervertebral disc (94739588) Other intervertebral disc degeneration, lumbar region (M51.36) 07/21/19 Active confirmed Problem Abnormal gait (37541515) Unspecified abnormalities of gait and mobility (R26.9) 07/21/19 Active confirmed Problem Personal history of primary malignant neoplasm of female genital organ (571234510) Personal history of malignant neoplasm of other female genital organs (Z85.44) 07/21/19 Active confirmed Problem History of fall (748348342) History of falling (Z91.81) Active confirmed Problem Cervical radiculopathy (53188355) Cervical radiculopathy (M54.12) Active confirmed Problem Anxiety (43618996) Anxiety (F41.9) Active confirmed Problem Neuropathy (537154114) Neuropathy (G62.9) Active confirmed Problem Lumbosacral spondylosis with radiculopathy (045872565) Lumbosacral spondylosis with radiculopathy (M47.27) Active confirmed Problem Sinusitis (92690408) Sinusitis (J32.9) Active confirmed Problem Insomnia (961426527) Insomnia (G47.00) Active confirmed Problem Cervical spondylosis (191489183) Cervical spondylosis (M47.812) Active confirmed Problem Degeneration of lumbosacral intervertebral disc (00389571) Disc degeneration, lumbosacral (M51.37) Active confirmed Problem Congestive heart failure (73133248) CHF (congestive heart failure) (I50.9) Active confirmed Problem Cervical disc disorder (588661745) DDD (degenerative disc disease), cervical (M50.30) Active confirmed Problem Depression (688694386) Depression (F32.9) Active confirmed Problem COPD - Chronic obstructive pulmonary disease (87058632) COPD (chronic obstructive pulmonary disease) (J44.9) Active confirmed Problem Ulcerative colitis (67940112) Ulcerative colitis (K51.90) Active confirmed Problem Acute exacerbation of chronic obstructive airways disease (617959625) COPD with acute exacerbation (J44.1) Active confirmed Problem Systemic lupus erythematosus (47797982) Systemic lupus erythematosus, unspecified SLE type, unspecified organ involvement status (M32.9) Active confirmed Problem Allergic rhinitis (12583340) Rhinitis, allergic (J30.9) Active confirmed Problem Rheumatoid arthritis (37340625) Rheumatoid arthritis (M06.9) Active confirmed Problem Recurrent falls (950040530) Falls frequently (R29.6) Active confirmed Problem Hypertension (77035666) Hypertension (I10) Active confirmed Problem Hyperlipidemia (53136636) Hyperlipidemia (E78.5) Active confirmed Problem Cervical spondylosis without myelopathy (185227685) Cervical spondylosis with radiculopathy (M47.22) Active confirmed Problem Chronic obstructive pulmonary disease (72528539) COPD, moderate (J44.9) Active confirmed Problem Lumbosacral spondylosis without myelopathy (36285450) Spondylosis of lumbar spine (M47.816) Active confirmed Problem Abnormal gait (67241593) Abnormality of gait and mobility (R26.9) Active confirmed Problem Skin sensation disturbance (08656740) Paresthesia of bilateral legs (R20.2) Active confirmed Problem Chronic kidney disease stage 3B (disorder) (660353262) Chronic kidney disease, stage 3b (N18.32) 07/21/19 24 Active confirmed Problem Chronic kidney disease stage 3B (disorder) (349704088) Stage 3b chronic kidney disease (N18.32) Active confirmed Problem Lumbosacral radiculopathy (0157177) L-S radiculopathy (M54.17) Active confirmed Problem History of cancer of vulva (309632350) History of cancer of vulva (Z85.44) Active confirmed Problem Lumbosacral spondylosis (962073706) Lumbosacral spondylosis (M47.817) Active confirmed Problem Food insecurity (924492548) Food insecurity (Z59.41) Active confirmed Problem Financial insecurity (2048174752) Financial insecurity (Z59.86) Active confirmed Vital Signs Heart Rate 84 /min 12/20/2023 Temperature 97.2 degrees Fahrenheit 12/20/2023 Respiratory Rate 20 /min 12/20/2023 Height-cm 165.1 cm 02/16/2024 Blood pressure diastolic 80 mm Hg 12/20/2023 Oximetry 99 % 12/20/2023 Weight-kg 74.84 kg 12/20/2023 Height 65 in 02/16/2024 Blood pressure systolic 160 mm Hg 12/20/2023 Weight 165 lbs 12/20/2023 BMI 27.45 kg/m2 12/20/2023 Encounters Encounter Location Date Provider Diagnosis [facility] [address] [address] 02/16/2024 Merari Mcdonald Chronic pain syndrom e G89.4 ; Other cervical disc degeneration, unspecified cervical region M50.30 ; Cervical radiculopathy M54.12 ; Cervical spondylosis M47.812 ; Degeneration of intervertebral disc of lumbar region with discogenic back pain M51.360 ; L-S radiculopathy M54.17 ; Lumbosacral spondylosis M47.817 ; Trochanteric bursitis, right hip M70.61 ; Chronic kidney disease, stage 3b N18.32 and intermediate (current) use of opiate analgesic Z79.891 [facility] [place] [address] [place] [address] 01/19/2024 Merari Mcdonald Chronic pain syndrom e G89.4 ; Other cervical disc degeneration, unspecified cervical region M50.30 ; Cervical radiculopathy M54.12 ; Cervical spondylosis M47.812 ; Degeneration of intervertebral disc of lumbar region with discogenic back pain M51.360 ; L-S radiculopathy M54.17 ; Lumbosacral spondylosis M47.817 ; Trochanteric bursitis, right hip M70.61 ; Chronic kidney disease, stage 3b N18.32 and intermediate (current) use of opiate analgesic Z79.891 [facility] [place] [address] [place] [address] 12/21/2023 Antwan Dos Santos Chronic pain syndrom e G89.4 ; DDD (degenerative disc disease), cervical M50.30 ; Cervical radiculopathy M54.12 ; Cervical spondylosis M47.812 ; L-S radiculopathy M54.17 ; Lumbosacral spondylosis M47.817 ; Greater trochanteric bursitis of right hip M70.61 ; Stage 3b chronic kidney disease N18.32 ; History of cancer of vulva Z85.44 and intermediate (current) use of opiate analgesic Z79.891 [facility] [address] [address] 12/20/2023 Inocencia Jaime Hypertension I10 ; Encounter for immunization Z23 and Immunization not carried out because of patient refusal Z28.[address] [address] 11/10/2023 Merari Mcdonald [facility] [address] [address] 11/07/2023 Inocencia Jaime Cellulitis of left lower extremity L03.116 and Bilateral leg edema R60.0 [facility] [address] [address] 11/01/2023 Inocencia Jaime Bilateral leg edema R60.0 ; Cellulitis of left lower extremity L03.116 and Need for RSV vaccination Z29.11 [facility] 0 12/04/2023 Provider Migration [facility] 0 12/03/2023 Provider Migration [facility] [place] 05/16/2024 Inocencia Jaime [facility] [place] 04/23/2024 Inocencia Jaime Hypertension I1 0 and Rheumatoid arthritis M06.9 [facility] [place] 03/14/2024 Inocencia Jaime Chronic pain sy ndrome G89.4 and Hypertension I10 [facility] [place] [address] [place] [address] 03/01/2024 Antwan Dos Santos Chronic pain syndrom e G89.4 [facility] [address] [place] [place] [address] 02/16/2024 Antwan Dos Santos Chronic pain syndrom e G89.4 [facility] [place] 02/13/2024 Inocencia Jaime Hyperlipidemia E78.5 and CHF (congestive heart failure) I50.9 [facility] [address] [place] [address] 01/19/2024 Antwan Dos Santos [facility] [place] [address] [place] [address] 01/19/2024 Antwan Dos Santos Chronic pain syndrom e G89.4 [facility] [place] 01/17/2024 Inocencia Jaime [facility] [place] 01/10/2024 Inocencia Jaime Hyperlipidemia E78.5 and Hypertension I10 [facility] [place] 01/10/2024 Inocencia Jaime Spondylosis of lumbar spine M47.816 [facility] [place] 12/12/2023 Inocencia Jaime Nicotine depend ence, cigarettes, uncomplicated F17.210 and COPD (chronic obstructive pulmonary disease) J44.[address] [address] 11/15/2023 Inocenciacristina Jaime [facility] [place] 11/10/2023 Inocencia Jaime Hypertension I1 0 and Hyperlipidemia E78.5 [facility] [place] 11/10/2023 Inocenciacristina Jaime [facility] [place] 10/19/2023 Inocenciacristina Jaime [facility] [place] 10/18/2023 Inocencia Jaime Hypertension I1 0 ; Hypertensive heart disease with heart failure I11.0 ; CHF (congestive heart failure) I50.9 ; COPD (chronic obstructive pulmonary disease) J44.9 ; Anxiety F41.9 and Depression F32.9 [facility] [place] 10/17/2023 Inocencia Jaime Hypertension I1 0 ; COPD (chronic obstructive pulmonary disease) J44.9 and CHF (congestive heart failure) I50.9 Assessments Encounter Date Diagnosis (ICD Code) Assessment Notes Treatment Notes Treatment Clinical Notes Section Notes 10/17/2023 Hypertension (ICD-10 - I10) 10/18/2023 Hypertension (ICD-10 - I10) 10/18/2023 Hypertensive heart disease with heart failure (ICD-10 - I11.0) Patient would benefit from Remote Patient Monitoring of blood pressure, heart rate, pulse ox and weight. 10/18/2023 CHF (congestive heart failure) (ICD-10 - I50.9) Patient would benefit from Remote Patient Monitoring of blood pressure, heart rate, pulse ox and weight. 11/01/2023 Bilateral leg edema (ICD-10 - R60.0) 11/01/2023 Cellulitis of left lower extremity (ICD-10 - L03.116) Recheck in 1 week. 11/07/2023 Cellulitis of left lower extremity (ICD-10 - L03.116) Recheck in 1 week. 12/21/2023 Chronic pain syndrome (ICD-10 - G89.4) [...] (degenerative disc disease), cervical (ICD-10 - M50.30) 11/10/2023 Hypertension (ICD-10 - I10) 12/12/2023 Nicotine dependence, cigarettes, uncomplicated (ICD-10 - F17.210) Deciding About Using Medicines To Quit Smoking material was published 12/20/2023 Hypertension (ICD-10 - I10) Monitor BP at home daily, recheck in 2 weeks. 01/10/2024 Spondylosis of lumbar spine (ICD-10 - M47.816) 01/10/2024 Hyperlipidemia (ICD-10 - E78.5) 01/19/2024 Chronic [...] 01/19/2024 Chronic pain syndrome (ICD-10 - G89.4) 02/13/2024 Hyperlipidemia (ICD-10 - E78.5) 04/23/2024 Hypertension (ICD-10 - I10) 04/23/2024 Rheumatoid arthritis (ICD-10 - M06.9) Rheumatoid Arthritis (RA): Care Instructions material was published 02/13/2024 CHF (congestive heart failure) (ICD-10 - I50.9) 02/16/2024 Cervical radiculopathy (ICD-10 - M54.12) 01/19/2024 Cervical radiculopathy (ICD-10 - M54.12) 01/10/2024 Hypertension (ICD-10 - I10) Low Sodium Diet (2,000 Milligram): Care Instructions material was published 12/20/2023 Encounter for immunization (ICD-10 - Z23) 12/12/2023 COPD (chronic obstructive pulmonary disease) (ICD-10 - J44.9) 11/10/2023 Hyperlipidemia (ICD-10 - E78.5) 12/21/2023 Cervical radiculopathy (ICD-10 - M54.12) 11/07/2023 Bilateral leg edema (ICD-10 - R60.0) 11/01/2023 Need for RSV vaccination (ICD-10 - Z29.11) 10/18/2023 COPD (chronic obstructive pulmonary disease) (ICD-10 - J44.9) Patient would benefit from Remote Patient Monitoring of blood pressure, heart rate, pulse ox and weight. 10/17/2023 COPD (chronic obstructive pulmonary disease) (ICD-10 - J44.9) 10/17/2023 CHF (congestive heart failure) (ICD-10 - I50.9) 10/18/2023 Anxiety (ICD-10 - F41.9) 12/21/2023 Cervical spondylosis (ICD-10 - M47.812) 12/20/2023 Immunization not carried out because of patient refusal (ICD-10 - Z28.21) 01/19/2024 Cervical spondylosis (ICD-10 - M47.812) 02/16/2024 Cervical spondylosis (ICD-10 - M47.812) 02/16/2024 Degeneration of intervertebral disc of lumbar region with discogenic back pain (ICD-10 - M51.360) 01/19/2024 Degeneration of intervertebral disc of lumbar region with discogenic back pain (ICD-10 - M51.360) 12/21/2023 L-S radiculopathy (ICD-10 - M54.17) 10/18/2023 Depression (ICD-10 - F32.9) Patient would benefit from Remote Patient Monitoring of blood pressure, heart rate, pulse ox and weight. 12/21/2023 Lumbosacral spondylosis (ICD-10 - M47.817) 01/19/2024 L-S radiculopathy (ICD-10 - M54.17) 02/16/2024 L-S radiculopathy (ICD-10 - M54.17) 02/16/2024 Lumbosacral spondylosis (ICD-10 - M47.817) 01/19/2024 Lumbosacral spondylosis (ICD-10 - M47.817) 12/21/2023 Greater trochanteric bursitis of right hip (ICD-10 - M70.61) 12/21/2023 Stage 3b chronic kidney disease (ICD-10 - N18.32) 01/19/2024 Trochanteric bursitis, right hip (ICD-10 - M70.61) 02/16/2024 Trochanteric bursitis, right hip (ICD-10 - M70.61) 02/16/2024 Chronic kidney disease, stage 3b (ICD-10 - N18.32) 01/19/2024 Chronic kidney disease, stage 3b (ICD-10 - N18.32) 12/21/2023 History of cancer of vulva (ICD-10 - Z85.44) 12/21/2023 intermediate (current) use of opiate analgesic (ICD-10 - Z79.891) 01/19/2024 intermediate (current) use of opiate analgesic (ICD-10 - Z79.891) 02/16/2024 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 Antwan Nassar, personally performed the services described in this documentation , as scribed by Nando Morel, and it is both accurate and complete. 11/10/2023 Other Cellulitis: Car e Instructions material was published 02/13/2024 Other Learning About Low-Fat Eating material was published 03/14/2024 Other Heart-Healthy Diet: Care Instructions material was published, A Healthy Heart: Care Instructions material was published Plan Of Treatment Pending Test Test Name Order Date Prothrombin Time 71476 01/13/2022 ABORh 08656, 27583 01/13/2022 Antibody Screen 13724 01/13/2022 Basic Metabolic Panel (BMP) 34018 2021 Basic Metabolic Panel (BMP) 29074 2021 Basic Metabolic Panel (BMP) 57571 2021 Basic Metabolic Panel (BMP) 58654 2021 Basic Metabolic Panel (BMP) 62126 2021 CBC w\ Auto Diff 89162 01/30/2022 CBC w\ Auto Diff 01754 01/29/2022 CBC w\ Auto Diff 83383 01/13/2022 Partial Thromboplastin Time 76806 2021 CBC Reflex Man Diff 29313, 94044 022 CBC Reflex Man Diff 47295, 50739 022 Chest PA/Lat-62894 01/20/2022 Chest PA/Lat-45921 01/13/2022 Lumbosacral Spine AP/Lat-57577 2 Lumbosacral Spine AP/Lat-22285 2 Electrocardiogram 12 Lead Tracing-08416 01/13/2022 WBC Auto Diff--99774 01/25/2022 WBC Auto Diff--75082 01/26/2022 BB ABORH-17630,08726 01/20/2022 zzzFluoro >1h4 01/25/2022 zzzMRI Outside CD 09/02/2021 zzzMRI Outside CD 09/02/2021 Future Test Test Name Order Date zzzUrine Drug Screen (confirmation by in strument) - 66316 02/20/2024 Insurance Providers Payer Name Payer Address Payer Phone Subscriber Number Group Number Insured Name Patient Relationship to Insured Coverage Start Date Coverage End Date [place] [address] [address] [facility] [address] [id number] JOANN ESCALANTE Self - patient is the insured [place] Medicaid [address] [place] [address] [id number] JOANN ESCALANTE Self - patient is the insured [employer] Replacement [address] [address] [place] [address] [id number] JOANN ESCALANTE Self - patient is the insured Medications Administered Medication Instructions Date of Administration Dosage Notes DEPO-Medrol 06/15/2023 40 mg [id number] 3-01 Patient tolerated well. dexAMETHasone 06/15/2023 4 mg [facility]-27607-6 423-00 Patient tolerated well. Ketorolac Tromethamine 05/17/2023 60 mg [id number] Patient tolerated well. dexAMETHasone 11/18/2022 8 mL [facility]-75563-4 423-00 Patient tolertated well. Medical (General) History Medical History History [...]
--- NOTE | 2024-10-14 07:39 | XRR_ITS ---
PROCEDURE INFORMATION: Exam: XR Chest Exam date and time: 10/14/2024 07:43 AM Age: 73 years old Clinical indication: Other: AMS; Additional info: CVA TECHNIQUE: Imaging protocol: Radiologic exam of the chest. Views: 1 view. COMPARISON: CR XR chest 1V portable [id number] 08/29/2024 02:31 PM and previous FINDINGS: Lungs: Low lung volumes. Pleural spaces: Blunting of the left costophrenic angle could be related to patchy airspace disease versus small left pleural effusion. This is similar to prior radiographs back to March 2024. Heart/Mediastinum: Persistent cardiomegaly. Vasculature: Atherosclerotic vascular disease. Bones/joints: Degenerative changes of the spine. XR/XR chest 1V portable [id number] IMPRESSION: 1. Low lung volumes. Cardiomegaly. 2. Atherosclerotic vascular disease. 3. Similar blunting of the left costophrenic angle when compared to the most recent x-rays.
[2024-10-14 07:45] VITALS: BP 172/96; PULSE 85; RESP 26; TEMP 36.6; O2SAT 82; BMI 29.2
[2024-10-14 07:47] LABS: Hematocrit 38.4 % (36-47); Hemoglobin 11.60 g/dL (11.27-16.99); Mean Corpuscular HGB Conc 30.2 g/dL (30-55); Mean Corpuscular Hemoglobin 28.5 pg (27-33); Mean Corpuscular Volume 94.3 fl (85-98); Nucleated Red Blood Cells % 0 %; Platelet Count 243 10^3/cmm (157-399); Red Blood Count 4.07 10^6/uL (3.85-5.65); White Blood Count 7.25 10^3/uL (3.29-11.43)
--- NOTE | 2024-10-14 07:59 | W.ED.GENADLT ---
HPI - General Adult General: Chief complaint: Seizure Stated complaint: POSSIBLE STROKE, UNABLE TO FORM WORDS Time Seen by Provider: 10/14/24 07:27 Source: EMS Mode of arrival: EMS Limitations: altered mental status History of Present Illness: 73-year-old female has a history of stroke in the past along with seizures here from correction for altered mental status per EMS patient was awake at 650 acting her normal self and order breakfast staff came in and patient was altered with snoring respirations EMS was called and stroke alert was called. Per EMS patient is now waking up but will not follow any commands here she is just moaning but moving all extremities Related Data Home Medications ?Medication ?Instructions ?Recorded ?Confirmed pantoprazole 40 mg tablet,delayed 40 mg PO DAILY 03/06/24 10/14/24 release furosemide 20 mg tablet (Lasix) 20 mg PO DAILY 08/20/24 10/14/24 loperamide 2 mg capsule See Rx Instructions .Route 08/20/24 10/14/24 .COMPLEX PRN loose stools potassium chloride 10 mEq 10 meq PO DAILY 08/20/24 10/14/24 capsule,extended release acetaminophen 325 mg tablet 650 mg PO BID pain 08/28/24 10/14/24 hydrocodone 5 mg-acetaminophen 325 2 tab PO BEDTIME Severe Pain 08/28/24 10/14/24 mg tablet (Scale Score 7-10) magnesium hydroxide 400 mg/5 mL 30 ml PO DAILY PRN Constipation 08/28/24 10/14/24 oral suspension (Milk of Magnesia) melatonin 1 mg tablet 1 mg PO BEDTIME 08/28/24 10/14/24 menthol 4 % topical gel (Biofreeze 1 applic topical BID 08/28/24 10/14/24 (menthol)) metoprolol tartrate 100 mg tablet 100 mg PO DAILY 08/28/24 10/14/24 [id number] 250 mg-dha 90 1 cap PO QAM 08/28/24 10/14/24 mg-epa 160 [id number] capsule (Ocuvite Adult 50 Plus) nystatin 100,000 unit/gram topical 1 applic topical Q12H PRN Rash 08/28/24 10/14/24 cream ondansetron HCl 4 mg tablet 4 mg PO Q8H PRN Nausea And Vomiting 08/28/24 10/14/24 buspirone 5 mg tablet 5 mg PO BID 10/14/24 10/14/24 hydrocodone 7.5 mg-acetaminophen 1 tab PO Q8H PRN Pain 10/14/24 10/14/24 325 mg tablet hydroxyzine HCl 25 mg tablet 12.5 mg PO Q8H PRN Anxiety 10/14/24 10/14/24 Previous Rx's ?Medication ?Instructions ?Recorded acetaminophen 500 mg tablet 500 mg PO Q6H PRN pain #90 tabs 03/10/22 (Tylenol Extra Strength) budesonide 160 mcg-glycopyr 9 2 inh inhalation BID #10.7 grams 02/15/23 mcg-formot 4.8 mcg/actuation HFA inhaler (Breztri Aerosphere) nitroglycerin 0.4 mg sublingual 0.4 mg sublingual Q5M PRN chest 09/06/23 tablet pain #30 tabs aspirin 81 mg tablet,delayed 81 mg PO DAILY #30 tabs 03/21/24 release levetiracetam 500 mg tablet 500 mg PO BID #60 tabs 10/14/24 (Keppra) Allergies Allergy/AdvReac Type Severity Reaction Status Date / Time metronidazole (From Flagyl) Allergy Intermediate Sores on Verified 10/14/24 08:22 legs lactose AdvReac Unknown Unknown Verified 10/14/24 08:22 Review of Systems General: Reports: ROS unobtainable due to mental status [facility] PFSH: Medical History (Updated 10/14/24 @ 08:49 by Brice Christianson MD) Aortic valve disease Sacroiliac (ligament) sprain Bony pelvic pain Mixed stress and urge incontinence RLS (restless legs syndrome) History of cancer of vulva s/p excision and radiation therapy Lumbar spondylosis History of PFTs 05/2020: normal spirometry and lung volumes; isolated gas transfer suggestive of pulmonary vascular disease Bright red blood per rectum Altered mental state Arm and leg movements, uncontrollable Hypertension Anxiety about health GERD (gastroesophageal reflux disease) Osteoarthritis of both hands Atherosclerosis of coronary artery Seronegative rheumatoid arthritis of both hands Lumbar stenosis with neurogenic claudication Congestive heart failure Diastolic High risk medication use COPD (chronic obstructive pulmonary disease) Sleep apnea She chose not to treat with CPAP RLS (restless legs syndrome) DDD (degenerative disc disease) Chronic pain pain clinic in [facility] Tobacco abuse 2 ppd all of her adult life, 45 + years. Aortic regurgitation mild to moderate Surgical History History of cardiac catheterization 07/2020: moderate left main, stenosis, FFR 0.94, no hemodynamically significant History of colonoscopy 07/2021 History of appendectomy History of hernia repair History of colon surgery H/O: hysterectomy Total Hysterectomy in 1970 History of lung surgery H/O hemorrhoidectomy H/O cataract extraction S/P carpal tunnel release History of bilateral carpal tunnel release Family History Mother Diabetes Heart disease Hypertension Hyperchloremia Stroke Father Alcohol abuse Sister Dementia Stroke Social History Smoking and tobacco/nicotine status: former use of tobacco/nicotine Quit status (tobacco/nicotine): has tried quititng Alcohol intake: former Substance/Drug Use: never Caregiver/support person: Yes Lives independently: Yes Household members: none Marital status: Highest education level completed: GED or Equivalent service: No Current occupational status: retired and disabled Pets and animals: No Do you think of yourself as: Straight/Heterosexual Current gender identity: Female Brenda/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: Ep[employer] Physical Exam Const: COMMON NORMALS: negative for patient oriented x3 HENMT: COMMON NORMALS: normocephalic and atraumatic HEAD & SCALP: normocephalic and atraumatic Eye: COMMON NORMALS: Equal, round and reactive pupils present and EOMs intact bilaterally PUPIL: Yes Equal, round and reactive pupils present Neck/C-Spine: COMMON NORMALS: full ROM and supple Chest: COMMONS NORMALS: normal inspection of the chest and normal palpation of entire chest wall Resp: COMMON NORMALS: normal respiratory effort, No retractions, No use of accessory muscles and clear to auscultation bilaterally AUSCULTATION: clear to auscultation bilaterally Cardio: COMMON NORMALS: regular rate, regular rhythm and No murmurs present (Cardio) RATE: regular rate RHYTHM: regular rhythm GI: COMMON NORMALS: Normal to inspection, nondistended, normoactive bowel sounds present, Soft to palpation, non-tender and no masses PALPATION: Yes Soft to palpation Extremity: COMMON NORMALS: normal to inspection and full ROM Neuro: COMMON NORMALS: moves all extremities and no focal motor deficits; negative for patient oriented x3 MOTOR EXAM: 5/5 motor strength present throughout Psych: COMMON NORMALS: mental status grossly normal, Normal thought process present and cooperative THOUGHT PROCESS: Normal thought process present Skin: COMMON NORMALS: no rashes or lesions noted and no wounds GENERAL SKIN EXAM: no rashes or lesions noted Course Reevaluation(s): Reevaluation #1: Patient is now becoming more alert she is answering my questions she is able to tell me name where she lives likely had had a seizure and was postictal Time: 08:01 Vital Signs: Vital signs: Vital Signs Temperature 97.9 F 10/14/24 07:45 Pulse Rate 74 10/14/24 08:23 Respiratory Rate 18 10/14/24 08:23 Blood Pressure 172/96 10/14/24 08:23 Pulse Oximetry 91 10/14/24 08:23 Oxygen Delivery Me thod Nasal Cannula 10/14/24 08:23 Oxygen Flow Rate 2 10/14/24 08:23 MDM - General Adult Medical Decision Making Patient presents here after likely seizure she is now at her baseline head CT is normal shows no signs of stroke her NIH currently is 0 no focal deficits she able to tell me her name she is stable for discharge back to correction. Medical Records I reviewed the patient's medical records. Lab Data I reviewed the patient's lab results. 10/14/24 07:42 10/14/24 07:[address] 10/14/24 07:28 IMPRESSION: Negative for acute intracranial pathology. ASSESSMENT: ASPECTS (Jessy Stroke Program Early CT Score) is 10. ADDENDUM: 10/14/2444 Findings were discussed with BRICE CHRISTIANSON at 10/14/2024 7:43 AM CDT. Chest X-Ray 10/14/24 07:39 IMPRESSION: 1. Low lung volumes. Cardiomegaly. 2. Atherosclerotic vascular disease. 3. Similar blunting of the left costophrenic angle when compared to the most recent x-rays. Laboratory Results WBC 7.25 10^3/uL (3.29-11.43) 10/14/24 07:42 RBC 4.07 10^6/uL (3.85-5.65) 10/14/24 07:42 Hgb 11.60 g/dL (11.27-16.99) 10/14/24 07:42 Hct 38.4 % (36-47) 10/14/24 07:42 MCV 94.3 fl (85-98) 10/14/24 07:42 MCH 28.5 pg (27-33) 10/14/24 07:42 MCHC 30.2 g/dL (30-55) 10/14/24 07:42 RDW 19.6 % (12.1-15.1) H 10/14/24 07:42 Plt Count 243 10^3/cmm (157-399) 10/14/24 07:42 MPV 8.6 fL (7.4-10.4) 10/14/24 07:42 Neut % (Auto) 48.5 % 10/14/24 07:42 Lymph % (Auto) 41.0 % 10/14/24 07:42 [place] % (Auto) 8.0 % 10/14/24 07:42 Eos % (Auto) 1.4 % 10/14/24 07:42 Baso % (Auto) 0.4 % 10/14/24 07:42 Neut # (Auto) 3.52 10^3/uL (1.8-7.7) 10/14/24 07:42 Lymph # (Auto) 3.0 10^3/uL (0.8-4.8) 10/14/24 07:42 [place] # (Auto) 0.6 10^3/uL (0.2-0.9) 10/14/24 07:42 Eos # (Auto) 0.1 10^3/uL (0.0-0.8) 10/14/24 07:42 Baso # (Auto) 0.0 10^3/uL (0.0-0.1) 10/14/24 07:42 Nucleated RBC % (auto) 0 % 10/14/24 07:42 Nucleated RBCs # 0.0 /100WBC 10/14/24 07:42 PT 13.40 SECONDS (12.1-14.9) 10/14/24 07:42 INR 0.95 (0.8-1.2) 10/14/24 07:42 APTT 23.8 SECONDS (23.9-36.7) L 10/14/24 07:42 Sodium 138 mmol/L (136-145) 10/14/24 07:42 Potassium 4.3 mmol/L (3.5-5.1) 10/14/24 07:42 Chloride 101 mmol/L (98-107) 10/14/24 07:42 Carbon Dioxide 19 mmol/L (22-29) L 10/14/24 07:42 Anion Gap 22.3 (5-19) H 10/14/24 07:42 BUN 22 mg/dL (8-23) 10/14/24 07:42 Creatinine 0.8 mg/dL (0.5-0.9) 10/14/24 07:42 GFR Calculation Not Reportable 10/14/24 07:42 Glucose 261 mg/dL (65-115) H 10/14/24 07:42 POC Glucose 211 mg/dL (70-110) H 10/14/24 08:04 Calculated Osmolality 298 mOsm/kg (285-295) H 10/14/24 07:42 Calcium 9.5 mg/dL (8.5-10.5) 10/14/24 07:42 Total Bilirubin 0.2 mg/dL (0.15-1.2) 10/14/24 07:42 AST 15 U/L (0-32) 10/14/24 07:42 ALT 10 U/L (0-33) 10/14/24 07:42 Alkaline Phosphatase 114 U/L (35-105) H 10/14/24 07:42 Total Protein 7.7 g/dL (6.6-8.7) 10/14/24 07:42 Albumin 4.1 g/dL (3.5-5.2) 10/14/24 07:42 Globulin 3.6 g/dL (1.3-4.6) 10/14/24 07:42 Urine Color Yellow (Yellow) 10/14/24 07:53 Urine Appearance Clear (CLEAR) 10/14/24 07:53 Urine pH 5.5 (5-7) 10/14/24 07:53 Ur Specific [place] 1.012 (1.005-1.030) 10/14/24 07:53 Urine Protein 3+ (Negative) A 10/14/24 07:53 Urine Glucose (UA) Negative (Normal) 10/14/24 07:53 Urine Ketones Negative (Negative) 10/14/24 07:53 Urine Blood Non-haemolysed trace (Negative) 10/14/24 07:53 Urine Nitrate Negative (Negative) 10/14/24 07:53 Urine Bilirubin Negative (Negative) 10/14/24 07:53 Urine Urobilinogen 0.2 mg/dL (Negative) 10/14/24 07:53 Ur Leukocyte Esterase Negative (Negative) 10/14/24 07:53 Urine RBC 3-5 /hpf (0-2) 10/14/24 07:53 Urine WBC 6-10 /hpf (0-5) 10/14/24 07:53 Ur Squamous Epith Cells 0-5 /hpf (0-5) 10/14/24 07:53 Amorphous Sediment Not Reportable 10/14/24 07:53 Urine Bacteria None seen /hpf (NONE) 10/14/24 07:53 Hyaline Casts 23.17 /lpf 10/14/24 07:53 Urine Mucus 1+ /hpf 10/14/24 07:53 Urine Opiates Screen Positive ng/mL (Negative) H 10/14/24 07:53 Ur Barbiturates Screen Negative ng/mL (Negative) 10/14/24 07:53 Ur Phencyclidine Scrn Negative ng/mL (Negative) 10/14/24 07:53 Ur Amphetamines Screen Negative ng/mL (Negative) 10/14/24 07:53 U Benzodiazepines Scrn Negative ng/mL (Negative) 10/14/24 07:53 Urine Cocaine Screen Negative ng/mL (Negative) 10/14/24 07:53 U Marijuana (THC) Screen Negative ng/mL (Negative) 10/14/24 07:53 All radiology interpretation(s) finalized by discharge EKG Data EKG 1: I personally reviewed and interpreted this EKG as follows: EKG interpretation date: 10/14/24 EKG interpretation time: 07:56 Interpretation: nsr hr [address] elevation qrs 87 qtc 396 Computer generated interpretation: Head CT 10/14/24 07:28 IMPRESSION: Negative for acute intracranial pathology. ASSESSMENT: ASPECTS (Jessy Stroke Program Early CT Score) is 10. ADDENDUM: 10/14/2444 Findings were discussed with BRICE CHRISTIANSON at 10/14/2024 7:43 AM CDT. Chest X-Ray 10/14/24 07:39 IMPRESSION: 1. Low lung volumes. Cardiomegaly. 2. Atherosclerotic vascular disease. 3. Similar blunting of the left costophrenic angle when compared to the most recent x-rays. Discharge Plan Discharge Patient Disposition: Home Clinical Impression: Generalized seizure Condition: Stable Prescriptions: New levetiracetam [Keppra] 500 mg tablet 500 mg PO BID Qty: 60 0RF No Action potassium chloride 10 mEq capsule, extended release 10 meq PO DAILY loperamide 2 mg capsule See Rx Instructions .ROUTE .COMPLEX PRN (Reason: loose stools) Rx Instructions: Give 2 mg by mouth as needed for loose stools by nursing staff, greater than 24 hours in duration. Not received a laxative in the past 24 hours and not received an antibiotic within the past 2 weeks. furosemide [Lasix] 20 mg tablet 20 mg PO DAILY acetaminophen [Tylenol Extra Strength] 500 mg tablet 500 mg PO Q6H PRN (Reason: pain) Qty: 90 0RF Breztri Aerosphere 160-9-4.8 mcg/actuation HFA aerosol inhaler 2 inh inhalation BID Qty: 10.7 6RF nitroglycerin 0.4 mg tablet, sublingual 0.4 mg sublingual Q5M PRN (Reason: chest pain) Qty: 30 2RF Rx Instructions: do not exceed 3 doses per episode pantoprazole 40 mg tablet,delayed release (DR/EC) 40 mg PO DAILY aspirin 81 mg Tablet,Delayed Release (Dr/Ec) 81 mg PO DAILY Qty: 30 0RF acetaminophen 325 mg Tablet 650 mg PO BID hydrocodone-acetaminophen 5-325 mg Tablet 2 tab PO BEDTIME Rx Instructions: if within 4 hours of prn dose, only give 1 tablet. ondansetron HCl 4 mg tablet 4 mg PO Q8H PRN (Reason: Nausea And Vomiting) magnesium hydroxide [Milk of Magnesia] 400 mg/5 mL Suspension 30 ml PO DAILY PRN (Reason: Constipation) melatonin 1 mg Tablet 1 mg PO BEDTIME Biofreeze (menthol) 4 % Gel 1 applic TOPICAL BID Ocuvite Adult 50 Plus 250 mg (90 mg-160 mg) Capsule 1 cap PO QAM metoprolol tartrate 100 mg tablet 100 mg PO DAILY nystatin 100,000 unit/gram cream 1 applic topical Q12H PRN (Reason: Rash) buspirone 5 mg Tablet 5 mg PO BID hydrocodone-acetaminophen [[place]] 7.5-325 mg Tablet 1 tab PO Q8H PRN (Reason: Pain) hydroxyzine HCl 25 mg Tablet 12.5 mg PO Q8H PRN (Reason: Anxiety) Discharge Orders: Discharge ED (Routine); Ordered 10/14/24 Ordered By: Brice Christianson Referrals: Mushtaq Watts DO [Primary Care Provider, Internal Medicine] Discharge Diet: Advance as tolerated Discharge Activity: Resume usual activity Patient Instructions: Recurrent Seizures in Adults (ED) Print Language: German Coding Level of Care Code ED Insurance Case Manager for Chg Fwd NIH stroke score NIHSS Level Of Consciousness - 1a: 0 Level Of Consciousness Questions - 1b: Neither Correct Level Of Consciousness Commands - 1c: Neither Correct Best Gaze - 2: Normal Visual Ayoub - 3: No Visual Loss Facial Palsy - 4: Normal Motor Arm Right - 5: No Drift Motor Arm Left - 5: No Drift Motor Leg Right - 6: No Drift Motor Leg Left - 6: No Drift Limb Ataxia - 7: Absent Sensory - 8: Normal Best Language - 9: Mild/Moderate Aphasia Dysarthia - 10: Normal Extinction And Inattention - 11: 0 Score Total Score: 5
[2024-10-14 08:01] LABS: INR 0.95 (0.8-1.2); Prothrombin Time 13.40 SECONDS (12.1-14.9)
[2024-10-14 08:02] LABS: Partial Thromboplastin Time 23.8 SECONDS (23.9-36.7)
[2024-10-14 08:04] LABS: Glucose Urine UA Negative (Normal); Nitrate Urine Negative (Negative); Specific Gravity, Urine 1.012 (1.005-1.030)
[2024-10-14 08:07] LABS: Alanine Aminotransferase 10 U/L (0-33); Albumin Level 4.1 g/dL (3.5-5.2); Alkaline Phosphatase 114 U/L (35-105); Anion Gap 22.3 (5-19); Aspartate Amino Transferase 15 U/L (0-32); Blood Urea Nitrogen 22 mg/dL (8-23); Calcium 9.5 mg/dL (8.5-10.5); Carbon Dioxide 19 mmol/L (22-29); Chloride 101 mmol/L (98-107); Globulin 3.6 g/dL (1.3-4.6); Glucose 261 mg/dL (65-115); Osmolality Calculated 298 mOsm/kg (285-295); Potassium 4.3 mmol/L (3.5-5.1); Sodium 138 mmol/L (136-145); Total Protein 7.7 g/dL (6.6-8.7)
[2024-10-14 08:09] LABS: Add Urine Microscopic? YES
[2024-10-14 08:12] LABS: PCP Screen Urine Negative (Negative)
[2024-10-14 08:21] LABS: UA Slide Review UA Slide Review Perf
[2024-10-14 08:23] VITALS: BP 172/96; PULSE 74; RESP 18; O2SAT 91
[2024-10-14 09:00] VITALS: BP 160/66; PULSE 78; RESP 19; O2SAT 93
[2024-10-14 09:45] VITALS: BP 142/95; PULSE 57; RESP 17; O2SAT 97
[2024-10-14] MEDS: HYDROcodone-acetaminophen 5-325 mg Tablet 1 TAB PO (10:22)
[2024-10-14 10:25] VITALS: BP 105/73; PULSE 61; RESP 28; O2SAT 92
== END 2024-10-14 10:25 | disposition home or self-care (01) ==
PROVIDERS: Emergency Provider Emergency Medicine; PCP Internal Medicine
DX: G40.89 Other seizures (principal); Z79.82 Long term (current) use of aspirin; Z87.891 Personal history of nicotine dependence; J44.9 Chronic obstructive pulmonary disease, unspecified; I25.10 Atherosclerotic heart disease of native coronary artery without angina pectoris; I11.0 Hypertensive heart disease with heart failure; I50.30 Unspecified diastolic (congestive) heart failure
CPT/HCPCS: 36415; 36416; 70450; 71045; 80053; 80306; 81001; 82962; 85025; 85610; 85730; 93005; 99285; 99291; J9999

== ENCOUNTER → 2024-10-30 16:07 | Outpatient (BNVA) | payer MEDICARE, MEDICAID, SELFPAY | PROVIDERS: PCP Internal Medicine; Visit Provider Physician Assistant | DX: Z98.890 Other specified postprocedural states (principal) | CPT/HCPCS: 73502; 99024 ==

== ENCOUNTER 2024-12-15 14:48 | Emergency (ER) | payer MEDICARE, MEDICAID, SELFPAY ==
--- OUTSIDE RECORDS SUMMARY | 2024-03-21 03:00 | XMS_ITS ---
Author Organization [facility] Address [address] [place] [address] Care Team Providers Care Sand Caster Name Role Phone Antwan Dos Santos Unavailable [phone] REASON FOR VISIT 1 month f/u RK Problems Problem Type SNOMED Code ICD Code Onset Dates Problem Status W/U Status Risk Notes Problem Cervical radiculopathy (75551668) Cervical radiculopathy (M54.12) Active confirmed Problem Cervical spondylosis (006209706) Cervical spondylosis (M47.812) Active confirmed Problem Lumbosacral radiculopathy (0671001) L-S radiculopathy (M54.17) Active confirmed Problem Lumbosacral spondylosis (307964861) Lumbosacral spondylosis (M47.817) Active confirmed Encounters Encounter Location Date Provider Diagnosis [facility] [address] [address] 03/21/2024 Antwan Dos Santos Chronic pain syndrom e G89.4 ; Other cervical disc degeneration, unspecified cervical region M50.30 ; Cervical radiculopathy M54.12 ; Cervical spondylosis M47.812 ; Degeneration of intervertebral disc of lumbar region with discogenic back pain M51.360 ; L-S radiculopathy M54.17 ; Lumbosacral spondylosis M47.817 ; Trochanteric bursitis, right hip M70.61 ; Chronic kidney disease, stage 3b N18.32 and [facility] (current) use of opiate analgesic Z79.891 Assessments Encounter Date Diagnosis (ICD Code) Assessment Notes Treatment Notes Treatment Clinical Notes Section Notes 03/21/2024 Chronic pain syndrome (ICD-10 - G89.4) 03/21/2024 Other cervical disc degeneration, unspecified cervical region (ICD-10 - M50.30) 03/21/2024 Cervical radiculopathy (ICD-10 - M54.12) 03/21/2024 Cervical spondylosis (ICD-10 - M47.812) 03/21/2024 Degeneration of intervertebral disc of lumbar region with discogenic back pain (ICD-10 - M51.360) 03/21/2024 L-S radiculopathy (ICD-10 - M54.17) 03/21/2024 Lumbosacral spondylosis (ICD-10 - M47.817) 03/21/2024 Trochanteric bursitis, right hip (ICD-10 - M70.61) 03/21/2024 Chronic kidney disease, stage 3b (ICD-10 - N18.32) 03/21/2024 [facility] (current) use of opiate analgesic (ICD-10 - Z79.891) Plan Of Treatment No Information History and Physical Notes * HPI (History of Present Illness) Category Sub-Category Detail Notes Category Not es Provider Note Patient presen ts today for 1 month follow-up. She continues with hydrocodone 10/325 3/day which is partially effective. She continues with a lot of neck and lower back pain and states that she is scheduled for her MRIs on the . Last UDS is consistent. Pill count is accurate today. UDS was collected today and will be sent to lab for reference. We will review results with patient at next visit. PDMP was reviewed and found to be compliant with care. The patient presents today for 1 month follow-up. She is currently prescribed hydrocodone 10/325 3/day which is partially effective. She continues to have neck and lower back pain as well as some radicular symptoms. Last UDS is consistent. UDS was collected today and will be sent to lab for reference. We will review results with patient at next visit. Pill count is accurate today. PDMP was reviewed and found to be compliant with care. Pain Details Pain Location . , ___ , neck, left arm, mid back, left shoulder, lower back, right leg Quality . , ___ , Sharp, Sta bbing, Dull, Aching Severity of pain at its worst . , ___ , 9/10 Severity of pain at its best . , ___ , 7 /10 Severity of average pain . , ___ , 810 Severity of pain right now . , ___ , 09/07 0 Severity of pain on medication . , ___ , 07/17 When did you last take your pain medicin e . , ___ , today Medication Details Do you have a lock b ox or safe place for medication away from minors and/or others? Yes , Yes , Yes Do you have any leftover pain medication building up at your house? No , No , No Do you understand that pain medication can be addicting and can cause overdose? Yes , Yes , Yes Do you feel you can REDUCE the amount of medication you take today? No , No , No Opioid Assessment Tools Pill Count . , ___ , ___, Essentially consistent pill count at today's visit (within 1 to 2 days of expected) Last Urine Drug Screen UDS ordered on but no sample received --Last Confirmation 10/13/23 , shows consistent with prescribed medication , ___ , 10/13/2023, shows consistent with prescribed medication Today's Rapid Urine Drug Screen will be sent for confirmation. , ___ , ___ [place] Prescription Monitoring Program . , ___ , ___ COMM (Current Opioid Misuse Measure) . , ___ , ___, Greater than 9 : indicates high risk of abuse behaviors and will be placed on high-risk monitoring. We will monitor every visit with urine drug screening and pill counts, as well as a minimum of 2-3 random urine drug screens per year Treatment History Test undergone in the past Ord ers for Lumbar and Cervical MRI on 01[facility] , ___ Past medication you have taken Hydrocodo ne 10 #90 filled , ___ , ___ Treatments you have had 09/13/2023 R SI --01/26/23 R GTB --06/08/21 LESI L4-5 , ___ Examination Category Sub-Category Detail Notes Category Not es General Examination Constitutional: Patient appears to be appropriate looking for stated age, obese. Patient is awake, alert and oriented to person, place and time with recent/ remote memory intact. in no acute distress noted. HEENT: Atraumatic, Normocephalic,Pupils grossly normal on inspection. Respiratory: Visual Inspection: breathing equal bilaterally, trachea midline. Cardiovascular: Cardiac rhythm is regular. Cervical Spine: Loss of normal lordosis. Generalized tenderness of paraspinals and facet joints with a few trigger points present. ROM is very restricted throughout with pain. + Kemps b/l Lumbar Spine: Inspection of the lumbar spine reveals loss of normal lordosis with no obvious scoliosis or asymmetry noted. Palpation of the lumbar facets reproduced back pain. Range of Motion: Reduced ROM in all directions with pain at end points Lumbar spine: b/l paraspinal muscle tightness. Joints- Hips/ SI Joint: SI Joint Palpation : + right greater trochanteric bursa tenderness Neurology - Mental Status: Mood and affect appear to be normal. Neurology - Coordination: Patient has antalgic gait with a straight cane Neurology - Straight Leg Raising: Right: 60 degrees and negative. Left: 60 degrees and negative. Neurology - Motor Strength: B/L UE strength 4+/5 Left LE strength - Flexors: 4+/5. Right LE strength - Flexors: 4+/5. Left LE strength - Extensors: 4+/5. Right LE strength - Extensors: 4+/5. Left LE Tone: Normal. Right LE Tone: Normal. Neurology - Deep Tendon Reflexes: Left biceps (DTR): 2. Right biceps (DTR): 2. Left triceps (DTR): 2. Right triceps (DTR): 2. Left brachioradialis (DTR): 2. Right brachioradialis (DTR): 2. Left patellar (DTR): 1. Right patellar (DTR): 1. Left achilles (DTR): 0. Right achilles (DTR): 0 Sensation grossly intact, dysesthesias in b/l C6-7 and R L4-5 distributions Progress Notes * JOANN ESCALANTE EDOB: [birth year] (74 yo F)Acc No.[id number]:03/21/2024 Progress Notes Patient: JOANN GAXIOLA Provider: Fortino Dos Santos D.O. :1950 A ge:73 Y S ex:Female Date:03/21/2024 Address:[address] [place], [place] [address], [id number] Subjective: * Chief Complaints: * 1 month f/u RK * HPI: P ain Details: Pain Location . , ___ , neck, left arm, mid back, left shoulder, lower back, right leg. Quality . , ___ , Sharp, Stabbing, Dull, Aching. Severity of pain at its worst . , ___ , 10/17. Severity of pain at its best . , ___ , 08/16. Severity of pain on medication . , ___ , 07/17. Severity of average pain . , ___ , 09/16. Severity of pain right now . , ___ , 09/16. When did you last take your pain medicine . , ___ , today.? M edication Details: Do you have a lock box or safe place for medication away from minors and/or others? Y es , Yes , Yes. Do you have any leftover pain medication building up at your house? N o , No , No. Do you understand that pain medication can be addicting and can cause overdose? Y es , Yes , Yes. Do you feel you can REDUCE the amount of medication you take today? N o , No , No. O pioid Assessment Tools: COMM (Current Opioid Misuse Measure) . , ___ , ___, Greater than 9 : indicates high risk of abuse behaviors and will be placed on high-risk monitoring. We will monitor every visit with urine drug screening and pill counts, as well as a minimum of 2-3 random urine drug screens per year. Pill Count . , ___ , ___, Essentially consistent pill count at today's visit (within 1 to 2 days of expected). Last Urine Drug Screen U DS ordered on 02/15 but no sample received -- Last Confirmation 10/13/23 , shows consistent with prescribed medication , ___ , 10/13/2023, shows consistent with prescribed medication. Today's Rapid Urine Drug Screen w ill be sent for confirmation. , ___ , ___. [place] Prescription Monitoring Program . , ___ , ___.? T reatment History: Test undergone in the past O rders for Lumbar and Cervical MRI on 01/25 Sent to [facility] , ___. Past medication you have taken H ydrocodone 10 #90 filled , ___ , ___. Treatments you have had 0 09/13/2023 R SI -- 1 03/29/22 R GTB -- 0 06/08/21 LESI L4-5 , ___. P key Note: Patient presents today for 1 month follow-up. She continues with hydrocodone 10/325 3/day which is partially effective. She continues with a lot of neck and lower back pain and states that she is scheduled for her MRIs on the . Last UDS is consistent. Pill count is accurate today. UDS was collected today and will be sent to lab for reference. We will review results with patient at next visit. PDMP was reviewed and found to be compliant with care. The patient presents today for 1 month follow-up. She is currently prescribed hydrocodone 10/325 3/day which is partially effective. She continues to have neck and lower back pain as well as some radicular symptoms. Last UDS is consistent. UDS was collected today and will be sent to lab for reference. We will review results with patient at next visit. Pill count is accurate today. PDMP was reviewed and found to be compliant with care. * ROS: G eneral - Multi System: Constitutional D enies, f ever, recent weight gain, recent weight loss, fatigue. R espiratory D enies, wheezing, shortness of breath, cough, snoring. G astrointestinal D enies, nausea, vomiting, constipation, abdominal pain. P sychiatric D enies, , anxiety, depression, panic attacks, suicidal thoughts. 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 * Surgical History: Foot Sx Face Cysts Hernia Repair Partial Hysterectomy Vulva Cancer Throat Scrape bilateral foot surgery Cataract surgery Hysterectomy Nasal Stent Thoracotomy Toe nail removal Vocal cord surgery * Family History: F ather: unknown, CHF. M other: 50 yrs, CHF. S iblings: alive, Strokes. M igrated Family History: : Cancer,Diabetes,Heart disease,Rheumatoid arthritis,Stroke,Tuberculosis,Vascular disease. Grandparents- Stomach Cancer ,Heart. Objective: * Examination: G eneral Examination: Constitutional: Patient appears to be appropriate looking for stated age, obese. Patient is awake, alert and oriented to person, place and time with recent/ remote memory intact. in no acute distress noted. HEENT: Atraumatic, Normocephalic,Pupils grossly normal on inspection. Respiratory: Visual Inspection: breathing equal bilaterally, trachea midline. Cardiovascular: Cardiac rhythm is regular. C ervical Spine: Loss of normal lordosis. Generalized tenderness of paraspinals and facet joints with a few trigger points present. ROM is very restricted throughout with pain. + Kemps b/l Lumbar Spine: Inspection of the lumbar spine reveals loss of normal lordosis with no obvious scoliosis or asymmetry noted. Palpation of the lumbar facets reproduced back pain. Range of Motion: Reduced ROM in all directions with pain at end points Lumbar spine: b/l paraspinal muscle tightness. Joints- Hips/ SI Joint: SI Joint Palpation : + right greater trochanteric bursa tenderness Neurology - Mental Status: Mood and affect appear to be normal. Neurology - Coordination: Patient has antalgic gait with a straight cane Neurology - Straight Leg Raising: Right: 60 degrees and negative. Left: 60 degrees and negative. Neurology - Motor Strength: B/L UE strength 4+/5 Left LE strength - Flexors: 4+/5. Right LE strength - Flexors: 4+/5. Left LE strength - Extensors: 4+/5. Right LE strength - Extensors: 4+/5. Left LE Tone: Normal. Right LE Tone: Normal. Neurology - Deep Tendon Reflexes: Left biceps (DTR): 2. Right biceps (DTR): 2. Left triceps (DTR): 2. Right triceps (DTR): 2. Left brachioradialis (DTR): 2. Right brachioradialis (DTR): 2. Left patellar (DTR): 1. Right patellar (DTR): 1. Left achilles (DTR): 0. Right achilles (DTR): 0 Sensation grossly intact, dysesthesias in b/l C6-7 and R L4-5 distributions. Assessment: * Assessment: 1. C hronic pain syndrome - G89.4 (Primary) 2 . O ther cervical disc degeneration, unspecified cervical region - M50.30 3 . C ervical radiculopathy - M54.12 4 . C ervical spondylosis - M47.812 5 . D egeneration of intervertebral disc of lumbar region with discogenic back pain - M51.360 6 . L -S radiculopathy - M54.17 7 . L umbosacral spondylosis - M47.817 8 . T rochanteric bursitis, right hip - M70.61 9 . C hronic kidney disease, stage 3b - N18.32 1 0. L farideh term (current) use of opiate analgesic - Z79.891? 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 Date: 0 03/21/2024 Generated for Johnna pollard/Mitchell/Mary Lou on: 1 02/15/2024 02:53 PM PIT CRANE OPERATOR
--- OUTSIDE RECORDS SUMMARY | 2024-12-15 14:53 | XMS_ITS | Clinical Summary ---
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
--- OUTSIDE RECORDS SUMMARY | 2024-12-15 14:54 | XMS_ITS | Data Portability ---
Author Organization [facility] - [facility] Easley [facility] Gilles Walker [facility] Address [address] [address] Assessment No assessment recorded. Plan of Treatment Reminders Order Date Submit Date Provider Last Modified By Organization Details Last Modified Time Details Appointments None record ed. Lab None record ed. Referral None record ed. Procedures None record ed. Surgeries None record ed. Imaging None record ed. Medication Orders None record ed. Patient TargetsNo targets recorded. Patient Instructions Encounter Date Encounter Id Patient Instructions Last Modified By Organization Details Last Modified Time 09/03/2024 [id number] Seizure-like activity at the facility resulted in a fall out of the wheelchair, causing a right hip fracture. No seizures at the hospital. EEG and neuro consult negative. Surgical repair was done for the fracture, and post-op anemia required 2 units. On lovenox . Labs Tuesday. Increase norco to q 6 prn x 2 weeks. [email or web address] Not available 09/05/2024 12:03:48 09/12/2024 [id number] Tx with nystatin cream. Anxiety worse, discussed risk with ativan. Agree to d/c celexa and start buspar. [email or web address] Not available 09/12/2024 14:05:05 10/03/2024 [id number] increased pain i n right hip, reports she is worried she damaged it further after recent fracture. Will get xray. [email or web address] Not available 10/03/2024 15:31:49 10/22/2024 [id number] still struggling emotionally; buspar has not helped; will start lexapro 5mg daily. [email or web address] Not available 10/22/2024 15:23:57 10/24/2024 [id number] hasn't started o n lexapro yet as it has not been delivered from pharmacy. Agree to stop norco and start ativan 0.5mg bid prn x 3 weeks while lexapro builds up in system. [email or web address] Not available 10/24/2024 14:01:36 Reason for Referral None Reported. Problems Name Problem SNOMED Code Status Onset Date Resolution Date Notes Provider Name and Address Organization Details Recorded Time Chronic obstructive pulmonary disease 21125645 Active 2024 CAILIN GONZALEZ [facility] 5 15:56:26 Hypertensive heart disease with congestive heart failure 6646632 Active 2024 CAILIN GONZALEZ [facility] 5 15:57:01 Chronic pain 63949148 Active 2024 CAILIN GONZALEZ [facility] 5 10:40:10 Low back pain 276138949 Active 2024 CAILIN GONZALEZ [facility] 5 15:59:55 Mixed anxiety and depressive disorder 489989664 Active 2024 CAILIN GONZALEZ [facility] 5 14:02:11 Candidiasis of vagina 74912868 Active 2024 CAILIN GONZALEZ [facility] 5 14:02:54 Problem Notes None recorded. Medical Equipment None Reported. Medications Name Sig Start Date Stop Date Status Note LastModified by Organization Details LastModified Time cyclobenzaprin e 10 mg tablet TAKE ONE TABLET BY MOUTH TWICE DAILY NEEDED active Not Available Not Available No t Available prednisone 10 mg tablet TAKE ONE TABLET BY MOUTH DAILY active Not Available Not Available No t Available sulfasalazine 500 mg tablet TAKE TWO TABLETS BY MOUTH TWICE DAILY active Not Available Not Available No t Available bumetanide 2 mg tablet TAKE TWO TABLETS BY MOUTH ONCE DAILY FOR 30 DAYS active Not Available Not Available No t Available metoprolol tartrate 100 mg tablet TAKE ONE TABLET BY MOUTH TWICE DAILY WITH FOOD active Not Available Not Available No t Available hydrocodone 5 mg-acetaminoph en 325 mg tablet Take 2 tablets every day by oral route at bedtime for 30 days. 2024 active Not Available Not Available Not [facility] ondansetron HCl 4 mg tablet TAKE ONE TABLET BY MOUTH EVERY 4 HOURS NEEDED FOR NAUSEA active Not Available Not Available No t Available isosorbide mononitrate ER 30 mg tablet,extende d release 24 hr TAKE ONE TABLET BY MOUTH DAILY active Not Available Not Available No t Available hydrocodone 10 mg-acetaminoph en 325 mg tablet TAKE ONE TABLET BY MOUTH EVERY 8 HOURS NEEDED DO NOT EXCEED THREE TABLETS PER DAY - 30 DAYS active Not Available Not Available No t Available spironolactone 25 mg tablet TAKE ONE TABLET BY MOUTH EVERY MORNING active Not Available Not Available No t Available lorazepam 0.5 mg tablet Take 1 tablet twice a day by oral route as needed for 21 days. 2024 active Not Available Not Available Not [facility] hydrocodone 7.5 mg-acetaminoph en 325 mg tablet Take 1 tablet every 8 hours by oral route as needed for 30 days. 2024 active Not Available Not Available Not [facility] ropinirole 2 mg tablet TAKE ONE TABLET BY MOUTH ONE TO THREE HOURS BEFORE BEDTIME ONCE DAILY active Not Available Not Available No t Available pantoprazole 40 mg tablet,delayed release TAKE ONE TABLET BY MOUTH DAILY active Not Available Not Available No t Available trazodone 150 mg tablet TAKE ONE TABLET BY MOUTH ONCE DAILY AT BEDTIME NEEDED active Not Available Not Available No t Available nitroglycerin 0.4 mg sublingual tablet DISSOLVE 1 TABLET UNDER THE TONGUE EVERY 5 MINUTES NEEDED FOR CHEST PAIN; DO NOT EXCEED 3 DOSES PER EPISODE active Not Available Not Available No t Available hydroxychloroq uine 200 mg tablet TAKE ONE TABLET BY MOUTH TWICE DAILY active Not Available Not Available No t Available lisinopril 40 mg tablet TAKE ONE TABLET BY MOUTH ONCE DAILY active Not Available Not Available No t Available metoclopramide 10 mg tablet TAKE ONE TABLET BY MOUTH TWICE DAILY BEFORE MEALS active Not Available Not Available No t Available escitalopram 10 mg tablet TAKE ONE TABLET BY MOUTH DAILY active Not Available Not Available No t Available Lyrica 150 mg capsule Take 1 capsule twice a day by oral route for 30 days. 2024 active Not Available Not Available Not Radha talbert Breztri Aerosphere 160 mcg-9mcg-4.8mc g/actuation HFA aerosol inhaler INHALE TWO PUFFS INTO LUNGS TWICE DAILY active Not Available Not Available No t Available Vitals Date Recorded Body weight Heart rate Respiratory rate Body temperature Oxygen saturation Oxygen saturation in Arterial blood by Pulse oximetry Systolic And Diastolic Provider Name and Address Organization Details Last Updated DateTime 5 94537.1 9 g 78 /min 19 /min 98.9 [degF] 93 % 93 % 92/63 mm[Hg] [facility] 5 11:55:57 Date Recorded Body weight Heart rate Respiratory rate Body temperature Oxygen saturation Oxygen saturation in Arterial blood by Pulse oximetry Systolic And Diastolic Provider Name and Address Organization Details Last Updated DateTime 5 12342.1 9 g 86 /min 20 /min 98.1 [degF] 92 % 92 % 103/50 mm[Hg] [facility] 5 13:35:16 Date Recorded Body weight Heart rate Respiratory rate Body temperature Oxygen saturation Oxygen saturation in Arterial blood by Pulse oximetry Systolic And Diastolic Provider Name and Address Organization Details Last Updated DateTime 5 76074.5 9 g 69 /min 16 /min 97.9 [degF] 98 % 98 % 106/56 mm[Hg] [facility] 5 15:29:08 Date Recorded Body weight Heart rate Respiratory rate Body temperature Oxygen saturation Oxygen saturation in Arterial blood by Pulse oximetry Systolic And Diastolic Provider Name and Address Organization Details Last Updated DateTime 5 30957.5 9 g 89 /min 20 /min 98.4 [degF] 93 % 93 % 126/69 mm[Hg] [facility] 5 14:46:54 Date Recorded Body weight Heart rate Respiratory rate Body temperature Oxygen saturation Oxygen saturation in Arterial blood by Pulse oximetry Systolic And Diastolic Provider Name and Address Organization Details Last Updated DateTime 5 22047.5 9 g 90 /min 18 /min 97.9 [degF] 94 % 94 % 130/78 mm[Hg] CAILIN GONZALEZ [facility] 5 13:59:18 Social History None recorded. Functional Status None recorded. Mental Status None recorded. Family History Nothing Reported. Medical History No medical history recorded. Gynecological HistoryNo gynecological history recorded. Obstetrics History GPAL:G 0 P 0 0 0 0 Immunizations Vaccine Type Date Status Note Provider Nam e and Address Organization Details Recorded Time Tdap 9 completed Not Available [facility] 10/24/2024 11:36:58 Influenza, split virus, trivalent, preservative 1 completed Not Available [facility] 10/24/2024 11:36:58 Influenza, split virus, trivalent, preservative 2 completed Not Available [facility] 10/24/2024 11:36:58 Pneumococcal conjugate PCV 13 6 completed Not Available [facility] 10/24/2024 11:36:58 pneumococcal polysaccharide PPV23 8 completed Not Available [facility] 10/24/2024 11:36:58 zoster recombinant 0 completed Not Available [facility] 10/24/2024 11:36:58 Influenza, MDCK, quadrivalent, PF 2 completed Not Available [facility] 10/24/2024 11:36:58 Respiratory syncytial virus (RSV) MAB, unspecified 4 completed Not Available [facility] 10/24/2024 11:36:58 Influenza, high-dose, trivalent, PF 4 completed Not Available [facility] 10/24/2024 11:36:58 Influenza, split virus, trivalent, PF 0 completed Not Available [facility] 10/24/2024 11:36:58 Past Encounters Encounter ID Performer Location Encounter Start Date Encounter Closed Date Diagnosis/Indication Diagnosis SNOMED-CT Code Diagnosis ICD10 Code Diagnosis IMO Codes Diagnosis Note [id number] Mushtaq Watts DO [facility] ([facility]) [address] [place] [address] 03/22/2024 15:57:14 03/29/2024 07:50:30 Hospital inpatient stay within past 30 days [id number] 106 Z76.89 COVID-19 129613843 U07.1 Chronic ob structive pulmonary disease 96175950 J44.9 Hypertensi ve heart disease with congestive heart failure 6823386 I11.0 [id number] Mushtaq Watts DO [facility] ([facility]) [address] [place], [place] [address] 04/02/2024 08:34:22 04/13/2024 13:23:32 Chronic obstructive pulmonary disease 10125913 J44.9 Hypertensi ve heart disease with congestive heart failure 6548422 I11.0 [id number] Mushtaq Watts DO [facility] ([facility]) [address] [place] [address] 5 04/16/2024 15:34:42 04/18/2024 15:46:17 Hypertensive heart disease with congestive heart failure 3999223 I11.0 Muscle pain 34177552 M79 .10 [id number] Mushtaq Watts DO [facility] ([facility]) [address] [place] [address] 5 05/28/2024 10:42:03 05/29/2024 12:33:28 Chronic obstructive pulmonary disease 99809844 J44.9 Hypertensi ve heart disease with congestive heart failure 6532788 I11.0 Chronic pain 28269964 G8 9.29 [id number] Mushtaq Watts DO [facility] ([facility]) [address] [place], [place] [address] 06/27/2024 08:17:54 07/03/2024 09:24:03 Chronic obstructive pulmonary disease 00116237 J44.9 Hypertensi ve heart disease with congestive heart failure 0418036 I11.0 Chronic pain 07596703 G8 9.29 [id number] Mushtaq Watts DO [facility] ([facility]) [address] [place] [address] 5 07/25/2024 09:20:42 07/31/2024 12:55:56 Chronic obstructive pulmonary disease 36592826 J44.9 Hypertensi ve heart disease with congestive heart failure 6243119 I11.0 Chronic pain 65202382 G8 9.29 [id number] Mushtaq Watts DO [facility] ([facility]) [address] [place] [address] 08/15/2024 13:10:48 08/15/2024 16:12:51 Hypertensive heart disease with congestive heart failure 9544781 I11.0 Depressive disorder 3548 9007 F32.9 [id number] Mushtaq WattsDO [facility] ([facility]) [address] [place] [phone] 09/03/2024 14:38:01 09/12/2024 11:35:50 Post-discharge follow-up [id number] Z09 767243 Closed fra cture of hip 804577891 S72.001S [id number] Hypertensi ve heart disease with congestive heart failure 4229452 I11.0 Chronic pain 00235910 G8 9.29 Chronic ob structive pulmonary disease 09447726 J44.9 [id number] Mushtaq DO Stefanie [facility] ([facility]) [address] [place] [address] 5 09/12/2024 12:51:45 09/18/2024 13:27:29 Mixed anxiety and depressive disorder 542890798 F41.9 F32.A [id number] [place] [address] 523504 B37.31 [id number] Mushtaq Stefanie [facility] ([facility]) [address] [place], [place] [address] 10/03/2024 14:43:17 10/09/2024 13:48:22 Pain of hip region 78612352 M25.551 927766 [id number] Mushtaq Watts [facility] ([facility]) [address] [place], [place] [address] 10/22/2024 13:16:08 10/24/2024 09:50:54 Chronic obstructive pulmonary disease 10186764 J44.9 Mixed anxi ety and depressive disorder 687944491 F32.A F41.9 693781 [id number] Mushtaq Watts [facility] ([facility]) [address] [place] [address] 10/24/2024 11:36:35 10/30/2024 17:00:53 Mixed anxiety and depressive disorder 107250894 F32.A F41.9 [id number] Health Concerns Section Related Observation LastModified by Organization Detai ls LastModified Time None Recorded Concern Status LastModified by Organization Details LastModified Time None Recorded Advance Directives Directive None Recorded Payers Insurance Date Sequence Insurance Name Policy Number Policy [place] Covered Member ID [place] Member ID Guarantor Name 05/28/2024 1 [employer] (MEDICARE REPLACEMENT/A DVANTAGE - PPO) Tatiana Alvarez [id number] Tatiana Alvarez 10/22/2024 2 [place] Tatiana Alvarez [id number] Tatiana Alvarez 10/22/2024 [place] [facility] ([facility] L) Tatiana Alvarez [id number] Tatiana Alvarez 10/22/2024 1 [place] Tatiana Alvarez [id number] Tatiana Alvarez 10/22/2024 [place] - [facility] (MEDICARE) Tatiana Alvarez [id number] Tatiana Alvarez Notes Date Note Type Note Provider Name and Address Organization Details Recorded Time 5 text/html COPDReported by PatientHPI:For duration, patient reportschronicandhas noted for years. For severity, patient reportssevere. For context, patient reportscigarette smoking. For alleviating factors, patient reportsrelieved with oxygen.ROS as noted in the HPI readmit from hospital after fall at facility resulted in hip fracture. Mushtaq Watts DO [address] [place] [address], [phone], [facility], L[facility]ianLJu 09/11/2024 17:21:04 5 text/html Generalized Anxiety DisorderReported by PatientHPIFor associated symptoms, patient reportsexcess anxiety. For onset/timing, patient reports___ years. For severity, patient reportsmoderate.ROS as noted in the HPI staff reports increase in anxiety, given 1x dose of ativan over the weekend by DOC. Staff reports it helped and wanted to get order. Patient also complains about pain near the top of her vagina. Mushtaq Watts DO [address] [place] [address], [phone], [facility]. 09/14/2024 14:34:02 5 text/html Generalized Anxiety DisorderReported by PatientHPIFor associated symptoms, patient reportsexcess anxiety. For onset/timing, patient reports___ years. For severity, patient reportsmoderate.ROS as noted in the HPI increased pain in right hip, reports she is worried she damaged it further after recent fracture. Mushtaq Watts [address] [place] [address], [phone], [facility], LAyushC. 10/07/2024 13:56:00 5 text/html Generalized Anxiety DisorderReported by PatientHPIFor associated symptoms, patient reportsexcess anxiety. For onset/timing, patient reports___ years. For severity, patient reportsmoderate.ROS as noted in the HPI staff reports increased irritatoin and frequently tearful. Mushtaq Watts DO [address] [place] [address], [phone], [facility], [facility]. 10/22/2024 15:24:09 5 text/html Generalized Anxiety DisorderReported by PatientHPIFor associated symptoms, patient reportsexcess anxiety. For onset/timing, patient reports___ years. For severity, patient reportsmoderate.ROS as noted in the HPI increased anxiety, tearful. Mushtaq Watts [address] [place] [address], [phone], [facility], [facility]. 10/30/2024 15:59:40 OBGyn Episode No OBEpisode recorded.
--- OUTSIDE RECORDS SUMMARY | 2024-12-15 14:54 | XMS_ITS | Patient Health Record ---
Author Organization [facility] Address [address] [place] [address] Care Team Providers Care Emt Dispatcher Name Role Phone Inocencia Jaime Unavailable [phone] Ciaranannemarie Antwan Unavailable [phone] Merari Mcdonald Unavailable [phone] Allergies Allergen (clinical drug ingredient) Drug/Non Drug Allergy documented on EMR Reaction Allergy Type Onset Date Status amoxicillin / clavulanate Augmentin diarrhea Drug Allergy Active metronidazole Flagyl Unknown Drug Allergy Act alessandra ibuprofen Ibuprofen Unknown Drug Allergy Active Reason For Referral No Information Medications Medication [...] Duration: 30 Active Adults Multivitamin *Reorder fro [facility] for eRx and Interaction Alerts* Active Temazepam 15 MG Capsule 1 capsule at bedtime as needed Orally Once a day; Duration: 30 days 03/15/2023 Active BD Luer-Antonia Syringe 3 mL 25 x 5/8 USE DIRECTED FOR B-12 INJECTIONS *Reorder from [facility] for eRx and Interaction Alerts* Active [...] MOUTH EVERY MORNING; Duration: 90 Active Nystop 019965 UNIT/GM Powder APPLY TOPICALLY TWICE DAILY FOR [...] Refused Prevnar 20 IM Intramuscular 08/16/2022 Administered [facility]-00 005 Patient tolerated well. Social History Tobacco Use: [...] W/U Status Risk Notes Problem Tobacco user (738828851) Nicotine dependence, cigarettes, uncomplicated (F17.210) Active confirmed Problem Chronic pain syndrome (376916924) Chronic pain syndrome (G89.4) 07/21/19 24 Active confirmed Problem Hypertensive heart failure (31105188) Hypertensive heart disease with heart failure (I11.0) Active confirmed Problem History of fall (441011086) History of falling (Z91.81) Active confirmed Problem Cervical radiculopathy (28677827) Cervical radiculopathy (M54.12) Active confirmed Problem Anxiety (46057117) Anxiety (F41.9) Active confirmed Problem Neuropathy (304522864) Neuropathy (G62.9) Active confirmed Problem Lumbosacral spondylosis with radiculopathy (810545280) Lumbosacral spondylosis with radiculopathy (M47.27) Active confirmed Problem Sinusitis (19210851) Sinusitis (J32.9) Active confirmed Problem Insomnia (648248739) Insomnia (G47.00) Active confirmed Problem Cervical spondylosis (381536403) Cervical spondylosis (M47.812) Active confirmed Problem Degeneration of lumbosacral intervertebral disc (68716610) Disc degeneration, lumbosacral (M51.37) Active confirmed Problem Congestive heart failure (24236564) CHF (congestive heart failure) (I50.9) Active confirmed Problem Cervical disc disorder (478582269) DDD (degenerative disc disease), cervical (M50.30) Active confirmed Problem Depression (202608405) Depression (F32.9) Active confirmed Problem COPD - Chronic obstructive pulmonary disease (85347280) COPD (chronic obstructive pulmonary disease) (J44.9) Active confirmed Problem Ulcerative colitis (53198009) Ulcerative colitis (K51.90) Active confirmed Problem Acute exacerbation of chronic obstructive airways disease (220033991) COPD with acute exacerbation (J44.1) Active confirmed Problem Systemic lupus erythematosus (82135036) Systemic lupus erythematosus, unspecified SLE type, unspecified organ involvement status (M32.9) Active confirmed Problem Allergic rhinitis (66341039) Rhinitis, allergic (J30.9) Active confirmed Problem Rheumatoid arthritis (22915928) Rheumatoid arthritis (M06.9) Active confirmed Problem Recurrent falls (113046190) Falls frequently (R29.6) Active confirmed Problem Hypertension (68364011) Hypertension (I10) Active confirmed Problem Hyperlipidemia (84055532) Hyperlipidemia (E78.5) Active confirmed Problem Cervical spondylosis without myelopathy (916203197) Cervical spondylosis with radiculopathy (M47.22) Active confirmed Problem Chronic obstructive pulmonary disease (49822057) COPD, moderate (J44.9) Active confirmed Problem Lumbosacral spondylosis without myelopathy (78218713) Spondylosis of lumbar spine (M47.816) Active confirmed Problem Abnormal gait (38681497) Abnormality of gait and mobility (R26.9) Active confirmed Problem Skin sensation disturbance (73725234) Paresthesia of bilateral legs (R20.2) Active confirmed Problem Chronic kidney disease stage 3B (disorder) (436126241) Chronic kidney disease, stage 3b (N18.32) 07/21/19 Active confirmed Problem Chronic kidney disease stage 3B (disorder) (511695141) Stage 3b chronic kidney disease (N18.32) Active confirmed Problem Lumbosacral radiculopathy (0429944) L-S radiculopathy (M54.17) Active confirmed Problem History of cancer of vulva (527445760) History of cancer of vulva (Z85.44) Active confirmed Problem Lumbosacral spondylosis (156545985) Lumbosacral spondylosis (M47.817) Active confirmed Problem Personal history of malignant neoplasm of other female genital organs (Z85.44) 07/21/19 Active confirmed Problem Abnormal gait (32543911) Unspecified abnormalities of gait and mobility (R26.9) 07/21/19 Active confirmed Problem Degeneration of lumbar intervertebral disc (03681852) Other intervertebral disc degeneration, lumbar region (M51.36) 07/21/19 Active confirmed Problem Degeneration of cervical intervertebral disc (22992258) Other cervical disc degeneration, unspecified cervical region (M50.30) 07/21/19 Active confirmed Problem Lumbosacral spondylosis without myelopathy (73710043) Other spondylosis with radiculopathy, lumbosacral region (M47.27) 07/21/19 Active confirmed Problem Cervical spondylosis without myelopathy (020182347) Other spondylosis with radiculopathy, cervical region (M47.22) 07/21/19 Active confirmed Problem Chronic obstructive pulmonary disease (45536255) Chronic obstructive pulmonary disease, unspecified (J44.9) 07/21/19 Active confirmed Problem Financial insecurity (8264066395) Financial insecurity (Z59.86) Active confirmed Problem Food insecurity (321390696) Food insecurity (Z59.41) Active confirmed Vital Signs Heart Rate 84 /min 12/20/2023 Temperature 97.2 degrees Fahrenheit 12/20/2023 Respiratory Rate 20 /min 12/20/2023 Blood pressure diastolic 80 mm Hg 12/20/2023 Oximetry 99 % 12/20/2023 Height-cm 165.1 cm 02/16/2024 Weight-kg 74.84 kg 12/20/2023 Height 65 in 02/16/2024 Blood pressure systolic 160 mm Hg 12/20/2023 Weight 165 lbs 12/20/2023 BMI 27.45 kg/m2 12/20/2023 Encounters Encounter Location Date Provider Diagnosis [facility] [address] [address] 02/16/2024 Merari Mcdonald Chronic pain syndrom e G89.4 ; Other cervical disc degeneration, unspecified cervical region M50.30 ; Cervical radiculopathy M54.12 ; Cervical spondylosis M47.812 ; Degeneration of intervertebral disc of lumbar region with discogenic back pain M51.360 ; L-S radiculopathy M54.17 ; Lumbosacral spondylosis M47.817 ; Trochanteric bursitis, right hip M70.61 ; Chronic kidney disease, stage 3b N18.32 and terminal 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 (current) use of opiate analgesic Z79.891 [facility] [address] [address] 01/19/2024 Merari Mcdonald Chronic pain syndrom e G89.4 ; Other cervical disc degeneration, unspecified cervical region M50.30 ; Cervical radiculopathy M54.12 ; Cervical spondylosis M47.812 ; Degeneration of intervertebral disc of lumbar region with discogenic back pain M51.360 ; L-S radiculopathy M54.17 ; Lumbosacral spondylosis M47.817 ; Trochanteric bursitis, right hip M70.61 ; Chronic kidney disease, stage 3b N18.32 and [facility] (current) use of opiate analgesic Z79.891 [facility] [address] [address] 12/21/2023 Antwan Dos Santos Chronic pain syndrom e G89.4 ; DDD (degenerative disc disease), cervical M50.30 ; Cervical radiculopathy M54.12 ; Cervical spondylosis M47.812 ; L-S radiculopathy M54.17 ; Lumbosacral spondylosis M47.817 ; Greater trochanteric bursitis of right hip M70.61 ; Stage 3b chronic kidney disease N18.32 ; History of cancer of vulva Z85.44 and [facility] (current) use of opiate analgesic Z79.891 [facility] [address] [address] 12/20/2023 Inocencia Jaime Hypertension I10 ; Encounter for immunization Z23 and Immunization not carried out because of patient refusal Z28.21 [facility] [place] 05/16/2024 Inocencia Jaime [facility] [place] 04/23/2024 Inocencia Jaime Hypertension I1 0 and Rheumatoid arthritis M06.9 [facility] [place] 03/14/2024 Inocencia Jaime Chronic pain sy ndrome G89.4 and Hypertension I10 [facility] [place] [address] [place] [address] 03/01/2024 Antwan Dos Santos Chronic pain syndrom e G89.4 [facility] [address] [place] [address] 02/16/2024 Antwan Dos Santos Chronic pain syndrom e G89.4 [facility] [place] 02/13/2024 Inocencia Jaime Hyperlipidemia E78.5 and CHF (congestive heart failure) I50.9 [facility] [address] [place] [address] 01/19/2024 Antwan Dos Santos [facility] [place] [address] [place] [address] 01/19/2024 Antwan Dos Santos Chronic pain syndrom e G89.4 [facility] [place] 01/17/2024 Inocencia Jaime [facility] [place] 01/10/2024 Inocencia Jaime Hyperlipidemia E78.5 and Hypertension I10 [facility] [place] 01/10/2024 Inocencia Jaime Spondylosis of lumbar spine M47.816 Assessments Encounter Date Diagnosis (ICD Code) Assessment Notes Treatment Notes Treatment Clinical Notes Section Notes 12/20/2023 Hypertension (ICD-10 - I10) Monitor BP [...] disc disease), cervical (ICD-10 - M50.30) 01/10/2024 Spondylosis of lumbar [...] degeneration, unspecified cervical region (ICD-10 - M50.30) 01/19/2024 Chronic pain syndrome (ICD-10 - G89.4) 02/13/2024 Hyperlipidemia (ICD-10 - E78.5) 02/16/2024 Chronic [...] - G89.4) 03/14/2024 Hypertension (ICD-10 - I10) 04/23/2024 Hypertension (ICD-10 - I10) 04/23/2024 Rheumatoid arthritis (ICD-10 - M06.9) Rheumatoid Arthritis (RA): Care Instructions material was published 02/16/2024 Cervical radiculopathy (ICD-10 - M54.12) 02/13/2024 CHF (congestive heart failure) (ICD-10 - I50.9) 01/19/2024 Cervical radiculopathy (ICD-10 - M54.12) 01/10/2024 Hypertension (ICD-10 - I10) Low Sodium Diet (2,000 Milligram): Care Instructions material was published 12/21/2023 Cervical radiculopathy (ICD-10 - M54.12) 12/20/2023 Encounter for immunization (ICD-10 - Z23) 12/20/2023 Immunization not carried out because of patient refusal (ICD-10 - Z28.21) 12/21/2023 Cervical spondylosis (ICD-10 - M47.812) 01/19/2024 Cervical spondylosis (ICD-10 - M47.812) 02/16/2024 Cervical spondylosis (ICD-10 - M47.812) 02/16/2024 Degeneration of intervertebral disc of lumbar region with discogenic back pain (ICD-10 - M51.360) 12/21/2023 L-S radiculopathy (ICD-10 - M54.17) 01/19/2024 Degeneration of intervertebral disc of lumbar region with discogenic back pain (ICD-10 - M51.360) 12/21/2023 Lumbosacral spondylosis (ICD-10 - M47.817) 01/19/2024 [...] of cancer of vulva (ICD-10 - Z85.44) 01/19/2024 MCC (current) use of opiate analgesic (ICD-10 - Z79.891) 02/16/2024 MCC (current) use of opiate analgesic (ICD-10 - Z79.891) 12/21/2023 MCC (current) use of opiate analgesic (ICD-10 - Z79.891) 12/21/2023 Other Maday, Nando Morel, am scribing for Antwan Dos Santos. IAntwan, personally performed the services described in this documentation , as scribed by Nando Morel, and it is both accurate and complete. 02/13/2024 Other Learning About Low-Fat Eating material was published 03/14/2024 Other Heart-Healthy Diet: Care Instructions material was published, A Healthy Heart: Care Instructions material was published Plan Of Treatment Pending Test Test Name Order Date Prothrombin Time 97232 01/13/2022 ABORh 96162, 92423 01/13/2022 Antibody Screen 53404 01/13/2022 Basic Metabolic Panel (BMP) 41103 2021 Basic Metabolic Panel (BMP) 20820 2021 Basic Metabolic Panel (BMP) 86444 2021 Basic Metabolic Panel (BMP) 75333 2021 Basic Metabolic Panel (BMP) 27932 2021 CBC w\ Auto Diff 14059 01/30/2022 CBC w\ Auto Diff 04545 01/29/2022 CBC w\ Auto Diff 03875 01/13/2022 Partial Thromboplastin Time 45864 2021 CBC Reflex Man Diff 80695, 79782 022 CBC Reflex Man Diff 18699, 15090 022 Chest PA/Lat-65198 01/20/2022 Chest PA/Lat-39037 01/13/2022 Lumbosacral Spine AP/Lat-92719 2 Lumbosacral Spine AP/Lat-70496 2 Electrocardiogram 12 Lead Tracing-59022 01/13/2022 WBC Auto Diff--05724 01/25/2022 WBC Auto Diff--90414 01/26/2022 BB ABORH-55525,23306 01/20/2022 zzzFluoro >1h4 01/25/2022 zzzMRI Outside CD 09/02/2021 zzzMRI Outside CD 09/02/2021 Future Test Test Name Order Date zzzUrine Drug Screen (confirmation by in strument) - 62656 02/20/2024 Insurance Providers Payer Name Payer Address Payer Phone Subscriber Number Group Number Insured Name Patient Relationship to Insured Coverage Start Date Coverage End Date [place] [address] [address] [place] [address] [id number] JOANN ESCALANTE Self - patient is the insured [place] Medicaid [address] [place] [address] [phone] [id number] JOANN ESCALANTE Self - patient is the insured [employer] Re[employer] [address] [address] [place] [address] [phone] [id number] JOANN ESCALANTE Self - patient is the insured Medications Administered Medication Instructions Date of Administration Dosage Notes DEPO-Medrol 06/15/2023 40 mg [id number] 3-01 Patient tolerated well. dexAMETHasone 11/18/2022 8 mL [facility]-29525-2 423-00 Patient tolertated well. dexAMETHasone 06/15/2023 4 mg [facility]-39222-5 423-00 Patient tolerated well. Ketorolac Tromethamine 05/17/2023 60 mg ms [id number] Patient tolerated well. Medical (General) History Medical [...]
--- OUTSIDE RECORDS SUMMARY | 2024-12-15 14:54 | XMS_ITS | Data Portability ---
Author Organization [place] [facility] [place], ADMIN Address [address] [place] [id number] Care Team Providers Care Developmental Therapist Name Role Phone JACK CAMERON Primary Care Provider JAZMYN FIGUEROA Referring Provider Unavailable Food Photographer Unavailable BETITO DONG OTHER OLLIE DIOP OTHER Assessment Encounter Date Assessment Date Assessment LastModified by Organization Details LastModified Time 01/16/2020 01/16/2020 Impression: 1. Gastroparesis -- Gastric emptying study 12/05/2019 revealed moderate gastroparesis only 34% emptying of the stomach at 2 hours. 2. GERD --Omeprazole 40 mg BID. --Previously treated with Omeprazole 20 mg p.o. twice daily -- EGD 10/25/2019 revealed resistance found in the upper esophageal sphincter. Distal esophageal diverticulum found just above the squamocolumnar junction. Distal esophageal acid peptic stricture. Biopsies obtained. 18 mm, 19 mm, 20 mm TTS balloon dilation. Moderate amount of bile staining throughout the esophagus suggesting esophageal dysmotility. Large amount of bile staining throughout the gastric lumen and bile pooling. Moderate nonerosive gastritis found in the gastric body and antrum. Biopsies obtained. Random duodenal biopsies obtained. Pathology random stomach biopsy chemical gastropathy. H pylori negative. Random duodenal biopsy no histopathological abnormality. Gastroesophageal junction inflamed gastric mucosa. H pylori negative. 3. Decrease in appetite. 4. nausea and vomiting 5. Altered bowel with constipation alternating with diarrhea; resolved with use of miralax. 6. Dysphagia;resolved. --EGD with dilation 10/25/2019 7. Left upper quad abdominal pain 8. Previous colonoscopy 10 years ago -- Colonoscopy 10/25/2019 revealed decreased anal sphincter tone. Small internal hemorrhoids. Mild sigmoid diverticulosis without diverticulitis or bleeding. 4 mm sessile rectal sigmoid polyp removed completely. Otherwise normal examination to the terminal ileum. Pathology hyperplastic polyp. 9. Tobacco use 2 to 3 packs/day 10. Remote history of alcohol abuse 30 years ago 11. No family history of esophageal, gastric or colorectal cancer 12. Status post partial bowel resection for obstruction many years ago diverticulitis and colitis. 13. Other medical issues: Sleep apnea, chronic rhinitis, sinusitis, facial cellulitis, laryngitis Recommendations: 1. Start Reglan 10 mg QID for gastroparesis. discussed potential side effects of tardive dyskinesia, anxiety, depression and suicidal ideation with patient. Patient verbalized understanding and agreeable to try medication. 2. Start Pepcid 40 mg at bedtime for optimal acid suppression. 3. Continue Omeprazole 40 milligrams twice daily 30 minutes prior to breakfast and supper. 4. Continue Miralax 1 capful daily. 5. Anti-reflux precautions. 6. Avoid NSAIDs as medically possible. 7. Gastroparesis diet; 5-6 small frequent meals per day; 8. Kegel exercises. 9. Discontinue tobacco use 10. Repeat screening / surveillance colonoscopy 5 years October 2024. 11. Follow-up 2 weeks for clinical reassessment after starting pepcid 40 mg at bedtime, reglan for gastroparesis. Greater than 20 minutes spent in chart review as well as evaluation and discussion with the patient regarding current treatment plan Patient presents to clinic for urgent/non-urgent outpatient visit. Patient denies any symptoms of fever, cough, shortness of breath, close contact with a person known to have COVID-19 (aka coronavirus) and denies recent travel to an area with ongoing spread of COVID-19 (aka coronavirus). Educated patient on potential risks of visit which could lead to potential exposure to COVID-19 (aka coronavirus). Patient verbalized understanding and accepts the potential risks and responsibilities of possible exposure to COVID-19 (aka coronavirus). If patient is being scheduled for urgent/non-urgent procedure patient is aware of the increased potential exposure to COVID-19 (aka coronavirus). Educated patient to perform hand hygiene on exit from the exam room. Patient verbalized understanding. [email or web address] Not available 01/16/2020 13:34:19 02/05/2020 02/05/2020 Impression: 1. Gastroparesis -- Gastric emptying study 12/05/2019 revealed moderate gastroparesis only 34% emptying of the stomach at 2 hours. 2. GERD --Omeprazole 40 mg BID along with pepcid 40 mg at bedtime. --Previously treated with Omeprazole 20 mg p.o. twice daily -- EGD 10/25/2019 revealed resistance found in the upper esophageal sphincter. Distal esophageal diverticulum found just above the squamocolumnar junction. Distal esophageal acid peptic stricture. Biopsies obtained. 18 mm, 19 mm, 20 mm TTS balloon dilation. Moderate amount of bile staining throughout the esophagus suggesting esophageal dysmotility. Large amount of bile staining throughout the gastric lumen and bile pooling. Moderate nonerosive gastritis found in the gastric body and antrum. Biopsies obtained. Random duodenal biopsies obtained. Pathology random stomach biopsy chemical gastropathy. H pylori negative. Random duodenal biopsy no histopathological abnormality. Gastroesophageal junction inflamed gastric mucosa. H pylori negative. 3. Decrease in appetite. 4. nausea and vomiting 5. Altered bowel with constipation alternating with diarrhea; resolved with use of miralax. 6. Dysphagia;resolved. --EGD with dilation 10/25/2019 7. Left upper quad abdominal pain 8. Previous colonoscopy 10 years ago -- Colonoscopy 10/25/2019 revealed decreased anal sphincter tone. Small internal hemorrhoids. Mild sigmoid diverticulosis without diverticulitis or bleeding. 4 mm sessile rectal sigmoid polyp removed completely. Otherwise normal examination to the terminal ileum. Pathology hyperplastic polyp. 9. Tobacco use 2 to 3 packs/day 10. Remote history of alcohol abuse 30 years ago 11. No family history of esophageal, gastric or colorectal cancer 12. Status post partial bowel resection for obstruction many years ago diverticulitis and colitis. 13. Other medical issues: Sleep apnea, chronic rhinitis, sinusitis, facial cellulitis, laryngitis Recommendations: 1. Continue Reglan 10 mg QID for gastroparesis. 2. Continue Omeprazole 40 milligrams twice daily 30 minutes prior to breakfast and supper along with Pepcid 40 mg at bedtime for optimal acid suppression. 3. Hold miralax due to having diarrhea. 4. Anti-reflux precautions. 5. Avoid NSAIDs as medically possible. 6. Gastroparesis diet; 5-6 small frequent meals per day; 7. Kegel exercises. 8. Discontinue tobacco use 9. Repeat screening / surveillance colonoscopy 5 years October 2024. 10. Follow-up 2-3 weeks for follow up on gastroparesis. Greater than 20 minutes spent in chart review as well as evaluation and discussion with the patient regarding current treatment plan Patient presents to clinic for urgent/non-urgent outpatient visit. Patient denies any symptoms of fever, cough, shortness of breath, close contact with a person known to have COVID-19 (aka coronavirus) and denies recent travel to an area with ongoing spread of COVID-19 (aka coronavirus). Educated patient on potential risks of visit which could lead to potential exposure to COVID-19 (aka coronavirus). Patient verbalized understanding and accepts the potential risks and responsibilities of possible exposure to COVID-19 (aka coronavirus). If patient is being scheduled for urgent/non-urgent procedure patient is aware of the increased potential exposure to COVID-19 (aka coronavirus). Educated patient to perform hand hygiene on exit from the exam room. Patient verbalized understanding. [email or web address] Not available 02/05/2020 13:00:45 03/03/2020 03/03/2020 Impression: 1. Gastroparesis -- Gastric emptying study 12/05/2019 revealed moderate gastroparesis only 34% emptying of the stomach at 2 hours. --Reglan 10 mg QID. 2. GERD --Omeprazole 40 mg BID along with pepcid 40 mg at bedtime. --Previously treated with Omeprazole 20 mg p.o. twice daily -- EGD 10/25/2019 revealed resistance found in the upper esophageal sphincter. Distal esophageal diverticulum found just above the squamocolumnar junction. Distal esophageal acid peptic stricture. Biopsies obtained. 18 mm, 19 mm, 20 mm TTS balloon dilation. Moderate amount of bile staining throughout the esophagus suggesting esophageal dysmotility. Large amount of bile staining throughout the gastric lumen and bile pooling. Moderate nonerosive gastritis found in the gastric body and antrum. Biopsies obtained. Random duodenal biopsies obtained. Pathology random stomach biopsy chemical gastropathy. H pylori negative. Random duodenal biopsy no histopathological abnormality. Gastroesophageal junction inflamed gastric mucosa. H pylori negative. 3. Decrease in appetite; resolved with use of gastroparesis diet and Reglan. 4. nausea and vomiting: currently resolved. 5. Altered bowel with constipation alternating with diarrhea; resolved with use of miralax. 6. Dysphagia;resolved. --EGD with dilation 10/25/2019 7. Left upper quad abdominal pain; resolved with use of Omeprazole and Pepcid. 8. Sigmoid diverticulosis -- Colonoscopy 10/25/2019 revealed decreased anal sphincter tone. Small internal hemorrhoids. Mild sigmoid diverticulosis without diverticulitis or bleeding. 4 mm sessile rectal sigmoid polyp removed completely. Otherwise normal examination to the terminal ileum. Pathology hyperplastic polyp. --Previous colonoscopy 10 years ago (2009) 9. Tobacco use 2 to 3 packs/day 10. Remote history of alcohol abuse 30 years ago 11. No family history of esophageal, gastric or colorectal cancer 12. Status post partial bowel resection for obstruction many years ago diverticulitis and colitis. 13. Other medical issues: Sleep apnea, chronic rhinitis, sinusitis, facial cellulitis, laryngitis Recommendations: 1. Continue Reglan 10 mg QID for gastroparesis. Patient denies any side effects to medication. 2. Continue Omeprazole 40 milligrams twice daily 30 minutes prior to breakfast and supper along with Pepcid 40 mg at bedtime for optimal acid suppression. 3. Gastroparesis diet; 5-6 small frequent meals per day 4. Anti-reflux precautions. 5. Avoid NSAIDs as medically possible. 6. Kegel exercises. 7. Discontinue tobacco use 8. Repeat screening / surveillance colonoscopy 5 years October 2024. 9. Follow-up 6-8 weeks for clinical reassessment on gastroparesis managed with Reglan. The total time of this patient encounter was 20 minutes. This was time I personally provided/performed and excludes time provided/performed by ancillary staff. This may include time spent by me preparing to see the patient (eg, review of tests); obtaining and/or reviewing separately obtained history; performing a medically appropriate examination and/or evaluation; counseling and educating the patient/family/health care manager; ordering medications, tests, or procedures; referring and communicating with other health hearing healthcare practitioner (when not separately reported); documenting clinical information in the electronic or other health record; independently interpreting results (when not separately reported) and communicating results to the patient/family/health care manager; or care coordination (when not separately reported). Patient presents to clinic for urgent/non-urgent outpatient visit. Patient denies any symptoms of fever, cough, shortness of breath, close contact with a person known to have COVID-19 (aka coronavirus) and denies recent travel to an area with ongoing spread of COVID-19 (aka coronavirus). Educated patient on potential risks of visit which could lead to potential exposure to COVID-19 (aka coronavirus). Patient verbalized understanding and accepts the potential risks and responsibilities of possible exposure to COVID-19 (aka coronavirus). If patient is being scheduled for urgent/non-urgent procedure patient is aware of the increased potential exposure to COVID-19 (aka coronavirus). Educated patient to perform hand hygiene on exit from the exam room. Patient verbalized understanding. [email or web address] Not available 03/03/2020 12:43:31 05/01/2020 05/01/2020 Impression: 1. Altered bowel functions with diarrhea 2. Gastroparesis -- Gastric emptying study 12/05/2019 revealed moderate gastroparesis only 34% emptying of the stomach at 2 hours. --Reglan 10 mg QID (holding 05/01/2020 due to diarrhea). 3. GERD --Omeprazole 40 mg BID along with pepcid 40 mg at bedtime. --Previously treated with Omeprazole 20 mg p.o. twice daily -- EGD 10/25/2019 revealed resistance found in the upper esophageal sphincter. Distal esophageal diverticulum found just above the squamocolumnar junction. Distal esophageal acid peptic stricture. Biopsies obtained. 18 mm, 19 mm, 20 mm TTS balloon dilation. Moderate amount of bile staining throughout the esophagus suggesting esophageal dysmotility. Large amount of bile staining throughout the gastric lumen and bile pooling. Moderate nonerosive gastritis found in the gastric body and antrum. Biopsies obtained. Random duodenal biopsies obtained. Pathology random stomach biopsy chemical gastropathy. H pylori negative. Random duodenal biopsy no histopathological abnormality. Gastroesophageal junction inflamed gastric mucosa. H pylori negative. 4. History of nausea and vomiting: currently resolved. 5. History of constipation alternating with diarrhea treated with miralax. 6. Dysphagia;resolved. --EGD with dilation 10/25/2019 7. Left upper quad abdominal pain; resolved with use of Omeprazole and Pepcid. 8. Sigmoid diverticulosis -- Colonoscopy 10/25/2019 revealed decreased anal sphincter tone. Small internal hemorrhoids. Mild sigmoid diverticulosis without diverticulitis or bleeding. 4 mm sessile rectal sigmoid polyp removed completely. Otherwise normal examination to the terminal ileum. Pathology hyperplastic polyp. --Previous colonoscopy 10 years ago (2009) 9. Tobacco use 2 to 3 packs/day 10. Remote history of alcohol abuse 30 years ago 11. No family history of esophageal, gastric or colorectal cancer 12. Status post partial bowel resection for obstruction many years ago diverticulitis and colitis. 13. Other medical issues: Sleep apnea, chronic rhinitis, sinusitis, facial cellulitis, laryngitis Recommendations: 1. Start Fiber supplement for altered bowel with diarrhea. 2. Hold Reglan due to causing diarrhea. 3. Continue Omeprazole 40 milligrams twice daily 30 minutes prior to breakfast and supper along with Pepcid 40 mg at bedtime for optimal acid suppression. 4. Gastroparesis diet; 5-6 small frequent meals per day 5. Anti-reflux precautions. 6. Avoid NSAIDs as medically possible. 7. Kegel exercises. 8. Discontinue tobacco use 9. Repeat screening / surveillance colonoscopy 5 years October 2024. 10. Follow-up 3-4 weeks after starting fiber supplement for diarrhea. The total time of this patient encounter was 20 minutes. This was time I personally provided/performed and excludes time provided/performed by ancillary staff. This may include time spent by me preparing to see the patient (eg, review of tests); obtaining and/or reviewing separately obtained history; performing a medically appropriate examination and/or evaluation; counseling and educating the patient/family/health care manager; ordering medications, tests, or procedures; referring and communicating with other health hearing healthcare practitioner (when not separately reported); documenting clinical information in the electronic or other health record; independently interpreting results (when not separately reported) and communicating results to the patient/family/health care manager; or care coordination (when not separately reported). Patient presents to clinic for urgent/non-urgent outpatient visit. Patient denies any symptoms of fever, cough, shortness of breath, close contact with a person known to have COVID-19 (aka coronavirus) and denies recent travel to an area with ongoing spread of COVID-19 (aka coronavirus). Educated patient on potential risks of visit which could lead to potential exposure to COVID-19 (aka coronavirus). Patient verbalized understanding and accepts the potential risks and responsibilities of possible exposure to COVID-19 (aka coronavirus). If patient is being scheduled for urgent/non-urgent procedure patient is aware of the increased potential exposure to COVID-19 (aka coronavirus). Educated patient to perform hand hygiene on exit from the exam room. Patient verbalized understanding. [email or web address] Not available 05/01/2020 12:52:46 05/26/2020 05/26/2020 Impression: 1. Altered bowel functions with diarrhea; Improved with fiber supplement daily. 2. Gastroparesis -- Gastric emptying study 12/05/2019 revealed moderate gastroparesis only 34% emptying of the stomach at 2 hours. --Reglan 10 mg BID 3. GERD --Omeprazole 40 mg BID along with pepcid 40 mg at bedtime. --Previously treated with Omeprazole 20 mg p.o. twice daily -- EGD 10/25/2019 revealed resistance found in the upper esophageal sphincter. Distal esophageal diverticulum found just above the squamocolumnar junction. Distal esophageal acid peptic stricture. Biopsies obtained. 18 mm, 19 mm, 20 mm TTS balloon dilation. Moderate amount of bile staining throughout the esophagus suggesting esophageal dysmotility. Large amount of bile staining throughout the gastric lumen and bile pooling. Moderate nonerosive gastritis found in the gastric body and antrum. Biopsies obtained. Random duodenal biopsies obtained. Pathology random stomach biopsy chemical gastropathy. H pylori negative. Random duodenal biopsy no histopathological abnormality. Gastroesophageal junction inflamed gastric mucosa. H pylori negative. 4. History of nausea and vomiting: currently resolved. 5. History of constipation alternating with diarrhea treated with miralax. 6. Dysphagia;resolved. --EGD with dilation 10/25/2019 7. Left upper quad abdominal pain; resolved with use of Omeprazole and Pepcid. 8. Sigmoid diverticulosis -- Colonoscopy 10/25/2019 revealed decreased anal sphincter tone. Small internal hemorrhoids. Mild sigmoid diverticulosis without diverticulitis or bleeding. 4 mm sessile rectal sigmoid polyp removed completely. Otherwise normal examination to the terminal ileum. Pathology hyperplastic polyp. --Previous colonoscopy 10 years ago (2009) 9. Tobacco use 2 to 3 packs/day 10. Remote history of alcohol abuse 30 years ago 11. No family history of esophageal, gastric or colorectal cancer 12. Status post partial bowel resection for obstruction many years ago diverticulitis and colitis. 13. Other medical issues: Sleep apnea, chronic rhinitis, sinusitis, facial cellulitis, laryngitis Recommendations: 1. Continue Fiber supplement for altered bowel with diarrhea. 2. Continue Omeprazole 40 milligrams twice daily 30 minutes prior to breakfast and supper along with Pepcid 40 mg at bedtime for optimal acid suppression. 3. Continue Reglan 10 mg BID for gastroparesis. 4. Gastroparesis diet; 5-6 small frequent meals per day 5. Anti-reflux precautions. 6. Avoid NSAIDs as medically possible. 7. Discontinue tobacco use 8. Repeat screening / surveillance colonoscopy 5 years October 2024. 9. Follow-up and further recommendations based on clinical course. The total time of this patient encounter was 19 minutes. This was time I personally provided/performed and excludes time provided/performed by ancillary staff. This may include time spent by me preparing to see the patient (eg, review of tests); obtaining and/or reviewing separately obtained history; performing a medically appropriate examination and/or evaluation; counseling and educating the patient/family/health care manager; ordering medications, tests, or procedures; referring and communicating with other health hearing healthcare practitioner (when not separately reported); documenting clinical information in the electronic or other health record; independently interpreting results (when not separately reported) and communicating results to the patient/family/health care manager; or care coordination (when not separately reported). Patient presents to clinic for urgent/non-urgent outpatient visit. Patient denies any symptoms of fever, cough, shortness of breath, close contact with a person known to have COVID-19 (aka coronavirus) and denies recent travel to an area with ongoing spread of COVID-19 (aka coronavirus). Educated patient on potential risks of visit which could lead to potential exposure to COVID-19 (aka coronavirus). Patient verbalized understanding and accepts the potential risks and responsibilities of possible exposure to COVID-19 (aka coronavirus). If patient is being scheduled for urgent/non-urgent procedure patient is aware of the increased potential exposure to COVID-19 (aka coronavirus). Educated patient to perform hand hygiene on exit from the exam room. Patient verbalized understanding. [email or web address] Not available 05/26/2020 10:42:50 Plan of Treatment Reminders Order Date Submit Date Provider Last Modified By Organization Details Last Modified Time Details Appointments None recorded. Lab None recorded. Referral None recorded. Procedures None recorded. Surgeries None recorded. Imaging None recorded. Medication Orders Metamucil (with sugar) 3.4 gram/7 gram oral powder 2020 021 [email or web address] [facility] [address], [place], [address], 1 13:00:26 Reglan 10 mg tablet 2019 020 [facility], [place], [address], 0 14:25:03 famotidine 40 mg tablet 2019 020 [email or web address] [facility], [address], [place], [address], 0 14:25:03 Patient TargetsNo targets recorded. Patient Instructions Encounter Date Encounter Id Patient Instructions Last Modified By Organization Details Last Modified Time 03/03/2020 [id number] gastroparesis di et education [email or web address] Not available 03/03/2020 12:44:02 gastroparesis education Not available 03/03/2020 12:44:02 Reason for Referral None Reported. Medical Equipment None Reported. Allergies Allergen ID Allergen Name Allergen Category Reaction Reaction Severity Criticality Documentation Date Start Date Code Code System Note Provider Name and Address Organization Details Recorded Time 98678 Flagyl medicatio n Not available Not available Not available 10/22/2019 6 RxNorm Kevin Alvarado LPN [facility], [place] - [facility] [place] 0 14:49:26 Medications Name Sig Start Date Stop Date Status Note LastModified by Organization Details LastModified Time prednison e 10 mg tablet TAKE ONE TABLET BY MOUTH DAILY FOR 5 DAYS NEEDED FOR JOINT PAIN FLARE 05/26 completed Not Available Not Available Not Available doxycycli ne hyclate 100 mg capsule TAKE ONE CAPSULE BY MOUTH TWICE DAILY active Not Available Not Available No t Available atorvasta tin 20 mg tablet TAKE ONE TABLET BY MOUTH DAILY active Not Available Not Available No t Available sulfasala zine 500 mg tablet TAKE TWO TABLETS BY MOUTH TWICE DAILY active Not Available Not Available No t Available albuterol sulfate 2.5 mg/3 mL (0.083 %) solution for nebulizat ion active Not Available Not Available Not Available azithromy allyson 250 mg tablet 12/11 completed Not Available Not Available Not Available ibuprofen 800 mg tablet TAKE ONE TABLET BY MOUTH TWICE DAILY NEEDED FOR PAIN active Not Available Not Available No t Available Nystop 100,000 unit/gram topical powder active Not Available Not Available Not Available lisinopri l 20 mg tablet TAKE ONE TABLET BY MOUTH DAILY active Not Available Not Available No t Available famotidin e 40 mg tablet TAKE ONE TABLET BY MOUTH AT BEDTIME active Not Available Not Available No t Available prednison e 20 mg tablet TAKE TWO TABLETS BY MOUTH DAILY FOR 5 DAYS active Not Available Not Available No t Available sulfameth oxazole 800 mg-trimet hoprim 160 mg tablet 02/04 completed Not Available Not Available Not Available hydrocodo ne 10 mg-acetam inophen 325 mg tablet TAKE ONE TABLET BY MOUTH FIVE TIMES DAILY NEEDED FOR PAIN - MUST LAST 28 DAYS active Not Available Not Available No t Available omeprazol e 40 mg capsule,d elayed release TAKE ONE CAPSULE BY MOUTH TWICE DAILY active Not Available Not Available No t Available baclofen 20 mg tablet TAKE ONE TABLET BY MOUTH TWICE DAILY active Not Available Not Available No t Available amitripty line 25 mg tablet TAKE TWO TABLETS BY MOUTH AT BEDTIME NEEDED active Not Available Not Available No t Available baclofen 10 mg tablet 12/11 completed increase d Not Available Not Available Not Available lisinopri l 10 mg tablet TAKE ONE TABLET BY MOUTH DAILY 03/03 completed Not Available Not Available Not Available lidocaine 5 % topical patch APPLY THREE PATCHES TO SKIN ONCE DAILY active Not Available Not Available No t Available omeprazol e 20 mg capsule,d elayed release 11/19 completed Not Available Not Available Not Available furosemid e 20 mg tablet TAKE TWO TABLETS BY MOUTH TWICE DAILY FOR 1 WEEK THEN DECREASE TO ONE TABLET DAILY active Not Available Not Available No t Available polyethyl chantelle glycol 3350 17 gram/dose oral powder TAKE 17 GRAMS MIXED IN LIQUID DAILY FOR 30 DAYS 2021 active Not Available Not Available Not Avai lable celecoxib 100 mg capsule 12/11 completed Not Available Not Available Not Available lisinopri l 40 mg tablet Take 1 tablet every day by oral route. 05/26 completed Not Available Not Available Not Available doxycycli ne hyclate 100 mg tablet 12/11 completed Not Available Not Available Not Available metoclopr amide 10 mg tablet TAKE ONE TABLET BY MOUTH FOUR TIMES DAILY NEEDED active Not Available Not Available No t Available pregabali n 150 mg capsule TAKE ONE CAPSULE BY MOUTH AT BEDTIME active Not Available Not Available No t Available Symbicort 160 mcg-4.5 mcg/actua tion HFA aerosol inhaler INHALE 1 PUFF INTO LUNGS TWICE DAILY active Not Available Not Available No t Available diclofena c 1 % topical gel active Not Available Not Available Not Available Natural Fiber Laxative (sugar) 3.4 gram/7 gram oral powder MIX AND DRINK ONE TABLESPO ONFUL IN LIQUID EVERY DAY active Not Available Not Available No t Available Suprep Bowel Prep Kit 17.5 gram-3.13 gram-1.6 gram oral solution Take 177 mL twice a day by oral route as directed for 1 day. 11/19 completed Not Available Not Available Not Available Incruse Ellipta 62.5 mcg/actua tion powder for inhalatio n active Not Available Not Available Not Available Narcan 4 mg/actuat ion nasal spray active Not Available Not Available Not Available Shingrix (PF) 50 mcg/0.5 mL intramusc ular suspensio n, kit ADMINIST ER 0.5ML IN THE MUSCLE DIRECTED TO BE ADMINIST ERED BY LT[facility] 05/26 completed Not Available Not Available Not Available Afluria Qd 2019- (36 mos up)(PF)60 mcg (15 mcg x4)/0.5 mL IM syringe ADM 0.5ML IM UTD 05/26 completed Not Available Not Available Not Available Vitals Date Recorded Body height Body mass index (BMI) Body weight Oxygen saturation Oxygen saturation in Arterial blood by Pulse oximetry Heart rate Body temperature Pain severity - 0-10 verbal numeric rating [Score] - Reported Systolic And Diastolic Provider Name and Address Organization Details Last Updated DateTime 1 157.48 cm 28.6 kg/m2 35424.5 7 g 93 % 93 % 96 /min 96.6 [degF] 0 148/66 mm[Hg] Janessa Bowden LPN [place] [facility] [place] 1 12:22:01 Date Recorded Body height Body mass index (BMI) Body weight Oxygen saturation Oxygen saturation in Arterial blood by Pulse oximetry Heart rate Body temperature Systolic And Diastolic Provider Name and Address Organization Details Last Updated DateTime 1 157.48 cm 29.3 kg/m2 09960.1 4 g 94 % 94 % 87 /min 97.3 [degF] 160/80 mm[Hg] Julisa Vasques LPN [address] 1 12:03:34 Date Recorded Body height Body mass index (BMI) Body weight Pain severity - 0-10 verbal numeric rating [Score] - Reported Body temperature Oxygen saturation Oxygen saturation in Arterial blood by Pulse oximetry Heart rate Systolic And Diastolic Provider Name and Address Organization Details Last Updated DateTime 1 157.48 cm 28.2 kg/m2 55022.2 2 g 0 97.5 [degF] 97 % 97 % 100 /min 135/63 mm[Hg] Jesenia Bonner LPN [address] 1 10:24:27 Date Recorded Body height Body mass index (BMI) Body weight Body temperature Heart rate Oxygen saturation Oxygen saturation in Arterial blood by Pulse oximetry Systolic And Diastolic Provider Name and Address Organization Details Last Updated DateTime 0 157.48 cm 28.7 kg/m2 31163 g 97.9 [degF] 72 /min 95 % 95 % 140/82 mm[Hg] Kevin Alvarado LPN [address] 0 10:10:27 Date Recorded Body height Body mass index (BMI) Body weight Body temperature Heart rate Oxygen saturation Oxygen saturation in Arterial blood by Pulse oximetry Pain severity - 0-10 verbal numeric rating [Score] - Reported Systolic And Diastolic Provider Name and Address Organization Details Last Updated DateTime 0 157.48 cm 28.5 kg/m2 00784.6 9 g 96.6 [degF] 94 /min 97 % 97 % 8 173/94 mm[Hg] Julisa Vasques LPN [address] 0 11:55:38 Social History Question Answer Notes LastModified by Organizat ion Details LastModified Time Tobacco Smoking Status Current Every Day Smoker Janessa Bowden LPN [facility] [address] 12/12/2019 11:39:03 How Much Tobacco Do You Smoke? 2 PPD [email or web address] Information not available 12/12/2019 How Many Years Have You Smoked Tobacco? 59 Information not available 12/12/2019 Sex: Unknown Functional Status Question Answer Note LastModified by Organizat ion Details LastModified Time Do you or have you ever used smokeless tobacco? Never used smokeless tobacco Information not available 12/12/2019 Do you or have you ever used e-cigarettes or vape? Never used electronic cigarettes Information not available 12/12/2019 Mental Status None recorded. Family History Nothing Reported. Medical History Condition Response ARTHRITIS Y RHEUMATIC FEVER N USE OF BLOOD THINNERS N HEADACHES N STROKE N HIGH CHOLESTEROL Y DIABETES N GASTROINTESTINAL BLEEDING N PATIENT DENIES SIGNIFICANT PAST MEDICAL HISTORY N HEPATITIS / LIVER DISEASE N ASTHMA N PULMONARY DISEASE Y SEIZURES N BOWEL PROBLEMS N HAVE YOU BEEN HOSPITALIZED OR SEEN IN [facility] ER IN THE PAST YEAR ? Y HERPES N THYROID DISEASE N ULCERS Y ANEMIA N DIZZINESS N GERD / HEARTBURN / REFLUX Y HYPERTENSION Y HIV / AIDS N OBESITY N ANEMIA/BLOOD DISORDER N ANEURYSM N PULMONARY EMBOLISM N HEART DISEASE Y CANCER N Gynecological HistoryNo gynecological history recorded. Obstetrics History GPAL:G 0 P 0 0 0 0 Past Encounters Encounter ID Performer Location Encounter Start Date Encounter Closed Date Diagnosis/Indication Diagnosis SNOMED-CT Code Diagnosis ICD10 Code Diagnosis IMO Codes Diagnosis Note [id number] Byron Alvarez MD [facility] [address] [facility] [place] [address] 10/22/2019 13:51:33 10/23/2019 08:28:12 Nausea 705041500 R11.0 Abdominal pain 41772070 R10.9 Diarrhea 35988415 R19.7 Constipation 89977454 K5 9.00 Dysphagia 96085999 R13.1 0 Screening colonoscopy 44 9811954 Z12.11 [id number] Byron Alvarez MD [facility] [address] [facility] [place] [address] 11/20/2019 09:51:47 11/20/2019 11:16:33 Constipation 76752261 K59.00 Decrease in appetite 643 64561 R63.0 Early satiety 884043284 R68.81 Weak anal sphincter 2496 25771 K62.89 Gastroesop hageal reflux disease without esophagitis 589218067 K21.9 [id number] Byron Alvarez MD [facility] [address] [place] [address] 12/12/2019 11:25:59 12/12/2019 12:41:33 Gastroparesis syndrome 242479264 K31.84 Hepatitis C screening 41 0454527 Z11.59 Decrease in appetite 643 04112 R63.0 Gastroesop hageal reflux disease 922773710 K21.9 [id number] Byron Alvarez MD [facility] [address] [place] [address] 01/16/2020 09:55:20 01/16/2020 13:34:47 Gastroparesis syndrome 142392965 K31.84 Constipation 40894149 K5 9.00 Gastroesop hageal reflux disease without esophagitis 612400499 K21.9 Nausea and vomiting 1693 1999 R11.2 [id number] Byron Alvarez MD [facility] [address] [place] [address] 02/05/2020 11:50:06 02/05/2020 13:18:49 Gastroparesis syndrome 735756842 K31.84 Gastroesop hageal reflux disease without esophagitis 546008257 K21.9 Nausea and vomiting 1693 1999 R11.2 Altered henry wel function 13968400 R19.4 [id number] Byron Alvarez MD [facility] [address] [place] [address] 03/03/2020 12:01:54 03/03/2020 12:45:02 Gastroparesis syndrome 803294789 K31.84 Gastroesop hageal reflux disease 093062139 K21.9 [id number] MEGHA ROMAN NP [facility] [address] [place] [address] 05/01/2020 11:53:51 05/02/2020 11:46:51 Gastroparesis syndrome 499187873 K31.84 Gastropare sis diet Gastroesop hageal reflux disease without esophagitis 762055921 K21.9 Continue Omeprazole 40 mg BID and pepcid 40 mg at bedtime GERD precaution s with dietary and lifestyle modificati ons. Altered henry wel function 77021093 R19.4 Diarrhea 45323478 R19.7 Start Fiber supplment. [id number] MEGHA ROMAN NP [facility] [address] [facility] [place] [address] 05/26/2020 09:48:06 05/26/2020 14:24:40 Altered bowel function 37285016 R19.4 Diarrhea 88492790 R19.7 Continue Fiber supplement . Gastropare sis syndrome 796678757 K31.84 Gastropare sis diet 5-6 small meals per day; Reglan 10 mg BID. Gastroesop hageal reflux disease without esophagitis 410298794 K21.9 Continue Omeprazole 40 mg BID and pepcid 40 mg at bedtime GERD precaution s with dietary and lifestyle modificati ons. Health Concerns Section Related Observation LastModified by Organization Detai ls LastModified Time None Recorded Concern Status LastModified by Organization Details LastModified Time None Recorded Advance Directives Directive None Recorded Payers Insurance Date Sequence Insurance Name Policy Number Policy [place] Covered Member ID [place] Member ID Guarantor Name 05/18/2021 1 [employer] (PPO) Tatiana Alvarez [id number] Tatiana Alvarez 05/18/2021 [employer] (MEDICARE REPLACEMENT/A DVANTAGE - PPO) Tatiana Alvarez [id number] Tatiana Alvarez 05/18/2021 2 [place] Tatiana Alvarez [id number] Tatiana Alvarez Notes Date Note Type Note Provider Name and Address Organization Details Recorded Time 01/16/2020 text/html 69 y/o female presents to clinic for follow up after making lifestyle and dietary modifications for gastroparesis. She reports that she is following the diet and eating about 4 times per day. She reports that she is having a small bowel movement daily. She reports that she has had some nausea and vomiting. She reports that she only is using the miralax 1/2 dose in the morning. She reports that she is taking her omeprazole twice daily and sometimes will take a third dose for her heartburn. MEGHA ROMAN NP [address] [facility], [place], [address], [facility] [place] 01/16/2020 13:34:45 02/05/2020 text/html 69 y/o female presents to clinic for follow up after starting pepcid 40 mg at bedtime and reglan for gastroparesis. She reports that she had to quit taking the reglan due to she thinks that it is causing her diarrhea. She reports that she gets a little nausea and if she over eats it wants to come back up. She reports that she does not have much of an appetite anymore. She reports that she is not taking the miralax at this time due to the diarrhea. She denies any recent antibiotic use. MEGHA ROMAN NP [address] [place] [address], [phone], [facility] [place] 02/05/2020 13:01:00 03/03/2020 text/html 69 y/o female presents to clinic for follow up on gastroparesis managed with reglan 10 mg QID. She reports that she does not think she is having any side effects to the Reglan. She reports that she has a good appetite. She denies any abdominal pain. She reports that she is following the gastroparesis diet. She reports that she is taking her omeprazole 40 mg BID and Pepcid 40 mg at bedtime. She denies any abdominal pain, nausea or vomiting. MEGHA ROMAN NP [address] [place] [address], [phone], [facility] [place] 03/03/2020 12:44:07 05/01/2020 text/html 69 y/o female presents to clinic follow-up on gastroparesis. Patient managing gastroparesis with Reglan and diet. She reports that she is only taking reglan once per day due to causing diarrhea. She reports that she is eating too much and gained 5 pounds since her last visit. She reports having 3-4 bowel movements before noon. She reports that she is not currently using the miralax. MEGHA ROMAN NP [address] [place] [address], [phone], [facility] [place] 05/01/2020 12:53:33 05/26/2020 text/html 69 y/o female presents to clinic after starting fiber supplement for diarrhea. She reports that she is taking fiber and having normal bowel movements. She is back to taking her Reglan BID. She denies any side effects to Reglan at this time to include tardive dyskinesia, anxiety, depression or suicidal thoughts. She reports that she is eating everything she sees. She reports that she is maintaining her weight. She reports having some heartburn and is taking her omeprazole 40 mg BID and Pepcid 40 mg at bedtime. MEGHA ROMAN, DONAL [address] [place], [address], [facility] [place] 05/26/2020 10:43:38 OBGyn Episode No OBEpisode recorded.
--- OUTSIDE RECORDS SUMMARY | 2024-12-15 14:54 | XMS_ITS | Clinical Summary ---
Author Organization [facility] Address [address] 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 Name Role Phone Unavailable Primary Care Provider Unavailabl e Encounters Date Type Department Care Team Description 2024 External Device Data [facility] ABSTRACTION Provider, Abstract 11/27/2024 External Device Data [facility] Provider, Abstract 10/30/2024 External Device Data [facility] Provider, Abstract 10/23/2024 External Device Data [facility] Provider, Abstract 10/16/2024 External Device Data [facility] Provider, Abstract 09/26/2024 External Device Data [facility]STRACTION Provider, Abstract from Last 3 Months Social History Tobacco Use Types Packs/Day Years Used Date Smoking Tobacco: Never Assessed Comments Unknown Sex and Gender Information Value Date Recorded Sex Assigned at Not on file Legal 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
[2024-12-15 14:55] VITALS: BP 158/94; PULSE 88; RESP 18; TEMP 36.7; O2SAT 98
--- NOTE | 2024-12-15 15:00 | XRR_ITS ---
PROCEDURE INFORMATION: Exam: XR Chest Exam date and time: 12/15/2024 3:16 PM Age: 74 years old Clinical indication: Screening exam; Other screening; Additional info: Psych xfer TECHNIQUE: Imaging protocol: Radiologic exam of the chest. Views: 1 view. COMPARISON: CR XR chest 1V portable [id number] 10/14/2024 7:43 AM FINDINGS: Lungs: Unremarkable. No consolidation. Pleural spaces: There is blunting of the left costophrenic angle, unchanged. Heart/Mediastinum: Enlarged cardiac silhouette, unchanged. Bones/joints: Thoracic spondylosis. XR/XR chest 1V portable [id number] IMPRESSION: 1. There is blunting of the left costophrenic angle, unchanged. 2. Enlarged cardiac silhouette, unchanged. 3. No acute interval change.
--- NOTE | 2024-12-15 15:06 | ECG_ITS ---
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
[2024-12-15 15:49] LABS: Hematocrit 36.8 % (36-47); Hemoglobin 11.70 g/dL (11.27-16.99); Mean Corpuscular HGB Conc 31.8 g/dL (30-55); Mean Corpuscular Hemoglobin 30.1 pg (27-33); Mean Corpuscular Volume 94.6 fl (85-98); Nucleated Red Blood Cells % 0 %; Platelet Count 210 10^3/cmm (157-399); Red Blood Count 3.89 10^6/uL (3.85-5.65); White Blood Count 5.46 10^3/uL (3.29-11.43)
[2024-12-15 15:50] LABS: Respiratory Syncytial Virus Ce NEGATIVE (Negative); SARS-CoV-2 PCR NEGATIVE (Negative)
[2024-12-15 15:51] LABS: Glucose Urine UA Negative (Normal); Nitrate Urine Negative (Negative); Specific Gravity, Urine 1.012 (1.005-1.030)
[2024-12-15 15:56] LABS: Add Urine Microscopic? YES
[2024-12-15 15:59] LABS: PCP Screen Urine Negative (Negative)
[2024-12-15 16:07] LABS: Acetaminophen < 5.0 ug/mL (10-30); Alanine Aminotransferase 11 U/L (0-33); Albumin Level 4.1 g/dL (3.5-5.2); Alcohol Level < 10 mg/dL (0-10); Alkaline Phosphatase 109 U/L (35-105); Anion Gap 15.8 (5-19); Aspartate Amino Transferase 15 U/L (0-32); Blood Urea Nitrogen 18 mg/dL (8-23); Calcium 9.3 mg/dL (8.5-10.5); Carbon Dioxide 26 mmol/L (22-29); Chloride 105 mmol/L (98-107); Globulin 2.7 g/dL (1.3-4.6); Glucose 154 mg/dL (65-115); Osmolality Calculated 301 mOsm/kg (285-295); Potassium 3.8 mmol/L (3.5-5.1); Salicylate < 0.3 mg/dL (3-10); Sodium 143 mmol/L (136-145); Thyroid Stimulating Hormone 0.81 uIU/mL (0.27-4.20); Total Protein 6.8 g/dL (6.6-8.7)
--- NOTE | 2024-12-15 16:11 | ED.C_ITS ---
HPI - Psych 2 General: Chief Complaint: Psychiatric Symptoms Stated Complaint: si Time Seen by Provider: 12/15/24 14:53 Source: patient and EMS Mode of arrival: EMS Limitations: no limitations History of Present Illness: Patient is a 74-year-old female [place] [facility] [place] due to reported suicide attempt. Nursing staff had a reportedly walked in on her with a gait belt around her neck trying to choke herself out. Patient tells me that she has just had enough of it all. Tells me that for the past month she has been depressed and has had suicidal thoughts, and that hang herself is always been the plan. She is very tearful and apologetic at this time, does not endorse any hallucinations or homicidal ideations. Past medical history of anxiety and depression. She will be cleared medically and transferred to geriatric psychiatric facility. MD complaint: suicidal ideation and other (suicide attempt) Associated symptoms: Reports depression and suicidal ideation; Deny auditory hallucinations, visual hallucinations or homicidal ideation If self harm: admits thoughts of self harm, has plan and has acted on plan Related Data Home Medications ?Medication ?Instructions ?Recorded ?Confirmed pantoprazole 40 mg tablet,delayed 40 mg PO DAILY 03/0612/15/24 release furosemide 20 mg tablet (Lasix) 20 mg PO DAILY 12/15/24 loperamide 2 mg capsule See Rx Instructions .Route 0 08/20/24 12/15/24 .COMPLEX PRN loose stools potassium chloride 10 mEq 10 meq PO DAILY 08/20/2410/01 capsule,extended release acetaminophen 325 mg tablet 650 mg PO BID pain 12/15/24 magnesium hydroxide 400 mg/5 mL 30 ml PO DAILY PRN Con stipation 08/28/24 12/15/24 oral suspension (Milk of Magnesia) melatonin 1 mg tablet 1 mg PO BEDTIME 08/28/2410/01 menthol 4 % topical gel (Biofreeze 1 applic topical BI D 08/28/24 12/15/24 (menthol)) metoprolol tartrate 100 mg tablet 100 mg PO DAILY 08/0812/15/24 [id number] 250 mg-dha 90 1 cap PO QAM 12/15/24 mg-epa 160 [id number] capsule (Ocuvite Adult 50 Plus) nystatin 100,000 unit/gram topical 1 applic topical Q1 2H PRN Rash 08/28/24 12/15/24 cream ondansetron HCl 4 mg tablet 4 mg PO Q8H PRN Nausea And Vomiting 08/28/24 12/15/24 hydrocodone 7.5 mg-acetaminophen 1 tab PO Q6H PRN Pain 10/14/24 12/15/24 325 mg tablet Previous Rx's ?Medication ?Instructions ?Recorded acetaminophen 500 mg tablet 500 mg PO Q6H PRN pain #90 tabs 03/10/22 (Tylenol Extra Strength) budesonide 160 mcg-glycopyr 9 2 inh inhalation BID #10 .7 grams 02/15/23 mcg-formot 4.8 mcg/actuation HFA inhaler (Breztri Aerosphere) nitroglycerin 0.4 mg sublingual 0.4 mg sublingual Q5M PRN chest 09/06/23 tablet pain #30 tabs aspirin 81 mg tablet,delayed 81 mg PO DAILY #30 tabs 0 03/21/24 release levetiracetam 500 mg tablet 500 mg PO BID #60 tabs 08/31 (Keppra) Allergies Allergy/AdvReac Type Severity Reaction Status Date / Time metronidazole (From Flagyl) Allergy Intermediate Sores on Verified 10/30/24 16:10 legs lactose AdvReac Unknown Unknown Verified 10/30/24 16:10 Review of Systems 2 General: Reports: 10 or more systems reviewed and unremarkable except in HPI and below Const: Denies: fever(s), chills or fatigue Eyes: Denies: change in vision ENMT: Denies: throat pain, ear or mastoid pain or nasal discharge Card: Denies: chest pain, palpitations, swelling of feet/ankles or lightheadedness Resp: Denies: dyspnea, productive cough or wheezing GI: Denies: abdominal pain, nausea, vomiting, diarrhea or constipation : Denies: flank pain, difficulty voiding, dysuria or urinary frequency Musc: Denies: neck pain, back pain or joint pain Skin/Breast: Denies: rash Neuro: Denies: headache(s), numbness in extremities or weakness in extremities Psych: Reports: anxiety, depression and suicidal ideation; Denies: visual hallucinations, auditory hallucinations, tactile hallucinations or homicidal ideation PFSH ED 2 PFSH: Medical History Aortic valve disease Sacroiliac (ligament) sprain Bony pelvic pain Mixed stress and urge incontinence RLS (restless legs syndrome) History of cancer of vulva s/p excision and radiation therapy Lumbar spondylosis History of PFTs 05/2020: normal spirometry and lung volumes; isolated gas transfer suggestive of pulmonary vascular disease Bright red blood per rectum Altered mental state Arm and leg movements, uncontrollable Hypertension Anxiety about health GERD (gastroesophageal reflux disease) Osteoarthritis of both hands Atherosclerosis of coronary artery Seronegative rheumatoid arthritis of both hands Lumbar stenosis with neurogenic claudication Congestive heart failure Diastolic High risk medication use COPD (chronic obstructive pulmonary disease) Sleep apnea She chose not to treat with CPAP RLS (restless legs syndrome) DDD (degenerative disc disease) Chronic pain pain clinic in [facility] Tobacco abuse 2 ppd all of her adult life, 45 + years. Aortic regurgitation mild to moderate Surgical History History of cardiac catheterization 07/2020: moderate left main, stenosis, FFR 0.94, no hemodynamically significant History of colonoscopy 07/2021 History of appendectomy History of hernia repair History of colon surgery H/O: hysterectomy Total Hysterectomy in 1969 History of lung surgery H/O hemorrhoidectomy H/O cataract extraction S/P carpal tunnel release History of bilateral carpal tunnel release Family History Mother Diabetes Heart disease Hypertension Hyperchloremia Stroke Father Alcohol abuse Sister Dementia Stroke Social History Smoking and tobacco/nicotine status: never used tobacco/nicotine Quit status (tobacco/nicotine): has tried quititng Alcohol intake: former Substance/Drug Use: never Caregiver/support person: Yes Lives independently: Yes Household members: none Marital status: Highest education level completed: GED or Equivalent service: No Current occupational status: retired and disabled Pets and animals: No Do you think of yourself as: Straight/Heterosexual Current gender identity: Female Brenda/Catholic: Zoroastrianism Physical Exam 2 Const: COMMON NORMALS: no acute distress, patient oriented x3 and no limitations GENERAL APPEARANCE: cooperative, well developed and anxious O RIENTATION/CONSCIOUSNESS: Yes awake, Yes oriented to person, Yes oriented to place and Yes oriented to time HENMT: COMMON NORMALS: normocephalic, atraumatic and hearing grossly normal bilaterally HEAD & SCALP: normocephalic and atraumatic Eye: COMMON NORMALS: Equal, round and reactive pupils present, EOMs intact bilaterally and conjunctivae normal CONJUNCTIVA: Yes conjunctivae normal P UPIL: Yes Equal, round and reactive pupils present Neck/C-Spine: COMMON NORMALS: full ROM, supple and no JVD Resp: COMMON NORMALS: normal respiratory effort, No retractions, No use of accessory muscles and clear to auscultation bilaterally AUSCULTATION: clear to auscultation bilaterally Cardio: COMMON NORMALS: no JVD, regular rate, regular rhythm, No clicks present (Cardio), No murmurs present (Cardio) and No rub (Cardio) RATE: r egular rate RHYTHM: regular rhythm Extremity: COMMON NORMALS: normal to inspection, full ROM and capillary refill normal Neuro: COMMON NORMALS: patient oriented x3, moves all extremities, no focal motor deficits and no sensory deficits noted SENSORIUM/ORIENTATION: Yes oriented to person, Yes oriented to place and Yes oriented to time Psych: COMMON NORMALS: mental status grossly normal MOOD & AFFECT: Yes anxious and Yes tearful THOUGHT CONTENT: Yes Suicidality present, No Homicidality present and No Hallucination(s) present Skin: COMMON NORMALS: no rashes or lesions noted GENERAL SKIN EXAM: no rashes or lesions noted Course 2 Vital Signs: Vital signs: Vital Signs Temperature 98.1 F 12/15/24 14:55 Pulse Rate 66 12/15/24 19:51 Respiratory Rate 18 12/15/24 18:13 Blood Pressure 160/76 12/15/24 19:51 Pulse Oximetry 91 12/15/24 19:51 Oxygen Delivery Me thod Room Air 12/15/24 18:13 [facility] - Psych Medical Decision Making Patient [facility], reportedly had attempted suicide by hanging herself with a gait belt. Reported to me that over the past month she has been feeling this way, feeling suicidal. She is cleared medically and will transfer to [facility] psych facility for further evaluation. She has been calm and cooperative here in the ED. Lab Data 12/15/24 15:31 12/15/24 15: Radiology Impressions Chest X-Ray 12/15/24 15: IMPRESSION: 1. There is blunting of the left costophrenic angle, unchanged. 2. Enlarged cardiac silhouette, unchanged. 3. No acute interval change. Laboratory Results WBC 5.46 10^3/uL (3.29-11.43) 12/15/24: RBC 3.89 10^6/uL (3.85-5.65) 12/15/24 15: Hgb 11.70 g/dL (11.27-16.99) 12/15/24 15: Hct 36.8 % (36-47) 12/15/24: MCV 94.6 fl (85-98) 12/15/24: MCH 30.1 pg (27-33) 12/15/24: MCHC 31.8 g/dL (30-55) 12/15/24: RDW 14.6 % (12.1-15.1) 12/15/24: Plt Count 210 10^3/cmm (157-399) 12/15/24: MPV 9.2 fL (7.4-10.4) 12/15/24 15: Neut % (Auto) 54.8 % 12/15/24: Lymph % (Auto) 34.8 % 12/15/24: [place] % (Auto) 8.1 % 12/15/24: Eos % (Auto) 1.5 % 12/15/24: Baso % (Auto) 0.4 % 12/15/24: Neut # (Auto) 3.00 10^3/uL (1.8-7.7) 12/15/24: Lymph # (Auto) 1.9 10^3/uL (0.8-4.8) 12/15/24: [place] # (Auto) 0.4 10^3/uL (0.2-0.9) 12/15/24 15: Eos # (Auto) 0.1 10^3/uL (0.0-0.8) 12/15/24: Baso # (Auto) 0.0 10^3/uL (0.0-0.1) 12/15/24 15:31 Nucleated RBC % (auto) 0 % 12/15/24 15: Nucleated RBCs # 0.0 /100WBC 12/15/24 15:31 Sodium 143 mmol/L (136-145) 12/15/24 15:31 Potassium 3.8 mmol/L (3.5-5.1) 12/15/24 15: Chloride 105 mmol/L (98-107) 12/15/24 15:31 Carbon Dioxide 26 mmol/L (22-29) 12/15/24 15:31 Anion Gap 15.8 (5-19) 12/15/24 15: BUN 18 mg/dL (8-23) 12/15/24 15: Creatinine 0.8 mg/dL (0.5-0.9) 12/15/24 15:31 GFR Calculation Not Reportable 12/15/24 15: Glucose 154 mg/dL (65-115) H 12/15/24 15:31 Calculated Osmolality 301 mOsm/kg (285-295) H 12/15/24 15:31 Calcium 9.3 mg/dL (8.5-10.5) 12/15/24 15:31 Total Bilirubin 0.2 mg/dL (0.15-1.2) 12/15/24 15:31 AST 15 U/L (0-32) 12/15/24 15: ALT 11 U/L (0-33) 12/15/24 15:31 Alkaline Phosphatase 109 U/L (35-105) H 12/15/24 15:31 Total Protein 6.8 g/dL (6.6-8.7) 12/15/24 15: Albumin 4.1 g/dL (3.5-5.2) 12/15/24 15: Globulin 2.7 g/dL (1.3-4.6) 12/15/24 15: TSH 0.81 uIU/mL (0.27-4.20) 12/15/24 15:31 Urine Color Yellow (Yellow) 12/15/24 15:41 Urine Appearance Clear (CLEAR) 12/15/24 15:41 Urine pH 6.0 (5-7) 12/15/24 15:41 Ur Specific [place] 1.012 (1.005-1.030) 12/15/24 15:41 Urine Protein Negative (Negative) 12/15/24 15:41 Urine Glucose (UA) Negative (Normal) 12/15/24 15:41 Urine Ketones Negative (Negative) 12/15/24 15:41 Urine Blood Negative (Negative) 12/15/24 15:41 Urine Nitrate Negative (Negative) 12/15/24 15:41 Urine Bilirubin Negative (Negative) 12/15/24 15:41 Urine Urobilinogen 0.2 mg/dL (Negative) 12/15/24 15:41 Ur Leukocyte Esterase Negative (Negative) 12/15/24 15:41 Urine RBC 0-2 /hpf (0-2) 12/15/24 15:41 Urine WBC 0-5 /hpf (0-5) 12/15/24 15:41 Ur Squamous Epith Cells 0-5 /hpf (0-5) 12/15/24 15:41 Amorphous Sediment Not Reportable 12/15/24 15:41 Urine Bacteria None seen /hpf (NONE) 12/15/24 15:41 Hyaline Casts 0-4 /lpf H 12/15/24 15:41 Salicylates < 0.3 mg/dL (3-10) L 12/15/24 15:31 Urine Opiates Screen Positive ng/mL (Negative) H 12/15/24 15:41 Acetaminophen < 5.0 ug/mL (10-30) L 12/15/24 15:31 Ur Barbiturates Screen Negative ng/mL (Negative) 12/15/24 15:41 Ur Phencyclidine Scrn Negative ng/mL (Negative) 12/15/24 15:41 Ur Amphetamines Screen Negative ng/mL (Negative) 12/15/24 15:41 U Benzodiazepines Scrn Negative ng/mL (Negative) 12/15/24 15:41 Urine Cocaine Screen Negative ng/mL (Negative) 12/15/24 15:41 U Marijuana (THC) Screen Negative ng/mL (Negative) 12/15/24 15:41 Ethyl Alcohol < 10 mg/dL (0-10) 12/15/24 15:31 Influenza A (PCR) Negative (Negative) 12/15/24 15:10 Influenza Type B (PCR) Negative (Negative) 12/15/24 15:10 RSV (PCR) Negative (Negative) 12/15/24 15:10 SARS-CoV-2 (PCR) Negative (Negative) 12/15/24 15:10 All radiology interpretation(s) finalized by discharge Discharge Plan Discharge Patient Disposition: Xfer Psychiatric Hosp Clinical Impression: Suicidal ideation, Suicide attempt Condition: Stable Referrals: Mushtaq Watts DO [Primary Care Provider, Internal Medicine] Print Language: [place] Coding Level of Care Code ED Office Asst for Tracy Medrano
[2024-12-15 18:13] VITALS: BP 133/58; PULSE 64; RESP 18; O2SAT 93
[2024-12-15 18:18] VITALS: PULSE 64
[2024-12-15 19:51] VITALS: BP 160/76; PULSE 66; O2SAT 91
== END 2024-12-15 21:13 ==
PROVIDERS: Emergency Provider Physician Assistant; PCP Internal Medicine
DX: T14.91XA Suicide attempt, initial encounter (principal); X83.8XXA Intentional self-harm by other specified means, initial encounter; J44.9 Chronic obstructive pulmonary disease, unspecified; I10 Essential (primary) hypertension; I25.10 Atherosclerotic heart disease of native coronary artery without angina pectoris; Z87.891 Personal history of nicotine dependence; Z11.52 Encounter for screening for COVID-19
CPT/HCPCS: 71045; 80053; 80306; 80307; 81001; 84443; 85025; 87637; 93005; 99285; J9999